=== PATIENT | male | born 1940 | race Caucasian/White ===

== ENCOUNTER 2020-08-28 13:57 | Inpatient (IN) | payer MEDICARE ==
[~2020-08-28] VITALS: Ht 170.2 cm; Wt 65.4 kg
--- NOTE | 2020-08-28 14:56 | PHYS DOC ---
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, hypokalemia Past Medical History Macular degeneration, Neuropathy, eosinophilic gastritis, BPH Limited secondary to dementia Past Surgical History: Other Past Surgical History Limited secondary to dementia Alcohol Use: None Social History Limited secondary to dementia General Adult EDM: Chief Complaint: MEDICAL CLEARANCE HPI: HPI: Patient is a [age] year old [sex] who presents with [] Review of Systems: Review of Systems: Constitutional: Denies fever or chills Eyes: Denies redness or eye pain HENT: Denies nasal congestion or sore throat Respiratory: Denies cough or shortness of breath Cardiovascular: Denies chest pain or palpitations GI: Denies abdominal pain, nausea, or vomiting : Denies dysuria or hematuria Musculoskeletal: Denies back pain or joint pain Integument: Denies rash or skin lesions Neurologic: Denies headache, focal weakness or sensory changes Complete systems were reviewed and found to be within normal limits, except as documented in this note. Allergies: Allergies: Allergies Coded Allergies Type Severity Reaction Last Updated Verified No Known Drug Allergies 08/28/20 No Physical Exam: PE: Constitutional: Well developed, well nourished, no acute distress, non-toxic appearance HENT: Normocephalic, atraumatic Eyes: PERRL, EOMI, conjunctiva normal, no discharge Neck: Normal range of motion, no tenderness, supple Lungs & Thorax: No respiratory distress, equal chest rise and fall Abdomen: Soft, no tenderness Skin: Warm, dry, no erythema, no rash Back: No tenderness, no CVA tenderness Extremities: No tenderness, ROM intact, no edema Neurologic: Alert and oriented X 3, normal motor function, normal sensory function, no focal deficits noted Psychologic: Affect normal, judgment normal Current Patient Data: Vital Signs: Vital Signs Date Time Temp Pulse Resp B/P (MAP) Pulse Ox O2 Delivery O2 Flow Rate FiO2 08/28/20 14:00 98.6 62 16 116/46 96 Room Air EKG: EKG: @1410 NSR at 64bpm, NO ST elevation, QRS 90ms, QT/QTc 412/429ms, t wave inversion II-III and aVF Radiology/Procedures: Radiology/Procedures: [] Heart Score: C/O Chest Pain: N/A Course & Med Decision Making: Course & Med Decision Making Pertinent Labs and Imaging studies reviewed. (See chart for details) Patient medically stable to continue admission to [facility] for further evaluation and treatment. Discussed findings and plan with insurance administrative assistant, who acknowledges understanding and agreement. Carmen Disclaimer: Carmen Disclaimer: This electronic medical record was generated, in whole or in part, using a voice recognition dictation system. Departure Departure: Impression: Primary Impression: Medical clearance for psychiatric admission Disposition: [address] [place] [address] ([facility]) Condition: STABLE Referrals: CHELSEA ANGELES (PCP) RE NEGRO DO Aug 28, 2020 14:56
[2020-08-28 14:58] LABS: BASO % 1 % (0-3); EOS # 0.4 x10^3/uL (0.0-0.7); EOS % 8 % (0-3); HEMATOCRIT 40.1 % (39.0-53.0); HEMOGLOBIN 13.3 g/dL (13.0-17.5); LYMPH # 1.2 x10^3/uL (1.0-4.8); LYMPH % 21 % (24-48); MEAN CORPUSCULAR HEMOGLOBIN 29 pg (25-35); MEAN CORPUSCULAR HGB CONC 33 g/dL (31-37); MEAN CORPUSCULAR VOLUME 88 fL (79-100); MONO # 0.6 x10^3/uL (0.0-1.1); MONO % 11 % (0-9); NEUT # 3.4 x10^3uL (1.8-7.7); NEUT % 60 % (31-73); PLATELET COUNT 134 x10^3/uL (140-400); RED BLOOD COUNT 4.54 x10^6/uL (4.30-5.70); RED CELL DISTRIBUTION WIDTH 15.4 % (11.5-14.5); WHITE BLOOD COUNT 5.7 x10^3/uL (4.0-11.0)
[2020-08-28 14:59] LABS: CREATININE 0.9 mg/dL (0.7-1.3); GFR 81.8; POTASSIUM 4.2 mmol/L (3.5-5.1)
[2020-08-28 15:08] LABS: BACTERIA,URINE 0 /HPF (0-FEW); BILIRUBIN,URINE NEG (NEG); CLARITY,URINE CLEAR; COLOR,URINE YELLOW; GLUCOSE,URINE NEG (NEG); NITRITE,URINE NEG (NEG); RBC,URINE 0 /HPF (0-2); SQUAMOUS EPITHELIAL CELL,UR FEW /LPF; WBC,URINE OCC /HPF (0-4)
[2020-08-28 15:13] LABS: ALBUMIN 3.8 g/dL (3.4-5.0); ALBUMIN/GLOBULIN RATIO 1.4 (1.0-1.7); MAGNESIUM 2.1 mg/dL (1.8-2.4); TOTAL BILIRUBIN 0.5 mg/dL (0.2-1.0); TOTAL PROTEIN 6.6 g/dL (6.4-8.2)
[2020-08-28] MEDS ORDERED: NEOMY/BACITR/POLYMYXIN OINT PACKET. TP ONE (15:15)
--- NOTE | 2020-08-28 15:40 | NUR ---
Admission Note with Justification for Admission to [facility] Patient admitted to [facility] for protective oversight for emergency stabilization of acute psychiatric crisis. Pt admitted from: [facility] Mode of arrival: Secure Transport Accompanied By: [facility] Staff Precipitating behaviors that initiated intake and admission: increased agitation, physically aggressive towards staff, swings cane at staff, inconsistent with taking meds, wandering Description of failure of out patient attempts at stabilization in previous setting list behavior and medication trials: med changes, redirection Behaviors and assessment findings upon admission: Pt very resistive with staff, refusing to get up from the gurney. Once he finally stood up from the gurney and walked into his room, he was uncooperative with staff doing inventory on his belongings. He began to ball up his fists and attempt to hit staff. Staff x3 assist to finish doing inventory. It was given in report that pt has 2 skin tears on his R arm. Pt refusing assessment and is unable to be performed at this time d/t pt combative behaviors. PRN ativan administered with much encouragement and left pt in his room to calm. Will continue to monitor. Plan: Admit for protective oversight for adjustment and stabilization of medications, behaviors and mood. Intense treatment regimen including groups, medication adjustments, therapy, consistent regimen for ADL's, self care, and sleep hygiene. Daily monitoring by Inpatient staff, Psychiatry, and Medical Physician.
[2020-08-28] MEDS ORDERED: LORA0.5T21 PO (15:57)
[2020-08-28] MEDS: LORazepam 0.5 MG TABLET PO PRN (16:06)
[2020-08-28 16:12] VITALS: BP 119/55
[2020-08-28] MEDS ORDERED: LOPERAMIDE 2 MG CAPSULE PO PRN (16:15)
[2020-08-28] MEDS ORDERED: MAG HYDROX/AL HYDROX/SIMETH 30 ML ORAL.SUSP PO PRN ×2 (16:15→16:45)
[2020-08-28] MEDS ORDERED: BISACODYL 10 MG SUPP.RECT PR PRN (16:15)
[2020-08-28] MEDS ORDERED: POLYVINYL ALCOHOL 1.4% OPHTH SOLUTION 15ML BOTTLE. OU PRN (16:15)
[2020-08-28] MEDS ORDERED: ONDANSETRON ODT 4 MG TAB.RAPDIS PO PRN (16:15)
[2020-08-28] MEDS ORDERED: ACETAMINOPHEN 325 MG TABLET PO ONE (16:15)
[2020-08-28] MEDS ORDERED: LORazepam 0.5 MG TABLET PO PRN (16:15)
[2020-08-28] MEDS ORDERED: MAGNESIUM HYDROXIDE 2,400 MG/30 ML ORAL.SUSP. PO PRN ×2 (16:15→16:45)
[2020-08-28] MEDS ORDERED: ACETAMINOPHEN 325 MG TABLET PO PRN (16:45)
[2020-08-28] MEDS ORDERED: METHYL SALICYLATE/MENTHOL TOPICAL OINTMENT 57GM TUBE. TP PRN (16:45)
[2020-08-28 17:15] LABS: VAL ACID 41 mcg/mL (50-100)
[2020-08-28] MEDS: SERTRALINE 100 MG TABLET. PO SCH (17:22)
--- NOTE | 2020-08-28 18:19 | NUR ---
Nursing note: Pt continues to be very labile. I was able to get pictures of the skin tears on his R arm and listen to heart, lung and bowel sounds but pt continues to refuse a thorough skin assessment. Unable to complete skin assessment this shift and will pass on to night staff.
[2020-08-28] MEDS: ATORVASTATIN CALCIUM 10 MG TABLET. PO SCH (20:46)
[2020-08-28] MEDS: MULTIVITAMIN with MINERAL TABLET. PO SCH (20:46)
[2020-08-28] MEDS: MIRTAZAPINE 15 MG TABLET PO SCH (20:47)
[2020-08-28] MEDS: QUEtiapine 100 MG TABLET. PO SCH (20:47)
[2020-08-28] MEDS: DIVALPROEX ER 500 MG TAB.ER.24H PO SCH (20:47)
[2020-08-28] MEDS: ACETAMINOPHEN 325 MG TABLET PO SCH (20:47)
[2020-08-28] MEDS: DICLOFENAC SODIUM 1% TOPICAL GEL 100GM TUBE. TP SCH (21:41)
--- NOTE | 2020-08-28 21:53 | EKG ---
[address] [address] Test Date: 2020-08-28 Test Time: 14:10:40 Pat Name: IGLESIA LEUNG Department: Room: Gender: M [employer] Supervisor: EDWARD : 1940 Requested By: RE NEGRO Order Number: [id number] Reading MD: Measurements Intervals [place] Rate: 64 P: 90 MT: 220 QRS: 80 QRSD: 90 T: -24 QT: 412 QTc: 429 Interpretive Statements SINUS RHYTHM PROLONGED MT INTERVAL ST & T ABNORMALITY, CONSIDER INFERIOR ISCHEMIA OR LEFT VENTRICULAR STRAIN ABNORMAL ECG RI6.02 No previous ECG available for comparison
--- NOTE | 2020-08-28 22:13 | PDOC ---
Exam Note: Raman Note: Please also refer to the separate dictated note~for this date of service dictated separately.~Patient seen individually. Discussed the patient with Nursing staff reviewed the chart.~Reviewed interim history and current functioning. Reviewed vital signs,~Labs/ Radiology~and current medications noted below. Continue current treatment with the changes noted in the dictated addendum note Assessment: Vital Signs/I&O: Vital Signs Date Time Temp Pulse Resp B/P (MAP) Pulse Ox O2 Delivery O2 Flow Rate FiO2 08/28/20 16:12 97.9 85 18 119/55 (76) 100 08/28/20 14:00 Room Air Labs: Laboratory Tests Test 08/28/20 14:19 08/28/20 14:26 Urine Collection Type Unknown Urine Color Yellow Urine Clarity Clear Urine pH 8.5 Urine Specific Carmen 1.020 Urine Protein 30 mg/dl (NEG-TRACE) Urine Glucose (UA) Neg mg/dL (NEG) Urine Ketones (Stick) 80 mg/dL (NEG) Urine Blood Neg (NEG) Urine Nitrite Neg (NEG) Urine Bilirubin Neg (NEG) Urine Urobilinogen Dipstick 1.0 mg/dL (0.2 mg/dL) Urine Leukocyte Esterase Neg (NEG) Urine RBC 0 /HPF (0-2) Urine WBC Occ /HPF (0-4) Urine Squamous Epithelial Cells Few /LPF Urine Bacteria 0 /HPF (0-FEW) Urine Mucus Slight /LPF White Blood Count 5.7 x10^3/uL (4.0-11.0) Red Blood Count 4.54 x10^6/uL (4.30-5.70) Hemoglobin 13.3 g/dL (13.0-17.5) Hematocrit 40.1 % (39.0-53.0) Mean Corpuscular Volume 88 fL (79-100) Mean Corpuscular Hemoglobin 29 pg (25-35) Mean Corpuscular Hemoglobin Concent 33 g/dL (31-37) Red Cell Distribution Width 15.4 % (11.5-14.5) H Platelet Count 134 x10^3/uL (140-400) L Neutrophils (%) (Auto) 60 % (31-73) Lymphocytes (%) (Auto) 21 % (24-48) L Monocytes (%) (Auto) 11 % (0-9) H Eosinophils (%) (Auto) 8 % (0-3) H Basophils (%) (Auto) 1 % (0-3) Neutrophils # (Auto) 3.4 x10^3uL (1.8-7.7) Lymphocytes # (Auto) 1.2 x10^3/uL (1.0-4.8) Monocytes # (Auto) 0.6 x10^3/uL (0.0-1.1) Eosinophils # (Auto) 0.4 x10^3/uL (0.0-0.7) Basophils # (Auto) 0.0 x10^3/uL (0.0-0.2) Sodium Level 148 mmol/L (136-145) H Potassium Level 4.2 mmol/L (3.5-5.1) Chloride Level 107 mmol/L (98-107) Carbon Dioxide Level 31 mmol/L (21-32) Anion Gap 10 (6-14) Blood Urea Nitrogen 41 mg/dL (8-26) H Creatinine 0.9 mg/dL (0.7-1.3) Estimated GFR (Cockcroft-Gault) 81.8 BUN/Creatinine Ratio 46 (6-20) H Glucose Level 87 mg/dL (70-99) Calcium Level 9.0 mg/dL (8.5-10.1) Magnesium Level 2.1 mg/dL (1.8-2.4) Total Bilirubin 0.5 mg/dL (0.2-1.0) Aspartate Amino Transferase (AST) 22 U/L (15-37) Alanine Aminotransferase (ALT) 30 U/L (16-63) Alkaline Phosphatase 54 U/L (46-116) Creatine Kinase 81 U/L (39-308) Creatine Kinase MB (Mass) 1.9 ng/mL (0.0-3.6) Creatine Kinase MB Relative Index 2.3 % (0-4) Troponin I Quantitative < 0.017 ng/mL (0-0.055) Total Protein 6.6 g/dL (6.4-8.2) Albumin 3.8 g/dL (3.4-5.0) Albumin/Globulin Ratio 1.4 (1.0-1.7) Valproic Acid Level 41 mcg/mL (50-100) L Valproic Acid Last Dose Date Unknown Valproic Acid Last Dose Time Unknown Current Medications: Meds: Current Medications Medications (Trade) Dose Ordered Sig/Abundio Route PRN Reason Start Time Stop Time Status Last Admin Dose Admin Neomycin/ Polymyxin/ Bacitracin (Triple Antibiotic Ointment) 1 pkt 1X ONCE TP 08/28/20 15:15 08/28/20 15:16 DC 08/28/20 15:14 Lorazepam (Ativan) 0.5 mg PRN BID PRN PO ANXIETY 08/28/20 16:00 08/28/20 16:06 Atorvastatin Calcium (Lipitor) 10 mg QHS PO 08/28/20 21:00 08/28/20 20:46 Divalproex Sodium (Depakote Er) 500 mg QHS PO 08/28/20 21:00 08/28/20 20:47 Mirtazapine (Remeron) 15 mg QHS PO 08/28/20 21:00 08/28/20 20:47 Multivitamins/ Calcium (Thera-M Plus) 1 tab BID PO 08/28/20 21:00 08/28/20 20:46 Quetiapine Fumarate (SEROquel) 100 mg HS PO 08/28/20 21:00 08/28/20 20:47 Sertraline HCl (Zoloft) 100 mg 1700 PO 08/28/20 17:30 08/28/20 17:22 Acetaminophen (Tylenol) 650 mg BID PO 08/28/20 21:00 08/28/20 20:47 I have reviewed the current psychotropics carefully including drug interactions. Risk benefit ratio favors no change other than as noted in my dictated progress note. Diagnosis: Problems: (1) Medical clearance for psychiatric admission DUANE NINO MD Aug 28, 2020 22:13
--- NOTE | 2020-08-28 22:25 | HP ---
ADMIT DATE: 08/28/2020 PSYCHIATRIC ADMISSION HISTORY/EVALUATION This note covers elements not covered in my initial note of 08/28. IDENTIFYING DATA: The patient is a 79-year-old male referred to us from [facility] in [place], [place] by Dr. Harry Perdomo, his primary care physician on account of worsening confusion with increased agitation, being physically aggressive towards staff, swinging his cane at staff. He was inconsistent with taking his medications, wandering, physically aggressive. Medication adjustments had been made by his primary care physician and he was redirected and behavioral interventions were instituted, but he had failed all of this. His behavior has been deemed dangerous, unmanageable, having failed outpatient psychiatric interventions. He is referred for inpatient psychiatric stabilization and admitted by Heidy Anand, his and designated power of finance attorney. Discussed the patient with nursing staff, met with the patient individually, previously discussed with Viola Tomas, medical staff services coordinator, reviewed information from [facility]. CHIEF COMPLAINT: "I have been here 3 or 4 days." The patient in fact was admitted earlier today. HISTORY OF PRESENT ILLNESS: The patient has a history of major neurocognitive disorder, vascular, possibly Alzheimer's with delusion, depression, behavioral disturbance along with anxiety disorder and impulse control disorder. He has been increasingly agitated with marked mood lability, paranoid, psychotic with sleep and appetite changes. No active suicidal or homicidal ideation, but behaviors have been aggressive, disruptive. No clear history of bipolar disorder. PAST PSYCHIATRIC HISTORY: As above. PAST MEDICAL HISTORY: Positive for hypokalemia, neuropathy, macular degeneration. He is legally blind, has sensorineural hearing loss, tinnitus, hypertension, status post CVA, gastritis, osteoarthritis of knee, osteoporosis, BPH. DRUG ALLERGIES: Negative. CODE STATUS: DNR. Accu-Cheks: None. DIET: Regular. Ambulates with walker. CURRENT PSYCHOTROPICS: Depakote ER 250 mg at bedtime, Ativan 0.5 mg b.i.d. p.r.n. anxiety, Remeron 15 mg at bedtime, Seroquel 50 mg at bedtime p.r.n. and Seroquel 100 mg at bedtime scheduled, Zoloft 100 mg at bedtime. FAMILY HISTORY: Noncontributory. SOCIAL HISTORY: No history of alcohol, drug abuse, physical, sexual or elder abuse. He is not known to be a perpetrator. He is retired from the [employer]. REVIEW OF SYSTEMS: Ambulation impaired. No CV, , pulmonary, eye, ENT system symptoms on review. Reliability poor. MENTAL STATUS EXAM: Oriented to himself. Insight, judgment, recent and remote memory, attention, concentration, fund of knowledge poor consistent with his diagnosis. 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 Memory is quite impaired. He was unaware of the year or who the president is. 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 Rest as above. PLAN: Admit to geropsychiatry unit at [facility]. I will see the patient daily individually from a psychiatric standpoint, medical followup with Dr. Pappas/Dr. Weber. Continue the patient on his current psychotropics, observe baseline, adjust as clinically indicated. We will adjust Depakote to reach therapeutic level and look at other options with psychotropics depending on his appropriately. ESTIMATED LENGTH OF STAY: 10-12 days. DISPOSITION: Back to [facility] when stable. KALLIE DR: Judd TID: [id number]
[2020-08-28] MEDS: QUEtiapine 50 MG TABLET. PO PRN (22:48)
--- NOTE | 2020-08-29 02:34 | NUR ---
Pt has remained labile tonight when doing cares he quickly becomes agitated and swings at staff and one time threatened to "stomp your face if you don't leave me alone". He took HS meds whole via spoon with prompting. He has been difficult to redirect and has not slept tonight. PRN seroquel was given at 2250 but has had minimal effect. He remains very confused and is looking for family members.
[2020-08-29] MEDS: DICLOFENAC SODIUM 1% TOPICAL GEL 100GM TUBE. TP SCH ×3 (06:00→22:00)
[2020-08-29 07:09] LABS: ALBUMIN 4.3 g/dL (3.4-5.0); ALBUMIN/GLOBULIN RATIO 1.3 (1.0-1.7); CALCIUM 9.5 mg/dL (8.5-10.1); GFR 72.5; POTASSIUM 3.8 mmol/L (3.5-5.1); TOTAL BILIRUBIN 0.5 mg/dL (0.2-1.0); TOTAL PROTEIN 7.6 g/dL (6.4-8.2)
[2020-08-29 07:15] LABS: BASO % 1 % (0-3); EOS # 0.4 x10^3/uL (0.0-0.7); EOS % 9 % (0-3); HEMATOCRIT 41.3 % (39.0-53.0); HEMOGLOBIN 13.6 g/dL (13.0-17.5); LYMPH # 1.5 x10^3/uL (1.0-4.8); LYMPH % 30 % (24-48); MEAN CORPUSCULAR HEMOGLOBIN 29 pg (25-35); MEAN CORPUSCULAR HGB CONC 33 g/dL (31-37); MEAN CORPUSCULAR VOLUME 88 fL (79-100); MONO # 0.7 x10^3/uL (0.0-1.1); MONO % 14 % (0-9); NEUT # 2.2 x10^3uL (1.8-7.7); NEUT % 46 % (31-73); PLATELET COUNT 138 x10^3/uL (140-400); RED BLOOD COUNT 4.68 x10^6/uL (4.30-5.70); RED CELL DISTRIBUTION WIDTH 15.7 % (11.5-14.5); WHITE BLOOD COUNT 4.8 x10^3/uL (4.0-11.0)
[2020-08-29] MEDS: PANTOPRAZOLE 40 MG TABLET. PO SCH (08:38)
[2020-08-29] MEDS: MULTIVITAMIN with MINERAL TABLET. PO SCH ×2 (08:38→20:36)
[2020-08-29] MEDS: POTASSIUM CHLORIDE 10 MEQ TABLET.ER. PO SCH (08:38)
[2020-08-29] MEDS: ASPIRIN ENTERIC COATED 81 MG TABLET.DR. PO SCH (08:38)
[2020-08-29] MEDS: ACETAMINOPHEN 325 MG TABLET PO SCH ×2 (08:38→20:34)
[2020-08-29 10:25] LABS: THYROXINE 4.7 ug/dL (4.5-12.0)
--- NOTE | 2020-08-29 12:35 | NUR ---
Nursing Note: Pt has been disoriented and confused majority of the day. At breakfast nursing administered medication crushed in chocolate pudding and explained to him that is what it was. He was very confused and took small bite and held it in his mouth for about a minute. Nurse tried to encourage him to swallow it and explain it to him that those were his medications and once he swallowed he could take a drink of something. He started to spit out the pudding and nursing handed him his coffee and asked him to drink it and he did and was able to drink down the rest of the pudding. The other bite of medications he had he seemed to understand that he needed to swallow and it went down just fine. Pt stated he was having slight right shoulder pain which Diclofenac Sodium was applied and he stated it seemed to help. He hung out in the day room and kept to the himself
--- NOTE | 2020-08-29 13:29 | NUR ---
Wound Care Wound care consult for skin tear to forearm. Pt has multiple small scabbed/approximated skin tears to bilateral forearms. Painted all with skin prep and left KARIN. WC will sign off at this time. Please reconsult if new wounds develop.
--- NOTE | 2020-08-29 15:42 | NUR ---
PSYCHOSOCIAL ASSESSMENT ADMISSION DATE: 08/28/20 CONTACT INFORMATION: DPOA/Guardian Contact Name: Heidy Kika- Contact [address]: [address] [place] [id number] Contact Phone #: [phone] ETHNIC ORIGIN: REASONS FOR ADMISSION: Aggressive Agitated Angry Combative Confusion/Disoriented Poor impulse control Sig. Change Appetite Sig. Change Sleep ADDITIONAL ADMISSION COMMENTS: Per intake record, increased agitation, physically aggressive towards staff, swings cane at staff, inconsistent with taking medications, wandering. REASON FOR ADMISSION IN PATIENT/FAMILY'S OWN WORDS: As noted above. PATIENT/FAMILY EXPECTATIONS FOR ADMISSION: Per Heidy, "for Eric to be at peace, to be able to sleep at night, and eat more." LIVING SITUATION: Patient lives with: Memory Care Other living arrangements: [facility] Contact Name: Caryl Contact Address: [facility] [address] Contact Phone #: [phone] Contact Fax #: [phone] FAMILY RELATIONS: Marital Status: # of Marriages: 1 # of Children: 2 [facility] Family Support: Concerned Cooperative Additional Comments r/t Family: Eric and Heidy have been for 55 years. They have tow children, Erna ([facility]) and Josefa ([facility]). Eric reported his marriage to be "very good." They have two grandchildren, Leilani and Oumou. SIGNIFICANT PSYCHIATRIC/MEDICAL HISTORY: Psychiatric/Treatment History: Eric had out patient appointments at the [facility] for PTSD. Eric was dx with dementia around 4 years ago. Pertinent Family History: Eric has a brother that has memory impairment. HISTORICAL DATA: Childhood Environment: [place] Childhood Environment Additional Comments: Eric was born in [place] to Cristian and Libby Anand. 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 Libby was a homemaker. Eric was the seventh child born of 11. Eric appeared to have fond memories of his family and shared stories about his brothers. While the family was poor, Eric reported them as loving. 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 service: [employer]- drafted into [place] War, served two years Pentecostalism background: Eric is of the Religious ralph. Sexual orientation: Heterosexual Educational Level: Eric graduated high school and attended some college. Past/Present Interests/Hobbies: Eric has enjoyed fly fishing, hunting (deer/elk/rabbits), horse riding, and walking with his . Financial support/resources: Correction/P[place] Monthly income: Unknown Person handling finances: Heidy- Do you have a history of legal problems: None reported Cultural considerations: None reported SOCIAL RELATIONSHIPS-CURRENT/PAST: [facility], in the past PCP: Dr. 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 Outbursts Dec. Aggression Other preliminary treatment comments: Eric will be invited to attend recreational therapy and SW groups while hospitalized. DISCHARGE PLANNING: Discharge planning/disposition: Memory Care Additional discharge needs identified: Out patient psychiatry if available ADDITIONAL INFORMATION: Other Pertinent Data: RENE met with Eric this afternoon to support related to recent admit and complete psychosocial assessment. Eric was alert and oriented to himself only. When asked when he arrived to the hospital, Eric replied "about four years ago." Eric had difficulty recalling recent and remote events. He enjoyed sharing about fishing and hunting and was social with SW. Eric would repeat himself frequently. RENE placed call to Heidy, , who provided history. Heidy will be involved in team meeting via phone on 08/30/20.
[2020-08-29 16:07] VITALS: BP 139/72
[2020-08-29] MEDS: SERTRALINE 100 MG TABLET. PO SCH (17:17)
[2020-08-29 20:21] LABS: THYROID STIM HORMONE (TSH) 2.827 uIU/mL (0.358-3.740)
[2020-08-29] MEDS: QUEtiapine 100 MG TABLET. PO SCH (20:34)
[2020-08-29] MEDS: MIRTAZAPINE 15 MG TABLET PO SCH (20:34)
[2020-08-29] MEDS: DIVALPROEX ER 500 MG TAB.ER.24H PO SCH (20:34)
[2020-08-29] MEDS: traZODone 50 MG TABLET. PO PRN (20:35)
[2020-08-29] MEDS: ATORVASTATIN CALCIUM 10 MG TABLET. PO SCH (20:35)
--- NOTE | 2020-08-29 22:24 | PDOC ---
Exam Note: Raman Note: Please also refer to the separate dictated note~for this date of service dictated separately.~Patient seen individually. Discussed the patient with Nursing staff reviewed the chart.~Reviewed interim history and current functioning. Reviewed vital signs,~Labs/ Radiology~and current medications noted below. Continue current treatment with the changes noted in the dictated addendum note Assessment: Vital Signs/I&O: Vital Signs Date Time Temp Pulse Resp B/P (MAP) Pulse Ox O2 Delivery O2 Flow Rate FiO2 08/29/20 16:07 97.8 80 18 139/72 (94) 98 08/28/20 14:00 Room Air I & O 08/28/20 08/28/20 08/29/20 15:00 23:00 07:00 Intake Total 480 ml 120 ml Balance 480 ml 120 ml Labs: Laboratory Tests Test 08/29/20 06:38 White Blood Count 4.8 x10^3/uL (4.0-11.0) Red Blood Count 4.68 x10^6/uL (4.30-5.70) Hemoglobin 13.6 g/dL (13.0-17.5) Hematocrit 41.3 % (39.0-53.0) Mean Corpuscular Volume 88 fL (79-100) Mean Corpuscular Hemoglobin 29 pg (25-35) Mean Corpuscular Hemoglobin Concent 33 g/dL (31-37) Red Cell Distribution Width 15.7 % (11.5-14.5) H Platelet Count 138 x10^3/uL (140-400) L Neutrophils (%) (Auto) 46 % (31-73) Lymphocytes (%) (Auto) 30 % (24-48) Monocytes (%) (Auto) 14 % (0-9) H Eosinophils (%) (Auto) 9 % (0-3) H Basophils (%) (Auto) 1 % (0-3) Neutrophils # (Auto) 2.2 x10^3uL (1.8-7.7) Lymphocytes # (Auto) 1.5 x10^3/uL (1.0-4.8) Monocytes # (Auto) 0.7 x10^3/uL (0.0-1.1) Eosinophils # (Auto) 0.4 x10^3/uL (0.0-0.7) Basophils # (Auto) 0.0 x10^3/uL (0.0-0.2) D-Dimer (Brenda) 0.42 mg/L (0.00-0.50) Sodium Level 147 mmol/L (136-145) H Potassium Level 3.8 mmol/L (3.5-5.1) Chloride Level 107 mmol/L (98-107) Carbon Dioxide Level 32 mmol/L (21-32) Anion Gap 8 (6-14) Blood Urea Nitrogen 49 mg/dL (8-26) H Creatinine 1.0 mg/dL (0.7-1.3) Estimated GFR (Cockcroft-Gault) 72.5 BUN/Creatinine Ratio 49 (6-20) H Glucose Level 82 mg/dL (70-99) Calcium Level 9.5 mg/dL (8.5-10.1) Iron Level 44 ug/dL (65-175) L Total Iron Binding Capacity 213 ug/dL (250-450) L Iron Saturation 21 % (15-34) Total Bilirubin 0.5 mg/dL (0.2-1.0) Aspartate Amino Transferase (AST) 21 U/L (15-37) Alanine Aminotransferase (ALT) 30 U/L (16-63) Alkaline Phosphatase 55 U/L (46-116) Total Protein 7.6 g/dL (6.4-8.2) Albumin 4.3 g/dL (3.4-5.0) Albumin/Globulin Ratio 1.3 (1.0-1.7) Triglycerides Level 105 mg/dL (0-150) Cholesterol Level 102 mg/dL (0-200) LDL Cholesterol, Calculated 35 mg/dL (0-100) VLDL Cholesterol, Calculated 21 mg/dL (0-40) Non-HDL Cholesterol Calculated 56 mg/dL (0-129) HDL Cholesterol 46 mg/dL (40-60) Cholesterol/HDL Ratio 2.0 Vitamin B12 Level 1132 pg/mL (247-911) H 25-Hydroxy Vitamin D Total 40.4 ng/mL (30-100) Thyroid Stimulating Hormone (TSH) 2.827 uIU/mL (0.358-3.740) Thyroxine (T4) 4.7 ug/dL (4.5-12.0) Total Triiodothyronine (TT3) 75 ng/dL (71-180) Treponema pallidum Antibody Nonreactive (Nonreactive) Current Medications: Meds: Laboratory Tests Test 08/29/20 06:38 White Blood Count 4.8 x10^3/uL Red Blood Count 4.68 x10^6/uL Hemoglobin 13.6 g/dL Hematocrit 41.3 % Mean Corpuscular Volume 88 fL Mean Corpuscular Hemoglobin 29 pg Mean Corpuscular Hemoglobin Concent 33 g/dL Red Cell Distribution Width 15.7 % Platelet Count 138 x10^3/uL Neutrophils (%) (Auto) 46 % Lymphocytes (%) (Auto) 30 % Monocytes (%) (Auto) 14 % Eosinophils (%) (Auto) 9 % Basophils (%) (Auto) 1 % Neutrophils # (Auto) 2.2 x10^3uL Lymphocytes # (Auto) 1.5 x10^3/uL Monocytes # (Auto) 0.7 x10^3/uL Eosinophils # (Auto) 0.4 x10^3/uL Basophils # (Auto) 0.0 x10^3/uL D-Dimer (Brenda) 0.42 mg/L Sodium Level 147 mmol/L Potassium Level 3.8 mmol/L Chloride Level 107 mmol/L Carbon Dioxide Level 32 mmol/L Anion Gap 8 Blood Urea Nitrogen 49 mg/dL Creatinine 1.0 mg/dL Estimated GFR (Cockcroft-Gault) 72.5 BUN/Creatinine Ratio 49 Glucose Level 82 mg/dL Calcium Level 9.5 mg/dL Iron Level 44 ug/dL Total Iron Binding Capacity 213 ug/dL Iron Saturation 21 % Total Bilirubin 0.5 mg/dL Aspartate Amino Transf (AST/SGOT) 21 U/L Alanine Aminotransferase (ALT/SGPT) 30 U/L Alkaline Phosphatase 55 U/L Total Protein 7.6 g/dL Albumin 4.3 g/dL Albumin/Globulin Ratio 1.3 Triglycerides Level 105 mg/dL Cholesterol Level 102 mg/dL LDL Cholesterol, Calculated 35 mg/dL VLDL Cholesterol, Calculated 21 mg/dL Non-HDL Cholesterol Calculated 56 mg/dL HDL Cholesterol 46 mg/dL Cholesterol/HDL Ratio 2.0 Vitamin B12 Level 1132 pg/mL 25-Hydroxy Vitamin D Total 40.4 ng/mL Thyroid Stimulating Hormone (TSH) 2.827 uIU/mL Thyroxine (T4) 4.7 ug/dL Total Triiodothyronine 75 ng/dL Treponema pallidum Antibody Nonreactive Current Medications Medications (Trade) Dose Ordered Sig/Abundio Route PRN Reason Start Time Stop Time Status Last Admin Dose Admin Neomycin/ Polymyxin/ Bacitracin (Triple Antibiotic Ointment) 1 pkt 1X ONCE TP 08/28/20 15:15 08/28/20 15:16 DC 08/28/20 15:14 Lorazepam (Ativan) 0.5 mg PRN BID PRN PO ANXIETY 08/28/20 16:00 08/28/20 16:06 Acetaminophen (Tylenol) 650 mg PRN Q6HRS PRN PO MILD PAIN / TEMP > 100.3'F 08/28/20 16:45 Multi-Ingredient Ointment (Analgesic [place]) 1 will PRN QID PRN TP MUSCLE PAIN 08/28/20 16:45 Al Hydroxide/Mg Hydroxide (Mylanta Plus Xs) 15 ml PRN AFTMEALHC PRN PO DYSPEPSIA 08/28/20 16:45 UNV Magnesium Hydroxide (Milk Of Magnesia) 2,400 mg PRN QHS PRN PO CONSTIPATION 08/28/20 16:45 Aspirin (Aspirin Enteric Coated) 81 mg DAILYWBKFT PO 08/29/20 08:00 08/29/20 08:38 Atorvastatin Calcium (Lipitor) 10 mg QHS PO 08/28/20 21:00 08/29/20 20:35 Bisacodyl (Dulcolax Supp) 10 mg PRN DAILY PRN NC CONSTIPATION 08/28/20 16:15 Divalproex Sodium (Depakote Er) 500 mg QHS PO 08/28/20 21:00 08/29/20 20:34 Loperamide HCl (Imodium) 2 mg PRN Q15MIN PRN PO DIARRHEA 08/28/20 16:15 Lorazepam (Ativan) 0.5 mg PRN BID PRN PO ANXIETY / AGITATION 08/28/20 16:15 Cancel Magnesium Hydroxide (Milk Of Magnesia) 2,400 mg PRN DAILY PRN PO CONSTIPATION 08/28/20 16:15 UNV Mirtazapine (Remeron) 15 mg QHS PO 08/28/20 21:00 08/29/20 20:34 Al Hydroxide/Mg Hydroxide (Mylanta Plus Xs) 15 ml PRN Q2HR PRN PO DYSPEPSIA 08/28/20 16:15 Pantoprazole Sodium (Protonix) 40 mg DAILY PO 08/29/20 09:00 08/29/20 08:38 Ondansetron HCl (Zofran Odt) 4 mg PRN Q6HRS PRN PO NAUSEA/VOMITING 08/28/20 16:15 Potassium Chloride (Klor-Con) 10 meq QODAY@0800 PO 08/29/20 08:00 08/29/20 08:38 Multivitamins/ Calcium (Thera-M Plus) 1 tab BID PO 08/28/20 21:00 08/29/20 20:36 Artificial Tears (Artificial Tears) 1 drop PRN Q15MIN PRN OU DRY EYE 08/28/20 16:15 Quetiapine Fumarate (SEROquel) 50 mg PRN DAILY PRN PO Agitation 08/28/20 16:15 08/28/20 22:48 Quetiapine Fumarate (SEROquel) 100 mg HS PO 08/28/20 21:00 08/29/20 20:34 Sertraline HCl (Zoloft) 100 mg 1700 PO 08/28/20 17:30 08/29/20 17:17 Acetaminophen (Tylenol) 650 mg PRN Q8HRS ONCE PO 08/28/20 16:15 08/28/20 16:16 UNV Acetaminophen (Tylenol) 650 mg BID PO 08/28/20 21:00 08/29/20 20:34 Diclofenac Sodium (Voltaren) 1 will Q8HRS TP 08/28/20 22:00 08/29/20 12:12 Trazodone HCl (Desyrel) 50 mg PRN QHS PRN PO Insomnia 08/29/20 16:30 08/29/20 20:35 Olanzapine (ZyPREXA ZYDIS) 2.5 mg PRN Q2HRS PRN PO PSYCHOSIS 08/29/20 16:30 Current Medications Medications (Trade) Dose Ordered Sig/Abundio Route PRN Reason Start Time Stop Time Status Last Admin Dose Admin Aspirin (Aspirin Enteric Coated) 81 mg DAILYWBKFT PO 08/29/20 08:00 08/29/20 08:38 Pantoprazole Sodium (Protonix) 40 mg DAILY PO 08/29/20 09:00 08/29/20 08:38 Potassium Chloride (Klor-Con) 10 meq QODAY@0800 PO 08/29/20 08:00 08/29/20 08:38 Trazodone HCl (Desyrel) 50 mg PRN QHS PRN PO Insomnia 08/29/20 16:30 08/29/20 20:35 I have reviewed the current psychotropics carefully including drug interactions. Risk benefit ratio favors no change other than as noted in my dictated progress note. Diagnosis: Problems: (1) Major neurocognitive disorder (2) Dementia in Alzheimer's disease with delusions (3) Dementia in Alzheimer's disease with depression (4) Dementia of the Alzheimer's type with early onset with behavioral disturbance (5) Dementia, vascular, with delusions (6) Dementia, vascular, with depression (7) Anxiety disorder, unspecified (8) Impulse control disorder, unspecified DUANE NINO MD Aug 29, 2020 22:24
[2020-08-30 00:07] LABS: HEMOGLOBIN A1C 5.5 % (4.8-5.6)
--- NOTE | 2020-08-30 00:26 | NUR ---
Last evening pt was active on the unit and very social. He was having rambling conversations with anyone near him. He remains confused and has had no aggressive behaviors tonight and was cooperative with care. Meds were given crushed in chocolate pudding and he took them with some prompting. PRN trazodone was given with HS meds and he has been sleeping.
[2020-08-30] MEDS ORDERED: DICLOFENAC SODIUM 1% TOPICAL GEL 100GM TUBE. TP PRN (03:30)
[2020-08-30 06:41] VITALS: BP 162/93
--- NOTE | 2020-08-30 08:28 | PDOC ---
Exam Note: Raman Note: This note is a late entry for 08/29/2020 covers elements not covered in my initial note. Subjective: The patient was seen individually in the evening of 08/29/2020 with Mamadou MONTEMAYOR, discussed and reviewed the chart. He has been steering off, questionable seizures per nursing staff but none specifically noted. Verbally aggressive at times. Physically aggressive last night. Review of Systems: No CV, , pulmonary, eye system symptoms on review. Reliability poor. Mental Status Exam: The patient is oriented to himself. Insight and judgment, recent and remote memory, attention and concentration is poor consistent with her diagnoses. Laboratory Data: Reviewed. Impression: Major neurocognitive disorder Alzheimer vascular with delusion, depression, and behavioral disturbance. Anxiety disorder unspecified. Impulse control disorder unspecified. Plan: Continue current psychotropics. We will start Zyprexa 2.5 mg q.2h. p.r.n. psychosis and agitation, max 10 mg in [address] head if not done in 6 months. Start valproic acid, level is subtherapeutic and we will increase Depakote ER from 250 mg h.s. to 500 mg h.s. Check CBC, CMP, valproic acid level in 3 days. Adjust to reach therapeutic level. Add trazodone 50 mg h.s. p.r.n. insomnia, may repeat x1. Make further adjustments as clinically indicated. Assessment: Vital Signs/I&O: Vital Signs Date Time Temp Pulse Resp B/P (MAP) Pulse Ox O2 Delivery O2 Flow Rate FiO2 08/30/20 06:41 98.5 98 162/93 (116) 96 Room Air 08/29/20 16:07 18 I & O 08/29/20 08/29/20 08/30/20 15:00 23:00 07:00 Intake Total 480 ml 480 ml Balance 480 ml 480 ml Current Medications: Meds: Current Medications Medications (Trade) Dose Ordered Sig/Abundio Route PRN Reason Start Time Stop Time Status Last Admin Dose Admin Neomycin/ Polymyxin/ Bacitracin (Triple Antibiotic Ointment) 1 pkt 1X ONCE TP 08/28/20 15:15 08/28/20 15:16 DC 08/28/20 15:14 Lorazepam (Ativan) 0.5 mg PRN BID PRN PO ANXIETY 08/28/20 16:00 08/28/20 16:06 Acetaminophen (Tylenol) 650 mg PRN Q6HRS PRN PO MILD PAIN / TEMP > 100.3'F 08/28/20 16:45 Multi-Ingredient Ointment (Analgesic [place]) 1 will PRN QID PRN TP 1ST CHOICE MUSCLE PAIN 08/28/20 16:45 Al Hydroxide/Mg Hydroxide (Mylanta Plus Xs) 15 ml PRN AFTMEALHC PRN PO DYSPEPSIA 08/28/20 16:45 UNV Magnesium Hydroxide (Milk Of Magnesia) 2,400 mg PRN QHS PRN PO CONSTIPATION 08/28/20 16:45 Aspirin (Aspirin Enteric Coated) 81 mg DAILYWBKFT PO 08/29/20 08:00 08/29/20 08:38 Atorvastatin Calcium (Lipitor) 10 mg QHS PO 08/28/20 21:00 08/29/20 20:35 Bisacodyl (Dulcolax Supp) 10 mg PRN DAILY PRN OR CONSTIPATION 08/28/20 16:15 Divalproex Sodium (Depakote Er) 500 mg QHS PO 08/28/20 21:00 08/29/20 20:34 Loperamide HCl (Imodium) 2 mg PRN Q15MIN PRN PO DIARRHEA 08/28/20 16:15 Lorazepam (Ativan) 0.5 mg PRN BID PRN PO ANXIETY / AGITATION 08/28/20 16:15 Cancel Magnesium Hydroxide (Milk Of Magnesia) 2,400 mg PRN DAILY PRN PO CONSTIPATION 08/28/20 16:15 UNV Mirtazapine (Remeron) 15 mg QHS PO 08/28/20 21:00 08/29/20 20:34 Al Hydroxide/Mg Hydroxide (Mylanta Plus Xs) 15 ml PRN Q2HR PRN PO DYSPEPSIA 08/28/20 16:15 Pantoprazole Sodium (Protonix) 40 mg DAILY PO 08/29/20 09:00 08/29/20 08:38 Ondansetron HCl (Zofran Odt) 4 mg PRN Q6HRS PRN PO NAUSEA/VOMITING 08/28/20 16:15 Potassium Chloride (Klor-Con) 10 meq QODAY@0800 PO 08/29/20 08:00 08/29/20 08:38 Multivitamins/ Calcium (Thera-M Plus) 1 tab BID PO 08/28/20 21:00 08/29/20 20:36 Artificial Tears (Artificial Tears) 1 drop PRN Q15MIN PRN OU DRY EYE 08/28/20 16:15 Quetiapine Fumarate (SEROquel) 50 mg PRN DAILY PRN PO Agitation 08/28/20 16:15 08/28/20 22:48 Quetiapine Fumarate (SEROquel) 100 mg HS PO 08/28/20 21:00 08/29/20 20:34 Sertraline HCl (Zoloft) 100 mg 1700 PO 08/28/20 17:30 08/29/20 17:17 Acetaminophen (Tylenol) 650 mg PRN Q8HRS ONCE PO 08/28/20 16:15 08/28/20 16:16 UNV Acetaminophen (Tylenol) 650 mg BID PO 08/28/20 21:00 08/29/20 20:34 Diclofenac Sodium (Voltaren) 1 will Q8HRS TP 08/28/20 22:00 08/30/20 03:34 DC 08/29/20 12:12 Trazodone HCl (Desyrel) 50 mg PRN QHS PRN PO Insomnia 08/29/20 16:30 08/29/20 20:35 Olanzapine (ZyPREXA ZYDIS) 2.5 mg PRN Q2HRS PRN PO PSYCHOSIS 08/29/20 16:30 Diclofenac Sodium (Voltaren) 1 will PRN Q8HRS PRN TP 2ND CHOICE MUSCLE PAIN 08/30/20 03:30 Current Medications Medications (Trade) Dose Ordered Sig/Abundio Route PRN Reason Start Time Stop Time Status Last Admin Dose Admin Pantoprazole Sodium (Protonix) 40 mg DAILY PO 08/29/20 09:00 08/29/20 08:38 Trazodone HCl (Desyrel) 50 mg PRN QHS PRN PO Insomnia 08/29/20 16:30 08/29/20 20:35 I have reviewed the current psychotropics carefully including drug interactions. Risk benefit ratio favors no change other than as noted in my dictated progress note. Diagnosis: Problems: (1) Impulse control disorder, unspecified (2) Anxiety disorder, unspecified (3) Dementia, vascular, with depression (4) Dementia, vascular, with delusions (5) Dementia in Alzheimer's disease with depression (6) Dementia in Alzheimer's disease with delusions (7) Dementia of the Alzheimer's type with early onset with behavioral disturbance (8) Major neurocognitive disorder DUANE NINO MD Aug 30, 2020 08:28
[2020-08-30] MEDS: ACETAMINOPHEN 325 MG TABLET PO SCH (09:15)
[2020-08-30] MEDS: ASPIRIN ENTERIC COATED 81 MG TABLET.DR. PO SCH (09:15)
[2020-08-30] MEDS: MULTIVITAMIN with MINERAL TABLET. PO SCH (09:15)
[2020-08-30] MEDS: PANTOPRAZOLE 40 MG TABLET. PO SCH (09:15)
--- NOTE | 2020-08-30 12:37 | NUR ---
WEEKLY ACTIVITY THERAPY NOTE Date of Admission: 08/28/2020 Date of AT Assessment: TBD Precipitating behaviors that initiated intake and admission: increased agitation, physically aggressive towards staff, swings cane at staff, inconsistent with taking meds, wandering Goal aimed: TBD Initial Goal:TBD Weekly progress towards goal: NA Group participation level: Weekly highlights: arrived on unit Behaviors observed: Plan: meet/assess Pt Beneficial adaptations: TBD
--- NOTE | 2020-08-30 13:33 | TX PLAN ---
Interdisciplinary Tx Plan Admission Information Aug 28, 2020 at 15:45 Legal Status (on Admission): Voluntary, DPOA DPOA/Guardian Name: Heidy Boley- Contact Other Contact Name: Caryl Other Contact Verified Code Status: DNR Allergies: Coded Allergies: No Known Drug Allergies (Unverified , 08/28/20) Estimated Length of Stay: 14 Diagnoses Primary Diagnosis: Major neurocognitive d/o vascular Alz with delusions, depression, BD; Anxiety d/o unspecified; Impulse Control d/o Reasons for Admission: Aggressive, Agitated, Sig. Change Appetite, Sig. Change Sleep, Angry, Combative, Confusion/Disoriented, Poor impulse control Problem in Patient's Words: As noted above. Additional Admission Comments: Per intake record, increased agitation, physically aggressive towards staff, swings cane at staff, inconsistent with taking medications, wandering. Problems Active Problems: Agitation Physically aggressive Medication resistant Confused/memory impaired Wandering Inactive Problems: Medications crushed Slept 7 hours last night Pt Strengths/Limitations Ability for Day: Poor Cognitive Functioning/Ability: Poor Communication Skills/Ability: Fair Financial Resources: Fair Insight/Judgement: Poor Intellectual Ability: Fair Physical Health: Fair Social Skills: Fair Stability in Family: Good Verbal Skills: Fair Discharge Criteria Discharge Criteria: Adequate arrangements @DC, Improved behavior, Improved mood/thought Preliminary Discharge Plan Preliminary DC Plan: Memory Care Other Arrangements: [facility], memory care Special Precautions Special Precautions: Agitation/Assault Fall Risk: High Initial D/C Plan Eric will return to [facility] once stable Identified Discharge Needs: Out patient psychiatry if available, restorative therapy program, activites to occupy time, allow adequate time for Eric to process and respond. Currently Utilized Resources Currently Utilized Resources/P: [facility]CP [facility], out [facility] mental [facility] clinic Referrals Community Resources: [facility], out patient [facility] clinic Identified Problems/Hx/Goals Objectives/Short-Term Goals Short Term Goals: Control abnormal behavior, Dec. Aggression, Dec. Outbursts, Medication Stabilization, Monitor Med Effects Short Term Goals in Patient's: Per POA, for Eric to be at peace, be able to sleep at night, and have adequate meal intake. Interventions/Frequency Staff Interventions/Frequency&: Nursing to provide routine safety checks, medication administration, and adl support. Psychiatry to se three times weekly. SW to see twice weekly. SW and recreational therapy activities as Eric allows. 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 Social: Eric enjoys fly fishing, hunting, and walking with his . Education: Eric graduated high school and attended some college. Community Follow-up PCP Out patient psychiatry thru [facility] Community Provider/Family Inpu: Heidy () and Erna (daughter) participated in team meeting via phone on this date. Treatment Plan Explained Patient/Building Associate had this treatment plan explained to him/her as indicated by the signature below and has been given the opportunity to ask questions and make suggestions: Date: Patient/Building Associate Signature: MARYBEL MARQUEZ Aug 30, 2020 13:33
--- NOTE | 2020-08-30 13:50 | NUR ---
ACTIVITY THERAPY ASSESSMENT Completed based on observation, interview, and notes. Pt. was sitting in the day room and agreeable to speak with SPECIAL EDUCATION CASE MANAGER. She introduced herself as "Kavya" and Pt complimented her name and eyes. He spoke softly and was hard of hearing throughout interview. His glasses rested on the tip of his nose with the right lens fogged out. He was wearing his wrist watch and ring during interview and he usually has a furrowed brow and appears lost at times. He was confused and had difficulty recalling facts, details and making choices. He jokes with staff a bit when CNAs came to take his vital signs. CNAs report Pt. can be resistive with ADLs occasionally. Pt. was pleasant the entire interview and he needed prompting to say whether or not he enjoyed a leisure activity- music: "country", TV: "not really", stated he has "plenty of work to do." Psychosocial indicated Pt has enjoyed fly fishing, hunting (deer, elk, rabbits), horse riding, and walking with his . Pt. is in the day room most of the time and socializes with others well. Initial goal aimed to increase stimulation: Pt. will participate in at lease five Activity Therapy groups or individual sessions before discharge. Addendum: 09/06/20 at 1252 by FRANSISCO ANTON ACT Goal repeated 09/06
--- NOTE | 2020-08-30 15:41 | RAD ---
CT Head without contrast 08/30/2020 1:50 PM Indication: Reason: ALZHEIMERS / Spl. Instructions: / History: Comparison: None Findings: No intracranial hemorrhage is seen. No evidence of acute territorial infarct is seen. Note that CT is limited in sensitivity for acute ischemia. Age-related atrophic changes are noted. No abnormal extra axial fluid collection is identified. No mass effect or midline shift is seen. No ac prince osseous abnormalities are seen. Impression: 1. No acute intracranial process identified 2. Senescent atrophic changes CT DOSING PQRS STATEMENT: One or more of the following individualized dose reduction techniques were utilized for this examinat ion: 1. Automated exposure control 2. Adjustment of the mA and/or kV according to patient size 3. Use of iterative reconstruction technique Electronically signed by: Alber Segundo MD (08/30/2020 3:39 PM) [id number]
--- NOTE | 2020-08-30 15:44 | NUR ---
Nurse note Patient alert to self pleasantly confused. Hard to redirect at times. Medications are crushed in pudding. Takes awhile for him to swallow medication. delusions of the" the little boys need help down the road" patient is redirected with failed attempts at times. Order for CT with out contrast, Ct done today awaiting results.Patient has not shown any aggressive behavior this shift.
[2020-08-30 16:00] VITALS: BP 99/54
[2020-08-30] MEDS: SERTRALINE 100 MG TABLET. PO SCH (17:29)
--- NOTE | 2020-08-30 22:19 | PDOC ---
Exam Note: Raman Note: Please also refer to the separate dictated note~for this date of service dictated separately.~Patient seen individually. Discussed the patient with Nursing staff reviewed the chart.~Reviewed interim history and current functioning. Reviewed vital signs,~Labs/ Radiology~and current medications noted below. Continue current treatment with the changes noted in the dictated addendum note Assessment: Vital Signs/I&O: Vital Signs Date Time Temp Pulse Resp B/P (MAP) Pulse Ox O2 Delivery O2 Flow Rate FiO2 08/30/20 16:00 97.8 88 20 99/54 (69) 99 08/30/20 06:41 Room Air I & O 08/29/20 08/29/20 08/30/20 15:00 23:00 07:00 Intake Total 480 ml 480 ml Balance 480 ml 480 ml Current Medications: Meds: Current Medications Medications (Trade) Dose Ordered Sig/Abundio Route PRN Reason Start Time Stop Time Status Last Admin Dose Admin Neomycin/ Polymyxin/ Bacitracin (Triple Antibiotic Ointment) 1 pkt 1X ONCE TP 08/28/20 15:15 08/28/20 15:16 DC 08/28/20 15:14 Lorazepam (Ativan) 0.5 mg PRN BID PRN PO ANXIETY 08/28/20 16:00 08/28/20 16:06 Acetaminophen (Tylenol) 650 mg PRN Q6HRS PRN PO MILD PAIN / TEMP > 100.3'F 08/28/20 16:45 Multi-Ingredient Ointment (Analgesic [place]) 1 will PRN QID PRN TP 1ST CHOICE MUSCLE PAIN 08/28/20 16:45 Al Hydroxide/Mg Hydroxide (Mylanta Plus Xs) 15 ml PRN AFTMEALHC PRN PO DYSPEPSIA 08/28/20 16:45 UNV Magnesium Hydroxide (Milk Of Magnesia) 2,400 mg PRN QHS PRN PO CONSTIPATION 08/28/20 16:45 Aspirin (Aspirin Enteric Coated) 81 mg DAILYWBKFT PO 08/29/20 08:00 08/30/20 09:15 Atorvastatin Calcium (Lipitor) 10 mg QHS PO 08/28/20 21:00 08/29/20 20:35 Bisacodyl (Dulcolax Supp) 10 mg PRN DAILY PRN MT CONSTIPATION 08/28/20 16:15 Divalproex Sodium (Depakote Er) 500 mg QHS PO 08/28/20 21:00 08/29/20 20:34 Loperamide HCl (Imodium) 2 mg PRN Q15MIN PRN PO DIARRHEA 08/28/20 16:15 Lorazepam (Ativan) 0.5 mg PRN BID PRN PO ANXIETY / AGITATION 08/28/20 16:15 Cancel Magnesium Hydroxide (Milk Of Magnesia) 2,400 mg PRN DAILY PRN PO CONSTIPATION 08/28/20 16:15 UNV Mirtazapine (Remeron) 15 mg QHS PO 08/28/20 21:00 08/29/20 20:34 Al Hydroxide/Mg Hydroxide (Mylanta Plus Xs) 15 ml PRN Q2HR PRN PO DYSPEPSIA 08/28/20 16:15 Pantoprazole Sodium (Protonix) 40 mg DAILY PO 08/29/20 09:00 08/30/20 09:15 Ondansetron HCl (Zofran Odt) 4 mg PRN Q6HRS PRN PO NAUSEA/VOMITING 08/28/20 16:15 Potassium Chloride (Klor-Con) 10 meq QODAY@0800 PO 08/29/20 08:00 08/29/20 08:38 Multivitamins/ Calcium (Thera-M Plus) 1 tab BID PO 08/28/20 21:00 08/30/20 09:15 Artificial Tears (Artificial Tears) 1 drop PRN Q15MIN PRN OU DRY EYE 08/28/20 16:15 Quetiapine Fumarate (SEROquel) 50 mg PRN DAILY PRN PO Agitation 08/28/20 16:15 08/28/20 22:48 Quetiapine Fumarate (SEROquel) 100 mg HS PO 08/28/20 21:00 08/29/20 20:34 Sertraline HCl (Zoloft) 100 mg 1700 PO 08/28/20 17:30 08/30/20 17:29 Acetaminophen (Tylenol) 650 mg PRN Q8HRS ONCE PO 08/28/20 16:15 08/28/20 16:16 UNV Acetaminophen (Tylenol) 650 mg BID PO 08/28/20 21:00 08/30/20 09:15 Diclofenac Sodium (Voltaren) 1 will Q8HRS TP 08/28/20 22:00 08/30/20 03:34 DC 08/29/20 12:12 Trazodone HCl (Desyrel) 50 mg PRN QHS PRN PO Insomnia 08/29/20 16:30 08/29/20 20:35 Olanzapine (ZyPREXA ZYDIS) 2.5 mg PRN Q2HRS PRN PO PSYCHOSIS 08/29/20 16:30 Diclofenac Sodium (Voltaren) 1 will PRN Q8HRS PRN TP 2ND CHOICE MUSCLE PAIN 08/30/20 03:30 I have reviewed the current psychotropics carefully including drug interactions. Risk benefit ratio favors no change other than as noted in my dictated progress note. Diagnosis: Problems: (1) Impulse control disorder, unspecified (2) Anxiety disorder, unspecified (3) Dementia, vascular, with depression (4) Dementia, vascular, with delusions (5) Dementia in Alzheimer's disease with depression (6) Dementia in Alzheimer's disease with delusions (7) Dementia of the Alzheimer's type with early onset with behavioral disturbance (8) Major neurocognitive disorder DUANE NINO MD Aug 30, 2020 22:19
[2020-08-31] MEDS: DIVALPROEX ER 500 MG TAB.ER.24H PO SCH ×2 (00:56→21:23)
[2020-08-31] MEDS: MULTIVITAMIN with MINERAL TABLET. PO SCH ×3 (00:57→21:24)
[2020-08-31] MEDS: traZODone 50 MG TABLET. PO PRN (00:57)
[2020-08-31] MEDS: ACETAMINOPHEN 325 MG TABLET PO SCH ×3 (00:57→21:24)
[2020-08-31] MEDS: MIRTAZAPINE 15 MG TABLET PO SCH ×2 (00:57→21:24)
[2020-08-31] MEDS: QUEtiapine 100 MG TABLET. PO SCH ×2 (00:57→21:24)
[2020-08-31] MEDS: ATORVASTATIN CALCIUM 10 MG TABLET. PO SCH ×2 (00:58→21:23)
--- NOTE | 2020-08-31 02:13 | NUR ---
Last evening pt was less restless than he has been on prior shifts and would sit quietly at times. He was very social with a peer and they had a long rambling conversation. After he watched a peer take their HS meds he said he was ready for his pills which he took whole, several at a time from a spoon, with some prompting. After meds he went to bed and has been sleeping. PRN Trazodone was given with HS meds again tonight.
[2020-08-31 06:35] VITALS: BP 149/81
[2020-08-31] MEDS: ASPIRIN ENTERIC COATED 81 MG TABLET.DR. PO SCH (08:16)
[2020-08-31] MEDS: POTASSIUM CHLORIDE 10 MEQ TABLET.ER. PO SCH (08:17)
[2020-08-31] MEDS: PANTOPRAZOLE 40 MG TABLET. PO SCH (08:17)
--- NOTE | 2020-08-31 15:03 | NUR ---
Nurse Note Patient awake alert . Patient socializing with other peers. Patient took medication whole after watching another peer takes their. Patient to be prompt, it takes time for him to understand the redirection. Patient is quiet unless spoken to him. Patient is cooperative with staff.
[2020-08-31 16:18] VITALS: BP 124/73
[2020-08-31] MEDS: SERTRALINE 100 MG TABLET. PO SCH (17:23)
--- NOTE | 2020-08-31 22:12 | PDOC ---
Exam Note: Raman Note: Please also refer to the separate dictated note~for this date of service dictated separately.~Patient seen individually. Discussed the patient with Nursing staff reviewed the chart.~Reviewed interim history and current functioning. Reviewed vital signs,~Labs/ Radiology~and current medications noted below. Continue current treatment with the changes noted in the dictated addendum note Assessment: Vital Signs/I&O: Vital Signs Date Time Temp Pulse Resp B/P (MAP) Pulse Ox O2 Delivery O2 Flow Rate FiO2 08/31/20 16:18 97.3 91 20 124/73 (90) 92 08/30/20 06:41 Room Air I & O 08/30/20 08/30/20 08/31/20 15:00 23:00 07:00 Intake Total 360 ml 440 ml Balance 360 ml 440 ml Current Medications: Meds: Current Medications Medications (Trade) Dose Ordered Sig/Abundio Route PRN Reason Start Time Stop Time Status Last Admin Dose Admin Neomycin/ Polymyxin/ Bacitracin (Triple Antibiotic Ointment) 1 pkt 1X ONCE TP 08/28/20 15:15 08/28/20 15:16 DC 08/28/20 15:14 Lorazepam (Ativan) 0.5 mg PRN BID PRN PO ANXIETY 08/28/20 16:00 08/28/20 16:06 Acetaminophen (Tylenol) 650 mg PRN Q6HRS PRN PO MILD PAIN / TEMP > 100.3'F 08/28/20 16:45 Multi-Ingredient Ointment (Analgesic [place]) 1 will PRN QID PRN TP 1ST CHOICE MUSCLE PAIN 08/28/20 16:45 Al Hydroxide/Mg Hydroxide (Mylanta Plus Xs) 15 ml PRN AFTMEALHC PRN PO DYSPEPSIA 08/28/20 16:45 UNV Magnesium Hydroxide (Milk Of Magnesia) 2,400 mg PRN QHS PRN PO CONSTIPATION 08/28/20 16:45 Aspirin (Aspirin Enteric Coated) 81 mg DAILYWBKFT PO 08/29/20 08:00 08/31/20 08:16 Atorvastatin Calcium (Lipitor) 10 mg QHS PO 08/28/20 21:00 08/31/20 21:23 Bisacodyl (Dulcolax Supp) 10 mg PRN DAILY PRN MD CONSTIPATION 08/28/20 16:15 Divalproex Sodium (Depakote Er) 500 mg QHS PO 08/28/20 21:00 08/31/20 21:23 Loperamide HCl (Imodium) 2 mg PRN Q15MIN PRN PO DIARRHEA 08/28/20 16:15 Lorazepam (Ativan) 0.5 mg PRN BID PRN PO ANXIETY / AGITATION 08/28/20 16:15 Cancel Magnesium Hydroxide (Milk Of Magnesia) 2,400 mg PRN DAILY PRN PO CONSTIPATION 08/28/20 16:15 UNV Mirtazapine (Remeron) 15 mg QHS PO 08/28/20 21:00 08/31/20 21:24 Al Hydroxide/Mg Hydroxide (Mylanta Plus Xs) 15 ml PRN Q2HR PRN PO DYSPEPSIA 08/28/20 16:15 Pantoprazole Sodium (Protonix) 40 mg DAILY PO 08/29/20 09:00 08/31/20 08:17 Ondansetron HCl (Zofran Odt) 4 mg PRN Q6HRS PRN PO NAUSEA/VOMITING 08/28/20 16:15 Potassium Chloride (Klor-Con) 10 meq QODAY@0800 PO 08/29/20 08:00 08/31/20 08:17 Multivitamins/ Calcium (Thera-M Plus) 1 tab BID PO 08/28/20 21:00 08/31/20 21:24 Artificial Tears (Artificial Tears) 1 drop PRN Q15MIN PRN OU DRY EYE 08/28/20 16:15 Quetiapine Fumarate (SEROquel) 50 mg PRN DAILY PRN PO Agitation 08/28/20 16:15 08/28/20 22:48 Quetiapine Fumarate (SEROquel) 100 mg HS PO 08/28/20 21:00 08/31/20 21:24 Sertraline HCl (Zoloft) 100 mg 1700 PO 08/28/20 17:30 08/31/20 17:23 Acetaminophen (Tylenol) 650 mg PRN Q8HRS ONCE PO 08/28/20 16:15 08/28/20 16:16 UNV Acetaminophen (Tylenol) 650 mg BID PO 08/28/20 21:00 08/31/20 21:24 Diclofenac Sodium (Voltaren) 1 will Q8HRS TP 08/28/20 22:00 08/30/20 03:34 DC 08/29/20 12:12 Trazodone HCl (Desyrel) 50 mg PRN QHS PRN PO Insomnia 08/29/20 16:30 08/31/20 00:57 Olanzapine (ZyPREXA ZYDIS) 2.5 mg PRN Q2HRS PRN PO PSYCHOSIS 08/29/20 16:30 Diclofenac Sodium (Voltaren) 1 will PRN Q8HRS PRN TP 2ND CHOICE MUSCLE PAIN 08/30/20 03:30 I have reviewed the current psychotropics carefully including drug interactions. Risk benefit ratio favors no change other than as noted in my dictated progress note. Diagnosis: Problems: (1) Impulse control disorder, unspecified (2) Anxiety disorder, unspecified (3) Dementia, vascular, with depression (4) Dementia, vascular, with delusions (5) Dementia in Alzheimer's disease with depression (6) Dementia in Alzheimer's disease with delusions (7) Dementia of the Alzheimer's type with early onset with behavioral disturbance (8) Major neurocognitive disorder DUANE NINO MD Aug 31, 2020 22:12
[2020-09-01 05:29] VITALS: BP 142/77
[2020-09-01] MEDS: PANTOPRAZOLE 40 MG TABLET. PO SCH (05:33)
[2020-09-01] MEDS: MULTIVITAMIN with MINERAL TABLET. PO SCH ×2 (08:14→20:10)
[2020-09-01] MEDS: ASPIRIN ENTERIC COATED 81 MG TABLET.DR. PO SCH (08:15)
[2020-09-01] MEDS: ACETAMINOPHEN 325 MG TABLET PO SCH ×2 (08:17→20:10)
--- NOTE | 2020-09-01 09:21 | PDOC ---
Exam Note: Raman Note: This note is a late entry for 08/30/2020 covers elements not covered in my initial note. Subjective: The patient was seen individually in the morning of 08/30/2020 for a treatment team meeting with Viola Dozier, Chioma Coburn (social media strategist), Maira, activity therapy and Alysa MONTEMAYOR, discussed and reviewed the chart. Discussed his diagnoses, progress, current psychotropics, reviewed drug interactions, risk-benefit ratio. The patient slept 4-3/4 hours previous night. The patients Heidy attended the conference together with Erna his daughter. He took his medications crushed in the morning. We will go ahead and do CT head with no contrast since one has not been done for about 3 years according to the . At other times he takes meds crushed in pudding. indicated that patient responds well if he is told ahead of time what the staff would be doing and we will implement this. The patient is quite confused, w andering into other patients rooms and I had to take him gently out of their rooms on 2 to 3 separate occasions on rounds. Review of Systems: No CV, , pulmonary, eye system symptoms on review. Reliability poor. Mental Status Exam: The patient is oriented to himself. Insight and judgment, recent and remote memory, attention and concentration is poor consistent with her diagnoses. Laboratory Data: Reviewed. Impression: Major neurocognitive disorder Alzheimer vascular with delusion, depression, and behavioral disturbance. Anxiety disorder unspecified. Impulse control disorder unspecified. Plan: Continue current psychotropics. Await results of CT head. Valproic acid level is 41 subtherapeutic. Maintain Seroquel, Remeron. Make further adjustme nts as clinically indicated. We may increase Depakote to reach therapeutic level depending on his progress. Assessment: Vital Signs/I&O: Vital Signs Date Time Temp Pulse Resp B/P (MAP) Pulse Ox O2 Delivery O2 Flow Rate FiO2 09/01/20 05:29 96.3 64 18 142/77 (98) 97 Room Air I & O 08/31/20 08/31/20 09/01/20 15:00 23:00 07:00 Intake Total 720 ml 480 ml 240 ml Balance 720 ml 480 ml 240 ml Current Medications: Meds: Current Medications Medications (Trade) Dose Ordered Sig/Abundio Route PRN Reason Start Time Stop Time Status Last Admin Dose Admin Neomycin/ Polymyxin/ Bacitracin (Triple Antibiotic Ointment) 1 pkt 1X ONCE TP 08/28/20 15:15 08/28/20 15:16 DC 08/28/20 15:14 Lorazepam (Ativan) 0.5 mg PRN BID PRN PO ANXIETY 08/28/20 16:00 08/28/20 16:06 Acetaminophen (Tylenol) 650 mg PRN Q6HRS PRN PO MILD PAIN / TEMP > 100.3'F 08/28/20 16:45 Multi-Ingredient Ointment (Analgesic [place]) 1 will PRN QID PRN TP 1ST CHOICE MUSCLE PAIN 08/28/20 16:45 Al Hydroxide/Mg Hydroxide (Mylanta Plus Xs) 15 ml PRN AFTMEALHC PRN PO DYSPEPSIA 08/28/20 16:45 UNV Magnesium Hydroxide (Milk Of Magnesia) 2,400 mg PRN QHS PRN PO CONSTIPATION 08/28/20 16:45 Aspirin (Aspirin Enteric Coated) 81 mg DAILYWBKFT PO 08/29/20 08:00 09/01/20 08:15 Atorvastatin Calcium (Lipitor) 10 mg QHS PO 08/28/20 21:00 08/31/20 21:23 Bisacodyl (Dulcolax Supp) 10 mg PRN DAILY PRN [place] CONSTIPATION 08/28/20 16:15 Divalproex Sodium (Depakote Er) 500 mg QHS PO 08/28/20 21:00 08/31/20 21:23 Loperamide HCl (Imodium) 2 mg PRN Q15MIN PRN PO DIARRHEA 08/28/20 16:15 Lorazepam (Ativan) 0.5 mg PRN BID PRN PO ANXIETY / AGITATION 08/28/20 16:15 Cancel Magnesium Hydroxide (Milk Of Magnesia) 2,400 mg PRN DAILY PRN PO CONSTIPATION 08/28/20 16:15 UNV Mirtazapine (Remeron) 15 mg QHS PO 08/28/20 21:00 08/31/20 21:24 Al Hydroxide/Mg Hydroxide (Mylanta Plus Xs) 15 ml PRN Q2HR PRN PO DYSPEPSIA 08/28/20 16:15 Pantoprazole Sodium (Protonix) 40 mg DAILY PO 08/29/20 09:00 09/01/20 05:33 Ondansetron HCl (Zofran Odt) 4 mg PRN Q6HRS PRN PO NAUSEA/VOMITING 08/28/20 16:15 Potassium Chloride (Klor-Con) 10 meq QODAY@0800 PO 08/29/20 08:00 08/31/20 08:17 Multivitamins/ Calcium (Thera-M Plus) 1 tab BID PO 08/28/20 21:00 09/01/20 08:14 Artificial Tears (Artificial Tears) 1 drop PRN Q15MIN PRN OU DRY EYE 08/28/20 16:15 Quetiapine Fumarate (SEROquel) 50 mg PRN DAILY PRN PO Agitation 08/28/20 16:15 08/28/20 22:48 Quetiapine Fumarate (SEROquel) 100 mg HS PO 08/28/20 21:00 08/31/20 21:24 Sertraline HCl (Zoloft) 100 mg 1700 PO 08/28/20 17:30 08/31/20 17:23 Acetaminophen (Tylenol) 650 mg PRN Q8HRS ONCE PO 08/28/20 16:15 08/28/20 16:16 UNV Acetaminophen (Tylenol) 650 mg BID PO 08/28/20 21:00 09/01/20 08:17 Diclofenac Sodium (Voltaren) 1 will Q8HRS TP 08/28/20 22:00 08/30/20 03:34 DC 08/29/20 12:12 Trazodone HCl (Desyrel) 50 mg PRN QHS PRN PO Insomnia 08/29/20 16:30 08/31/20 00:57 Olanzapine (ZyPREXA ZYDIS) 2.5 mg PRN Q2HRS PRN PO PSYCHOSIS 08/29/20 16:30 Diclofenac Sodium (Voltaren) 1 will PRN Q8HRS PRN TP 2ND CHOICE MUSCLE PAIN 08/30/20 03:30 I have reviewed the current psychotropics carefully including drug interactions. Risk benefit ratio favors no change other than as noted in my dictated progress note. Diagnosis: Problems: (1) Impulse control disorder, unspecified (2) Anxiety disorder, unspecified (3) Dementia, vascular, with depression (4) Dementia, vascular, with delusions (5) Dementia in Alzheimer's disease with depression (6) Dementia in Alzheimer's disease with delusions (7) Dementia of the Alzheimer's type with early onset with behavioral disturbance (8) Major neurocognitive disorder DUANE NINO MD Sep 01, 2020 09:21
--- NOTE | 2020-09-01 10:43 | NUR ---
Nurse Note Patient up in day room. Delusions have parent has left to go [place] seas and left her with the kids.Patient redirected with little progress.Patient not tearful at this time. Compliant with medication, take whole. Patient is socializing with staff and other patient. Patient to be prompt. Addendum: 09/01/20 at 1100 by BRITTNY PRASAD LPN LPN Nurse Note Patient up for meals appetite adequate. In day room for socialization with other patients and staff. Patient is medication compliant.Ambulates in hallway. Slow with redirection and prompts.No aggressions or irritable at this time.
[2020-09-01 15:52] LABS: BASO % 1 % (0-3); EOS # 0.5 x10^3/uL (0.0-0.7); EOS % 9 % (0-3); HEMATOCRIT 39.1 % (39.0-53.0); HEMOGLOBIN 12.6 g/dL (13.0-17.5); LYMPH # 1.3 x10^3/uL (1.0-4.8); LYMPH % 23 % (24-48); MEAN CORPUSCULAR HEMOGLOBIN 29 pg (25-35); MEAN CORPUSCULAR HGB CONC 32 g/dL (31-37); MEAN CORPUSCULAR VOLUME 90 fL (79-100); MONO # 0.7 x10^3/uL (0.0-1.1); MONO % 13 % (0-9); NEUT # 3.1 x10^3uL (1.8-7.7); NEUT % 56 % (31-73); PLATELET COUNT 149 x10^3/uL (140-400); RED BLOOD COUNT 4.36 x10^6/uL (4.30-5.70); RED CELL DISTRIBUTION WIDTH 16.1 % (11.5-14.5); WHITE BLOOD COUNT 5.6 x10^3/uL (4.0-11.0)
[2020-09-01 15:54] LABS: ALBUMIN 3.8 g/dL (3.4-5.0); ALBUMIN/GLOBULIN RATIO 1.2 (1.0-1.7); ALK PHOS 52 U/L (46-116); ALT (SGPT) 27 U/L (16-63); ANION GAP 8 (6-14); AST (SGOT) 17 U/L (15-37); BLOOD UREA NITROGEN 34 mg/dL (8-26); BUN/CREATININE RATIO 43 (6-20); CALCIUM 8.6 mg/dL (8.5-10.1); CARBON DIOXIDE 29 mmol/L (21-32); CHLORIDE 110 mmol/L (98-107); CREATININE 0.8 mg/dL (0.7-1.3); GFR 93.7; GLUCOSE 91 mg/dL (70-99); POTASSIUM 4.7 mmol/L (3.5-5.1); SODIUM 147 mmol/L (136-145); TOTAL BILIRUBIN 0.4 mg/dL (0.2-1.0); TOTAL PROTEIN 6.9 g/dL (6.4-8.2)
[2020-09-01 15:59] LABS: VAL ACID 39 mcg/mL (50-100)
[2020-09-01 16:28] VITALS: BP 134/78
[2020-09-01] MEDS: SERTRALINE 100 MG TABLET. PO SCH (17:43)
[2020-09-01] MEDS: QUEtiapine 100 MG TABLET. PO SCH (20:10)
[2020-09-01] MEDS: ATORVASTATIN CALCIUM 10 MG TABLET. PO SCH (20:10)
[2020-09-01] MEDS: MIRTAZAPINE 15 MG TABLET PO SCH (20:10)
[2020-09-01] MEDS: DIVALPROEX ER 250 MG TAB.ER.24H. PO SCH (21:00)
--- NOTE | 2020-09-01 22:12 | PDOC ---
Exam Note: Raman Note: Please also refer to the separate dictated note~for this date of service dictated separately.~Patient seen individually. Discussed the patient with Nursing staff reviewed the chart.~Reviewed interim history and current functioning. Reviewed vital signs,~Labs/ Radiology~and current medications noted below. Continue current treatment with the changes noted in the dictated addendum note Assessment: Vital Signs/I&O: Vital Signs Date Time Temp Pulse Resp B/P (MAP) Pulse Ox O2 Delivery O2 Flow Rate FiO2 09/01/20 16:28 98.1 70 19 134/78 (96) 98 09/01/20 05:29 Room Air I & O 08/31/20 08/31/20 09/01/20 15:00 23:00 07:00 Intake Total 720 ml 480 ml 240 ml Balance 720 ml 480 ml 240 ml Labs: Laboratory Tests Test 09/01/20 15:20 White Blood Count 5.6 x10^3/uL (4.0-11.0) Red Blood Count 4.36 x10^6/uL (4.30-5.70) Hemoglobin 12.6 g/dL (13.0-17.5) L Hematocrit 39.1 % (39.0-53.0) Mean Corpuscular Volume 90 fL (79-100) Mean Corpuscular Hemoglobin 29 pg (25-35) Mean Corpuscular Hemoglobin Concent 32 g/dL (31-37) Red Cell Distribution Width 16.1 % (11.5-14.5) H Platelet Count 149 x10^3/uL (140-400) Neutrophils (%) (Auto) 56 % (31-73) Lymphocytes (%) (Auto) 23 % (24-48) L Monocytes (%) (Auto) 13 % (0-9) H Eosinophils (%) (Auto) 9 % (0-3) H Basophils (%) (Auto) 1 % (0-3) Neutrophils # (Auto) 3.1 x10^3uL (1.8-7.7) Lymphocytes # (Auto) 1.3 x10^3/uL (1.0-4.8) Monocytes # (Auto) 0.7 x10^3/uL (0.0-1.1) Eosinophils # (Auto) 0.5 x10^3/uL (0.0-0.7) Basophils # (Auto) 0.0 x10^3/uL (0.0-0.2) Sodium Level 147 mmol/L (136-145) H Potassium Level 4.7 mmol/L (3.5-5.1) Chloride Level 110 mmol/L (98-107) H Carbon Dioxide Level 29 mmol/L (21-32) Anion Gap 8 (6-14) Blood Urea Nitrogen 34 mg/dL (8-26) H Creatinine 0.8 mg/dL (0.7-1.3) Estimated GFR (Cockcroft-Gault) 93.7 BUN/Creatinine Ratio 43 (6-20) H Glucose Level 91 mg/dL (70-99) Calcium Level 8.6 mg/dL (8.5-10.1) Total Bilirubin 0.4 mg/dL (0.2-1.0) Aspartate Amino Transferase (AST) 17 U/L (15-37) Alanine Aminotransferase (ALT) 27 U/L (16-63) Alkaline Phosphatase 52 U/L (46-116) Total Protein 6.9 g/dL (6.4-8.2) Albumin 3.8 g/dL (3.4-5.0) Albumin/Globulin Ratio 1.2 (1.0-1.7) Valproic Acid Level 39 mcg/mL (50-100) L Valproic Acid Last Dose Date 08/31/2020 Valproic Acid Last Dose Time 2100 Current Medications: Meds: Laboratory Tests Test 09/01/20 15:20 White Blood Count 5.6 x10^3/uL Red Blood Count 4.36 x10^6/uL Hemoglobin 12.6 g/dL Hematocrit 39.1 % Mean Corpuscular Volume 90 fL Mean Corpuscular Hemoglobin 29 pg Mean Corpuscular Hemoglobin Concent 32 g/dL Red Cell Distribution Width 16.1 % Platelet Count 149 x10^3/uL Neutrophils (%) (Auto) 56 % Lymphocytes (%) (Auto) 23 % Monocytes (%) (Auto) 13 % Eosinophils (%) (Auto) 9 % Basophils (%) (Auto) 1 % Neutrophils # (Auto) 3.1 x10^3uL Lymphocytes # (Auto) 1.3 x10^3/uL Monocytes # (Auto) 0.7 x10^3/uL Eosinophils # (Auto) 0.5 x10^3/uL Basophils # (Auto) 0.0 x10^3/uL Sodium Level 147 mmol/L Potassium Level 4.7 mmol/L Chloride Level 110 mmol/L Carbon Dioxide Level 29 mmol/L Anion Gap 8 Blood Urea Nitrogen 34 mg/dL Creatinine 0.8 mg/dL Estimated GFR (Cockcroft-Gault) 93.7 BUN/Creatinine Ratio 43 Glucose Level 91 mg/dL Calcium Level 8.6 mg/dL Total Bilirubin 0.4 mg/dL Aspartate Amino Transf (AST/SGOT) 17 U/L Alanine Aminotransferase (ALT/SGPT) 27 U/L Alkaline Phosphatase 52 U/L Total Protein 6.9 g/dL Albumin 3.8 g/dL Albumin/Globulin Ratio 1.2 Valproic Acid (Depakene) Level 39 mcg/mL Valproic Acid Last Dose Date 08/31/2020 Valproic Acid Last Dose Time 2100 Current Medications Medications (Trade) Dose Ordered Sig/Abundio Route PRN Reason Start Time Stop Time Status Last Admin Dose Admin Neomycin/ Polymyxin/ Bacitracin (Triple Antibiotic Ointment) 1 pkt 1X ONCE TP 08/28/20 15:15 08/28/20 15:16 DC 08/28/20 15:14 Lorazepam (Ativan) 0.5 mg PRN BID PRN PO ANXIETY 08/28/20 16:00 08/28/20 16:06 Acetaminophen (Tylenol) 650 mg PRN Q6HRS PRN PO MILD PAIN / TEMP > 100.3'F 08/28/20 16:45 Multi-Ingredient Ointment (Analgesic [place]) 1 will PRN QID PRN TP 1ST CHOICE MUSCLE PAIN 08/28/20 16:45 Al Hydroxide/Mg Hydroxide (Mylanta Plus Xs) 15 ml PRN AFTMEALHC PRN PO DYSPEPSIA 08/28/20 16:45 UNV Magnesium Hydroxide (Milk Of Magnesia) 2,400 mg PRN QHS PRN PO CONSTIPATION 08/28/20 16:45 Aspirin (Aspirin Enteric Coated) 81 mg DAILYWBKFT PO 08/29/20 08:00 09/01/20 08:15 Atorvastatin Calcium (Lipitor) 10 mg QHS PO 08/28/20 21:00 09/01/20 20:10 Bisacodyl (Dulcolax Supp) 10 mg PRN DAILY PRN MT CONSTIPATION 08/28/20 16:15 Divalproex Sodium (Depakote Er) 500 mg QHS PO 08/28/20 21:00 09/01/20 16:54 DC 08/31/20 21:23 Loperamide HCl (Imodium) 2 mg PRN Q15MIN PRN PO DIARRHEA 08/28/20 16:15 Lorazepam (Ativan) 0.5 mg PRN BID PRN PO ANXIETY / AGITATION 08/28/20 16:15 Cancel Magnesium Hydroxide (Milk Of Magnesia) 2,400 mg PRN DAILY PRN PO CONSTIPATION 08/28/20 16:15 UNV Mirtazapine (Remeron) 15 mg QHS PO 08/28/20 21:00 09/01/20 20:10 Al Hydroxide/Mg Hydroxide (Mylanta Plus Xs) 15 ml PRN Q2HR PRN PO DYSPEPSIA 08/28/20 16:15 Pantoprazole Sodium (Protonix) 40 mg DAILY PO 08/29/20 09:00 09/01/20 05:33 Ondansetron HCl (Zofran Odt) 4 mg PRN Q6HRS PRN PO NAUSEA/VOMITING 08/28/20 16:15 Potassium Chloride (Klor-Con) 10 meq QODAY@0800 PO 08/29/20 08:00 08/31/20 08:17 Multivitamins/ Calcium (Thera-M Plus) 1 tab BID PO 08/28/20 21:00 09/01/20 20:10 Artificial Tears (Artificial Tears) 1 drop PRN Q15MIN PRN OU DRY EYE 08/28/20 16:15 Quetiapine Fumarate (SEROquel) 50 mg PRN DAILY PRN PO Agitation 08/28/20 16:15 08/28/20 22:48 Quetiapine Fumarate (SEROquel) 100 mg HS PO 08/28/20 21:00 09/01/20 20:10 Sertraline HCl (Zoloft) 100 mg 1700 PO 08/28/20 17:30 09/01/20 17:43 Acetaminophen (Tylenol) 650 mg PRN Q8HRS ONCE PO 08/28/20 16:15 08/28/20 16:16 UNV Acetaminophen (Tylenol) 650 mg BID PO 08/28/20 21:00 09/01/20 20:10 Diclofenac Sodium (Voltaren) 1 will Q8HRS TP 08/28/20 22:00 08/30/20 03:34 DC 08/29/20 12:12 Trazodone HCl (Desyrel) 50 mg PRN QHS PRN PO Insomnia 08/29/20 16:30 08/31/20 00:57 Olanzapine (ZyPREXA ZYDIS) 2.5 mg PRN Q2HRS PRN PO PSYCHOSIS 08/29/20 16:30 Diclofenac Sodium (Voltaren) 1 will PRN Q8HRS PRN TP 2ND CHOICE MUSCLE PAIN 08/30/20 03:30 Divalproex Sodium (Depakote Er) 750 mg QHS PO 09/01/20 21:00 09/01/20 21:00 Current Medications Medications (Trade) Dose Ordered Sig/Abundio Route PRN Reason Start Time Stop Time Status Last Admin Dose Admin Divalproex Sodium (Depakote Er) 750 mg QHS PO 09/01/20 21:00 09/01/20 21:00 I have reviewed the current psychotropics carefully including drug interactions. Risk benefit ratio favors no change other than as noted in my dictated progress note. Diagnosis: Problems: (1) Impulse control disorder, unspecified (2) Anxiety disorder, unspecified (3) Dementia, vascular, with depression (4) Dementia, vascular, with delusions (5) Dementia in Alzheimer's disease with depression (6) Dementia in Alzheimer's disease with delusions (7) Dementia of the Alzheimer's type with early onset with behavioral disturbance (8) Major neurocognitive disorder DUANE NINO MD Sep 01, 2020 22:12
[2020-09-01] MEDS: QUEtiapine 50 MG TABLET. PO PRN (22:19)
[2020-09-01] MEDS: traZODone 50 MG TABLET. PO PRN (22:19)
[2020-09-02] MEDS: LORazepam 0.5 MG TABLET PO PRN ×2 (00:46→13:29)
--- NOTE | 2020-09-02 03:16 | NUR ---
Patient has been confused through the shift, wandering and being very incoherent with speech. Patient was compliant with medications and had snacks too. He will sit intermittently before wandering some more between the hallways and the TV room. at one moment he interacted with one of the patients for 30mins and then wandered off again. After a couple of hours, patient was helped to his room and into bed. He stayed in bed for about 30mins before waking back up and was wandering the halls; tried to enter into the wrong room and was redirected by staff. Patient exhibited some anxiety, got verbally aggressive a few times with staff. Patient was provided prn medications for anxiety and agitation and was directed back to [facility] where he remained laying down. Will continue to monitor.
[2020-09-02 05:28] VITALS: BP 131/74
[2020-09-02] MEDS: ACETAMINOPHEN 325 MG TABLET PO SCH ×2 (09:00→21:47)
[2020-09-02] MEDS: ASPIRIN ENTERIC COATED 81 MG TABLET.DR. PO SCH (09:00)
[2020-09-02] MEDS: MULTIVITAMIN with MINERAL TABLET. PO SCH ×2 (09:00→21:47)
[2020-09-02] MEDS: PANTOPRAZOLE 40 MG TABLET. PO SCH (09:00)
[2020-09-02] MEDS: POTASSIUM CHLORIDE 10 MEQ TABLET.ER. PO SCH (09:00)
--- NOTE | 2020-09-02 09:19 | PDOC ---
Exam Note: Raman Note: This note is a late entry for 08/31/2020 covers elements not covered in my initial note. Subjective: The patient was seen individually in the evening of 08/31/2020 with Scott MONTEMAYOR, discussed and reviewed the chart. The patient slept 6-1/4 hours previous night. He remains confused. No changes behaviorally. CT head showed no acute changes but there are changes of senescence. There is cortical atrophy noted. He has been calm. Valproic acid level will be checked morning of 09/01. Review of Systems: No CV, , pulmonary, eye system symptoms on review. Reliab ility poor. Mental Status Exam: The patient is oriented to himself. Insight and judgment, recent and remote memory, attention and concentration is poor consistent with her diagnoses. Laboratory Data: Reviewed. Impression: Major neurocognitive disorder Alzheimer vascular with delusion, depression, and behavioral disturbance. Anxiety disorder unspecified. Impulse control disorder unspecified. Plan: Continue current psychotropics. Make further adjustments as clinically indicated. Trazodone was added for insomnia. Valproic acid level to be checked 09/01. We will check Depakote dosage thereafter. Continue trazodone. Assessment: Vital Signs/I&O: Vital Signs Date Time Temp Pulse Resp B/P (MAP) Pulse Ox O2 Delivery O2 Flow Rate FiO2 09/02/20 05:28 97.7 70 18 131/74 (93) 100 09/01/20 05:29 Room Air I & O 09/01/20 09/01/20 09/02/20 14:59 22:59 06:59 Intake Total 600 ml 480 ml Balance 600 ml 480 ml Labs: Laboratory Tests Test 09/01/20 15:20 White Blood Count 5.6 x10^3/uL (4.0-11.0) Red Blood Count 4.36 x10^6/uL (4.30-5.70) Hemoglobin 12.6 g/dL (13.0-17.5) L Hematocrit 39.1 % (39.0-53.0) Mean Corpuscular Volume 90 fL (79-100) Mean Corpuscular Hemoglobin 29 pg (25-35) Mean Corpuscular Hemoglobin Concent 32 g/dL (31-37) Red Cell Distribution Width 16.1 % (11.5-14.5) H Platelet Count 149 x10^3/uL (140-400) Neutrophils (%) (Auto) 56 % (31-73) Lymphocytes (%) (Auto) 23 % (24-48) L Monocytes (%) (Auto) 13 % (0-9) H Eosinophils (%) (Auto) 9 % (0-3) H Basophils (%) (Auto) 1 % (0-3) Neutrophils # (Auto) 3.1 x10^3uL (1.8-7.7) Lymphocytes # (Auto) 1.3 x10^3/uL (1.0-4.8) Monocytes # (Auto) 0.7 x10^3/uL (0.0-1.1) Eosinophils # (Auto) 0.5 x10^3/uL (0.0-0.7) Basophils # (Auto) 0.0 x10^3/uL (0.0-0.2) Sodium Level 147 mmol/L (136-145) H Potassium Level 4.7 mmol/L (3.5-5.1) Chloride Level 110 mmol/L (98-107) H Carbon Dioxide Level 29 mmol/L (21-32) Anion Gap 8 (6-14) Blood Urea Nitrogen 34 mg/dL (8-26) H Creatinine 0.8 mg/dL (0.7-1.3) Estimated GFR (Cockcroft-Gault) 93.7 BUN/Creatinine Ratio 43 (6-20) H Glucose Level 91 mg/dL (70-99) Calcium Level 8.6 mg/dL (8.5-10.1) Total Bilirubin 0.4 mg/dL (0.2-1.0) Aspartate Amino Transferase (AST) 17 U/L (15-37) Alanine Aminotransferase (ALT) 27 U/L (16-63) Alkaline Phosphatase 52 U/L (46-116) Total Protein 6.9 g/dL (6.4-8.2) Albumin 3.8 g/dL (3.4-5.0) Albumin/Globulin Ratio 1.2 (1.0-1.7) Valproic Acid Level 39 mcg/mL (50-100) L Valproic Acid Last Dose Date 08/31/2020 Valproic Acid Last Dose Time 2100 Current Medications: Meds: Laboratory Tests Test 09/01/20 15:20 White Blood Count 5.6 x10^3/uL Red Blood Count 4.36 x10^6/uL Hemoglobin 12.6 g/dL Hematocrit 39.1 % Mean Corpuscular Volume 90 fL Mean Corpuscular Hemoglobin 29 pg Mean Corpuscular Hemoglobin Concent 32 g/dL Red Cell Distribution Width 16.1 % Platelet Count 149 x10^3/uL Neutrophils (%) (Auto) 56 % Lymphocytes (%) (Auto) 23 % Monocytes (%) (Auto) 13 % Eosinophils (%) (Auto) 9 % Basophils (%) (Auto) 1 % Neutrophils # (Auto) 3.1 x10^3uL Lymphocytes # (Auto) 1.3 x10^3/uL Monocytes # (Auto) 0.7 x10^3/uL Eosinophils # (Auto) 0.5 x10^3/uL Basophils # (Auto) 0.0 x10^3/uL Sodium Level 147 mmol/L Potassium Level 4.7 mmol/L Chloride Level 110 mmol/L Carbon Dioxide Level 29 mmol/L Anion Gap 8 Blood Urea Nitrogen 34 mg/dL Creatinine 0.8 mg/dL Estimated GFR (Cockcroft-Gault) 93.7 BUN/Creatinine Ratio 43 Glucose Level 91 mg/dL Calcium Level 8.6 mg/dL Total Bilirubin 0.4 mg/dL Aspartate Amino Transf (AST/SGOT) 17 U/L Alanine Aminotransferase (ALT/SGPT) 27 U/L Alkaline Phosphatase 52 U/L Total Protein 6.9 g/dL Albumin 3.8 g/dL Albumin/Globulin Ratio 1.2 Valproic Acid (Depakene) Level 39 mcg/mL Valproic Acid Last Dose Date 08/31/2020 Valproic Acid Last Dose Time 2100 Current Medications Medications (Trade) Dose Ordered Sig/Abundio Route PRN Reason Start Time Stop Time Status Last Admin Dose Admin Neomycin/ Polymyxin/ Bacitracin (Triple Antibiotic Ointment) 1 pkt 1X ONCE TP 08/28/20 15:15 08/28/20 15:16 DC 08/28/20 15:14 Lorazepam (Ativan) 0.5 mg PRN BID PRN PO ANXIETY 08/28/20 16:00 09/02/20 00:46 Acetaminophen (Tylenol) 650 mg PRN Q6HRS PRN PO MILD PAIN / TEMP > 100.3'F 08/28/20 16:45 Multi-Ingredient Ointment (Analgesic [place]) 1 will PRN QID PRN TP 1ST CHOICE MUSCLE PAIN 08/28/20 16:45 Al Hydroxide/Mg Hydroxide (Mylanta Plus Xs) 15 ml PRN AFTMEALHC PRN PO DYSPEPSIA 08/28/20 16:45 UNV Magnesium Hydroxide (Milk Of Magnesia) 2,400 mg PRN QHS PRN PO CONSTIPATION 08/28/20 16:45 Aspirin (Aspirin Enteric Coated) 81 mg DAILYWBKFT PO 08/29/20 08:00 09/02/20 09:00 Atorvastatin Calcium (Lipitor) 10 mg QHS PO 08/28/20 21:00 09/01/20 20:10 Bisacodyl (Dulcolax Supp) [address] CONSTIPATION 08/28/20 16:15 Divalproex Sodium (Depakote Er) 500 mg QHS PO 08/28/20 21:00 09/01/20 16:54 DC 08/31/20 21:23 Loperamide HCl (Imodium) 2 mg PRN Q15MIN PRN PO DIARRHEA 08/28/20 16:15 Lorazepam (Ativan) 0.5 mg PRN BID PRN PO ANXIETY / AGITATION 08/28/20 16:15 Cancel Magnesium Hydroxide (Milk Of Magnesia) 2,400 mg PRN DAILY PRN PO CONSTIPATION 08/28/20 16:15 UNV Mirtazapine (Remeron) 15 mg QHS PO 08/28/20 21:00 09/01/20 20:10 Al Hydroxide/Mg Hydroxide (Mylanta Plus Xs) 15 ml PRN Q2HR PRN PO DYSPEPSIA 08/28/20 16:15 Pantoprazole Sodium (Protonix) 40 mg DAILY PO 08/29/20 09:00 09/02/20 09:00 Ondansetron HCl (Zofran Odt) 4 mg PRN Q6HRS PRN PO NAUSEA/VOMITING 08/28/20 16:15 Potassium Chloride (Klor-Con) 10 meq QODAY@0800 PO 08/29/20 08:00 09/02/20 09:00 Multivitamins/ Calcium (Thera-M Plus) 1 tab BID PO 08/28/20 21:00 09/02/20 09:00 Artificial Tears (Artificial Tears) 1 drop PRN Q15MIN PRN OU DRY EYE 08/28/20 16:15 Quetiapine Fumarate (SEROquel) 50 mg PRN DAILY PRN PO Agitation 08/28/20 16:15 09/01/20 22:19 Quetiapine Fumarate (SEROquel) 100 mg HS PO 08/28/20 21:00 09/01/20 20:10 Sertraline HCl (Zoloft) 100 mg 1700 PO 08/28/20 17:30 09/01/20 17:43 Acetaminophen (Tylenol) 650 mg PRN Q8HRS ONCE PO 08/28/20 16:15 08/28/20 16:16 UNV Acetaminophen (Tylenol) 650 mg BID PO 08/28/20 21:00 09/02/20 09:00 Diclofenac Sodium (Voltaren) 1 will Q8HRS TP 08/28/20 22:00 08/30/20 03:34 DC 08/29/20 12:12 Trazodone HCl (Desyrel) 50 mg PRN QHS PRN PO Insomnia 08/29/20 16:30 09/01/20 22:19 Olanzapine (ZyPREXA ZYDIS) 2.5 mg PRN Q2HRS PRN PO PSYCHOSIS 08/29/20 16:30 Diclofenac Sodium (Voltaren) 1 will PRN Q8HRS PRN TP 2ND CHOICE MUSCLE PAIN 08/30/20 03:30 Divalproex Sodium (Depakote Er) 750 mg QHS PO 09/01/20 21:00 09/01/20 21:00 Current Medications Medications (Trade) Dose Ordered Sig/Abundio Route PRN Reason Start Time Stop Time Status Last Admin Dose Admin Divalproex Sodium (Depakote Er) 750 mg QHS PO 09/01/20 21:00 09/01/20 21:00 I have reviewed the current psychotropics carefully including drug interactions. Risk benefit ratio favors no change other than as noted in my dictated progress note. Diagnosis: Problems: (1) Impulse control disorder, unspecified (2) Anxiety disorder, unspecified (3) Dementia, vascular, with depression (4) Dementia, vascular, with delusions (5) Dementia in Alzheimer's disease with depression (6) Dementia in Alzheimer's disease with delusions (7) Dementia of the Alzheimer's type with early onset with behavioral disturbance (8) Major neurocognitive disorder DUANE NINO MD Sep 02, 2020 09:19
[2020-09-02 16:22] VITALS: BP 112/68
--- NOTE | 2020-09-02 16:28 | NUR ---
Nursing note: Pt in dining room at time of AM med pass and assessment. He was pleasant, compliant with meds crushed in yogurt and cooperative with assessment. He denies having any pain/concerns. Pt became agitated and aggressive after lunch regarding his glasses. Pt was unable to be redirected. PRN administered with good effect. He is currently sitting quietly in the day room. Will continue to monitor.
[2020-09-02] MEDS: SERTRALINE 100 MG TABLET. PO SCH (17:30)
[2020-09-02] MEDS: QUEtiapine 100 MG TABLET. PO SCH (21:47)
[2020-09-02] MEDS: MIRTAZAPINE 15 MG TABLET PO SCH (21:47)
[2020-09-02] MEDS: DIVALPROEX ER 250 MG TAB.ER.24H. PO SCH (21:47)
[2020-09-02] MEDS: ATORVASTATIN CALCIUM 10 MG TABLET. PO SCH (21:47)
--- NOTE | 2020-09-02 22:08 | PDOC ---
Exam Note: Raman Note: Please also refer to the separate dictated note~for this date of service dictated separately.~Patient seen individually. Discussed the patient with Nursing staff reviewed the chart.~Reviewed interim history and current functioning. Reviewed vital signs,~Labs/ Radiology~and current medications noted below. Continue current treatment with the changes noted in the dictated addendum note Assessment: Vital Signs/I&O: Vital Signs Date Time Temp Pulse Resp B/P (MAP) Pulse Ox O2 Delivery O2 Flow Rate FiO2 09/02/20 16:22 98.0 89 20 112/68 (83) 98 Room Air I & O 09/01/20 09/01/20 09/02/20 15:00 23:00 07:00 Intake Total 600 ml 480 ml Balance 600 ml 480 ml Current Medications: Meds: Current Medications Medications (Trade) Dose Ordered Sig/Abundio Route PRN Reason Start Time Stop Time Status Last Admin Dose Admin Neomycin/ Polymyxin/ Bacitracin (Triple Antibiotic Ointment) 1 pkt 1X ONCE TP 08/28/20 15:15 08/28/20 15:16 DC 08/28/20 15:14 Lorazepam (Ativan) 0.5 mg PRN BID PRN PO ANXIETY 08/28/20 16:00 09/02/20 13:29 Acetaminophen (Tylenol) 650 mg PRN Q6HRS PRN PO MILD PAIN / TEMP > 100.3'F 08/28/20 16:45 Multi-Ingredient Ointment (Analgesic [place]) 1 will PRN QID PRN TP 1ST CHOICE MUSCLE PAIN 08/28/20 16:45 Al Hydroxide/Mg Hydroxide (Mylanta Plus Xs) 15 ml PRN AFTMEALHC PRN PO DYSPEPSIA 08/28/20 16:45 UNV Magnesium Hydroxide (Milk Of Magnesia) 2,400 mg PRN QHS PRN PO CONSTIPATION 08/28/20 16:45 Aspirin (Aspirin Enteric Coated) 81 mg DAILYWBKFT PO 08/29/20 08:00 09/02/20 09:00 Atorvastatin Calcium (Lipitor) 10 mg QHS PO 08/28/20 21:00 09/02/20 21:47 Bisacodyl (Dulcolax Supp) 10 mg PRN DAILY PRN [place] CONSTIPATION 08/28/20 16:15 Divalproex Sodium (Depakote Er) 500 mg QHS PO 08/28/20 21:00 09/01/20 16:54 DC 08/31/20 21:23 Loperamide HCl (Imodium) 2 mg PRN Q15MIN PRN PO DIARRHEA 08/28/20 16:15 Lorazepam (Ativan) 0.5 mg PRN BID PRN PO ANXIETY / AGITATION 08/28/20 16:15 Cancel Magnesium Hydroxide (Milk Of Magnesia) 2,400 mg PRN DAILY PRN PO CONSTIPATION 08/28/20 16:15 UNV Mirtazapine (Remeron) 15 mg QHS PO 08/28/20 21:00 09/02/20 21:47 Al Hydroxide/Mg Hydroxide (Mylanta Plus Xs) 15 ml PRN Q2HR PRN PO DYSPEPSIA 08/28/20 16:15 Pantoprazole Sodium (Protonix) 40 mg DAILY PO 08/29/20 09:00 09/02/20 09:00 Ondansetron HCl (Zofran Odt) 4 mg PRN Q6HRS PRN PO NAUSEA/VOMITING 08/28/20 16:15 Potassium Chloride (Klor-Con) 10 meq QODAY@0800 PO 08/29/20 08:00 09/02/20 09:00 Multivitamins/ Calcium (Thera-M Plus) 1 tab BID PO 08/28/20 21:00 09/02/20 21:47 Artificial Tears (Artificial Tears) 1 drop PRN Q15MIN PRN OU DRY EYE 08/28/20 16:15 Quetiapine Fumarate (SEROquel) 50 mg PRN DAILY PRN PO Agitation 08/28/20 16:15 09/01/20 22:19 Quetiapine Fumarate (SEROquel) 100 mg HS PO 08/28/20 21:00 09/02/20 21:47 Sertraline HCl (Zoloft) 100 mg 1700 PO 08/28/20 17:30 09/02/20 17:30 Acetaminophen (Tylenol) 650 mg PRN Q8HRS ONCE PO 08/28/20 16:15 08/28/20 16:16 UNV Acetaminophen (Tylenol) 650 mg BID PO 08/28/20 21:00 09/02/20 21:47 Diclofenac Sodium (Voltaren) 1 will Q8HRS TP 08/28/20 22:00 08/30/20 03:34 DC 08/29/20 12:12 Trazodone HCl (Desyrel) 50 mg PRN QHS PRN PO Insomnia 08/29/20 16:30 09/01/20 22:19 Olanzapine (ZyPREXA ZYDIS) 2.5 mg PRN Q2HRS PRN PO PSYCHOSIS 08/29/20 16:30 Diclofenac Sodium (Voltaren) 1 will PRN Q8HRS PRN TP 2ND CHOICE MUSCLE PAIN 08/30/20 03:30 Divalproex Sodium (Depakote Er) 750 mg QHS PO 09/01/20 21:00 09/02/20 21:47 I have reviewed the current psychotropics carefully including drug interactions. Risk benefit ratio favors no change other than as noted in my dictated progress note. Diagnosis: Problems: (1) Impulse control disorder, unspecified (2) Anxiety disorder, unspecified (3) Dementia, vascular, with depression (4) Dementia, vascular, with delusions (5) Dementia in Alzheimer's disease with depression (6) Dementia in Alzheimer's disease with delusions (7) Dementia of the Alzheimer's type with early onset with behavioral disturbance (8) Major neurocognitive disorder DUANE NINO MD Sep 02, 2020 22:08
--- NOTE | 2020-09-03 03:05 | NUR ---
Nursing Note The patient was withdrawn to self this shift. The patient displayed minimal interactions with staff or peers this shift. The patient was able to answer name only during his assessment. The patient took his medication whole. The patient is currently sleeping in his room.
[2020-09-03 05:50] VITALS: BP 128/73
[2020-09-03] MEDS: ASPIRIN ENTERIC COATED 81 MG TABLET.DR. PO SCH (08:34)
[2020-09-03] MEDS: MULTIVITAMIN with MINERAL TABLET. PO SCH ×2 (08:34→21:02)
[2020-09-03] MEDS: PANTOPRAZOLE 40 MG TABLET. PO SCH (08:35)
[2020-09-03] MEDS: ACETAMINOPHEN 325 MG TABLET PO SCH ×2 (08:35→21:02)
--- NOTE | 2020-09-03 09:27 | PDOC ---
Exam Note: Raman Note: This note is a late entry for 09/01/2020 covers elements not covered in my initial note. Subjective: The patient was seen individually in the evening of 09/01/2020 with Alysa MONTEMAYOR, discussed and reviewed the chart. The patient slept 5 hours previous night. He has been anxious, restless. He needs prompting to be able to swallow his meds but takes them whole. Valproic acid level is 29 on Depakote ER 500 mg h.s. We will increase to 750 mg h.s. Check CBC, CMP, valproic acid level in 3 days. Review of Systems: No CV, , pulmonary, eye system symptoms on review. Reliability poor. Mental Status Exam: The patient is oriented to himself. Insight and judgment, recent and remote memory, attention and concentration is poor consistent with her diagnoses. Laboratory Data: Reviewed. Impression: Major neurocognitive disorder Alzheimer vascular with delusion, depression, and behavioral disturbance. Anxiety disorder unspecified. Impulse control disorder unspecified. Plan: Continue rest of the psychotropics unchanged. Valproic acid level is 29 on Depakote ER 500 mg h.s. We will increase to 750 mg h.s. Check CBC, CMP, valproic acid level in 3 days. Assessment: Vital Signs/I&O: Vital Signs Date Time Temp Pulse Resp B/P (MAP) Pulse Ox O2 Delivery O2 Flow Rate FiO2 09/03/20 05:50 97.3 83 16 128/73 (91) 98 09/02/20 16:22 Room Air I & O 09/02/20 09/02/20 09/03/20 14:59 22:59 06:59 Intake Total 480 ml 240 ml 100 ml Balance 480 ml 240 ml 100 ml Current Medications: Meds: Current Medications Medications (Trade) Dose Ordered Sig/Abudnio Route PRN Reason Start Time Stop Time Status Last Admin Dose Admin Neomycin/ Polymyxin/ Bacitracin (Triple Antibiotic Ointment) 1 pkt 1X ONCE TP 08/28/20 15:15 08/28/20 15:16 DC 08/28/20 15:14 Lorazepam (Ativan) 0.5 mg PRN BID PRN PO ANXIETY 08/28/20 16:00 09/02/20 13:29 Acetaminophen (Tylenol) 650 mg PRN Q6HRS PRN PO MILD PAIN / TEMP > 100.3'F 08/28/20 16:45 Multi-Ingredient Ointment (Analgesic [place]) 1 will PRN QID PRN TP 1ST CHOICE MUSCLE PAIN 08/28/20 16:45 Al Hydroxide/Mg Hydroxide (Mylanta Plus Xs) 15 ml PRN AFTMEALHC PRN PO DYSPEPSIA 08/28/20 16:45 UNV Magnesium Hydroxide (Milk Of Magnesia) 2,400 mg PRN QHS PRN PO 1ST CHOICE CONSTIPATION 08/28/20 16:45 Aspirin (Aspirin Enteric Coated) 81 mg DAILYWBKFT PO 08/29/20 08:00 09/03/20 08:34 Atorvastatin Calcium (Lipitor) 10 mg QHS PO 08/28/20 21:00 09/02/20 21:47 Bisacodyl (Dulcolax Supp) 10 mg PRN DAILY PRN [place] 2ND CHOICE CONSTIPATION 08/28/20 16:15 Divalproex Sodium (Depakote Er) 500 mg QHS PO 08/28/20 21:00 09/01/20 16:54 DC 08/31/20 21:23 Loperamide HCl (Imodium) 2 mg PRN Q15MIN PRN PO DIARRHEA 08/28/20 16:15 Lorazepam (Ativan) 0.5 mg PRN BID PRN PO ANXIETY / AGITATION 08/28/20 16:15 Cancel Magnesium Hydroxide (Milk Of Magnesia) 2,400 mg PRN DAILY PRN PO CONSTIPATION 08/28/20 16:15 UNV Mirtazapine (Remeron) 15 mg QHS PO 08/28/20 21:00 09/02/20 21:47 Al Hydroxide/Mg Hydroxide (Mylanta Plus Xs) 15 ml PRN Q2HR PRN PO DYSPEPSIA 08/28/20 16:15 Pantoprazole Sodium (Protonix) 40 mg DAILY PO 08/29/20 09:00 09/03/20 08:35 Ondansetron HCl (Zofran Odt) 4 mg PRN Q6HRS PRN PO NAUSEA/VOMITING 08/28/20 16:15 Potassium Chloride (Klor-Con) 10 meq QODAY@0800 PO 08/29/20 08:00 09/02/20 09:00 Multivitamins/ Calcium (Thera-M Plus) 1 tab BID PO 08/28/20 21:00 09/03/20 08:34 Artificial Tears (Artificial Tears) 1 drop PRN Q15MIN PRN OU DRY EYE 08/28/20 16:15 Quetiapine Fumarate (SEROquel) 50 mg PRN DAILY PRN PO Agitation 08/28/20 16:15 09/01/20 22:19 Quetiapine Fumarate (SEROquel) 100 mg HS PO 08/28/20 21:00 09/02/20 21:47 Sertraline HCl (Zoloft) 100 mg 1700 PO 08/28/20 17:30 09/02/20 17:30 Acetaminophen (Tylenol) 650 mg PRN Q8HRS ONCE PO 08/28/20 16:15 08/28/20 16:16 UNV Acetaminophen (Tylenol) 650 mg BID PO 08/28/20 21:00 09/03/20 08:35 Diclofenac Sodium (Voltaren) 1 will Q8HRS TP 08/28/20 22:00 08/30/20 03:34 DC 08/29/20 12:12 Trazodone HCl (Desyrel) 50 mg PRN QHS PRN PO Insomnia 08/29/20 16:30 09/01/20 22:19 Olanzapine (ZyPREXA ZYDIS) 2.5 mg PRN Q2HRS PRN PO PSYCHOSIS 08/29/20 16:30 Diclofenac Sodium (Voltaren) 1 will PRN Q8HRS PRN TP 2ND CHOICE MUSCLE PAIN 08/30/20 03:30 Divalproex Sodium (Depakote Er) 750 mg QHS PO 09/01/20 21:00 09/02/20 21:47 I have reviewed the current psychotropics carefully including drug interactions. Risk benefit ratio favors no change other than as noted in my dictated progress note. Diagnosis: Problems: (1) Impulse control disorder, unspecified (2) Anxiety disorder, unspecified (3) Dementia, vascular, with depression (4) Dementia, vascular, with delusions (5) Dementia in Alzheimer's disease with depression (6) Dementia in Alzheimer's disease with delusions (7) Dementia of the Alzheimer's type with early onset with behavioral disturbance (8) Major neurocognitive disorder DUANE NINO MD Sep 03, 2020 09:27
--- NOTE | 2020-09-03 09:53 | PDOC ---
Exam Note: Raman Note: This note is a late entry for 09/02/2020 covers elements not covered in my initial note. Subjective: The patient was seen individually in the evening of 09/02/2020 with Marifer MONTEMAYOR, discussed and reviewed the chart. The patient slept 5-1/4 hours previous night. He takes his meds crushed in yogurt. After lunch he was agitated, regarding not finding his glasses. He was agitated post staff wanting to take his watch for safe keeping. His vision is poor and the watch has an audio function which orients him and they left it on him for now. He has received p.r.n. x1. Review of Systems: No CV, , pulmonary, eye system symptoms on review. Reliability poor. Mental Status Exam: The patient is oriented to himself. Insight and judgment, recent and remote memory, attention and concentration is poor consistent with her diagnoses. Laboratory Data: Reviewed. Impression: Major neurocognitive disorder Alzheimer vascular with delusion, depression, and behavioral disturbance. Anxiety disorder unspecified. Impulse control disorder unspecified. Plan: Continue current psychotropics. We have increased the patients Depakote to reach therapeutic level. We will follow labs level. Assessment: Vital Signs/I&O: Vital Signs Date Time Temp Pulse Resp B/P (MAP) Pulse Ox O2 Delivery O2 Flow Rate FiO2 09/03/20 05:50 97.3 83 16 128/73 (91) 98 09/02/20 16:22 Room Air I & O 09/02/20 09/02/20 09/03/20 14:59 22:59 06:59 Intake Total 480 ml 240 ml 100 ml Balance 480 ml 240 ml 100 ml Current Medications: Meds: Current Medications Medications (Trade) Dose Ordered Sig/Abundio Route PRN Reason Start Time Stop Time Status Last Admin Dose Admin Neomycin/ Polymyxin/ Bacitracin (Triple Antibiotic Ointment) 1 pkt 1X ONCE TP 08/28/20 15:15 08/28/20 15:16 DC 08/28/20 15:14 Lorazepam (Ativan) 0.5 mg PRN BID PRN PO ANXIETY 08/28/20 16:00 09/02/20 13:29 Acetaminophen (Tylenol) 650 mg PRN Q6HRS PRN PO MILD PAIN / TEMP > 100.3'F 08/28/20 16:45 Multi-Ingredient Ointment (Analgesic [place]) 1 will PRN QID PRN TP 1ST CHOICE MUSCLE PAIN 08/28/20 16:45 Al Hydroxide/Mg Hydroxide (Mylanta Plus Xs) 15 ml PRN AFTMEALHC PRN PO DYSPEPSIA 08/28/20 16:45 UNV Magnesium Hydroxide (Milk Of Magnesia) 2,400 mg PRN QHS PRN PO 1ST CHOICE CONSTIPATION 08/28/20 16:45 Aspirin (Aspirin Enteric Coated) 81 mg DAILYWBKFT PO 08/29/20 08:00 09/03/20 08:34 Atorvastatin Calcium (Lipitor) 10 mg QHS PO 08/28/20 21:00 09/02/20 21:47 Bisacodyl (Dulcolax Supp) 10 mg PRN DAILY PRN [place] 2ND CHOICE CONSTIPATION 08/28/20 16:15 Divalproex Sodium (Depakote Er) 500 mg QHS PO 08/28/20 21:00 09/01/20 16:54 DC 08/31/20 21:23 Loperamide HCl (Imodium) 2 mg PRN Q15MIN PRN PO DIARRHEA 08/28/20 16:15 Lorazepam (Ativan) 0.5 mg PRN BID PRN PO ANXIETY / AGITATION 08/28/20 16:15 Cancel Magnesium Hydroxide (Milk Of Magnesia) 2,400 mg PRN DAILY PRN PO CONSTIPATION 08/28/20 16:15 UNV Mirtazapine (Remeron) 15 mg QHS PO 08/28/20 21:00 09/02/20 21:47 Al Hydroxide/Mg Hydroxide (Mylanta Plus Xs) 15 ml PRN Q2HR PRN PO DYSPEPSIA 08/28/20 16:15 Pantoprazole Sodium (Protonix) 40 mg DAILY PO 08/29/20 09:00 09/03/20 08:35 Ondansetron HCl (Zofran Odt) 4 mg PRN Q6HRS PRN PO NAUSEA/VOMITING 08/28/20 16:15 Potassium Chloride (Klor-Con) 10 meq QODAY@0800 PO 08/29/20 08:00 09/02/20 09:00 Multivitamins/ Calcium (Thera-M Plus) 1 tab BID PO 08/28/20 21:00 09/03/20 08:34 Artificial Tears (Artificial Tears) 1 drop PRN Q15MIN PRN OU DRY EYE 08/28/20 16:15 Quetiapine Fumarate (SEROquel) 50 mg PRN DAILY PRN PO Agitation 08/28/20 16:15 09/01/20 22:19 Quetiapine Fumarate (SEROquel) 100 mg HS PO 08/28/20 21:00 09/02/20 21:47 Sertraline HCl (Zoloft) 100 mg 1700 PO 08/28/20 17:30 09/02/20 17:30 Acetaminophen (Tylenol) 650 mg PRN Q8HRS ONCE PO 08/28/20 16:15 08/28/20 16:16 UNV Acetaminophen (Tylenol) 650 mg BID PO 08/28/20 21:00 09/03/20 08:35 Diclofenac Sodium (Voltaren) 1 will Q8HRS TP 08/28/20 22:00 08/30/20 03:34 DC 08/29/20 12:12 Trazodone HCl (Desyrel) 50 mg PRN QHS PRN PO Insomnia 08/29/20 16:30 09/01/20 22:19 Olanzapine (ZyPREXA ZYDIS) 2.5 mg PRN Q2HRS PRN PO PSYCHOSIS 08/29/20 16:30 Diclofenac Sodium (Voltaren) 1 will PRN Q8HRS PRN TP 2ND CHOICE MUSCLE PAIN 08/30/20 03:30 Divalproex Sodium (Depakote Er) 750 mg QHS PO 09/01/20 21:00 09/02/20 21:47 I have reviewed the current psychotropics carefully including drug interactions. Risk benefit ratio favors no change other than as noted in my dictated progress note. Diagnosis: Problems: (1) Impulse control disorder, unspecified (2) Anxiety disorder, unspecified (3) Dementia, vascular, with depression (4) Dementia, vascular, with delusions (5) Dementia in Alzheimer's disease with depression (6) Dementia in Alzheimer's disease with delusions (7) Dementia of the Alzheimer's type with early onset with behavioral disturbance (8) Major neurocognitive disorder DUANE NINO MD Sep 03, 2020 09:53
--- NOTE | 2020-09-03 13:42 | NUR ---
Nursing note: Pt in dining room at time of AM med pass and assessment. He is pleasant, med compliant and cooperative. Pt denies having any pain/concerns. He has been sitting in the hallway for most of the shift and occasionally falls asleep in the chairs. Will continue to monitor.
[2020-09-03 16:23] VITALS: BP 101/63
[2020-09-03] MEDS: SERTRALINE 100 MG TABLET. PO SCH (17:37)
[2020-09-03] MEDS: MIRTAZAPINE 15 MG TABLET PO SCH (21:02)
[2020-09-03] MEDS: ATORVASTATIN CALCIUM 10 MG TABLET. PO SCH (21:02)
[2020-09-03] MEDS: DIVALPROEX ER 250 MG TAB.ER.24H. PO SCH (21:02)
[2020-09-03] MEDS: QUEtiapine 100 MG TABLET. PO SCH (21:02)
[2020-09-03] MEDS: LORazepam 0.5 MG TABLET PO PRN (21:08)
[2020-09-03] MEDS: traZODone 50 MG TABLET. PO PRN (21:08)
--- NOTE | 2020-09-03 22:21 | PDOC ---
Exam Note: Raman Note: Please also refer to the separate dictated note~for this date of service dictated separately.~Patient seen individually. Discussed the patient with Nursing staff reviewed the chart.~Reviewed interim history and current functioning. Reviewed vital signs,~Labs/ Radiology~and current medications noted below. Continue current treatment with the changes noted in the dictated addendum note Assessment: Vital Signs/I&O: Vital Signs Date Time Temp Pulse Resp B/P (MAP) Pulse Ox O2 Delivery O2 Flow Rate FiO2 09/03/20 16:23 97.9 86 20 101/63 (76) 99 09/02/20 16:22 Room Air I & O 09/02/20 09/02/20 09/03/20 14:59 22:59 06:59 Intake Total 480 ml 240 ml 100 ml Balance 480 ml 240 ml 100 ml Current Medications: Meds: Current Medications Medications (Trade) Dose Ordered Sig/Abundio Route PRN Reason Start Time Stop Time Status Last Admin Dose Admin Neomycin/ Polymyxin/ Bacitracin (Triple Antibiotic Ointment) 1 pkt 1X ONCE TP 08/28/20 15:15 08/28/20 15:16 DC 08/28/20 15:14 Lorazepam (Ativan) 0.5 mg PRN BID PRN PO ANXIETY 08/28/20 16:00 09/03/20 21:08 Acetaminophen (Tylenol) 650 mg PRN Q6HRS PRN PO MILD PAIN / TEMP > 100.3'F 08/28/20 16:45 Multi-Ingredient Ointment (Analgesic [place]) 1 will PRN QID PRN TP 1ST CHOICE MUSCLE PAIN 08/28/20 16:45 Al Hydroxide/Mg Hydroxide (Mylanta Plus Xs) 15 ml PRN AFTMEALHC PRN PO DYSPEPSIA 08/28/20 16:45 UNV Magnesium Hydroxide (Milk Of Magnesia) 2,400 mg PRN QHS PRN PO 1ST CHOICE CONSTIPATION 08/28/20 16:45 Aspirin (Aspirin Enteric Coated) 81 mg DAILYWBKFT PO 08/29/20 08:00 09/03/20 08:34 Atorvastatin Calcium (Lipitor) 10 mg QHS PO 08/28/20 21:00 09/03/20 21:02 Bisacodyl (Dulcolax Supp) 10 mg PRN DAILY PRN [place] 2ND CHOICE CONSTIPATION 08/28/20 16:15 Divalproex Sodium (Depakote Er) 500 mg QHS PO 08/28/20 21:00 09/01/20 16:54 DC 08/31/20 21:23 Loperamide HCl (Imodium) 2 mg PRN Q15MIN PRN PO DIARRHEA 08/28/20 16:15 Lorazepam (Ativan) 0.5 mg PRN BID PRN PO ANXIETY / AGITATION 08/28/20 16:15 Cancel Magnesium Hydroxide (Milk Of Magnesia) 2,400 mg PRN DAILY PRN PO CONSTIPATION 08/28/20 16:15 UNV Mirtazapine (Remeron) 15 mg QHS PO 08/28/20 21:00 09/03/20 21:02 Al Hydroxide/Mg Hydroxide (Mylanta Plus Xs) 15 ml PRN Q2HR PRN PO DYSPEPSIA 08/28/20 16:15 Pantoprazole Sodium (Protonix) 40 mg DAILY PO 08/29/20 09:00 09/03/20 08:35 Ondansetron HCl (Zofran Odt) 4 mg PRN Q6HRS PRN PO NAUSEA/VOMITING 08/28/20 16:15 Potassium Chloride (Klor-Con) 10 meq QODAY@0800 PO 08/29/20 08:00 09/02/20 09:00 Multivitamins/ Calcium (Thera-M Plus) 1 tab BID PO 08/28/20 21:00 09/03/20 21:02 Artificial Tears (Artificial Tears) 1 drop PRN Q15MIN PRN OU DRY EYE 08/28/20 16:15 Quetiapine Fumarate (SEROquel) 50 mg PRN DAILY PRN PO Agitation 08/28/20 16:15 09/01/20 22:19 Quetiapine Fumarate (SEROquel) 100 mg HS PO 08/28/20 21:00 09/03/20 21:02 Sertraline HCl (Zoloft) 100 mg 1700 PO 08/28/20 17:30 09/03/20 17:37 Acetaminophen (Tylenol) 650 mg PRN Q8HRS ONCE PO 08/28/20 16:15 08/28/20 16:16 UNV Acetaminophen (Tylenol) 650 mg BID PO 08/28/20 21:00 09/03/20 21:02 Diclofenac Sodium (Voltaren) 1 will Q8HRS TP 08/28/20 22:00 08/30/20 03:34 DC 08/29/20 12:12 Trazodone HCl (Desyrel) 50 mg PRN QHS PRN PO Insomnia 08/29/20 16:30 09/03/20 21:08 Olanzapine (ZyPREXA ZYDIS) 2.5 mg PRN Q2HRS PRN PO PSYCHOSIS 08/29/20 16:30 Diclofenac Sodium (Voltaren) 1 will PRN Q8HRS PRN TP 2ND CHOICE MUSCLE PAIN 08/30/20 03:30 Divalproex Sodium (Depakote Er) 750 mg QHS PO 09/01/20 21:00 09/03/20 21:02 I have reviewed the current psychotropics carefully including drug interactions. Risk benefit ratio favors no change other than as noted in my dictated progress note. Diagnosis: Problems: (1) Impulse control disorder, unspecified (2) Anxiety disorder, unspecified (3) Dementia, vascular, with depression (4) Dementia, vascular, with delusions (5) Dementia in Alzheimer's disease with depression (6) Dementia in Alzheimer's disease with delusions (7) Dementia of the Alzheimer's type with early onset with behavioral disturbance (8) Major neurocognitive disorder DUANE NINO MD Sep 03, 2020 22:21
[2020-09-04 05:54] VITALS: BP 125/70
[2020-09-04 07:16] LABS: BASO % 0 % (0-3); EOS # 0.7 x10^3/uL (0.0-0.7); EOS % 9 % (0-3); HEMOGLOBIN 12.6 g/dL (13.0-17.5); LYMPH # 0.9 x10^3/uL (1.0-4.8); LYMPH % 12 % (24-48); MEAN CORPUSCULAR HEMOGLOBIN 29 pg (25-35); MEAN CORPUSCULAR HGB CONC 33 g/dL (31-37); MEAN CORPUSCULAR VOLUME 89 fL (79-100); MONO # 0.9 x10^3/uL (0.0-1.1); MONO % 12 % (0-9); NEUT # 5.1 x10^3uL (1.8-7.7); NEUT % 67 % (31-73); PLATELET COUNT 122 x10^3/uL (140-400); RED BLOOD COUNT 4.28 x10^6/uL (4.30-5.70); RED CELL DISTRIBUTION WIDTH 16.2 % (11.5-14.5); WHITE BLOOD COUNT 7.6 x10^3/uL (4.0-11.0)
[2020-09-04 07:25] LABS: ALBUMIN 3.6 g/dL (3.4-5.0); ALBUMIN/GLOBULIN RATIO 1.2 (1.0-1.7); ALK PHOS 50 U/L (46-116); ALT (SGPT) 26 U/L (16-63); ANION GAP 7 (6-14); AST (SGOT) 18 U/L (15-37); BLOOD UREA NITROGEN 36 mg/dL (8-26); BUN/CREATININE RATIO 45 (6-20); CALCIUM 8.6 mg/dL (8.5-10.1); CARBON DIOXIDE 31 mmol/L (21-32); CHLORIDE 112 mmol/L (98-107); CREATININE 0.8 mg/dL (0.7-1.3); GFR 93.7; GLUCOSE 88 mg/dL (70-99); POTASSIUM 3.9 mmol/L (3.5-5.1); SODIUM 150 mmol/L (136-145); TOTAL BILIRUBIN 0.5 mg/dL (0.2-1.0); TOTAL PROTEIN 6.7 g/dL (6.4-8.2)
[2020-09-04 07:28] LABS: VAL ACID 50 mcg/mL (50-100)
[2020-09-04] MEDS: PANTOPRAZOLE 40 MG TABLET. PO SCH (08:21)
[2020-09-04] MEDS: ACETAMINOPHEN 325 MG TABLET PO SCH ×2 (08:22→20:37)
[2020-09-04] MEDS: MULTIVITAMIN with MINERAL TABLET. PO SCH ×2 (08:22→20:36)
[2020-09-04] MEDS: ASPIRIN ENTERIC COATED 81 MG TABLET.DR. PO SCH (08:22)
[2020-09-04] MEDS: POTASSIUM CHLORIDE 10 MEQ TABLET.ER. PO SCH (08:22)
[2020-09-04] MEDS: LORazepam 0.5 MG TABLET PO PRN (09:38)
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
[2020-09-04 15:43] VITALS: BP 127/70
[2020-09-04] MEDS: SERTRALINE 100 MG TABLET. PO SCH (17:25)
[2020-09-04] MEDS: ATORVASTATIN CALCIUM 10 MG TABLET. PO SCH (20:36)
[2020-09-04] MEDS: QUEtiapine 100 MG TABLET. PO SCH (20:36)
[2020-09-04] MEDS: MIRTAZAPINE 15 MG TABLET PO SCH (20:37)
[2020-09-04] MEDS: DIVALPROEX ER 250 MG TAB.ER.24H. PO SCH (20:37)
[2020-09-04] MEDS: PRAZOSIN 1 MG CAPSULE. PO SCH (21:30)
--- NOTE | 2020-09-04 22:05 | PDOC ---
Exam Note: Raman Note: Please also refer to the separate dictated note~for this date of service dictated separately.~Patient seen individually. Discussed the patient with Nursing staff reviewed the chart.~Reviewed interim history and current functioning. Reviewed vital signs,~Labs/ Radiology~and current medications noted below. Continue current treatment with the changes noted in the dictated addendum note Assessment: Vital Signs/I&O: Vital Signs Date Time Temp Pulse Resp B/P (MAP) Pulse Ox O2 Delivery O2 Flow Rate FiO2 09/04/20 21:30 79 127/70 09/04/20 15:43 97.1 22 93 09/02/20 16:22 Room Air I & O 09/03/20 09/03/20 09/04/20 14:59 22:59 06:59 Intake Total 600 ml 580 ml Balance 600 ml 580 ml Labs: Laboratory Tests Test 09/04/20 06:54 White Blood Count 7.6 x10^3/uL (4.0-11.0) Red Blood Count 4.28 x10^6/uL (4.30-5.70) L Hemoglobin 12.6 g/dL (13.0-17.5) L Hematocrit 38.0 % (39.0-53.0) L Mean Corpuscular Volume 89 fL (79-100) Mean Corpuscular Hemoglobin 29 pg (25-35) Mean Corpuscular Hemoglobin Concent 33 g/dL (31-37) Red Cell Distribution Width 16.2 % (11.5-14.5) H Platelet Count 122 x10^3/uL (140-400) L Neutrophils (%) (Auto) 67 % (31-73) Lymphocytes (%) (Auto) 12 % (24-48) L Monocytes (%) (Auto) 12 % (0-9) H Eosinophils (%) (Auto) 9 % (0-3) H Basophils (%) (Auto) 0 % (0-3) Neutrophils # (Auto) 5.1 x10^3uL (1.8-7.7) Lymphocytes # (Auto) 0.9 x10^3/uL (1.0-4.8) L Monocytes # (Auto) 0.9 x10^3/uL (0.0-1.1) Eosinophils # (Auto) 0.7 x10^3/uL (0.0-0.7) Basophils # (Auto) 0.0 x10^3/uL (0.0-0.2) Sodium Level 150 mmol/L (136-145) H Potassium Level 3.9 mmol/L (3.5-5.1) Chloride Level 112 mmol/L (98-107) H Carbon Dioxide Level 31 mmol/L (21-32) Anion Gap 7 (6-14) Blood Urea Nitrogen 36 mg/dL (8-26) H Creatinine 0.8 mg/dL (0.7-1.3) Estimated GFR (Cockcroft-Gault) 93.7 BUN/Creatinine Ratio 45 (6-20) H Glucose Level 88 mg/dL (70-99) Calcium Level 8.6 mg/dL (8.5-10.1) Total Bilirubin 0.5 mg/dL (0.2-1.0) Aspartate Amino Transferase (AST) 18 U/L (15-37) Alanine Aminotransferase (ALT) 26 U/L (16-63) Alkaline Phosphatase 50 U/L (46-116) Total Protein 6.7 g/dL (6.4-8.2) Albumin 3.6 g/dL (3.4-5.0) Albumin/Globulin Ratio 1.2 (1.0-1.7) Valproic Acid Level 50 mcg/mL (50-100) Valproic Acid Last Dose Date 09/03/20 Valproic Acid Last Dose Time 2100 Current Medications: Meds: Laboratory Tests Test 09/04/20 06:54 White Blood Count 7.6 x10^3/uL Red Blood Count 4.28 x10^6/uL Hemoglobin 12.6 g/dL Hematocrit 38.0 % Mean Corpuscular Volume 89 fL Mean Corpuscular Hemoglobin 29 pg Mean Corpuscular Hemoglobin Concent 33 g/dL Red Cell Distribution Width 16.2 % Platelet Count 122 x10^3/uL Neutrophils (%) (Auto) 67 % Lymphocytes (%) (Auto) 12 % Monocytes (%) (Auto) 12 % Eosinophils (%) (Auto) 9 % Basophils (%) (Auto) 0 % Neutrophils # (Auto) 5.1 x10^3uL Lymphocytes # (Auto) 0.9 x10^3/uL Monocytes # (Auto) 0.9 x10^3/uL Eosinophils # (Auto) 0.7 x10^3/uL Basophils # (Auto) 0.0 x10^3/uL Sodium Level 150 mmol/L Potassium Level 3.9 mmol/L Chloride Level 112 mmol/L Carbon Dioxide Level 31 mmol/L Anion Gap 7 Blood Urea Nitrogen 36 mg/dL Creatinine 0.8 mg/dL Estimated GFR (Cockcroft-Gault) 93.7 BUN/Creatinine Ratio 45 Glucose Level 88 mg/dL Calcium Level 8.6 mg/dL Total Bilirubin 0.5 mg/dL Aspartate Amino Transf (AST/SGOT) 18 U/L Alanine Aminotransferase (ALT/SGPT) 26 U/L Alkaline Phosphatase 50 U/L Total Protein 6.7 g/dL Albumin 3.6 g/dL Albumin/Globulin Ratio 1.2 Valproic Acid (Depakene) Level 50 mcg/mL Valproic Acid Last Dose Date 09/03/20 Valproic Acid Last Dose Time 2100 Current Medications Medications (Trade) Dose Ordered Sig/Abundio Route PRN Reason Start Time Stop Time Status Last Admin Dose Admin Neomycin/ Polymyxin/ Bacitracin (Triple Antibiotic Ointment) 1 pkt 1X ONCE TP 08/28/20 15:15 08/28/20 15:16 DC 08/28/20 15:14 Lorazepam (Ativan) 0.5 mg PRN BID PRN PO ANXIETY 08/28/20 16:00 09/04/20 09:38 Acetaminophen (Tylenol) 650 mg PRN Q6HRS PRN PO MILD PAIN / TEMP > 100.3'F 08/28/20 16:45 Multi-Ingredient Ointment (Analgesic [place]) 1 will PRN QID PRN TP 1ST CHOICE MUSCLE PAIN 08/28/20 16:45 Al Hydroxide/Mg Hydroxide (Mylanta Plus Xs) 15 ml PRN AFTMEALHC PRN PO DYSPEPSIA 08/28/20 16:45 UNV Magnesium Hydroxide (Milk Of Magnesia) 2,400 mg PRN QHS PRN PO 1ST CHOICE CONSTIPATION 08/28/20 16:45 Aspirin (Aspirin Enteric Coated) 81 mg DAILYWBKFT PO 08/29/20 08:00 09/04/20 08:22 Atorvastatin Calcium (Lipitor) 10 mg QHS PO 08/28/20 21:00 09/04/20 20:36 Bisacodyl (Dulcolax Supp) 10 mg PRN DAILY PRN [place] 2ND CHOICE CONSTIPATION 08/28/20 16:15 Divalproex Sodium (Depakote Er) 500 mg QHS PO 08/28/20 21:00 09/01/20 16:54 DC 08/31/20 21:23 Loperamide HCl (Imodium) 2 mg PRN Q15MIN PRN PO DIARRHEA 08/28/20 16:15 Lorazepam (Ativan) 0.5 mg PRN BID PRN PO ANXIETY / AGITATION 08/28/20 16:15 Cancel Magnesium Hydroxide (Milk Of Magnesia) 2,400 mg PRN DAILY PRN PO CONSTIPATION 08/28/20 16:15 UNV Mirtazapine (Remeron) 15 mg QHS PO 08/28/20 21:00 09/04/20 20:37 Al Hydroxide/Mg Hydroxide (Mylanta Plus Xs) 15 ml PRN Q2HR PRN PO DYSPEPSIA 08/28/20 16:15 Pantoprazole Sodium (Protonix) 40 mg DAILY PO 08/29/20 09:00 09/04/20 08:21 Ondansetron HCl (Zofran Odt) 4 mg PRN Q6HRS PRN PO NAUSEA/VOMITING 08/28/20 16:15 Potassium Chloride (Klor-Con) 10 meq QODAY@0800 PO 08/29/20 08:00 09/04/20 08:22 Multivitamins/ Calcium (Thera-M Plus) 1 tab BID PO 08/28/20 21:00 09/04/20 20:36 Artificial Tears (Artificial Tears) 1 drop PRN Q15MIN PRN OU DRY EYE 08/28/20 16:15 Quetiapine Fumarate (SEROquel) 50 mg PRN DAILY PRN PO Agitation 08/28/20 16:15 09/01/20 22:19 Quetiapine Fumarate (SEROquel) 100 mg HS PO 08/28/20 21:00 09/04/20 20:36 Sertraline HCl (Zoloft) 100 mg 1700 PO 08/28/20 17:30 09/04/20 17:25 Acetaminophen (Tylenol) 650 mg PRN Q8HRS ONCE PO 08/28/20 16:15 08/28/20 16:16 UNV Acetaminophen (Tylenol) 650 mg BID PO 08/28/20 21:00 09/04/20 20:37 Diclofenac Sodium (Voltaren) 1 will Q8HRS TP 08/28/20 22:00 08/30/20 03:34 DC 08/29/20 12:12 Trazodone HCl (Desyrel) 50 mg PRN QHS PRN PO Insomnia 08/29/20 16:30 09/03/20 21:08 Olanzapine (ZyPREXA ZYDIS) 2.5 mg PRN Q2HRS PRN PO PSYCHOSIS 08/29/20 16:30 09/04/20 11:35 Diclofenac Sodium (Voltaren) 1 will PRN Q8HRS PRN TP 2ND CHOICE MUSCLE PAIN 08/30/20 03:30 Divalproex Sodium (Depakote Er) 750 mg QHS PO 09/01/20 21:00 09/04/20 20:37 Quetiapine Fumarate (SEROquel) 25 mg 0900,1700 PO 09/05/20 09:00 Prazosin HCl (Minipress) 1 mg QHS PO 09/04/20 21:00 09/04/20 21:30 Current Medications Medications (Trade) Dose Ordered Sig/Abundio Route PRN Reason Start Time Stop Time Status Last Admin Dose Admin Prazosin HCl (Minipress) 1 mg QHS PO 09/04/20 21:00 09/04/20 21:30 I have reviewed the current psychotropics carefully including drug interactions. Risk benefit ratio favors no change other than as noted in my dictated progress note. Diagnosis: Problems: (1) Impulse control disorder, unspecified (2) Anxiety disorder, unspecified (3) Dementia, vascular, with depression (4) Dementia, vascular, with delusions (5) Dementia in Alzheimer's disease with depression (6) Dementia in Alzheimer's disease with delusions (7) Dementia of the Alzheimer's type with early onset with behavioral disturbance (8) Major neurocognitive disorder DUANE NINO MD Sep 04, 2020 22:05
[2020-09-05 06:15] VITALS: BP 125/77
[2020-09-05] MEDS: ASPIRIN ENTERIC COATED 81 MG TABLET.DR. PO SCH (08:15)
[2020-09-05] MEDS: MULTIVITAMIN with MINERAL TABLET. PO SCH ×2 (08:15→20:44)
[2020-09-05] MEDS: PANTOPRAZOLE 40 MG TABLET. PO SCH (08:16)
[2020-09-05] MEDS: QUEtiapine 25 MG TABLET. PO SCH ×2 (08:16→17:40)
[2020-09-05] MEDS: ACETAMINOPHEN 325 MG TABLET PO SCH ×2 (08:17→20:44)
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
--- NOTE | 2020-09-05 09:42 | CONS ---
DATE OF CONSULTATION: 08/28/2020 REASON FOR CONSULTATION: Medical management. HISTORY OF PRESENT ILLNESS: The patient is a 79-year-old male patient, resident at [facility] in [place], [place], by his primary care physician on account of worsening confusion with increased agitation, being physically aggressive towards staff, swinging his cane at staff. He was inconsistent with taking his medication, wandering physically aggressive. Medication adjustment has been made by his primary care physician without much improvement. His behavior has been deemed dangerous, unmanageable and having failed outpatient psychiatric intervention, and therefore, he was referred to [facility] for inpatient psychiatric stabilization. The patient has a major neurocognitive disorder, vascular possibly Alzheimer with delusion, depression, behavioral disturbances along with anxiety disorder and impulse control disorder. The patient is extremely demented and does not really give any useful information. Medically, the patient is known to have macular degeneration and is legally blind, sensorineural deafness, hypertension, osteoarthritis, osteoporosis, benign prostatic hypertrophy, neuropathy, and macular degeneration. ALLERGIES: He has no known drug allergies. MEDICATIONS: He is currently on following medications: Divalproex sodium 750 mg at bedtime, diclofenac sodium 1 g every 8 hours, olanzapine 2.5 mg every 2 hours, trazodone 50 mg at bedtime, Protonix 40 mg daily, potassium chloride 10 mEq every other day, aspirin 81 mg once a day, acetaminophen 650 mg twice a day, quetiapine fumarate 100 mg at bedtime, multivitamin 1 tablet twice a day, mirtazapine 15 mg at bedtime, atorvastatin 10 mg at bedtime, sertraline 100 mg at bedtime, magnesium hydroxide for milk of magnesia 30 mL p.o. daily p.r.n. for constipation, acetaminophen 650 mg every 6 hours, quetiapine fumarate 50 mg daily, artificial tears 1 drop every 15 minutes, ondansetron 4 mg every 6 hours, Mylanta 15 mL, loperamide 2 mg, bisacodyl 10 mg daily, lorazepam 0.5 mg twice a day. FAMILY HISTORY: Noncontributory. SOCIAL HISTORY: He is a resident [facility] in [place]. He does not smoke, drink alcohol or use recreational drugs. PHYSICAL EXAMINATION: GENERAL: When I examined him, he looked well and was clearly in no apparent respiratory distress. No pallor, jaundice, cyanosis, or thyromegaly. No jugular venous distention. No lower limb edema. VITAL SIGNS: His heart rate was 79, blood pressure is 127/70, temperature 97.1, respiratory rate was 22 and oxygen saturation was 93%. HEAD, EYES, EARS, NOSE, AND THROAT: Normocephalic and atraumatic. NECK: Supple. HEART: Normal first and second heart sounds. No gallop, rub or murmur. CHEST: Clear to auscultation. No crepitation or rhonchi. ABDOMEN: Distended, soft, nontender. NEUROLOGIC: He is legally blind, but otherwise all his other cranial nerves intact. He moves extremities without difficulty, ambulates without assistance or assistive devices. His intake and output was incompletely recorded. LABORATORY DATA: His lab work today showed a white cell count 7600, hemoglobin 12.6, hematocrit 38, MCV 89 and platelet count of 122,000. His chemistry showed sodium is trending upward with a sodium 150, potassium 3.9, chloride 112, bicarbonate 31, anion gap of 7, BUN 36, creatinine 0.8. Estimated GFR was 94 mL per minute. His glucose was 48, calcium was 8.6. Total bilirubin, AST, ALT, alkaline phosphatase were normal. Total protein 6.7, albumin 3.6. His vitamin B12 was 1132. A 25-hydroxy vitamin D was normal at 40. Total T4 and total T3 were normal, and his TSH was 2.827. ASSESSMENT: All in all, this patient seems to be medically stable. His vital signs are all within normal range. His lab works obviously showed that he is dehydrated with marked water deficit. He is not on any diuretics, and I recommended the patient should get more water. Continue with all his current medications and repeat his lab works to see the effectiveness of that policy, otherwise he needs to be started on D5W. Thank you, Dr. Davis, for allowing me to participate in the care of this patient. JIL/KEREN/ROSELINE FRANKLIN: Jase TID: [id number]
[2020-09-05 15:56] VITALS: BP 104/54
[2020-09-05] MEDS: SERTRALINE 100 MG TABLET. PO SCH (17:40)
--- NOTE | 2020-09-05 18:30 | NUR ---
Patient has been calm, compliant, and pleasantly confused throughout this shift. He has spent time wandering in the [place] and sitting in the day room. CNAs reported he was being aggressive at breakfast, but he had been easily re-directed. Will continue to monitor and report to oncoming shift.
[2020-09-05] MEDS: DIVALPROEX ER 250 MG TAB.ER.24H. PO SCH (20:45)
[2020-09-05] MEDS: ATORVASTATIN CALCIUM 10 MG TABLET. PO SCH (20:45)
[2020-09-05] MEDS: PRAZOSIN 1 MG CAPSULE. PO SCH (20:45)
[2020-09-05] MEDS: MIRTAZAPINE 15 MG TABLET PO SCH (20:45)
[2020-09-05] MEDS: QUEtiapine 100 MG TABLET. PO SCH (20:45)
--- NOTE | 2020-09-05 22:36 | PDOC ---
Exam Note: Raman Note: Please also refer to the separate dictated note~for this date of service dictated separately.~Patient seen individually. Discussed the patient with Nursing staff reviewed the chart.~Reviewed interim history and current functioning. Reviewed vital signs,~Labs/ Radiology~and current medications noted below. Continue current treatment with the changes noted in the dictated addendum note Assessment: Vital Signs/I&O: Vital Signs Date Time Temp Pulse Resp B/P (MAP) Pulse Ox O2 Delivery O2 Flow Rate FiO2 09/05/20 20:45 71 104/54 09/05/20 15:56 98.0 20 98 09/02/20 16:22 Room Air I & O 09/04/20 09/04/20 09/05/20 15:00 23:00 07:00 Intake Total 840 ml 240 ml 120 ml Balance 840 ml 240 ml 120 ml Current Medications: Meds: Current Medications Medications (Trade) Dose Ordered Sig/Abundio Route PRN Reason Start Time Stop Time Status Last Admin Dose Admin Neomycin/ Polymyxin/ Bacitracin (Triple Antibiotic Ointment) 1 pkt 1X ONCE TP 08/28/20 15:15 08/28/20 15:16 DC 08/28/20 15:14 Lorazepam (Ativan) 0.5 mg PRN BID PRN PO ANXIETY 08/28/20 16:00 09/04/20 09:38 Acetaminophen (Tylenol) 650 mg PRN Q6HRS PRN PO MILD PAIN / TEMP > 100.3'F 08/28/20 16:45 Multi-Ingredient Ointment (Analgesic [place]) 1 will PRN QID PRN TP 1ST CHOICE MUSCLE PAIN 08/28/20 16:45 Al Hydroxide/Mg Hydroxide (Mylanta Plus Xs) 15 ml PRN AFTMEALHC PRN PO DYSPEPSIA 08/28/20 16:45 UNV Magnesium Hydroxide (Milk Of Magnesia) 2,400 mg PRN QHS PRN PO 1ST CHOICE CONSTIPATION 08/28/20 16:45 Aspirin (Aspirin Enteric Coated) 81 mg DAILYWBKFT PO 08/29/20 08:00 09/05/20 08:15 Atorvastatin Calcium (Lipitor) 10 mg QHS PO 08/28/20 21:00 09/05/20 20:45 Bisacodyl (Dulcolax Supp) 10 mg PRN DAILY PRN CO 2ND CHOICE CONSTIPATION 08/28/20 16:15 Divalproex Sodium (Depakote Er) 500 mg QHS PO 08/28/20 21:00 09/01/20 16:54 DC 08/31/20 21:23 Loperamide HCl (Imodium) 2 mg PRN Q15MIN PRN PO DIARRHEA 08/28/20 16:15 Lorazepam (Ativan) 0.5 mg PRN BID PRN PO ANXIETY / AGITATION 08/28/20 16:15 Cancel Magnesium Hydroxide (Milk Of Magnesia) 2,400 mg PRN DAILY PRN PO CONSTIPATION 08/28/20 16:15 UNV Mirtazapine (Remeron) 15 mg QHS PO 08/28/20 21:00 09/05/20 20:45 Al Hydroxide/Mg Hydroxide (Mylanta Plus Xs) 15 ml PRN Q2HR PRN PO DYSPEPSIA 08/28/20 16:15 Pantoprazole Sodium (Protonix) 40 mg DAILY PO 08/29/20 09:00 09/05/20 08:16 Ondansetron HCl (Zofran Odt) 4 mg PRN Q6HRS PRN PO NAUSEA/VOMITING 08/28/20 16:15 Potassium Chloride (Klor-Con) 10 meq QODAY@0800 PO 08/29/20 08:00 09/04/20 08:22 Multivitamins/ Calcium (Thera-M Plus) 1 tab BID PO 08/28/20 21:00 09/05/20 20:44 Artificial Tears (Artificial Tears) 1 drop PRN Q15MIN PRN OU DRY EYE 08/28/20 16:15 Quetiapine Fumarate (SEROquel) 50 mg PRN DAILY PRN PO Agitation 08/28/20 16:15 09/01/20 22:19 Quetiapine Fumarate (SEROquel) 100 mg HS PO 08/28/20 21:00 09/05/20 20:45 Sertraline HCl (Zoloft) 100 mg 1700 PO 08/28/20 17:30 09/05/20 17:40 Acetaminophen (Tylenol) 650 mg PRN Q8HRS ONCE PO 08/28/20 16:15 08/28/20 16:16 UNV Acetaminophen (Tylenol) 650 mg BID PO 08/28/20 21:00 09/05/20 20:44 Diclofenac Sodium (Voltaren) 1 will Q8HRS TP 08/28/20 22:00 08/30/20 03:34 DC 08/29/20 12:12 Trazodone HCl (Desyrel) 50 mg PRN QHS PRN PO Insomnia 08/29/20 16:30 09/03/20 21:08 Olanzapine (ZyPREXA ZYDIS) 2.5 mg PRN Q2HRS PRN PO PSYCHOSIS 08/29/20 16:30 09/04/20 11:35 Diclofenac Sodium (Voltaren) 1 will PRN Q8HRS PRN TP 2ND CHOICE MUSCLE PAIN 08/30/20 03:30 Divalproex Sodium (Depakote Er) 750 mg QHS PO 09/01/20 21:00 09/05/20 20:45 Quetiapine Fumarate (SEROquel) 25 mg 0900,1700 PO 09/05/20 09:00 09/05/20 17:40 Prazosin HCl (Minipress) 1 mg QHS PO 09/04/20 21:00 09/05/20 20:45 Current Medications Medications (Trade) Dose Ordered Sig/Abundio Route PRN Reason Start Time Stop Time Status Last Admin Dose Admin Quetiapine Fumarate (SEROquel) 25 mg 0900,1700 PO 09/05/20 09:00 09/05/20 17:40 I have reviewed the current psychotropics carefully including drug interactions. Risk benefit ratio favors no change other than as noted in my dictated progress note. Diagnosis: Problems: (1) Impulse control disorder, unspecified (2) Anxiety disorder, unspecified (3) Dementia, vascular, with depression (4) Dementia, vascular, with delusions (5) Dementia in Alzheimer's disease with depression (6) Dementia in Alzheimer's disease with delusions (7) Dementia of the Alzheimer's type with early onset with behavioral disturbance (8) Major neurocognitive disorder (9) PTSD (post-traumatic stress disorder) DUANE NINO MD Sep 05, 2020 22:36
--- NOTE | 2020-09-06 01:00 | NUR ---
PRN meds given for sleep and anxiety. Pt is awake looking for his watch and hat, wandering in the [place] and removed his clothes. Last evening pt sat in the day room and was social with peers. He took meds whole without difficulty. He was cooperative with shower and has had no aggressive behaviors tonight.
[2020-09-06] MEDS: traZODone 50 MG TABLET. PO PRN ×2 (01:05→23:01)
--- NOTE | 2020-09-06 02:41 | NUR ---
Pt has been sleeping since shortly after taking PRN medications.
[2020-09-06 05:58] VITALS: BP 154/92
[2020-09-06] MEDS: MULTIVITAMIN with MINERAL TABLET. PO SCH ×2 (08:26→21:55)
[2020-09-06] MEDS: ASPIRIN ENTERIC COATED 81 MG TABLET.DR. PO SCH (08:26)
[2020-09-06] MEDS: PANTOPRAZOLE 40 MG TABLET. PO SCH (08:26)
[2020-09-06] MEDS: POTASSIUM CHLORIDE 10 MEQ TABLET.ER. PO SCH (08:26)
[2020-09-06] MEDS: QUEtiapine 25 MG TABLET. PO SCH ×2 (08:26→17:17)
[2020-09-06] MEDS: ACETAMINOPHEN 325 MG TABLET PO SCH ×2 (08:27→21:54)
--- NOTE | 2020-09-06 12:31 | NUR ---
WEEKLY ACTIVITY THERAPY NOTE Date of Admission: 08/28/2020 Date of AT Assessment: 08/30/20 Precipitating behaviors that initiated intake and admission: increased agitation, physically aggressive towards staff, swings cane at staff, inconsistent with taking meds, wandering Goal aimed: to increase stimulation Initial Goal: Pt. will participate in at lease five Activity Therapy groups or individual sessions before discharge. Weekly progress towards goal: achieved, 07/21 Group participation level: 4 min, 2 full Weekly highlights: watched cow videos and answered one trivia , shouted words to song Thursday, sentence starter questions Thursday, snack during Thursday activity, accepted a map Thursday Behaviors observed: intrusive with female peers, redirection and prompting needed, touching female peers back Thursday Plan: repeat goal Beneficial adaptations: redirection, prompting
--- NOTE | 2020-09-06 13:21 | TX PLAN ---
Interdisciplinary Tx Plan Admission Information Aug 28, 2020 at 15:45 Legal Status (on Admission): Voluntary, DPOA DPOA/Guardian Name: Heidy [place]- Contact Other Contact Name: Caryl Other Contact Verified Code Status: DNR Allergies: Coded Allergies: No Known Drug Allergies (Unverified , 08/28/20) Estimated Length of Stay: 14 Diagnoses Primary Diagnosis: Major neurocognitive d/o vascular Alz with delusions, depression, BD; Anxiety d/o unspecified; Impulse Control d/o Reasons for Admission: Aggressive, Agitated, Sig. Change Appetite, Sig. Change Sleep, Angry, Combative, Confusion/Disoriented, Poor impulse control Problem in Patient's Words: As noted above. Additional Admission Comments: Per intake record, increased agitation, physically aggressive towards staff, swings cane at staff, inconsistent with taking medications, wandering. Problems Active Problems: Agitation Physically aggressive Medication resistant Confused/memory impaired Wandering Inactive Problems: Medications crushed Slept 7 hours last night Pt Strengths/Limitations Ability for [place]: Poor Cognitive Functioning/Ability: Poor Communication Skills/Ability: Fair Financial Resources: Fair Insight/Judgement: Poor Intellectual Ability: Fair Physical Health: Fair Social Skills: Fair Stability in Family: Good Verbal Skills: Fair Discharge Criteria Discharge Criteria: Adequate arrangements @DC, Improved behavior, Improved mood/thought Preliminary Discharge Plan Preliminary DC Plan: Memory Care Other Arrangements: [facility], memory care Special Precautions Special Precautions: Agitation/Assault Fall Risk: High Initial D/C Plan Eric will return to [facility] once stable Identified Discharge Needs: Out patient psychiatry if available, restorative therapy program, activites to occupy time, allow adequate time for Eric to process and respond. Currently Utilized Resources Currently Utilized Resources/P: [facility]CP [facility], out patient mental health clinic Referrals Community Resources: [facility], out patient mental health clinic Identified Problems/Hx/Goals Objectives/Short-Term Goals Short Term Goals: Control abnormal behavior, Dec. Aggression, Dec. Outbursts, Medication Stabilization, Monitor Med Effects Short Term Goals in Patient's: Per POA, for Eric to be at peace, be able to sleep at night, and have adequate meal intake. Interventions/Frequency Staff Interventions/Frequency&: Nursing to provide routine safety checks, medication administration, and adl support. Psychiatry to se three times weekly. SW to see twice weekly. SW and recreational therapy activities as Eric allows. 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 Social: Eric enjoys fly fishing, hunting, and walking with his . Education: Eric graduated high school and attended some college. Community Follow-up PCP Out patient psychiatry thru [place] Community Provider/Family Inpu: Heidy () and Erna (daughter) participated in team meeting via phone on this date. 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 Eric slept poorly last night, waking up around 1am searching for things and disrobing. Nursing staff administered a prn medication. Eric has been initiated on prazosin 1mg at hs as he continues to have short periods of agitation directed towards peers and staff. He tends to be intrusive with female peers at times.Eric attended six group activities this past week with minimal engagement. He is having right hip pain reported as longstanding from . Tylenol is scheduled for comfort. Physician will be consulted for possible re- xray of hip. Heidy and Erna participated in team meeting via phone. Tentative d/c middle to late next week. MARYBEL MARQUEZ Sep 06, 2020 13:21
--- NOTE | 2020-09-06 13:31 | NUR ---
treatment team meeting held today, Heidy and Erna participated via phone. Eric continues to have brief periods of agitation and was initiated on prazosin. His VPA is 50. Eric average 80% of meal intakes and 5.7 hours of sleep at night. He slept poorly last night and was provided a prn medication for sleep which was effective. Eric tends to be intrusive with female peers but has been in the day room for six group activities this past week. SW provided verbal update to Caryl at [facility] and faxed current notes, medication list, and labs for her review. Tentative d/c mid-late next week.
[2020-09-06] MEDS: SERTRALINE 100 MG TABLET. PO SCH (17:17)
[2020-09-06 21:00] VITALS: BP 154/92
[2020-09-06] MEDS: PRAZOSIN 1 MG CAPSULE. PO SCH (21:55)
[2020-09-06] MEDS: QUEtiapine 100 MG TABLET. PO SCH (21:55)
[2020-09-06] MEDS: DIVALPROEX ER 250 MG TAB.ER.24H. PO SCH (21:55)
[2020-09-06] MEDS: MIRTAZAPINE 15 MG TABLET PO SCH (21:56)
[2020-09-06] MEDS: ATORVASTATIN CALCIUM 10 MG TABLET. PO SCH (21:56)
--- NOTE | 2020-09-06 22:16 | PDOC ---
Exam Note: Raman Note: Please also refer to the separate dictated note~for this date of service dictated separately.~Patient seen individually. Discussed the patient with Nursing staff reviewed the chart.~Reviewed interim history and current functioning. Reviewed vital signs,~Labs/ Radiology~and current medications noted below. Continue current treatment with the changes noted in the dictated addendum note Assessment: Vital Signs/I&O: Vital Signs Date Time Temp Pulse Resp B/P (MAP) Pulse Ox O2 Delivery O2 Flow Rate FiO2 09/06/20 21:55 95 154/92 09/06/20 05:58 97.3 20 98 09/02/20 16:22 Room Air I & O 09/05/20 09/05/20 09/06/20 15:00 23:00 07:00 Intake Total 480 ml 360 ml 360 ml Balance 480 ml 360 ml 360 ml Current Medications: Meds: Current Medications Medications (Trade) Dose Ordered Sig/Abundio Route PRN Reason Start Time Stop Time Status Last Admin Dose Admin Neomycin/ Polymyxin/ Bacitracin (Triple Antibiotic Ointment) 1 pkt 1X ONCE TP 08/28/20 15:15 08/28/20 15:16 DC 08/28/20 15:14 Lorazepam (Ativan) 0.5 mg PRN BID PRN PO ANXIETY 08/28/20 16:00 09/04/20 09:38 Acetaminophen (Tylenol) 650 mg PRN Q6HRS PRN PO MILD PAIN / TEMP > 100.3'F 08/28/20 16:45 Multi-Ingredient Ointment (Analgesic [place]) 1 will PRN QID PRN TP 1ST CHOICE MUSCLE PAIN 08/28/20 16:45 Al Hydroxide/Mg Hydroxide (Mylanta Plus Xs) 15 ml PRN AFTMEALHC PRN PO DYSPEPSIA 08/28/20 16:45 UNV Magnesium Hydroxide (Milk Of Magnesia) 2,400 mg PRN QHS PRN PO 1ST CHOICE CONSTIPATION 08/28/20 16:45 Aspirin (Aspirin Enteric Coated) 81 mg DAILYWBKFT PO 08/29/20 08:00 09/06/20 08:26 Atorvastatin Calcium (Lipitor) 10 mg QHS PO 08/28/20 21:00 09/06/20 21:56 Bisacodyl (Dulcolax Supp) 10 mg PRN DAILY PRN ID 2ND CHOICE CONSTIPATION 08/28/20 16:15 Divalproex Sodium (Depakote Er) 500 mg QHS PO 08/28/20 21:00 09/01/20 16:54 DC 08/31/20 21:23 Loperamide HCl (Imodium) 2 mg PRN Q15MIN PRN PO DIARRHEA 08/28/20 16:15 Lorazepam (Ativan) 0.5 mg PRN BID PRN PO ANXIETY / AGITATION 08/28/20 16:15 Cancel Magnesium Hydroxide (Milk Of Magnesia) 2,400 mg PRN DAILY PRN PO CONSTIPATION 08/28/20 16:15 UNV Mirtazapine (Remeron) 15 mg QHS PO 08/28/20 21:00 09/06/20 21:56 Al Hydroxide/Mg Hydroxide (Mylanta Plus Xs) 15 ml PRN Q2HR PRN PO DYSPEPSIA 08/28/20 16:15 Pantoprazole Sodium (Protonix) 40 mg DAILY PO 08/29/20 09:00 09/06/20 08:26 Ondansetron HCl (Zofran Odt) 4 mg PRN Q6HRS PRN PO NAUSEA/VOMITING 08/28/20 16:15 Potassium Chloride (Klor-Con) 10 meq QODAY@0800 PO 08/29/20 08:00 09/06/20 08:26 Multivitamins/ Calcium (Thera-M Plus) 1 tab BID PO 08/28/20 21:00 09/06/20 21:55 Artificial Tears (Artificial Tears) 1 drop PRN Q15MIN PRN OU DRY EYE 08/28/20 16:15 Quetiapine Fumarate (SEROquel) 50 mg PRN DAILY PRN PO Agitation 08/28/20 16:15 09/01/20 22:19 Quetiapine Fumarate (SEROquel) 100 mg HS PO 08/28/20 21:00 09/06/20 21:55 Sertraline HCl (Zoloft) 100 mg 1700 PO 08/28/20 17:30 09/06/20 17:17 Acetaminophen (Tylenol) 650 mg PRN Q8HRS ONCE PO 08/28/20 16:15 08/28/20 16:16 UNV Acetaminophen (Tylenol) 650 mg BID PO 08/28/20 21:00 09/06/20 21:54 Diclofenac Sodium (Voltaren) 1 will Q8HRS TP 08/28/20 22:00 08/30/20 03:34 DC 08/29/20 12:12 Trazodone HCl (Desyrel) 50 mg PRN QHS PRN PO Insomnia 08/29/20 16:30 09/06/20 01:05 Olanzapine (ZyPREXA ZYDIS) 2.5 mg PRN Q2HRS PRN PO PSYCHOSIS 08/29/20 16:30 09/06/20 09:24 Diclofenac Sodium (Voltaren) 1 will PRN Q8HRS PRN TP 2ND CHOICE MUSCLE PAIN 08/30/20 03:30 Divalproex Sodium (Depakote Er) 750 mg QHS PO 09/01/20 21:00 09/06/20 21:55 Quetiapine Fumarate (SEROquel) 25 mg 0900,1700 PO 09/05/20 09:00 09/06/20 17:17 Prazosin HCl (Minipress) 1 mg QHS PO 09/04/20 21:00 09/06/20 21:55 I have reviewed the current psychotropics carefully including drug interactions. Risk benefit ratio favors no change other than as noted in my dictated progress note. Diagnosis: Problems: (1) Impulse control disorder, unspecified (2) Anxiety disorder, unspecified (3) Dementia, vascular, with depression (4) Dementia, vascular, with delusions (5) Dementia in Alzheimer's disease with depression (6) Dementia in Alzheimer's disease with delusions (7) Dementia of the Alzheimer's type with early onset with behavioral disturbance (8) Major neurocognitive disorder (9) PTSD (post-traumatic stress disorder) DUANE NINO MD Sep 06, 2020 22:16
[2020-09-06] MEDS: LORazepam 0.5 MG TABLET PO PRN (23:01)
--- NOTE | 2020-09-06 23:21 | NUR ---
Patient started the shift in the day room, siting quietly and watching TV while observing peers and staff. Patient showed no signs of agitation while in the day room, was compliant with bedtime medications and had snacks without any noticeable nausea and/or vomiting. After a few hours, patient was helped to his room and tucked in bed where he remained for almost an hour before getting up from his bed and roaming the hallways, confused and crying. When asked what was wrong he alternated between stating either his father was or dying or his mother was or dying. Patient resisted redirection, but was finally re-directed to his room and led to bed. While in his room he started resisting any redirections, became verbally abusive in a few occasions and when the nurse attempted to administer prn medications for anxiety and agitation, patient made a fist and challenged nurse to a fight stating "let's go then, I will punch your fucking face!' Patient then threw a weak an slow punch in an attempt to hit the medicine cup as nurse was stepping away from him. He then threw a second punch, spilling some water. Patient was trying to grab/hold/touch nurse's face when placed left hand up to block the attempt and keep patient at arm's length. Nurse was mater of fact, requesting that patient stop attempting to hit staff. Patient complied. Nurse remained with patient on a one-on-one in his room while patient wandered freely in his room for a bit. After leaving patient alone for a bit, nurse attempted again and patient agreed to take his prn medications. Radiology came up to perform an ordered X-ray of patient's right hip, which was successful after multiple attempts and some resistance. Patient remained in bed after X-ray and currently has eyes closed, breathing normally. Will continue to monitor.
--- NOTE | 2020-09-07 02:09 | RAD ---
XR HIP_RT 2-3VIEWS DATE: 09/06/2020 11:38 PM INDICATION: increased pain / Spl. Instructions: / History: COMPARISON: None. FINDINGS: Bones: There is no evidence of acute fracture or dislocation. Joints: Mild degenerative changes of the hip Miscellaneous: None. IMPRESSION: No evidence of acute fracture. Electronically signed by: Enrike Witt MD (09/07/2020 2:07 AM) [facility]
[2020-09-07 06:43] VITALS: BP 121/71
--- NOTE | 2020-09-07 09:02 | PDOC ---
Exam Note: Raman Note: This note is a late entry for 09/05/2020 covers elements not covered in my initial note. Subjective: The patient was seen individually in the evening of 09/05/2020 with Scott MONTEMAYOR, discussed and reviewed the chart. The patient slept 5 hours previous night. He remains confused, anxious, restless in the morning was combative, did redirect. He was getting aggressive with another demented male patient, compliant with medications, wandering the hallways. Review of Systems: No CV, , pulmonary, eye system symptoms on review. Mental Status Exam: The patient is oriented to himself. Insight and judgment, recent and remote memory, attention and concentration is poor consistent with her diagnoses. Laboratory Data: Reviewed. Impression: Major neurocognitive disorder Alzheimer vascular with delusion, depression, and behavioral disturbance. Anxiety disorder unspecified. Impulse control disorder unspecified. PTSD. Plan: Continue current psychotropics. We will continue to increase the Zoloft and Seroquel as clinically indicated. Maintain Depakote current dosage level therapeutic at 50. He has been started on Prazosin 1 mg h.s. for PTSD, may need to increase this gradually. Assessment: Vital Signs/I&O: Vital Signs Date Time Temp Pulse Resp B/P (MAP) Pulse Ox O2 Delivery O2 Flow Rate FiO2 09/07/20 06:43 97.5 98 18 121/71 (88) Room Air 09/06/20 21:00 98 I & O 09/06/20 09/06/20 09/07/20 15:00 23:00 07:00 Intake Total 720 ml 465 ml Balance 720 ml 465 ml Current Medications: Meds: Current Medications Medications (Trade) Dose Ordered Sig/Abundio Route PRN Reason Start Time Stop Time Status Last Admin Dose Admin Neomycin/ Polymyxin/ Bacitracin (Triple Antibiotic Ointment) 1 pkt 1X ONCE TP 08/28/20 15:15 08/28/20 15:16 DC 08/28/20 15:14 Lorazepam (Ativan) 0.5 mg PRN BID PRN PO ANXIETY 08/28/20 16:00 09/06/20 23:01 Acetaminophen (Tylenol) 650 mg PRN Q6HRS PRN PO MILD PAIN / TEMP > 100.3'F 08/28/20 16:45 Multi-Ingredient Ointment (Analgesic [place]) 1 will PRN QID PRN TP 1ST CHOICE MUSCLE PAIN 08/28/20 16:45 Al Hydroxide/Mg Hydroxide (Mylanta Plus Xs) 15 ml PRN AFTMEALHC PRN PO DYSPEPSIA 08/28/20 16:45 UNV Magnesium Hydroxide (Milk Of Magnesia) 2,400 mg PRN QHS PRN PO 1ST CHOICE CONSTIPATION 08/28/20 16:45 Aspirin (Aspirin Enteric Coated) 81 mg DAILYWBKFT PO 08/29/20 08:00 09/06/20 08:26 Atorvastatin Calcium (Lipitor) 10 mg QHS PO 08/28/20 21:00 09/06/20 21:56 Bisacodyl (Dulcolax Supp) 10 mg PRN DAILY PRN [place] 2ND CHOICE CONSTIPATION 08/28/20 16:15 Divalproex Sodium (Depakote Er) 500 mg QHS PO 08/28/20 21:00 09/01/20 16:54 DC 08/31/20 21:23 Loperamide HCl (Imodium) 2 mg PRN Q15MIN PRN PO DIARRHEA 08/28/20 16:15 Lorazepam (Ativan) 0.5 mg PRN BID PRN PO ANXIETY / AGITATION 08/28/20 16:15 Cancel Magnesium Hydroxide (Milk Of Magnesia) 2,400 mg PRN DAILY PRN PO CONSTIPATION 08/28/20 16:15 UNV Mirtazapine (Remeron) 15 mg QHS PO 08/28/20 21:00 09/06/20 21:56 Al Hydroxide/Mg Hydroxide (Mylanta Plus Xs) 15 ml PRN Q2HR PRN PO DYSPEPSIA 08/28/20 16:15 Pantoprazole Sodium (Protonix) 40 mg DAILY PO 08/29/20 09:00 09/06/20 08:26 Ondansetron HCl (Zofran Odt) 4 mg PRN Q6HRS PRN PO NAUSEA/VOMITING 08/28/20 16:15 Potassium Chloride (Klor-Con) 10 meq QODAY@0800 PO 08/29/20 08:00 09/06/20 08:26 Multivitamins/ Calcium (Thera-M Plus) 1 tab BID PO 08/28/20 21:00 09/06/20 21:55 Artificial Tears (Artificial Tears) 1 drop PRN Q15MIN PRN OU DRY EYE 08/28/20 16:15 Quetiapine Fumarate (SEROquel) 50 mg PRN DAILY PRN PO Agitation 08/28/20 16:15 09/01/20 22:19 Quetiapine Fumarate (SEROquel) 100 mg HS PO 08/28/20 21:00 09/06/20 21:55 Sertraline HCl (Zoloft) 100 mg 1700 PO 08/28/20 17:30 09/06/20 17:17 Acetaminophen (Tylenol) 650 mg PRN Q8HRS ONCE PO 08/28/20 16:15 08/28/20 16:16 UNV Acetaminophen (Tylenol) 650 mg BID PO 08/28/20 21:00 09/06/20 21:54 Diclofenac Sodium (Voltaren) 1 will Q8HRS TP 08/28/20 22:00 08/30/20 03:34 DC 08/29/20 12:12 Trazodone HCl (Desyrel) 50 mg PRN QHS PRN PO Insomnia 08/29/20 16:30 09/06/20 23:01 Olanzapine (ZyPREXA ZYDIS) 2.5 mg PRN Q2HRS PRN PO PSYCHOSIS 08/29/20 16:30 09/06/20 23:01 Diclofenac Sodium (Voltaren) 1 will PRN Q8HRS PRN TP 2ND CHOICE MUSCLE PAIN 08/30/20 03:30 Divalproex Sodium (Depakote Er) 750 mg QHS PO 09/01/20 21:00 09/06/20 21:55 Quetiapine Fumarate (SEROquel) 25 mg 0900,1700 PO 09/05/20 09:00 09/06/20 17:17 Prazosin HCl (Minipress) 1 mg QHS PO 09/04/20 21:00 09/06/20 21:55 I have reviewed the current psychotropics carefully including drug interactions. Risk benefit ratio favors no change other than as noted in my dictated progress note. Diagnosis: Problems: (1) Impulse control disorder, unspecified (2) Anxiety disorder, unspecified (3) Dementia, vascular, with depression (4) Dementia, vascular, with delusions (5) Dementia in Alzheimer's disease with depression (6) Dementia in Alzheimer's disease with delusions (7) Dementia of the Alzheimer's type with early onset with behavioral disturbance (8) Major neurocognitive disorder (9) PTSD (post-traumatic stress disorder) DUANE NINO MD Sep 07, 2020 09:02
[2020-09-07] MEDS: ASPIRIN ENTERIC COATED 81 MG TABLET.DR. PO SCH (09:09)
[2020-09-07] MEDS: QUEtiapine 25 MG TABLET. PO SCH ×2 (09:09→17:54)
[2020-09-07] MEDS: MULTIVITAMIN with MINERAL TABLET. PO SCH (09:09)
[2020-09-07] MEDS: PANTOPRAZOLE 40 MG TABLET. PO SCH (09:09)
[2020-09-07] MEDS: ACETAMINOPHEN 325 MG TABLET PO SCH (09:09)
[2020-09-07] MEDS: LORazepam 0.5 MG TABLET PO PRN ×2 (09:20→19:55)
--- NOTE | 2020-09-07 09:33 | PDOC ---
Exam Note: Raman Note: This note is a late entry for 09/06/2020 covers elements not covered in my initial note. Subjective: The patient was seen individually in the morning of 09/06/2020 for a treatment team meeting with Viola Dozier, Chioma Coburn (social organization professor), Maira, activity therapy and Scott MONTEMAYOR, discussed and reviewed the chart. The patient slept 4 hours previous night. His Heidy and Erna attended the meeting. He remains confused, ambulates on his own, complains of right hip pain. Review of Systems: No CV, , pulmonary, eye system symptoms on review. Reliability poor. Mental Status Exam: I met with him in his room. He is oriented to himself. Insight and judgment, recent and remote memory, attention and concentration is poor consistent with her diagnoses. Laboratory Data: Reviewed. Impression: Major neurocognitive disorder Alzheimer vascular with delusion, depression, and behavioral disturbance. Anxiety disorder unspecified. Impulse control disorder unspecified. PTSD. Plan: Adjust psychotropics further depending on his progress. We may need to increase Prazosin currently 1 mg h.s. for his PTSD symptoms. Assessment: Vital Signs/I&O: Vital Signs Date Time Temp Pulse Resp B/P (MAP) Pulse Ox O2 Delivery O2 Flow Rate FiO2 09/07/20 06:43 97.5 98 18 121/71 (88) Room Air 09/06/20 21:00 98 I & O 09/06/20 09/06/20 09/07/20 15:00 23:00 07:00 Intake Total 720 ml 465 ml Balance 720 ml 465 ml Current Medications: Meds: Current Medications Medications (Trade) Dose Ordered Sig/Abundio Route PRN Reason Start Time Stop Time Status Last Admin Dose Admin Neomycin/ Polymyxin/ Bacitracin (Triple Antibiotic Ointment) 1 pkt 1X ONCE TP 08/28/20 15:15 08/28/20 15:16 DC 08/28/20 15:14 Lorazepam (Ativan) 0.5 mg PRN BID PRN PO ANXIETY 08/28/20 16:00 09/06/20 23:01 Acetaminophen (Tylenol) 650 mg PRN Q6HRS PRN PO MILD PAIN / TEMP > 100.3'F 08/28/20 16:45 Multi-Ingredient Ointment (Analgesic [place]) 1 will PRN QID PRN TP 1ST CHOICE MUSCLE PAIN 08/28/20 16:45 Al Hydroxide/Mg Hydroxide (Mylanta Plus Xs) 15 ml PRN AFTMEALHC PRN PO DYSPEPSIA 08/28/20 16:45 UNV Magnesium Hydroxide (Milk Of Magnesia) 2,400 mg PRN QHS PRN PO 1ST CHOICE CONSTIPATION 08/28/20 16:45 Aspirin (Aspirin Enteric Coated) 81 mg DAILYWBKFT PO 08/29/20 08:00 09/07/20 09:09 Atorvastatin Calcium (Lipitor) 10 mg QHS PO 08/28/20 21:00 09/06/20 21:56 Bisacodyl (Dulcolax Supp) 10 mg PRN DAILY PRN [place] 2ND CHOICE CONSTIPATION 08/28/20 16:15 Divalproex Sodium (Depakote Er) 500 mg QHS PO 08/28/20 21:00 09/01/20 16:54 DC 08/31/20 21:23 Loperamide HCl (Imodium) 2 mg PRN Q15MIN PRN PO DIARRHEA 08/28/20 16:15 Lorazepam (Ativan) 0.5 mg PRN BID PRN PO ANXIETY / AGITATION 08/28/20 16:15 Cancel Magnesium Hydroxide (Milk Of Magnesia) 2,400 mg PRN DAILY PRN PO CONSTIPATION 08/28/20 16:15 UNV Mirtazapine (Remeron) 15 mg QHS PO 08/28/20 21:00 09/06/20 21:56 Al Hydroxide/Mg Hydroxide (Mylanta Plus Xs) 15 ml PRN Q2HR PRN PO DYSPEPSIA 08/28/20 16:15 Pantoprazole Sodium (Protonix) 40 mg DAILY PO 08/29/20 09:00 09/07/20 09:09 Ondansetron HCl (Zofran Odt) 4 mg PRN Q6HRS PRN PO NAUSEA/VOMITING 08/28/20 16:15 Potassium Chloride (Klor-Con) 10 meq QODAY@0800 PO 08/29/20 08:00 09/06/20 08:26 Multivitamins/ Calcium (Thera-M Plus) 1 tab BID PO 08/28/20 21:00 09/07/20 09:09 Artificial Tears (Artificial Tears) 1 drop PRN Q15MIN PRN OU DRY EYE 08/28/20 16:15 Quetiapine Fumarate (SEROquel) 50 mg PRN DAILY PRN PO Agitation 08/28/20 16:15 09/01/20 22:19 Quetiapine Fumarate (SEROquel) 100 mg HS PO 08/28/20 21:00 09/06/20 21:55 Sertraline HCl (Zoloft) 100 mg 1700 PO 08/28/20 17:30 09/06/20 17:17 Acetaminophen (Tylenol) 650 mg PRN Q8HRS ONCE PO 08/28/20 16:15 08/28/20 16:16 UNV Acetaminophen (Tylenol) 650 mg BID PO 08/28/20 21:00 09/07/20 09:09 Diclofenac Sodium (Voltaren) 1 will Q8HRS TP 08/28/20 22:00 08/30/20 03:34 DC 08/29/20 12:12 Trazodone HCl (Desyrel) 50 mg PRN QHS PRN PO Insomnia 08/29/20 16:30 09/06/20 23:01 Olanzapine (ZyPREXA ZYDIS) 2.5 mg PRN Q2HRS PRN PO PSYCHOSIS 08/29/20 16:30 09/06/20 23:01 Diclofenac Sodium (Voltaren) 1 will PRN Q8HRS PRN TP 2ND CHOICE MUSCLE PAIN 08/30/20 03:30 Divalproex Sodium (Depakote Er) 750 mg QHS PO 09/01/20 21:00 09/06/20 21:55 Quetiapine Fumarate (SEROquel) 25 mg 0900,1700 PO 09/05/20 09:00 09/07/20 09:09 Prazosin HCl (Minipress) 1 mg QHS PO 09/04/20 21:00 09/06/20 21:55 I have reviewed the current psychotropics carefully including drug interactions. Risk benefit ratio favors no change other than as noted in my dictated progress note. Diagnosis: Problems: (1) Impulse control disorder, unspecified (2) Anxiety disorder, unspecified (3) Dementia, vascular, with depression (4) Dementia, vascular, with delusions (5) Dementia in Alzheimer's disease with depression (6) Dementia in Alzheimer's disease with delusions (7) Dementia of the Alzheimer's type with early onset with behavioral disturban ce (8) Major neurocognitive disorder (9) PTSD (post-traumatic stress disorder) DUANE NINO MD Sep 07, 2020 09:33
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
--- NOTE | 2020-09-07 10:08 | NUR ---
Patient continues to be agitated, aggressive, combative, and restless; he is wandering the seclusion room, door checking and occasionally banging repeatedly on the windows. HE is refusing to allow staff to scan his wristband. Ordered medication provided per eMAR, will continue to monitor.
[2020-09-07] MEDS ORDERED: oxyCODONE/APAP 7.5/325 1 TAB TABLET PO PRN (12:00)
--- NOTE | 2020-09-07 15:49 | NUR ---
Notified Heidy, spouse/POA, that Eric has tested positive for Covid and will be moved to the medical floor. Provided Heidy with the phone number to the medical floor so that she can call for updates. Eric received his Covid vaccines on 03/22/20 and 04/19/20. Heidy reported that Eric has not had Covid before to her knowledge.
[2020-09-07] MEDS ORDERED: ACET325T21 PO ×2 (16:55)
[2020-09-07] MEDS ORDERED: ASPI-630 PO (16:56)
[2020-09-07] MEDS ORDERED: ATOR10TA60 PO (16:56)
[2020-09-07] MEDS ORDERED: BISA10SU4 RC (16:57)
[2020-09-07] MEDS ORDERED: DICL100G28 TP (16:58)
[2020-09-07] MEDS ORDERED: DIVA250T PO (17:00)
[2020-09-07] MEDS ORDERED: LOPE2TAB27 PO (17:01)
[2020-09-07] MEDS ORDERED: LORA0.5T21 PO (17:02)
[2020-09-07] MEDS ORDERED: MIRT-7 PO (17:03)
[2020-09-07] MEDS ORDERED: MULT-114 PO (17:03)
[2020-09-07] MEDS ORDERED: OLAN5TAB7 PO (17:04)
[2020-09-07] MEDS ORDERED: OMEP20CA16 PO (17:06)
[2020-09-07] MEDS ORDERED: POLY15DR27 OU (17:08)
[2020-09-07] MEDS ORDERED: POTA10TA5 PO (17:09)
[2020-09-07] MEDS ORDERED: PRAZ1CAP2 PO (17:10)
[2020-09-07] MEDS ORDERED: QUET50TA5 PO (17:11)
[2020-09-07] MEDS ORDERED: QUET25TA5 PO (17:11)
[2020-09-07] MEDS ORDERED: SERT100T PO (17:12)
[2020-09-07] MEDS ORDERED: TRAZ-120 PO (17:13)
[2020-09-07] MEDS ORDERED: OXYC1TAB19 PO (17:13)
[2020-09-07] MEDS: SERTRALINE 100 MG TABLET. PO SCH (17:54)
[2020-09-07] MEDS: QUEtiapine 50 MG TABLET. PO PRN (19:55)
--- NOTE | 2020-09-07 20:20 | NUR ---
Transition Record was faxed to follow-up provider with the following elements: Reason for admission, procedures, tests, principal diagnosis, pending studies, patient instructions, 08/09 contact information for unit, phone number to obtain pending test results, plan for follow-up care, physician follow-up, advanced directive information, and medication list with dose, duration and instructions. This information was included in the following documents: History and physical, lab results, study results, progress notes, social work planning form, DC instruction form, patient visit summary, and medication reconciliation form. Date & time record faxed: [id number] Record faxed to: Rossy Cavazos Record discussed with/ report given to: Tanna Cavazos RN
[2020-09-07] MEDS ORDERED: PRAZOSIN 1 MG CAPSULE. PO SCH (21:00)
--- NOTE | 2020-09-07 22:18 | PDOC ---
Exam Note: Raman Note: Please also refer to the separate dictated note~for this date of service dictated separately.~Patient seen individually. Discussed the patient with Nursing staff reviewed the chart.~Reviewed interim history and current functioning. Reviewed vital signs,~Labs/ Radiology~and current medications noted below. Continue current treatment with the changes noted in the dictated addendum note Assessment: Vital Signs/I&O: Vital Signs Date Time Temp Pulse Resp B/P (MAP) Pulse Ox O2 Delivery O2 Flow Rate FiO2 09/07/20 06:43 97.5 98 18 121/71 (88) Room Air 09/06/20 21:00 98 I & O 09/06/20 09/06/20 09/07/20 15:00 23:00 07:00 Intake Total 720 ml 465 ml Balance 720 ml 465 ml Current Medications: Meds: Current Medications Medications (Trade) Dose Ordered Sig/Abundio Route PRN Reason Start Time Stop Time Status Last Admin Dose Admin Neomycin/ Polymyxin/ Bacitracin (Triple Antibiotic Ointment) 1 pkt 1X ONCE TP 08/28/20 15:15 08/28/20 15:16 DC 08/28/20 15:14 Lorazepam (Ativan) 0.5 mg PRN BID PRN PO ANXIETY 08/28/20 16:00 09/07/20 19:55 Acetaminophen (Tylenol) 650 mg PRN Q6HRS PRN PO MILD PAIN / TEMP > 100.3'F 08/28/20 16:45 Multi-Ingredient Ointment (Analgesic [place]) 1 will PRN QID PRN TP 1ST CHOICE MUSCLE PAIN 08/28/20 16:45 Al Hydroxide/Mg Hydroxide (Mylanta Plus Xs) 15 ml PRN AFTMEALHC PRN PO DYSPEPSIA 08/28/20 16:45 UNV Magnesium Hydroxide (Milk Of Magnesia) 2,400 mg PRN QHS PRN PO 1ST CHOICE CONSTIPATION 08/28/20 16:45 Aspirin (Aspirin Enteric Coated) 81 mg DAILYWBKFT PO 08/29/20 08:00 09/07/20 09:09 Atorvastatin Calcium (Lipitor) 10 mg QHS PO 08/28/20 21:00 09/06/20 21:56 Bisacodyl (Dulcolax Supp) 10 mg PRN DAILY PRN [place] 2ND CHOICE CONSTIPATION 08/28/20 16:15 Divalproex Sodium (Depakote Er) 500 mg QHS PO 08/28/20 21:00 09/01/20 16:54 DC 08/31/20 21:23 Loperamide HCl (Imodium) 2 mg PRN Q15MIN PRN PO DIARRHEA 08/28/20 16:15 Lorazepam (Ativan) 0.5 mg PRN BID PRN PO ANXIETY / AGITATION 08/28/20 16:15 Cancel Magnesium Hydroxide (Milk Of Magnesia) 2,400 mg PRN DAILY PRN PO CONSTIPATION 08/28/20 16:15 UNV Mirtazapine (Remeron) 15 mg QHS PO 08/28/20 21:00 09/06/20 21:56 Al Hydroxide/Mg Hydroxide (Mylanta Plus Xs) 15 ml PRN Q2HR PRN PO DYSPEPSIA 08/28/20 16:15 Pantoprazole Sodium (Protonix) 40 mg DAILY PO 08/29/20 09:00 09/07/20 09:09 Ondansetron HCl (Zofran Odt) 4 mg PRN Q6HRS PRN PO NAUSEA/VOMITING 08/28/20 16:15 Potassium Chloride (Klor-Con) 10 meq QODAY@0800 PO 08/29/20 08:00 09/06/20 08:26 Multivitamins/ Calcium (Thera-M Plus) 1 tab BID PO 08/28/20 21:00 09/07/20 09:09 Artificial Tears (Artificial Tears) 1 drop PRN Q15MIN PRN OU DRY EYE 08/28/20 16:15 Quetiapine Fumarate (SEROquel) 50 mg PRN DAILY PRN PO Agitation 08/28/20 16:15 09/07/20 19:55 Quetiapine Fumarate (SEROquel) 100 mg HS PO 08/28/20 21:00 09/06/20 21:55 Sertraline HCl (Zoloft) 100 mg 1700 PO 08/28/20 17:30 09/07/20 17:54 Acetaminophen (Tylenol) 650 mg PRN Q8HRS ONCE PO 08/28/20 16:15 08/28/20 16:16 UNV Acetaminophen (Tylenol) 650 mg BID PO 08/28/20 21:00 09/07/20 09:09 Diclofenac Sodium (Voltaren) 1 will Q8HRS TP 08/28/20 22:00 08/30/20 03:34 DC 08/29/20 12:12 Trazodone HCl (Desyrel) 50 mg PRN QHS PRN PO Insomnia 08/29/20 16:30 09/06/20 23:01 Olanzapine (ZyPREXA ZYDIS) 2.5 mg PRN Q2HRS PRN PO PSYCHOSIS 08/29/20 16:30 09/07/20 09:20 Diclofenac Sodium (Voltaren) 1 will PRN Q8HRS PRN TP 2ND CHOICE MUSCLE PAIN 08/30/20 03:30 Divalproex Sodium (Depakote Er) 750 mg QHS PO 09/01/20 21:00 09/06/20 21:55 Quetiapine Fumarate (SEROquel) 25 mg 0900,1700 PO 09/05/20 09:00 09/07/20 20:19 DC 09/07/20 17:54 Prazosin HCl (Minipress) 1 mg QHS PO 09/04/20 21:00 09/07/20 20:19 DC 09/06/20 21:55 Olanzapine (ZyPREXA ZYDIS) 5 mg 1X ONCE PO 09/07/20 09:45 09/07/20 09:46 DC 09/07/20 10:00 Olanzapine (ZyPREXA ZYDIS) 2.5 mg PRN 1X PRN PO PSYCHOSIS 09/07/20 10:15 09/07/20 11:26 DC 09/07/20 10:42 Olanzapine (ZyPREXA ZYDIS) 5 mg 1X ONCE PO 09/07/20 11:30 09/07/20 11:31 DC 09/07/20 11:31 Oxycodone/ Acetaminophen (Percocet 7.5/ 325) 1 tab PRN Q8HRS PRN PO MOD-SEV PAIN 09/07/20 12:00 Prazosin HCl (Minipress) 3 mg QHS PO 09/07/20 21:00 Quetiapine Fumarate (SEROquel) 37.5 mg 0900,1300,1700 PO 09/08/20 09:00 Current Medications Medications (Trade) Dose Ordered Sig/Abundio Route PRN Reason Start Time Stop Time Status Last Admin Dose Admin Olanzapine (ZyPREXA ZYDIS) 5 mg 1X ONCE PO 09/07/20 09:45 09/07/20 09:46 DC 09/07/20 10:00 Olanzapine (ZyPREXA ZYDIS) 2.5 mg PRN 1X PRN PO PSYCHOSIS 09/07/20 10:15 09/07/20 11:26 DC 09/07/20 10:42 Olanzapine (ZyPREXA ZYDIS) 5 mg 1X ONCE PO 09/07/20 11:30 09/07/20 11:31 DC 09/07/20 11:31 I have reviewed the current psychotropics carefully including drug interactions. Risk benefit ratio favors no change other than as noted in my dictated progress note. Diagnosis: Problems: (1) Impulse control disorder, unspecified (2) Anxiety disorder, unspecified (3) Dementia, vascular, with depression (4) Dementia, vascular, with delusions (5) Dementia in Alzheimer's disease with depression (6) Dementia in Alzheimer's disease with delusions (7) Dementia of the Alzheimer's type with early onset with behavioral disturbance (8) Major neurocognitive disorder (9) PTSD (post-traumatic stress disorder) DUANE NINO MD Sep 07, 2020 22:18
[2020-09-08] MEDS ORDERED: QUEtiapine 25 MG TABLET. PO SCH (09:00)
--- NOTE | 2020-09-08 23:17 | DS ---
DATE OF DISCHARGE: 09/07/2020 DISCHARGE SUMMARY AND PSYCHIATRIC PROGRESS NOTE On Telehealth services due to COVID-19 pandemic. This is a late entry for 09/07/2020, covers the elements not covered in my initial note of 09/07/2020. REASON FOR ADMISSION: Please refer to the admission history for details. Briefly, the patient is a 79-year-old male referred to us from [facility] by his primary care physician on account of worsening confusion, increased agitation, physically aggressive towards staff, swinging his cane at staff. He is inconsistent with taking his medications, wandering, disruptive. The patient's behaviors were deemed unmanageable, had failed outpatient psychiatric interventions resulting in this referral. SIGNIFICANT FINDINGS AND CLINICAL COURSE: Following admission, the patient was seen daily individually by myself from a psychiatric standpoint, medical followup with Dr. Pappas/Dr. Weber. The patient remained confused, oriented just to himself, somewhat paranoid. Additional history was reflective of a prior diagnosis of PTSD. Adjustments were made in his psychotropics and he seemed to respond to a combination of Seroquel 100 mg at bedtime, 37.5 mg 9 a.m., 1:00 p.m., 5:00 p.m.; Zoloft 100 mg a day; prazosin was 1 mg at bedtime, increased to 3 mg at bedtime for his PTSD symptoms since he was having marked mood lability, had to be in seclusion on the day of his discharge. He was also on Zyprexa and trazodone p.r.n. REVIEW OF SYSTEMS: Prior to discharge on 09/07/2020, no CV, , pulmonary, eye, ENT system symptoms on review. Reliability poor. MENTAL STATUS EXAMINATION: Oriented to himself. Insight, judgment, recent and remote memory, attention, concentration, fund of knowledge poor consistent with his diagnoses. FINAL DIAGNOSES: Major neurocognitive disorder, Alzheimer, vascular with delusion; depression; behavioral disturbance; anxiety disorder, unspecified; impulse control disorder, unspecified. Rest diagnoses unchanged from admission. DISCHARGE MEDICATIONS: Please refer to the MRAD. FOLLOWUP: Psychiatric and Medical followup on [address] [place] [address]. The patient was transitioned to [address] [place] [address] medical/surgical floor after his COVID-19 screen returned positive on 09/07/2020. This was a routine weekly screen being done on the unit for every patient and staff member. Once he is medically stable, we will reconsider having him back on a unit given the fact that he continued to have some mood lability and had to be in seclusion on the day of his discharge. Time for discharge day management greater than 30 minutes. ABBE/EKT DR: Judd TID: [id number]
== END 2020-09-07 21:15 | disposition short-term general hospital (02) | DRG 56 ==
LOC: ER 13:57 → GEROPSY 15:45
PROVIDERS: ADMIT Psychiatry & Neurology Psychiatry; ATTEND Psychiatry & Neurology Psychiatry
DX: G30.9 Alzheimer's disease, unspecified (principal); F02.81 Dementia in other diseases classified elsewhere, unspecified severity, with behavioral disturbance; U07.1 COVID-19; F01.51 Vascular dementia, unspecified severity, with behavioral disturbance; E86.0 Dehydration; F32.9 Major depressive disorder, single episode, unspecified; F43.10 Post-traumatic stress disorder, unspecified; F63.9 Impulse disorder, unspecified; G62.9 Polyneuropathy, unspecified; H35.30 Unspecified macular degeneration; H54.8 Legal blindness, as defined in USA; H90.5 Unspecified sensorineural hearing loss; I10 Essential (primary) hypertension; M17.10 Unilateral primary osteoarthritis, unspecified knee; M81.0 Age-related osteoporosis without current pathological fracture; N40.0 Benign prostatic hyperplasia without lower urinary tract symptoms; Z02.89 Encounter for other administrative examinations; Z66 Do not resuscitate; Z79.899 Other long term (current) drug therapy; Z86.73 Personal history of transient ischemic attack (TIA), and cerebral infarction without residual deficits
CPT/HCPCS: 36415; 70450; 73502; 80053; 80061; 80164; 81001; 82306; 82553; 82607; 83036; 83540; 83550; 83735; 84436; 84443; 84480; 84484; 85025; 85379; 86592; 93005; Q0162; U0005; 99285-25

== ENCOUNTER 2020-09-07 19:32 | Inpatient (IN) | payer MEDICARE ==
[~2020-09-07] VITALS: Ht 170.2 cm; Wt 65.4 kg
[~2020-09-07 19:32] MED LIST: ACET325T21 PO; ASPI-630 PO; ATOR10TA60 PO; BISA10SU4 RC; DICL100G28 TP; DIVA250T PO; LOPE2TAB27 PO; LORA0.5T21 PO; MIRT-7 PO; MULT-114 PO; OLAN5TAB7 PO; OMEP20CA16 PO; OXYC1TAB19 PO; POLY15DR27 OU; POTA10TA5 PO; PRAZ1CAP2 PO; QUET25TA5 PO; QUET50TA5 PO; SERT100T PO; TRAZ-120 PO
[2020-09-07 21:31] VITALS: BP 159/87
[2020-09-07] MEDS ORDERED: POLYVINYL ALCOHOL 1.4% OPHTH SOLUTION 15ML BOTTLE. OU PRN (21:45)
[2020-09-07] MEDS ORDERED: LORazepam 0.5 MG TABLET PO PRN ×2 (21:45)
[2020-09-07] MEDS ORDERED: DICLOFENAC SODIUM 1% TOPICAL GEL 100GM TUBE. TP PRN (21:45)
[2020-09-07] MEDS ORDERED: QUEtiapine 50 MG TABLET. PO PRN (21:45)
[2020-09-07] MEDS ORDERED: ACETAMINOPHEN 325 MG TABLET PO PRN (21:45)
[2020-09-07] MEDS ORDERED: BISACODYL 10 MG SUPP.RECT RC PRN (21:45)
--- NOTE | 2020-09-07 22:50 | NUR ---
The patient, NIEVES LEUNG, 79 y/o, M admitted by DUANE NINO MD, was given written information regarding hospital policies, unit procedures and contact persons. Valuables were checked and VITALS OBTAINED. PT IS ON ROOM AIR UP AD ELIZABET IN ROOM. CURRENTLY PT IS RESTING IN BED. WILL CONTINUE TO MONITOR.
[2020-09-07] MEDS ORDERED: LOPERAMIDE 2 MG CAPSULE PO PRN (23:15)
[2020-09-07] MEDS: QUEtiapine 100 MG TABLET. PO SCH (23:50)
[2020-09-07] MEDS: DIVALPROEX ER 250 MG TAB.ER.24H. PO SCH (23:50)
[2020-09-07] MEDS: PRAZOSIN 1 MG CAPSULE. PO SCH (23:50)
[2020-09-07] MEDS: MIRTAZAPINE 15 MG TABLET PO SCH (23:51)
[2020-09-07] MEDS: ATORVASTATIN CALCIUM 10 MG TABLET. PO SCH (23:51)
--- NOTE | 2020-09-08 01:09 | NUR ---
PT HAS MULTIPLE SKIN TEARS BUE. WOUND CARE SIGNED OFF ON PT WHEN HE WAS STILL IN HU
[2020-09-08 06:14] VITALS: BP 109/80
--- NOTE | 2020-09-08 08:00 | NUR ---
Upon entering room, pt was wandering room and bathroom. Pt is calm. Oriented to self only. RN introduced self and patient replied "I think id like to keep you today". Gave patient medications crushed in pudding, pt compliant. WCTM.
[2020-09-08] MEDS: ASPIRIN CHEWABLE 81 MG TABLET. PO SCH (08:40)
[2020-09-08] MEDS: MULTIVITAMIN with MINERAL TABLET. PO SCH (08:40)
[2020-09-08] MEDS: PANTOPRAZOLE 40 MG TABLET. PO SCH (08:40)
[2020-09-08] MEDS: QUEtiapine 25 MG TABLET. PO SCH ×3 (08:41→17:13)
[2020-09-08] MEDS: ACETAMINOPHEN 325 MG TABLET PO SCH ×2 (08:41→20:14)
[2020-09-08] MEDS: POTASSIUM CHLORIDE 10 MEQ TABLET.ER. PO SCH (09:00)
--- NOTE | 2020-09-08 10:05 | NUR ---
At 0950 RN heard "Oh Eva Charles", RN immediately entered patients room and found patient sitting on his bottom in bathroom. Pt reports he fell to his bottom. Pt reports his hip is sore. Vitals obtained. Nursing supervisor water softener service notified, Dr Weber notified. Will call family. WCTM.
[2020-09-08 10:15] VITALS: BP 109/45
--- NOTE | 2020-09-08 12:19 | HP ---
ADMIT DATE: 09/08/2020 ATTENDING PHYSICIAN: Dr. Weber. HISTORY OF PRESENT ILLNESS: This is a pleasant 79-year-old gentleman who had been at the [facility]. He is asymptomatic. He was tested positive for coronavirus. He has no pulmonary symptoms. No fevers. Because of the nature of the illness, he was discharged from the behavioral unit and sent down to the medical floor to be admitted to the hospitalist service. We are familiar with him. He has been here in this facility since 08/28/2020. The patient comes from [place], [place]. He lives in [facility]. He has worsening confusion with increased agitation, being aggressive. His behavior has been fairly manageable. Therefore, he was sent here for further treatment and evaluation. PAST MEDICAL HISTORY: Significant for macular degeneration, legally blind, sensorineural deafness, hypertension, degenerative arthritis, benign prostatic hypertrophy and peripheral neuropathy. CURRENT MEDICATIONS: Reviewed. ALLERGIES: He has no recorded drug allergies. Currently, he was taking Tylenol, aspirin, Lipitor, diclofenac gel, loperamide p.r.n., lorazepam p.r.n., Remeron, multivitamin, Zyprexa, omeprazole, oxycodone p.r.n., artificial tears, potassium, prazosin, Seroquel, Zoloft and trazodone. He was a smoker in the past. He was not actively smoking. FAMILY HISTORY: Noncontributory. SOCIAL HISTORY: Resident of [facility] in [place], [place]. REVIEW OF SYSTEMS: Unremarkable for any recent fevers, chills, cough or congestion. PHYSICAL EXAMINATION: GENERAL: When I saw him this is a pleasantly confused elderly gentleman. INITIAL VITAL SIGNS: Showed that he was afebrile, blood pressure was 109/45, pulse 74 and regular, oxygen saturation 99% on room air. HEENT: Head is without trauma. Pupils are reactive. Sclerae nonicteric. He is legally blind. NECK: Supple. No bruits identified. LUNGS: Otherwise, clear to auscultation. CARDIOVASCULAR: Regular heart tones. No gallops. ABDOMEN: Soft, scaphoid, nontender. EXTREMITIES: Without edema. NEUROLOGIC: Focally intact. He is confused. His speech is fluent. PERTINENT LABORATORY STUDIES: Most recently done 4 days ago. His hemoglobin was 12.6 g/dL with a white count of 7600. Serology is indeed positive for SARS COVID-2 coronavirus reported on 09/06/2020. Electrolytes within normal range. Creatinine is 0.8 mg percent. Transaminases were normal. ASSESSMENT: 1. This 79-year-old gentleman has profound dementia with behavioral issues. 2. He tested positive for COVID whether this is a false positive or otherwise he remains asymptomatic at this time. 3. Essential hypertension. 4. Degenerative arthritis. 5. Macular degeneration. 6. Sensorineural hearing loss. PLAN: 1. He will be admitted to the medical floor. 2. His psychiatric meds and home meds have been continued. 3. Diet as tolerated. 4. He will spend the time here where repeat testing will be available before he can return to the shelter. Please note that he is a DNR per advanced directive, we will respect these wishes. AGGIE DR: Luiz TID: [id number] CC: DUANE NINO MD
--- NOTE | 2020-09-08 14:31 | NUR ---
Patient does have large bruise on right buttock to right leg. SIM Chavez from [facility] reports patient has had this for a few days. Bruise is not from todays fall. HEMALATHA.
[2020-09-08] MEDS: oxyCODONE/APAP 7.5/325 1 TAB TABLET PO PRN ×2 (15:06→23:25)
[2020-09-08 15:12] VITALS: BP 129/62
[2020-09-08] MEDS: SERTRALINE 100 MG TABLET. PO SCH (17:13)
[2020-09-08] MEDS: QUEtiapine 100 MG TABLET. PO SCH (19:50)
[2020-09-08] MEDS: DIVALPROEX ER 250 MG TAB.ER.24H. PO SCH (19:51)
[2020-09-08 20:10] VITALS: BP 131/48
[2020-09-08] MEDS: PRAZOSIN 1 MG CAPSULE. PO SCH (20:13)
[2020-09-08] MEDS: MIRTAZAPINE 15 MG TABLET PO SCH (20:14)
[2020-09-08] MEDS: ATORVASTATIN CALCIUM 10 MG TABLET. PO SCH (20:14)
--- NOTE | 2020-09-09 02:44 | NUR ---
Nursing note: Pt bed alarmed through shift d/t fall; c/o pain in R hip but spit out percocet when attempting to medicate for pain.
[2020-09-09 06:31] VITALS: BP 119/74
[2020-09-09] MEDS: ASPIRIN CHEWABLE 81 MG TABLET. PO SCH (08:53)
[2020-09-09] MEDS: PANTOPRAZOLE 40 MG TABLET. PO SCH (08:54)
[2020-09-09] MEDS: QUEtiapine 25 MG TABLET. PO SCH ×3 (08:54→17:08)
[2020-09-09] MEDS: MULTIVITAMIN with MINERAL TABLET. PO SCH (08:54)
[2020-09-09] MEDS: ACETAMINOPHEN 325 MG TABLET PO SCH ×2 (08:55→19:18)
[2020-09-09] MEDS: SERTRALINE 100 MG TABLET. PO SCH (17:00)
--- NOTE | 2020-09-09 18:34 | PN ---
DATE: 09/09/2020 ATTENDING PHYSICIAN: Dr. Weber. SUBJECTIVE: No complaints. He is unclear as to why he is even in the hospital. OBJECTIVE FINDINGS: VITAL SIGNS: Blood pressure is 130/48. He is afebrile. Oxygen saturation 97% on room air. HEENT: Head is without trauma. Pupils are reactive. Sclerae nonicteric. Oropharynx clear. NECK: Supple, no bruits identified. LUNGS: Clear. CARDIOVASCULAR: Regular heart tones. No gallops. ABDOMEN: Soft. EXTREMITIES: Without edema. NEUROLOGIC: Pleasantly confused. ASSESSMENT: 1. A 79-year-old gentleman with dementia and behavioral issues on the [facility]. 2. He had a positive test for COVID coronavirus. He is not symptomatic at this time. 3. Essential hypertension. 4. Degenerative arthritis. 5. Macular degeneration. 6. Sensorineural hearing loss. PLAN: 1. We will maintain COVID isolation. 2. Follow up swabs next week. He may certainly had a false positive test. 3. Continue psychiatric medications as ordered. JESS DR: Luiz TID: [id number]
[2020-09-09] MEDS: QUEtiapine 100 MG TABLET. PO SCH (19:16)
[2020-09-09] MEDS: DIVALPROEX ER 250 MG TAB.ER.24H. PO SCH (19:16)
[2020-09-09] MEDS: ATORVASTATIN CALCIUM 10 MG TABLET. PO SCH (19:16)
[2020-09-09] MEDS: MIRTAZAPINE 15 MG TABLET PO SCH (19:18)
[2020-09-09] MEDS: oxyCODONE/APAP 7.5/325 1 TAB TABLET PO PRN (19:18)
[2020-09-09] MEDS: PRAZOSIN 1 MG CAPSULE. PO SCH (19:19)
[2020-09-09] MEDS: traZODone 50 MG TABLET. PO PRN (22:07)
[2020-09-10 04:51] VITALS: BP 121/67
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
[2020-09-10] MEDS: ASPIRIN CHEWABLE 81 MG TABLET. PO SCH (07:46)
[2020-09-10] MEDS: PANTOPRAZOLE 40 MG TABLET. PO SCH (07:46)
[2020-09-10] MEDS: oxyCODONE/APAP 7.5/325 1 TAB TABLET PO PRN ×2 (07:48→22:47)
[2020-09-10] MEDS: QUEtiapine 25 MG TABLET. PO SCH ×6 (07:48→19:07)
[2020-09-10] MEDS: MULTIVITAMIN with MINERAL TABLET. PO SCH (07:49)
[2020-09-10] MEDS: ACETAMINOPHEN 325 MG TABLET PO SCH ×2 (07:50→22:46)
[2020-09-10] MEDS: POTASSIUM CHLORIDE 10 MEQ TABLET.ER. PO SCH (09:00)
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
[2020-09-10] MEDS: SERTRALINE 100 MG TABLET. PO SCH ×3 (17:00→18:54)
[2020-09-10 19:10] VITALS: BP 99/52
[2020-09-10] MEDS: PRAZOSIN 1 MG CAPSULE. PO SCH (21:00)
--- NOTE | 2020-09-10 22:25 | NUR ---
PT WAS SLEEPING DURING MED PASS. MEDS NOT GIVEN AT THIS TIME.
[2020-09-10] MEDS: MIRTAZAPINE 15 MG TABLET PO SCH (22:46)
[2020-09-10] MEDS: DIVALPROEX ER 250 MG TAB.ER.24H. PO SCH (22:46)
[2020-09-10] MEDS: QUEtiapine 100 MG TABLET. PO SCH (22:47)
[2020-09-10] MEDS: ATORVASTATIN CALCIUM 10 MG TABLET. PO SCH (22:47)
--- NOTE | 2020-09-10 23:50 | PN ---
DATE: 09/10/2020 ATTENDING PHYSICIAN: Dr. Weber. SUBJECTIVE: The patient is up and ambulating. He is oxygenating well on room air. He has no new complaints. He remains quite confused and demented, requiring significant nursing care. OBJECTIVE FINDINGS: VITAL SIGNS: Blood pressure this morning is 122/67 mmHg, oxygen saturation 97% on room air, pulse 90 and regular, his temperature is 97.9 degrees Fahrenheit. HEENT: Head is without trauma. Pupils are reactive. Sclerae nonicteric. Oropharynx clear. NECK: Supple. LUNGS: Clear to auscultation. CARDIOVASCULAR: Regular heart tones. No gallops. ABDOMEN: Soft. EXTREMITIES: Without edema. NEUROLOGIC: Profoundly confused. ASSESSMENT: 1. A 79-year-old gentleman with dementia, behavioral issues from the [facility]. 2. Positive swab for COVID-19 coronavirus. He is not symptomatic at this time. 3. Essential hypertension. 4. Degenerative arthritis. 5. Macular degeneration. 6. Sensorineural hearing loss. PLAN: 1. We will maintain COVID isolation. 2. Home medications were reviewed. 3. We shall recheck his swabs and determine whether he remains positive or whether it was a false positive test. 4. Continue psychiatric medications as ordered. HARI/MERT DR: Luiz TID: [id number]
--- NOTE | 2020-09-11 04:41 | NUR ---
PT DID RECEIVE MEDICATION THIS HS. PT HAS SLEPT THROUGH THE NIGHT WITH PERCOCET BEING THE ONLY PRN GIVEN.
[2020-09-11] MEDS: ACETAMINOPHEN 325 MG TABLET PO SCH ×2 (08:59→20:10)
[2020-09-11] MEDS: QUEtiapine 25 MG TABLET. PO SCH ×2 (08:59→13:00)
[2020-09-11] MEDS: ASPIRIN CHEWABLE 81 MG TABLET. PO SCH (08:59)
[2020-09-11] MEDS: MULTIVITAMIN with MINERAL TABLET. PO SCH (08:59)
[2020-09-11] MEDS: PANTOPRAZOLE 40 MG TABLET. PO SCH (08:59)
[2020-09-11 10:15] VITALS: BP 106/50
[2020-09-11 12:49] VITALS: BP 99/46
[2020-09-11 15:22] LABS: BASO % 1 % (0-3); EOS # 0.4 x10^3/uL (0.0-0.7); EOS % 6 % (0-3); HEMATOCRIT 32.4 % (39.0-53.0); HEMOGLOBIN 10.7 g/dL (13.0-17.5); LYMPH # 1.2 x10^3/uL (1.0-4.8); LYMPH % 19 % (24-48); MEAN CORPUSCULAR HEMOGLOBIN 30 pg (25-35); MEAN CORPUSCULAR HGB CONC 33 g/dL (31-37); MEAN CORPUSCULAR VOLUME 89 fL (79-100); MONO # 1.1 x10^3/uL (0.0-1.1); MONO % 17 % (0-9); NEUT # 3.7 x10^3uL (1.8-7.7); NEUT % 57 % (31-73); PLATELET COUNT 93 x10^3/uL (140-400); RED BLOOD COUNT 3.63 x10^6/uL (4.30-5.70); RED CELL DISTRIBUTION WIDTH 16.4 % (11.5-14.5); WHITE BLOOD COUNT 6.4 x10^3/uL (4.0-11.0)
[2020-09-11 15:24] LABS: CALCIUM 7.9 mg/dL (8.5-10.1); CREATININE 1.1 mg/dL (0.7-1.3); GFR 64.9; POTASSIUM 3.6 mmol/L (3.5-5.1)
[2020-09-11 15:31] VITALS: BP 103/37
[2020-09-11 16:48] VITALS: BP 128/67
[2020-09-11] MEDS: ATORVASTATIN CALCIUM 10 MG TABLET. PO SCH (20:10)
[2020-09-11] MEDS: MIRTAZAPINE 15 MG TABLET PO SCH (20:10)
[2020-09-11] MEDS: PRAZOSIN 1 MG CAPSULE. PO SCH (20:10)
[2020-09-11] MEDS: traZODone 50 MG TABLET. PO PRN ×2 (20:10→22:00)
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
--- NOTE | 2020-09-12 05:31 | PN ---
DATE: 09/11/2020 SUBJECTIVE: The patient is resting comfortably. No new complaints. OBJECTIVE FINDINGS: VITAL SIGNS: He is afebrile. Blood pressure today is 106/50, pulse is 80 and regular. Oxygen saturation 95% on room air. HEENT: Head is without trauma. Pupils are reactive. Sclerae nonicteric. Oropharynx is clear. NECK: Supple, no bruits identified. LUNGS: Otherwise clear. CARDIOVASCULAR: Showed regular heart tones. No gallop. ABDOMEN: Soft. EXTREMITIES: Without edema. NEUROLOGIC: Profoundly confused. ASSESSMENT: 1. A 79-year-old gentleman with dementia and behavioral issues from the [facility]. 2. Positive swab for coronavirus infection. He remains asymptomatic at this time. 3. Essential hypertension. 4. Degenerative arthritis. 5. Macular degeneration. 6. Sensorineural hearing loss. PLAN: 1. Home meds reviewed and continued. 2. Recommendations per Psychiatry. 3. We shall recheck the COVID swab later this week to reassess his status. KOFFI/ALESHIA DR: Luiz TID: [id number]
[2020-09-12 06:05] VITALS: BP 116/59
--- NOTE | 2020-09-12 06:15 | NUR ---
Pt awake all night, only got 30 mins of sleep. Pt either awake in bed talking to himself/staff, fidgeting with blankets or up in room. Pt frequently asking for snacks, stating "I am hungry". Pt provided with snacks (chips, crackers and cookies) Pt both cont and incont during night. Pt complaint with vitals signs this AM, BP 116/59.
[2020-09-12] MEDS: MULTIVITAMIN with MINERAL TABLET. PO SCH (08:28)
[2020-09-12] MEDS: ASPIRIN CHEWABLE 81 MG TABLET. PO SCH (08:28)
[2020-09-12] MEDS: PANTOPRAZOLE 40 MG TABLET. PO SCH (08:28)
[2020-09-12] MEDS: ACETAMINOPHEN 325 MG TABLET PO SCH ×2 (08:30→19:07)
[2020-09-12] MEDS: POTASSIUM CHLORIDE 10 MEQ TABLET.ER. PO SCH (08:30)
[2020-09-12] MEDS: QUEtiapine 25 MG TABLET. PO SCH ×3 (10:00→16:25)
[2020-09-12] MEDS: LORazepam 0.5 MG TABLET PO PRN ×2 (10:00→19:07)
[2020-09-12] MEDS: oxyCODONE/APAP 7.5/325 1 TAB TABLET PO PRN (10:51)
--- NOTE | 2020-09-12 11:08 | NUR ---
PATIENT IS AWAKE PACING THE HALLWAY, RESTLESS, CHECKING THE DOORS, STATED HE IS LOOKING FOR HIS AND A CAR, PATIENT IS RESISTIVE WITH MED ADMINISTRATION, MEDS CRUSHED IN A PUDDING. PATIENT IS GETTING AGITATED WITH REDIRECTIONS WHEN TRYING TO GET TO OTHER PATIENT'S ROOMS. PRN ATIVAN GIVEN TO DECREASE AGITATION.
--- NOTE | 2020-09-12 11:15 | NUR ---
PATIENT KEEPS WONDERING THE HALLWAY, STATED HIS HIP HURTS, HOLDING ON TO HIS BACK WITH HIS HAND. PATIENT IS CONFUSED AND UNABLE TO GIVE A SCORE. PERCOCET GIVEN ORDERED TO MANAGE PAIN. WILL CTM.
[2020-09-12] MEDS: QUEtiapine 50 MG TABLET. PO PRN (11:53)
--- NOTE | 2020-09-12 12:57 | NUR ---
PATIENT CONTINUE TO PACE THE HALLWAY, LOOKING FOR THE DOOR TO GET OUTSIDE, TRYING TO ELOPE THE UNIT. GETTING ANGRY WITH REDIRECTIONS, SEROQUEL PRN ADMINISTERED ORDERED, PATIENT IS CURRENTLY SITTING BY THE TV IN A DAY ROOM UNDER SUPERVISION OF STAFF.
[2020-09-12] MEDS: SERTRALINE 100 MG TABLET. PO SCH (16:25)
[2020-09-12 17:03] VITALS: BP 110/54
[2020-09-12] MEDS: traZODone 50 MG TABLET. PO PRN (19:07)
[2020-09-12] MEDS: PRAZOSIN 1 MG CAPSULE. PO SCH (19:07)
[2020-09-12] MEDS: ATORVASTATIN CALCIUM 10 MG TABLET. PO SCH (19:07)
[2020-09-12] MEDS: QUEtiapine 100 MG TABLET. PO SCH (19:07)
[2020-09-12] MEDS: MIRTAZAPINE 15 MG TABLET PO SCH (19:07)
[2020-09-12 19:11] LABS: ALBUMIN 3.2 g/dL (3.4-5.0); ALBUMIN/GLOBULIN RATIO 0.9 (1.0-1.7); CALCIUM 8.2 mg/dL (8.5-10.1); CREATININE 0.9 mg/dL (0.7-1.3); GFR 81.8; POTASSIUM 3.8 mmol/L (3.5-5.1); TOTAL BILIRUBIN 0.5 mg/dL (0.2-1.0); TOTAL PROTEIN 6.7 g/dL (6.4-8.2)
[2020-09-12] MEDS ORDERED: DIVALPROEX ER 250 MG TAB.ER.24H. PO ONE (19:27)
[2020-09-12] MEDS: DIVALPROEX ER 250 MG TAB.ER.24H. PO SCH (19:28)
--- NOTE | 2020-09-12 23:44 | PN ---
DATE: 09/12/2020 SUBJECTIVE: The patient is a 79-year-old male patient who was transferred from [facility] on account of having asymptomatic COVID-19 infection. He is extremely confused, does not offer any information. Nursing staff stated that he is constantly wandering, pacing and difficult to redirect, but he continued to be asymptomatic. PHYSICAL EXAMINATION: GENERAL: When I examined him, he looked pale, no jaundice or cyanosis, no lymphadenopathy, no thyromegaly, no jugular venous distention. No lower limb edema. VITAL SIGNS: Her heart rate was 62, blood pressure is 116/59, temperature was 97.6, respiratory rate was 18 and oxygen saturation was 98% on room air. HEAD, EYES, EARS, NOSE, AND THROAT: Normocephalic, atraumatic. NECK: Supple. HEART: Showed normal first and second heart sounds, no gallop, rub or murmur. CHEST: Shows central trachea, equal bilateral chest expansion, air entry, vesicular breath sounds. No crepitation or rhonchi. ABDOMEN: Slightly distended, soft, nontender. NEUROLOGIC: He is extremely demented without any obvious lateralizing signs. All his cranial nerves are intact. He moves extremities without difficulty, ambulates without assistance or assistive devices. His intake and output are incompletely recorded. LABORATORY DATA: Showed a serum sodium 146, potassium 3.6, chloride 109, bicarbonate 31, anion gap of 6, BUN 39, creatinine 1.1. Estimated GFR was 64 mL per minute. His glucose 103 and calcium was 7.9. His white cell count was 6400, hemoglobin 11, hematocrit 32, MCV 89 and platelet count of 93,000. ASSESSMENT: 1. Asymptomatic coronavirus infection. 2. Hypertension. 3. Macular degeneration. 4. Sensorineural deafness. 5. Degenerative disk disease. PLAN: To obviously continue with all his current medications. I will repeat all his lab work and decide further management accordingly. JIL/HALI DR: Jase TID: [id number]
--- NOTE | 2020-09-13 01:16 | NUR ---
Pt given PRN trazodone to aid sleep. Pt compliant with HS meds crushed in pudding and ate several subsequent snacks. Pt fell asleep at approx. 2100 and slept soundly until 0045. Pt awoke and exited bed, sounding alarm. Pt standing in corner of room attempting to urinate on wall. Pt required repeated redirection by staff to void in toilet. Pt dribbled some urine on brief and PJ pants. Pt does not follow directions well and took several minutes to take a seat and allow staff to change soiled brief/pants, but did eventually comply. Pt assisted back to bed with alarm set for safety. Currently mumbling to self and fidgeting with blankets. Addendum: 09/13/20 at 0621 by EDGARDO MESSER RN Pt settled down and slept for the rest of the noc.
[2020-09-13 06:39] VITALS: BP 134/71
[2020-09-13 07:17] LABS: BASO % 1 % (0-3); EOS # 0.3 x10^3/uL (0.0-0.7); EOS % 6 % (0-3); HEMATOCRIT 35.5 % (39.0-53.0); HEMOGLOBIN 11.6 g/dL (13.0-17.5); LYMPH # 0.9 x10^3/uL (1.0-4.8); LYMPH % 18 % (24-48); MEAN CORPUSCULAR HEMOGLOBIN 29 pg (25-35); MEAN CORPUSCULAR HGB CONC 33 g/dL (31-37); MEAN CORPUSCULAR VOLUME 89 fL (79-100); MONO # 0.7 x10^3/uL (0.0-1.1); MONO % 13 % (0-9); NEUT # 3.2 x10^3uL (1.8-7.7); NEUT % 62 % (31-73); PLATELET COUNT 111 x10^3/uL (140-400); RED CELL DISTRIBUTION WIDTH 16.1 % (11.5-14.5); WHITE BLOOD COUNT 5.1 x10^3/uL (4.0-11.0)
[2020-09-13] MEDS: MULTIVITAMIN with MINERAL TABLET. PO SCH (07:44)
[2020-09-13] MEDS: PANTOPRAZOLE 40 MG TABLET. PO SCH (07:44)
[2020-09-13] MEDS: ASPIRIN CHEWABLE 81 MG TABLET. PO SCH (07:44)
[2020-09-13] MEDS: ACETAMINOPHEN 325 MG TABLET PO SCH ×2 (07:45→20:26)
[2020-09-13] MEDS: QUEtiapine 25 MG TABLET. PO SCH ×3 (07:45→17:32)
--- NOTE | 2020-09-13 10:59 | NUR ---
Nursing Note Consult Consult ordered and faxed for Dr. Davis
[2020-09-13] MEDS: LORazepam 0.5 MG TABLET PO PRN (15:35)
[2020-09-13 15:45] VITALS: BP 153/53
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
[2020-09-13] MEDS: SERTRALINE 100 MG TABLET. PO SCH (17:32)
--- NOTE | 2020-09-13 18:25 | RAD ---
Exam: Right hip 2 views INDICATION: Fall, hip pain TECHNIQUE: Frontal and frog-leg lateral views the right hip Comparisons: 09/06/2020 FINDINGS: Bone mineralization is normal. No acute or healed fractures. Soft tissues are unremarkable. Joint spa denise are well-maintained. IMPRESSION: No acute osseous abnormality. Electronically signed by: Ann Mcbride MD (09/13/2020 6:23 PM) RY
[2020-09-13 20:22] VITALS: BP 167/68
[2020-09-13] MEDS: traZODone 50 MG TABLET. PO PRN (20:25)
[2020-09-13] MEDS: ATORVASTATIN CALCIUM 10 MG TABLET. PO SCH (20:25)
[2020-09-13] MEDS: QUEtiapine 100 MG TABLET. PO SCH (20:26)
[2020-09-13] MEDS: MIRTAZAPINE 15 MG TABLET PO SCH (20:26)
[2020-09-13] MEDS: PRAZOSIN 1 MG CAPSULE. PO SCH (20:31)
[2020-09-13] MEDS: QUEtiapine 50 MG TABLET. PO PRN (20:32)
[2020-09-13] MEDS: DIVALPROEX ER 250 MG TAB.ER.24H. PO SCH ×2 (20:41→21:00)
--- NOTE | 2020-09-14 01:34 | PN ---
DATE: 09/13/2020 SUBJECTIVE: The patient is sitting at the edge of the bed, eating his lunch comfortably, in no apparent distress. He is extremely confused, does not give any useful information. He is less agitated. He is not pacing or attempting to elope. When I saw him this afternoon, he looked well and was clearly in no apparent respiratory distress. No pallor, jaundice, cyanosis or thyromegaly. No jugular venous distention. No limb edema. PHYSICAL EXAMINATION: VITAL SIGNS: His heart rate was 72, blood pressure is 154/71, temperature was 96.4, respiratory rate was 16 and oxygen saturation was 99% on room air. HEAD, EYES, EARS, NOSE AND THROAT: Normocephalic, atraumatic. NECK: Supple. HEART: Shows normal first and second heart sounds. No gallop or murmur. CHEST: Clear to auscultation. No crepitation or rhonchi. ABDOMEN: Distended, soft, nontender. NEUROLOGIC: He is extremely confused, demented, but without any obvious lateralizing sign. EXTREMITIES: He moves extremities without difficulty, ambulates without assistance or assistive devices. His intake was 980, no output was recorded. LABORATORY WORK: This morning showed a white cell count 5000, hemoglobin 11, hematocrit 35, MCV 89 and platelet count of 111. His chemistry showed a serum sodium 143, potassium 3.8, chloride 108, bicarbonate 30, anion gap of 5. BUN 31, creatinine 0.9. Estimated GFR was 81 mL/min. His glucose 156. Calcium was 8.2. Total bilirubin, AST, ALT, alkaline phosphatase were normal. C-reactive protein was high at 91. Total protein 6.7, albumin was 3.2 and his D-dimer was 0.77. His COVID-19 by PCR was negative. ASSESSMENT: 1. Asymptomatic coronavirus infection. His coronavirus came back negative. 2. Hypertension. 3. Macular degeneration. 4. Sensorineural deafness. 5. Degenerative disk disease. PLAN: To continue with all his current medications. Obviously his coronavirus by SARS-CoV-2 RNA was positive on 09/06 and today it is negative. I will discuss with the DON the policy regarding returning him back to the [facility]. JIL/SHENG DR: Jase TID: [id number]
[2020-09-14 07:36] VITALS: BP 128/55
[2020-09-14] MEDS: ACETAMINOPHEN 325 MG TABLET PO SCH ×2 (08:31→19:54)
[2020-09-14] MEDS: QUEtiapine 25 MG TABLET. PO SCH ×3 (08:31→16:44)
[2020-09-14] MEDS: MULTIVITAMIN with MINERAL TABLET. PO SCH (08:31)
[2020-09-14] MEDS: PANTOPRAZOLE 40 MG TABLET. PO SCH (08:32)
[2020-09-14] MEDS: ASPIRIN CHEWABLE 81 MG TABLET. PO SCH (08:32)
[2020-09-14] MEDS: POTASSIUM CHLORIDE 10 MEQ TABLET.ER. PO SCH (09:00)
--- NOTE | 2020-09-14 12:31 | NUR ---
PATIENT IS AWAKE SITTING IN A ROOM UPON ASSESSMENT, PATIENT IS A/O X1, CONFUSED, PATIENT WALKED OUT OF HIS ROOM SEVERAL TIMES, ASKING ABOUT HIS , PATIENT WAS REDIRECTED BACK TO HIS ROOM , REORIENTED , PATIENT IF FORGETFUL , CONTINUE TO ASK WHERE IS . ZYPREXA ZYDIS GIVEN ORDERED TO DECREASE ANXIETY/AGITATION.
[2020-09-14] MEDS: oxyCODONE/APAP 7.5/325 1 TAB TABLET PO PRN ×3 (13:41→22:30)
[2020-09-14] MEDS: SERTRALINE 100 MG TABLET. PO SCH (16:44)
[2020-09-14 19:00] VITALS: BP 138/69
[2020-09-14] MEDS: PRAZOSIN 1 MG CAPSULE. PO SCH (19:53)
[2020-09-14] MEDS: QUEtiapine 100 MG TABLET. PO SCH (19:54)
[2020-09-14] MEDS: ATORVASTATIN CALCIUM 10 MG TABLET. PO SCH (19:54)
[2020-09-14] MEDS: traZODone 50 MG TABLET. PO PRN (19:54)
[2020-09-14] MEDS: DIVALPROEX ER 250 MG TAB.ER.24H. PO SCH (19:54)
[2020-09-14] MEDS: MIRTAZAPINE 15 MG TABLET PO SCH (19:54)
--- NOTE | 2020-09-15 03:06 | PN ---
DATE: 09/14/2020 SUBJECTIVE: The patient is sitting comfortably in his chair, in no apparent respiratory distress. He is awake, alert. On questioning him, he denied any complaint. Nursing staff did not voice any concerns. States that he continued to be asymptomatic. He has no fever, no cough or phlegm. PHYSICAL EXAMINATION: GENERAL: When I examined him, he looked pale, but no jaundice, cyanosis or thyromegaly. No jugular venous distention. No limb edema. VITAL SIGNS: His heart rate was 81, blood pressure was 128/55, temperature was 97, respiratory rate was 16 and oxygen saturation was 99% on room air. The rest of clinical exam stable. He is ambulating without assistance or assistive devices, although he is extremely demented and at times very confused and agitated. LABORATORY DATA: Showed that he has normochromic normocytic anemia and mild thrombocytopenia. His chemistry was mostly unremarkable. D-dimer was 0.77. ASSESSMENT: 1. Asymptomatic coronavirus infection. In fact, his coronavirus test came back negative. 2. Hypertension. 3. Macular degeneration. 4. Sensorineural deafness. 5. Degenerative disk disease. PLAN: To continue with all his current medication. Apparently, he has to be here for about 10 days prior to his ability to go back to [facility] unit. NAZIA DR: Jase TID: [id number]
[2020-09-15 07:00] VITALS: BP 141/61
[2020-09-15] MEDS: ASPIRIN CHEWABLE 81 MG TABLET. PO SCH (09:30)
[2020-09-15] MEDS: QUEtiapine 25 MG TABLET. PO SCH ×3 (09:31→17:40)
[2020-09-15] MEDS: MULTIVITAMIN with MINERAL TABLET. PO SCH (09:32)
[2020-09-15] MEDS: ACETAMINOPHEN 325 MG TABLET PO SCH ×2 (09:32→21:27)
[2020-09-15] MEDS: PANTOPRAZOLE 40 MG TABLET. PO SCH (09:33)
[2020-09-15] MEDS: oxyCODONE/APAP 7.5/325 1 TAB TABLET PO PRN (11:23)
--- NOTE | 2020-09-15 14:52 | RAD ---
Three-view right rib detail series and PA view chest x-ray Clinical indications: Fall and right rib pain. FINDINGS: No right rib fracture is evident. Chest x-ray demonstrates bibasilar atelectasis and/or lung infiltrate. There is mild blunting of the left lateral costophrenic angle which could be due to a small left-sided pleural effusion. No pneumot horax is evident. The heart size and pulmonary vasculature and mediastinum are unremarkable. IMPRESSION: No acute right rib fracture. Bibasilar infiltrate or atelectasis. Small left-sided pleural effusion. Electronically signed by: Fei Lobo MD (09/15/2020 2:50 PM) [id number]
--- NOTE | 2020-09-15 14:56 | RAD ---
AP VIEW OF THE PELVIS AND TWO-VIEW STUDY OF THE RIGHT HIP NOTE-THIS X-RAY STUDY IS UNDER THE RIGHT RIB STUDY PERFORMED ON THE SAME DAY IN THE [facility]. Clinical indications: Right hip pain after a fall. FINDINGS: No acute fracture or dislocation or lytic process is seen. No diastases of the symphysis pu bis or either SI joint is evident. IMPRESSION: No acute osseous abnormality. Electronically signed by: Fei Lobo MD (09/15/2020 2:53 PM) [id number]
[2020-09-15] MEDS: SERTRALINE 100 MG TABLET. PO SCH (17:39)
[2020-09-15 18:38] VITALS: BP 154/71
--- NOTE | 2020-09-15 19:38 | RAD ---
Two-view study soft tissues of the neck Clinical indications: Something stuck in throat. Spitting up thick mucus. No abnormal thickening of t he epiglottis or aryepiglottic folds is seen. No abnormal distention of the hypopharynx is evident. N o prevertebral soft tissue swelling is seen. Cartilaginous calcification is seen. There is a round ca lcification which is located within the lateral left neck. Degenerative spondylosis and spondylolisth esis of the cervical spine is seen. IMPRESSION: No radiopaque foreign body is evident. Electronically signed by: Fei Lobo MD (09/15/2020 7:35 PM) [id number]
--- NOTE | 2020-09-15 21:08 | RAD ---
Exam: CT neck chest without contrast INDICATION: Hyper salivation, sensation of something in throat TECHNIQUE: Sequential axial images through the neck and chest obtained without IV contrast. Sagittal and coronal reformatted images were reconstructed from the axial data and reviewed. Exposure: One or more of the following in the visualized dose reduction techniques were utilized for this examination: 1. Automated exposure control 2. Adjustment of the MA and/or KV according to patient size 3. Use of iterative of reconstructive technique Comparisons: None FINDINGS: NECK: Visualized intracranial structures are unremarkable. Globes and orbital contents are normal. Paranasa l sinuses and mastoid air cells are well-pneumatized. Nasopharynx, oropharynx and hypopharynx are unremarkable. Thyroid and salivary glands are unremarkable. No enlarged cervical lymph nodes are identified. No suspicious osseous lesions or acute fractures. CHEST: No enlarged mediastinal lymph nodes are identified. Trace pericardial effusion. Heart size is normal. Thoracic aorta has a normal course and caliber. Pul monary artery is not enlarged. Airways are patent. No consolidation or pneumothorax. Strandy opacities at the left lower lobe likely representing atelectasis. Small bilateral pleural effusions greater on the left. Visualized upper abdomen is unremarkable. No suspicious osseous lesions or acute fractures. IMPRESSION: 1. No abnormality identified at the neck. 2. Strandy opacities at the left lower lobe likely representing atelectasis. 3. Trace pericardial effusion. 4. Small bilateral pleural effusions greater on the left. Electronically signed by: Ann Mcbride MD (09/15/2020 9:06 PM) [facility]
[2020-09-15] MEDS: QUEtiapine 100 MG TABLET. PO SCH (21:26)
[2020-09-15] MEDS: PRAZOSIN 1 MG CAPSULE. PO SCH (21:26)
[2020-09-15] MEDS: DIVALPROEX ER 250 MG TAB.ER.24H. PO SCH (21:27)
[2020-09-15] MEDS: ATORVASTATIN CALCIUM 10 MG TABLET. PO SCH (21:27)
[2020-09-15] MEDS: MIRTAZAPINE 15 MG TABLET PO SCH (21:27)
[2020-09-15] MEDS: LORazepam 0.5 MG TABLET PO PRN (21:36)
--- NOTE | 2020-09-15 22:47 | PN ---
DATE: 09/15/2020 SUBJECTIVE: The patient is complaining of pain in the right side of the chest as well as right hip pain. Apparently he fell a few days ago, fall was unwitnessed according to nursing staff. PHYSICAL EXAMINATION: GENERAL: When I examined him, he looked pale. No jaundice, cyanosis or thyromegaly. No jugular venous distention. No limb edema. VITAL SIGNS: His heart rate was 92, blood pressure was 141/61, temperature was 97.9, respiratory rate was 18 and oxygen saturation was 97% on room air. HEAD, EYES, EARS, NOSE, AND THROAT: Normocephalic, atraumatic. NECK: Supple. HEART: Normal first and second heart sounds. No gallop, rub or murmur. CHEST: Showed central trachea, equal bilateral expansion, air entry, vesicular breath sounds. I could not appreciate any crepitation or rhonchi. There is marked tenderness of the right-sided chest wall anteriorly in the mid axillary line. ABDOMEN: Scaphoid, soft, nontender. NEUROLOGIC: He was demented, but without any obvious lateralizing sign. He did complain of pain in his right hip joint, although he is able to ambulate without assistance or assistive devices. His intake was 600. No output was recorded. ASSESSMENT: 1. Asymptomatic coronavirus infection that came back negative. 2. Hypertension. 3. Macular degeneration. 4. Sensorineural deafness. 5. Degenerative disk disease. 6. Fall with right-sided chest pain as well as right-sided hip pain. PLAN: Plan is to arrange for right-sided rib view and x-ray of the pelvis and right hip joint. Meanwhile continue with all his medication including psychotropic medication as recommended by the psychiatrist. ANGELIA DR: Jase TID: [id number]
--- NOTE | 2020-09-16 02:07 | NUR ---
Nursing note: Per dayshift RN, pt took PM meds at approx. 1800. Pt ambulated independently to another pt's room; when redirected, pt stated he was dizzy, and had started hypersalivating/clear discharge from eyes and nose. Pt said he felt like something was in his throat. Pt offered water, unable to swallow. CXR and soft tissue neck x ray ordered, both negative. This RN called Dr. Pappas, who ordered a stat CT neck/chest without contrast. Pt on O2 monitor satting above 90 unless attempting to clear airway with coughing, still unable to swallow water. Radiology and AGRONOMY PROFESSOR escorted pt to CT scan; when pt returned, coughing had decreased and pt able to swallow water without regurgitation but with some throat clearing/coughing; pt still stated he felt something was stuck in his throat. CT resulted negative, called results to Dr. Pappas. Reassessed swallowing; pt continued to cough/clear throat with water. Pt able to swallow pills in pudding as well as honey thick liquids at this time without difficulty.
[2020-09-16 06:00] VITALS: BP 108/49
[2020-09-16] MEDS: ASPIRIN CHEWABLE 81 MG TABLET. PO SCH (08:24)
[2020-09-16] MEDS: ACETAMINOPHEN 325 MG TABLET PO SCH ×2 (08:25→20:28)
[2020-09-16] MEDS: QUEtiapine 25 MG TABLET. PO SCH ×3 (08:26→16:19)
[2020-09-16] MEDS: MULTIVITAMIN with MINERAL TABLET. PO SCH (08:26)
[2020-09-16] MEDS: PANTOPRAZOLE 40 MG TABLET. PO SCH (08:26)
[2020-09-16] MEDS: POTASSIUM CHLORIDE 10 MEQ TABLET.ER. PO SCH (09:00)
[2020-09-16] MEDS: oxyCODONE/APAP 7.5/325 1 TAB TABLET PO PRN (16:16)
[2020-09-16] MEDS: SERTRALINE 100 MG TABLET. PO SCH (16:18)
[2020-09-16 19:23] VITALS: BP 111/69
[2020-09-16] MEDS: ATORVASTATIN CALCIUM 10 MG TABLET. PO SCH (20:27)
[2020-09-16] MEDS: QUEtiapine 100 MG TABLET. PO SCH (20:27)
[2020-09-16] MEDS: MIRTAZAPINE 15 MG TABLET PO SCH (20:28)
[2020-09-16] MEDS: DIVALPROEX ER 250 MG TAB.ER.24H. PO SCH (20:28)
[2020-09-16] MEDS: traZODone 50 MG TABLET. PO PRN (20:28)
[2020-09-16] MEDS: PRAZOSIN 1 MG CAPSULE. PO SCH (20:30)
--- NOTE | 2020-09-16 23:46 | PN ---
DATE: 09/16/2020 SUBJECTIVE: The patient is sitting at edge of the bed, eating his supper. He apparently continued to have difficulty swallowing. Last night, we did actually a CT scan of the soft tissue of the neck as well as CT scan of the chest. The CT scan soft tissue of the neck showed the visualized intracranial structures are unremarkable. Globes and orbital content are normal. Paranasal sinuses and mastoid air cells are well pneumatized. Nasopharynx, oropharynx, hypopharynx are unremarkable. Thyroid and salivary glands are unremarkable. No enlarged cervical lymph nodes are identified. No suspicious osseous lesions or acute fracture. Chest CT showed no enlarged mediastinal lymph nodes are identified. Trace pericardial effusion. Heart size is normal. The thoracic aorta has a normal course and caliber. Pulmonary artery is not enlarged. The airways are patent. No consolidation or pneumothorax. Strandy opacities at the left lower lobe, likely representing atelectasis. He has also small bilateral pleural effusion, greater on the left. Visualized upper abdomen is unremarkable. With the impression that there is no abnormality identified at the neck, his diet was changed to a pureed honey thickened diet and we will consult the speech therapist to evaluate and to do a bedside or video swallowing evaluation. We did also x-rays of his right hip and rib views and right-sided rib view shows no acute right rib fractures and x-ray of the pelvis and right hip showed no evidence of acute fracture or dislocation or lytic process is seen. No diastasis of the symphysis pubis or sacroiliac joint is evident. PHYSICAL EXAMINATION: GENERAL: When I examined him, he looked pale, but no jaundice, cyanosis, no lymphadenopathy, no thyromegaly, no jugular venous distention. No lower limb edema. VITAL SIGNS: His heart rate was 91, blood pressure was 108/49, temperature 97.5, respiratory rate was 16, and oxygen saturation was 96% on room air. The rest of clinical exam stable. LABORATORY DATA: His labs are stable. Images have already been alluded to. ASSESSMENT: 1. Asymptomatic coronavirus that came back negative. 2. Hypertension. 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 5. Degenerative disk disease. 6. Fall with right-sided chest pain as well as right hip pain. Right-sided rib view on the right hip joint x-rays are negative for any fracture or dislocation. JIL/MAIK DR: Jase TID: [id number]
[2020-09-17] MEDS: LORazepam 0.5 MG TABLET PO PRN (00:04)
[2020-09-17] MEDS ORDERED: QUET100T4 PO (04:29)
[2020-09-17 06:18] VITALS: BP 133/85
[2020-09-17] MEDS: ASPIRIN CHEWABLE 81 MG TABLET. PO SCH (08:28)
[2020-09-17] MEDS: PANTOPRAZOLE 40 MG TABLET. PO SCH (08:28)
[2020-09-17] MEDS: QUEtiapine 25 MG TABLET. PO SCH (08:28)
[2020-09-17] MEDS: MULTIVITAMIN with MINERAL TABLET. PO SCH (08:28)
[2020-09-17] MEDS: ACETAMINOPHEN 325 MG TABLET PO SCH (08:29)
--- NOTE | 2020-09-17 13:35 | NUR ---
DISCHARGE PT TRANSPORTED UP TO [facility] UPON DISCHARGE FOR INPATIENT STAY IN THAT DEPARTMENT. HE IS ALERT, AMBULATORY, ET NOT RELIANT ON OXYGEN. HE IS ALERT TO SELF ONLY, CONFUSED TO ALL OTHER. REPORT CALLED TO LUCY MONTEMAYOR
== END 2020-09-17 13:35 | DRG 178 ==
LOC: LND 19:32
PROVIDERS: ADMIT Hospitalist; ATTEND Hospitalist
DX: U07.1 COVID-19 (principal); F03.91 Unspecified dementia, unspecified severity, with behavioral disturbance; J98.11 Atelectasis; H54.8 Legal blindness, as defined in USA; I10 Essential (primary) hypertension; N40.0 Benign prostatic hyperplasia without lower urinary tract symptoms; M19.90 Unspecified osteoarthritis, unspecified site; H35.30 Unspecified macular degeneration; H90.5 Unspecified sensorineural hearing loss; R13.10 Dysphagia, unspecified
CPT/HCPCS: 36415; 70360; 70490; 71101; 71250; 73502; 80048; 80053; 82947; 85025; 85379; 86140; U0003; U0005

== ENCOUNTER 2020-09-17 13:40 | Inpatient (IN) | payer MEDICARE ==
[~2020-09-17] VITALS: Ht 170.2 cm; Wt 57.3 kg
[~2020-09-17 13:40] MED LIST changes: +QUET100T4 PO
[2020-09-17] MEDS ORDERED: METHYL SALICYLATE/MENTHOL TOPICAL OINTMENT 57GM TUBE. TP PRN (15:30)
[2020-09-17] MEDS ORDERED: MAG HYDROX/AL HYDROX/SIMETH 30 ML ORAL.SUSP PO PRN (15:30)
[2020-09-17] MEDS ORDERED: ACETAMINOPHEN 325 MG TABLET PO PRN ×2 (15:30→16:15)
[2020-09-17 15:59] LABS: BASO # 0.1 x10^3/uL (0.0-0.2); BASO % 1 % (0-3); EOS # 0.8 x10^3/uL (0.0-0.7); EOS % 7 % (0-3); HEMATOCRIT 34.5 % (39.0-53.0); HEMOGLOBIN 11.1 g/dL (13.0-17.5); LYMPH # 0.9 x10^3/uL (1.0-4.8); LYMPH % 8 % (24-48); MEAN CORPUSCULAR HEMOGLOBIN 29 pg (25-35); MEAN CORPUSCULAR HGB CONC 32 g/dL (31-37); MEAN CORPUSCULAR VOLUME 89 fL (79-100); MONO # 1.3 x10^3/uL (0.0-1.1); MONO % 12 % (0-9); NEUT # 8.2 x10^3uL (1.8-7.7); NEUT % 73 % (31-73); PLATELET COUNT 243 x10^3/uL (140-400); RED BLOOD COUNT 3.85 x10^6/uL (4.30-5.70); RED CELL DISTRIBUTION WIDTH 16.1 % (11.5-14.5); WHITE BLOOD COUNT 11.3 x10^3/uL (4.0-11.0)
[2020-09-17 16:01] VITALS: BP 132/66
--- NOTE | 2020-09-17 16:05 | NUR ---
Admission Note with Justification for Admission to [facility] Patient admitted to [facility] for protective oversight for emergency stabilization of acute psychiatric crisis. Pt admitted from: SNF Mode of arrival: Wheel chair with staff Accompanied By: [facility] Staff Precipitating behaviors that initiated intake and admission: Pt continuing his stay for multiple behaviors from the skilled unit stay. Pt is intermittently combative and confused. Description of failure of out patient attempts at stabilization in previous setting list behavior and medication trials: Med adjustments and modifications. Behaviors and assessment findings upon admission: Pt pleasant and cooperative so far. Delusional and thinks he is having a knee replacement. Plan: Admit for protective oversight for adjustment and stabilization of medications, behaviors and mood. Intense treatment regimen including groups, medication adjustments, therapy, consistent regimen for ADL's, self care, and sleep hygiene. Daily monitoring by Inpatient staff, Psychiatry, and Medical Physician.
[2020-09-17] MEDS ORDERED: QUEtiapine 50 MG TABLET. PO PRN (16:15)
[2020-09-17] MEDS ORDERED: POLYVINYL ALCOHOL 1.4% OPHTH SOLUTION 15ML BOTTLE. OU PRN (16:15)
[2020-09-17] MEDS ORDERED: DICLOFENAC SODIUM 1% TOPICAL GEL 100GM TUBE. TP PRN (16:15)
[2020-09-17] MEDS ORDERED: BISACODYL 10 MG SUPP.RECT RC PRN (16:15)
[2020-09-17 16:17] LABS: ALBUMIN 3.1 g/dL (3.4-5.0); ALBUMIN/GLOBULIN RATIO 0.8 (1.0-1.7); CALCIUM 8.5 mg/dL (8.5-10.1); GFR 72.5; MAGNESIUM 2.2 mg/dL (1.8-2.4); POTASSIUM 4.1 mmol/L (3.5-5.1); TOTAL BILIRUBIN 0.6 mg/dL (0.2-1.0); TOTAL PROTEIN 6.9 g/dL (6.4-8.2)
[2020-09-17] MEDS ORDERED: LOPERAMIDE 2 MG CAPSULE PO PRN (16:30)
[2020-09-17] MEDS: SERTRALINE 100 MG TABLET. PO SCH (18:30)
[2020-09-17] MEDS: QUEtiapine 25 MG TABLET. PO SCH (18:31)
[2020-09-17] MEDS: ATORVASTATIN CALCIUM 10 MG TABLET. PO SCH (19:41)
[2020-09-17] MEDS: QUEtiapine 100 MG TABLET. PO SCH (19:41)
[2020-09-17] MEDS: MIRTAZAPINE 15 MG TABLET PO SCH (19:41)
[2020-09-17] MEDS: PRAZOSIN 1 MG CAPSULE. PO SCH (19:41)
[2020-09-17] MEDS: ACETAMINOPHEN 325 MG TABLET PO SCH (19:41)
[2020-09-17] MEDS: DIVALPROEX ER 250 MG TAB.ER.24H. PO SCH (19:41)
[2020-09-17] MEDS: traZODone 50 MG TABLET. PO PRN (19:41)
--- NOTE | 2020-09-17 21:55 | PDOC ---
Exam Note: Raman Note: Please also refer to the separate dictated note~for this date of service dictated separately.~Patient seen individually. Discussed the patient with Nursing staff reviewed the chart.~Reviewed interim history and current functioning. Reviewed vital signs,~Labs/ Radiology~and current medications noted below. Continue current treatment with the changes noted in the dictated addendum note Assessment: Vital Signs/I&O: Vital Signs Date Time Temp Pulse Resp B/P (MAP) Pulse Ox O2 Delivery O2 Flow Rate FiO2 09/17/20 19:41 88 132/66 09/17/20 16:01 97.2 18 95 Labs: Laboratory Tests Test 09/17/20 15:41 White Blood Count 11.3 x10^3/uL (4.0-11.0) H Red Blood Count 3.85 x10^6/uL (4.30-5.70) L Hemoglobin 11.1 g/dL (13.0-17.5) L Hematocrit 34.5 % (39.0-53.0) L Mean Corpuscular Volume 89 fL (79-100) Mean Corpuscular Hemoglobin 29 pg (25-35) Mean Corpuscular Hemoglobin Concent 32 g/dL (31-37) Red Cell Distribution Width 16.1 % (11.5-14.5) H Platelet Count 243 x10^3/uL (140-400) Neutrophils (%) (Auto) 73 % (31-73) Lymphocytes (%) (Auto) 8 % (24-48) L Monocytes (%) (Auto) 12 % (0-9) H Eosinophils (%) (Auto) 7 % (0-3) H Basophils (%) (Auto) 1 % (0-3) Neutrophils # (Auto) 8.2 x10^3uL (1.8-7.7) H Lymphocytes # (Auto) 0.9 x10^3/uL (1.0-4.8) L Monocytes # (Auto) 1.3 x10^3/uL (0.0-1.1) H Eosinophils # (Auto) 0.8 x10^3/uL (0.0-0.7) H Basophils # (Auto) 0.1 x10^3/uL (0.0-0.2) Sodium Level 143 mmol/L (136-145) Potassium Level 4.1 mmol/L (3.5-5.1) Chloride Level 106 mmol/L (98-107) Carbon Dioxide Level 29 mmol/L (21-32) Anion Gap 8 (6-14) Blood Urea Nitrogen 39 mg/dL (8-26) H Creatinine 1.0 mg/dL (0.7-1.3) Estimated GFR (Cockcroft-Gault) 72.5 BUN/Creatinine Ratio 39 (6-20) H Glucose Level 107 mg/dL (70-99) H Calcium Level 8.5 mg/dL (8.5-10.1) Magnesium Level 2.2 mg/dL (1.8-2.4) Total Bilirubin 0.6 mg/dL (0.2-1.0) Aspartate Amino Transferase (AST) 19 U/L (15-37) Alanine Aminotransferase (ALT) 27 U/L (16-63) Alkaline Phosphatase 64 U/L (46-116) Total Protein 6.9 g/dL (6.4-8.2) Albumin 3.1 g/dL (3.4-5.0) L Albumin/Globulin Ratio 0.8 (1.0-1.7) L Current Medications: Meds: Current Medications Medications (Trade) Dose Ordered Sig/Abundio Route PRN Reason Start Time Stop Time Status Last Admin Dose Admin Acetaminophen (Tylenol) 650 mg BID PO 09/17/20 21:00 09/17/20 19:41 Atorvastatin Calcium (Lipitor) 10 mg QHS PO 09/17/20 21:00 09/17/20 19:41 Divalproex Sodium (Depakote Er) 750 mg QHS PO 09/17/20 21:00 09/17/20 19:41 Mirtazapine (Remeron) 15 mg QHS PO 09/17/20 21:00 09/17/20 19:41 Prazosin HCl (Minipress) 3 mg QHS PO 09/17/20 21:00 09/17/20 19:41 Quetiapine Fumarate (SEROquel) 37.5 mg 0900,1300,1700 PO 09/17/20 17:00 09/17/20 18:31 Quetiapine Fumarate (SEROquel) 100 mg QHS PO 09/17/20 21:00 09/17/20 19:41 Sertraline HCl (Zoloft) 100 mg DAILY@1700 PO 09/17/20 17:00 09/17/20 18:30 Trazodone HCl (Desyrel) 50 mg PRN QHS PRN PO INSOMNIA, MAY REPEAT X1 09/17/20 16:15 09/17/20 19:41 I have reviewed the current psychotropics carefully including drug interactions. Risk benefit ratio favors no change other than as noted in my dictated progress note. Diagnosis: Problems: (1) Impulse control disorder, unspecified (2) Anxiety disorder, unspecified (3) Dementia, vascular, with depression (4) Dementia, vascular, with delusions (5) Dementia in Alzheimer's disease with depression (6) Dementia in Alzheimer's disease with delusions (7) Dementia of the Alzheimer's type with early onset with behavioral disturbance (8) Major neurocognitive disorder (9) PTSD (post-traumatic stress disorder) DUANE NINO MD Sep 17, 2020 21:55
--- NOTE | 2020-09-17 22:57 | NUR ---
Pt wandering in the hallway when approached. Pt calm, confused, disorganized, and restless. Pt cooperative with assessment and compliant with medications administered whole. No agitation, aggression, or delusions noted thus far this shift.
[2020-09-18 05:52] VITALS: BP 105/61
[2020-09-18] MEDS: ASPIRIN CHEWABLE 81 MG TABLET. PO SCH (08:12)
[2020-09-18] MEDS: QUEtiapine 25 MG TABLET. PO SCH ×3 (08:13→16:07)
[2020-09-18] MEDS: ACETAMINOPHEN 325 MG TABLET PO SCH ×2 (08:13→20:01)
[2020-09-18] MEDS: PANTOPRAZOLE 40 MG TABLET. PO SCH (08:13)
[2020-09-18] MEDS: MULTIVITAMIN with MINERAL TABLET. PO SCH (08:14)
[2020-09-18] MEDS: oxyCODONE/APAP 7.5/325 1 TAB TABLET PO PRN (08:14)
--- NOTE | 2020-09-18 08:46 | NUR ---
PSYCHOSOCIAL ASSESSMENT RE-ADMISSION DATE: 09/17/20 CONTACT INFORMATION: DPOA/Guardian Contact Name: Heidy Kika- Contact Address: [address] [place] [id number] Contact Phone #: [phone] ETHNIC ORIGIN: REASONS FOR ADMISSION: Aggressive Agitated Angry Combative Confusion/Disoriented Poor impulse control Sig. Change Appetite Sig. Change Sleep ADDITIONAL ADMISSION COMMENTS: Per intake record, increased agitation, physically aggressive towards staff, swings cane at staff, inconsistent with taking medications, wandering. REASON FOR ADMISSION IN PATIENT/FAMILY'S OWN WORDS: As noted above. PATIENT/FAMILY EXPECTATIONS FOR ADMISSION: Per Heidy, "for Eric to be at peace, to be able to sleep at night, and eat more." LIVING SITUATION: Patient lives with: Memory Care Other living arrangements: [facility] Contact Name: Caryl Contact Address: [address] [address] Contact Phone #: [phone] Contact Fax #: [phone] FAMILY RELATIONS: Marital Status: # of Marriages: 1 # of Children: 2 [facility] Family Support: Concerned Cooperative Additional Comments r/t Family: Eric and Heidy have been for 55 years. They have tow children, Erna ([facility]) and Josefa ([facility]). Eric reported his marriage to be "very good." They have two grandchildren, Leilani and Oumou. SIGNIFICANT PSYCHIATRIC/MEDICAL HISTORY: Psychiatric/Treatment History: Eric had out patient appointments at the [facility] for PTSD. Eric was dx with dementia around 4 years ago. Pertinent Family History: Eric has a brother that has memory impairment. HISTORICAL DATA: Childhood Environment: [place] [facility] Environment Additional Comments: Eric was born in [place] to Cristian and Libby Kika. 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 Libby was a homemaker. Eric was the seventh child born of 11. Eric appeared to have fond memories of his family and shared stories about his brothers. While the family was poor, Eric reported them as loving. 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 He retired in 2003. service: [employer]- drafted into [place] War, served two years Uatsdin background: Eric is of the Scientologist ralph. Sexual orientation: Heterosexual Educational Level: Eric graduated high school and attended some college. Past/Present Interests/Hobbies: Eric has enjoyed fly fishing, hunting (deer/elk/rabbits), horse riding, and walking with his . Financial support/resources: Half-Way/Pension [place] Benefits Monthly income: Unknown Person handling finances: Heidy- Do you have a history of legal problems: None reported Cultural considerations: None reported SOCIAL RELATIONSHIPS-CURRENT/PAST: [facility]rist[facility], in the past PCP: Dr. Harry Samson Counselor/Therapist: None Veterans[employer] Administration: 100% service connected Support Group: None X Ray Inspector/Skin Piler: Jackelyn LÓPEZ Other relationships: Support from and children STRENGTHS & WEAKNESSES: Patient's strengths: Good family support Stable living arrange Ambulatory Patient's weaknesses: Impulsive Health problems Physically Aggressive PRELIMINARY PLAN OF TREATMENT: Preliminary plan: Medication Stabilization Monitor Med Effects Control abnormal behavior Dec. Outbursts Dec. Aggression Other preliminary treatment comments: Eric will be invited to attend recreational therapy and SW groups while hospitalized. DISCHARGE PLANNING: Discharge planning/disposition: Memory Care Additional discharge needs identified: Out patient psychiatry if available ADDITIONAL INFORMATION: Other Pertinent Data: Eric was re-admitted to [facility] on 09/17/20 after testing positive for Covid and being transferred to swing bed unit for ten day quarantine. Eric continued to have aggressive behaviors while on swing bed unit therefore was transferred back to [facility] for treatment following quarantine. SW contacted Eric's POA/ on 09/17/20 and completed new consents. Eric's and daughter will be involved in team meeting via phone on 09/20/20.
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
[2020-09-18] MEDS: SERTRALINE 100 MG TABLET. PO SCH (16:12)
[2020-09-18 16:14] VITALS: BP 103/66
[2020-09-18] MEDS: QUEtiapine 100 MG TABLET. PO SCH (20:01)
[2020-09-18] MEDS: DIVALPROEX ER 250 MG TAB.ER.24H. PO SCH (20:02)
[2020-09-18] MEDS: PRAZOSIN 1 MG CAPSULE. PO SCH (20:03)
[2020-09-18] MEDS: MIRTAZAPINE 15 MG TABLET PO SCH (20:03)
[2020-09-18] MEDS: ATORVASTATIN CALCIUM 10 MG TABLET. PO SCH (20:08)
--- NOTE | 2020-09-18 21:57 | PDOC ---
Exam Note: Raman Note: Please also refer to the separate dictated note~for this date of service dictated separately.~Patient seen individually. Discussed the patient with Nursing staff reviewed the chart.~Reviewed interim history and current functioning. Reviewed vital signs,~Labs/ Radiology~and current medications noted below. Continue current treatment with the changes noted in the dictated addendum note Assessment: Vital Signs/I&O: Vital Signs Date Time Temp Pulse Resp B/P (MAP) Pulse Ox O2 Delivery O2 Flow Rate FiO2 09/18/20 20:03 80 103/66 09/18/20 16:14 97.0 16 97 09/18/20 05:52 Room Air I & O 09/17/20 09/17/20 09/18/20 15:00 23:00 07:00 Intake Total 720 ml Balance 720 ml Current Medications: Meds: Current Medications Medications (Trade) Dose Ordered Sig/Abundio Route PRN Reason Start Time Stop Time Status Last Admin Dose Admin Acetaminophen (Tylenol) 650 mg PRN Q6HRS PRN PO MILD PAIN / TEMP > 100.3'F 09/17/20 15:30 Multi-Ingredient Ointment (Analgesic Rincon) 1 will PRN QID PRN TP MUSCLE PAIN 09/17/20 15:30 Al Hydroxide/Mg Hydroxide (Mylanta Plus Xs) 15 ml PRN AFTMEALHC PRN PO DYSPEPSIA 09/17/20 15:30 Magnesium Hydroxide (Milk Of Magnesia) 2,400 mg PRN QHS PRN PO CONSTIPATION 09/17/20 15:30 Acetaminophen (Tylenol) 650 mg BID PO 09/17/20 21:00 09/18/20 20:01 Acetaminophen (Tylenol) 650 mg PRN Q6HRS PRN PO PAIN 09/17/20 16:15 Aspirin (Aspirin Chewable) 81 mg DAILY PO 09/18/20 09:00 09/18/20 08:12 Atorvastatin Calcium (Lipitor) 10 mg QHS PO 09/17/20 21:00 09/18/20 20:08 Bisacodyl (Dulcolax Supp) 10 mg PRN DAILY PRN RC CONSTIPATION 09/17/20 16:15 Diclofenac Sodium (Voltaren) 1 will PRN Q8HRS PRN TP MUSCLE PAIN 09/17/20 16:15 Divalproex Sodium (Depakote Er) 750 mg QHS PO 09/17/20 21:00 09/18/20 20:02 Lorazepam (Ativan) 0.5 mg PRN BID PRN PO ANXIETY 09/17/20 16:15 Mirtazapine (Remeron) 15 mg QHS PO 09/17/20 21:00 09/18/20 20:03 Olanzapine (ZyPREXA ZYDIS) 2.5 mg PRN Q2HR PRN PO ANXIETY / AGITATION 09/17/20 16:15 Oxycodone/ Acetaminophen (Percocet 7.5/ 325) 1 tab PRN Q8HRS PRN PO PAIN 09/17/20 16:15 09/18/20 08:14 Artificial Tears (Artificial Tears) 1 drop PRN Q15MIN PRN OU DRY EYE 09/17/20 16:15 Prazosin HCl (Minipress) 3 mg QHS PO 09/17/20 21:00 09/18/20 20:03 Quetiapine Fumarate (SEROquel) 37.5 mg 0900,1300,1700 PO 09/17/20 17:00 09/18/20 16:07 Quetiapine Fumarate (SEROquel) 50 mg PRN DAILY PRN PO ANXIETY / AGITATION 09/17/20 16:15 Quetiapine Fumarate (SEROquel) 100 mg QHS PO 09/17/20 21:00 09/18/20 20:01 Sertraline HCl (Zoloft) 100 mg DAILY@1700 PO 09/17/20 17:00 09/18/20 16:12 Trazodone HCl (Desyrel) 50 mg PRN QHS PRN PO INSOMNIA, MAY REPEAT X1 09/17/20 16:15 09/17/20 19:41 Loperamide HCl (Imodium) 2 mg PRN Q15MIN PRN PO DIARRHEA 09/17/20 16:30 Multivitamins/ Calcium (Thera-M Plus) 1 tab DAILY PO 09/18/20 09:00 09/18/20 08:14 Pantoprazole Sodium (Protonix) 40 mg DAILYAC PO 09/18/20 07:30 09/18/20 08:13 Potassium Chloride (Klor-Con) 10 meq QODAY PO 09/19/20 09:00 Current Medications Medications (Trade) Dose Ordered Sig/Abundio Route PRN Reason Start Time Stop Time Status Last Admin Dose Admin Aspirin (Aspirin Chewable) 81 mg DAILY PO 09/18/20 09:00 09/18/20 08:12 Multivitamins/ Calcium (Thera-M Plus) 1 tab DAILY PO 09/18/20 09:00 09/18/20 08:14 Pantoprazole Sodium (Protonix) 40 mg DAILYAC PO 09/18/20 07:30 09/18/20 08:13 I have reviewed the current psychotropics carefully including drug interactions. Risk benefit ratio favors no change other than as noted in my dictated progress note. Diagnosis: Problems: (1) Impulse control disorder, unspecified (2) PTSD (post-traumatic stress disorder) (3) Anxiety disorder, unspecified (4) Dementia, vascular, with depression (5) Dementia, vascular, with delusions (6) Dementia in Alzheimer's disease with depression (7) Dementia in Alzheimer's disease with delusions (8) Dementia of the Alzheimer's type with early onset with behavioral disturbance (9) Major neurocognitive disorder DUANE NINO MD Sep 18, 2020 21:57
--- NOTE | 2020-09-18 22:30 | HP ---
ADMIT DATE: 09/17/2020 PSYCHIATRIC ADMISSION HISTORY/EVALUATION This late entry date of service 09/17/2020, covers elements not covered in my initial note 09/17/2020. IDENTIFYING DATA: The patient is a 79-year-old male who was initially admitted to us from [facility] on account of worsening confusion within the context of his dementia, Alzheimer's vascular type with combative, agitated behaviors and disruptive behaviors that are unmanageable and dangerous at the nursing facility. He had failed outpatient psychiatric intervention. He was being medically stabilized on a unit and then turned up COVID positive and was transitioned to isolation unit on the medical/surgical floor. Once he was medically stabilized, behaviors persisted along with the confusion and he is referred back to us being readmitted on 09/17/2020 for further psychiatric stabilization. CHIEF COMPLAINT: "I'm okay." The patient was evaluated on Telehealth services on 09/17/2020 for this evaluation. HISTORY OF PRESENT ILLNESS: The patient has a history of dementia and Alzheimer's, vascular type. He has been residing at the above facility for some time recently getting more agitated, paranoid, delusional, aggressive, disruptive, and sleep and appetite changes. No clear history of bipolar disorder, though he does have a positive history of posttraumatic stress disorder. He had been combative, agitated, delusional on the isolation unit medical/surgical floor and therefore readmitted for stabilization. PAST PSYCHIATRIC HISTORY: As above. MEDICAL HISTORY: Hypertension, PTSD, blind in one eye, gastritis, status post CVA, hypokalemia. CODE STATUS: DNR. ALLERGIES: Negative. Ambulates independently. CURRENT PSYCHOTROPICS: MRAD was reviewed. He is currently on Seroquel 37.5 mg 3 times a day, 100 mg at bedtime and 50 mg p.r.n. daily, prazosin 3 mg at bedtime, Remeron 15 mg at bedtime, Depakote ER 750 mg at bedtime. Valproic acid level 720 was 50 on this dosage. Zoloft 100 mg a day, trazodone at bedtime p.r.n., Ativan p.r.n. Zyprexa p.r.n. FAMILY HISTORY: Noncontributory. SOCIAL HISTORY: No history of alcohol, drug abuse, physical, sexual elder abuse history is noted. Not known to be a perpetrator. REACTION TO HOSPITALIZATION: The patient oblivious of this. ASSETS: Supportive living at the above facility. IMPRESSION: Major neurocognitive disorder, Alzheimer vascular with delusion, depression, behavioral disturbance, anxiety disorder, unspecified; impulse control disorder, unspecified. UA has been collected to rule out urinary tract infection. Rest diagnoses unchanged. PLAN: Admit to Geropsychiatry Unit at [facility]. I will see the patient daily individually from a psychiatric standpoint; medical followup, Dr. Pappas/Dr. Weber. Continue patient on his current psychotropics. Observe baseline. Adjust further as clinically indicated. ESTIMATED LENGTH OF STAY: 7 to 10 days. DISPOSITION PLANS: Back to skilled nursing when stable. SHEILA DR: Judd TID: [id number]
[2020-09-19] MEDS: oxyCODONE/APAP 7.5/325 1 TAB TABLET PO PRN (01:35)
[2020-09-19 05:42] VITALS: BP 146/76
--- NOTE | 2020-09-19 06:15 | NUR ---
Eric spent the evening in the dayroom watching a movie, visits briefly with staff; takes all PO medications whole without difficulty; at 0135 PRN Percocet given for c/o generalized pain, sleeping soundly with no apparent distress within 30-40 min of administration; VSS; no noted behaviors or concerns as of this writing; continues resting in bed at present with no voiced needs at this time.
--- NOTE | 2020-09-19 06:51 | PDOC ---
Exam Note: Raman Note: This note is a late entry for 09/18/2020overs elements not covered in my initial note. Subjective: The patient was seen face to face in the evening of 09/18/2020 with Disha MONTEMAYOR, discussed and reviewed the chart. The patient slept 6-1/2 hours previous night. He remains confused. He was seated in the dayroom watching a movie but oblivious of what he was watching. He was pleasant, smiling as I met with him. Review of Systems: No CV, , pulmonary, eye system symptoms on review. Reliability poor. Mental Status Exam: The patient is oriented to himself. Insight and judgment, recent and remote memory, attention and concentration is poor consistent with hir diagnoses. Laboratory Data: Reviewed. Impression: Major neurocognitive disorder Alzheimer vascular with delusion, depression, and behavioral disturbance. Anxiety disorder unspecified. Impulse control disorder unspecified. Plan: Continue current psychotropics Seroquel, Prazosin, Remeron, Depakote, Zoloft, trazodone along with Zyprexa and Ativan p.r.n. Adjust further as clinically indicated. Assessment: Vital Signs/I&O: Vital Signs Date Time Temp Pulse Resp B/P (MAP) Pulse Ox O2 Delivery O2 Flow Rate FiO2 09/19/20 05:42 98.1 94 16 146/76 (99) 97 Room Air I & O 09/18/20 09/18/20 09/19/20 15:00 23:00 07:00 Intake Total 960 ml 480 ml Balance 960 ml 480 ml Current Medications: Meds: Current Medications Medications (Trade) Dose Ordered Sig/Abundio Route PRN Reason Start Time Stop Time Status Last Admin Dose Admin Acetaminophen (Tylenol) 650 mg PRN Q6HRS PRN PO MILD PAIN / TEMP > 100.3'F 09/17/20 15:30 Multi-Ingredient Ointment (Analgesic [place]) 1 will PRN QID PRN TP MUSCLE PAIN 09/17/20 15:30 Al Hydroxide/Mg Hydroxide (Mylanta Plus Xs) 15 ml PRN AFTMEALHC PRN PO DYSPEPSIA 09/17/20 15:30 Magnesium Hydroxide (Milk Of Magnesia) 2,400 mg PRN QHS PRN PO CONSTIPATION 09/17/20 15:30 Acetaminophen (Tylenol) 650 mg BID PO 09/17/20 21:00 09/18/20 20:01 Acetaminophen (Tylenol) 650 mg PRN Q6HRS PRN PO PAIN 09/17/20 16:15 Aspirin (Aspirin Chewable) 81 mg DAILY PO 09/18/20 09:00 09/18/20 08:12 Atorvastatin Calcium (Lipitor) 10 mg QHS PO 09/17/20 21:00 09/18/20 20:08 Bisacodyl (Dulcolax Supp) 10 mg PRN DAILY PRN RC CONSTIPATION 09/17/20 16:15 Diclofenac Sodium (Voltaren) 1 will PRN Q8HRS PRN TP MUSCLE PAIN 09/17/20 16:15 Divalproex Sodium (Depakote Er) 750 mg QHS PO 09/17/20 21:00 09/18/20 20:02 Lorazepam (Ativan) 0.5 mg PRN BID PRN PO ANXIETY 09/17/20 16:15 Mirtazapine (Remeron) 15 mg QHS PO 09/17/20 21:00 09/18/20 20:03 Olanzapine (ZyPREXA ZYDIS) 2.5 mg PRN Q2HR PRN PO ANXIETY / AGITATION 09/17/20 16:15 Oxycodone/ Acetaminophen (Percocet 7.5/ 325) 1 tab PRN Q8HRS PRN PO PAIN 09/17/20 16:15 09/19/20 01:35 Artificial Tears (Artificial Tears) 1 drop PRN Q15MIN PRN OU DRY EYE 09/17/20 16:15 Prazosin HCl (Minipress) 3 mg QHS PO 09/17/20 21:00 09/18/20 20:03 Quetiapine Fumarate (SEROquel) 37.5 mg 0900,1300,1700 PO 09/17/20 17:00 09/18/20 16:07 Quetiapine Fumarate (SEROquel) 50 mg PRN DAILY PRN PO ANXIETY / AGITATION 09/17/20 16:15 Quetiapine Fumarate (SEROquel) 100 mg QHS PO 09/17/20 21:00 09/18/20 20:01 Sertraline HCl (Zoloft) 100 mg DAILY@1700 PO 09/17/20 17:00 09/18/20 16:12 Trazodone HCl (Desyrel) 50 mg PRN QHS PRN PO INSOMNIA, MAY REPEAT X1 09/17/20 16:15 09/17/20 19:41 Loperamide HCl (Imodium) 2 mg PRN Q15MIN PRN PO DIARRHEA 09/17/20 16:30 Multivitamins/ Calcium (Thera-M Plus) 1 tab DAILY PO 09/18/20 09:00 09/18/20 08:14 Pantoprazole Sodium (Protonix) 40 mg DAILYAC PO 09/18/20 07:30 09/18/20 08:13 Potassium Chloride (Klor-Con) 10 meq QODAY PO 09/19/20 09:00 Current Medications Medications (Trade) Dose Ordered Sig/Abundio Route PRN Reason Start Time Stop Time Status Last Admin Dose Admin Aspirin (Aspirin Chewable) 81 mg DAILY PO 09/18/20 09:00 09/18/20 08:12 Multivitamins/ Calcium (Thera-M Plus) 1 tab DAILY PO 09/18/20 09:00 09/18/20 08:14 Pantoprazole Sodium (Protonix) 40 mg DAILYAC PO 09/18/20 07:30 09/18/20 08:13 I have reviewed the current psychotropics carefully including drug interactions. Risk benefit ratio favors no change other than as noted in my dictated progress note. Diagnosis: Problems: (1) Impulse control disorder, unspecified (2) Anxiety disorder, unspecified (3) Dementia, vascular, with depression (4) Dementia, vascular, with delusions (5) Dementia in Alzheimer's disease with depression (6) Dementia in Alzheimer's disease with delusions (7) Dementia of the Alzheimer's type with early onset with behavioral disturbance (8) Major neurocognitive disorder DUANE NINO MD Sep 19, 2020 06:51
[2020-09-19] MEDS: ASPIRIN CHEWABLE 81 MG TABLET. PO SCH (09:21)
[2020-09-19] MEDS: MULTIVITAMIN with MINERAL TABLET. PO SCH (09:21)
[2020-09-19] MEDS: QUEtiapine 25 MG TABLET. PO SCH ×3 (09:21→17:32)
[2020-09-19] MEDS: ACETAMINOPHEN 325 MG TABLET PO SCH ×2 (09:22→20:06)
[2020-09-19] MEDS: PANTOPRAZOLE 40 MG TABLET. PO SCH (09:22)
[2020-09-19] MEDS: POTASSIUM CHLORIDE 10 MEQ TABLET.ER. PO SCH (09:25)
--- NOTE | 2020-09-19 14:38 | NUR ---
Nursing note Patient has had an uneventful shift, medication compliant and withdrawn to room. No acute events.
[2020-09-19 16:08] VITALS: BP 107/70
[2020-09-19] MEDS: SERTRALINE 100 MG TABLET. PO SCH (17:33)
[2020-09-19] MEDS: DIVALPROEX ER 250 MG TAB.ER.24H. PO SCH (20:05)
[2020-09-19] MEDS: ATORVASTATIN CALCIUM 10 MG TABLET. PO SCH (20:06)
[2020-09-19] MEDS: PRAZOSIN 1 MG CAPSULE. PO SCH (20:06)
[2020-09-19] MEDS: QUEtiapine 100 MG TABLET. PO SCH (20:06)
[2020-09-19] MEDS: MIRTAZAPINE 15 MG TABLET PO SCH (20:07)
--- NOTE | 2020-09-19 21:57 | PDOC ---
Exam Note: Raman Note: Please also refer to the separate dictated note~for this date of service dictated separately.~Patient seen individually. Discussed the patient with Nursing staff reviewed the chart.~Reviewed interim history and current functioning. Reviewed vital signs,~Labs/ Radiology~and current medications noted below. Continue current treatment with the changes noted in the dictated addendum note Assessment: Vital Signs/I&O: Vital Signs Date Time Temp Pulse Resp B/P (MAP) Pulse Ox O2 Delivery O2 Flow Rate FiO2 09/19/20 20:06 106 107/70 09/19/20 16:08 97.0 20 93 09/19/20 05:42 Room Air I & O 09/18/20 09/18/20 09/19/20 14:59 22:59 06:59 Intake Total 960 ml 480 ml Balance 960 ml 480 ml Current Medications: Meds: Current Medications Medications (Trade) Dose Ordered Sig/Abundio Route PRN Reason Start Time Stop Time Status Last Admin Dose Admin Acetaminophen (Tylenol) 650 mg PRN Q6HRS PRN PO MILD PAIN / TEMP > 100.3'F 09/17/20 15:30 Multi-Ingredient Ointment (Analgesic [place]) 1 will PRN QID PRN TP MUSCLE PAIN 09/17/20 15:30 Al Hydroxide/Mg Hydroxide (Mylanta Plus Xs) 15 ml PRN AFTMEALHC PRN PO DYSPEPSIA 09/17/20 15:30 Magnesium Hydroxide (Milk Of Magnesia) 2,400 mg PRN QHS PRN PO CONSTIPATION 09/17/20 15:30 Acetaminophen (Tylenol) 650 mg BID PO 09/17/20 21:00 09/19/20 20:06 Acetaminophen (Tylenol) 650 mg PRN Q6HRS PRN PO PAIN 09/17/20 16:15 Aspirin (Aspirin Chewable) 81 mg DAILY PO 09/18/20 09:00 09/19/20 09:21 Atorvastatin Calcium (Lipitor) 10 mg QHS PO 09/17/20 21:00 09/19/20 20:06 Bisacodyl (Dulcolax Supp) 10 mg PRN DAILY PRN RC CONSTIPATION 09/17/20 16:15 Diclofenac Sodium (Voltaren) 1 will PRN Q8HRS PRN TP MUSCLE PAIN 09/17/20 16:15 Divalproex Sodium (Depakote Er) 750 mg QHS PO 09/17/20 21:00 09/19/20 20:05 Lorazepam (Ativan) 0.5 mg PRN BID PRN PO ANXIETY 09/17/20 16:15 Mirtazapine (Remeron) 15 mg QHS PO 09/17/20 21:00 09/19/20 20:07 Olanzapine (ZyPREXA ZYDIS) 2.5 mg PRN Q2HR PRN PO ANXIETY / AGITATION 09/17/20 16:15 Oxycodone/ Acetaminophen (Percocet 7.5/ 325) 1 tab PRN Q8HRS PRN PO PAIN 09/17/20 16:15 09/19/20 01:35 Artificial Tears (Artificial Tears) 1 drop PRN Q15MIN PRN OU DRY EYE 09/17/20 16:15 Prazosin HCl (Minipress) 3 mg QHS PO 09/17/20 21:00 09/19/20 20:06 Quetiapine Fumarate (SEROquel) 37.5 mg 0900,1300,1700 PO 09/17/20 17:00 09/19/20 17:32 Quetiapine Fumarate (SEROquel) 50 mg PRN DAILY PRN PO ANXIETY / AGITATION 09/17/20 16:15 Quetiapine Fumarate (SEROquel) 100 mg QHS PO 09/17/20 21:00 09/19/20 20:06 Sertraline HCl (Zoloft) 100 mg DAILY@1700 PO 09/17/20 17:00 09/19/20 17:33 Trazodone HCl (Desyrel) 50 mg PRN QHS PRN PO INSOMNIA, MAY REPEAT X1 09/17/20 16:15 09/17/20 19:41 Loperamide HCl (Imodium) 2 mg PRN Q15MIN PRN PO DIARRHEA 09/17/20 16:30 Multivitamins/ Calcium (Thera-M Plus) 1 tab DAILY PO 09/18/20 09:00 09/19/20 09:21 Pantoprazole Sodium (Protonix) 40 mg DAILYAC PO 09/18/20 07:30 09/19/20 09:22 Potassium Chloride (Klor-Con) 10 meq QODAY PO 09/19/20 09:00 09/19/20 09:25 Current Medications Medications (Trade) Dose Ordered Sig/Abundio Route PRN Reason Start Time Stop Time Status Last Admin Dose Admin Potassium Chloride (Klor-Con) 10 meq QODAY PO 09/19/20 09:00 09/19/20 09:25 I have reviewed the current psychotropics carefully including drug interactions. Risk benefit ratio favors no change other than as noted in my dictated progress note. Diagnosis: Problems: (1) Impulse control disorder, unspecified (2) Anxiety disorder, unspecified (3) Dementia, vascular, with depression (4) Dementia, vascular, with delusions (5) Dementia in Alzheimer's disease with depression (6) Dementia in Alzheimer's disease with delusions (7) Dementia of the Alzheimer's type with early onset with behavioral dis turbance (8) Major neurocognitive disorder DUANE NINO MD Sep 19, 2020 21:57
--- NOTE | 2020-09-19 23:52 | NUR ---
Nursing note Pt pleasant calm and cooperative. Speaks in a word salad, denies complaints no agitation noted.
[2020-09-20 07:03] VITALS: BP 100/67
--- NOTE | 2020-09-20 08:45 | NUR ---
ACTIVITY THERAPY ASSESSMENT Pt agreeable to meet with AT. Pt remains confused and disorganized. Pt reports hip and back pain, AT said she would notify his nurse. AT asked if she could get him anything and he said "ice cream." AT and pt both laughed and AT said we could get him some later in the day. Goal Pt. will participate in at lease five Activity Therapy groups or individual sessions before discharge remains valid. Original ACTIVITY THERAPY ASSESSMENT from 08/30 at 1505 still remains valid: Completed based on observation, interview, and notes. Pt. was sitting in the day room and agreeable to speak with [employer] SALES REPRESENTATIVE. She introduced herself as "Kavya" and Pt complimented her name and eyes. He spoke softly and was hard of hearing throughout interview. His glasses rested on the tip of his nose with the right lens fogged out. He was wearing his wrist watch and ring during interview and he usually has a furrowed brow and appears lost at times. He was confused and had difficulty recalling facts, details and making choices. He jokes with staff a bit when CNAs came to take his vital signs. CNAs report Pt. can be resistive with ADLs occasionally. Pt. was pleasant the entire interview and he needed prompting to say whether or not he enjoyed a leisure activity- music: "country", TV: "not really", stated he has "plenty of work to do." Psychosocial indicated Pt has enjoyed fly fishing, hunting (deer, elk, rabbits), horse riding, and walking with his . Pt. is in the day room most of the time and socializes with others well. Initial goal aimed to increase stimulation: Pt. will participate in at lease five Activity Therapy groups or individual sessions before discharge. Goal repeated 09/06 Addendum: 10/04/20 at 1111 by FRANSISCO ANTON ACT Goal repeated 10/04
[2020-09-20] MEDS: ASPIRIN CHEWABLE 81 MG TABLET. PO SCH (08:48)
[2020-09-20] MEDS: QUEtiapine 25 MG TABLET. PO SCH ×3 (08:48→17:53)
[2020-09-20] MEDS: PANTOPRAZOLE 40 MG TABLET. PO SCH (08:48)
[2020-09-20] MEDS: MULTIVITAMIN with MINERAL TABLET. PO SCH (08:48)
[2020-09-20] MEDS: ACETAMINOPHEN 325 MG TABLET PO SCH ×2 (08:48→09:49)
--- NOTE | 2020-09-20 12:14 | NUR ---
WEEKLY ACTIVITY THERAPY NOTE Date of Admission: 09/17/20 Date of AT Assessment: 09/20 Precipitating behaviors that initiated intake and admission: Pt continuing his stay for multiple behaviors from the skilled unit stay. Pt is intermittently combative and confused. Goal aimed: increase stimulation Initial Goal:Pt. will participate in at lease five Activity Therapy groups or individual sessions before discharge Weekly progress towards goal: goal evaluation begins next week Group participation level: 1 min Weekly highlights: shouting to song Thursday morning Behaviors observed: pleasantly confused Plan: goal evaluation begins next week Beneficial adaptations: redirection
--- NOTE | 2020-09-20 12:43 | TX PLAN ---
Interdisciplinary Tx Plan Admission Information Sep 17, 2020 at 13:40 Legal Status (on Admission): Voluntary, DPOA DPOA/Guardian Name: Heidy [place]- Contact Other Contact Name: Caryl Other Contact Verified Code Status: DNR Allergies: Coded Allergies: No Known Drug Allergies (Unverified , 08/28/20) Estimated Length of Stay: 14 Diagnoses Primary Diagnosis: Major neurocognitive disorder, vascular alzheimers with delusions BD; Anxiety d/o unspecified; Impulse control d/o Reasons for Admission: Aggressive, Agitated, Combative, Suspicious/paranoid, Poor impulse control Problem in Patient's Words: Per POA, as noted above. Problems Active Problems: Aggressive Agitated Combative Wandering Confused Paranoid Inactive Problems: Medication compliant Averaging 80% of meal intakes Averaging 7 hours of sleep Pt Strengths/Limitations Ability for [place]: Poor Cognitive Functioning/Ability: Poor Communication Skills/Ability: Fair Financial Resources: Fair Insight/Judgement: Poor Intellectual Ability: Fair Physical Health: Fair Social Skills: Fair Stability in Family: Good Verbal Skills: Fair Discharge Criteria Discharge Criteria: Adequate arrangements @DC, Improved behavior, Improved mood/thought Preliminary Discharge Plan Preliminary DC Plan: Memory Care Other Arrangements: [facility] Special Precautions Special Precautions: Agitation/Assault Fall Risk: High Initial D/C Plan Return to [facility] Identified Discharge Needs: Out patient psychiatry if available, restorative therapy program, activites to occupy time, allow adequate time for Eric to process and respond. Currently Utilized Resources Currently Utilized Resources/P: PCP 24 hour memory care Referrals Community Resources: [facility] Identified Problems/Hx/Goals Objectives/Short-Term Goals Short Term Goals: Control abnormal behavior, Dec. Aggression, Dec. Outbursts, Medication Stabilization, Prevent Deterioration Short Term Goals in Patient's: Per POA, for Eric to "be at peace, be able to sleep at night, and have increased intake." Interventions/Frequency Staff Interventions/Frequency&: Nursing to provide routine safety checks, medication administration, and adl support. Psychiatry to see three times weekly. SW to see twice weekly. SW and recreational groups as Eric allows. PT/OT eval and treat as indicated. 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 Social: Eric has enjoyed fishing and hunting. Education: Eric graduated high school and attended some college. Community Follow-up PCP [facility] Community Provider/Family Inpu: Heidy (/POA) and Shauna (daughter) participated in team meeting this date. Tentative d/c date mid next week. 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
--- NOTE | 2020-09-20 13:00 | NUR ---
Team meeting held this date, Heidy (/POA) and Shauna (daughter) participated via phone. Eric is averaging 80% of meal intakes and seven hours of sleep at night. He has been calm and cooperative and is medication compliant since readmission to [facility]. He is confused, has difficulty expressing his needs/desires in a sensical manner, and wanders about the unit. Eric's VPA is [address] Davis will continue to adjust Depakote. Eric does well with 1:1 interactions and initiates conversation despite it being confused or unrelated to the current situation. Tentative d/c middle of next week. SW left detailed voice message for Keily, admissions at [facility], with update. Faxed Chuck Eric's current notes, medication list, and labs for review.
--- NOTE | 2020-09-20 13:21 | NUR ---
Pt remains calm, confused, and disorganized this shift. Speech at times garbled and hard to understand. He is frequently seen wandering, and is at times found standing around in other patients' rooms. He is med compliant with medications, no SI/HI/VH/AH at this time. PAINAD score 0. Plan of care continues, will pass to next shift.
[2020-09-20 15:49] VITALS: BP 101/62
--- NOTE | 2020-09-20 16:04 | NUR ---
Eric's broken glasses were located. Per /POA's request, RENE mailed the glasses to [facility] Attn: Gracie 0 [facility] [address] [place] [id number] on this date. [facility] tracking number is [id number]. RENE notified Heidy, /POA, that the glasses were mailed this date. Heidy expressed appreciation and will follow up with Gracie at the [facility] in a few days to ensure she receives them.
[2020-09-20] MEDS: SERTRALINE 100 MG TABLET. PO SCH (17:53)
[2020-09-20] MEDS: ATORVASTATIN CALCIUM 10 MG TABLET. PO SCH (20:31)
[2020-09-20] MEDS: MIRTAZAPINE 15 MG TABLET PO SCH (20:31)
[2020-09-20] MEDS: DIVALPROEX ER 250 MG TAB.ER.24H. PO SCH (20:31)
[2020-09-20] MEDS: PRAZOSIN 1 MG CAPSULE. PO SCH (20:32)
[2020-09-20] MEDS: QUEtiapine 100 MG TABLET. PO SCH (20:32)
--- NOTE | 2020-09-20 22:15 | PDOC ---
Exam Note: Raman Note: Please also refer to the separate dictated note~for this date of service dictated separately.~Patient seen individually. Discussed the patient with Nursing staff reviewed the chart.~Reviewed interim history and current functioning. Reviewed vital signs,~Labs/ Radiology~and current medications noted below. Continue current treatment with the changes noted in the dictated addendum note Assessment: Vital Signs/I&O: Vital Signs Date Time Temp Pulse Resp B/P (MAP) Pulse Ox O2 Delivery O2 Flow Rate FiO2 09/20/20 20:32 92 101/62 09/20/20 15:49 97.8 18 94 09/20/20 07:03 Room Air I & O 09/19/20 09/19/20 09/20/20 14:59 22:59 06:59 Intake Total 360 ml 240 ml Balance 360 ml 240 ml Current Medications: Meds: Current Medications Medications (Trade) Dose Ordered Sig/Abundio Route PRN Reason Start Time Stop Time Status Last Admin Dose Admin Acetaminophen (Tylenol) 650 mg PRN Q6HRS PRN PO MILD PAIN / TEMP > 100.3'F 09/17/20 15:30 09/20/20 20:31 Multi-Ingredient Ointment (Analgesic [place]) 1 will PRN QID PRN TP MUSCLE PAIN 09/17/20 15:30 Al Hydroxide/Mg Hydroxide (Mylanta Plus Xs) 15 ml PRN AFTMEALHC PRN PO DYSPEPSIA 09/17/20 15:30 Magnesium Hydroxide (Milk Of Magnesia) 2,400 mg PRN QHS PRN PO 1st choice CONSTIPATION 09/17/20 15:30 Acetaminophen (Tylenol) 650 mg BID PO 09/17/20 21:00 09/20/20 09:49 Acetaminophen (Tylenol) 650 mg PRN Q6HRS PRN PO PAIN 09/17/20 16:15 Aspirin (Aspirin Chewable) 81 mg DAILY PO 09/18/20 09:00 09/20/20 08:48 Atorvastatin Calcium (Lipitor) 10 mg QHS PO 09/17/20 21:00 09/20/20 20:31 Bisacodyl (Dulcolax Supp) 10 mg PRN DAILY PRN RC 2nd choice CONSTIPATION 09/17/20 16:15 Diclofenac Sodium (Voltaren) 1 will PRN Q8HRS PRN TP MUSCLE PAIN 09/17/20 16:15 Divalproex Sodium (Depakote Er) 750 mg QHS PO 09/17/20 21:00 09/20/20 20:31 Lorazepam (Ativan) 0.5 mg PRN BID PRN PO ANXIETY 09/17/20 16:15 Mirtazapine (Remeron) 15 mg QHS PO 09/17/20 21:00 09/20/20 20:31 Olanzapine (ZyPREXA ZYDIS) 2.5 mg PRN Q2HR PRN PO ANXIETY / AGITATION 09/17/20 16:15 Oxycodone/ Acetaminophen (Percocet 7.5/ 325) 1 tab PRN Q8HRS PRN PO PAIN 09/17/20 16:15 09/19/20 01:35 Artificial Tears (Artificial Tears) 1 drop PRN Q15MIN PRN OU DRY EYE 09/17/20 16:15 Prazosin HCl (Minipress) 3 mg QHS PO 09/17/20 21:00 09/19/20 20:06 Quetiapine Fumarate (SEROquel) 37.5 mg 0900,1300,1700 PO 09/17/20 17:00 09/20/20 17:53 Quetiapine Fumarate (SEROquel) 50 mg PRN DAILY PRN PO ANXIETY / AGITATION 09/17/20 16:15 Quetiapine Fumarate (SEROquel) 100 mg QHS PO 09/17/20 21:00 09/20/20 20:32 Sertraline HCl (Zoloft) 100 mg DAILY@1700 PO 09/17/20 17:00 09/20/20 17:53 Trazodone HCl (Desyrel) 50 mg PRN QHS PRN PO INSOMNIA, MAY REPEAT X1 09/17/20 16:15 09/17/20 19:41 Loperamide HCl (Imodium) 2 mg PRN Q15MIN PRN PO DIARRHEA 09/17/20 16:30 Multivitamins/ Calcium (Thera-M Plus) 1 tab DAILY PO 09/18/20 09:00 09/20/20 08:48 Pantoprazole Sodium (Protonix) 40 mg DAILYAC PO 09/18/20 07:30 09/20/20 08:48 Potassium Chloride (Klor-Con) 10 meq QODAY PO 09/19/20 09:00 09/19/20 09:25 I have reviewed the current psychotropics carefully including drug interactions. Risk benefit ratio favors no change other than as noted in my dictated progress note. Diagnosis: Problems: (1) Impulse control disorder, unspecified (2) Anxiety disorder, unspecified (3) Dementia, vascular, with depression (4) Dementia, vascular, with delusions (5) Dementia in Alzheimer's disease with depression (6) Dementia in Alzheimer's disease with delusions (7) Dementia of the Alzheimer's type with early onset with behavioral disturbance (8) Major neurocognitive disorder DUANE NINO MD Sep 20, 2020 22:15
[2020-09-20] MEDS: LORazepam 0.5 MG TABLET PO PRN (23:12)
[2020-09-20] MEDS: traZODone 50 MG TABLET. PO PRN (23:12)
--- NOTE | 2020-09-20 23:54 | NUR ---
Nursing note Pt complains of pain and is irritable this pm. Given Tylenol, trazodone, and ativan. Pt has difficulty following directions, seems to be not understanding commands. Pt also having trouble with thin liquids, has a wet vocal quality and with choke and cough with small amounts. [place] thick liquids given for safety. Will consult [facility].
[2020-09-21 06:26] VITALS: BP 105/66
--- NOTE | 2020-09-21 06:48 | PDOC ---
Exam Note: Raman Note: This note is a late entry for 09/19/2020overs elements not covered in my initial note. Subjective: The patient was seen face to face in the evening of 09/19/2020 with Sukhi MONTEMAYOR, discussed and reviewed the chart. The patient slept 7-3/4 hours previous night. He remains confused, takes his meds crushed and diet has been changed to pureed which has been helpful. He has had a fall, complains of some pain. Review of Systems: Impaired ambulation. No CV, , pulmonary, eye system symptoms on review. Reliability poor. Mental Status Exam: The patient is oriented to himself. He is not very verbally interactive or responsive but otherwise pleasant. Insight and judgment, recent and remote memory, attention and concentration is poor consistent with his diagnoses. Laboratory Data: Reviewed. Impression: Major neurocognitive disorder Alzheimer vascular with delusion, depression, and behavioral disturbance. Anxiety disorder unspecified. Impulse control disorder unspecified. Plan: Continue current psychotropics unchanged. Assessment: Vital Signs/I&O: Vital Signs Date Time Temp Pulse Resp B/P (MAP) Pulse Ox O2 Delivery O2 Flow Rate FiO2 09/21/20 06:26 97.8 66 18 105/66 (79) 96 Room Air I & O 09/20/20 09/20/20 09/21/20 15:00 23:00 07:00 Intake Total 360 ml 600 ml Balance 360 ml 600 ml Current Medications: Meds: Current Medications Medications (Trade) Dose Ordered Sig/Abundio Route PRN Reason Start Time Stop Time Status Last Admin Dose Admin Acetaminophen (Tylenol) 650 mg PRN Q6HRS PRN PO MILD PAIN / TEMP > 100.3'F 09/17/20 15:30 09/20/20 20:31 Multi-Ingredient Ointment (Analgesic [place]) 1 will PRN QID PRN TP MUSCLE PAIN 09/17/20 15:30 Al Hydroxide/Mg Hydroxide (Mylanta Plus Xs) 15 ml PRN AFTMEALHC PRN PO DYSPEPSIA 09/17/20 15:30 Magnesium Hydroxide (Milk Of Magnesia) 2,400 mg PRN QHS PRN PO 1st choice CONSTIPATION 09/17/20 15:30 Acetaminophen (Tylenol) 650 mg BID PO 09/17/20 21:00 09/20/20 09:49 Acetaminophen (Tylenol) 650 mg PRN Q6HRS PRN PO PAIN 09/17/20 16:15 Aspirin (Aspirin Chewable) 81 mg DAILY PO 09/18/20 09:00 09/20/20 08:48 Atorvastatin Calcium (Lipitor) 10 mg QHS PO 09/17/20 21:00 09/20/20 20:31 Bisacodyl (Dulcolax Supp) 10 mg PRN DAILY PRN RC 2nd choice CONSTIPATION 09/17/20 16:15 Diclofenac Sodium (Voltaren) 1 will PRN Q8HRS PRN TP MUSCLE PAIN 09/17/20 16:15 Divalproex Sodium (Depakote Er) 750 mg QHS PO 09/17/20 21:00 09/20/20 20:31 Lorazepam (Ativan) 0.5 mg PRN BID PRN PO ANXIETY 09/17/20 16:15 09/20/20 23:12 Mirtazapine (Remeron) 15 mg QHS PO 09/17/20 21:00 09/20/20 20:31 Olanzapine (ZyPREXA ZYDIS) 2.5 mg PRN Q2HR PRN PO ANXIETY / AGITATION 09/17/20 16:15 Oxycodone/ Acetaminophen (Percocet 7.5/ 325) 1 tab PRN Q8HRS PRN PO PAIN 09/17/20 16:15 09/19/20 01:35 Artificial Tears (Artificial Tears) 1 drop PRN Q15MIN PRN OU DRY EYE 09/17/20 16:15 Prazosin HCl (Minipress) 3 mg QHS PO 09/17/20 21:00 09/19/20 20:06 Quetiapine Fumarate (SEROquel) 37.5 mg 0900,1300,1700 PO 09/17/20 17:00 09/20/20 17:53 Quetiapine Fumarate (SEROquel) 50 mg PRN DAILY PRN PO ANXIETY / AGITATION 09/17/20 16:15 Quetiapine Fumarate (SEROquel) 100 mg QHS PO 09/17/20 21:00 09/20/20 20:32 Sertraline HCl (Zoloft) 100 mg DAILY@1700 PO 09/17/20 17:00 09/20/20 17:53 Trazodone HCl (Desyrel) 50 mg PRN QHS PRN PO INSOMNIA, MAY REPEAT X1 09/17/20 16:15 09/20/20 23:12 Loperamide HCl (Imodium) 2 mg PRN Q15MIN PRN PO DIARRHEA 09/17/20 16:30 Multivitamins/ Calcium (Thera-M Plus) 1 tab DAILY PO 09/18/20 09:00 09/20/20 08:48 Pantoprazole Sodium (Protonix) 40 mg DAILYAC PO 09/18/20 07:30 09/20/20 08:48 Potassium Chloride (Klor-Con) 10 meq QODAY PO 09/19/20 09:00 09/19/20 09:25 I have reviewed the current psychotropics carefully including drug interactions. Risk benefit ratio favors no change other than as noted in my dictated progress note. Diagnosis: Problems: (1) Impulse control disorder, unspecified (2) PTSD (post-traumatic stress disorder) (3) Anxiety disorder, unspecified (4) Dementia, vascular, with depression (5) Dementia, vascular, with delusions (6) Dementia in Alzheimer's disease with depression (7) Dementia in Alzheimer's disease with delusions (8) Dementia of the Alzheimer's type with early onset with behavioral disturbance (9) Major neurocognitive disorder DUANE NINO MD Sep 21, 2020 06:48
--- NOTE | 2020-09-21 07:09 | PDOC ---
Exam Note: Raman Note: This note is a late entry for 09/20/2020overs elements not covered in my initial note. Subjective: The patient was reviewed at treatment team meeting individually in the morning on 09/20/2020 with Viola Dozier, Chioma Coburn (drug abuse social worker), Maira, activity therapy and Maddie RN, discussed and reviewed the chart. The patient slept 7-3/4 hours previous night. He remains confused. The patients Heidy and daughter Erna attended the conference. We had lengthy discussion about patients diagnoses, current psychotropics, prognosis, discharge plans, adjustments in psychotropics. Review of Systems: No CV, , pulmonary, eye system symptoms on review. Reliability poor. Mental Status Exam: The patient is oriented to himself. I met with the patient in the dayroom. He is confused otherwise, pleasant, cooperative. Insight and judgment, recent and remote memory, attention and concentration is poor consistent with his diagnoses. Laboratory Data: Reviewed. Impression: Major neurocognitive disorder Alzheimer vascular with delusion, depression, and behavioral disturbance. Anxiety disorder unspecified. Impulse control disorder unspecified. PTSD. Plan: Continue current psychotropics from initial note. Valproic acid level is subtherapeutic at we may increase Depakote depending on some feedback from skilled nursing. Adjust further as clinically indicated. Assessment: Vital Signs/I&O: Vital Signs Date Time Temp Pulse Resp B/P (MAP) Pulse Ox O2 Delivery O2 Flow Rate FiO2 09/21/20 06:26 97.8 66 18 105/66 (79) 96 Room Air I & O 09/20/20 09/20/20 09/21/20 14:59 22:59 06:59 Intake Total 360 ml 600 ml Balance 360 ml 600 ml Current Medications: Meds: Current Medications Medications (Trade) Dose Ordered Sig/Abundio Route PRN Reason Start Time Stop Time Status Last Admin Dose Admin Acetaminophen (Tylenol) 650 mg PRN Q6HRS PRN PO MILD PAIN / TEMP > 100.3'F 09/17/20 15:30 09/20/20 20:31 Multi-Ingredient Ointment (Analgesic [place]) 1 will PRN QID PRN TP MUSCLE PAIN 09/17/20 15:30 Al Hydroxide/Mg Hydroxide (Mylanta Plus Xs) 15 ml PRN AFTMEALHC PRN PO DYSPEPSIA 09/17/20 15:30 Magnesium Hydroxide (Milk Of Magnesia) 2,400 mg PRN QHS PRN PO 1st choice CONSTIPATION 09/17/20 15:30 Acetaminophen (Tylenol) 650 mg BID PO 09/17/20 21:00 09/20/20 09:49 Acetaminophen (Tylenol) 650 mg PRN Q6HRS PRN PO PAIN 09/17/20 16:15 Aspirin (Aspirin Chewable) 81 mg DAILY PO 09/18/20 09:00 09/20/20 08:48 Atorvastatin Calcium (Lipitor) 10 mg QHS PO 09/17/20 21:00 09/20/20 20:31 Bisacodyl (Dulcolax Supp) 10 mg PRN DAILY PRN RC 2nd choice CONSTIPATION 09/17/20 16:15 Diclofenac Sodium (Voltaren) 1 will PRN Q8HRS PRN TP MUSCLE PAIN 09/17/20 16:15 Divalproex Sodium (Depakote Er) 750 mg QHS PO 09/17/20 21:00 09/20/20 20:31 Lorazepam (Ativan) 0.5 mg PRN BID PRN PO ANXIETY 09/17/20 16:15 09/20/20 23:12 Mirtazapine (Remeron) 15 mg QHS PO 09/17/20 21:00 09/20/20 20:31 Olanzapine (ZyPREXA ZYDIS) 2.5 mg PRN Q2HR PRN PO ANXIETY / AGITATION 09/17/20 16:15 Oxycodone/ Acetaminophen (Percocet 7.5/ 325) 1 tab PRN Q8HRS PRN PO PAIN 09/17/20 16:15 09/19/20 01:35 Artificial Tears (Artificial Tears) 1 drop PRN Q15MIN PRN OU DRY EYE 09/17/20 16:15 Prazosin HCl (Minipress) 3 mg QHS PO 09/17/20 21:00 09/19/20 20:06 Quetiapine Fumarate (SEROquel) 37.5 mg 0900,1300,1700 PO 09/17/20 17:00 09/20/20 17:53 Quetiapine Fumarate (SEROquel) 50 mg PRN DAILY PRN PO ANXIETY / AGITATION 09/17/20 16:15 Quetiapine Fumarate (SEROquel) 100 mg QHS PO 09/17/20 21:00 09/20/20 20:32 Sertraline HCl (Zoloft) 100 mg DAILY@1700 PO 09/17/20 17:00 09/20/20 17:53 Trazodone HCl (Desyrel) 50 mg PRN QHS PRN PO INSOMNIA, MAY REPEAT X1 09/17/20 16:15 09/20/20 23:12 Loperamide HCl (Imodium) 2 mg PRN Q15MIN PRN PO DIARRHEA 09/17/20 16:30 Multivitamins/ Calcium (Thera-M Plus) 1 tab DAILY PO 09/18/20 09:00 09/20/20 08:48 Pantoprazole Sodium (Protonix) 40 mg DAILYAC PO 09/18/20 07:30 09/20/20 08:48 Potassium Chloride (Klor-Con) 10 meq QODAY PO 09/19/20 09:00 09/19/20 09:25 I have reviewed the current psychotropics carefully including drug interactions. Risk benefit ratio favors no change other than as noted in my dictated progress note. Diagnosis: Problems: (1) Impulse control disorder, unspecified (2) PTSD (post-traumatic stress disorder) (3) Anxiety disorder, unspecified (4) Dementia, vascular, with depression (5) Dementia, vascular, with delusions (6) Dementia in Alzheimer's disease with depression (7) Dementia in Alzheimer's disease with delusions (8) Dementia of the Alzheimer's type with early onset with behavioral disturbance (9) Major neurocognitive disorder DUANE NINO MD Sep 21, 2020 07:09
--- NOTE | 2020-09-21 07:52 | NUR ---
Nursing note pt was in room in chair, he stood and lowered himself to the floor. No injury noted, states he ws hurting on his left side, staff X 3 lifted him to standing. Pt using foul language interspersed with word salad. Heidy notified, also Dr. Weber, VSS. When asked if he was in pain patient stated "[place]" pointing out the window. No new orders, no obvious injury.
[2020-09-21] MEDS: POTASSIUM CHLORIDE 10 MEQ TABLET.ER. PO SCH (08:08)
[2020-09-21] MEDS: QUEtiapine 25 MG TABLET. PO SCH ×3 (08:08→16:21)
[2020-09-21] MEDS: ACETAMINOPHEN 325 MG TABLET PO SCH ×2 (08:08→20:53)
[2020-09-21] MEDS: PANTOPRAZOLE 40 MG TABLET. PO SCH (08:08)
[2020-09-21] MEDS: ASPIRIN CHEWABLE 81 MG TABLET. PO SCH (08:08)
[2020-09-21] MEDS: MULTIVITAMIN with MINERAL TABLET. PO SCH (08:09)
--- NOTE | 2020-09-21 09:04 | NUR ---
Pt remains confused, and disorganized this shift. Speech at times garbled and hard to understand. He is med compliant with medications, no SI/HI/VH/AH at this time. Plan of care continues, will pass to next shift.
[2020-09-21 15:44] VITALS: BP 103/62
[2020-09-21] MEDS: SERTRALINE 100 MG TABLET. PO SCH (16:21)
--- NOTE | 2020-09-21 17:08 | NUR ---
Nursing staff advised to keep pt on nectar thin liquids for safety pending ST consult in the morning.
[2020-09-21] MEDS: ATORVASTATIN CALCIUM 10 MG TABLET. PO SCH (20:52)
[2020-09-21] MEDS: PRAZOSIN 1 MG CAPSULE. PO SCH (20:52)
[2020-09-21] MEDS: QUEtiapine 100 MG TABLET. PO SCH (20:53)
[2020-09-21] MEDS: MIRTAZAPINE 15 MG TABLET PO SCH (20:53)
[2020-09-21] MEDS: DIVALPROEX ER 250 MG TAB.ER.24H. PO SCH (20:53)
--- NOTE | 2020-09-21 21:36 | PDOC ---
Exam Note: Raman Note: Please also refer to the separate dictated note~for this date of service dictated separately.~Patient seen individually. Discussed the patient with Nursing staff reviewed the chart.~Reviewed interim history and current functioning. Reviewed vital signs,~Labs/ Radiology~and current medications noted below. Continue current treatment with the changes noted in the dictated addendum note Assessment: Vital Signs/I&O: Vital Signs Date Time Temp Pulse Resp B/P (MAP) Pulse Ox O2 Delivery O2 Flow Rate FiO2 09/21/20 20:52 71 103/62 09/21/20 15:44 97.8 16 93 Room Air I & O 09/20/20 09/20/20 09/21/20 15:00 23:00 07:00 Intake Total 360 ml 600 ml Balance 360 ml 600 ml Current Medications: Meds: Current Medications Medications (Trade) Dose Ordered Sig/Abundio Route PRN Reason Start Time Stop Time Status Last Admin Dose Admin Acetaminophen (Tylenol) 650 mg PRN Q6HRS PRN PO MILD PAIN / TEMP > 100.3'F 09/17/20 15:30 09/21/20 07:53 DC 09/20/20 20:31 Multi-Ingredient Ointment (Analgesic [place]) 1 will PRN QID PRN TP MUSCLE PAIN 09/17/20 15:30 Al Hydroxide/Mg Hydroxide (Mylanta Plus Xs) 15 ml PRN AFTMEALHC PRN PO DYSPEPSIA 09/17/20 15:30 Magnesium Hydroxide (Milk Of Magnesia) 2,400 mg PRN QHS PRN PO 1st choice CONSTIPATION 09/17/20 15:30 Acetaminophen (Tylenol) 650 mg BID PO 09/17/20 21:00 09/21/20 20:53 Acetaminophen (Tylenol) 650 mg PRN Q6HRS PRN PO MILD PAIN 1-3/ TEMP 09/17/20 16:15 Aspirin (Aspirin Chewable) 81 mg DAILY PO 09/18/20 09:00 09/21/20 08:08 Atorvastatin Calcium (Lipitor) 10 mg QHS PO 09/17/20 21:00 09/21/20 20:52 Bisacodyl (Dulcolax Supp) 10 mg PRN DAILY PRN RC 2nd choice CONSTIPATION 09/17/20 16:15 Diclofenac Sodium (Voltaren) 1 will PRN Q8HRS PRN TP MUSCLE PAIN 09/17/20 16:15 Divalproex Sodium (Depakote Er) 750 mg QHS PO 09/17/20 21:00 09/21/20 20:53 Lorazepam (Ativan) 0.5 mg PRN BID PRN PO ANXIETY 09/17/20 16:15 09/20/20 23:12 Mirtazapine (Remeron) 15 mg QHS PO 09/17/20 21:00 09/21/20 20:53 Olanzapine (ZyPREXA ZYDIS) 2.5 mg PRN Q2HR PRN PO ANXIETY / AGITATION 09/17/20 16:15 Oxycodone/ Acetaminophen (Percocet 7.5/ 325) 1 tab PRN Q8HRS PRN PO MOD-SEVERE PAIN 09/17/20 16:15 09/19/20 01:35 Artificial Tears (Artificial Tears) 1 drop PRN Q15MIN PRN OU DRY EYE 09/17/20 16:15 Prazosin HCl (Minipress) 3 mg QHS PO 09/17/20 21:00 09/21/20 20:52 Quetiapine Fumarate (SEROquel) 37.5 mg 0900,1300,1700 PO 09/17/20 17:00 09/21/20 16:21 Quetiapine Fumarate (SEROquel) 50 mg PRN DAILY PRN PO ANXIETY / AGITATION 09/17/20 16:15 Quetiapine Fumarate (SEROquel) 100 mg QHS PO 09/17/20 21:00 09/21/20 20:53 Sertraline HCl (Zoloft) 100 mg DAILY@1700 PO 09/17/20 17:00 09/21/20 16:21 Trazodone HCl (Desyrel) 50 mg PRN QHS PRN PO INSOMNIA, MAY REPEAT X1 09/17/20 16:15 09/20/20 23:12 Loperamide HCl (Imodium) 2 mg PRN Q15MIN PRN PO DIARRHEA 09/17/20 16:30 Multivitamins/ Calcium (Thera-M Plus) 1 tab DAILY PO 09/18/20 09:00 09/21/20 08:09 Pantoprazole Sodium (Protonix) 40 mg DAILYAC PO 09/18/20 07:30 09/21/20 08:08 Potassium Chloride (Klor-Con) 10 meq QODAY PO 09/19/20 09:00 09/21/20 08:08 I have reviewed the current psychotropics carefully including drug interactions. Risk benefit ratio favors no change other than as noted in my dictated progress note. Diagnosis: Problems: (1) Impulse control disorder, unspecified (2) PTSD (post-traumatic stress disorder) (3) Anxiety disorder, unspecified (4) Dementia, vascular, with depression (5) Dementia, vascular, with delusions (6) Dementia in Alzheimer's disease with depression (7) Dementia in Alzheimer's disease with delusions (8) Dementia of the Alzheimer's type with early onset with behavioral dist urbance (9) Major neurocognitive disorder DUANE NINO MD Sep 21, 2020 21:36
--- NOTE | 2020-09-22 01:47 | NUR ---
Nursing Note The patient was located in the day room for his assessment and medication pass. The patient received his medication crushed/floated in pudding and ensure. The patient was difficult to medicate due to difficulty swallowing. The patient displayed difficulty swallowing nectar thick, honey thick and even pudding. The patient was alert to self only. The patient is currently sleeping in his room.
[2020-09-22 06:01] VITALS: BP 145/71
[2020-09-22] MEDS: ACETAMINOPHEN 325 MG TABLET PO SCH ×2 (08:26→20:42)
[2020-09-22] MEDS: ASPIRIN CHEWABLE 81 MG TABLET. PO SCH (08:26)
[2020-09-22] MEDS: QUEtiapine 25 MG TABLET. PO SCH ×4 (08:26→20:47)
[2020-09-22] MEDS: PANTOPRAZOLE 40 MG TABLET. PO SCH (08:26)
[2020-09-22] MEDS: MULTIVITAMIN with MINERAL TABLET. PO SCH (08:30)
--- NOTE | 2020-09-22 09:05 | NUR ---
Pt remains confused, and disorganized this shift. Speech at times garbled and hard to understand. Education/instruction to nursing staff regarding providing pt with honey thick liquids reinforced. Pt appeared to tolerate honey think liquids fairly well during breakfast, however a few occasions of coughing was noted. Medications were crushed and mixed into honey thick orange juice which was then spoon fed. He verbalized displeasure with taste during administration and much encouragement and support was required. Morning Multivatmin was held d/t difficulty with dissolving in honey thick liquids. He still wanders about the unit frequently, often with a wide eyed and almost frozen (intense) expression on his face. Absent of verbal/physical aggression so far this shift. Per NOC report, pt may be more receptive to direction and cares from a male staff member as opposed to a female. Plan of care continues, will pass to next shift.
--- NOTE | 2020-09-22 10:42 | NUR ---
Pt displaying increasing anxiety; exit seeking and door checking. He will pull on locked doors for an extended amount of time and is not receptive to redirection from staff. PRN Zyprexa 2.5 mg PO administered for anxiety.
[2020-09-22 15:33] VITALS: BP 117/70
[2020-09-22] MEDS: SERTRALINE 100 MG TABLET. PO SCH (16:14)
[2020-09-22] MEDS: ATORVASTATIN CALCIUM 10 MG TABLET. PO SCH (20:41)
[2020-09-22] MEDS: PRAZOSIN 1 MG CAPSULE. PO SCH (20:42)
[2020-09-22] MEDS: DIVALPROEX ER 250 MG TAB.ER.24H. PO SCH (20:42)
[2020-09-22] MEDS: MIRTAZAPINE 15 MG TABLET PO SCH (20:43)
[2020-09-22] MEDS: MAGNESIUM HYDROXIDE 2,400 MG/30 ML ORAL.SUSP. PO PRN (22:26)
[2020-09-22] MEDS: traZODone 50 MG TABLET. PO PRN (22:28)
--- NOTE | 2020-09-22 22:37 | PDOC ---
Exam Note: Raman Note: Please also refer to the separate dictated note~for this date of service dictated separately.~Patient seen individually. Discussed the patient with Nursing staff reviewed the chart.~Reviewed interim history and current functioning. Reviewed vital signs,~Labs/ Radiology~and current medications noted below. Continue current treatment with the changes noted in the dictated addendum note Assessment: Vital Signs/I&O: Vital Signs Date Time Temp Pulse Resp B/P (MAP) Pulse Ox O2 Delivery O2 Flow Rate FiO2 09/22/20 20:42 77 117/70 09/22/20 15:33 97.4 17 96 Room Air I & O 09/21/20 09/21/20 09/22/20 15:00 23:00 07:00 Intake Total 600 ml 360 ml Balance 600 ml 360 ml Current Medications: Meds: Current Medications Medications (Trade) Dose Ordered Sig/Abundio Route PRN Reason Start Time Stop Time Status Last Admin Dose Admin Acetaminophen (Tylenol) 650 mg PRN Q6HRS PRN PO MILD PAIN / TEMP > 100.3'F 09/17/20 15:30 09/21/20 07:53 DC 09/20/20 20:31 Multi-Ingredient Ointment (Analgesic [place]) 1 will PRN QID PRN TP MUSCLE PAIN 09/17/20 15:30 Al Hydroxide/Mg Hydroxide (Mylanta Plus Xs) 15 ml PRN AFTMEALHC PRN PO DYSPEPSIA 09/17/20 15:30 Magnesium Hydroxide (Milk Of Magnesia) 2,400 mg PRN QHS PRN PO 1st choice CONSTIPATION 09/17/20 15:30 09/22/20 22:26 Acetaminophen (Tylenol) 650 mg BID PO 09/17/20 21:00 09/22/20 20:42 Acetaminophen (Tylenol) 650 mg PRN Q6HRS PRN PO MILD PAIN 1-3/ TEMP 09/17/20 16:15 Aspirin (Aspirin Chewable) 81 mg DAILY PO 09/18/20 09:00 09/22/20 08:26 Atorvastatin Calcium (Lipitor) 10 mg QHS PO 09/17/20 21:00 09/22/20 20:41 Bisacodyl (Dulcolax Supp) 10 mg PRN DAILY PRN RC 2nd choice CONSTIPATION 09/17/20 16:15 Diclofenac Sodium (Voltaren) 1 will PRN Q8HRS PRN TP MUSCLE PAIN 09/17/20 16:15 Divalproex Sodium (Depakote Er) 750 mg QHS PO 09/17/20 21:00 09/22/20 20:42 Lorazepam (Ativan) 0.5 mg PRN BID PRN PO ANXIETY 09/17/20 16:15 09/20/20 23:12 Mirtazapine (Remeron) 15 mg QHS PO 09/17/20 21:00 09/22/20 20:43 Olanzapine (ZyPREXA ZYDIS) 2.5 mg PRN Q2HR PRN PO ANXIETY / AGITATION 09/17/20 16:15 09/22/20 10:42 Oxycodone/ Acetaminophen (Percocet 7.5/ 325) 1 tab PRN Q8HRS PRN PO MOD-SEVERE PAIN 09/17/20 16:15 09/19/20 01:35 Artificial Tears (Artificial Tears) 1 drop PRN Q15MIN PRN OU DRY EYE 09/17/20 16:15 Prazosin HCl (Minipress) 3 mg QHS PO 09/17/20 21:00 09/22/20 20:42 Quetiapine Fumarate (SEROquel) 37.5 mg 0900,1300,1700 PO 09/17/20 17:00 09/22/20 18:34 DC 09/22/20 16:14 Quetiapine Fumarate (SEROquel) 50 mg PRN DAILY PRN PO ANXIETY / AGITATION 09/17/20 16:15 Quetiapine Fumarate (SEROquel) 100 mg QHS PO 09/17/20 21:00 09/22/20 18:34 DC 09/21/20 20:53 Sertraline HCl (Zoloft) 100 mg DAILY@1700 PO 09/17/20 17:00 09/22/20 16:14 Trazodone HCl (Desyrel) 50 mg PRN QHS PRN PO INSOMNIA, MAY REPEAT X1 09/17/20 16:15 09/22/20 22:28 Loperamide HCl (Imodium) 2 mg PRN Q15MIN PRN PO DIARRHEA 09/17/20 16:30 Multivitamins/ Calcium (Thera-M Plus) 1 tab DAILY PO 09/18/20 09:00 09/21/20 08:09 Pantoprazole Sodium (Protonix) 40 mg DAILYAC PO 09/18/20 07:30 09/22/20 08:26 Potassium Chloride (Klor-Con) 10 meq QODAY PO 09/19/20 09:00 09/21/20 08:08 Quetiapine Fumarate (SEROquel) 75 mg QHS PO 09/22/20 21:00 09/22/20 20:47 Quetiapine Fumarate (SEROquel) 50 mg 0900,1700 PO 09/23/20 09:00 Quetiapine Fumarate (SEROquel) 37.5 mg 1300 PO 09/23/20 13:00 Current Medications Medications (Trade) Dose Ordered Sig/Abundio Route PRN Reason Start Time Stop Time Status Last Admin Dose Admin Quetiapine Fumarate (SEROquel) 75 mg QHS PO 09/22/20 21:00 09/22/20 20:47 I have reviewed the current psychotropics carefully including drug interactions. Risk benefit ratio favors no change other than as noted in my dictated progress note. Diagnosis: Problems: (1) Impulse control disorder, unspecified (2) PTSD (post-traumatic stress disorder) (3) Anxiety disorder, unspecified (4) Dementia, vascular, with depression (5) Dementia, vascular, with delusions (6) Dementia in Alzheimer's disease with depression (7) Dementia in Alzheimer's disease with delusions (8) Dementia of the Alzheimer's type with early onset with behavioral disturbance (9) Major neurocognitive disorder DUANE NINO MD Sep 22, 2020 22:37
--- NOTE | 2020-09-22 22:52 | NUR ---
Nursing Note The patient was located in the day room and hallways this shift. The patient took his medication crushed/floated in ice cream(un melted). The patient is alert to self only. The patients last documented BM was at least 09/17/20. Patient was given PRN MOM @HS. The patient was restless at HS and was given PRN Trazodone per PRN order.
[2020-09-23] MEDS: ACETAMINOPHEN 325 MG TABLET PO SCH ×2 (06:02→20:36)
[2020-09-23 06:32] VITALS: BP 146/86
[2020-09-23] MEDS: POTASSIUM CHLORIDE 10 MEQ TABLET.ER. PO SCH (08:17)
[2020-09-23] MEDS: MULTIVITAMIN with MINERAL TABLET. PO SCH (08:17)
[2020-09-23] MEDS: ASPIRIN CHEWABLE 81 MG TABLET. PO SCH (08:19)
[2020-09-23] MEDS: QUEtiapine 25 MG TABLET. PO SCH ×4 (08:19→20:36)
[2020-09-23] MEDS: PANTOPRAZOLE 40 MG TABLET. PO SCH (08:19)
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
[2020-09-23 10:10] LABS: BASO % 0 % (0-3); EOS # 0.1 x10^3/uL (0.0-0.7); EOS % 1 % (0-3); HEMOGLOBIN 10.6 g/dL (13.0-17.5); LYMPH # 0.4 x10^3/uL (1.0-4.8); LYMPH % 5 % (24-48); MEAN CORPUSCULAR HEMOGLOBIN 29 pg (25-35); MEAN CORPUSCULAR HGB CONC 33 g/dL (31-37); MEAN CORPUSCULAR VOLUME 87 fL (79-100); MONO # 0.8 x10^3/uL (0.0-1.1); MONO % 10 % (0-9); NEUT # 6.5 x10^3uL (1.8-7.7); NEUT % 83 % (31-73); PLATELET COUNT 232 x10^3/uL (140-400); RED BLOOD COUNT 3.67 x10^6/uL (4.30-5.70); RED CELL DISTRIBUTION WIDTH 15.8 % (11.5-14.5); WHITE BLOOD COUNT 7.8 x10^3/uL (4.0-11.0)
--- NOTE | 2020-09-23 11:35 | NUR ---
Dr Weber contacted about pt's BLE edema and edema in foreskin of penis. Orders given: start Lasix 80 mg PO daily start now, K-Dur 20 mEq PO daily start now, begin daily weights.
[2020-09-23 11:50] LABS: ALBUMIN 2.8 g/dL (3.4-5.0); ALBUMIN/GLOBULIN RATIO 0.9 (1.0-1.7); CREATININE 1.5 mg/dL (0.7-1.3); GFR 45.4; POTASSIUM 4.5 mmol/L (3.5-5.1); TOTAL BILIRUBIN 0.7 mg/dL (0.2-1.0); TOTAL PROTEIN 5.9 g/dL (6.4-8.2)
--- NOTE | 2020-09-23 12:27 | NUR ---
Dr Weber contacted regarding lab values (BUN, Creat, BUN/Creat ratio, AST & ALT). Only orders from Dr Weber at this time are to continue to monitor and BMP on 09/26/20.
[2020-09-23] MEDS ORDERED: FUROSEMIDE 80 MG TABLET PO SCH (13:00)
[2020-09-23] MEDS ORDERED: POTASSIUM CHLORIDE 20 MEQ TABLET.ER. PO SCH (13:00)
[2020-09-23] MEDS: oxyCODONE/APAP 7.5/325 1 TAB TABLET PO PRN (15:50)
--- NOTE | 2020-09-23 15:51 | NUR ---
Pt repeatedly reporting and c/o R rib pain. Unable at this time to rate pain d/t cognitive status. PRN Percoset 7.5 mg PO administered.
[2020-09-23 16:22] VITALS: BP 116/75
[2020-09-23] MEDS: SERTRALINE 100 MG TABLET. PO SCH (17:17)
[2020-09-23] MEDS: ATORVASTATIN CALCIUM 10 MG TABLET. PO SCH (20:36)
[2020-09-23] MEDS: MIRTAZAPINE 15 MG TABLET PO SCH (20:36)
[2020-09-23] MEDS: PRAZOSIN 1 MG CAPSULE. PO SCH (20:37)
--- NOTE | 2020-09-23 21:46 | PDOC ---
Exam Note: Raman Note: Please also refer to the separate dictated note~for this date of service dictated separately.~Patient seen individually. Discussed the patient with Nursing staff reviewed the chart.~Reviewed interim history and current functioning. Reviewed vital signs,~Labs/ Radiology~and current medications noted below. Continue current treatment with the changes noted in the dictated addendum note Assessment: Vital Signs/I&O: Vital Signs Date Time Temp Pulse Resp B/P (MAP) Pulse Ox O2 Delivery O2 Flow Rate FiO2 09/23/20 20:37 67 116/75 09/23/20 17:17 18 09/23/20 16:22 97.0 95 09/23/20 15:50 Room Air I & O 09/22/20 09/22/20 09/23/20 15:00 23:00 07:00 Intake Total 460 ml 480 ml Balance 460 ml 480 ml Labs: Laboratory Tests Test 09/23/20 09:30 White Blood Count 7.8 x10^3/uL (4.0-11.0) Red Blood Count 3.67 x10^6/uL (4.30-5.70) L Hemoglobin 10.6 g/dL (13.0-17.5) L Hematocrit 32.0 % (39.0-53.0) L Mean Corpuscular Volume 87 fL (79-100) Mean Corpuscular Hemoglobin 29 pg (25-35) Mean Corpuscular Hemoglobin Concent 33 g/dL (31-37) Red Cell Distribution Width 15.8 % (11.5-14.5) H Platelet Count 232 x10^3/uL (140-400) Neutrophils (%) (Auto) 83 % (31-73) H Lymphocytes (%) (Auto) 5 % (24-48) L Monocytes (%) (Auto) 10 % (0-9) H Eosinophils (%) (Auto) 1 % (0-3) Basophils (%) (Auto) 0 % (0-3) Neutrophils # (Auto) 6.5 x10^3uL (1.8-7.7) Lymphocytes # (Auto) 0.4 x10^3/uL (1.0-4.8) L Monocytes # (Auto) 0.8 x10^3/uL (0.0-1.1) Eosinophils # (Auto) 0.1 x10^3/uL (0.0-0.7) Basophils # (Auto) 0.0 x10^3/uL (0.0-0.2) Sodium Level 138 mmol/L (136-145) Potassium Level 4.5 mmol/L (3.5-5.1) Chloride Level 101 mmol/L (98-107) Carbon Dioxide Level 31 mmol/L (21-32) Anion Gap 6 (6-14) Blood Urea Nitrogen 71 mg/dL (8-26) H Creatinine 1.5 mg/dL (0.7-1.3) H Estimated GFR (Cockcroft-Gault) 45.4 BUN/Creatinine Ratio 47 (6-20) H Glucose Level 100 mg/dL (70-99) H Calcium Level 8.0 mg/dL (8.5-10.1) L Total Bilirubin 0.7 mg/dL (0.2-1.0) Aspartate Amino Transferase (AST) 177 U/L (15-37) H Alanine Aminotransferase (ALT) 584 U/L (16-63) H Alkaline Phosphatase 83 U/L (46-116) Total Protein 5.9 g/dL (6.4-8.2) L Albumin 2.8 g/dL (3.4-5.0) L Albumin/Globulin Ratio 0.9 (1.0-1.7) L Current Medications: Meds: Laboratory Tests Test 09/23/20 09:30 White Blood Count 7.8 x10^3/uL Red Blood Count 3.67 x10^6/uL Hemoglobin 10.6 g/dL Hematocrit 32.0 % Mean Corpuscular Volume 87 fL Mean Corpuscular Hemoglobin 29 pg Mean Corpuscular Hemoglobin Concent 33 g/dL Red Cell Distribution Width 15.8 % Platelet Count 232 x10^3/uL Neutrophils (%) (Auto) 83 % Lymphocytes (%) (Auto) 5 % Monocytes (%) (Auto) 10 % Eosinophils (%) (Auto) 1 % Basophils (%) (Auto) 0 % Neutrophils # (Auto) 6.5 x10^3uL Lymphocytes # (Auto) 0.4 x10^3/uL Monocytes # (Auto) 0.8 x10^3/uL Eosinophils # (Auto) 0.1 x10^3/uL Basophils # (Auto) 0.0 x10^3/uL Sodium Level 138 mmol/L Potassium Level 4.5 mmol/L Chloride Level 101 mmol/L Carbon Dioxide Level 31 mmol/L Anion Gap 6 Blood Urea Nitrogen 71 mg/dL Creatinine 1.5 mg/dL Estimated GFR (Cockcroft-Gault) 45.4 BUN/Creatinine Ratio 47 Glucose Level 100 mg/dL Calcium Level 8.0 mg/dL Total Bilirubin 0.7 mg/dL Aspartate Amino Transf (AST/SGOT) 177 U/L Alanine Aminotransferase (ALT/SGPT) 584 U/L Alkaline Phosphatase 83 U/L Total Protein 5.9 g/dL Albumin 2.8 g/dL Albumin/Globulin Ratio 0.9 Current Medications Medications (Trade) Dose Ordered Sig/Abundio Route PRN Reason Start Time Stop Time Status Last Admin Dose Admin Acetaminophen (Tylenol) 650 mg PRN Q6HRS PRN PO MILD PAIN / TEMP > 100.3'F 09/17/20 15:30 09/21/20 07:53 DC 09/20/20 20:31 Multi-Ingredient Ointment (Analgesic [place]) 1 will PRN QID PRN TP MUSCLE PAIN 09/17/20 15:30 Al Hydroxide/Mg Hydroxide (Mylanta Plus Xs) 15 ml PRN AFTMEALHC PRN PO DYSPEPSIA 09/17/20 15:30 Magnesium Hydroxide (Milk Of Magnesia) 2,400 mg PRN QHS PRN PO 1st choice CONSTIPATION 09/17/20 15:30 09/22/20 22:26 Acetaminophen (Tylenol) 650 mg BID PO 09/17/20 21:00 09/23/20 20:36 Acetaminophen (Tylenol) 650 mg PRN Q6HRS PRN PO MILD PAIN 1-3/ TEMP 09/17/20 16:15 Aspirin (Aspirin Chewable) 81 mg DAILY PO 09/18/20 09:00 09/23/20 08:19 Atorvastatin Calcium (Lipitor) 10 mg QHS PO 09/17/20 21:00 09/23/20 20:36 Bisacodyl (Dulcolax Supp) 10 mg PRN DAILY PRN RC 2nd choice CONSTIPATION 09/17/20 16:15 Diclofenac Sodium (Voltaren) 1 will PRN Q8HRS PRN TP MUSCLE PAIN 09/17/20 16:15 Divalproex Sodium (Depakote Er) 750 mg QHS PO 09/17/20 21:00 09/23/20 18:19 DC 09/22/20 20:42 Lorazepam (Ativan) 0.5 mg PRN BID PRN PO ANXIETY 09/17/20 16:15 09/20/20 23:12 Mirtazapine (Remeron) 15 mg QHS PO 09/17/20 21:00 09/23/20 20:36 Olanzapine (ZyPREXA ZYDIS) 2.5 mg PRN Q2HR PRN PO ANXIETY / AGITATION 09/17/20 16:15 09/22/20 10:42 Oxycodone/ Acetaminophen (Percocet 7.5/ 325) 1 tab PRN Q8HRS PRN PO MOD-SEVERE PAIN 09/17/20 16:15 09/23/20 15:50 Artificial Tears (Artificial Tears) 1 drop PRN Q15MIN PRN OU DRY EYE 09/17/20 16:15 Prazosin HCl (Minipress) 3 mg QHS PO 09/17/20 21:00 09/23/20 20:37 Quetiapine Fumarate (SEROquel) 37.5 mg 0900,1300,1700 PO 09/17/20 17:00 09/22/20 18:34 DC 09/22/20 16:14 Quetiapine Fumarate (SEROquel) 50 mg PRN DAILY PRN PO ANXIETY / AGITATION 09/17/20 16:15 Quetiapine Fumarate (SEROquel) 100 mg QHS PO 09/17/20 21:00 09/22/20 18:34 DC 09/21/20 20:53 Sertraline HCl (Zoloft) 100 mg DAILY@1700 PO 09/17/20 17:00 09/23/20 17:17 Trazodone HCl (Desyrel) 50 mg PRN QHS PRN PO INSOMNIA, MAY REPEAT X1 09/17/20 16:15 09/22/20 22:28 Loperamide HCl (Imodium) 2 mg PRN Q15MIN PRN PO DIARRHEA 09/17/20 16:30 Multivitamins/ Calcium (Thera-M Plus) 1 tab DAILY PO 09/18/20 09:00 09/21/20 08:09 Pantoprazole Sodium (Protonix) 40 mg DAILYAC PO 09/18/20 07:30 09/23/20 08:19 Potassium Chloride (Klor-Con) 10 meq QODAY PO 09/19/20 09:00 09/23/20 11:34 DC 09/21/20 08:08 Quetiapine Fumarate (SEROquel) 75 mg QHS PO 09/22/20 21:00 09/23/20 20:36 Quetiapine Fumarate (SEROquel) 50 mg 0900,1700 PO 09/23/20 09:00 09/23/20 17:17 Quetiapine Fumarate (SEROquel) 37.5 mg 1300 PO 09/23/20 13:00 09/23/20 12:04 Potassium Chloride (Klor-Con) 20 meq 1300 PO 09/23/20 13:00 09/23/20 19:08 DC 09/23/20 12:03 Furosemide (Lasix) 80 mg 1300 PO 09/23/20 13:00 09/23/20 19:08 DC 09/23/20 12:03 Furosemide (Lasix) 80 mg DAILY PO 09/24/20 09:00 Potassium Chloride (Klor-Con) 20 meq DAILY PO 09/24/20 09:00 Current Medications Medications (Trade) Dose Ordered Sig/Abundio Route PRN Reason Start Time Stop Time Status Last Admin Dose Admin Quetiapine Fumarate (SEROquel) 50 mg 0900,1700 PO 09/23/20 09:00 09/23/20 17:17 Quetiapine Fumarate (SEROquel) 37.5 mg 1300 PO 09/23/20 13:00 09/23/20 12:04 Potassium Chloride (Klor-Con) 20 meq 1300 PO 09/23/20 13:00 09/23/20 19:08 DC 09/23/20 12:03 Furosemide (Lasix) 80 mg 1300 PO 09/23/20 13:00 09/23/20 19:08 DC 09/23/20 12:03 I have reviewed the current psychotropics carefully including drug interactions. Risk benefit ratio favors no change other than as noted in my dictated progress note. Diagnosis: Problems: (1) Impulse control disorder, unspecified (2) PTSD (post-traumatic stress disorder) (3) Anxiety disorder, unspecified (4) Dementia, vascular, with depression (5) Dementia, vascular, with delusions (6) Dementia in Alzheimer's disease with depression (7) Dementia in Alzheimer's disease with delusions (8) Dementia of the Alzheimer's type with early onset with behavioral disturbance (9) Major neurocognitive disorder DUANE NINO MD Sep 23, 2020 21:45
--- NOTE | 2020-09-23 23:13 | NUR ---
Pt wandering unit this evening. Pleasantly confused. Compliant with HS medications crushed in one bite of pudding. No agitation or aggression.
[2020-09-24 06:06] VITALS: BP 131/58
--- NOTE | 2020-09-24 06:53 | PDOC ---
Exam Note: Raman Note: This note is a late entry for 09/21/2020overs elements not covered in my initial note. Subjective: The patient was seen face to face in the evening of 09/21/2020 with Maddie MONTEMAYOR, discussed and reviewed the chart. The patient slept 6-1/4 hours previous night. He had a fall in the morning, slid out off his chair. No injuries noted. He is cooperative, confused, disorganized, compliant with medications. Speech therapy evaluation completed and has been changed to nectar thickened liquids secondary to aspiration risk. Review of Systems: No CV, , pulmonary, eye system symptoms on review. Reliability poor. Mental Status Exam: The patient is oriented to himself. Insight and judgment, recent and remote memory, attention and concentration is poor consistent with his diagnoses. Laboratory Data: Reviewed. Impression: Major neurocognitive disorder Alzheimer vascular with delusion, depression, and behavioral disturbance. Anxiety disorder unspecified. Impulse control disorder unspecified. PTSD. Plan: Continue current psychotropics from initial note. Assessment: Vital Signs/I&O: Vital Signs Date Time Temp Pulse Resp B/P (MAP) Pulse Ox O2 Delivery O2 Flow Rate FiO2 09/24/20 06:06 97.2 79 16 131/58 (82) 95 09/23/20 15:50 Room Air I & O 09/23/20 09/23/20 09/24/20 15:00 23:00 07:00 Intake Total 240 ml 75 ml Balance 240 ml 75 ml Labs: Laboratory Tests Test 09/23/20 09:30 White Blood Count 7.8 x10^3/uL (4.0-11.0) Red Blood Count 3.67 x10^6/uL (4.30-5.70) L Hemoglobin 10.6 g/dL (13.0-17.5) L Hematocrit 32.0 % (39.0-53.0) L Mean Corpuscular Volume 87 fL (79-100) Mean Corpuscular Hemoglobin 29 pg (25-35) Mean Corpuscular Hemoglobin Concent 33 g/dL (31-37) Red Cell Distribution Width 15.8 % (11.5-14.5) H Platelet Count 232 x10^3/uL (140-400) Neutrophils (%) (Auto) 83 % (31-73) H Lymphocytes (%) (Auto) 5 % (24-48) L Monocytes (%) (Auto) 10 % (0-9) H Eosinophils (%) (Auto) 1 % (0-3) Basophils (%) (Auto) 0 % (0-3) Neutrophils # (Auto) 6.5 x10^3uL (1.8-7.7) Lymphocytes # (Auto) 0.4 x10^3/uL (1.0-4.8) L Monocytes # (Auto) 0.8 x10^3/uL (0.0-1.1) Eosinophils # (Auto) 0.1 x10^3/uL (0.0-0.7) Basophils # (Auto) 0.0 x10^3/uL (0.0-0.2) Sodium Level 138 mmol/L (136-145) Potassium Level 4.5 mmol/L (3.5-5.1) Chloride Level 101 mmol/L (98-107) Carbon Dioxide Level 31 mmol/L (21-32) Anion Gap 6 (6-14) Blood Urea Nitrogen 71 mg/dL (8-26) H Creatinine 1.5 mg/dL (0.7-1.3) H Estimated GFR (Cockcroft-Gault) 45.4 BUN/Creatinine Ratio 47 (6-20) H Glucose Level 100 mg/dL (70-99) H Calcium Level 8.0 mg/dL (8.5-10.1) L Total Bilirubin 0.7 mg/dL (0.2-1.0) Aspartate Amino Transferase (AST) 177 U/L (15-37) H Alanine Aminotransferase (ALT) 584 U/L (16-63) H Alkaline Phosphatase 83 U/L (46-116) Total Protein 5.9 g/dL (6.4-8.2) L Albumin 2.8 g/dL (3.4-5.0) L Albumin/Globulin Ratio 0.9 (1.0-1.7) L Current Medications: Meds: Laboratory Tests Test 09/23/20 09:30 White Blood Count 7.8 x10^3/uL Red Blood Count 3.67 x10^6/uL Hemoglobin 10.6 g/dL Hematocrit 32.0 % Mean Corpuscular Volume 87 fL Mean Corpuscular Hemoglobin 29 pg Mean Corpuscular Hemoglobin Concent 33 g/dL Red Cell Distribution Width 15.8 % Platelet Count 232 x10^3/uL Neutrophils (%) (Auto) 83 % Lymphocytes (%) (Auto) 5 % Monocytes (%) (Auto) 10 % Eosinophils (%) (Auto) 1 % Basophils (%) (Auto) 0 % Neutrophils # (Auto) 6.5 x10^3uL Lymphocytes # (Auto) 0.4 x10^3/uL Monocytes # (Auto) 0.8 x10^3/uL Eosinophils # (Auto) 0.1 x10^3/uL Basophils # (Auto) 0.0 x10^3/uL Sodium Level 138 mmol/L Potassium Level 4.5 mmol/L Chloride Level 101 mmol/L Carbon Dioxide Level 31 mmol/L Anion Gap 6 Blood Urea Nitrogen 71 mg/dL Creatinine 1.5 mg/dL Estimated GFR (Cockcroft-Gault) 45.4 BUN/Creatinine Ratio 47 Glucose Level 100 mg/dL Calcium Level 8.0 mg/dL Total Bilirubin 0.7 mg/dL Aspartate Amino Transf (AST/SGOT) 177 U/L Alanine Aminotransferase (ALT/SGPT) 584 U/L Alkaline Phosphatase 83 U/L Total Protein 5.9 g/dL Albumin 2.8 g/dL Albumin/Globulin Ratio 0.9 Current Medications Medications (Trade) Dose Ordered Sig/Abundio Route PRN Reason Start Time Stop Time Status Last Admin Dose Admin Acetaminophen (Tylenol) 650 mg PRN Q6HRS PRN PO MILD PAIN / TEMP > 100.3'F 09/17/20 15:30 09/21/20 07:53 DC 09/20/20 20:31 Multi-Ingredient Ointment (Analgesic [place]) 1 will PRN QID PRN TP MUSCLE PAIN 09/17/20 15:30 Al Hydroxide/Mg Hydroxide (Mylanta Plus Xs) 15 ml PRN AFTMEALHC PRN PO DYSPEPSIA 09/17/20 15:30 Magnesium Hydroxide (Milk Of Magnesia) 2,400 mg PRN QHS PRN PO 1st choice CONSTIPATION 09/17/20 15:30 09/22/20 22:26 Acetaminophen (Tylenol) 650 mg BID PO 09/17/20 21:00 09/23/20 20:36 Acetaminophen (Tylenol) 650 mg PRN Q6HRS PRN PO MILD PAIN 1-3/ TEMP 09/17/20 16:15 Aspirin (Aspirin Chewable) 81 mg DAILY PO 09/18/20 09:00 09/23/20 08:19 Atorvastatin Calcium (Lipitor) 10 mg QHS PO 09/17/20 21:00 09/23/20 20:36 Bisacodyl (Dulcolax Supp) 10 mg PRN DAILY PRN RC 2nd choice CONSTIPATION 09/17/20 16:15 Diclofenac Sodium (Voltaren) 1 will PRN Q8HRS PRN TP MUSCLE PAIN 09/17/20 16:15 Divalproex Sodium (Depakote Er) 750 mg QHS PO 09/17/20 21:00 09/23/20 18:19 DC 09/22/20 20:42 Lorazepam (Ativan) 0.5 mg PRN BID PRN PO ANXIETY 09/17/20 16:15 09/20/20 23:12 Mirtazapine (Remeron) 15 mg QHS PO 09/17/20 21:00 09/23/20 20:36 Olanzapine (ZyPREXA ZYDIS) 2.5 mg PRN Q2HR PRN PO ANXIETY / AGITATION 09/17/20 16:15 09/22/20 10:42 Oxycodone/ Acetaminophen (Percocet 7.5/ 325) 1 tab PRN Q8HRS PRN PO MOD-SEVERE PAIN 09/17/20 16:15 09/23/20 15:50 Artificial Tears (Artificial Tears) 1 drop PRN Q15MIN PRN OU DRY EYE 09/17/20 16:15 Prazosin HCl (Minipress) 3 mg QHS PO 09/17/20 21:00 09/23/20 20:37 Quetiapine Fumarate (SEROquel) 37.5 mg 0900,1300,1700 PO 09/17/20 17:00 09/22/20 18:34 DC 09/22/20 16:14 Quetiapine Fumarate (SEROquel) 50 mg PRN DAILY PRN PO ANXIETY / AGITATION 09/17/20 16:15 Quetiapine Fumarate (SEROquel) 100 mg QHS PO 09/17/20 21:00 09/22/20 18:34 DC 09/21/20 20:53 Sertraline HCl (Zoloft) 100 mg DAILY@1700 PO 09/17/20 17:00 09/23/20 17:17 Trazodone HCl (Desyrel) 50 mg PRN QHS PRN PO INSOMNIA, MAY REPEAT X1 09/17/20 16:15 09/22/20 22:28 Loperamide HCl (Imodium) 2 mg PRN Q15MIN PRN PO DIARRHEA 09/17/20 16:30 Multivitamins/ Calcium (Thera-M Plus) 1 tab DAILY PO 09/18/20 09:00 09/21/20 08:09 Pantoprazole Sodium (Protonix) 40 mg DAILYAC PO 09/18/20 07:30 09/23/20 08:19 Potassium Chloride (Klor-Con) 10 meq QODAY PO 09/19/20 09:00 09/23/20 11:34 DC 09/21/20 08:08 Quetiapine Fumarate (SEROquel) 75 mg QHS PO 09/22/20 21:00 09/23/20 20:36 Quetiapine Fumarate (SEROquel) 50 mg 0900,1700 PO 09/23/20 09:00 09/23/20 17:17 Quetiapine Fumarate (SEROquel) 37.5 mg 1300 PO 09/23/20 13:00 09/23/20 12:04 Potassium Chloride (Klor-Con) 20 meq 1300 PO 09/23/20 13:00 09/23/20 19:08 DC 09/23/20 12:03 Furosemide (Lasix) 80 mg 1300 PO 09/23/20 13:00 09/23/20 19:08 DC 09/23/20 12:03 Furosemide (Lasix) 80 mg DAILY PO 09/24/20 09:00 Potassium Chloride (Klor-Con) 20 meq DAILY PO 09/24/20 09:00 Current Medications Medications (Trade) Dose Ordered Sig/Abundio Route PRN Reason Start Time Stop Time Status Last Admin Dose Admin Quetiapine Fumarate (SEROquel) 50 mg 0900,1700 PO 09/23/20 09:00 09/23/20 17:17 Quetiapine Fumarate (SEROquel) 37.5 mg 1300 PO 09/23/20 13:00 09/23/20 12:04 Potassium Chloride (Klor-Con) 20 meq 1300 PO 09/23/20 13:00 09/23/20 19:08 DC 09/23/20 12:03 Furosemide (Lasix) 80 mg 1300 PO 09/23/20 13:00 09/23/20 19:08 DC 09/23/20 12:03 I have reviewed the current psychotropics carefully including drug interactions. Risk benefit ratio favors no change other than as noted in my dictated progress note. 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
--- NOTE | 2020-09-24 07:03 | PDOC ---
Exam Note: Raman Note: This note is a late entry for 09/22/2020overs elements not covered in my initial note. Subjective: The patient was seen face to face in the evening of 09/22/2020 with Maddie MONTEMAYOR, discussed and reviewed the chart. The patient slept 6-1/4 hours previous night. Speech therapy is recommended changing to dysphagia 2 diet. He takes medications in apple sauce. Liquids changed to honey thickened. He has been repeatedly checking the door, banging on doors, anxious, agitated, paranoid. Received p.r.n. Zyprexa. Review of Systems: No CV, , pulmonary, eye system symptoms on review. Reliability poor. Mental Status Exam: The patient is oriented to himself. Insight and judgment, recent and remote memory, attention and concentration is poor consistent with his diagnoses. Laboratory Data: Reviewed. Impression: Major neurocognitive disorder Alzheimer vascular with delusion, depression, and behavioral disturbance. Anxiety disorder unspecified. Impulse control disorder unspecified. PTSD. Plan: Continue current psychotropics from initial note. We will readjust the patients Seroquel to 50 mg 9 a.m. and 5 p.m. Continue 37.5 mg at 1 p.m. and reduce the night-time dosage from 100 mg to 75 mg. Adjust further as clinically indicated. Assessment: Vital Signs/I&O: Vital Signs Date Time Temp Pulse Resp B/P (MAP) Pulse Ox O2 Delivery O2 Flow Rate FiO2 09/24/20 06:06 97.2 79 16 131/58 (82) 95 09/23/20 15:50 Room Air I & O 09/23/20 09/23/20 09/24/20 15:00 23:00 07:00 Intake Total 240 ml 75 ml Balance 240 ml 75 ml Labs: Laboratory Tests Test 09/23/20 09:30 White Blood Count 7.8 x10^3/uL (4.0-11.0) Red Blood Count 3.67 x10^6/uL (4.30-5.70) L Hemoglobin 10.6 g/dL (13.0-17.5) L Hematocrit 32.0 % (39.0-53.0) L Mean Corpuscular Volume 87 fL (79-100) Mean Corpuscular Hemoglobin 29 pg (25-35) Mean Corpuscular Hemoglobin Concent 33 g/dL (31-37) Red Cell Distribution Width 15.8 % (11.5-14.5) H Platelet Count 232 x10^3/uL (140-400) Neutrophils (%) (Auto) 83 % (31-73) H Lymphocytes (%) (Auto) 5 % (24-48) L Monocytes (%) (Auto) 10 % (0-9) H Eosinophils (%) (Auto) 1 % (0-3) Basophils (%) (Auto) 0 % (0-3) Neutrophils # (Auto) 6.5 x10^3uL (1.8-7.7) Lymphocytes # (Auto) 0.4 x10^3/uL (1.0-4.8) L Monocytes # (Auto) 0.8 x10^3/uL (0.0-1.1) Eosinophils # (Auto) 0.1 x10^3/uL (0.0-0.7) Basophils # (Auto) 0.0 x10^3/uL (0.0-0.2) Sodium Level 138 mmol/L (136-145) Potassium Level 4.5 mmol/L (3.5-5.1) Chloride Level 101 mmol/L (98-107) Carbon Dioxide Level 31 mmol/L (21-32) Anion Gap 6 (6-14) Blood Urea Nitrogen 71 mg/dL (8-26) H Creatinine 1.5 mg/dL (0.7-1.3) H Estimated GFR (Cockcroft-Gault) 45.4 BUN/Creatinine Ratio 47 (6-20) H Glucose Level 100 mg/dL (70-99) H Calcium Level 8.0 mg/dL (8.5-10.1) L Total Bilirubin 0.7 mg/dL (0.2-1.0) Aspartate Amino Transferase (AST) 177 U/L (15-37) H Alanine Aminotransferase (ALT) 584 U/L (16-63) H Alkaline Phosphatase 83 U/L (46-116) Total Protein 5.9 g/dL (6.4-8.2) L Albumin 2.8 g/dL (3.4-5.0) L Albumin/Globulin Ratio 0.9 (1.0-1.7) L Current Medications: Meds: Laboratory Tests Test 09/23/20 09:30 White Blood Count 7.8 x10^3/uL Red Blood Count 3.67 x10^6/uL Hemoglobin 10.6 g/dL Hematocrit 32.0 % Mean Corpuscular Volume 87 fL Mean Corpuscular Hemoglobin 29 pg Mean Corpuscular Hemoglobin Concent 33 g/dL Red Cell Distribution Width 15.8 % Platelet Count 232 x10^3/uL Neutrophils (%) (Auto) 83 % Lymphocytes (%) (Auto) 5 % Monocytes (%) (Auto) 10 % Eosinophils (%) (Auto) 1 % Basophils (%) (Auto) 0 % Neutrophils # (Auto) 6.5 x10^3uL Lymphocytes # (Auto) 0.4 x10^3/uL Monocytes # (Auto) 0.8 x10^3/uL Eosinophils # (Auto) 0.1 x10^3/uL Basophils # (Auto) 0.0 x10^3/uL Sodium Level 138 mmol/L Potassium Level 4.5 mmol/L Chloride Level 101 mmol/L Carbon Dioxide Level 31 mmol/L Anion Gap 6 Blood Urea Nitrogen 71 mg/dL Creatinine 1.5 mg/dL Estimated GFR (Cockcroft-Gault) 45.4 BUN/Creatinine Ratio 47 Glucose Level 100 mg/dL Calcium Level 8.0 mg/dL Total Bilirubin 0.7 mg/dL Aspartate Amino Transf (AST/SGOT) 177 U/L Alanine Aminotransferase (ALT/SGPT) 584 U/L Alkaline Phosphatase 83 U/L Total Protein 5.9 g/dL Albumin 2.8 g/dL Albumin/Globulin Ratio 0.9 Current Medications Medications (Trade) Dose Ordered Sig/Abundio Route PRN Reason Start Time Stop Time Status Last Admin Dose Admin Acetaminophen (Tylenol) 650 mg PRN Q6HRS PRN PO MILD PAIN / TEMP > 100.3'F 09/17/20 15:30 09/21/20 07:53 DC 09/20/20 20:31 Multi-Ingredient Ointment (Analgesic [place]) 1 will PRN QID PRN TP MUSCLE PAIN 09/17/20 15:30 Al Hydroxide/Mg Hydroxide (Mylanta Plus Xs) 15 ml PRN AFTMEALHC PRN PO DYSPEPSIA 09/17/20 15:30 Magnesium Hydroxide (Milk Of Magnesia) 2,400 mg PRN QHS PRN PO 1st choice CONSTIPATION 09/17/20 15:30 09/22/20 22:26 Acetaminophen (Tylenol) 650 mg BID PO 09/17/20 21:00 09/23/20 20:36 Acetaminophen (Tylenol) 650 mg PRN Q6HRS PRN PO MILD PAIN 1-3/ TEMP 09/17/20 16:15 Aspirin (Aspirin Chewable) 81 mg DAILY PO 09/18/20 09:00 09/23/20 08:19 Atorvastatin Calcium (Lipitor) 10 mg QHS PO 09/17/20 21:00 09/23/20 20:36 Bisacodyl (Dulcolax Supp) 10 mg PRN DAILY PRN RC 2nd choice CONSTIPATION 09/17/20 16:15 Diclofenac Sodium (Voltaren) 1 will PRN Q8HRS PRN TP MUSCLE PAIN 09/17/20 16:15 Divalproex Sodium (Depakote Er) 750 mg QHS PO 09/17/20 21:00 09/23/20 18:19 DC 09/22/20 20:42 Lorazepam (Ativan) 0.5 mg PRN BID PRN PO ANXIETY 09/17/20 16:15 09/20/20 23:12 Mirtazapine (Remeron) 15 mg QHS PO 09/17/20 21:00 09/23/20 20:36 Olanzapine (ZyPREXA ZYDIS) 2.5 mg PRN Q2HR PRN PO ANXIETY / AGITATION 09/17/20 16:15 09/22/20 10:42 Oxycodone/ Acetaminophen (Percocet 7.5/ 325) 1 tab PRN Q8HRS PRN PO MOD-SEVERE PAIN 09/17/20 16:15 09/23/20 15:50 Artificial Tears (Artificial Tears) 1 drop PRN Q15MIN PRN OU DRY EYE 09/17/20 16:15 Prazosin HCl (Minipress) 3 mg QHS PO 09/17/20 21:00 09/23/20 20:37 Quetiapine Fumarate (SEROquel) 37.5 mg 0900,1300,1700 PO 09/17/20 17:00 09/22/20 18:34 DC 09/22/20 16:14 Quetiapine Fumarate (SEROquel) 50 mg PRN DAILY PRN PO ANXIETY / AGITATION 09/17/20 16:15 Quetiapine Fumarate (SEROquel) 100 mg QHS PO 09/17/20 21:00 09/22/20 18:34 DC 09/21/20 20:53 Sertraline HCl (Zoloft) 100 mg DAILY@1700 PO 09/17/20 17:00 09/23/20 17:17 Trazodone HCl (Desyrel) 50 mg PRN QHS PRN PO INSOMNIA, MAY REPEAT X1 09/17/20 16:15 09/22/20 22:28 Loperamide HCl (Imodium) 2 mg PRN Q15MIN PRN PO DIARRHEA 09/17/20 16:30 Multivitamins/ Calcium (Thera-M Plus) 1 tab DAILY PO 09/18/20 09:00 09/21/20 08:09 Pantoprazole Sodium (Protonix) 40 mg DAILYAC PO 09/18/20 07:30 09/23/20 08:19 Potassium Chloride (Klor-Con) 10 meq QODAY PO 09/19/20 09:00 09/23/20 11:34 DC 09/21/20 08:08 Quetiapine Fumarate (SEROquel) 75 mg QHS PO 09/22/20 21:00 09/23/20 20:36 Quetiapine Fumarate (SEROquel) 50 mg 0900,1700 PO 09/23/20 09:00 09/23/20 17:17 Quetiapine Fumarate (SEROquel) 37.5 mg 1300 PO 09/23/20 13:00 09/23/20 12:04 Potassium Chloride (Klor-Con) 20 meq 1300 PO 09/23/20 13:00 09/23/20 19:08 DC 09/23/20 12:03 Furosemide (Lasix) 80 mg 1300 PO 09/23/20 13:00 09/23/20 19:08 DC 09/23/20 12:03 Furosemide (Lasix) 80 mg DAILY PO 09/24/20 09:00 Potassium Chloride (Klor-Con) 20 meq DAILY PO 09/24/20 09:00 Current Medications Medications (Trade) Dose Ordered Sig/Abundio Route PRN Reason Start Time Stop Time Status Last Admin Dose Admin Quetiapine Fumarate (SEROquel) 50 mg 0900,1700 PO 09/23/20 09:00 09/23/20 17:17 Quetiapine Fumarate (SEROquel) 37.5 mg 1300 PO 09/23/20 13:00 09/23/20 12:04 Potassium Chloride (Klor-Con) 20 meq 1300 PO 09/23/20 13:00 09/23/20 19:08 DC 09/23/20 12:03 Furosemide (Lasix) 80 mg 1300 PO 09/23/20 13:00 09/23/20 19:08 DC 09/23/20 12:03 I have reviewed the current psychotropics carefully including drug interactions. Risk benefit ratio favors no change other than as noted in my dictated progress note. Diagnosis: Problems: (1) Impulse control disorder, unspecified (2) PTSD (post-traumatic stress disorder) (3) Anxiety disorder, unspecified (4) Dementia, vascular, with depression (5) Dementia, vascular, with delusions (6) Dementia in Alzheimer's disease with depression (7) Dementia in Alzheimer's disease with delusions (8) Dementia of the Alzheimer's type with early onset with behavioral disturbance (9) Major neurocognitive disorder DUANE NINO MD Sep 24, 2020 07:03
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
[2020-09-24] MEDS: POTASSIUM CHLORIDE 20 MEQ TABLET.ER. PO SCH (07:57)
[2020-09-24] MEDS: MULTIVITAMIN with MINERAL TABLET. PO SCH (07:57)
[2020-09-24] MEDS: QUEtiapine 25 MG TABLET. PO SCH ×4 (07:58→20:34)
[2020-09-24] MEDS: ACETAMINOPHEN 325 MG TABLET PO SCH ×2 (07:58→20:34)
[2020-09-24] MEDS: PANTOPRAZOLE 40 MG TABLET. PO SCH (07:58)
[2020-09-24] MEDS: FUROSEMIDE 80 MG TABLET PO SCH (07:58)
[2020-09-24] MEDS: ASPIRIN CHEWABLE 81 MG TABLET. PO SCH (07:58)
--- NOTE | 2020-09-24 14:22 | NUR ---
Faxed weekend notes, labs, and current medication list to Jacinda at [facility] per request. Tentative d/c date of 09/27/20. Awaiting return call from Jacinda.
--- NOTE | 2020-09-24 15:03 | NUR ---
Pt has been medication compliant and cooperative. He is disorganized and pleasantly confused. He has been slightly wobbly on his feet, but ambulating and getting around on his own. Pt has been calmly hanging out quietly in the day room majority of the day.
[2020-09-24 16:12] VITALS: BP 107/72
[2020-09-24] MEDS: SERTRALINE 100 MG TABLET. PO SCH (17:16)
[2020-09-24] MEDS: ATORVASTATIN CALCIUM 10 MG TABLET. PO SCH (20:33)
[2020-09-24] MEDS: MIRTAZAPINE 15 MG TABLET PO SCH (20:33)
[2020-09-24] MEDS: PRAZOSIN 1 MG CAPSULE. PO SCH (20:34)
--- NOTE | 2020-09-24 22:01 | PDOC ---
Exam Note: Raman Note: Please also refer to the separate dictated note~for this date of service dictated separately.~Patient seen individually. Discussed the patient with Nursing staff reviewed the chart.~Reviewed interim history and current functioning. Reviewed vital signs,~Labs/ Radiology~and current medications noted below. Continue current treatment with the changes noted in the dictated addendum note Assessment: Vital Signs/I&O: Vital Signs Date Time Temp Pulse Resp B/P (MAP) Pulse Ox O2 Delivery O2 Flow Rate FiO2 09/24/20 20:34 80 107/72 09/24/20 16:12 97.2 16 97 09/23/20 15:50 Room Air I & O 09/23/20 09/23/20 09/24/20 15:00 23:00 07:00 Intake Total 240 ml 75 ml Balance 240 ml 75 ml Current Medications: Meds: Current Medications Medications (Trade) Dose Ordered Sig/Abundio Route PRN Reason Start Time Stop Time Status Last Admin Dose Admin Acetaminophen (Tylenol) 650 mg PRN Q6HRS PRN PO MILD PAIN / TEMP > 100.3'F 09/17/20 15:30 09/21/20 07:53 DC 09/20/20 20:31 Multi-Ingredient Ointment (Analgesic [place]) 1 will PRN QID PRN TP MUSCLE PAIN 09/17/20 15:30 Al Hydroxide/Mg Hydroxide (Mylanta Plus Xs) 15 ml PRN AFTMEALHC PRN PO DYSPEPSIA 09/17/20 15:30 Magnesium Hydroxide (Milk Of Magnesia) 2,400 mg PRN QHS PRN PO 1st choice CONSTIPATION 09/17/20 15:30 09/22/20 22:26 Acetaminophen (Tylenol) 650 mg BID PO 09/17/20 21:00 09/24/20 20:34 Acetaminophen (Tylenol) 650 mg PRN Q6HRS PRN PO MILD PAIN 1-3/ TEMP 09/17/20 16:15 Aspirin (Aspirin Chewable) 81 mg DAILY PO 09/18/20 09:00 09/24/20 07:58 Atorvastatin Calcium (Lipitor) 10 mg QHS PO 09/17/20 21:00 09/24/20 20:33 Bisacodyl (Dulcolax Supp) 10 mg PRN DAILY PRN RC 2nd choice CONSTIPATION 09/17/20 16:15 Diclofenac Sodium (Voltaren) 1 will PRN Q8HRS PRN TP MUSCLE PAIN 09/17/20 16:15 Divalproex Sodium (Depakote Er) 750 mg QHS PO 09/17/20 21:00 09/23/20 18:19 DC 09/22/20 20:42 Lorazepam (Ativan) 0.5 mg PRN BID PRN PO ANXIETY 09/17/20 16:15 09/20/20 23:12 Mirtazapine (Remeron) 15 mg QHS PO 09/17/20 21:00 09/24/20 20:33 Olanzapine (ZyPREXA ZYDIS) 2.5 mg PRN Q2HR PRN PO ANXIETY / AGITATION 09/17/20 16:15 09/22/20 10:42 Oxycodone/ Acetaminophen (Percocet 7.5/ 325) 1 tab PRN Q8HRS PRN PO MOD-SEVERE PAIN 09/17/20 16:15 09/23/20 15:50 Artificial Tears (Artificial Tears) 1 drop PRN Q15MIN PRN OU DRY EYE 09/17/20 16:15 Prazosin HCl (Minipress) 3 mg QHS PO 09/17/20 21:00 09/24/20 20:34 Quetiapine Fumarate (SEROquel) 37.5 mg 0900,1300,1700 PO 09/17/20 17:00 09/22/20 18:34 DC 09/22/20 16:14 Quetiapine Fumarate (SEROquel) 50 mg PRN DAILY PRN PO ANXIETY / AGITATION 09/17/20 16:15 Quetiapine Fumarate (SEROquel) 100 mg QHS PO 09/17/20 21:00 09/22/20 18:34 DC 09/21/20 20:53 Sertraline HCl (Zoloft) 100 mg DAILY@1700 PO 09/17/20 17:00 09/24/20 17:16 Trazodone HCl (Desyrel) 50 mg PRN QHS PRN PO INSOMNIA, MAY REPEAT X1 09/17/20 16:15 09/22/20 22:28 Loperamide HCl (Imodium) 2 mg PRN Q15MIN PRN PO DIARRHEA 09/17/20 16:30 Multivitamins/ Calcium (Thera-M Plus) 1 tab DAILY PO 09/18/20 09:00 09/24/20 07:57 Pantoprazole Sodium (Protonix) 40 mg DAILYAC PO 09/18/20 07:30 09/24/20 07:58 Potassium Chloride (Klor-Con) 10 meq QODAY PO 09/19/20 09:00 09/23/20 11:34 DC 09/21/20 08:08 Quetiapine Fumarate (SEROquel) 75 mg QHS PO 09/22/20 21:00 09/24/20 20:34 Quetiapine Fumarate (SEROquel) 50 mg 0900,1700 PO 09/23/20 09:00 09/24/20 17:16 Quetiapine Fumarate (SEROquel) 37.5 mg 1300 PO 09/23/20 13:00 09/24/20 12:35 Potassium Chloride (Klor-Con) 20 meq 1300 PO 09/23/20 13:00 09/23/20 19:08 DC 09/23/20 12:03 Furosemide (Lasix) 80 mg 1300 PO 09/23/20 13:00 09/23/20 19:08 DC 09/23/20 12:03 Furosemide (Lasix) 80 mg DAILY PO 09/24/20 09:00 09/24/20 07:58 Potassium Chloride (Klor-Con) 20 meq DAILY PO 09/24/20 09:00 09/24/20 07:57 Current Medications Medications (Trade) Dose Ordered Sig/Abundio Route PRN Reason Start Time Stop Time Status Last Admin Dose Admin Furosemide (Lasix) 80 mg DAILY PO 09/24/20 09:00 09/24/20 07:58 Potassium Chloride (Klor-Con) 20 meq DAILY PO 09/24/20 09:00 09/24/20 07:57 I have reviewed the current psychotropics carefully including drug interactions. Risk benefit ratio favors no change other than as noted in my dictated progress note. Diagnosis: Problems: (1) Impulse control disorder, unspecified (2) PTSD (post-traumatic stress disorder) (3) Anxiety disorder, unspecified (4) Dementia, vascular, with depression (5) Dementia, vascular, with delusions (6) Dementia in Alzheimer's disease with depression (7) Dementia in Alzheimer's disease with delusions (8) Dementia of the Alzheimer's type with early onset with behavioral distu rbance (9) Major neurocognitive disorder DUANE NINO MD Sep 24, 2020 22:00
--- NOTE | 2020-09-24 22:55 | NUR ---
Pt wandering unit this evening, restless and intrusive with peers. Compliant with redirection. Compliant with medications crushed in one bite of pudding.
[2020-09-25 06:09] VITALS: BP 123/77
[2020-09-25 06:23] LABS: BASO % 0 % (0-3); EOS # 0.1 x10^3/uL (0.0-0.7); EOS % 1 % (0-3); HEMATOCRIT 32.3 % (39.0-53.0); HEMOGLOBIN 10.5 g/dL (13.0-17.5); LYMPH # 0.6 x10^3/uL (1.0-4.8); LYMPH % 10 % (24-48); MEAN CORPUSCULAR HEMOGLOBIN 29 pg (25-35); MEAN CORPUSCULAR HGB CONC 33 g/dL (31-37); MEAN CORPUSCULAR VOLUME 88 fL (79-100); MONO % 18 % (0-9); NEUT % 71 % (31-73); PLATELET COUNT 201 x10^3/uL (140-400); RED BLOOD COUNT 3.69 x10^6/uL (4.30-5.70); RED CELL DISTRIBUTION WIDTH 15.7 % (11.5-14.5); WHITE BLOOD COUNT 5.6 x10^3/uL (4.0-11.0)
[2020-09-25 06:34] LABS: ALBUMIN 2.6 g/dL (3.4-5.0); ALBUMIN/GLOBULIN RATIO 0.8 (1.0-1.7); CREATININE 0.9 mg/dL (0.7-1.3); GFR 81.8; POTASSIUM 4.1 mmol/L (3.5-5.1); TOTAL BILIRUBIN 0.8 mg/dL (0.2-1.0); TOTAL PROTEIN 5.8 g/dL (6.4-8.2)
[2020-09-25] MEDS: ASPIRIN CHEWABLE 81 MG TABLET. PO SCH (08:10)
[2020-09-25] MEDS: ACETAMINOPHEN 325 MG TABLET PO SCH ×2 (08:10→20:48)
[2020-09-25] MEDS: LORazepam 0.5 MG TABLET PO PRN ×2 (08:10→18:36)
[2020-09-25] MEDS: MULTIVITAMIN with MINERAL TABLET. PO SCH (08:10)
[2020-09-25] MEDS: PANTOPRAZOLE 40 MG TABLET. PO SCH (08:11)
[2020-09-25] MEDS: POTASSIUM CHLORIDE 20 MEQ TABLET.ER. PO SCH (08:11)
[2020-09-25] MEDS: QUEtiapine 25 MG TABLET. PO SCH ×4 (08:11→20:47)
[2020-09-25] MEDS: FUROSEMIDE 80 MG TABLET PO SCH (08:11)
--- NOTE | 2020-09-25 10:40 | NUR ---
Pt remains confused and disorganized this shift, he briefly displayed a period of delusion when speaking about a "little girl" as if she were somewhere on the unit. This morning to held onto EVS' mop and would not let go, it required multiple staff members to release his clinical dietetic technician from it d/t his inability to be redirected or follow staff directions. He was not attempting to use the mop aggressively towards others, he just wanted to hold it and not let go. Shortly before breakfast he was displaying increasing anxiety and difficulty following staff directions, PRN Ativan 0.5 mg PO administered. His appetite during breakfast appeared adequate, he seems to be tolerating Dysphagia II diet and honey thick liquids well. He is compliant with medications crushed/dissolved and mixed into honey thick apple juice. He is a daily weight d/t edema per Dr Weber. He c/o pain in the R hip/flank area, he is unable to rate on a 1-10 scare, PAINAD score 4. Scheduled Acetaminophen was administered with morning medications and reassessment is pending. Absent of SI/HI/VH/AH at this time. Plan of care continues, will pass to next shift.
--- NOTE | 2020-09-25 13:28 | NUR ---
[facility] Social Work Discharge Planning Form Patient Name MADHUNIEVES BONILLA Admit Date: 08/27/20, re-admit 09/17/20 after 10 day quarantine DISCHARGE PLAN Discharge Destination: [facility] Care Assessment: Previously completed Transportation: [facility] to transport on 09/27/20, brain picker time to be determined. Special Instructions/Notes: Upon return to [facility], schedule f/u appointment with PCP/house physician in 7-14 days. Eric has an appointment at the [facility], Dr. Sutton, on 10/18/20 at 1:30pm. [facility] is located at [address] [address], [address], 1st floor, room [address]. DISCHARGE TO FACILITY Facility: [facility] Address: [address] [place] [address] Contact Name: dulce Michaud Contact Name: RENE Hutson PCP: Dr. Harry Samson, , (fax) Psychiatrist: Dr. Sutton [phone] ext [phone], (fax)
[2020-09-25 15:51] VITALS: BP 122/62
--- NOTE | 2020-09-25 16:14 | NUR ---
Update provided to Heidy, /POA, regarding upcoming discharge to [facility] on 09/27/20. Heidy has spoken to the [facility] and Eric's glasses have been repaired and are being mailed to her. Heidy will also call [facility] to ask if they will be ordering Eric's medications from the [facility] for his upcoming readmission. Awaiting transport time from [facility] for d/c.
[2020-09-25] MEDS: SERTRALINE 100 MG TABLET. PO SCH (17:23)
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
[2020-09-25] MEDS: carBAMazepine 100 MG TAB.CHEW PO SCH (20:15)
[2020-09-25] MEDS: ATORVASTATIN CALCIUM 10 MG TABLET. PO SCH (20:47)
[2020-09-25] MEDS: PRAZOSIN 1 MG CAPSULE. PO SCH (20:47)
[2020-09-25] MEDS: MIRTAZAPINE 15 MG TABLET PO SCH (20:47)
--- NOTE | 2020-09-25 21:53 | PDOC ---
Exam Note: Raman Note: Please also refer to the separate dictated note~for this date of service dictated separately.~Patient seen individually. Discussed the patient with Nursing staff reviewed the chart.~Reviewed interim history and current functioning. Reviewed vital signs,~Labs/ Radiology~and current medications noted below. Continue current treatment with the changes noted in the dictated addendum note Assessment: Vital Signs/I&O: Vital Signs Date Time Temp Pulse Resp B/P (MAP) Pulse Ox O2 Delivery O2 Flow Rate FiO2 09/25/20 20:47 78 122/62 09/25/20 15:51 97.2 18 99 09/23/20 15:50 Room Air I & O 09/24/20 09/24/20 09/25/20 15:00 23:00 07:00 Intake Total 600 ml 240 ml Balance 600 ml 240 ml Labs: Laboratory Tests Test 09/25/20 06:10 White Blood Count 5.6 x10^3/uL (4.0-11.0) Red Blood Count 3.69 x10^6/uL (4.30-5.70) L Hemoglobin 10.5 g/dL (13.0-17.5) L Hematocrit 32.3 % (39.0-53.0) L Mean Corpuscular Volume 88 fL (79-100) Mean Corpuscular Hemoglobin 29 pg (25-35) Mean Corpuscular Hemoglobin Concent 33 g/dL (31-37) Red Cell Distribution Width 15.7 % (11.5-14.5) H Platelet Count 201 x10^3/uL (140-400) Neutrophils (%) (Auto) 71 % (31-73) Lymphocytes (%) (Auto) 10 % (24-48) L Monocytes (%) (Auto) 18 % (0-9) H Eosinophils (%) (Auto) 1 % (0-3) Basophils (%) (Auto) 0 % (0-3) Neutrophils # (Auto) 4.0 x10^3uL (1.8-7.7) Lymphocytes # (Auto) 0.6 x10^3/uL (1.0-4.8) L Monocytes # (Auto) 1.0 x10^3/uL (0.0-1.1) Eosinophils # (Auto) 0.1 x10^3/uL (0.0-0.7) Basophils # (Auto) 0.0 x10^3/uL (0.0-0.2) Sodium Level 145 mmol/L (136-145) Potassium Level 4.1 mmol/L (3.5-5.1) Chloride Level 108 mmol/L (98-107) H Carbon Dioxide Level 33 mmol/L (21-32) H Anion Gap 4 (6-14) L Blood Urea Nitrogen 46 mg/dL (8-26) H Creatinine 0.9 mg/dL (0.7-1.3) Estimated GFR (Cockcroft-Gault) 81.8 BUN/Creatinine Ratio 51 (6-20) H Glucose Level 107 mg/dL (70-99) H Calcium Level 8.0 mg/dL (8.5-10.1) L Total Bilirubin 0.8 mg/dL (0.2-1.0) Aspartate Amino Transferase (AST) 57 U/L (15-37) H Alanine Aminotransferase (ALT) 314 U/L (16-63) H Alkaline Phosphatase 76 U/L (46-116) Total Protein 5.8 g/dL (6.4-8.2) L Albumin 2.6 g/dL (3.4-5.0) L Albumin/Globulin Ratio 0.8 (1.0-1.7) L Current Medications: Meds: Laboratory Tests Test 09/25/20 06:10 White Blood Count 5.6 x10^3/uL Red Blood Count 3.69 x10^6/uL Hemoglobin 10.5 g/dL Hematocrit 32.3 % Mean Corpuscular Volume 88 fL Mean Corpuscular Hemoglobin 29 pg Mean Corpuscular Hemoglobin Concent 33 g/dL Red Cell Distribution Width 15.7 % Platelet Count 201 x10^3/uL Neutrophils (%) (Auto) 71 % Lymphocytes (%) (Auto) 10 % Monocytes (%) (Auto) 18 % Eosinophils (%) (Auto) 1 % Basophils (%) (Auto) 0 % Neutrophils # (Auto) 4.0 x10^3uL Lymphocytes # (Auto) 0.6 x10^3/uL Monocytes # (Auto) 1.0 x10^3/uL Eosinophils # (Auto) 0.1 x10^3/uL Basophils # (Auto) 0.0 x10^3/uL Sodium Level 145 mmol/L Potassium Level 4.1 mmol/L Chloride Level 108 mmol/L Carbon Dioxide Level 33 mmol/L Anion Gap 4 Blood Urea Nitrogen 46 mg/dL Creatinine 0.9 mg/dL Estimated GFR (Cockcroft-Gault) 81.8 BUN/Creatinine Ratio 51 Glucose Level 107 mg/dL Calcium Level 8.0 mg/dL Total Bilirubin 0.8 mg/dL Aspartate Amino Transf (AST/SGOT) 57 U/L Alanine Aminotransferase (ALT/SGPT) 314 U/L Alkaline Phosphatase 76 U/L Total Protein 5.8 g/dL Albumin 2.6 g/dL Albumin/Globulin Ratio 0.8 Current Medications Medications (Trade) Dose Ordered Sig/Abundio Route PRN Reason Start Time Stop Time Status Last Admin Dose Admin Acetaminophen (Tylenol) 650 mg PRN Q6HRS PRN PO MILD PAIN / TEMP > 100.3'F 09/17/20 15:30 09/21/20 07:53 DC 09/20/20 20:31 Multi-Ingredient Ointment (Analgesic [place]) 1 will PRN QID PRN TP MUSCLE PAIN 09/17/20 15:30 Al Hydroxide/Mg Hydroxide (Mylanta Plus Xs) 15 ml PRN AFTMEALHC PRN PO DYSPEPSIA 09/17/20 15:30 Magnesium Hydroxide (Milk Of Magnesia) 2,400 mg PRN QHS PRN PO 1st choice CONSTIPATION 09/17/20 15:30 09/22/20 22:26 Acetaminophen (Tylenol) 650 mg BID PO 09/17/20 21:00 09/25/20 20:48 Acetaminophen (Tylenol) 650 mg PRN Q6HRS PRN PO MILD PAIN 1-3/ TEMP 09/17/20 16:15 Aspirin (Aspirin Chewable) 81 mg DAILY PO 09/18/20 09:00 09/25/20 08:10 Atorvastatin Calcium (Lipitor) 10 mg QHS PO 09/17/20 21:00 09/25/20 20:47 Bisacodyl (Dulcolax Supp) 10 mg PRN DAILY PRN RC 2nd choice CONSTIPATION 09/17/20 16:15 Diclofenac Sodium (Voltaren) 1 will PRN Q8HRS PRN TP MUSCLE PAIN 09/17/20 16:15 Divalproex Sodium (Depakote Er) 750 mg QHS PO 09/17/20 21:00 09/23/20 18:19 DC 09/22/20 20:42 Lorazepam (Ativan) 0.5 mg PRN BID PRN PO 1ST CHOICE ANXIETY 09/17/20 16:15 09/25/20 18:36 Mirtazapine (Remeron) 15 mg QHS PO 09/17/20 21:00 09/25/20 20:47 Olanzapine (ZyPREXA ZYDIS) 2.5 mg PRN Q2HR PRN PO 2ND CHOICE ANXIETY / AGITATION 09/17/20 16:15 09/22/20 10:42 Oxycodone/ Acetaminophen (Percocet 7.5/ 325) 1 tab PRN Q8HRS PRN PO MOD-SEVERE PAIN 09/17/20 16:15 09/23/20 15:50 Artificial Tears (Artificial Tears) 1 drop PRN Q15MIN PRN OU DRY EYE 09/17/20 16:15 Prazosin HCl (Minipress) 3 mg QHS PO 09/17/20 21:00 09/25/20 20:47 Quetiapine Fumarate (SEROquel) 37.5 mg 0900,1300,1700 PO 09/17/20 17:00 09/22/20 18:34 DC 09/22/20 16:14 Quetiapine Fumarate (SEROquel) 50 mg PRN DAILY PRN PO 3RD CHOICE ANXIETY / AGITATION 09/17/20 16:15 Quetiapine Fumarate (SEROquel) 100 mg QHS PO 09/17/20 21:00 09/22/20 18:34 DC 09/21/20 20:53 Sertraline HCl (Zoloft) 100 mg DAILY@1700 PO 09/17/20 17:00 09/25/20 17:23 Trazodone HCl (Desyrel) 50 mg PRN QHS PRN PO INSOMNIA, MAY REPEAT X1 09/17/20 16:15 09/22/20 22:28 Loperamide HCl (Imodium) 2 mg PRN Q15MIN PRN PO DIARRHEA 09/17/20 16:30 Multivitamins/ Calcium (Thera-M Plus) 1 tab DAILY PO 09/18/20 09:00 09/25/20 08:10 Pantoprazole Sodium (Protonix) 40 mg DAILYAC PO 09/18/20 07:30 09/25/20 08:11 Potassium Chloride (Klor-Con) 10 meq QODAY PO 09/19/20 09:00 09/23/20 11:34 DC 09/21/20 08:08 Quetiapine Fumarate (SEROquel) 75 mg QHS PO 09/22/20 21:00 09/25/20 20:47 Quetiapine Fumarate (SEROquel) 50 mg 0900,1700 PO 09/23/20 09:00 09/25/20 17:23 Quetiapine Fumarate (SEROquel) 37.5 mg 1300 PO 09/23/20 13:00 09/25/20 12:20 Potassium Chloride (Klor-Con) 20 meq 1300 PO 09/23/20 13:00 09/23/20 19:08 DC 09/23/20 12:03 Furosemide (Lasix) 80 mg 1300 PO 09/23/20 13:00 09/23/20 19:08 DC 09/23/20 12:03 Furosemide (Lasix) 80 mg DAILY PO 09/24/20 09:00 09/25/20 08:11 Potassium Chloride (Klor-Con) 20 meq DAILY PO 09/24/20 09:00 09/25/20 08:11 Carbamazepine (TEGretol) 100 mg DAILY@0900,1700 PO 09/25/20 20:15 I have reviewed the current psychotropics carefully including drug interactions. Risk benefit ratio favors no change other than as noted in my dictated progress note. Diagnosis: Problems: (1) Impulse control disorder, unspecified (2) PTSD (post-traumatic stress disorder) (3) Anxiety disorder, unspecified (4) Dementia, vascular, with depression (5) Dementia, vascular, with delusions (6) Dementia in Alzheimer's disease with depression (7) Dementia in Alzheimer's disease with delusions (8) Dementia of the Alzheimer's type with early onset with behavioral disturbance (9) Major neurocognitive disorder DUANE NINO MD Sep 25, 2020 21:53
--- NOTE | 2020-09-25 23:52 | NUR ---
Nursing note Pt roaming [place], takes meds in [place], compliant. Social with peers, no behaviors so far.
[2020-09-26 03:53] LABS: BACTERIA,URINE 0 /HPF (0-FEW); BILIRUBIN,URINE NEG (NEG); CLARITY,URINE CLEAR; COLOR,URINE YELLOW; GLUCOSE,URINE NEG (NEG); NITRITE,URINE NEG (NEG); RBC,URINE 0 /HPF (0-2); SQUAMOUS EPITHELIAL CELL,UR OCC /LPF; UROBILINOGEN,URINE >=8.0 mg/dL (0.2 mg/dL); WBC,URINE OCC /HPF (0-4)
[2020-09-26 06:15] VITALS: BP 117/62
--- NOTE | 2020-09-26 06:21 | PDOC ---
Exam Note: Raman Note: This note is a late entry for 09/24/2020overs elements not covered in my initial note. Subjective: The patient was seen face to face in the evening of 09/24/2020 with Almita MONTEMAYOR, discussed and reviewed the chart. The patient slept 8 hours previous night. He remains confused, unsteady in his gait. AST and ALT were elevated. Depakote is being stopped. We will repeat labs on 09/25. BUN 71. He remains on honey thickened liquids. Review of Systems: No CV, , pulmonary, eye system symptoms on review. Reliability poor. Mental Status Exam: The patient is oriented to himself. I met with him in his room. Insight and judgment, recent and remote memory, attention and concentration is poor consistent with his diagnoses. Laboratory Data: Reviewed. Impression: Major neurocognitive disorder Alzheimer vascular with delusion, depression, and behavioral disturbance. Anxiety disorder unspecified. Impulse control disorder unspecified. PTSD. Plan: Continue current psychotropics. Received informed consent. Adjust as clinically indicated. Assessment: Vital Signs/I&O: Vital Signs Date Time Temp Pulse Resp B/P (MAP) Pulse Ox O2 Delivery O2 Flow Rate FiO2 09/26/20 06:15 98.2 74 18 117/62 (80) 97 09/23/20 15:50 Room Air I & O 09/25/20 09/25/20 09/26/20 15:00 23:00 07:00 Intake Total 600 ml 360 ml Balance 600 ml 360 ml Labs: Laboratory Tests Test 09/26/20 03:35 Urine Collection Type Unknown Urine Color Yellow Urine Clarity Clear Urine pH 7.5 Urine Specific [place] 1.015 Urine Protein Neg (NEG-TRACE) Urine Glucose (UA) Neg mg/dL (NEG) Urine Ketones (Stick) Neg mg/dL (NEG) Urine Blood Neg (NEG) Urine Nitrite Neg (NEG) Urine Bilirubin Neg (NEG) Urine Urobilinogen Dipstick >=8.0 mg/dL (0.2 mg/dL) Urine Leukocyte Esterase Neg (NEG) Urine RBC 0 /HPF (0-2) Urine WBC Occ /HPF (0-4) Urine Squamous Epithelial Cells Occ /LPF Urine Bacteria 0 /HPF (0-FEW) Current Medications: Meds: Laboratory Tests Test 09/26/20 03:35 Urine Collection Type Unknown Urine Color Yellow Urine Clarity Clear Urine pH 7.5 Urine Specific [place] 1.015 Urine Protein Neg Urine Glucose (UA) Neg mg/dL Urine Ketones (Stick) Neg mg/dL Urine Blood Neg Urine Nitrite Neg Urine Bilirubin Neg Urine Urobilinogen Dipstick >=8.0 mg/dL Urine Leukocyte Esterase Neg Urine RBC 0 /HPF Urine WBC Occ /HPF Urine Squamous Epithelial Cells Occ /LPF Urine Bacteria 0 /HPF Current Medications Medications (Trade) Dose Ordered Sig/Abundio Route PRN Reason Start Time Stop Time Status Last Admin Dose Admin Acetaminophen (Tylenol) 650 mg PRN Q6HRS PRN PO MILD PAIN / TEMP > 100.3'F 09/17/20 15:30 09/21/20 07:53 DC 09/20/20 20:31 Multi-Ingredient Ointment (Analgesic [place]) 1 will PRN QID PRN TP MUSCLE PAIN 09/17/20 15:30 Al Hydroxide/Mg Hydroxide (Mylanta Plus Xs) 15 ml PRN AFTMEALHC PRN PO DYSPEPSIA 09/17/20 15:30 Magnesium Hydroxide (Milk Of Magnesia) 2,400 mg PRN QHS PRN PO 1st choice CONSTIPATION 09/17/20 15:30 09/22/20 22:26 Acetaminophen (Tylenol) 650 mg BID PO 09/17/20 21:00 09/25/20 20:48 Acetaminophen (Tylenol) 650 mg PRN Q6HRS PRN PO MILD PAIN 1-3/ TEMP 09/17/20 16:15 Aspirin (Aspirin Chewable) 81 mg DAILY PO 09/18/20 09:00 09/25/20 08:10 Atorvastatin Calcium (Lipitor) 10 mg QHS PO 09/17/20 21:00 09/25/20 20:47 Bisacodyl (Dulcolax Supp) 10 mg PRN DAILY PRN RC 2nd choice CONSTIPATION 09/17/20 16:15 Diclofenac Sodium (Voltaren) 1 will PRN Q8HRS PRN TP MUSCLE PAIN 09/17/20 16:15 Divalproex Sodium (Depakote Er) 750 mg QHS PO 09/17/20 21:00 09/23/20 18:19 DC 09/22/20 20:42 Lorazepam (Ativan) 0.5 mg PRN BID PRN PO 1ST CHOICE ANXIETY 09/17/20 16:15 09/25/20 18:36 Mirtazapine (Remeron) 15 mg QHS PO 09/17/20 21:00 09/25/20 20:47 Olanzapine (ZyPREXA ZYDIS) 2.5 mg PRN Q2HR PRN PO 2ND CHOICE ANXIETY / AGITATION 09/17/20 16:15 09/22/20 10:42 Oxycodone/ Acetaminophen (Percocet 7.5/ 325) 1 tab PRN Q8HRS PRN PO MOD-SEVERE PAIN 09/17/20 16:15 09/23/20 15:50 Artificial Tears (Artificial Tears) 1 drop PRN Q15MIN PRN OU DRY EYE 09/17/20 16:15 Prazosin HCl (Minipress) 3 mg QHS PO 09/17/20 21:00 09/25/20 20:47 Quetiapine Fumarate (SEROquel) 37.5 mg 0900,1300,1700 PO 09/17/20 17:00 09/22/20 18:34 DC 09/22/20 16:14 Quetiapine Fumarate (SEROquel) 50 mg PRN DAILY PRN PO 3RD CHOICE ANXIETY / AGITATION 09/17/20 16:15 Quetiapine Fumarate (SEROquel) 100 mg QHS PO 09/17/20 21:00 09/22/20 18:34 DC 09/21/20 20:53 Sertraline HCl (Zoloft) 100 mg DAILY@1700 PO 09/17/20 17:00 09/25/20 17:23 Trazodone HCl (Desyrel) 50 mg PRN QHS PRN PO INSOMNIA, MAY REPEAT X1 09/17/20 16:15 09/22/20 22:28 Loperamide HCl (Imodium) 2 mg PRN Q15MIN PRN PO DIARRHEA 09/17/20 16:30 Multivitamins/ Calcium (Thera-M Plus) 1 tab DAILY PO 09/18/20 09:00 09/25/20 08:10 Pantoprazole Sodium (Protonix) 40 mg DAILYAC PO 09/18/20 07:30 09/25/20 08:11 Potassium Chloride (Klor-Con) 10 meq QODAY PO 09/19/20 09:00 09/23/20 11:34 DC 09/21/20 08:08 Quetiapine Fumarate (SEROquel) 75 mg QHS PO 09/22/20 21:00 09/25/20 20:47 Quetiapine Fumarate (SEROquel) 50 mg 0900,1700 PO 09/23/20 09:00 09/25/20 17:23 Quetiapine Fumarate (SEROquel) 37.5 mg 1300 PO 09/23/20 13:00 09/25/20 12:20 Potassium Chloride (Klor-Con) 20 meq 1300 PO 09/23/20 13:00 09/23/20 19:08 DC 09/23/20 12:03 Furosemide (Lasix) 80 mg 1300 PO 09/23/20 13:00 09/23/20 19:08 DC 09/23/20 12:03 Furosemide (Lasix) 80 mg DAILY PO 09/24/20 09:00 09/25/20 08:11 Potassium Chloride (Klor-Con) 20 meq DAILY PO 09/24/20 09:00 09/25/20 08:11 Carbamazepine (TEGretol) 100 mg DAILY@0900,1700 PO 09/25/20 20:15 09/25/20 20:15 Current Medications Medications (Trade) Dose Ordered Sig/Abundio Route PRN Reason Start Time Stop Time Status Last Admin Dose Admin Carbamazepine (TEGretol) 100 mg DAILY@0900,1700 PO 09/25/20 20:15 09/25/20 20:15 I have reviewed the current psychotropics carefully including drug interactions. Risk benefit ratio favors no change other than as noted in my dictated progress note. Diagnosis: Problems: (1) Impulse control disorder, unspecified (2) PTSD (post-traumatic stress disorder) (3) Anxiety disorder, unspecified (4) Dementia, vascular, with depression (5) Dementia, vascular, with delusions (6) Dementia in Alzheimer's disease with depression (7) Dementia in Alzheimer's disease with delusions (8) Dementia of the Alzheimer's type with early onset with behavioral disturbance (9) Major neurocognitive disorder DUANE NINO MD Sep 26, 2020 06:21
--- NOTE | 2020-09-26 06:34 | PDOC ---
Exam Note: Raman Note: This note is a late entry for 09/25/2020overs elements not covered in my initial note. Subjective: The patient was seen face to face in the evening of 09/25/2020 with Lydia MONTEMAYOR, discussed and reviewed the chart. The patient slept 6-1/4 hours previous night. He has been quite confused, aggressive. He was shaking his fist at a female nursing staff earlier today, making profane statements to female nursing staff Ill shove the broom up your a__ girl. We will check UA to make sure he does not have UTI to account for his severe irritability. His AST is improved from 177 to 57 and ALT from 584 to 314 since we stopped the Depakote. Review of Systems: No CV, , pulmonary, eye system symptoms on review. Reliability poor. Mental Status Exam: The patient is oriented to himself. Insight and judgment, recent and remote memory, attention and concentration is poor consistent with his diagnoses. Laboratory Data: Reviewed. Impression: Major neurocognitive disorder Alzheimer vascular with delusion, depression, and behavioral disturbance. Anxiety disorder unspecified. Impulse control disorder unspecified. PTSD. Plan: Continue rest psychotropics unchanged. Keep the patient off the Depa kote. We will start Tegretol 100 mg twice a day as a mood stabilizer. Check CBC, CMP, Tegretol level in 3 days. We will also check ammonia level. Assessment: Vital Signs/I&O: Vital Signs Date Time Temp Pulse Resp B/P (MAP) Pulse Ox O2 Delivery O2 Flow Rate FiO2 09/26/20 06:15 98.2 74 18 117/62 (80) 97 09/23/20 15:50 Room Air I & O 09/25/20 09/25/20 09/26/20 15:00 23:00 07:00 Intake Total 600 ml 360 ml Balance 600 ml 360 ml Labs: Laboratory Tests Test 09/26/20 03:35 Urine Collection Type Unknown Urine Color Yellow Urine Clarity Clear Urine pH 7.5 Urine Specific [place] 1.015 Urine Protein Neg (NEG-TRACE) Urine Glucose (UA) Neg mg/dL (NEG) Urine Ketones (Stick) Neg mg/dL (NEG) Urine Blood Neg (NEG) Urine Nitrite Neg (NEG) Urine Bilirubin Neg (NEG) Urine Urobilinogen Dipstick >=8.0 mg/dL (0.2 mg/dL) Urine Leukocyte Esterase Neg (NEG) Urine RBC 0 /HPF (0-2) Urine WBC Occ /HPF (0-4) Urine Squamous Epithelial Cells Occ /LPF Urine Bacteria 0 /HPF (0-FEW) Current Medications: Meds: Laboratory Tests Test 09/26/20 03:35 Urine Collection Type Unknown Urine Color Yellow Urine Clarity Clear Urine pH 7.5 Urine Specific [place] 1.015 Urine Protein Neg Urine Glucose (UA) Neg mg/dL Urine Ketones (Stick) Neg mg/dL Urine Blood Neg Urine Nitrite Neg Urine Bilirubin Neg Urine Urobilinogen Dipstick >=8.0 mg/dL Urine Leukocyte Esterase Neg Urine RBC 0 /HPF Urine WBC Occ /HPF Urine Squamous Epithelial Cells Occ /LPF Urine Bacteria 0 /HPF Current Medications Medications (Trade) Dose Ordered Sig/Abundio Route PRN Reason Start Time Stop Time Status Last Admin Dose Admin Acetaminophen (Tylenol) 650 mg PRN Q6HRS PRN PO MILD PAIN / TEMP > 100.3'F 09/17/20 15:30 09/21/20 07:53 DC 09/20/20 20:31 Multi-Ingredient Ointment (Analgesic [place]) 1 will PRN QID PRN TP MUSCLE PAIN 09/17/20 15:30 Al Hydroxide/Mg Hydroxide (Mylanta Plus Xs) 15 ml PRN AFTMEALHC PRN PO DYSPEPSIA 09/17/20 15:30 Magnesium Hydroxide (Milk Of Magnesia) 2,400 mg PRN QHS PRN PO 1st choice CONSTIPATION 09/17/20 15:30 09/22/20 22:26 Acetaminophen (Tylenol) 650 mg BID PO 09/17/20 21:00 09/25/20 20:48 Acetaminophen (Tylenol) 650 mg PRN Q6HRS PRN PO MILD PAIN 1-3/ TEMP 09/17/20 16:15 Aspirin (Aspirin Chewable) 81 mg DAILY PO 09/18/20 09:00 09/25/20 08:10 Atorvastatin Calcium (Lipitor) 10 mg QHS PO 09/17/20 21:00 09/25/20 20:47 Bisacodyl (Dulcolax Supp) 10 mg PRN DAILY PRN RC 2nd choice CONSTIPATION 09/17/20 16:15 Diclofenac Sodium (Voltaren) 1 will PRN Q8HRS PRN TP MUSCLE PAIN 09/17/20 16:15 Divalproex Sodium (Depakote Er) 750 mg QHS PO 09/17/20 21:00 09/23/20 18:19 DC 09/22/20 20:42 Lorazepam (Ativan) 0.5 mg PRN BID PRN PO 1ST CHOICE ANXIETY 09/17/20 16:15 09/25/20 18:36 Mirtazapine (Remeron) 15 mg QHS PO 09/17/20 21:00 09/25/20 20:47 Olanzapine (ZyPREXA ZYDIS) 2.5 mg PRN Q2HR PRN PO 2ND CHOICE ANXIETY / AGITATION 09/17/20 16:15 09/22/20 10:42 Oxycodone/ Acetaminophen (Percocet 7.5/ 325) 1 tab PRN Q8HRS PRN PO MOD-SEVERE PAIN 09/17/20 16:15 09/23/20 15:50 Artificial Tears (Artificial Tears) 1 drop PRN Q15MIN PRN OU DRY EYE 09/17/20 16:15 Prazosin HCl (Minipress) 3 mg QHS PO 09/17/20 21:00 09/25/20 20:47 Quetiapine Fumarate (SEROquel) 37.5 mg 0900,1300,1700 PO 09/17/20 17:00 09/22/20 18:34 DC 09/22/20 16:14 Quetiapine Fumarate (SEROquel) 50 mg PRN DAILY PRN PO 3RD CHOICE ANXIETY / AGITATION 09/17/20 16:15 Quetiapine Fumarate (SEROquel) 100 mg QHS PO 09/17/20 21:00 09/22/20 18:34 DC 09/21/20 20:53 Sertraline HCl (Zoloft) 100 mg DAILY@1700 PO 09/17/20 17:00 09/25/20 17:23 Trazodone HCl (Desyrel) 50 mg PRN QHS PRN PO INSOMNIA, MAY REPEAT X1 09/17/20 16:15 09/22/20 22:28 Loperamide HCl (Imodium) 2 mg PRN Q15MIN PRN PO DIARRHEA 09/17/20 16:30 Multivitamins/ Calcium (Thera-M Plus) 1 tab DAILY PO 09/18/20 09:00 09/25/20 08:10 Pantoprazole Sodium (Protonix) 40 mg DAILYAC PO 09/18/20 07:30 09/25/20 08:11 Potassium Chloride (Klor-Con) 10 meq QODAY PO 09/19/20 09:00 09/23/20 11:34 DC 09/21/20 08:08 Quetiapine Fumarate (SEROquel) 75 mg QHS PO 09/22/20 21:00 09/25/20 20:47 Quetiapine Fumarate (SEROquel) 50 mg 0900,1700 PO 09/23/20 09:00 09/25/20 17:23 Quetiapine Fumarate (SEROquel) 37.5 mg 1300 PO 09/23/20 13:00 09/25/20 12:20 Potassium Chloride (Klor-Con) 20 meq 1300 PO 09/23/20 13:00 09/23/20 19:08 DC 09/23/20 12:03 Furosemide (Lasix) 80 mg 1300 PO 09/23/20 13:00 09/23/20 19:08 DC 09/23/20 12:03 Furosemide (Lasix) 80 mg DAILY PO 09/24/20 09:00 09/25/20 08:11 Potassium Chloride (Klor-Con) 20 meq DAILY PO 09/24/20 09:00 09/25/20 08:11 Carbamazepine (TEGretol) 100 mg DAILY@0900,1700 PO 09/25/20 20:15 09/25/20 20:15 Current Medications Medications (Trade) Dose Ordered Sig/Abundio Route PRN Reason Start Time Stop Time Status Last Admin Dose Admin Carbamazepine (TEGretol) 100 mg DAILY@0900,1700 PO 09/25/20 20:15 09/25/20 20:15 I have reviewed the current psychotropics carefully including drug interactions. Risk benefit ratio favors no change other than as noted in my dictated progress note. Diagnosis: Problems: (1) Impulse control disorder, unspecified (2) PTSD (post-traumatic stress disorder) (3) Anxiety disorder, unspecified (4) Dementia, vascular, with depression (5) Dementia, vascular, with delusions (6) Dementia in Alzheimer's disease with depression (7) Dementia in Alzheimer's disease with delusions (8) Dementia of the Alzheimer's type with early onset with behavioral disturbance (9) Major neurocognitive disorder DUANE NINO MD Sep 26, 2020 06:33
[2020-09-26 06:38] LABS: ALBUMIN 2.4 g/dL (3.4-5.0); ALBUMIN/GLOBULIN RATIO 0.8 (1.0-1.7); CALCIUM 7.6 mg/dL (8.5-10.1); GFR 72.5; POTASSIUM 3.6 mmol/L (3.5-5.1); TOTAL BILIRUBIN 0.7 mg/dL (0.2-1.0); TOTAL PROTEIN 5.3 g/dL (6.4-8.2)
[2020-09-26] MEDS: FUROSEMIDE 80 MG TABLET PO SCH (08:43)
[2020-09-26] MEDS: QUEtiapine 25 MG TABLET. PO SCH ×4 (08:43→20:33)
[2020-09-26] MEDS: MULTIVITAMIN with MINERAL TABLET. PO SCH (08:43)
[2020-09-26] MEDS: POTASSIUM CHLORIDE 20 MEQ TABLET.ER. PO SCH (08:44)
[2020-09-26] MEDS: carBAMazepine 100 MG TAB.CHEW PO SCH ×2 (08:44→17:17)
[2020-09-26] MEDS: ACETAMINOPHEN 325 MG TABLET PO SCH ×2 (08:44→20:33)
[2020-09-26] MEDS: PANTOPRAZOLE 40 MG TABLET. PO SCH (08:44)
[2020-09-26] MEDS: ASPIRIN CHEWABLE 81 MG TABLET. PO SCH (08:44)
--- NOTE | 2020-09-26 11:35 | NUR ---
After review with Dr. Davis, Eric's d/c has been postponed until early next week. Eirc was started on Tegretol on 09/25/20 and labs will be completed in three days. SW notified Heidy (/POA) and Caryl (SW at [facility]) of d/c being postponed. Heidy will be involved in team meeting on 09/27/20.
[2020-09-26 15:42] VITALS: BP 122/74
[2020-09-26] MEDS: SERTRALINE 100 MG TABLET. PO SCH (17:17)
[2020-09-26] MEDS: MIRTAZAPINE 15 MG TABLET PO SCH (20:32)
[2020-09-26] MEDS: ATORVASTATIN CALCIUM 10 MG TABLET. PO SCH (20:33)
[2020-09-26] MEDS: traZODone 50 MG TABLET. PO PRN (20:33)
[2020-09-26] MEDS: PRAZOSIN 1 MG CAPSULE. PO SCH (20:34)
--- NOTE | 2020-09-26 22:02 | PDOC ---
Exam Note: Raman Note: Please also refer to the separate dictated note~for this date of service dictated separately.~Patient seen individually. Discussed the patient with Nursing staff reviewed the chart.~Reviewed interim history and current functioning. Reviewed vital signs,~Labs/ Radiology~and current medications noted below. Continue current treatment with the changes noted in the dictated addendum note Assessment: Vital Signs/I&O: Vital Signs Date Time Temp Pulse Resp B/P (MAP) Pulse Ox O2 Delivery O2 Flow Rate FiO2 09/26/20 20:34 74 122/74 09/26/20 15:42 97.5 16 99 09/23/20 15:50 Room Air I & O 09/25/20 09/25/20 09/26/20 15:00 23:00 07:00 Intake Total 600 ml 360 ml Balance 600 ml 360 ml Labs: Laboratory Tests Test 09/26/20 03:35 09/26/20 06:07 Urine Collection Type Unknown Urine Color Yellow Urine Clarity Clear Urine pH 7.5 Urine Specific [place] 1.015 Urine Protein Neg (NEG-TRACE) Urine Glucose (UA) Neg mg/dL (NEG) Urine Ketones (Stick) Neg mg/dL (NEG) Urine Blood Neg (NEG) Urine Nitrite Neg (NEG) Urine Bilirubin Neg (NEG) Urine Urobilinogen Dipstick >=8.0 mg/dL (0.2 mg/dL) Urine Leukocyte Esterase Neg (NEG) Urine RBC 0 /HPF (0-2) Urine WBC Occ /HPF (0-4) Urine Squamous Epithelial Cells Occ /LPF Urine Bacteria 0 /HPF (0-FEW) Sodium Level 144 mmol/L (136-145) Potassium Level 3.6 mmol/L (3.5-5.1) Chloride Level 108 mmol/L (98-107) H Carbon Dioxide Level 34 mmol/L (21-32) H Anion Gap 2 (6-14) L Blood Urea Nitrogen 36 mg/dL (8-26) H Creatinine 1.0 mg/dL (0.7-1.3) Estimated GFR (Cockcroft-Gault) 72.5 BUN/Creatinine Ratio 36 (6-20) H Glucose Level 101 mg/dL (70-99) H Calcium Level 7.6 mg/dL (8.5-10.1) L Total Bilirubin 0.7 mg/dL (0.2-1.0) Aspartate Amino Transferase (AST) 35 U/L (15-37) Alanine Aminotransferase (ALT) 209 U/L (16-63) H Alkaline Phosphatase 66 U/L (46-116) Total Protein 5.3 g/dL (6.4-8.2) L Albumin 2.4 g/dL (3.4-5.0) L Albumin/Globulin Ratio 0.8 (1.0-1.7) L Current Medications: Meds: Laboratory Tests Test 09/26/20 03:35 09/26/20 06:07 Urine Collection Type Unknown Urine Color Yellow Urine Clarity Clear Urine pH 7.5 Urine Specific [place] 1.015 Urine Protein Neg Urine Glucose (UA) Neg mg/dL Urine Ketones (Stick) Neg mg/dL Urine Blood Neg Urine Nitrite Neg Urine Bilirubin Neg Urine Urobilinogen Dipstick >=8.0 mg/dL Urine Leukocyte Esterase Neg Urine RBC 0 /HPF Urine WBC Occ /HPF Urine Squamous Epithelial Cells Occ /LPF Urine Bacteria 0 /HPF Sodium Level 144 mmol/L Potassium Level 3.6 mmol/L Chloride Level 108 mmol/L Carbon Dioxide Level 34 mmol/L Anion Gap 2 Blood Urea Nitrogen 36 mg/dL Creatinine 1.0 mg/dL Estimated GFR (Cockcroft-Gault) 72.5 BUN/Creatinine Ratio 36 Glucose Level 101 mg/dL Calcium Level 7.6 mg/dL Total Bilirubin 0.7 mg/dL Aspartate Amino Transf (AST/SGOT) 35 U/L Alanine Aminotransferase (ALT/SGPT) 209 U/L Alkaline Phosphatase 66 U/L Total Protein 5.3 g/dL Albumin 2.4 g/dL Albumin/Globulin Ratio 0.8 Current Medications Medications (Trade) Dose Ordered Sig/Abundio Route PRN Reason Start Time Stop Time Status Last Admin Dose Admin Acetaminophen (Tylenol) 650 mg PRN Q6HRS PRN PO MILD PAIN / TEMP > 100.3'F 09/17/20 15:30 09/21/20 07:53 DC 09/20/20 20:31 Multi-Ingredient Ointment (Analgesic [place]) 1 will PRN QID PRN TP MUSCLE PAIN 09/17/20 15:30 Al Hydroxide/Mg Hydroxide (Mylanta Plus Xs) 15 ml PRN AFTMEALHC PRN PO DYSPEPSIA 09/17/20 15:30 Magnesium Hydroxide (Milk Of Magnesia) 2,400 mg PRN QHS PRN PO 1st choice CONSTIPATION 09/17/20 15:30 09/22/20 22:26 Acetaminophen (Tylenol) 650 mg BID PO 09/17/20 21:00 09/26/20 20:33 Acetaminophen (Tylenol) 650 mg PRN Q6HRS PRN PO MILD PAIN 1-3/ TEMP 09/17/20 16:15 Aspirin (Aspirin Chewable) 81 mg DAILY PO 09/18/20 09:00 09/26/20 08:44 Atorvastatin Calcium (Lipitor) 10 mg QHS PO 09/17/20 21:00 09/26/20 20:33 Bisacodyl (Dulcolax Supp) 10 mg PRN DAILY PRN RC 2nd choice CONSTIPATION 09/17/20 16:15 Diclofenac Sodium (Voltaren) 1 will PRN Q8HRS PRN TP MUSCLE PAIN 09/17/20 16:15 Divalproex Sodium (Depakote Er) 750 mg QHS PO 09/17/20 21:00 09/23/20 18:19 DC 09/22/20 20:42 Lorazepam (Ativan) 0.5 mg PRN BID PRN PO 1ST CHOICE ANXIETY 09/17/20 16:15 09/25/20 18:36 Mirtazapine (Remeron) 15 mg QHS PO 09/17/20 21:00 09/26/20 20:32 Olanzapine (ZyPREXA ZYDIS) 2.5 mg PRN Q2HR PRN PO 2ND CHOICE ANXIETY / AGITATION 09/17/20 16:15 09/22/20 10:42 Oxycodone/ Acetaminophen (Percocet 7.5/ 325) 1 tab PRN Q8HRS PRN PO MOD-SEVERE PAIN 09/17/20 16:15 09/23/20 15:50 Artificial Tears (Artificial Tears) 1 drop PRN Q15MIN PRN OU DRY EYE 09/17/20 16:15 Prazosin HCl (Minipress) 3 mg QHS PO 09/17/20 21:00 09/26/20 20:34 Quetiapine Fumarate (SEROquel) 37.5 mg 0900,1300,1700 PO 09/17/20 17:00 09/22/20 18:34 DC 09/22/20 16:14 Quetiapine Fumarate (SEROquel) 50 mg PRN DAILY PRN PO 3RD CHOICE ANXIETY / AGITATION 09/17/20 16:15 Quetiapine Fumarate (SEROquel) 100 mg QHS PO 09/17/20 21:00 09/22/20 18:34 DC 09/21/20 20:53 Sertraline HCl (Zoloft) 100 mg DAILY@1700 PO 09/17/20 17:00 09/26/20 17:17 Trazodone HCl (Desyrel) 50 mg PRN QHS PRN PO INSOMNIA, MAY REPEAT X1 09/17/20 16:15 09/26/20 20:33 Loperamide HCl (Imodium) 2 mg PRN Q15MIN PRN PO DIARRHEA 09/17/20 16:30 Multivitamins/ Calcium (Thera-M Plus) 1 tab DAILY PO 09/18/20 09:00 09/26/20 08:43 Pantoprazole Sodium (Protonix) 40 mg DAILYAC PO 09/18/20 07:30 09/26/20 08:44 Potassium Chloride (Klor-Con) 10 meq QODAY PO 09/19/20 09:00 09/23/20 11:34 DC 09/21/20 08:08 Quetiapine Fumarate (SEROquel) 75 mg QHS PO 09/22/20 21:00 09/26/20 20:33 Quetiapine Fumarate (SEROquel) 50 mg 0900,1700 PO 09/23/20 09:00 09/26/20 17:17 Quetiapine Fumarate (SEROquel) 37.5 mg 1300 PO 09/23/20 13:00 09/26/20 12:18 Potassium Chloride (Klor-Con) 20 meq 1300 PO 09/23/20 13:00 09/23/20 19:08 DC 09/23/20 12:03 Furosemide (Lasix) 80 mg 1300 PO 09/23/20 13:00 09/23/20 19:08 DC 09/23/20 12:03 Furosemide (Lasix) 80 mg DAILY PO 09/24/20 09:00 09/26/20 08:43 Potassium Chloride (Klor-Con) 20 meq DAILY PO 09/24/20 09:00 09/26/20 08:44 Carbamazepine (TEGretol) 100 mg DAILY@0900,1700 PO 09/25/20 20:15 09/26/20 17:17 I have reviewed the current psychotropics carefully including drug interactions. Risk benefit ratio favors no change other than as noted in my dictated progress note. Diagnosis: Problems: (1) Impulse control disorder, unspecified (2) PTSD (post-traumatic stress disorder) (3) Anxiety disorder, unspecified (4) Dementia, vascular, with depression (5) Dementia, vascular, with delusions (6) Dementia in Alzheimer's disease with depression (7) Dementia in Alzheimer's disease with delusions (8) Dementia of the Alzheimer's type with early onset with behavioral disturbance (9) Major neurocognitive disorder DUANE NINO MD Sep 26, 2020 22:02
--- NOTE | 2020-09-27 00:52 | NUR ---
Nursing Note Pt confused, can't follow directions. Compliant with meds and assessment trazodone given for insomnia. Had to be escorted to his room by 2 staff was attempting to sit in the nursing station. Redirected well after he was taken out of the station. No other behaviors.
[2020-09-27 06:39] VITALS: BP 156/90
[2020-09-27] MEDS: ASPIRIN CHEWABLE 81 MG TABLET. PO SCH (08:54)
[2020-09-27] MEDS: QUEtiapine 25 MG TABLET. PO SCH ×4 (08:54→20:52)
[2020-09-27] MEDS: FUROSEMIDE 80 MG TABLET PO SCH (08:54)
[2020-09-27] MEDS: MULTIVITAMIN with MINERAL TABLET. PO SCH (08:54)
[2020-09-27] MEDS: ACETAMINOPHEN 325 MG TABLET PO SCH ×2 (08:54→20:53)
[2020-09-27] MEDS: PANTOPRAZOLE 40 MG TABLET. PO SCH (08:55)
[2020-09-27] MEDS: POTASSIUM CHLORIDE 20 MEQ TABLET.ER. PO SCH (08:55)
[2020-09-27] MEDS: carBAMazepine 100 MG TAB.CHEW PO SCH ×2 (08:55→17:40)
--- NOTE | 2020-09-27 12:27 | NUR ---
WEEKLY ACTIVITY THERAPY NOTE Date of Admission: 09/17/20 Date of AT Assessment: 09/20 Precipitating behaviors that initiated intake and admission: Pt continuing his stay for multiple behaviors from the skilled unit stay. Pt is intermittently combative and confused. Goal aimed: increase stimulation Initial Goal:Pt. will participate in at lease five Activity Therapy groups or individual sessions before discharge Weekly progress towards goal: on track(09/24-music and patio and leisure would you rather, 09/25 Laz:practice relaxation, 09/26-dance and social hour, 09/26-songs and states) Group participation level: 2 min, 1 mod, 1 full Weekly highlights: sang and tapped his hand on his knee and yelled "rose haw" during patio and music time Thursday, said that he enjoys reading to relax during Thursday group, danced and sang and yelled "rose haw" during Thursday group Behaviors observed: looking for granddaughters, mistaking staff for family members, pleasant, calm, and social Plan: no change to goal Beneficial adaptations: music, dancing, prompting
--- NOTE | 2020-09-27 12:47 | TX PLAN ---
Interdisciplinary Tx Plan Admission Information Sep 17, 2020 at 13:40 Legal Status (on Admission): Voluntary, DPOA DPOA/Guardian Name: Heidy Independence- Contact Other Contact Name: Caryl Other Contact Verified Code Status: DNR Allergies: Coded Allergies: No Known Drug Allergies (Unverified , 08/28/20) Estimated Length of Stay: 14 Diagnoses Primary Diagnosis: Major neurocognitive disorder, vascular alzheimers with delusions BD; Anxiety d/o unspecified; Impulse control d/o Reasons for Admission: Aggressive, Agitated, Combative, Suspicious/paranoid, Poor impulse control Problem in Patient's Words: Per POA, as noted above. Problems Active Problems: Aggressive Agitated Combative Wandering Confused Paranoid Inactive Problems: Medication compliant Averaging 80% of meal intakes Averaging 7 hours of sleep Pt Strengths/Limitations Ability for [place]: Poor Cognitive Functioning/Ability: Poor Communication Skills/Ability: Fair Financial Resources: Fair Insight/Judgement: Poor Intellectual Ability: Fair Physical Health: Fair Social Skills: Fair Stability in Family: Good Verbal Skills: Fair Discharge Criteria Discharge Criteria: Adequate arrangements @DC, Improved behavior, Improved mood/thought Preliminary Discharge Plan Preliminary DC Plan: Memory Care Other Arrangements: [facility] Special Precautions Special Precautions: Agitation/Assault Fall Risk: High Initial D/C Plan Return to [facility] Identified Discharge Needs: Out patient psychiatry if available, restorative therapy program, activites to occupy time, allow adequate time for Eric to process and respond. Currently Utilized Resources Currently Utilized Resources/P: PCP 24 hour memory care Referrals Community Resources: [facility] Identified Problems/Hx/Goals Objectives/Short-Term Goals Short Term Goals: Control abnormal behavior, Dec. Aggression, Dec. Outbursts, Medication Stabilization, Prevent Deterioration Short Term Goals in Patient's: Per POA, for Eric to "be at peace, be able to sleep at night, and have increased intake." Interventions/Frequency Staff Interventions/Frequency&: Nursing to provide routine safety checks, medication administration, and adl support. Psychiatry to see three times weekly. SW to see twice weekly. SW and recreational groups as Eric allows. PT/OT eval and treat as indicated. 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 Social: Eric has enjoyed fishing and hunting. Education: Eric graduated high school and attended some college. Community Follow-up PCP [facility] Community Provider/Family Inpu: Heidy (/POA) and Shauna (daughter) participated in team meeting this date. Tentative d/c date mid next week. 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 D/C was postponed due to periods of agitation/aggression towards staff and initiation of Tegretol with labs being completed. Eric has had periods of disrobing and has recently been wearing a onesie. Staff are going to complete a trial of street clothes to see how Eric does. Eric was involved in four group activities with good engagement in the [place] group. He has been social and pleasant during group times. Heidy () and Erna (daughter) were involved in team meeting via phone this date. Tentative d/c date is now 10/02/20. will send updated notes to Vi Lechuga on 09/28/20. MARYBEL MARQUEZ Sep 27, 2020 12:47
[2020-09-27 15:51] VITALS: BP 141/64
[2020-09-27] MEDS: SERTRALINE 100 MG TABLET. PO SCH (17:40)
--- NOTE | 2020-09-27 18:30 | NUR ---
Patient has generally been calm, compliant, and pleasantly confused throughout this shift. In the early afternoon patient was irritable, and then found wandering in [place] completely naked and covering himself with a t shirt. Patient escorted to room then cleaned and dressed, he had been incontinent of bowel. HIs mood was improved after being changed and cleaned. He has been cooperative with medications and assessment. Will continue to monitor and report to oncoming shift.
[2020-09-27] MEDS: PRAZOSIN 1 MG CAPSULE. PO SCH (20:52)
[2020-09-27] MEDS: ATORVASTATIN CALCIUM 10 MG TABLET. PO SCH (20:52)
[2020-09-27] MEDS: MIRTAZAPINE 15 MG TABLET PO SCH (20:52)
--- NOTE | 2020-09-27 21:58 | PDOC ---
Exam Note: Raman Note: Please also refer to the separate dictated note~for this date of service dictated separately.~Patient seen individually. Discussed the patient with Nursing staff reviewed the chart.~Reviewed interim history and current functioning. Reviewed vital signs,~Labs/ Radiology~and current medications noted below. Continue current treatment with the changes noted in the dictated addendum note Assessment: Vital Signs/I&O: Vital Signs Date Time Temp Pulse Resp B/P (MAP) Pulse Ox O2 Delivery O2 Flow Rate FiO2 09/27/20 20:52 78 141/64 09/27/20 15:51 97.8 20 94 09/23/20 15:50 Room Air I & O 09/26/20 09/26/20 09/27/20 15:00 23:00 07:00 Intake Total 480 ml 480 ml Balance 480 ml 480 ml Current Medications: Meds: Current Medications Medications (Trade) Dose Ordered Sig/Abundio Route PRN Reason Start Time Stop Time Status Last Admin Dose Admin Acetaminophen (Tylenol) 650 mg PRN Q6HRS PRN PO MILD PAIN / TEMP > 100.3'F 09/17/20 15:30 09/21/20 07:53 DC 09/20/20 20:31 Multi-Ingredient Ointment (Analgesic [place]) 1 will PRN QID PRN TP MUSCLE PAIN 09/17/20 15:30 Al Hydroxide/Mg Hydroxide (Mylanta Plus Xs) 15 ml PRN AFTMEALHC PRN PO DYSPEPSIA 09/17/20 15:30 Magnesium Hydroxide (Milk Of Magnesia) 2,400 mg PRN QHS PRN PO 1st choice CONSTIPATION 09/17/20 15:30 09/22/20 22:26 Acetaminophen (Tylenol) 650 mg BID PO 09/17/20 21:00 09/27/20 20:53 Acetaminophen (Tylenol) 650 mg PRN Q6HRS PRN PO MILD PAIN 1-3/ TEMP 09/17/20 16:15 Aspirin (Aspirin Chewable) 81 mg DAILY PO 09/18/20 09:00 09/27/20 08:54 Atorvastatin Calcium (Lipitor) 10 mg QHS PO 09/17/20 21:00 09/27/20 20:52 Bisacodyl (Dulcolax Supp) 10 mg PRN DAILY PRN RC 2nd choice CONSTIPATION 09/17/20 16:15 Diclofenac Sodium (Voltaren) 1 will PRN Q8HRS PRN TP MUSCLE PAIN 09/17/20 16:15 Divalproex Sodium (Depakote Er) 750 mg QHS PO 09/17/20 21:00 09/23/20 18:19 DC 09/22/20 20:42 Lorazepam (Ativan) 0.5 mg PRN BID PRN PO 1ST CHOICE ANXIETY 09/17/20 16:15 09/25/20 18:36 Mirtazapine (Remeron) 15 mg QHS PO 09/17/20 21:00 09/27/20 20:52 Olanzapine (ZyPREXA ZYDIS) 2.5 mg PRN Q2HR PRN PO 2ND CHOICE ANXIETY / AGITATION 09/17/20 16:15 09/22/20 10:42 Oxycodone/ Acetaminophen (Percocet 7.5/ 325) 1 tab PRN Q8HRS PRN PO MOD-SEVERE PAIN 09/17/20 16:15 09/23/20 15:50 Artificial Tears (Artificial Tears) 1 drop PRN Q15MIN PRN OU DRY EYE 09/17/20 16:15 Prazosin HCl (Minipress) 3 mg QHS PO 09/17/20 21:00 09/27/20 20:52 Quetiapine Fumarate (SEROquel) 37.5 mg 0900,1300,1700 PO 09/17/20 17:00 09/22/20 18:34 DC 09/22/20 16:14 Quetiapine Fumarate (SEROquel) 50 mg PRN DAILY PRN PO 3RD CHOICE ANXIETY / AGITATION 09/17/20 16:15 Quetiapine Fumarate (SEROquel) 100 mg QHS PO 09/17/20 21:00 09/22/20 18:34 DC 09/21/20 20:53 Sertraline HCl (Zoloft) 100 mg DAILY@1700 PO 09/17/20 17:00 09/27/20 17:40 Trazodone HCl (Desyrel) 50 mg PRN QHS PRN PO INSOMNIA, MAY REPEAT X1 09/17/20 16:15 09/26/20 20:33 Loperamide HCl (Imodium) 2 mg PRN Q15MIN PRN PO DIARRHEA 09/17/20 16:30 Multivitamins/ Calcium (Thera-M Plus) 1 tab DAILY PO 09/18/20 09:00 09/27/20 08:54 Pantoprazole Sodium (Protonix) 40 mg DAILYAC PO 09/18/20 07:30 09/27/20 08:55 Potassium Chloride (Klor-Con) 10 meq QODAY PO 09/19/20 09:00 09/23/20 11:34 DC 09/21/20 08:08 Quetiapine Fumarate (SEROquel) 75 mg QHS PO 09/22/20 21:00 09/27/20 20:52 Quetiapine Fumarate (SEROquel) 50 mg 0900,1700 PO 09/23/20 09:00 09/27/20 17:39 Quetiapine Fumarate (SEROquel) 37.5 mg 1300 PO 09/23/20 13:00 09/27/20 13:08 Potassium Chloride (Klor-Con) 20 meq 1300 PO 09/23/20 13:00 09/23/20 19:08 DC 09/23/20 12:03 Furosemide (Lasix) 80 mg 1300 PO 09/23/20 13:00 09/23/20 19:08 DC 09/23/20 12:03 Furosemide (Lasix) 80 mg DAILY PO 09/24/20 09:00 09/27/20 08:54 Potassium Chloride (Klor-Con) 20 meq DAILY PO 09/24/20 09:00 09/27/20 08:55 Carbamazepine (TEGretol) 100 mg DAILY@0900,1700 PO 09/25/20 20:15 09/27/20 17:40 I have reviewed the current psychotropics carefully including drug interactions. Risk benefit ratio favors no change other than as noted in my dictated progress note. Diagnosis: Problems: (1) Impulse control disorder, unspecified (2) PTSD (post-traumatic stress disorder) (3) Anxiety disorder, unspecified (4) Dementia, vascular, with depression (5) Dementia, vascular, with delusions (6) Dementia in Alzheimer's disease with depression (7) Dementia in Alzheimer's disease with delusions (8) Dementia of the Alzheimer's type with early onset with behavioral disturbance (9) Major neurocognitive disorder DUANE NINO MD Sep 27, 2020 21:58
--- NOTE | 2020-09-27 22:59 | NUR ---
Nursing Note Pt pleasant and cooperative, denies pain or complaints. Addresses the doctor pleasantly, offers him a seat and for me to cook them a meal. respectfully declined the meal. Pt takes meds in pudding willingly, no agitation.
[2020-09-28 06:18] VITALS: BP 126/66
--- NOTE | 2020-09-28 06:22 | PDOC ---
Exam Note: Raman Note: This note is a late entry for 09/26/2020overs elements not covered in my initial note. Subjective: The patient was seen face to face in the evening of 09/26/2020 with Lydia MONTEMAYOR, discussed and reviewed the chart. The patient slept 5-1/2 hours previous night. He has been dancing and contributes music in groups per nursing report. He remains confused, somewhat anxious at times. Liver enzymes are improving and he is tolerating the Tegretol. We will continue to adjust this till he stabilizes currently at 100 mg b.i.d. Review of Systems: No CV, , pulmonary, eye system symptoms on review. Reliability poor. Mental Status Exam: The patient is oriented to himself. Insight and judgment, recent and remote memory, attention and concentration is poor consistent with his diagnoses. Laboratory Data: Reviewed. Impression: Major neurocognitive disorder Alzheimer vascular with delusion, depression, and behavioral disturbance. Anxiety disorder unspecified. Impulse control disorder unspecified. PTSD. Plan: Continue rest psychotropics unchanged. We have started the Tegretol 100 mg twice a day. We will check CBC, CMP, Tegretol level. Adjust further to reach therapeutic level as clinically indicated. Assessment: Vital Signs/I&O: Vital Signs Date Time Temp Pulse Resp B/P (MAP) Pulse Ox O2 Delivery O2 Flow Rate FiO2 09/28/20 06:18 97.8 92 20 126/66 (86) 96 09/23/20 15:50 Room Air I & O 09/27/20 09/27/20 09/28/20 15:00 23:00 07:00 Intake Total 560 ml 480 ml Balance 560 ml 480 ml Current Medications: Meds: Current Medications Medications (Trade) Dose Ordered Sig/Abundio Route PRN Reason Start Time Stop Time Status Last Admin Dose Admin Acetaminophen (Tylenol) 650 mg PRN Q6HRS PRN PO MILD PAIN / TEMP > 100.3'F 09/17/20 15:30 09/21/20 07:53 DC 09/20/20 20:31 Multi-Ingredient Ointment (Analgesic [place]) 1 will PRN QID PRN TP MUSCLE PAIN 09/17/20 15:30 Al Hydroxide/Mg Hydroxide (Mylanta Plus Xs) 15 ml PRN AFTMEALHC PRN PO DYSPEPSIA 09/17/20 15:30 Magnesium Hydroxide (Milk Of Magnesia) 2,400 mg PRN QHS PRN PO 1st choice CONSTIPATION 09/17/20 15:30 09/22/20 22:26 Acetaminophen (Tylenol) 650 mg BID PO 09/17/20 21:00 09/27/20 20:53 Acetaminophen (Tylenol) 650 mg PRN Q6HRS PRN PO MILD PAIN 1-3/ TEMP 09/17/20 16:15 Aspirin (Aspirin Chewable) 81 mg DAILY PO 09/18/20 09:00 09/27/20 08:54 Atorvastatin Calcium (Lipitor) 10 mg QHS PO 09/17/20 21:00 09/27/20 20:52 Bisacodyl (Dulcolax Supp) 10 mg PRN DAILY PRN RC 2nd choice CONSTIPATION 09/17/20 16:15 Diclofenac Sodium (Voltaren) 1 will PRN Q8HRS PRN TP MUSCLE PAIN 09/17/20 16:15 Divalproex Sodium (Depakote Er) 750 mg QHS PO 09/17/20 21:00 09/23/20 18:19 DC 09/22/20 20:42 Lorazepam (Ativan) 0.5 mg PRN BID PRN PO 1ST CHOICE ANXIETY 09/17/20 16:15 09/25/20 18:36 Mirtazapine (Remeron) 15 mg QHS PO 09/17/20 21:00 09/27/20 20:52 Olanzapine (ZyPREXA ZYDIS) 2.5 mg PRN Q2HR PRN PO 2ND CHOICE ANXIETY / AGITATION 09/17/20 16:15 09/22/20 10:42 Oxycodone/ Acetaminophen (Percocet 7.5/ 325) 1 tab PRN Q8HRS PRN PO MOD-SEVERE PAIN 09/17/20 16:15 09/23/20 15:50 Artificial Tears (Artificial Tears) 1 drop PRN Q15MIN PRN OU DRY EYE 09/17/20 16:15 Prazosin HCl (Minipress) 3 mg QHS PO 09/17/20 21:00 09/27/20 20:52 Quetiapine Fumarate (SEROquel) 37.5 mg 0900,1300,1700 PO 09/17/20 17:00 09/22/20 18:34 DC 09/22/20 16:14 Quetiapine Fumarate (SEROquel) 50 mg PRN DAILY PRN PO 3RD CHOICE ANXIETY / AGITATION 09/17/20 16:15 Quetiapine Fumarate (SEROquel) 100 mg QHS PO 09/17/20 21:00 09/22/20 18:34 DC 09/21/20 20:53 Sertraline HCl (Zoloft) 100 mg DAILY@1700 PO 09/17/20 17:00 09/27/20 17:40 Trazodone HCl (Desyrel) 50 mg PRN QHS PRN PO INSOMNIA, MAY REPEAT X1 09/17/20 16:15 09/26/20 20:33 Loperamide HCl (Imodium) 2 mg PRN Q15MIN PRN PO DIARRHEA 09/17/20 16:30 Multivitamins/ Calcium (Thera-M Plus) 1 tab DAILY PO 09/18/20 09:00 09/27/20 08:54 Pantoprazole Sodium (Protonix) 40 mg DAILYAC PO 09/18/20 07:30 09/27/20 08:55 Potassium Chloride (Klor-Con) 10 meq QODAY PO 09/19/20 09:00 09/23/20 11:34 DC 09/21/20 08:08 Quetiapine Fumarate (SEROquel) 75 mg QHS PO 09/22/20 21:00 09/27/20 20:52 Quetiapine Fumarate (SEROquel) 50 mg 0900,1700 PO 09/23/20 09:00 09/27/20 17:39 Quetiapine Fumarate (SEROquel) 37.5 mg 1300 PO 09/23/20 13:00 09/27/20 13:08 Potassium Chloride (Klor-Con) 20 meq 1300 PO 09/23/20 13:00 09/23/20 19:08 DC 09/23/20 12:03 Furosemide (Lasix) 80 mg 1300 PO 09/23/20 13:00 09/23/20 19:08 DC 09/23/20 12:03 Furosemide (Lasix) 80 mg DAILY PO 09/24/20 09:00 09/27/20 08:54 Potassium Chloride (Klor-Con) 20 meq DAILY PO 09/24/20 09:00 09/27/20 08:55 Carbamazepine (TEGretol) 100 mg DAILY@0900,1700 PO 09/25/20 20:15 09/27/20 17:40 I have reviewed the current psychotropics carefully including drug interactions. Risk benefit ratio favors no change other than as noted in my dictated progress note. Diagnosis: Problems: (1) Impulse control disorder, unspecified (2) PTSD (post-traumatic stress disorder) (3) Anxiety disorder, unspecified (4) Dementia, vascular, with depression (5) Dementia, vascular, with delusions (6) Dementia in Alzheimer's disease with depression (7) Dementia in Alzheimer's disease with delusions (8) Dementia of the Alzheimer's type with early onset with behavioral disturbance (9) Major neurocognitive disorder DUANE NINO MD Sep 28, 2020 06:22
--- NOTE | 2020-09-28 06:34 | PDOC ---
Exam Note: Raman Note: This note is a late entry for 09/27/2020overs elements not covered in my initial note. Subjective: The patient was reviewed at treatment team meeting individually in the morning on 09/27/2020 with Viola Dozier, Chioma Coburn (social services coordinator), Maira, activity therapy and Scott MONTEMAYOR, discussed and reviewed the chart. The patient slept 7 hours previous night. Heidy the patients and Erna daughter attended the meeting. Overall the patient remains confused, not aggressive. Review of Systems: No CV, , pulmonary, eye system symptoms on review. Reliability poor. Mental Status Exam: The patient is oriented to himself. I met with him in his room. Insight and judgment, recent and remote memory, attention and concentration is poor consistent with his diagnoses. Laboratory Data: Reviewed. Impression: Major neurocognitive disorder Alzheimer vascular with delusion, depression, and behavioral disturbance. Anxiety disorder unspecified. Impulse control disorder unspecified. PTSD. Plan: Continue rest psychotropics unchanged. Assessment: Vital Signs/I&O: Vital Signs Date Time Temp Pulse Resp B/P (MAP) Pulse Ox O2 Delivery O2 Flow Rate FiO2 09/28/20 06:18 97.8 92 20 126/66 (86) 96 09/23/20 15:50 Room Air I & O 09/27/20 09/27/20 09/28/20 15:00 23:00 07:00 Intake Total 560 ml 480 ml Balance 560 ml 480 ml Current Medications: Meds: Current Medications Medications (Trade) Dose Ordered Sig/Abundio Route PRN Reason Start Time Stop Time Status Last Admin Dose Admin Acetaminophen (Tylenol) 650 mg PRN Q6HRS PRN PO MILD PAIN / TEMP > 100.3'F 09/17/20 15:30 09/21/20 07:53 DC 09/20/20 20:31 Multi-Ingredient Ointment (Analgesic [place]) 1 will PRN QID PRN TP MUSCLE PAIN 09/17/20 15:30 Al Hydroxide/Mg Hydroxide (Mylanta Plus Xs) 15 ml PRN AFTMEALHC PRN PO DYSPEPSIA 09/17/20 15:30 Magnesium Hydroxide (Milk Of Magnesia) 2,400 mg PRN QHS PRN PO 1st choice CONSTIPATION 09/17/20 15:30 09/22/20 22:26 Acetaminophen (Tylenol) 650 mg BID PO 09/17/20 21:00 09/27/20 20:53 Acetaminophen (Tylenol) 650 mg PRN Q6HRS PRN PO MILD PAIN 1-3/ TEMP 09/17/20 16:15 Aspirin (Aspirin Chewable) 81 mg DAILY PO 09/18/20 09:00 09/27/20 08:54 Atorvastatin Calcium (Lipitor) 10 mg QHS PO 09/17/20 21:00 09/27/20 20:52 Bisacodyl (Dulcolax Supp) 10 mg PRN DAILY PRN RC 2nd choice CONSTIPATION 09/17/20 16:15 Diclofenac Sodium (Voltaren) 1 will PRN Q8HRS PRN TP MUSCLE PAIN 09/17/20 16:15 Divalproex Sodium (Depakote Er) 750 mg QHS PO 09/17/20 21:00 09/23/20 18:19 DC 09/22/20 20:42 Lorazepam (Ativan) 0.5 mg PRN BID PRN PO 1ST CHOICE ANXIETY 09/17/20 16:15 09/25/20 18:36 Mirtazapine (Remeron) 15 mg QHS PO 09/17/20 21:00 09/27/20 20:52 Olanzapine (ZyPREXA ZYDIS) 2.5 mg PRN Q2HR PRN PO 2ND CHOICE ANXIETY / AGITATION 09/17/20 16:15 09/22/20 10:42 Oxycodone/ Acetaminophen (Percocet 7.5/ 325) 1 tab PRN Q8HRS PRN PO MOD-SEVERE PAIN 09/17/20 16:15 09/23/20 15:50 Artificial Tears (Artificial Tears) 1 drop PRN Q15MIN PRN OU DRY EYE 09/17/20 16:15 Prazosin HCl (Minipress) 3 mg QHS PO 09/17/20 21:00 09/27/20 20:52 Quetiapine Fumarate (SEROquel) 37.5 mg 0900,1300,1700 PO 09/17/20 17:00 09/22/20 18:34 DC 09/22/20 16:14 Quetiapine Fumarate (SEROquel) 50 mg PRN DAILY PRN PO 3RD CHOICE ANXIETY / AGITATION 09/17/20 16:15 Quetiapine Fumarate (SEROquel) 100 mg QHS PO 09/17/20 21:00 09/22/20 18:34 DC 09/21/20 20:53 Sertraline HCl (Zoloft) 100 mg DAILY@1700 PO 09/17/20 17:00 09/27/20 17:40 Trazodone HCl (Desyrel) 50 mg PRN QHS PRN PO INSOMNIA, MAY REPEAT X1 09/17/20 16:15 09/26/20 20:33 Loperamide HCl (Imodium) 2 mg PRN Q15MIN PRN PO DIARRHEA 09/17/20 16:30 Multivitamins/ Calcium (Thera-M Plus) 1 tab DAILY PO 09/18/20 09:00 09/27/20 08:54 Pantoprazole Sodium (Protonix) 40 mg DAILYAC PO 09/18/20 07:30 09/27/20 08:55 Potassium Chloride (Klor-Con) 10 meq QODAY PO 09/19/20 09:00 09/23/20 11:34 DC 09/21/20 08:08 Quetiapine Fumarate (SEROquel) 75 mg QHS PO 09/22/20 21:00 09/27/20 20:52 Quetiapine Fumarate (SEROquel) 50 mg 0900,1700 PO 09/23/20 09:00 09/27/20 17:39 Quetiapine Fumarate (SEROquel) 37.5 mg 1300 PO 09/23/20 13:00 09/27/20 13:08 Potassium Chloride (Klor-Con) 20 meq 1300 PO 09/23/20 13:00 09/23/20 19:08 DC 09/23/20 12:03 Furosemide (Lasix) 80 mg 1300 PO 09/23/20 13:00 09/23/20 19:08 DC 09/23/20 12:03 Furosemide (Lasix) 80 mg DAILY PO 09/24/20 09:00 09/27/20 08:54 Potassium Chloride (Klor-Con) 20 meq DAILY PO 09/24/20 09:00 09/27/20 08:55 Carbamazepine (TEGretol) 100 mg DAILY@0900,1700 PO 09/25/20 20:15 09/27/20 17:40 I have reviewed the current psychotropics carefully including drug interactions. Risk benefit ratio favors no change other than as noted in my dictated progress note. Diagnosis: Problems: (1) Impulse control disorder, unspecified (2) PTSD (post-traumatic stress disorder) (3) Anxiety disorder, unspecified (4) Dementia, vascular, with depression (5) Dementia, vascular, with delusions (6) Dementia in Alzheimer's disease with depression (7) Dementia in Alzheimer's disease with delusions (8) Dementia of the Alzheimer's type with early onset with behavioral disturbance (9) Major neurocognitive disorder DUANE NINO MD Sep 28, 2020 06:34
[2020-09-28 07:28] LABS: BASO % 1 % (0-3); EOS # 0.3 x10^3/uL (0.0-0.7); EOS % 4 % (0-3); HEMATOCRIT 31.6 % (39.0-53.0); HEMOGLOBIN 10.3 g/dL (13.0-17.5); LYMPH # 0.9 x10^3/uL (1.0-4.8); LYMPH % 15 % (24-48); MEAN CORPUSCULAR HEMOGLOBIN 29 pg (25-35); MEAN CORPUSCULAR HGB CONC 32 g/dL (31-37); MEAN CORPUSCULAR VOLUME 88 fL (79-100); MONO % 17 % (0-9); NEUT # 3.7 x10^3uL (1.8-7.7); NEUT % 63 % (31-73); PLATELET COUNT 224 x10^3/uL (140-400); RED BLOOD COUNT 3.58 x10^6/uL (4.30-5.70); RED CELL DISTRIBUTION WIDTH 15.8 % (11.5-14.5); WHITE BLOOD COUNT 5.9 x10^3/uL (4.0-11.0)
[2020-09-28 07:46] LABS: ALBUMIN 2.8 g/dL (3.4-5.0); ALBUMIN/GLOBULIN RATIO 0.8 (1.0-1.7); GFR 72.5; POTASSIUM 3.6 mmol/L (3.5-5.1); TOTAL BILIRUBIN 0.6 mg/dL (0.2-1.0); TOTAL PROTEIN 6.3 g/dL (6.4-8.2)
[2020-09-28] MEDS: FUROSEMIDE 80 MG TABLET PO SCH (08:23)
[2020-09-28] MEDS: PANTOPRAZOLE 40 MG TABLET. PO SCH (08:23)
[2020-09-28] MEDS: ACETAMINOPHEN 325 MG TABLET PO SCH ×2 (08:23→20:31)
[2020-09-28] MEDS: POTASSIUM CHLORIDE 20 MEQ TABLET.ER. PO SCH (08:24)
[2020-09-28] MEDS: ASPIRIN CHEWABLE 81 MG TABLET. PO SCH (08:24)
[2020-09-28] MEDS: MULTIVITAMIN with MINERAL TABLET. PO SCH (08:24)
[2020-09-28] MEDS: QUEtiapine 25 MG TABLET. PO SCH ×4 (08:24→20:31)
[2020-09-28] MEDS: carBAMazepine 100 MG TAB.CHEW PO SCH ×2 (08:25→17:26)
--- NOTE | 2020-09-28 10:00 | NUR ---
Faxed current notes, labs, and medication list to Vanessa at [facility] for review.
[2020-09-28 14:26] LABS: CARBAM 4.5 mcg/mL (4.0-12.0)
[2020-09-28 16:01] VITALS: BP 113/67
[2020-09-28] MEDS: SERTRALINE 100 MG TABLET. PO SCH (17:26)
--- NOTE | 2020-09-28 18:07 | NUR ---
Patient has generally been calm, compliant, and pleasantly confused throughout this shift. He was usually cooperative with medications crushed in drinks and assessment. Will continue to monitor and report to oncoming shift.
[2020-09-28] MEDS: traZODone 50 MG TABLET. PO PRN ×2 (20:30→22:34)
[2020-09-28] MEDS: MIRTAZAPINE 15 MG TABLET PO SCH (20:31)
[2020-09-28] MEDS: ATORVASTATIN CALCIUM 10 MG TABLET. PO SCH (20:31)
[2020-09-28] MEDS: PRAZOSIN 1 MG CAPSULE. PO SCH (20:31)
--- NOTE | 2020-09-28 22:09 | PDOC ---
Exam Note: Raman Note: Please also refer to the separate dictated note~for this date of service dictated separately.~Patient seen individually. Discussed the patient with Nursing staff reviewed the chart.~Reviewed interim history and current functioning. Reviewed vital signs,~Labs/ Radiology~and current medications noted below. Continue current treatment with the changes noted in the dictated addendum note Assessment: Vital Signs/I&O: Vital Signs Date Time Temp Pulse Resp B/P (MAP) Pulse Ox O2 Delivery O2 Flow Rate FiO2 09/28/20 20:31 77 113/67 09/28/20 16:01 97.6 16 99 Room Air I & O 09/27/20 09/27/20 09/28/20 15:00 23:00 07:00 Intake Total 560 ml 480 ml Balance 560 ml 480 ml Labs: Laboratory Tests Test 09/28/20 07:16 White Blood Count 5.9 x10^3/uL (4.0-11.0) Red Blood Count 3.58 x10^6/uL (4.30-5.70) L Hemoglobin 10.3 g/dL (13.0-17.5) L Hematocrit 31.6 % (39.0-53.0) L Mean Corpuscular Volume 88 fL (79-100) Mean Corpuscular Hemoglobin 29 pg (25-35) Mean Corpuscular Hemoglobin Concent 32 g/dL (31-37) Red Cell Distribution Width 15.8 % (11.5-14.5) H Platelet Count 224 x10^3/uL (140-400) Neutrophils (%) (Auto) 63 % (31-73) Lymphocytes (%) (Auto) 15 % (24-48) L Monocytes (%) (Auto) 17 % (0-9) H Eosinophils (%) (Auto) 4 % (0-3) H Basophils (%) (Auto) 1 % (0-3) Neutrophils # (Auto) 3.7 x10^3uL (1.8-7.7) Lymphocytes # (Auto) 0.9 x10^3/uL (1.0-4.8) L Monocytes # (Auto) 1.0 x10^3/uL (0.0-1.1) Eosinophils # (Auto) 0.3 x10^3/uL (0.0-0.7) Basophils # (Auto) 0.0 x10^3/uL (0.0-0.2) Sodium Level 146 mmol/L (136-145) H Potassium Level 3.6 mmol/L (3.5-5.1) Chloride Level 108 mmol/L (98-107) H Carbon Dioxide Level 33 mmol/L (21-32) H Anion Gap 5 (6-14) L Blood Urea Nitrogen 31 mg/dL (8-26) H Creatinine 1.0 mg/dL (0.7-1.3) Estimated GFR (Cockcroft-Gault) 72.5 BUN/Creatinine Ratio 31 (6-20) H Glucose Level 116 mg/dL (70-99) H Calcium Level 8.0 mg/dL (8.5-10.1) L Total Bilirubin 0.6 mg/dL (0.2-1.0) Aspartate Amino Transferase (AST) 26 U/L (15-37) Alanine Aminotransferase (ALT) 139 U/L (16-63) H Alkaline Phosphatase 77 U/L (46-116) Ammonia 10 mcmol/L (11-34) L Total Protein 6.3 g/dL (6.4-8.2) L Albumin 2.8 g/dL (3.4-5.0) L Albumin/Globulin Ratio 0.8 (1.0-1.7) L Carbamazepine (Tegretol) Level 4.5 mcg/mL (4.0-12.0) Carbamazepine Last Dose Date 09/27/20 Carbamazepine Last Dose Time 2100 Current Medications: Meds: Laboratory Tests Test 09/28/20 07:16 White Blood Count 5.9 x10^3/uL Red Blood Count 3.58 x10^6/uL Hemoglobin 10.3 g/dL Hematocrit 31.6 % Mean Corpuscular Volume 88 fL Mean Corpuscular Hemoglobin 29 pg Mean Corpuscular Hemoglobin Concent 32 g/dL Red Cell Distribution Width 15.8 % Platelet Count 224 x10^3/uL Neutrophils (%) (Auto) 63 % Lymphocytes (%) (Auto) 15 % Monocytes (%) (Auto) 17 % Eosinophils (%) (Auto) 4 % Basophils (%) (Auto) 1 % Neutrophils # (Auto) 3.7 x10^3uL Lymphocytes # (Auto) 0.9 x10^3/uL Monocytes # (Auto) 1.0 x10^3/uL Eosinophils # (Auto) 0.3 x10^3/uL Basophils # (Auto) 0.0 x10^3/uL Sodium Level 146 mmol/L Potassium Level 3.6 mmol/L Chloride Level 108 mmol/L Carbon Dioxide Level 33 mmol/L Anion Gap 5 Blood Urea Nitrogen 31 mg/dL Creatinine 1.0 mg/dL Estimated GFR (Cockcroft-Gault) 72.5 BUN/Creatinine Ratio 31 Glucose Level 116 mg/dL Calcium Level 8.0 mg/dL Total Bilirubin 0.6 mg/dL Aspartate Amino Transf (AST/SGOT) 26 U/L Alanine Aminotransferase (ALT/SGPT) 139 U/L Alkaline Phosphatase 77 U/L Ammonia 10 mcmol/L Total Protein 6.3 g/dL Albumin 2.8 g/dL Albumin/Globulin Ratio 0.8 Carbamazepine (Tegretol) Level 4.5 mcg/mL Carbamazepine Last Dose Date 09/27/20 Carbamazepine Last Dose Time 2100 Current Medications Medications (Trade) Dose Ordered Sig/Abundio Route PRN Reason Start Time Stop Time Status Last Admin Dose Admin Acetaminophen (Tylenol) 650 mg PRN Q6HRS PRN PO MILD PAIN / TEMP > 100.3'F 09/17/20 15:30 09/21/20 07:53 DC 09/20/20 20:31 Multi-Ingredient Ointment (Analgesic [place]) 1 will PRN QID PRN TP MUSCLE PAIN 09/17/20 15:30 Al Hydroxide/Mg Hydroxide (Mylanta Plus Xs) 15 ml PRN AFTMEALHC PRN PO DYSPEPSIA 09/17/20 15:30 Magnesium Hydroxide (Milk Of Magnesia) 2,400 mg PRN QHS PRN PO 1st choice CONSTIPATION 09/17/20 15:30 09/22/20 22:26 Acetaminophen (Tylenol) 650 mg BID PO 09/17/20 21:00 09/28/20 20:31 Acetaminophen (Tylenol) 650 mg PRN Q6HRS PRN PO MILD PAIN 1-3/ TEMP 09/17/20 16:15 Aspirin (Aspirin Chewable) 81 mg DAILY PO 09/18/20 09:00 09/28/20 08:24 Atorvastatin Calcium (Lipitor) 10 mg QHS PO 09/17/20 21:00 09/28/20 20:31 Bisacodyl (Dulcolax Supp) 10 mg PRN DAILY PRN RC 2nd choice CONSTIPATION 09/17/20 16:15 Diclofenac Sodium (Voltaren) 1 will PRN Q8HRS PRN TP MUSCLE PAIN 09/17/20 16:15 Divalproex Sodium (Depakote Er) 750 mg QHS PO 09/17/20 21:00 09/23/20 18:19 DC 09/22/20 20:42 Lorazepam (Ativan) 0.5 mg PRN BID PRN PO 1ST CHOICE ANXIETY 09/17/20 16:15 09/25/20 18:36 Mirtazapine (Remeron) 15 mg QHS PO 09/17/20 21:00 09/28/20 20:31 Olanzapine (ZyPREXA ZYDIS) 2.5 mg PRN Q2HR PRN PO 2ND CHOICE ANXIETY / AGITATION 09/17/20 16:15 09/22/20 10:42 Oxycodone/ Acetaminophen (Percocet 7.5/ 325) 1 tab PRN Q8HRS PRN PO MOD-SEVERE PAIN 09/17/20 16:15 09/23/20 15:50 Artificial Tears (Artificial Tears) 1 drop PRN Q15MIN PRN OU DRY EYE 09/17/20 16:15 Prazosin HCl (Minipress) 3 mg QHS PO 09/17/20 21:00 09/28/20 20:31 Quetiapine Fumarate (SEROquel) 37.5 mg 0900,1300,1700 PO 09/17/20 17:00 09/22/20 18:34 DC 09/22/20 16:14 Quetiapine Fumarate (SEROquel) 50 mg PRN DAILY PRN PO 3RD CHOICE ANXIETY / AGITATION 09/17/20 16:15 Quetiapine Fumarate (SEROquel) 100 mg QHS PO 09/17/20 21:00 09/22/20 18:34 DC 09/21/20 20:53 Sertraline HCl (Zoloft) 100 mg DAILY@1700 PO 09/17/20 17:00 09/28/20 17:26 Trazodone HCl (Desyrel) 50 mg PRN QHS PRN PO INSOMNIA, MAY REPEAT X1 09/17/20 16:15 09/28/20 20:30 Loperamide HCl (Imodium) 2 mg PRN Q15MIN PRN PO DIARRHEA 09/17/20 16:30 Multivitamins/ Calcium (Thera-M Plus) 1 tab DAILY PO 09/18/20 09:00 09/28/20 08:24 Pantoprazole Sodium (Protonix) 40 mg DAILYAC PO 09/18/20 07:30 09/28/20 08:23 Potassium Chloride (Klor-Con) 10 meq QODAY PO 09/19/20 09:00 09/23/20 11:34 DC 09/21/20 08:08 Quetiapine Fumarate (SEROquel) 75 mg QHS PO 09/22/20 21:00 09/28/20 20:31 Quetiapine Fumarate (SEROquel) 50 mg 0900,1700 PO 09/23/20 09:00 09/28/20 17:26 Quetiapine Fumarate (SEROquel) 37.5 mg 1300 PO 09/23/20 13:00 09/28/20 12:17 Potassium Chloride (Klor-Con) 20 meq 1300 PO 09/23/20 13:00 09/23/20 19:08 DC 09/23/20 12:03 Furosemide (Lasix) 80 mg 1300 PO 09/23/20 13:00 09/23/20 19:08 DC 09/23/20 12:03 Furosemide (Lasix) 80 mg DAILY PO 09/24/20 09:00 09/28/20 08:23 Potassium Chloride (Klor-Con) 20 meq DAILY PO 09/24/20 09:00 09/28/20 08:24 Carbamazepine (TEGretol) 100 mg DAILY@0900,1700 PO 09/25/20 20:15 09/28/20 17:26 I have reviewed the current psychotropics carefully including drug interactions. Risk benefit ratio favors no change other than as noted in my dictated progress note. Diagnosis: Problems: (1) Impulse control disorder, unspecified (2) PTSD (post-traumatic stress disorder) (3) Anxiety disorder, unspecified (4) Dementia, vascular, with depression (5) Dementia, vascular, with delusions (6) Dementia in Alzheimer's disease with depression (7) Dementia in Alzheimer's disease with delusions (8) Dementia of the Alzheimer's type with early onset with behavioral disturbance (9) Major neurocognitive disorder DUANE NINO MD Sep 28, 2020 22:08
[2020-09-29 06:19] VITALS: BP 129/78
[2020-09-29] MEDS: ACETAMINOPHEN 325 MG TABLET PO SCH ×2 (08:34→20:31)
[2020-09-29] MEDS: ASPIRIN CHEWABLE 81 MG TABLET. PO SCH (08:34)
[2020-09-29] MEDS: POTASSIUM CHLORIDE 20 MEQ TABLET.ER. PO SCH (08:34)
[2020-09-29] MEDS: carBAMazepine 100 MG TAB.CHEW PO SCH (08:35)
[2020-09-29] MEDS: PANTOPRAZOLE 40 MG TABLET. PO SCH (08:35)
[2020-09-29] MEDS: QUEtiapine 25 MG TABLET. PO SCH ×4 (08:35→20:31)
[2020-09-29] MEDS: MULTIVITAMIN with MINERAL TABLET. PO SCH (08:35)
[2020-09-29] MEDS: FUROSEMIDE 80 MG TABLET PO SCH (08:35)
[2020-09-29 15:32] VITALS: BP 120/74
[2020-09-29] MEDS: SERTRALINE 100 MG TABLET. PO SCH (17:40)
[2020-09-29] MEDS: carBAMazepine 200 MG TABLET PO SCH (17:41)
--- NOTE | 2020-09-29 18:30 | NUR ---
Patient has generally been calm, compliant, and pleasantly confused throughout this shift. He was preoccupied with a brown and white hat, and frequently asked staff about the hat. He was social with peers and at dinner stated that another patient was his sister and that we should make sure she gets one of everything. Will continue to monitor and report to oncoming shift.
[2020-09-29] MEDS: ATORVASTATIN CALCIUM 10 MG TABLET. PO SCH (20:30)
[2020-09-29] MEDS: PRAZOSIN 1 MG CAPSULE. PO SCH (20:30)
[2020-09-29] MEDS: MIRTAZAPINE 15 MG TABLET PO SCH (20:30)
[2020-09-29] MEDS: LORazepam 0.5 MG TABLET PO PRN (20:31)
[2020-09-29] MEDS: traZODone 50 MG TABLET. PO PRN (21:40)
--- NOTE | 2020-09-29 22:19 | PDOC ---
Exam Note: Raman Note: Please also refer to the separate dictated note~for this date of service dictated separately.~Patient seen individually. Discussed the patient with Nursing staff reviewed the chart.~Reviewed interim history and current functioning. Reviewed vital signs,~Labs/ Radiology~and current medications noted below. Continue current treatment with the changes noted in the dictated addendum note Assessment: Vital Signs/I&O: Vital Signs Date Time Temp Pulse Resp B/P (MAP) Pulse Ox O2 Delivery O2 Flow Rate FiO2 09/29/20 20:30 76 120/74 09/29/20 15:32 97.2 18 97 Room Air I & O 09/28/20 09/28/20 09/29/20 15:00 23:00 07:00 Intake Total 840 ml 480 ml Balance 840 ml 480 ml Current Medications: Meds: Current Medications Medications (Trade) Dose Ordered Sig/Abundio Route PRN Reason Start Time Stop Time Status Last Admin Dose Admin Acetaminophen (Tylenol) 650 mg PRN Q6HRS PRN PO MILD PAIN / TEMP > 100.3'F 09/17/20 15:30 09/21/20 07:53 DC 09/20/20 20:31 Multi-Ingredient Ointment (Analgesic [place]) 1 will PRN QID PRN TP MUSCLE PAIN 09/17/20 15:30 Al Hydroxide/Mg Hydroxide (Mylanta Plus Xs) 15 ml PRN AFTMEALHC PRN PO DYSPEPSIA 09/17/20 15:30 Magnesium Hydroxide (Milk Of Magnesia) 2,400 mg PRN QHS PRN PO 1st choice CONSTIPATION 09/17/20 15:30 09/22/20 22:26 Acetaminophen (Tylenol) 650 mg BID PO 09/17/20 21:00 09/29/20 20:31 Acetaminophen (Tylenol) 650 mg PRN Q6HRS PRN PO MILD PAIN 1-3/ TEMP 09/17/20 16:15 Aspirin (Aspirin Chewable) 81 mg DAILY PO 09/18/20 09:00 09/29/20 08:34 Atorvastatin Calcium (Lipitor) 10 mg QHS PO 09/17/20 21:00 09/29/20 20:30 Bisacodyl (Dulcolax Supp) 10 mg PRN DAILY PRN RC 2nd choice CONSTIPATION 09/17/20 16:15 Diclofenac Sodium (Voltaren) 1 will PRN Q8HRS PRN TP MUSCLE PAIN 09/17/20 16:15 Divalproex Sodium (Depakote Er) 750 mg QHS PO 09/17/20 21:00 09/23/20 18:19 DC 09/22/20 20:42 Lorazepam (Ativan) 0.5 mg PRN BID PRN PO 1ST CHOICE ANXIETY 09/17/20 16:15 09/29/20 20:31 Mirtazapine (Remeron) 15 mg QHS PO 09/17/20 21:00 09/29/20 20:30 Olanzapine (ZyPREXA ZYDIS) 2.5 mg PRN Q2HR PRN PO 2ND CHOICE ANXIETY / AGITATION 09/17/20 16:15 09/22/20 10:42 Oxycodone/ Acetaminophen (Percocet 7.5/ 325) 1 tab PRN Q8HRS PRN PO MOD-SEVERE PAIN 09/17/20 16:15 09/23/20 15:50 Artificial Tears (Artificial Tears) 1 drop PRN Q15MIN PRN OU DRY EYE 09/17/20 16:15 Prazosin HCl (Minipress) 3 mg QHS PO 09/17/20 21:00 09/29/20 20:30 Quetiapine Fumarate (SEROquel) 37.5 mg 0900,1300,1700 PO 09/17/20 17:00 09/22/20 18:34 DC 09/22/20 16:14 Quetiapine Fumarate (SEROquel) 50 mg PRN DAILY PRN PO 3RD CHOICE ANXIETY / AGITATION 09/17/20 16:15 Quetiapine Fumarate (SEROquel) 100 mg QHS PO 09/17/20 21:00 09/22/20 18:34 DC 09/21/20 20:53 Sertraline HCl (Zoloft) 100 mg DAILY@1700 PO 09/17/20 17:00 09/29/20 17:40 Trazodone HCl (Desyrel) 50 mg PRN QHS PRN PO INSOMNIA, MAY REPEAT X1 09/17/20 16:15 09/29/20 21:40 Loperamide HCl (Imodium) 2 mg PRN Q15MIN PRN PO DIARRHEA 09/17/20 16:30 Multivitamins/ Calcium (Thera-M Plus) 1 tab DAILY PO 09/18/20 09:00 09/29/20 08:35 Pantoprazole Sodium (Protonix) 40 mg DAILYAC PO 09/18/20 07:30 09/29/20 08:35 Potassium Chloride (Klor-Con) 10 meq QODAY PO 09/19/20 09:00 09/23/20 11:34 DC 09/21/20 08:08 Quetiapine Fumarate (SEROquel) 75 mg QHS PO 09/22/20 21:00 09/29/20 20:31 Quetiapine Fumarate (SEROquel) 50 mg 0900,1700 PO 09/23/20 09:00 09/29/20 17:41 Quetiapine Fumarate (SEROquel) 37.5 mg 1300 PO 09/23/20 13:00 09/29/20 12:17 Potassium Chloride (Klor-Con) 20 meq 1300 PO 09/23/20 13:00 09/23/20 19:08 DC 09/23/20 12:03 Furosemide (Lasix) 80 mg 1300 PO 09/23/20 13:00 09/23/20 19:08 DC 09/23/20 12:03 Furosemide (Lasix) 80 mg DAILY PO 09/24/20 09:00 09/29/20 08:35 Potassium Chloride (Klor-Con) 20 meq DAILY PO 09/24/20 09:00 09/29/20 08:34 Carbamazepine (TEGretol) 100 mg DAILY@0900,1700 PO 09/25/20 20:15 09/29/20 00:02 DC 09/28/20 17:26 Carbamazepine (TEGretol) 100 mg DAILY PO 09/29/20 09:00 09/29/20 08:35 Carbamazepine (TEGretol) 200 mg DAILYWSUP PO 09/29/20 17:00 09/29/20 17:41 Current Medications Medications (Trade) Dose Ordered Sig/Abundio Route PRN Reason Start Time Stop Time Status Last Admin Dose Admin Carbamazepine (TEGretol) 100 mg DAILY PO 09/29/20 09:00 09/29/20 08:35 Carbamazepine (TEGretol) 200 mg DAILYWSUP PO 09/29/20 17:00 09/29/20 17:41 I have reviewed the current psychotropics carefully including drug interactions. Risk benefit ratio favors no change other than as noted in my dictated progress note. Diagnosis: Problems: (1) Impulse control disorder, unspecified (2) PTSD (post-traumatic stress disorder) (3) Anxiety disorder, unspecified (4) Dementia, vascular, with depression (5) Dementia, vascular, with delusions (6) Dementia in Alzheimer's disease with depression (7) Dementia in Alzheimer's disease with delusions (8) Dementia of the Alzheimer's type with early onset with behavioral disturbance (9) Major neurocognitive disorder DUANE NINO MD Sep 29, 2020 22:19
--- NOTE | 2020-09-30 01:04 | NUR ---
Pt wandering in the hallway when approached. Pt pleasantly confused, disorganized, and restless. Pt wandering in and out of other pt rooms, social and interactive with peers, but has been slightly difficult to re-direct. Pt also delusional- thinks he is currently in [place] and that he needs to get across the street to see the kids. PRN Ativan administered with HS medications for restlessness and anxiety although it was somewhat ineffective and therefore PRN Trazodone administered @2140. No agitation or aggression noted thus far this shift.
[2020-09-30] MEDS: oxyCODONE/APAP 7.5/325 1 TAB TABLET PO PRN ×2 (02:30→20:58)
--- NOTE | 2020-09-30 02:30 | NUR ---
Pt c/o bilateral foot pain, burning. Bilateral feet with 3-4+ pitting edema, painful with palpation, cool to touch. PRN Percocet administered at this time, feet elevated in bed. Pt put on Hospitalist list to be seen during rounds.
[2020-09-30 06:03] VITALS: BP 109/66
--- NOTE | 2020-09-30 06:25 | PDOC ---
Exam Note: Raman Note: This note is a late entry for 09/28/2020overs elements not covered in my initial note. Subjective: The patient was seen individually in the evening of 09/28/2020 with Andreia MONTEMAYOR, discussed and reviewed the chart. The patient slept 5 hours previous night. He has been calm, confused. He takes medications crushed. Tegretol level is 4.5 on 100 mg b.i.d. Review of Systems: No CV, , pulmonary, eye system symptoms on review. Reliability poor. Mental Status Exam: The patient is oriented to himself. I met with him in the dayroom. Insight and judgment, recent and remote memory, attention and concentration is poor consistent with his diagnoses. Laboratory Data: Reviewed. Impression: Major neurocognitive disorder Alzheimer vascular with delusion, depression, and behavioral disturbance. Anxiety disorder unspecified. Impulse control disorder unspecified. PTSD. Plan: Continue rest psychotropics unchanged. We will increase 100 mg a.m. and 200 mg h.s. of Tegretol and repeat labs and Tegretol level in 3 days. Assessment: Vital Signs/I&O: Vital Signs Date Time Temp Pulse Resp B/P (MAP) Pulse Ox O2 Delivery O2 Flow Rate FiO2 09/30/20 06:03 97.8 89 14 109/66 (80) 97 09/30/20 03:00 Room Air I & O 09/29/20 09/29/20 09/30/20 15:00 23:00 07:00 Intake Total 600 ml 390 ml Balance 600 ml 390 ml Current Medications: Meds: Current Medications Medications (Trade) Dose Ordered Sig/Abundio Route PRN Reason Start Time Stop Time Status Last Admin Dose Admin Acetaminophen (Tylenol) 650 mg PRN Q6HRS PRN PO MILD PAIN / TEMP > 100.3'F 09/17/20 15:30 09/21/20 07:53 DC 09/20/20 20:31 Multi-Ingredient Ointment (Analgesic [place]) 1 will PRN QID PRN TP MUSCLE PAIN 09/17/20 15:30 Al Hydroxide/Mg Hydroxide (Mylanta Plus Xs) 15 ml PRN AFTMEALHC PRN PO DYSPEPSIA 09/17/20 15:30 Magnesium Hydroxide (Milk Of Magnesia) 2,400 mg PRN QHS PRN PO 1st choice CONSTIPATION 09/17/20 15:30 8/7/21 22:26 Acetaminophen (Tylenol) 650 mg BID PO 09/17/20 21:00 09/29/20 20:31 Acetaminophen (Tylenol) 650 mg PRN Q6HRS PRN PO MILD PAIN 1-3/ TEMP 09/17/20 16:15 Aspirin (Aspirin Chewable) 81 mg DAILY PO 09/18/20 09:00 09/29/20 08:34 Atorvastatin Calcium (Lipitor) 10 mg QHS PO 09/17/20 21:00 09/29/20 20:30 Bisacodyl (Dulcolax Supp) 10 mg PRN DAILY PRN RC 2nd choice CONSTIPATION 09/17/20 16:15 Diclofenac Sodium (Voltaren) 1 will PRN Q8HRS PRN TP MUSCLE PAIN 09/17/20 16:15 Divalproex Sodium (Depakote Er) 750 mg QHS PO 09/17/20 21:00 09/23/20 18:19 DC 09/22/20 20:42 Lorazepam (Ativan) 0.5 mg PRN BID PRN PO 1ST CHOICE ANXIETY 09/17/20 16:15 09/29/20 20:31 Mirtazapine (Remeron) 15 mg QHS PO 09/17/20 21:00 09/29/20 20:30 Olanzapine (ZyPREXA ZYDIS) 2.5 mg PRN Q2HR PRN PO 2ND CHOICE ANXIETY / AGITATION 09/17/20 16:15 09/22/20 10:42 Oxycodone/ Acetaminophen (Percocet 7.5/ 325) 1 tab PRN Q8HRS PRN PO MOD-SEVERE PAIN 09/17/20 16:15 09/30/20 02:30 Artificial Tears (Artificial Tears) 1 drop PRN Q15MIN PRN OU DRY EYE 09/17/20 16:15 Prazosin HCl (Minipress) 3 mg QHS PO 09/17/20 21:00 09/29/20 20:30 Quetiapine Fumarate (SEROquel) 37.5 mg 0900,1300,1700 PO 09/17/20 17:00 09/22/20 18:34 DC 09/22/20 16:14 Quetiapine Fumarate (SEROquel) 50 mg PRN DAILY PRN PO 3RD CHOICE ANXIETY / AGITATION 09/17/20 16:15 Quetiapine Fumarate (SEROquel) 100 mg QHS PO 09/17/20 21:00 09/22/20 18:34 DC 09/21/20 20:53 Sertraline HCl (Zoloft) 100 mg DAILY@1700 PO 09/17/20 17:00 09/29/20 17:40 Trazodone HCl (Desyrel) 50 mg PRN QHS PRN PO INSOMNIA, MAY REPEAT X1 09/17/20 16:15 09/29/20 21:40 Loperamide HCl (Imodium) 2 mg PRN Q15MIN PRN PO DIARRHEA 09/17/20 16:30 Multivitamins/ Calcium (Thera-M Plus) 1 tab DAILY PO 09/18/20 09:00 09/29/20 08:35 Pantoprazole Sodium (Protonix) 40 mg DAILYAC PO 09/18/20 07:30 09/29/20 08:35 Potassium Chloride (Klor-Con) 10 meq QODAY PO 09/19/20 09:00 09/23/20 11:34 DC 09/21/20 08:08 Quetiapine Fumarate (SEROquel) 75 mg QHS PO 09/22/20 21:00 09/29/20 20:31 Quetiapine Fumarate (SEROquel) 50 mg 0900,1700 PO 09/23/20 09:00 09/29/20 17:41 Quetiapine Fumarate (SEROquel) 37.5 mg 1300 PO 09/23/20 13:00 09/29/20 12:17 Potassium Chloride (Klor-Con) 20 meq 1300 PO 09/23/20 13:00 09/23/20 19:08 DC 09/23/20 12:03 Furosemide (Lasix) 80 mg 1300 PO 09/23/20 13:00 09/23/20 19:08 DC 09/23/20 12:03 Furosemide (Lasix) 80 mg DAILY PO 09/24/20 09:00 09/29/20 08:35 Potassium Chloride (Klor-Con) 20 meq DAILY PO 09/24/20 09:00 09/29/20 08:34 Carbamazepine (TEGretol) 100 mg DAILY@0900,1700 PO 09/25/20 20:15 09/29/20 00:02 DC 09/28/20 17:26 Carbamazepine (TEGretol) 100 mg DAILY PO 09/29/20 09:00 09/29/20 08:35 Carbamazepine (TEGretol) 200 mg DAILYWSUP PO 09/29/20 17:00 09/29/20 17:41 Current Medications Medications (Trade) Dose Ordered Sig/Abundio Route PRN Reason Start Time Stop Time Status Last Admin Dose Admin Carbamazepine (TEGretol) 100 mg DAILY PO 09/29/20 09:00 09/29/20 08:35 Carbamazepine (TEGretol) 200 mg DAILYWSUP PO 09/29/20 17:00 09/29/20 17:41 I have reviewed the current psychotropics carefully including drug interactions. Risk benefit ratio favors no change other than as noted in my dictated progress note. Diagnosis: Problems: (1) Impulse control disorder, unspecified (2) PTSD (post-traumatic stress disorder) (3) Anxiety disorder, unspecified (4) Dementia, vascular, with depression (5) Dementia, vascular, with delusions (6) Dementia in Alzheimer's disease with depression (7) Dementia in Alzheimer's disease with delusions (8) Dementia of the Alzheimer's type with early onset with behavioral disturbance (9) Major neurocognitive disorder DUANE NINO MD Sep 30, 2020 06:25
[2020-09-30] MEDS: MULTIVITAMIN with MINERAL TABLET. PO SCH (08:26)
[2020-09-30] MEDS: QUEtiapine 25 MG TABLET. PO SCH ×4 (08:26→20:11)
[2020-09-30] MEDS: carBAMazepine 100 MG TAB.CHEW PO SCH (08:27)
[2020-09-30] MEDS: POTASSIUM CHLORIDE 20 MEQ TABLET.ER. PO SCH ×2 (08:27→17:47)
[2020-09-30] MEDS: ASPIRIN CHEWABLE 81 MG TABLET. PO SCH (08:27)
[2020-09-30] MEDS: ACETAMINOPHEN 325 MG TABLET PO SCH ×2 (08:28→20:10)
[2020-09-30] MEDS: PANTOPRAZOLE 40 MG TABLET. PO SCH (08:28)
[2020-09-30] MEDS: FUROSEMIDE 80 MG TABLET PO SCH (08:28)
[2020-09-30 16:06] VITALS: BP 116/70
[2020-09-30] MEDS: SERTRALINE 100 MG TABLET. PO SCH (17:47)
[2020-09-30] MEDS: carBAMazepine 200 MG TABLET PO SCH (17:47)
[2020-09-30] MEDS ORDERED: POTASSIUM CHLORIDE 20 MEQ TABLET.ER. PO SCH (18:00)
--- NOTE | 2020-09-30 18:33 | NUR ---
Patient has generally been calm, compliant, and pleasantly confused throughout this shift. He occasionally asked about a brown and white hat, stating that it was made of fine linen and that he 'just had it a minute ago.' At lunch and supper, patient had urinary urgency and attempted to urinate in the hallway after leaving the dining room. Will continue to monitor and report to oncoming shift.
[2020-09-30] MEDS: ATORVASTATIN CALCIUM 10 MG TABLET. PO SCH (20:10)
[2020-09-30] MEDS: MIRTAZAPINE 15 MG TABLET PO SCH (20:10)
[2020-09-30] MEDS: traZODone 50 MG TABLET. PO PRN (20:11)
[2020-09-30] MEDS: PRAZOSIN 1 MG CAPSULE. PO SCH (20:11)
[2020-09-30] MEDS: LORazepam 0.5 MG TABLET PO PRN (20:11)
--- NOTE | 2020-09-30 22:59 | NUR ---
Patient is wandering around the unit on assumption of care. He is in pleasant spirits, confused, disorganized. Intrusive, going in and out of other patients' rooms, difficulty following instructions to remain in the hallway or in his own room. PRN Ativan and Trazodone given with HS meds due to anxiety and poor sleep the previous evening. Meds were given crushed in pudding and patient was compliant. Shortly after laying down in bed, patient began to get restless, getting up and down repeatedly. He complained of pain in his bilateral feet, stating "This is just some dumb shit, it hurts so much." PRN Percocet given to patient at that time, with good effect. He appears to be sleeping comfortably at present time. Will continue to monitor.
[2020-10-01 05:41] VITALS: BP 127/70
[2020-10-01] MEDS: PANTOPRAZOLE 40 MG TABLET. PO SCH (07:30)
[2020-10-01] MEDS: POTASSIUM CHLORIDE 20 MEQ TABLET.ER. PO SCH ×2 (08:00→17:00)
[2020-10-01] MEDS: ASPIRIN CHEWABLE 81 MG TABLET. PO SCH (09:00)
[2020-10-01] MEDS: MULTIVITAMIN with MINERAL TABLET. PO SCH (09:00)
[2020-10-01] MEDS: FUROSEMIDE 80 MG TABLET PO SCH (09:00)
[2020-10-01] MEDS: metOLazone 2.5 MG TABLET PO SCH (09:00)
[2020-10-01] MEDS: ACETAMINOPHEN 325 MG TABLET PO SCH ×2 (09:00→21:10)
[2020-10-01] MEDS: QUEtiapine 25 MG TABLET. PO SCH ×4 (09:00→21:11)
[2020-10-01] MEDS: carBAMazepine 100 MG TAB.CHEW PO SCH ×2 (09:00→17:14)
--- NOTE | 2020-10-01 09:41 | PDOC ---
Exam Note: Raman Note: Late entry for 09/30/2020. Please also refer to the separate dictated note~for this date of service dictated separately.~Patient seen individually. Discussed the patient with Nursing staff reviewed the chart.~Reviewed interim history and current functioning. Reviewed vital signs,~Labs/ Radiology~and current medic ations noted below. Continue current treatment with the changes noted in the dictated addendum note Assessment: Vital Signs/I&O: Vital Signs Date Time Temp Pulse Resp B/P (MAP) Pulse Ox O2 Delivery O2 Flow Rate FiO2 10/01/20 05:41 97.1 89 16 127/70 (89) 97 09/30/20 03:00 Room Air I & O 0 09/30/20 09/30/20 10/01/20 15:00 23:00 07:00 Intake Total 720 ml 360 ml Balance 720 ml 360 ml Current Medications: Meds: Current Medications Medications (Trade) Dose Ordered Sig/Abundio Route PRN Reason Start Time Stop Time Status Last Admin Dose Admin Acetaminophen (Tylenol) 650 mg PRN Q6HRS PRN PO MILD PAIN / TEMP > 100.3'F 09/17/20 15:30 09/21/20 07:53 DC 09/20/20 20:31 Multi-Ingredient Ointment (Analgesic [place]) 1 will PRN QID PRN TP MUSCLE PAIN 09/17/20 15:30 Al Hydroxide/Mg Hydroxide (Mylanta Plus Xs) 15 ml PRN AFTMEALHC PRN PO DYSPEPSIA 09/17/20 15:30 Magnesium Hydroxide (Milk Of Magnesia) 2,400 mg PRN QHS PRN PO 1st choice CONSTIPATION 09/17/20 15:30 09/22/20 22:26 Acetaminophen (Tylenol) 650 mg BID PO 09/17/20 21:00 09/30/20 20:10 Acetaminophen (Tylenol) 650 mg PRN Q6HRS PRN PO MILD PAIN 1-3/ TEMP 09/17/20 16:15 Aspirin (Aspirin Chewable) 81 mg DAILY PO 09/18/20 09:00 09/30/20 08:27 Atorvastatin Calcium (Lipitor) 10 mg QHS PO 09/17/20 21:00 09/30/20 20:10 Bisacodyl (Dulcolax Supp) 10 mg PRN DAILY PRN RC 2nd choice CONSTIPATION 09/17/20 16:15 Diclofenac Sodium (Voltaren) 1 will PRN Q8HRS PRN TP MUSCLE PAIN 09/17/20 16:15 Divalproex Sodium (Depakote Er) 750 mg QHS PO 09/17/20 21:00 09/23/20 18:19 DC 09/22/20 20:42 Lorazepam (Ativan) 0.5 mg PRN BID PRN PO 1ST CHOICE ANXIETY 09/17/20 16:15 09/30/20 20:11 Mirtazapine (Remeron) 15 mg QHS PO 09/17/20 21:00 09/30/20 20:10 Olanzapine (ZyPREXA ZYDIS) 2.5 mg PRN Q2HR PRN PO 2ND CHOICE ANXIETY / AGITATION 09/17/20 16:15 09/22/20 10:42 Oxycodone/ Acetaminophen (Percocet 7.5/ 325) 1 tab PRN Q8HRS PRN PO MOD-SEVERE PAIN 09/17/20 16:15 09/30/20 20:58 Artificial Tears (Artificial Tears) 1 drop PRN Q15MIN PRN OU DRY EYE 09/17/20 16:15 Prazosin HCl (Minipress) 3 mg QHS PO 09/17/20 21:00 09/30/20 20:11 Quetiapine Fumarate (SEROquel) 37.5 mg 0900,1300,1700 PO 09/17/20 17:00 09/22/20 18:34 DC 09/22/20 16:14 Quetiapine Fumarate (SEROquel) 50 mg PRN DAILY PRN PO 3RD CHOICE ANXIETY / AGITATION 09/17/20 16:15 Quetiapine Fumarate (SEROquel) 100 mg QHS PO 09/17/20 21:00 09/22/20 18:34 DC 09/21/20 20:53 Sertraline HCl (Zoloft) 100 mg DAILY@1700 PO 09/17/20 17:00 09/30/20 17:47 Trazodone HCl (Desyrel) 50 mg PRN QHS PRN PO INSOMNIA, MAY REPEAT X1 09/17/20 16:15 09/30/20 20:11 Loperamide HCl (Imodium) 2 mg PRN Q15MIN PRN PO DIARRHEA 09/17/20 16:30 Multivitamins/ Calcium (Thera-M Plus) 1 tab DAILY PO 09/18/20 09:00 09/30/20 08:26 Pantoprazole Sodium (Protonix) 40 mg DAILYAC PO 09/18/20 07:30 09/30/20 08:28 Potassium Chloride (Klor-Con) 10 meq QODAY PO 09/19/20 09:00 09/23/20 11:34 DC 09/21/20 08:08 Quetiapine Fumarate (SEROquel) 75 mg QHS PO 09/22/20 21:00 09/30/20 20:11 Quetiapine Fumarate (SEROquel) 50 mg 0900,1700 PO 09/23/20 09:00 09/30/20 17:47 Quetiapine Fumarate (SEROquel) 37.5 mg 1300 PO 09/23/20 13:00 09/30/20 12:31 Potassium Chloride (Klor-Con) 20 meq 1300 PO 09/23/20 13:00 09/23/20 19:08 DC 09/23/20 12:03 Furosemide (Lasix) 80 mg 1300 PO 09/23/20 13:00 09/23/20 19:08 DC 09/23/20 12:03 Furosemide (Lasix) 80 mg DAILY PO 09/24/20 09:00 09/30/20 08:28 Potassium Chloride (Klor-Con) 20 meq DAILY PO 09/24/20 09:00 09/30/20 17:27 DC 09/30/20 08:27 Carbamazepine (TEGretol) 100 mg DAILY@0900,1700 PO 09/25/20 20:15 09/29/20 00:02 DC 09/28/20 17:26 Carbamazepine (TEGretol) 100 mg DAILY PO 09/29/20 09:00 09/30/20 08:27 Carbamazepine (TEGretol) 200 mg DAILYWSUP PO 09/29/20 17:00 09/30/20 17:47 Potassium Chloride (Klor-Con) 20 meq BID PO 09/30/20 18:00 09/30/20 17:31 DC Metolazone (Zaroxolyn) 2.5 mg DAILY PO 10/01/20 09:00 Potassium Chloride (Klor-Con) 20 meq BIDWMEALS PO 09/30/20 18:00 09/30/20 17:47 Current Medications Medications (Trade) Dose Ordered Sig/Abundio Route PRN Reason Start Time Stop Time Status Last Admin Dose Admin Potassium Chloride (Klor-Con) 20 meq BIDWMEALS PO 09/30/20 18:00 09/30/20 17:47 I have reviewed the current psychotropics carefully including drug interactions. Risk benefit ratio favors no change other than as noted in my dictated progress note. Diagnosis: Problems: (1) Impulse control disorder, unspecified (2) PTSD (post-traumatic stress disorder) (3) Anxiety disorder, unspecified (4) Dementia, vascular, with depression (5) Dementia, vascular, with delusions (6) Dementia in Alzheimer's disease with depression (7) Dementia in Alzheimer's disease with delusions (8) Dementia of the Alzheimer's type with early onset with behavioral disturbance (9) Major neurocognitive disorder DUANE NINO MD Oct 01, 2020 09:41
--- NOTE | 2020-10-01 10:05 | NUR ---
Nurse Note Patient up for meal, medication compliant with medication in pudding crushed. Socializing with his peers. No new behaviors noted. No aggression toward staff or other patients.
--- NOTE | 2020-10-01 13:35 | NUR ---
After review with Dr. Davis, will proceed with d/c on 10/02/20. Updated Jacinda, admissions at [facility], of plan and faxed weekend notes and medication list for review. Awaiting transport time. Call placed to [facility], /POA, and message left to inform of above.
--- NOTE | 2020-10-01 13:40 | NUR ---
[facility] Social Work Discharge Planning Form Patient Name MADHUNIEVES BONILLA Admit Date: 08/27/20, re-admit 09/17/20 after 10 day quarantine DISCHARGE PLAN Discharge Destination: [facility] Care Assessment: Previously completed Transportation: [facility] to transport on 10/02/20, bean picker time to be determined. Special Instructions/Notes: Upon return to [facility], schedule f/u appointment with PCP/house physician in 7-14 days. Eric has an appointment at the [facility], Dr. Sutton, on 10/18/20 at 1:30pm. [facility] is located at [address] [address], [address], 1st floor, room [address]136. DISCHARGE TO FACILITY Facility: [facility] Address: [address] [place] [address] Contact Name: dulce Michaud Contact Name: RENE Hutson PCP: Dr. Harry [facility], , (fax) Psychiatrist: Dr. Sutton [phone], (fax)
[2020-10-01 15:44] VITALS: BP 101/63
[2020-10-01] MEDS: carBAMazepine 200 MG TABLET PO SCH (17:00)
[2020-10-01] MEDS: SERTRALINE 100 MG TABLET. PO SCH (17:14)
[2020-10-01] MEDS: PRAZOSIN 1 MG CAPSULE. PO SCH (21:10)
[2020-10-01] MEDS: ATORVASTATIN CALCIUM 10 MG TABLET. PO SCH (21:10)
[2020-10-01] MEDS: MIRTAZAPINE 15 MG TABLET PO SCH (21:10)
[2020-10-01] MEDS: traZODone 50 MG TABLET. PO PRN ×2 (21:11→23:41)
[2020-10-01] MEDS ORDERED: QUET50TA5 PO (22:03)
--- NOTE | 2020-10-01 22:05 | PDOC ---
Exam Note: Raman Note: Please also refer to the separate dictated note~for this date of service dictated separately.~Patient seen individually. Discussed the patient with Nursing staff reviewed the chart.~Reviewed interim history and current functioning. Reviewed vital signs,~Labs/ Radiology~and current medications noted below. Continue current treatment with the changes noted in the dictated addendum note Assessment: Vital Signs/I&O: Vital Signs Date Time Temp Pulse Resp B/P (MAP) Pulse Ox O2 Delivery O2 Flow Rate FiO2 10/01/20 21:10 73 101/63 10/01/20 15:44 98.1 16 100 Room Air I & O 09/30/20 09/30/20 10/01/20 15:00 23:00 07:00 Intake Total 720 ml 360 ml Balance 720 ml 360 ml Current Medications: Meds: Current Medications Medications (Trade) Dose Ordered Sig/Abundio Route PRN Reason Start Time Stop Time Status Last Admin Dose Admin Metolazone (Zaroxolyn) 2.5 mg DAILY PO 10/01/20 09:00 10/01/20 09:00 I have reviewed the current psychotropics carefully including drug interactions. Risk benefit ratio favors no change other than as noted in my dictated progress note. Diagnosis: Problems: (1) Impulse control disorder, unspecified (2) PTSD (post-traumatic stress disorder) (3) Anxiety disorder, unspecified (4) Dementia, vascular, with depression (5) Dementia, vascular, with delusions (6) Dementia in Alzheimer's disease with depression (7) Dementia in Alzheimer's disease with delusions (8) Dementia of the Alzheimer's type with early onset with behavioral disturbance (9) Major neurocognitive disorder DUANE NINO MD Oct 01, 2020 22:05
[2020-10-01] MEDS ORDERED: METH57CR17 TP (22:09)
[2020-10-01] MEDS ORDERED: CARB200T PO ×2 (22:13→22:23)
[2020-10-01] MEDS ORDERED: MAG-124 PO (22:17)
[2020-10-01] MEDS ORDERED: FURO80TA72 PO (22:18)
[2020-10-01] MEDS ORDERED: METO2.5T PO (22:20)
[2020-10-01] MEDS ORDERED: MAGN24003 PO (22:26)
--- NOTE | 2020-10-02 01:51 | NUR ---
Nursing Note Pt woke up multiple times in the night wandering around the halls, trazodone given X2 also zydis. Pt now resting well. Pt compliant with meds in pudding cooperative with assessment.
[2020-10-02 05:37] VITALS: BP 107/53
[2020-10-02] MEDS: PANTOPRAZOLE 40 MG TABLET. PO SCH (08:23)
[2020-10-02] MEDS: ACETAMINOPHEN 325 MG TABLET PO SCH ×2 (08:23→20:17)
[2020-10-02] MEDS: metOLazone 2.5 MG TABLET PO SCH (08:23)
[2020-10-02] MEDS: QUEtiapine 25 MG TABLET. PO SCH ×4 (08:23→20:17)
[2020-10-02] MEDS: ASPIRIN CHEWABLE 81 MG TABLET. PO SCH (08:23)
[2020-10-02] MEDS: FUROSEMIDE 80 MG TABLET PO SCH (08:24)
[2020-10-02] MEDS: POTASSIUM CHLORIDE 20 MEQ TABLET.ER. PO SCH ×2 (08:24→17:00)
[2020-10-02] MEDS: MULTIVITAMIN with MINERAL TABLET. PO SCH (08:24)
--- NOTE | 2020-10-02 13:28 | NUR ---
Nsg Note; angelo has urinated on the wall in the corner twice today. he was reminded to use the bathrooms, but he is forgetful. he has been calm and med compliant today, staying in the dayroom between meals.
--- NOTE | 2020-10-02 13:36 | NUR ---
RENE received call from Jacinda at [facility] requesting additional health care information prior to Eric's d/c. Jacinda requested chest x ray results, CBC, CM, BNP, weights, physician documentation as to why the diuretics had been prescribed, documentation on how Eric is responding to the diuretics, and Tegretol level. RENE left message for Dr. Pappas, him director, about facilities request. D/C is on hold at this time. RENE left message for [facility], , to inform of above. RENE will fax the requested information to [facility] once obtained. Addendum: 10/02/20 at 1344 by MARYBEL LÓPEZ RAFFAELE
[2020-10-02 13:53] LABS: BASO % 1 % (0-3); EOS % 16 % (0-3); HEMATOCRIT 34.3 % (39.0-53.0); LYMPH # 0.9 x10^3/uL (1.0-4.8); LYMPH % 15 % (24-48); MEAN CORPUSCULAR HEMOGLOBIN 28 pg (25-35); MEAN CORPUSCULAR HGB CONC 32 g/dL (31-37); MEAN CORPUSCULAR VOLUME 87 fL (79-100); MONO # 0.7 x10^3/uL (0.0-1.1); MONO % 12 % (0-9); NEUT # 3.5 x10^3uL (1.8-7.7); NEUT % 57 % (31-73); PLATELET COUNT 256 x10^3/uL (140-400); RED BLOOD COUNT 3.93 x10^6/uL (4.30-5.70); RED CELL DISTRIBUTION WIDTH 15.9 % (11.5-14.5); WHITE BLOOD COUNT 6.1 x10^3/uL (4.0-11.0)
[2020-10-02 14:06] LABS: ALBUMIN 2.9 g/dL (3.4-5.0); ALBUMIN/GLOBULIN RATIO 0.7 (1.0-1.7); CALCIUM 8.6 mg/dL (8.5-10.1); CREATININE 1.1 mg/dL (0.7-1.3); GFR 64.9; POTASSIUM 3.8 mmol/L (3.5-5.1); TOTAL BILIRUBIN 0.3 mg/dL (0.2-1.0); TOTAL PROTEIN 6.8 g/dL (6.4-8.2)
--- NOTE | 2020-10-02 15:06 | NUR ---
Nsg note; after urinating on the floor x2, angelo was placed in a onesie. he asked for help to urinate and staff unzipped the onesie and he was able to void in the toilet. later, he was able to pull down the brief inside the onesie then urinated in the inside of the onesie. he was placed back in regular clothes as the onesie was not helpful in containing his urination
[2020-10-02 15:25] VITALS: BP 102/63
[2020-10-02 16:30] LABS: CARBAM 4.7 mcg/mL (4.0-12.0)
[2020-10-02] MEDS: carBAMazepine 200 MG TABLET PO SCH (17:00)
[2020-10-02] MEDS: SERTRALINE 100 MG TABLET. PO SCH (17:00)
[2020-10-02] MEDS: ATORVASTATIN CALCIUM 10 MG TABLET. PO SCH (20:16)
[2020-10-02] MEDS: MIRTAZAPINE 15 MG TABLET PO SCH (20:17)
[2020-10-02] MEDS: traZODone 50 MG TABLET. PO PRN (20:18)
[2020-10-02] MEDS: PRAZOSIN 1 MG CAPSULE. PO SCH (20:23)
[2020-10-02] MEDS: oxyCODONE/APAP 7.5/325 1 TAB TABLET PO PRN (20:49)
--- NOTE | 2020-10-02 22:09 | PDOC ---
Exam Note: Raman Note: This note is a late entry for 09/29/2020overs elements not covered in my initial note. Subjective: The patient was reviewed on telehealth rounds in the evening of 09/29/2020 with Andreia MONTEMAYOR due to COVID-19 pandemic, discussed and reviewed the chart. The patient slept 4-1/4 hours previous night. He remains confused. He has been looking for a brown hat, has been exit seeking. Review of Systems: No CV, , pulmonary, eye system symptoms on review. Reliability poor. Mental Status Exam: The patient is oriented to himself. Insight and judgment, recent and remote memory, attention and concentration, fund of knowledge is poor consistent with his diagnoses. Laboratory Data: Reviewed. Impression: Major neurocognitive disorder Alzheimer vascular with delusion, depression, and behavioral disturbance. Anxiety disorder unspecified. Impulse control disorder unspecified. PTSD. Plan: Continue rest psychotropics unchanged. Assessment: Vital Signs/I&O: Vital Signs Date Time Temp Pulse Resp B/P (MAP) Pulse Ox O2 Delivery O2 Flow Rate FiO2 10/02/20 21:19 97 10/02/20 20:23 81 118/56 10/02/20 15:25 97.3 18 Room Air I & O 10/01/20 10/01/20 10/02/20 15:00 23:00 07:00 Intake Total 600 ml 360 ml Balance 600 ml 360 ml Labs: Laboratory Tests Test 10/02/20 13:36 White Blood Count 6.1 x10^3/uL (4.0-11.0) Red Blood Count 3.93 x10^6/uL (4.30-5.70) L Hemoglobin 11.0 g/dL (13.0-17.5) L Hematocrit 34.3 % (39.0-53.0) L Mean Corpuscular Volume 87 fL (79-100) Mean Corpuscular Hemoglobin 28 pg (25-35) Mean Corpuscular Hemoglobin Concent 32 g/dL (31-37) Red Cell Distribution Width 15.9 % (11.5-14.5) H Platelet Count 256 x10^3/uL (140-400) Neutrophils (%) (Auto) 57 % (31-73) Lymphocytes (%) (Auto) 15 % (24-48) L Monocytes (%) (Auto) 12 % (0-9) H Eosinophils (%) (Auto) 16 % (0-3) H Basophils (%) (Auto) 1 % (0-3) Neutrophils # (Auto) 3.5 x10^3uL (1.8-7.7) Lymphocytes # (Auto) 0.9 x10^3/uL (1.0-4.8) L Monocytes # (Auto) 0.7 x10^3/uL (0.0-1.1) Eosinophils # (Auto) 1.0 x10^3/uL (0.0-0.7) H Basophils # (Auto) 0.0 x10^3/uL (0.0-0.2) Sodium Level 148 mmol/L (136-145) H Potassium Level 3.8 mmol/L (3.5-5.1) Chloride Level 109 mmol/L (98-107) H Carbon Dioxide Level 36 mmol/L (21-32) H Anion Gap 3 (6-14) L Blood Urea Nitrogen 35 mg/dL (8-26) H Creatinine 1.1 mg/dL (0.7-1.3) Estimated GFR (Cockcroft-Gault) 64.9 BUN/Creatinine Ratio 32 (6-20) H Glucose Level 108 mg/dL (70-99) H Calcium Level 8.6 mg/dL (8.5-10.1) Total Bilirubin 0.3 mg/dL (0.2-1.0) Aspartate Amino Transferase (AST) 20 U/L (15-37) Alanine Aminotransferase (ALT) 73 U/L (16-63) H Alkaline Phosphatase 89 U/L (46-116) Total Protein 6.8 g/dL (6.4-8.2) Albumin 2.9 g/dL (3.4-5.0) L Albumin/Globulin Ratio 0.7 (1.0-1.7) L Carbamazepine (Tegretol) Level 4.7 mcg/mL (4.0-12.0) Carbamazepine Last Dose Date 10/01/20 Carbamazepine Last Dose Time 1700 Current Medications: Meds: Laboratory Tests Test 10/02/20 13:36 White Blood Count 6.1 x10^3/uL Red Blood Count 3.93 x10^6/uL Hemoglobin 11.0 g/dL Hematocrit 34.3 % Mean Corpuscular Volume 87 fL Mean Corpuscular Hemoglobin 28 pg Mean Corpuscular Hemoglobin Concent 32 g/dL Red Cell Distribution Width 15.9 % Platelet Count 256 x10^3/uL Neutrophils (%) (Auto) 57 % Lymphocytes (%) (Auto) 15 % Monocytes (%) (Auto) 12 % Eosinophils (%) (Auto) 16 % Basophils (%) (Auto) 1 % Neutrophils # (Auto) 3.5 x10^3uL Lymphocytes # (Auto) 0.9 x10^3/uL Monocytes # (Auto) 0.7 x10^3/uL Eosinophils # (Auto) 1.0 x10^3/uL Basophils # (Auto) 0.0 x10^3/uL Sodium Level 148 mmol/L Potassium Level 3.8 mmol/L Chloride Level 109 mmol/L Carbon Dioxide Level 36 mmol/L Anion Gap 3 Blood Urea Nitrogen 35 mg/dL Creatinine 1.1 mg/dL Estimated GFR (Cockcroft-Gault) 64.9 BUN/Creatinine Ratio 32 Glucose Level 108 mg/dL Calcium Level 8.6 mg/dL Total Bilirubin 0.3 mg/dL Aspartate Amino Transf (AST/SGOT) 20 U/L Alanine Aminotransferase (ALT/SGPT) 73 U/L Alkaline Phosphatase 89 U/L Total Protein 6.8 g/dL Albumin 2.9 g/dL Albumin/Globulin Ratio 0.7 Carbamazepine (Tegretol) Level 4.7 mcg/mL Carbamazepine Last Dose Date 10/01/20 Carbamazepine Last Dose Time 1700 Current Medications Medications (Trade) Dose Ordered Sig/Abundio Route PRN Reason Start Time Stop Time Status Last Admin Dose Admin Acetaminophen (Tylenol) 650 mg PRN Q6HRS PRN PO MILD PAIN / TEMP > 100.3'F 09/17/20 15:30 09/21/20 07:53 DC 09/20/20 20:31 Multi-Ingredient Ointment (Analgesic [place]) 1 will PRN QID PRN TP MUSCLE PAIN 09/17/20 15:30 Al Hydroxide/Mg Hydroxide (Mylanta Plus Xs) 15 ml PRN AFTMEALHC PRN PO DYSPEPSIA 09/17/20 15:30 Magnesium Hydroxide (Milk Of Magnesia) 2,400 mg PRN QHS PRN PO 1st choice CONSTIPATION 09/17/20 15:30 09/22/20 22:26 Acetaminophen (Tylenol) 650 mg BID PO 09/17/20 21:00 10/02/20 20:17 Acetaminophen (Tylenol) 650 mg PRN Q6HRS PRN PO MILD PAIN 1-3/ TEMP 09/17/20 16:15 Aspirin (Aspirin Chewable) 81 mg DAILY PO 09/18/20 09:00 10/02/20 08:23 Atorvastatin Calcium (Lipitor) 10 mg QHS PO 09/17/20 21:00 10/02/20 20:16 Bisacodyl (Dulcolax Supp) 10 mg PRN DAILY PRN RC 2nd choice CONSTIPATION 09/17/20 16:15 Diclofenac Sodium (Voltaren) 1 will PRN Q8HRS PRN TP MUSCLE PAIN 09/17/20 16:15 Divalproex Sodium (Depakote Er) 750 mg QHS PO 09/17/20 21:00 09/23/20 18:19 DC 09/22/20 20:42 Lorazepam (Ativan) 0.5 mg PRN BID PRN PO 1ST CHOICE ANXIETY 09/17/20 16:15 09/30/20 20:11 Mirtazapine (Remeron) 15 mg QHS PO 09/17/20 21:00 10/02/20 20:17 Olanzapine (ZyPREXA ZYDIS) 2.5 mg PRN Q2HR PRN PO 2ND CHOICE ANXIETY / AGITATION 09/17/20 16:15 10/01/20 23:41 Oxycodone/ Acetaminophen (Percocet 7.5/ 325) 1 tab PRN Q8HRS PRN PO MOD-SEVERE PAIN 09/17/20 16:15 10/02/20 20:49 Artificial Tears (Artificial Tears) 1 drop PRN Q15MIN PRN OU DRY EYE 09/17/20 16:15 Prazosin HCl (Minipress) 3 mg QHS PO 09/17/20 21:00 10/02/20 20:23 Quetiapine Fumarate (SEROquel) 37.5 mg 0900,1300,1700 PO 09/17/20 17:00 09/22/20 18:34 DC 09/22/20 16:14 Quetiapine Fumarate (SEROquel) 50 mg PRN DAILY PRN PO 3RD CHOICE ANXIETY / AGITATION 09/17/20 16:15 Quetiapine Fumarate (SEROquel) 100 mg QHS PO 09/17/20 21:00 09/22/20 18:34 DC 09/21/20 20:53 Sertraline HCl (Zoloft) 100 mg DAILY@1700 PO 09/17/20 17:00 10/02/20 17:00 Trazodone HCl (Desyrel) 50 mg PRN QHS PRN PO INSOMNIA, MAY REPEAT X1 09/17/20 16:15 10/02/20 20:18 Loperamide HCl (Imodium) 2 mg PRN Q15MIN PRN PO DIARRHEA 09/17/20 16:30 Multivitamins/ Calcium (Thera-M Plus) 1 tab DAILY PO 09/18/20 09:00 10/02/20 08:24 Pantoprazole Sodium (Protonix) 40 mg DAILYAC PO 09/18/20 07:30 10/02/20 08:23 Potassium Chloride (Klor-Con) 10 meq QODAY PO 09/19/20 09:00 09/23/20 11:34 DC 09/21/20 08:08 Quetiapine Fumarate (SEROquel) 75 mg QHS PO 09/22/20 21:00 10/02/20 20:17 Quetiapine Fumarate (SEROquel) 50 mg 0900,1700 PO 09/23/20 09:00 10/02/20 17:00 Quetiapine Fumarate (SEROquel) 37.5 mg 1300 PO 09/23/20 13:00 10/02/20 12:56 Potassium Chloride (Klor-Con) 20 meq 1300 PO 09/23/20 13:00 09/23/20 19:08 DC 09/23/20 12:03 Furosemide (Lasix) 80 mg 1300 PO 09/23/20 13:00 09/23/20 19:08 DC 09/23/20 12:03 Furosemide (Lasix) 80 mg DAILY PO 09/24/20 09:00 10/02/20 17:26 DC 10/02/20 08:24 Potassium Chloride (Klor-Con) 20 meq DAILY PO 09/24/20 09:00 09/30/20 17:27 DC 09/30/20 08:27 Carbamazepine (TEGretol) 100 mg DAILY@0900,1700 PO 09/25/20 20:15 09/29/20 00:02 DC 09/28/20 17:26 Carbamazepine (TEGretol) 100 mg DAILY PO 09/29/20 09:00 10/02/20 16:45 DC 10/01/20 17:14 Carbamazepine (TEGretol) 200 mg DAILYWSUP PO 09/29/20 17:00 10/02/20 17:00 Potassium Chloride (Klor-Con) 20 meq BID PO 09/30/20 18:00 09/30/20 17:31 DC Metolazone (Zaroxolyn) 2.5 mg DAILY PO 10/01/20 09:00 10/02/20 17:26 DC 10/02/20 08:23 Potassium Chloride (Klor-Con) 20 meq BIDWMEALS PO 09/30/20 18:00 10/02/20 17:00 Carbamazepine (TEGretol) 200 mg DAILY PO 10/03/20 09:00 Furosemide (Lasix) 40 mg DAILY PO 10/03/20 09:00 I have reviewed the current psychotropics carefully including drug interactions. Risk benefit ratio favors no change other than as noted in my dictated progress note. Diagnosis: Problems: (1) Impulse control disorder, unspecified (2) PTSD (post-traumatic stress disorder) (3) Anxiety disorder, unspecified (4) Dementia, vascular, with depression (5) Dementia, vascular, with delusions (6) Dementia in Alzheimer's disease with depression (7) Dementia in Alzheimer's disease with delusions (8) Dementia of the Alzheimer's type with early onset with behavioral disturbance (9) Major neurocognitive disorder DUANE NINO MD Oct 02, 2020 22:09
--- NOTE | 2020-10-02 22:22 | PDOC ---
Exam Note: Raman Note: This note is a late entry for 09/30/2020overs elements not covered in my initial note. Subjective: The patient was seen on video telehealth services in the evening of 09/30/2020 with Scott MONTEMAYOR due to COVID-19 pandemic, discussed and reviewed the chart. The patient slept 6-1/4 hours previous night. Previous night he has been wandering into the room of other patients and beds. Received Ativan at 2030 hours, trazodone at 2140 hours, Percocet at 2.30 a.m. He has been confused. Review of Systems: No CV, , pulmonary, eye system symptoms on review. Reliability poor. Mental Status Exam: The patient is oriented to himself. I met with him in the dayroom. Insight and judgment, recent and remote memory, attention and concentration, fund of knowledge is poor consistent with his diagnoses. Laboratory Data: Reviewed. Impression: Major neurocognitive disorder Alzheimer vascular with delusion, depression, and behavioral disturbance. Anxiety disorder unspecified. Impulse control disorder unspecified. PTSD. Plan: Continue rest psychotropics unchanged. Assessment: Vital Signs/I&O: Vital Signs Date Time Temp Pulse Resp B/P (MAP) Pulse Ox O2 Delivery O2 Flow Rate FiO2 10/02/20 21:19 97 10/02/20 20:23 81 118/56 10/02/20 15:25 97.3 18 Room Air I & O 10/01/20 10/01/20 10/02/20 15:00 23:00 07:00 Intake Total 600 ml 360 ml Balance 600 ml 360 ml Labs: Laboratory Tests Test 10/02/20 13:36 White Blood Count 6.1 x10^3/uL (4.0-11.0) Red Blood Count 3.93 x10^6/uL (4.30-5.70) L Hemoglobin 11.0 g/dL (13.0-17.5) L Hematocrit 34.3 % (39.0-53.0) L Mean Corpuscular Volume 87 fL (79-100) Mean Corpuscular Hemoglobin 28 pg (25-35) Mean Corpuscular Hemoglobin Concent 32 g/dL (31-37) Red Cell Distribution Width 15.9 % (11.5-14.5) H Platelet Count 256 x10^3/uL (140-400) Neutrophils (%) (Auto) 57 % (31-73) Lymphocytes (%) (Auto) 15 % (24-48) L Monocytes (%) (Auto) 12 % (0-9) H Eosinophils (%) (Auto) 16 % (0-3) H Basophils (%) (Auto) 1 % (0-3) Neutrophils # (Auto) 3.5 x10^3uL (1.8-7.7) Lymphocytes # (Auto) 0.9 x10^3/uL (1.0-4.8) L Monocytes # (Auto) 0.7 x10^3/uL (0.0-1.1) Eosinophils # (Auto) 1.0 x10^3/uL (0.0-0.7) H Basophils # (Auto) 0.0 x10^3/uL (0.0-0.2) Sodium Level 148 mmol/L (136-145) H Potassium Level 3.8 mmol/L (3.5-5.1) Chloride Level 109 mmol/L (98-107) H Carbon Dioxide Level 36 mmol/L (21-32) H Anion Gap 3 (6-14) L Blood Urea Nitrogen 35 mg/dL (8-26) H Creatinine 1.1 mg/dL (0.7-1.3) Estimated GFR (Cockcroft-Gault) 64.9 BUN/Creatinine Ratio 32 (6-20) H Glucose Level 108 mg/dL (70-99) H Calcium Level 8.6 mg/dL (8.5-10.1) Total Bilirubin 0.3 mg/dL (0.2-1.0) Aspartate Amino Transferase (AST) 20 U/L (15-37) Alanine Aminotransferase (ALT) 73 U/L (16-63) H Alkaline Phosphatase 89 U/L (46-116) Total Protein 6.8 g/dL (6.4-8.2) Albumin 2.9 g/dL (3.4-5.0) L Albumin/Globulin Ratio 0.7 (1.0-1.7) L Carbamazepine (Tegretol) Level 4.7 mcg/mL (4.0-12.0) Carbamazepine Last Dose Date 10/01/20 Carbamazepine Last Dose Time 1700 Current Medications: Meds: Laboratory Tests Test 10/02/20 13:36 White Blood Count 6.1 x10^3/uL Red Blood Count 3.93 x10^6/uL Hemoglobin 11.0 g/dL Hematocrit 34.3 % Mean Corpuscular Volume 87 fL Mean Corpuscular Hemoglobin 28 pg Mean Corpuscular Hemoglobin Concent 32 g/dL Red Cell Distribution Width 15.9 % Platelet Count 256 x10^3/uL Neutrophils (%) (Auto) 57 % Lymphocytes (%) (Auto) 15 % Monocytes (%) (Auto) 12 % Eosinophils (%) (Auto) 16 % Basophils (%) (Auto) 1 % Neutrophils # (Auto) 3.5 x10^3uL Lymphocytes # (Auto) 0.9 x10^3/uL Monocytes # (Auto) 0.7 x10^3/uL Eosinophils # (Auto) 1.0 x10^3/uL Basophils # (Auto) 0.0 x10^3/uL Sodium Level 148 mmol/L Potassium Level 3.8 mmol/L Chloride Level 109 mmol/L Carbon Dioxide Level 36 mmol/L Anion Gap 3 Blood Urea Nitrogen 35 mg/dL Creatinine 1.1 mg/dL Estimated GFR (Cockcroft-Gault) 64.9 BUN/Creatinine Ratio 32 Glucose Level 108 mg/dL Calcium Level 8.6 mg/dL Total Bilirubin 0.3 mg/dL Aspartate Amino Transf (AST/SGOT) 20 U/L Alanine Aminotransferase (ALT/SGPT) 73 U/L Alkaline Phosphatase 89 U/L Total Protein 6.8 g/dL Albumin 2.9 g/dL Albumin/Globulin Ratio 0.7 Carbamazepine (Tegretol) Level 4.7 mcg/mL Carbamazepine Last Dose Date 10/01/20 Carbamazepine Last Dose Time 1700 Current Medications Medications (Trade) Dose Ordered Sig/Abundio Route PRN Reason Start Time Stop Time Status Last Admin Dose Admin Acetaminophen (Tylenol) 650 mg PRN Q6HRS PRN PO MILD PAIN / TEMP > 100.3'F 09/17/20 15:30 09/21/20 07:53 DC 09/20/20 20:31 Multi-Ingredient Ointment (Analgesic [place]) 1 will PRN QID PRN TP MUSCLE PAIN 09/17/20 15:30 Al Hydroxide/Mg Hydroxide (Mylanta Plus Xs) 15 ml PRN AFTMEALHC PRN PO DYSPEPSIA 09/17/20 15:30 Magnesium Hydroxide (Milk Of Magnesia) 2,400 mg PRN QHS PRN PO 1st choice CONSTIPATION 09/17/20 15:30 09/22/20 22:26 Acetaminophen (Tylenol) 650 mg BID PO 09/17/20 21:00 10/02/20 20:17 Acetaminophen (Tylenol) 650 mg PRN Q6HRS PRN PO MILD PAIN 1-3/ TEMP 09/17/20 16:15 Aspirin (Aspirin Chewable) 81 mg DAILY PO 09/18/20 09:00 10/02/20 08:23 Atorvastatin Calcium (Lipitor) 10 mg QHS PO 09/17/20 21:00 10/02/20 20:16 Bisacodyl (Dulcolax Supp) 10 mg PRN DAILY PRN RC 2nd choice CONSTIPATION 09/17/20 16:15 Diclofenac Sodium (Voltaren) 1 will PRN Q8HRS PRN TP MUSCLE PAIN 09/17/20 16:15 Divalproex Sodium (Depakote Er) 750 mg QHS PO 09/17/20 21:00 09/23/20 18:19 DC 09/22/20 20:42 Lorazepam (Ativan) 0.5 mg PRN BID PRN PO 1ST CHOICE ANXIETY 09/17/20 16:15 09/30/20 20:11 Mirtazapine (Remeron) 15 mg QHS PO 09/17/20 21:00 10/02/20 20:17 Olanzapine (ZyPREXA ZYDIS) 2.5 mg PRN Q2HR PRN PO 2ND CHOICE ANXIETY / AGITATION 09/17/20 16:15 10/01/20 23:41 Oxycodone/ Acetaminophen (Percocet 7.5/ 325) 1 tab PRN Q8HRS PRN PO MOD-SEVERE PAIN 09/17/20 16:15 10/02/20 20:49 Artificial Tears (Artificial Tears) 1 drop PRN Q15MIN PRN OU DRY EYE 09/17/20 16:15 Prazosin HCl (Minipress) 3 mg QHS PO 09/17/20 21:00 10/02/20 20:23 Quetiapine Fumarate (SEROquel) 37.5 mg 0900,1300,1700 PO 09/17/20 17:00 09/22/20 18:34 DC 09/22/20 16:14 Quetiapine Fumarate (SEROquel) 50 mg PRN DAILY PRN PO 3RD CHOICE ANXIETY / AGITATION 09/17/20 16:15 Quetiapine Fumarate (SEROquel) 100 mg QHS PO 09/17/20 21:00 09/22/20 18:34 DC 09/21/20 20:53 Sertraline HCl (Zoloft) 100 mg DAILY@1700 PO 09/17/20 17:00 10/02/20 17:00 Trazodone HCl (Desyrel) 50 mg PRN QHS PRN PO INSOMNIA, MAY REPEAT X1 09/17/20 16:15 10/02/20 20:18 Loperamide HCl (Imodium) 2 mg PRN Q15MIN PRN PO DIARRHEA 09/17/20 16:30 Multivitamins/ Calcium (Thera-M Plus) 1 tab DAILY PO 09/18/20 09:00 10/02/20 08:24 Pantoprazole Sodium (Protonix) 40 mg DAILYAC PO 09/18/20 07:30 10/02/20 08:23 Potassium Chloride (Klor-Con) 10 meq QODAY PO 09/19/20 09:00 09/23/20 11:34 DC 09/21/20 08:08 Quetiapine Fumarate (SEROquel) 75 mg QHS PO 09/22/20 21:00 10/02/20 20:17 Quetiapine Fumarate (SEROquel) 50 mg 0900,1700 PO 09/23/20 09:00 10/02/20 17:00 Quetiapine Fumarate (SEROquel) 37.5 mg 1300 PO 09/23/20 13:00 10/02/20 12:56 Potassium Chloride (Klor-Con) 20 meq 1300 PO 09/23/20 13:00 09/23/20 19:08 DC 09/23/20 12:03 Furosemide (Lasix) 80 mg 1300 PO 09/23/20 13:00 09/23/20 19:08 DC 09/23/20 12:03 Furosemide (Lasix) 80 mg DAILY PO 09/24/20 09:00 10/02/20 17:26 DC 10/02/20 08:24 Potassium Chloride (Klor-Con) 20 meq DAILY PO 09/24/20 09:00 09/30/20 17:27 DC 09/30/20 08:27 Carbamazepine (TEGretol) 100 mg DAILY@0900,1700 PO 09/25/20 20:15 09/29/20 00:02 DC 09/28/20 17:26 Carbamazepine (TEGretol) 100 mg DAILY PO 09/29/20 09:00 10/02/20 16:45 DC 10/01/20 17:14 Carbamazepine (TEGretol) 200 mg DAILYWSUP PO 09/29/20 17:00 10/02/20 17:00 Potassium Chloride (Klor-Con) 20 meq BID PO 09/30/20 18:00 09/30/20 17:31 DC Metolazone (Zaroxolyn) 2.5 mg DAILY PO 10/01/20 09:00 10/02/20 17:26 DC 10/02/20 08:23 Potassium Chloride (Klor-Con) 20 meq BIDWMEALS PO 09/30/20 18:00 10/02/20 17:00 Carbamazepine (TEGretol) 200 mg DAILY PO 10/03/20 09:00 Furosemide (Lasix) 40 mg DAILY PO 10/03/20 09:00 I have reviewed the current psychotropics carefully including drug interactions. Risk benefit ratio favors no change other than as noted in my dictated progress note. Diagnosis: Problems: (1) Impulse control disorder, unspecified (2) PTSD (post-traumatic stress disorder) (3) Anxiety disorder, unspecified (4) Dementia, vascular, with depression (5) Dementia, vascular, with delusions (6) Dementia in Alzheimer's disease with depression (7) Dementia in Alzheimer's disease with delusions (8) Dementia of the Alzheimer's type with early onset with behavioral disturbance (9) Major neurocognitive disorder DUANE NINO MD Oct 02, 2020 22:21
--- NOTE | 2020-10-02 22:36 | PDOC ---
Exam Note: Raman Note: This note is a late entry for 10/01/2020 covers elements not covered in my initial note. Subjective: The patient was seen face to face in the evening of 10/01/2020 with Alysa MONTEMAYOR discussed and reviewed the chart. The patient slept 5-1/4 hours previous night. She remains confused. I met with him at his dinner table. He was having soft food that had been chopped including the meet and he was eating reasonably well but unable to tell me what it was when I questioned him. He remains disorganized, not aggressive. Earlier in the day discussed with Viola Dozier, social service staff about possible transition back to detention tomorrow after we get the Tegretol level in the morning. Review of Systems: No CV, , pulmonary, eye system symptoms on review. Reliability poor. Mental Status Exam: The patient is oriented to himself. I met with him in the dayroom. Insight and judgment, recent and remote memory, attention and concentr ation, fund of knowledge is poor consistent with his diagnoses. Laboratory Data: Reviewed. Impression: Major neurocognitive disorder Alzheimer vascular with delusion, depression, and behavioral disturbance. Anxiety disorder unspecified. Impulse control disorder unspecified. PTSD. Plan: Continue rest psychotropics unchanged. Assessment: Vital Signs/I&O: Vital Signs Date Time Temp Pulse Resp B/P (MAP) Pulse Ox O2 Delivery O2 Flow Rate FiO2 10/02/20 21:19 97 10/02/20 20:23 81 118/56 10/02/20 15:25 97.3 18 Room Air I & O 10/01/20 10/01/20 10/02/20 15:00 23:00 07:00 Intake Total 600 ml 360 ml Balance 600 ml 360 ml Labs: Laboratory Tests Test 10/02/20 13:36 White Blood Count 6.1 x10^3/uL (4.0-11.0) Red Blood Count 3.93 x10^6/uL (4.30-5.70) L Hemoglobin 11.0 g/dL (13.0-17.5) L Hematocrit 34.3 % (39.0-53.0) L Mean Corpuscular Volume 87 fL (79-100) Mean Corpuscular Hemoglobin 28 pg (25-35) Mean Corpuscular Hemoglobin Concent 32 g/dL (31-37) Red Cell Distribution Width 15.9 % (11.5-14.5) H Platelet Count 256 x10^3/uL (140-400) Neutrophils (%) (Auto) 57 % (31-73) Lymphocytes (%) (Auto) 15 % (24-48) L Monocytes (%) (Auto) 12 % (0-9) H Eosinophils (%) (Auto) 16 % (0-3) H Basophils (%) (Auto) 1 % (0-3) Neutrophils # (Auto) 3.5 x10^3uL (1.8-7.7) Lymphocytes # (Auto) 0.9 x10^3/uL (1.0-4.8) L Monocytes # (Auto) 0.7 x10^3/uL (0.0-1.1) Eosinophils # (Auto) 1.0 x10^3/uL (0.0-0.7) H Basophils # (Auto) 0.0 x10^3/uL (0.0-0.2) Sodium Level 148 mmol/L (136-145) H Potassium Level 3.8 mmol/L (3.5-5.1) Chloride Level 109 mmol/L (98-107) H Carbon Dioxide Level 36 mmol/L (21-32) H Anion Gap 3 (6-14) L Blood Urea Nitrogen 35 mg/dL (8-26) H Creatinine 1.1 mg/dL (0.7-1.3) Estimated GFR (Cockcroft-Gault) 64.9 BUN/Creatinine Ratio 32 (6-20) H Glucose Level 108 mg/dL (70-99) H Calcium Level 8.6 mg/dL (8.5-10.1) Total Bilirubin 0.3 mg/dL (0.2-1.0) Aspartate Amino Transferase (AST) 20 U/L (15-37) Alanine Aminotransferase (ALT) 73 U/L (16-63) H Alkaline Phosphatase 89 U/L (46-116) Total Protein 6.8 g/dL (6.4-8.2) Albumin 2.9 g/dL (3.4-5.0) L Albumin/Globulin Ratio 0.7 (1.0-1.7) L Carbamazepine (Tegretol) Level 4.7 mcg/mL (4.0-12.0) Carbamazepine Last Dose Date 10/01/20 Carbamazepine Last Dose Time 1700 Current Medications: Meds: Laboratory Tests Test 10/02/20 13:36 White Blood Count 6.1 x10^3/uL Red Blood Count 3.93 x10^6/uL Hemoglobin 11.0 g/dL Hematocrit 34.3 % Mean Corpuscular Volume 87 fL Mean Corpuscular Hemoglobin 28 pg Mean Corpuscular Hemoglobin Concent 32 g/dL Red Cell Distribution Width 15.9 % Platelet Count 256 x10^3/uL Neutrophils (%) (Auto) 57 % Lymphocytes (%) (Auto) 15 % Monocytes (%) (Auto) 12 % Eosinophils (%) (Auto) 16 % Basophils (%) (Auto) 1 % Neutrophils # (Auto) 3.5 x10^3uL Lymphocytes # (Auto) 0.9 x10^3/uL Monocytes # (Auto) 0.7 x10^3/uL Eosinophils # (Auto) 1.0 x10^3/uL Basophils # (Auto) 0.0 x10^3/uL Sodium Level 148 mmol/L Potassium Level 3.8 mmol/L Chloride Level 109 mmol/L Carbon Dioxide Level 36 mmol/L Anion Gap 3 Blood Urea Nitrogen 35 mg/dL Creatinine 1.1 mg/dL Estimated GFR (Cockcroft-Gault) 64.9 BUN/Creatinine Ratio 32 Glucose Level 108 mg/dL Calcium Level 8.6 mg/dL Total Bilirubin 0.3 mg/dL Aspartate Amino Transf (AST/SGOT) 20 U/L Alanine Aminotransferase (ALT/SGPT) 73 U/L Alkaline Phosphatase 89 U/L Total Protein 6.8 g/dL Albumin 2.9 g/dL Albumin/Globulin Ratio 0.7 Carbamazepine (Tegretol) Level 4.7 mcg/mL Carbamazepine Last Dose Date 10/01/20 Carbamazepine Last Dose Time 1700 Current Medications Medications (Trade) Dose Ordered Sig/Abundio Route PRN Reason Start Time Stop Time Status Last Admin Dose Admin Acetaminophen (Tylenol) 650 mg PRN Q6HRS PRN PO MILD PAIN / TEMP > 100.3'F 09/17/20 15:30 09/21/20 07:53 DC 09/20/20 20:31 Multi-Ingredient Ointment (Analgesic [place]) 1 will PRN QID PRN TP MUSCLE PAIN 09/17/20 15:30 Al Hydroxide/Mg Hydroxide (Mylanta Plus Xs) 15 ml PRN AFTMEALHC PRN PO DYSPEPSIA 09/17/20 15:30 Magnesium Hydroxide (Milk Of Magnesia) 2,400 mg PRN QHS PRN PO 1st choice CONSTIPATION 09/17/20 15:30 09/22/20 22:26 Acetaminophen (Tylenol) 650 mg BID PO 09/17/20 21:00 10/02/20 20:17 Acetaminophen (Tylenol) 650 mg PRN Q6HRS PRN PO MILD PAIN 1-3/ TEMP 09/17/20 16:15 Aspirin (Aspirin Chewable) 81 mg DAILY PO 09/18/20 09:00 10/02/20 08:23 Atorvastatin Calcium (Lipitor) 10 mg QHS PO 09/17/20 21:00 10/02/20 20:16 Bisacodyl (Dulcolax Supp) 10 mg PRN DAILY PRN RC 2nd choice CONSTIPATION 09/17/20 16:15 Diclofenac Sodium (Voltaren) 1 will PRN Q8HRS PRN TP MUSCLE PAIN 09/17/20 16:15 Divalproex Sodium (Depakote Er) 750 mg QHS PO 09/17/20 21:00 09/23/20 18:19 DC 09/22/20 20:42 Lorazepam (Ativan) 0.5 mg PRN BID PRN PO 1ST CHOICE ANXIETY 09/17/20 16:15 09/30/20 20:11 Mirtazapine (Remeron) 15 mg QHS PO 09/17/20 21:00 10/02/20 20:17 Olanzapine (ZyPREXA ZYDIS) 2.5 mg PRN Q2HR PRN PO 2ND CHOICE ANXIETY / AGITATION 09/17/20 16:15 10/01/20 23:41 Oxycodone/ Acetaminophen (Percocet 7.5/ 325) 1 tab PRN Q8HRS PRN PO MOD-SEVERE PAIN 09/17/20 16:15 10/02/20 20:49 Artificial Tears (Artificial Tears) 1 drop PRN Q15MIN PRN OU DRY EYE 09/17/20 16:15 Prazosin HCl (Minipress) 3 mg QHS PO 09/17/20 21:00 10/02/20 20:23 Quetiapine Fumarate (SEROquel) 37.5 mg 0900,1300,1700 PO 09/17/20 17:00 09/22/20 18:34 DC 09/22/20 16:14 Quetiapine Fumarate (SEROquel) 50 mg PRN DAILY PRN PO 3RD CHOICE ANXIETY / AGITATION 09/17/20 16:15 Quetiapine Fumarate (SEROquel) 100 mg QHS PO 09/17/20 21:00 09/22/20 18:34 DC 09/21/20 20:53 Sertraline HCl (Zoloft) 100 mg DAILY@1700 PO 09/17/20 17:00 10/02/20 17:00 Trazodone HCl (Desyrel) 50 mg PRN QHS PRN PO INSOMNIA, MAY REPEAT X1 09/17/20 16:15 10/02/20 20:18 Loperamide HCl (Imodium) 2 mg PRN Q15MIN PRN PO DIARRHEA 09/17/20 16:30 Multivitamins/ Calcium (Thera-M Plus) 1 tab DAILY PO 09/18/20 09:00 10/02/20 08:24 Pantoprazole Sodium (Protonix) 40 mg DAILYAC PO 09/18/20 07:30 10/02/20 08:23 Potassium Chloride (Klor-Con) 10 meq QODAY PO 09/19/20 09:00 09/23/20 11:34 DC 09/21/20 08:08 Quetiapine Fumarate (SEROquel) 75 mg QHS PO 09/22/20 21:00 10/02/20 20:17 Quetiapine Fumarate (SEROquel) 50 mg 0900,1700 PO 09/23/20 09:00 10/02/20 17:00 Quetiapine Fumarate (SEROquel) 37.5 mg 1300 PO 09/23/20 13:00 10/02/20 12:56 Potassium Chloride (Klor-Con) 20 meq 1300 PO 09/23/20 13:00 09/23/20 19:08 DC 09/23/20 12:03 Furosemide (Lasix) 80 mg 1300 PO 09/23/20 13:00 09/23/20 19:08 DC 09/23/20 12:03 Furosemide (Lasix) 80 mg DAILY PO 09/24/20 09:00 10/02/20 17:26 DC 10/02/20 08:24 Potassium Chloride (Klor-Con) 20 meq DAILY PO 09/24/20 09:00 09/30/20 17:27 DC 09/30/20 08:27 Carbamazepine (TEGretol) 100 mg DAILY@0900,1700 PO 09/25/20 20:15 09/29/20 00:02 DC 09/28/20 17:26 Carbamazepine (TEGretol) 100 mg DAILY PO 09/29/20 09:00 10/02/20 16:45 DC 10/01/20 17:14 Carbamazepine (TEGretol) 200 mg DAILYWSUP PO 09/29/20 17:00 10/02/20 17:00 Potassium Chloride (Klor-Con) 20 meq BID PO 09/30/20 18:00 09/30/20 17:31 DC Metolazone (Zaroxolyn) 2.5 mg DAILY PO 10/01/20 09:00 10/02/20 17:26 DC 10/02/20 08:23 Potassium Chloride (Klor-Con) 20 meq BIDWMEALS PO 09/30/20 18:00 10/02/20 17:00 Carbamazepine (TEGretol) 200 mg DAILY PO 10/03/20 09:00 Furosemide (Lasix) 40 mg DAILY PO 10/03/20 09:00 I have reviewed the current psychotropics carefully including drug interactions. Risk benefit ratio favors no change other than as noted in my dictated progress note. Diagnosis: Problems: (1) Impulse control disorder, unspecified (2) PTSD (post-traumatic stress disorder) (3) Anxiety disorder, unspecified (4) Dementia, vascular, with depression (5) Dementia, vascular, with delusions (6) Dementia in Alzheimer's disease with depression (7) Dementia in Alzheimer's disease with delusions (8) Dementia of the Alzheimer's type with early onset with behavioral disturbance (9) Major neurocognitive disorder DUANE NINO MD Oct 02, 2020 22:36
--- NOTE | 2020-10-02 22:37 | PDOC ---
Exam Note: Raman Note: Please also refer to the separate dictated note~for this date of service dictated separately.~Patient seen individually. Discussed the patient with Nursing staff reviewed the chart.~Reviewed interim history and current functioning. Reviewed vital signs,~Labs/ Radiology~and current medications noted below. Continue current treatment with the changes noted in the dictated addendum note Assessment: Vital Signs/I&O: Vital Signs Date Time Temp Pulse Resp B/P (MAP) Pulse Ox O2 Delivery O2 Flow Rate FiO2 10/02/20 21:19 97 10/02/20 20:23 81 118/56 10/02/20 15:25 97.3 18 Room Air I & O 10/01/20 10/01/20 10/02/20 15:00 23:00 07:00 Intake Total 600 ml 360 ml Balance 600 ml 360 ml Labs: Laboratory Tests Test 10/02/20 13:36 White Blood Count 6.1 x10^3/uL (4.0-11.0) Red Blood Count 3.93 x10^6/uL (4.30-5.70) L Hemoglobin 11.0 g/dL (13.0-17.5) L Hematocrit 34.3 % (39.0-53.0) L Mean Corpuscular Volume 87 fL (79-100) Mean Corpuscular Hemoglobin 28 pg (25-35) Mean Corpuscular Hemoglobin Concent 32 g/dL (31-37) Red Cell Distribution Width 15.9 % (11.5-14.5) H Platelet Count 256 x10^3/uL (140-400) Neutrophils (%) (Auto) 57 % (31-73) Lymphocytes (%) (Auto) 15 % (24-48) L Monocytes (%) (Auto) 12 % (0-9) H Eosinophils (%) (Auto) 16 % (0-3) H Basophils (%) (Auto) 1 % (0-3) Neutrophils # (Auto) 3.5 x10^3uL (1.8-7.7) Lymphocytes # (Auto) 0.9 x10^3/uL (1.0-4.8) L Monocytes # (Auto) 0.7 x10^3/uL (0.0-1.1) Eosinophils # (Auto) 1.0 x10^3/uL (0.0-0.7) H Basophils # (Auto) 0.0 x10^3/uL (0.0-0.2) Sodium Level 148 mmol/L (136-145) H Potassium Level 3.8 mmol/L (3.5-5.1) Chloride Level 109 mmol/L (98-107) H Carbon Dioxide Level 36 mmol/L (21-32) H Anion Gap 3 (6-14) L Blood Urea Nitrogen 35 mg/dL (8-26) H Creatinine 1.1 mg/dL (0.7-1.3) Estimated GFR (Cockcroft-Gault) 64.9 BUN/Creatinine Ratio 32 (6-20) H Glucose Level 108 mg/dL (70-99) H Calcium Level 8.6 mg/dL (8.5-10.1) Total Bilirubin 0.3 mg/dL (0.2-1.0) Aspartate Amino Transferase (AST) 20 U/L (15-37) Alanine Aminotransferase (ALT) 73 U/L (16-63) H Alkaline Phosphatase 89 U/L (46-116) Total Protein 6.8 g/dL (6.4-8.2) Albumin 2.9 g/dL (3.4-5.0) L Albumin/Globulin Ratio 0.7 (1.0-1.7) L Carbamazepine (Tegretol) Level 4.7 mcg/mL (4.0-12.0) Carbamazepine Last Dose Date 10/01/20 Carbamazepine Last Dose Time 1700 Current Medications: Meds: Laboratory Tests Test 10/02/20 13:36 White Blood Count 6.1 x10^3/uL Red Blood Count 3.93 x10^6/uL Hemoglobin 11.0 g/dL Hematocrit 34.3 % Mean Corpuscular Volume 87 fL Mean Corpuscular Hemoglobin 28 pg Mean Corpuscular Hemoglobin Concent 32 g/dL Red Cell Distribution Width 15.9 % Platelet Count 256 x10^3/uL Neutrophils (%) (Auto) 57 % Lymphocytes (%) (Auto) 15 % Monocytes (%) (Auto) 12 % Eosinophils (%) (Auto) 16 % Basophils (%) (Auto) 1 % Neutrophils # (Auto) 3.5 x10^3uL Lymphocytes # (Auto) 0.9 x10^3/uL Monocytes # (Auto) 0.7 x10^3/uL Eosinophils # (Auto) 1.0 x10^3/uL Basophils # (Auto) 0.0 x10^3/uL Sodium Level 148 mmol/L Potassium Level 3.8 mmol/L Chloride Level 109 mmol/L Carbon Dioxide Level 36 mmol/L Anion Gap 3 Blood Urea Nitrogen 35 mg/dL Creatinine 1.1 mg/dL Estimated GFR (Cockcroft-Gault) 64.9 BUN/Creatinine Ratio 32 Glucose Level 108 mg/dL Calcium Level 8.6 mg/dL Total Bilirubin 0.3 mg/dL Aspartate Amino Transf (AST/SGOT) 20 U/L Alanine Aminotransferase (ALT/SGPT) 73 U/L Alkaline Phosphatase 89 U/L Total Protein 6.8 g/dL Albumin 2.9 g/dL Albumin/Globulin Ratio 0.7 Carbamazepine (Tegretol) Level 4.7 mcg/mL Carbamazepine Last Dose Date 10/01/20 Carbamazepine Last Dose Time 1700 Current Medications Medications (Trade) Dose Ordered Sig/Abundio Route PRN Reason Start Time Stop Time Status Last Admin Dose Admin Acetaminophen (Tylenol) 650 mg PRN Q6HRS PRN PO MILD PAIN / TEMP > 100.3'F 09/17/20 15:30 09/21/20 07:53 DC 09/20/20 20:31 Multi-Ingredient Ointment (Analgesic [place]) 1 will PRN QID PRN TP MUSCLE PAIN 09/17/20 15:30 Al Hydroxide/Mg Hydroxide (Mylanta Plus Xs) 15 ml PRN AFTMEALHC PRN PO DYSPEPSIA 09/17/20 15:30 Magnesium Hydroxide (Milk Of Magnesia) 2,400 mg PRN QHS PRN PO 1st choice CONSTIPATION 09/17/20 15:30 09/22/20 22:26 Acetaminophen (Tylenol) 650 mg BID PO 09/17/20 21:00 10/02/20 20:17 Acetaminophen (Tylenol) 650 mg PRN Q6HRS PRN PO MILD PAIN 1-3/ TEMP 09/17/20 16:15 Aspirin (Aspirin Chewable) 81 mg DAILY PO 09/18/20 09:00 10/02/20 08:23 Atorvastatin Calcium (Lipitor) 10 mg QHS PO 09/17/20 21:00 10/02/20 20:16 Bisacodyl (Dulcolax Supp) 10 mg PRN DAILY PRN RC 2nd choice CONSTIPATION 09/17/20 16:15 Diclofenac Sodium (Voltaren) 1 will PRN Q8HRS PRN TP MUSCLE PAIN 09/17/20 16:15 Divalproex Sodium (Depakote Er) 750 mg QHS PO 09/17/20 21:00 09/23/20 18:19 DC 09/22/20 20:42 Lorazepam (Ativan) 0.5 mg PRN BID PRN PO 1ST CHOICE ANXIETY 09/17/20 16:15 09/30/20 20:11 Mirtazapine (Remeron) 15 mg QHS PO 09/17/20 21:00 10/02/20 20:17 Olanzapine (ZyPREXA ZYDIS) 2.5 mg PRN Q2HR PRN PO 2ND CHOICE ANXIETY / AGITATION 09/17/20 16:15 10/01/20 23:41 Oxycodone/ Acetaminophen (Percocet 7.5/ 325) 1 tab PRN Q8HRS PRN PO MOD-SEVERE PAIN 09/17/20 16:15 10/02/20 20:49 Artificial Tears (Artificial Tears) 1 drop PRN Q15MIN PRN OU DRY EYE 09/17/20 16:15 Prazosin HCl (Minipress) 3 mg QHS PO 09/17/20 21:00 10/02/20 20:23 Quetiapine Fumarate (SEROquel) 37.5 mg 0900,1300,1700 PO 09/17/20 17:00 09/22/20 18:34 DC 09/22/20 16:14 Quetiapine Fumarate (SEROquel) 50 mg PRN DAILY PRN PO 3RD CHOICE ANXIETY / AGITATION 09/17/20 16:15 Quetiapine Fumarate (SEROquel) 100 mg QHS PO 09/17/20 21:00 09/22/20 18:34 DC 09/21/20 20:53 Sertraline HCl (Zoloft) 100 mg DAILY@1700 PO 09/17/20 17:00 10/02/20 17:00 Trazodone HCl (Desyrel) 50 mg PRN QHS PRN PO INSOMNIA, MAY REPEAT X1 09/17/20 16:15 10/02/20 20:18 Loperamide HCl (Imodium) 2 mg PRN Q15MIN PRN PO DIARRHEA 09/17/20 16:30 Multivitamins/ Calcium (Thera-M Plus) 1 tab DAILY PO 09/18/20 09:00 10/02/20 08:24 Pantoprazole Sodium (Protonix) 40 mg DAILYAC PO 09/18/20 07:30 10/02/20 08:23 Potassium Chloride (Klor-Con) 10 meq QODAY PO 09/19/20 09:00 09/23/20 11:34 DC 09/21/20 08:08 Quetiapine Fumarate (SEROquel) 75 mg QHS PO 09/22/20 21:00 10/02/20 20:17 Quetiapine Fumarate (SEROquel) 50 mg 0900,1700 PO 09/23/20 09:00 10/02/20 17:00 Quetiapine Fumarate (SEROquel) 37.5 mg 1300 PO 09/23/20 13:00 10/02/20 12:56 Potassium Chloride (Klor-Con) 20 meq 1300 PO 09/23/20 13:00 09/23/20 19:08 DC 09/23/20 12:03 Furosemide (Lasix) 80 mg 1300 PO 09/23/20 13:00 09/23/20 19:08 DC 09/23/20 12:03 Furosemide (Lasix) 80 mg DAILY PO 09/24/20 09:00 10/02/20 17:26 DC 10/02/20 08:24 Potassium Chloride (Klor-Con) 20 meq DAILY PO 09/24/20 09:00 09/30/20 17:27 DC 09/30/20 08:27 Carbamazepine (TEGretol) 100 mg DAILY@0900,1700 PO 09/25/20 20:15 09/29/20 00:02 DC 09/28/20 17:26 Carbamazepine (TEGretol) 100 mg DAILY PO 09/29/20 09:00 10/02/20 16:45 DC 10/01/20 17:14 Carbamazepine (TEGretol) 200 mg DAILYWSUP PO 09/29/20 17:00 10/02/20 17:00 Potassium Chloride (Klor-Con) 20 meq BID PO 09/30/20 18:00 09/30/20 17:31 DC Metolazone (Zaroxolyn) 2.5 mg DAILY PO 10/01/20 09:00 10/02/20 17:26 DC 10/02/20 08:23 Potassium Chloride (Klor-Con) 20 meq BIDWMEALS PO 09/30/20 18:00 10/02/20 17:00 Carbamazepine (TEGretol) 200 mg DAILY PO 10/03/20 09:00 Furosemide (Lasix) 40 mg DAILY PO 10/03/20 09:00 I have reviewed the current psychotropics carefully including drug interactions. Risk benefit ratio favors no change other than as noted in my dictated progress note. Diagnosis: Problems: (1) Impulse control disorder, unspecified (2) PTSD (post-traumatic stress disorder) (3) Anxiety disorder, unspecified (4) Dementia, vascular, with depression (5) Dementia, vascular, with delusions (6) Dementia in Alzheimer's disease with depression (7) Dementia in Alzheimer's disease with delusions (8) Dementia of the Alzheimer's type with early onset with behavioral disturbance (9) Major neurocognitive disorder DUANE NINO MD Oct 02, 2020 22:37
--- NOTE | 2020-10-02 22:52 | NUR ---
Pt sitting quietly on his bed when approached. Pt calm, pleasantly confused, and interactive during encounter. Pt cooperative with assessment and compliant with medications administered crushed in applesauce. No agitation or aggression noted thus far this shift.
--- NOTE | 2020-10-03 00:17 | PN ---
DATE: 10/02/2020 SUBJECTIVE: The patient was seen today as he continued to have bilateral lower extremity edema. Nursing staff stated that he has occasional cough, but does not seem to be short of breath. No documented hemoptysis. OBJECTIVE: GENERAL: On examining him, he was sitting comfortably in his chair, eating his dinner without any problem. He was somewhat pale, but no jaundice, cyanosis, no lymphadenopathy, no thyromegaly, no jugular venous distention, but marked bilateral lower extremity edema. VITAL SIGNS: His heart rate was 77, blood pressure is 102/63, temperature 97.3, respiratory rate was 18 and oxygen saturation was 97%. HEAD, EYES, EARS, NOSE AND THROAT: Showed he is normocephalic and atraumatic. NECK: Supple. HEART: Normal first and second heart sounds, no gallop, rub or murmur. CHEST: Shows central trachea, equal bilateral expansion, air entry, vesicular breath sounds. No crepitation or rhonchi. ABDOMEN: Distended, soft, nontender. NEUROLOGIC: He is demented without any obvious lateralizing sign. His intake and output were incompletely recorded. LABORATORY DATA: As of this morning, his white cell count was 6100, hemoglobin 11, hematocrit 34, MCV 87, platelet count 256,000 with normal manual differential. His chemistry showed a serum sodium 148, potassium 3.8, chloride 109, bicarbonate 36, anion gap of 3, BUN 35, creatinine was 1.1. Estimated GFR was 64 mL per minute. His glucose was 108, calcium was 8.6. Total bilirubin, AST, ALT, alkaline phosphatase were normal. His total protein was 6.8, albumin was 2.9. His urinalysis was essentially unremarkable. The urine was yellow, clear with a pH of 7.5, specific gravity 1.015 and the urine was negative for protein, glucose, ketones, blood, nitrite and bilirubin. It was negative for leukocyte esterase. There are no rbc's, no wbc's and no bacteria. ASSESSMENT: In summary, this is a 79-year-old with marked bilateral lower extremity edema involving both feet and legs up to the level slightly below the knee joint. An attempt to treat this empirically was made my colleague, Dr. Weber started him on 80 mg of Lasix and I added metolazone without much of the response to that. Differential includes bilateral lower extremity deep vein thrombosis versus possible nephrotic syndrome, although his urinalysis was negative for protein as his serum albumin the lowest of which was only 2.4 g/dL. We could rule out the deep vein thrombosis by doing the venous Doppler ultrasound and is going to be difficult this decision to start him on anticoagulation if they were positive, but an IVC filter might make things worse for him. The other possibility obviously is nephrotic syndrome, which requires 24-hour urine collection that is practically impossible with him. We have attempted to treat this patient with diuretics empirically, but without really much success. In fact, he probably needs to cut down. I will discontinue his metolazone and cut down Lasix 80 to 40 mg and await the results of venous Doppler ultrasound for the time being. If they are negative perhaps elastic stocking might be an option if he allows to do that. POLINA DR: Jase TID: [id number]
[2020-10-03 05:37] VITALS: BP 104/57
--- NOTE | 2020-10-03 06:40 | PDOC ---
Exam Note: Raman Note: This note is a late entry for 10/02/2020 covers elements not covered in my initial note. Subjective: The patient was seen face to face in the evening of 10/02/2020 with Bere MONTEMAYOR discussed and reviewed the chart. The patient slept 5-1/4 hours previous night. He has been urinating at inappropriate places in the dining room on the fridge and on the leon etc. Nursing staff placed him in an onesie but he found a way around this as well. Some of this is worse because he is on Lasix for pedal edema. He is supposed to be transitioned to the nursing facility today but they have refused for now since he was just started on Lasix per Dr. Pappas. Tegretol level is 4.7. We will increase Tegretol to 200 mg twice a day. Check CBC, CMP, Tegretol level in 3 days. Review of Systems: No CV, , pulmonary, eye, ENT system symptoms on review. Reliability poor. Mental Status Exam: The patient is oriented to himself. Insight and judgment, recent and remote memory, attention and concentration, fund of knowledge is poor consistent with his diagnoses. Laboratory Data: Reviewed. Impression: Major neurocognitive disorder Alzheimer vascular with delusion, depression, and behavioral disturbance. Anxiety disorder unspecified. Impulse control disorder unspecified. PTSD. Plan: Continue current psychotropics with the changes noted above. Follow labs level on the Tegretol and adjust as clinically indicated. Assessment: Vital Signs/I&O: Vital Signs Date Time Temp Pulse Resp B/P (MAP) Pulse Ox O2 Delivery O2 Flow Rate FiO2 10/03/20 05:37 98.2 89 18 104/57 (73) 96 Room Air I & O 10/02/20 10/02/20 10/03/20 14:59 22:59 06:59 Intake Total 600 ml 360 ml Balance 600 ml 360 ml Labs: Laboratory Tests Test 10/02/20 13:36 White Blood Count 6.1 x10^3/uL (4.0-11.0) Red Blood Count 3.93 x10^6/uL (4.30-5.70) L Hemoglobin 11.0 g/dL (13.0-17.5) L Hematocrit 34.3 % (39.0-53.0) L Mean Corpuscular Volume 87 fL (79-100) Mean Corpuscular Hemoglobin 28 pg (25-35) Mean Corpuscular Hemoglobin Concent 32 g/dL (31-37) Red Cell Distribution Width 15.9 % (11.5-14.5) H Platelet Count 256 x10^3/uL (140-400) Neutrophils (%) (Auto) 57 % (31-73) Lymphocytes (%) (Auto) 15 % (24-48) L Monocytes (%) (Auto) 12 % (0-9) H Eosinophils (%) (Auto) 16 % (0-3) H Basophils (%) (Auto) 1 % (0-3) Neutrophils # (Auto) 3.5 x10^3uL (1.8-7.7) Lymphocytes # (Auto) 0.9 x10^3/uL (1.0-4.8) L Monocytes # (Auto) 0.7 x10^3/uL (0.0-1.1) Eosinophils # (Auto) 1.0 x10^3/uL (0.0-0.7) H Basophils # (Auto) 0.0 x10^3/uL (0.0-0.2) Sodium Level 148 mmol/L (136-145) H Potassium Level 3.8 mmol/L (3.5-5.1) Chloride Level 109 mmol/L (98-107) H Carbon Dioxide Level 36 mmol/L (21-32) H Anion Gap 3 (6-14) L Blood Urea Nitrogen 35 mg/dL (8-26) H Creatinine 1.1 mg/dL (0.7-1.3) Estimated GFR (Cockcroft-Gault) 64.9 BUN/Creatinine Ratio 32 (6-20) H Glucose Level 108 mg/dL (70-99) H Calcium Level 8.6 mg/dL (8.5-10.1) Total Bilirubin 0.3 mg/dL (0.2-1.0) Aspartate Amino Transferase (AST) 20 U/L (15-37) Alanine Aminotransferase (ALT) 73 U/L (16-63) H Alkaline Phosphatase 89 U/L (46-116) Total Protein 6.8 g/dL (6.4-8.2) Albumin 2.9 g/dL (3.4-5.0) L Albumin/Globulin Ratio 0.7 (1.0-1.7) L Carbamazepine (Tegretol) Level 4.7 mcg/mL (4.0-12.0) Carbamazepine Last Dose Date 10/01/20 Carbamazepine Last Dose Time 1700 Current Medications: Meds: Laboratory Tests Test 10/02/20 13:36 White Blood Count 6.1 x10^3/uL Red Blood Count 3.93 x10^6/uL Hemoglobin 11.0 g/dL Hematocrit 34.3 % Mean Corpuscular Volume 87 fL Mean Corpuscular Hemoglobin 28 pg Mean Corpuscular Hemoglobin Concent 32 g/dL Red Cell Distribution Width 15.9 % Platelet Count 256 x10^3/uL Neutrophils (%) (Auto) 57 % Lymphocytes (%) (Auto) 15 % Monocytes (%) (Auto) 12 % Eosinophils (%) (Auto) 16 % Basophils (%) (Auto) 1 % Neutrophils # (Auto) 3.5 x10^3uL Lymphocytes # (Auto) 0.9 x10^3/uL Monocytes # (Auto) 0.7 x10^3/uL Eosinophils # (Auto) 1.0 x10^3/uL Basophils # (Auto) 0.0 x10^3/uL Sodium Level 148 mmol/L Potassium Level 3.8 mmol/L Chloride Level 109 mmol/L Carbon Dioxide Level 36 mmol/L Anion Gap 3 Blood Urea Nitrogen 35 mg/dL Creatinine 1.1 mg/dL Estimated GFR (Cockcroft-Gault) 64.9 BUN/Creatinine Ratio 32 Glucose Level 108 mg/dL Calcium Level 8.6 mg/dL Total Bilirubin 0.3 mg/dL Aspartate Amino Transf (AST/SGOT) 20 U/L Alanine Aminotransferase (ALT/SGPT) 73 U/L Alkaline Phosphatase 89 U/L Total Protein 6.8 g/dL Albumin 2.9 g/dL Albumin/Globulin Ratio 0.7 Carbamazepine (Tegretol) Level 4.7 mcg/mL Carbamazepine Last Dose Date 10/01/20 Carbamazepine Last Dose Time 1700 Current Medications Medications (Trade) Dose Ordered Sig/Abundio Route PRN Reason Start Time Stop Time Status Last Admin Dose Admin Acetaminophen (Tylenol) 650 mg PRN Q6HRS PRN PO MILD PAIN / TEMP > 100.3'F 09/17/20 15:30 09/21/20 07:53 DC 09/20/20 20:31 Multi-Ingredient Ointment (Analgesic [place]) 1 will PRN QID PRN TP MUSCLE PAIN 09/17/20 15:30 Al Hydroxide/Mg Hydroxide (Mylanta Plus Xs) 15 ml PRN AFTMEALHC PRN PO DYSPEPSIA 09/17/20 15:30 Magnesium Hydroxide (Milk Of Magnesia) 2,400 mg PRN QHS PRN PO 1st choice CONSTIPATION 09/17/20 15:30 09/22/20 22:26 Acetaminophen (Tylenol) 650 mg BID PO 09/17/20 21:00 10/02/20 20:17 Acetaminophen (Tylenol) 650 mg PRN Q6HRS PRN PO MILD PAIN 1-3/ TEMP 09/17/20 16:15 Aspirin (Aspirin Chewable) 81 mg DAILY PO 09/18/20 09:00 10/02/20 08:23 Atorvastatin Calcium (Lipitor) 10 mg QHS PO 09/17/20 21:00 10/02/20 20:16 Bisacodyl (Dulcolax Supp) 10 mg PRN DAILY PRN RC 2nd choice CONSTIPATION 09/17/20 16:15 Diclofenac Sodium (Voltaren) 1 will PRN Q8HRS PRN TP MUSCLE PAIN 09/17/20 16:15 Divalproex Sodium (Depakote Er) 750 mg QHS PO 09/17/20 21:00 09/23/20 18:19 DC 09/22/20 20:42 Lorazepam (Ativan) 0.5 mg PRN BID PRN PO 1ST CHOICE ANXIETY 09/17/20 16:15 09/30/20 20:11 Mirtazapine (Remeron) 15 mg QHS PO 09/17/20 21:00 10/02/20 20:17 Olanzapine (ZyPREXA ZYDIS) 2.5 mg PRN Q2HR PRN PO 2ND CHOICE ANXIETY / AGITATION 09/17/20 16:15 10/01/20 23:41 Oxycodone/ Acetaminophen (Percocet 7.5/ 325) 1 tab PRN Q8HRS PRN PO MOD-SEVERE PAIN 09/17/20 16:15 10/02/20 20:49 Artificial Tears (Artificial Tears) 1 drop PRN Q15MIN PRN OU DRY EYE 09/17/20 16:15 Prazosin HCl (Minipress) 3 mg QHS PO 09/17/20 21:00 10/02/20 20:23 Quetiapine Fumarate (SEROquel) 37.5 mg 0900,1300,1700 PO 09/17/20 17:00 09/22/20 18:34 DC 09/22/20 16:14 Quetiapine Fumarate (SEROquel) 50 mg PRN DAILY PRN PO 3RD CHOICE ANXIETY / AGITATION 09/17/20 16:15 Quetiapine Fumarate (SEROquel) 100 mg QHS PO 09/17/20 21:00 09/22/20 18:34 DC 09/21/20 20:53 Sertraline HCl (Zoloft) 100 mg DAILY@1700 PO 09/17/20 17:00 10/02/20 17:00 Trazodone HCl (Desyrel) 50 mg PRN QHS PRN PO INSOMNIA, MAY REPEAT X1 09/17/20 16:15 10/02/20 20:18 Loperamide HCl (Imodium) 2 mg PRN Q15MIN PRN PO DIARRHEA 09/17/20 16:30 Multivitamins/ Calcium (Thera-M Plus) 1 tab DAILY PO 09/18/20 09:00 10/02/20 08:24 Pantoprazole Sodium (Protonix) 40 mg DAILYAC PO 09/18/20 07:30 10/02/20 08:23 Potassium Chloride (Klor-Con) 10 meq QODAY PO 09/19/20 09:00 09/23/20 11:34 DC 09/21/20 08:08 Quetiapine Fumarate (SEROquel) 75 mg QHS PO 09/22/20 21:00 10/02/20 20:17 Quetiapine Fumarate (SEROquel) 50 mg 0900,1700 PO 09/23/20 09:00 10/02/20 17:00 Quetiapine Fumarate (SEROquel) 37.5 mg 1300 PO 09/23/20 13:00 10/02/20 12:56 Potassium Chloride (Klor-Con) 20 meq 1300 PO 09/23/20 13:00 09/23/20 19:08 DC 09/23/20 12:03 Furosemide (Lasix) 80 mg 1300 PO 09/23/20 13:00 09/23/20 19:08 DC 09/23/20 12:03 Furosemide (Lasix) 80 mg DAILY PO 09/24/20 09:00 10/02/20 17:26 DC 10/02/20 08:24 Potassium Chloride (Klor-Con) 20 meq DAILY PO 09/24/20 09:00 09/30/20 17:27 DC 09/30/20 08:27 Carbamazepine (TEGretol) 100 mg DAILY@0900,1700 PO 09/25/20 20:15 09/29/20 00:02 DC 09/28/20 17:26 Carbamazepine (TEGretol) 100 mg DAILY PO 09/29/20 09:00 10/02/20 16:45 DC 10/01/20 17:14 Carbamazepine (TEGretol) 200 mg DAILYWSUP PO 09/29/20 17:00 10/02/20 17:00 Potassium Chloride (Klor-Con) 20 meq BID PO 09/30/20 18:00 09/30/20 17:31 DC Metolazone (Zaroxolyn) 2.5 mg DAILY PO 10/01/20 09:00 10/02/20 17:26 DC 10/02/20 08:23 Potassium Chloride (Klor-Con) 20 meq BIDWMEALS PO 09/30/20 18:00 10/02/20 17:00 Carbamazepine (TEGretol) 200 mg DAILY PO 10/03/20 09:00 Furosemide (Lasix) 40 mg DAILY PO 10/03/20 09:00 I have reviewed the current psychotropics carefully including drug interactions. Risk benefit ratio favors no change other than as noted in my dictated progress note. Diagnosis: Problems: (1) Impulse control disorder, unspecified (2) PTSD (post-traumatic stress disorder) (3) Anxiety disorder, unspecified (4) Dementia, vascular, with depression (5) Dementia, vascular, with delusions (6) Dementia in Alzheimer's disease with depression (7) Dementia in Alzheimer's disease with delusions (8) Dementia of the Alzheimer's type with early onset with behavioral disturbance (9) Major neurocognitive disorder DUANE NINO MD Oct 03, 2020 06:40
[2020-10-03] MEDS: carBAMazepine 200 MG TABLET PO SCH ×2 (08:08→17:13)
[2020-10-03] MEDS: PANTOPRAZOLE 40 MG TABLET. PO SCH (08:09)
[2020-10-03] MEDS: ACETAMINOPHEN 325 MG TABLET PO SCH ×2 (08:09→19:38)
[2020-10-03] MEDS: MULTIVITAMIN with MINERAL TABLET. PO SCH (08:09)
[2020-10-03] MEDS: QUEtiapine 25 MG TABLET. PO SCH ×4 (08:09→19:39)
[2020-10-03] MEDS: ASPIRIN CHEWABLE 81 MG TABLET. PO SCH (08:09)
[2020-10-03] MEDS: FUROSEMIDE 40 MG TABLET PO SCH (08:09)
[2020-10-03] MEDS: POTASSIUM CHLORIDE 20 MEQ TABLET.ER. PO SCH ×2 (08:10→17:12)
--- NOTE | 2020-10-03 10:11 | NUR ---
Faxed physicians notes, nursing note, medication list, labs completed on 10/02/20, chest x-ray results, and medical esthetician notes with documentation on weights to Jacinda Lechuga for review, as requested. Eric is scheduled for a doppler this date. RENE will converse with Dr. Davis about tentative d/c plan. RENE received phone call from Erna, Eric's daughter, who reported that Heidy () has suffered a hairline hip fracture. RENE left message for Heidy to invite to listen in to team meeting which will be held on 10/04/20, awaiting return call.
--- NOTE | 2020-10-03 11:37 | RAD ---
US BILATERAL LOWEREXTREMITY VENOUS DOPPLER History: Reason: bilateral lower limb edema not responding to diuretics / Spl. Instructions: / Histo ry: Comparison: None. Technique: Multiple longitudinal and transverse high resolution real-time images of the venous system of bilateral lower extremity were obtained with color and Doppler sampling. Findings: Patent common femoral, deep femoral, superficial femoral popliteal veins. Degraded evaluation of the calf veins due to subcutaneous edema. No definite thrombus. Bilateral lower extremity subcutaneous edema. Impression: 1. No evidence of deep vein thrombosis. Electronically signed by: Olu Franks DO (10/03/2020 11:34 AM) [id number]
--- NOTE | 2020-10-03 15:10 | NUR ---
1:1 with Eric this afternoon to socialize. Eric walked with RENE to the day room and was engaged in the music activity. He sang Marvel Sathish's songs and clapped his hands energetically. While Eric is confused, he is social and enjoys conversing and interacting with others.
[2020-10-03 15:26] VITALS: BP 103/66
[2020-10-03] MEDS: SERTRALINE 100 MG TABLET. PO SCH (17:13)
--- NOTE | 2020-10-03 17:35 | NUR ---
Nsg Note; Zachary cont to be pleasantly confused with occasional appropriate answers to questions. he can follow short instructions like "take a deep breath". He took his meds crushed in pudding without difficulty. he enjoyed listening to the music this afternoon and even danced and sang along. he likes the company of others, preferring to be in the dayroom or hallway with other people. he briefly held hands with a female patient but did not try anything inappropriate with her. he feeds himself and eats most of his meals
[2020-10-03] MEDS: traZODone 50 MG TABLET. PO PRN (19:38)
[2020-10-03] MEDS: MIRTAZAPINE 15 MG TABLET PO SCH (19:38)
[2020-10-03] MEDS: ATORVASTATIN CALCIUM 10 MG TABLET. PO SCH (19:38)
[2020-10-03] MEDS: PRAZOSIN 1 MG CAPSULE. PO SCH (19:39)
--- NOTE | 2020-10-03 22:05 | PDOC ---
Exam Note: Raman Note: Please also refer to the separate dictated note~for this date of service dictated separately.~Patient seen individually. Discussed the patient with Nursing staff reviewed the chart.~Reviewed interim history and current functioning. Reviewed vital signs,~Labs/ Radiology~and current medications noted below. Continue current treatment with the changes noted in the dictated addendum note Assessment: Vital Signs/I&O: Vital Signs Date Time Temp Pulse Resp B/P (MAP) Pulse Ox O2 Delivery O2 Flow Rate FiO2 10/03/20 19:39 83 97/53 10/03/20 15:26 97.7 16 98 10/03/20 05:37 Room Air I & O 10/02/20 10/02/20 10/03/20 15:00 23:00 07:00 Intake Total 600 ml 360 ml Balance 600 ml 360 ml Current Medications: Meds: Current Medications Medications (Trade) Dose Ordered Sig/Abundio Route PRN Reason Start Time Stop Time Status Last Admin Dose Admin Acetaminophen (Tylenol) 650 mg PRN Q6HRS PRN PO MILD PAIN / TEMP > 100.3'F 09/17/20 15:30 09/21/20 07:53 DC 09/20/20 20:31 Multi-Ingredient Ointment (Analgesic [place]) 1 will PRN QID PRN TP MUSCLE PAIN 09/17/20 15:30 Al Hydroxide/Mg Hydroxide (Mylanta Plus Xs) 15 ml PRN AFTMEALHC PRN PO DYSPEPSIA 09/17/20 15:30 Magnesium Hydroxide (Milk Of Magnesia) 2,400 mg PRN QHS PRN PO 1st choice CONSTIPATION 09/17/20 15:30 09/22/20 22:26 Acetaminophen (Tylenol) 650 mg BID PO 09/17/20 21:00 10/03/20 19:38 Acetaminophen (Tylenol) 650 mg PRN Q6HRS PRN PO MILD PAIN 1-3/ TEMP 09/17/20 16:15 Aspirin (Aspirin Chewable) 81 mg DAILY PO 09/18/20 09:00 10/03/20 08:09 Atorvastatin Calcium (Lipitor) 10 mg QHS PO 09/17/20 21:00 10/03/20 19:38 Bisacodyl (Dulcolax Supp) 10 mg PRN DAILY PRN RC 2nd choice CONSTIPATION 09/17/20 16:15 Diclofenac Sodium (Voltaren) 1 will PRN Q8HRS PRN TP MUSCLE PAIN 09/17/20 16:15 Divalproex Sodium (Depakote Er) 750 mg QHS PO 09/17/20 21:00 09/23/20 18:19 DC 09/22/20 20:42 Lorazepam (Ativan) 0.5 mg PRN BID PRN PO 1ST CHOICE ANXIETY 09/17/20 16:15 09/30/20 20:11 Mirtazapine (Remeron) 15 mg QHS PO 09/17/20 21:00 10/03/20 19:38 Olanzapine (ZyPREXA ZYDIS) 2.5 mg PRN Q2HR PRN PO 2ND CHOICE ANXIETY / AGITATION 09/17/20 16:15 10/01/20 23:41 Oxycodone/ Acetaminophen (Percocet 7.5/ 325) 1 tab PRN Q8HRS PRN PO MOD-SEVERE PAIN 09/17/20 16:15 10/02/20 20:49 Artificial Tears (Artificial Tears) 1 drop PRN Q15MIN PRN OU DRY EYE 09/17/20 16:15 Prazosin HCl (Minipress) 3 mg QHS PO 09/17/20 21:00 10/02/20 20:23 Quetiapine Fumarate (SEROquel) 37.5 mg 0900,1300,1700 PO 09/17/20 17:00 09/22/20 18:34 DC 09/22/20 16:14 Quetiapine Fumarate (SEROquel) 50 mg PRN DAILY PRN PO 3RD CHOICE ANXIETY / AGITATION 09/17/20 16:15 Quetiapine Fumarate (SEROquel) 100 mg QHS PO 09/17/20 21:00 09/22/20 18:34 DC 09/21/20 20:53 Sertraline HCl (Zoloft) 100 mg DAILY@1700 PO 09/17/20 17:00 10/03/20 17:13 Trazodone HCl (Desyrel) 50 mg PRN QHS PRN PO INSOMNIA, MAY REPEAT X1 09/17/20 16:15 10/03/20 19:38 Loperamide HCl (Imodium) 2 mg PRN Q15MIN PRN PO DIARRHEA 09/17/20 16:30 Multivitamins/ Calcium (Thera-M Plus) 1 tab DAILY PO 09/18/20 09:00 10/03/20 08:09 Pantoprazole Sodium (Protonix) 40 mg DAILYAC PO 09/18/20 07:30 10/03/20 08:09 Potassium Chloride (Klor-Con) 10 meq QODAY PO 09/19/20 09:00 09/23/20 11:34 DC 09/21/20 08:08 Quetiapine Fumarate (SEROquel) 75 mg QHS PO 09/22/20 21:00 10/03/20 19:39 Quetiapine Fumarate (SEROquel) 50 mg 0900,1700 PO 09/23/20 09:00 10/03/20 17:13 Quetiapine Fumarate (SEROquel) 37.5 mg 1300 PO 09/23/20 13:00 10/03/20 13:28 Potassium Chloride (Klor-Con) 20 meq 1300 PO 09/23/20 13:00 09/23/20 19:08 DC 09/23/20 12:03 Furosemide (Lasix) 80 mg 1300 PO 09/23/20 13:00 09/23/20 19:08 DC 09/23/20 12:03 Furosemide (Lasix) 80 mg DAILY PO 09/24/20 09:00 10/02/20 17:26 DC 10/02/20 08:24 Potassium Chloride (Klor-Con) 20 meq DAILY PO 09/24/20 09:00 09/30/20 17:27 DC 09/30/20 08:27 Carbamazepine (TEGretol) 100 mg DAILY@0900,1700 PO 09/25/20 20:15 09/29/20 00:02 DC 09/28/20 17:26 Carbamazepine (TEGretol) 100 mg DAILY PO 09/29/20 09:00 10/02/20 16:45 DC 10/01/20 17:14 Carbamazepine (TEGretol) 200 mg DAILYWSUP PO 09/29/20 17:00 10/03/20 17:13 Potassium Chloride (Klor-Con) 20 meq BID PO 09/30/20 18:00 09/30/20 17:31 DC Metolazone (Zaroxolyn) 2.5 mg DAILY PO 10/01/20 09:00 10/02/20 17:26 DC 10/02/20 08:23 Potassium Chloride (Klor-Con) 20 meq BIDWMEALS PO 09/30/20 18:00 10/03/20 17:12 Carbamazepine (TEGretol) 200 mg DAILY PO 10/03/20 09:00 10/03/20 08:08 Furosemide (Lasix) 40 mg DAILY PO 10/03/20 09:00 10/03/20 08:09 Current Medications Medications (Trade) Dose Ordered Sig/Abundio Route PRN Reason Start Time Stop Time Status Last Admin Dose Admin Carbamazepine (TEGretol) 200 mg DAILY PO 10/03/20 09:00 10/03/20 08:08 Furosemide (Lasix) 40 mg DAILY PO 10/03/20 09:00 10/03/20 08:09 I have reviewed the current psychotropics carefully including drug interactions. Risk benefit ratio favors no change other than as noted in my dictated progress note. Diagnosis: Problems: (1) Impulse control disorder, unspecified (2) PTSD (post-traumatic stress disorder) (3) Anxiety disorder, unspecified (4) Dementia, vascular, with depression (5) Dementia, vascular, with delusions (6) Dementia in Alzheimer's disease with depression (7) Dementia in Alzheimer's disease with delusions (8) Dementia of the Alzheimer's type with early onset with behavioral disturbance (9) Major neurocognitive disorder DUANE NINO MD Oct 03, 2020 22:05
--- NOTE | 2020-10-04 04:27 | NUR ---
Pt sitting quietly in a chair in his room when approached. Pt calm, pleasantly confused, and interactive but delusional- pt told staff "I love children. I hope to have some of my own someday". Pt cooperative with assessment and compliant with medications administered crushed in pudding. HS Prazosin held this shift d/t BP low based on medication parameters. No agitation or aggression noted thus far this shift.
[2020-10-04 05:19] VITALS: BP 113/56
[2020-10-04] MEDS: PANTOPRAZOLE 40 MG TABLET. PO SCH (08:27)
[2020-10-04] MEDS: MULTIVITAMIN with MINERAL TABLET. PO SCH (08:27)
[2020-10-04] MEDS: ACETAMINOPHEN 325 MG TABLET PO SCH ×2 (08:27→20:02)
[2020-10-04] MEDS: QUEtiapine 25 MG TABLET. PO SCH ×4 (08:28→20:02)
[2020-10-04] MEDS: carBAMazepine 200 MG TABLET PO SCH ×2 (08:28→17:35)
[2020-10-04] MEDS: FUROSEMIDE 40 MG TABLET PO SCH (08:28)
[2020-10-04] MEDS: POTASSIUM CHLORIDE 20 MEQ TABLET.ER. PO SCH ×2 (08:29→17:35)
[2020-10-04] MEDS: ASPIRIN CHEWABLE 81 MG TABLET. PO SCH (08:29)
--- NOTE | 2020-10-04 11:04 | NUR ---
WEEKLY ACTIVITY THERAPY NOTE Date of Admission: 09/17/20 Date of AT Assessment: 09/20 Precipitating behaviors that initiated intake and admission: Pt continuing his stay for multiple behaviors from the skilled unit stay. Pt is intermittently combative and confused. Goal aimed: increase stimulation Initial Goal:Pt. will participate in at lease five Activity Therapy groups or individual sessions before discharge Weekly progress towards goal: achieved, 09/24-music and patio and leisure would you rather, 09/25 Lazy day:practice relaxation, 09/26-dance and social hour, 09/26-songs and states, 10/02- Patio and music) Group participation level: 1 min, 1 full Weekly highlights: sang to one song on the patio during Thursday morning group, danced and sang Thursday during music social Behaviors observed:urinating on the floor often, pleasantly confused Plan: repeat goal Beneficial adaptations: music, redirection
--- NOTE | 2020-10-04 12:07 | TX PLAN ---
Interdisciplinary Tx Plan Admission Information Sep 17, 2020 at 13:40 Legal Status (on Admission): Voluntary, DPOA DPOA/Guardian Name: Heidy [place]- Contact Other Contact Name: Caryl Other Contact Verified Code Status: DNR Allergies: Coded Allergies: No Known Drug Allergies (Unverified , 08/28/20) Estimated Length of Stay: 14 Diagnoses Primary Diagnosis: Major neurocognitive disorder, vascular alzheimers with delusions BD; Anxiety d/o unspecified; Impulse control d/o Reasons for Admission: Aggressive, Agitated, Combative, Suspicious/paranoid, Poor impulse control Problem in Patient's Words: Per POA, as noted above. Problems Active Problems: Aggressive Agitated Combative Wandering Confused Paranoid Inactive Problems: Medication compliant Averaging 80% of meal intakes Averaging 7 hours of sleep Pt Strengths/Limitations Ability for [place]: Poor Cognitive Functioning/Ability: Poor Communication Skills/Ability: Fair Financial Resources: Fair Insight/Judgement: Poor Intellectual Ability: Fair Physical Health: Fair Social Skills: Fair Stability in Family: Good Verbal Skills: Fair Discharge Criteria Discharge Criteria: Adequate arrangements @DC, Improved behavior, Improved mood/thought Preliminary Discharge Plan Preliminary DC Plan: Memory Care Other Arrangements: [facility] Special Precautions Special Precautions: Agitation/Assault Fall Risk: High Initial D/C Plan Return to [facility] Identified Discharge Needs: Out patient psychiatry if available, restorative therapy program, activites to occupy time, allow adequate time for Eric to process and respond. Currently Utilized Resources Currently Utilized Resources/P: PCP 24 hour memory care Referrals Community Resources: [facility] Identified Problems/Hx/Goals Objectives/Short-Term Goals Short Term Goals: Control abnormal behavior, Dec. Aggression, Dec. Outbursts, Medication Stabilization, Prevent Deterioration Short Term Goals in Patient's: Per POA, for Eric to "be at peace, be able to sleep at night, and have increased intake." Interventions/Frequency Staff Interventions/Frequency&: Nursing to provide routine safety checks, medication administration, and adl support. Psychiatry to see three times weekly. SW to see twice weekly. SW and recreational groups as Eric allows. PT/OT eval and treat as indicated. 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 Social: Eric has enjoyed fishing and hunting. Education: Eric graduated high school and attended some college. Community Follow-up PCP [facility] Community Provider/Family Inpu: Heidy (/POA) and Shauna (daughter) participated in team meeting this date. Tentative d/c date mid next week. Treatment Plan Explained Patient/Tar Worker had this treatment plan explained to him/her as indicated by the signature below and has been given the opportunity to ask questions and make suggestions: Date: Patient/Tar Worker Signature: Status Update Update WEEKLY NOTE/UPDATE: Eric is averaging 905 of meal intakes and 5.5 hours of sleep at night. He has been cooperative with medication administration taking meds crushed in applesauce. Eric is alert with confusion, recently fixated on a hat his brother gave him. He is social and frequently speaks of children, possibly believing his children are still small. Eric has urinated on the floor and other place on the unit this week. Eric has been reduced of diuretics and had a doppler completed yesterday. He has been involved in two group activities with god engagement, particularly responding to country western music. Heidy, , was unable to be reached for team meeting today as she is currently hospitalized with a hairline hip fracture. If eric does ok over the weekend, will proceed with d/c to [facility] on 10/09/20. will update Jacinda at [facility] and coordinate from there. MARYBEL MARQUEZ Oct 04, 2020 12:07
--- NOTE | 2020-10-04 12:22 | NUR ---
RENE was able to reach Heidy, , on her cell phone. Heidy is currently hospitalized for a hairline hip fracture but may be released to home tomorrow. Update provided to Heidy related to Eric's progress and potential d/c on 10/09/20. RENE updated Jacinda, admissions at [facility]. RENE will fax weekend notes, labs, and medication list to Jacinda on 10/08/20. Provided Eric does well over the weekend, will proceed with d/c on 10/09/20.
[2020-10-04 16:06] VITALS: BP 157/79
[2020-10-04] MEDS: SERTRALINE 100 MG TABLET. PO SCH (17:35)
--- NOTE | 2020-10-04 18:32 | NUR ---
Patient has generally been calm, compliant, and pleasantly confused throughout this shift. He inappropriately urinated on the floor multiple times, mostly due to confusion and urgency. Patient was delusional and believed staff members and peers were his family members. Will continue to monitor and report to oncoming shift.
[2020-10-04] MEDS: ATORVASTATIN CALCIUM 10 MG TABLET. PO SCH (20:02)
[2020-10-04] MEDS: PRAZOSIN 1 MG CAPSULE. PO SCH (20:02)
[2020-10-04] MEDS: traZODone 50 MG TABLET. PO PRN (20:02)
[2020-10-04] MEDS: MIRTAZAPINE 15 MG TABLET PO SCH (20:03)
[2020-10-04] MEDS: oxyCODONE/APAP 7.5/325 1 TAB TABLET PO PRN (20:03)
--- NOTE | 2020-10-04 22:12 | PDOC ---
Exam Note: Raman Note: Please also refer to the separate dictated note~for this date of service dictated separately.~Patient seen individually. Discussed the patient with Nursing staff reviewed the chart.~Reviewed interim history and current functioning. Reviewed vital signs,~Labs/ Radiology~and current medications noted below. Continue current treatment with the changes noted in the dictated addendum note Assessment: Vital Signs/I&O: Vital Signs Date Time Temp Pulse Resp B/P (MAP) Pulse Ox O2 Delivery O2 Flow Rate FiO2 10/04/20 20:33 100 10/04/20 20:02 84 143/68 10/04/20 16:06 97.7 20 Room Air I & O 10/03/20 10/03/20 10/04/20 15:00 23:00 07:00 Intake Total 550 ml 370 ml Balance 550 ml 370 ml Current Medications: Meds: Current Medications Medications (Trade) Dose Ordered Sig/Abundio Route PRN Reason Start Time Stop Time Status Last Admin Dose Admin Acetaminophen (Tylenol) 650 mg PRN Q6HRS PRN PO MILD PAIN / TEMP > 100.3'F 09/17/20 15:30 09/21/20 07:53 DC 09/20/20 20:31 Multi-Ingredient Ointment (Analgesic [place]) 1 will PRN QID PRN TP MUSCLE PAIN 09/17/20 15:30 Al Hydroxide/Mg Hydroxide (Mylanta Plus Xs) 15 ml PRN AFTMEALHC PRN PO DYSPEPSIA 09/17/20 15:30 Magnesium Hydroxide (Milk Of Magnesia) 2,400 mg PRN QHS PRN PO 1st choice CONSTIPATION 09/17/20 15:30 09/22/20 22:26 Acetaminophen (Tylenol) 650 mg BID PO 09/17/20 21:00 10/04/20 20:02 Acetaminophen (Tylenol) 650 mg PRN Q6HRS PRN PO MILD PAIN 1-3/ TEMP 09/17/20 16:15 Aspirin (Aspirin Chewable) 81 mg DAILY PO 09/18/20 09:00 10/04/20 08:29 Atorvastatin Calcium (Lipitor) 10 mg QHS PO 09/17/20 21:00 10/04/20 20:02 Bisacodyl (Dulcolax Supp) 10 mg PRN DAILY PRN RC 2nd choice CONSTIPATION 09/17/20 16:15 Diclofenac Sodium (Voltaren) 1 will PRN Q8HRS PRN TP MUSCLE PAIN 09/17/20 16:15 Divalproex Sodium (Depakote Er) 750 mg QHS PO 09/17/20 21:00 09/23/20 18:19 DC 09/22/20 20:42 Lorazepam (Ativan) 0.5 mg PRN BID PRN PO 1ST CHOICE ANXIETY 09/17/20 16:15 09/30/20 20:11 Mirtazapine (Remeron) 15 mg QHS PO 09/17/20 21:00 10/04/20 20:03 Olanzapine (ZyPREXA ZYDIS) 2.5 mg PRN Q2HR PRN PO 2ND CHOICE ANXIETY / AGITATION 09/17/20 16:15 10/01/20 23:41 Oxycodone/ Acetaminophen (Percocet 7.5/ 325) 1 tab PRN Q8HRS PRN PO MOD-SEVERE PAIN 09/17/20 16:15 10/04/20 20:03 Artificial Tears (Artificial Tears) 1 drop PRN Q15MIN PRN OU DRY EYE 09/17/20 16:15 Prazosin HCl (Minipress) 3 mg QHS PO 09/17/20 21:00 10/04/20 20:02 Quetiapine Fumarate (SEROquel) 37.5 mg 0900,1300,1700 PO 09/17/20 17:00 09/22/20 18:34 DC 09/22/20 16:14 Quetiapine Fumarate (SEROquel) 50 mg PRN DAILY PRN PO 3RD CHOICE ANXIETY / AGITATION 09/17/20 16:15 Quetiapine Fumarate (SEROquel) 100 mg QHS PO 09/17/20 21:00 09/22/20 18:34 DC 09/21/20 20:53 Sertraline HCl (Zoloft) 100 mg DAILY@1700 PO 09/17/20 17:00 10/04/20 17:35 Trazodone HCl (Desyrel) 50 mg PRN QHS PRN PO INSOMNIA, MAY REPEAT X1 09/17/20 16:15 10/04/20 20:02 Loperamide HCl (Imodium) 2 mg PRN Q15MIN PRN PO DIARRHEA 09/17/20 16:30 Multivitamins/ Calcium (Thera-M Plus) 1 tab DAILY PO 09/18/20 09:00 10/04/20 08:27 Pantoprazole Sodium (Protonix) 40 mg DAILYAC PO 09/18/20 07:30 10/04/20 08:27 Potassium Chloride (Klor-Con) 10 meq QODAY PO 09/19/20 09:00 09/23/20 11:34 DC 09/21/20 08:08 Quetiapine Fumarate (SEROquel) 75 mg QHS PO 09/22/20 21:00 10/04/20 20:02 Quetiapine Fumarate (SEROquel) 50 mg 0900,1700 PO 09/23/20 09:00 10/04/20 17:36 Quetiapine Fumarate (SEROquel) 37.5 mg 1300 PO 09/23/20 13:00 10/04/20 12:23 Potassium Chloride (Klor-Con) 20 meq 1300 PO 09/23/20 13:00 09/23/20 19:08 DC 09/23/20 12:03 Furosemide (Lasix) 80 mg 1300 PO 09/23/20 13:00 09/23/20 19:08 DC 09/23/20 12:03 Furosemide (Lasix) 80 mg DAILY PO 09/24/20 09:00 10/02/20 17:26 DC 10/02/20 08:24 Potassium Chloride (Klor-Con) 20 meq DAILY PO 09/24/20 09:00 09/30/20 17:27 DC 09/30/20 08:27 Carbamazepine (TEGretol) 100 mg DAILY@0900,1700 PO 09/25/20 20:15 09/29/20 00:02 DC 09/28/20 17:26 Carbamazepine (TEGretol) 100 mg DAILY PO 09/29/20 09:00 10/02/20 16:45 DC 10/01/20 17:14 Carbamazepine (TEGretol) 200 mg DAILYWSUP PO 09/29/20 17:00 10/04/20 17:35 Potassium Chloride (Klor-Con) 20 meq BID PO 09/30/20 18:00 09/30/20 17:31 DC Metolazone (Zaroxolyn) 2.5 mg DAILY PO 10/01/20 09:00 10/02/20 17:26 DC 10/02/20 08:23 Potassium Chloride (Klor-Con) 20 meq BIDWMEALS PO 09/30/20 18:00 10/04/20 17:35 Carbamazepine (TEGretol) 200 mg DAILY PO 10/03/20 09:00 10/04/20 08:28 Furosemide (Lasix) 40 mg DAILY PO 10/03/20 09:00 10/04/20 08:28 I have reviewed the current psychotropics carefully including drug interactions. Risk benefit ratio favors no change other than as noted in my dictated progress note. Diagnosis: Problems: (1) Impulse control disorder, unspecified (2) PTSD (post-traumatic stress disorder) (3) Anxiety disorder, unspecified (4) Dementia, vascular, with depression (5) Dementia, vascular, with delusions (6) Dementia in Alzheimer's disease with depression (7) Dementia in Alzheimer's disease with delusions (8) Dementia of the Alzheimer's type with early onset with behavioral disturbance (9) Major neurocognitive disorder DUANE NINO MD Oct 04, 2020 22:12
--- NOTE | 2020-10-04 22:51 | NUR ---
Pt sitting quietly in the hallway when approached. Pt slightly irritable and tense initially during encounter, however upon further assessment pt was noted to be having pain in his back and R leg. PRN Oxycodone administered @2002. Pt cooperative with assessment and compliant with medications administered crushed in pudding followed with honey thickened cranberry juice. No agitation or aggression noted thus far this shift. Pt currently resting comfortably in bed.
[2020-10-05 06:05] VITALS: BP 106/63
--- NOTE | 2020-10-05 06:43 | PDOC ---
Exam Note: Raman Note: This note is a late entry for 10/03/2020 covers elements not covered in my initial note. Subjective: The patient was seen face to face in the evening of 10/03/2020 with Bere MONTEMAYOR discussed and reviewed the chart. The patient slept 6-1/2 hours previous night. He takes medications crushed. He has been spending time in the day room. He enjoys the music group. Review of Systems: No CV, , pulmonary, eye, ENT system symptoms on review. Reliability poor. Mental Status Exam: The patient is oriented to himself. Insight and judgment, recent and remote memory, attention and concentration, fund of knowledge is poor consistent with his diagnoses. Laboratory Data: Reviewed. Impression: Major neurocognitive disorder Alzheimer vascular with delusion, depression, and behavioral disturbance. Anxiety disorder unspecified. Impulse control disorder unspecified. PTSD. Plan: Continue current psychotropics unchanged. Assessment: Vital Signs/I&O: Vital Signs Date Time Temp Pulse Resp B/P (MAP) Pulse Ox O2 Delivery O2 Flow Rate FiO2 10/05/20 06:05 97.3 88 18 106/63 (77) 99 10/04/20 16:06 Room Air I & O 0 10/04/20 10/04/20 10/05/20 15:00 23:00 07:00 Intake Total 500 ml 470 ml Balance 500 ml 470 ml Current Medications: Meds: Current Medications Medications (Trade) Dose Ordered Sig/Abundio Route PRN Reason Start Time Stop Time Status Last Admin Dose Admin Acetaminophen (Tylenol) 650 mg PRN Q6HRS PRN PO MILD PAIN / TEMP > 100.3'F 09/17/20 15:30 09/21/20 07:53 DC 09/20/20 20:31 Multi-Ingredient Ointment (Analgesic [place]) 1 will PRN QID PRN TP MUSCLE PAIN 09/17/20 15:30 Al Hydroxide/Mg Hydroxide (Mylanta Plus Xs) 15 ml PRN AFTMEALHC PRN PO DYSPEPSIA 09/17/20 15:30 Magnesium Hydroxide (Milk Of Magnesia) 2,400 mg PRN QHS PRN PO 1st choice CONSTIPATION 09/17/20 15:30 09/22/20 22:26 Acetaminophen (Tylenol) 650 mg BID PO 09/17/20 21:00 10/04/20 20:02 Acetaminophen (Tylenol) 650 mg PRN Q6HRS PRN PO MILD PAIN 1-3/ TEMP 09/17/20 16:15 Aspirin (Aspirin Chewable) 81 mg DAILY PO 09/18/20 09:00 10/04/20 08:29 Atorvastatin Calcium (Lipitor) 10 mg QHS PO 09/17/20 21:00 10/04/20 20:02 Bisacodyl (Dulcolax Supp) 10 mg PRN DAILY PRN RC 2nd choice CONSTIPATION 09/17/20 16:15 Diclofenac Sodium (Voltaren) 1 will PRN Q8HRS PRN TP MUSCLE PAIN 09/17/20 16:15 Divalproex Sodium (Depakote Er) 750 mg QHS PO 09/17/20 21:00 09/23/20 18:19 DC 09/22/20 20:42 Lorazepam (Ativan) 0.5 mg PRN BID PRN PO 1ST CHOICE ANXIETY 09/17/20 16:15 09/30/20 20:11 Mirtazapine (Remeron) 15 mg QHS PO 09/17/20 21:00 10/04/20 20:03 Olanzapine (ZyPREXA ZYDIS) 2.5 mg PRN Q2HR PRN PO 2ND CHOICE ANXIETY / AGITATION 09/17/20 16:15 10/01/20 23:41 Oxycodone/ Acetaminophen (Percocet 7.5/ 325) 1 tab PRN Q8HRS PRN PO MOD-SEVERE PAIN 09/17/20 16:15 10/04/20 20:03 Artificial Tears (Artificial Tears) 1 drop PRN Q15MIN PRN OU DRY EYE 09/17/20 16:15 Prazosin HCl (Minipress) 3 mg QHS PO 09/17/20 21:00 10/04/20 20:02 Quetiapine Fumarate (SEROquel) 37.5 mg 0900,1300,1700 PO 09/17/20 17:00 09/22/20 18:34 DC 09/22/20 16:14 Quetiapine Fumarate (SEROquel) 50 mg PRN DAILY PRN PO 3RD CHOICE ANXIETY / AGITATION 09/17/20 16:15 Quetiapine Fumarate (SEROquel) 100 mg QHS PO 09/17/20 21:00 09/22/20 18:34 DC 09/21/20 20:53 Sertraline HCl (Zoloft) 100 mg DAILY@1700 PO 09/17/20 17:00 10/04/20 17:35 Trazodone HCl (Desyrel) 50 mg PRN QHS PRN PO INSOMNIA, MAY REPEAT X1 09/17/20 16:15 10/04/20 20:02 Loperamide HCl (Imodium) 2 mg PRN Q15MIN PRN PO DIARRHEA 09/17/20 16:30 Multivitamins/ Calcium (Thera-M Plus) 1 tab DAILY PO 09/18/20 09:00 10/04/20 08:27 Pantoprazole Sodium (Protonix) 40 mg DAILYAC PO 09/18/20 07:30 10/04/20 08:27 Potassium Chloride (Klor-Con) 10 meq QODAY PO 09/19/20 09:00 09/23/20 11:34 DC 09/21/20 08:08 Quetiapine Fumarate (SEROquel) 75 mg QHS PO 09/22/20 21:00 10/04/20 20:02 Quetiapine Fumarate (SEROquel) 50 mg 0900,1700 PO 09/23/20 09:00 10/04/20 17:36 Quetiapine Fumarate (SEROquel) 37.5 mg 1300 PO 09/23/20 13:00 10/04/20 12:23 Potassium Chloride (Klor-Con) 20 meq 1300 PO 09/23/20 13:00 09/23/20 19:08 DC 09/23/20 12:03 Furosemide (Lasix) 80 mg 1300 PO 09/23/20 13:00 09/23/20 19:08 DC 09/23/20 12:03 Furosemide (Lasix) 80 mg DAILY PO 09/24/20 09:00 10/02/20 17:26 DC 10/02/20 08:24 Potassium Chloride (Klor-Con) 20 meq DAILY PO 09/24/20 09:00 09/30/20 17:27 DC 09/30/20 08:27 Carbamazepine (TEGretol) 100 mg DAILY@0900,1700 PO 09/25/20 20:15 09/29/20 00:02 DC 09/28/20 17:26 Carbamazepine (TEGretol) 100 mg DAILY PO 09/29/20 09:00 10/02/20 16:45 DC 10/01/20 17:14 Carbamazepine (TEGretol) 200 mg DAILYWSUP PO 09/29/20 17:00 10/04/20 17:35 Potassium Chloride (Klor-Con) 20 meq BID PO 09/30/20 18:00 09/30/20 17:31 DC Metolazone (Zaroxolyn) 2.5 mg DAILY PO 10/01/20 09:00 10/02/20 17:26 DC 10/02/20 08:23 Potassium Chloride (Klor-Con) 20 meq BIDWMEALS PO 09/30/20 18:00 10/04/20 17:35 Carbamazepine (TEGretol) 200 mg DAILY PO 10/03/20 09:00 10/04/20 08:28 Furosemide (Lasix) 40 mg DAILY PO 10/03/20 09:00 10/04/20 08:28 I have reviewed the current psychotropics carefully including drug interactions. Risk benefit ratio favors no change other than as noted in my dictated progress note. Diagnosis: Problems: (1) Impulse control disorder, unspecified (2) PTSD (post-traumatic stress disorder) (3) Anxiety disorder, unspecified (4) Dementia, vascular, with depression (5) Dementia, vascular, with delusions (6) Dementia in Alzheimer's disease with depression (7) Dementia in Alzheimer's disease with delusions (8) Dementia of the Alzheimer's type with early onset with behavioral disturbance (9) Major neurocognitive disorder DUANE NINO MD Oct 05, 2020 06:43
--- NOTE | 2020-10-05 06:57 | PDOC ---
Exam Note: Raman Note: This note is a late entry for 10/04/2020 covers elements not covered in my initial note. Subjective: The patient was reviewed at treatment team meeting individually in the morning on 10/04/2020 with Viola Dozier, Chioma Coburn (social worker school), Maira, activity therapy and Scott MONTEMAYOR, discussed and reviewed the chart. The patient slept 5-1/2 hours previous night. Patient was also seen individually in the evening in his room. His Heidy was supposed to have attended the treatment team meeting but was not available. Reportedly, the had a fall herself with fracture of the lower extremity. Daughter was unavailable. He has not been agitated or aggressive. His blood pressure was low last evening. Prazosin was held. He has attended 2 groups in the past week, appropriate and dancing in groups and specifically to [employer]. He has done well in the evening. He responded positively when I thanked him for service for being in the [employer] and he responded thats okay. Review of Systems: No CV, , pulmonary, eye, ENT system symptoms on review. Reliability poor. Mental Status Exam: The patient is oriented to himself. Insight and judgment, recent and remote memory, attention and concentration, fund of knowledge is poor consistent with his diagnoses. Laboratory Data: Reviewed. Impression: Major neurocognitive disorder Alzheimer vascular with delusion, depression, and behavioral disturbance. Anxiety disorder unspecified. Impulse control disorder unspecified. PTSD. Plan: Continue current psychotropics unchanged. Assessment: Vital Signs/I&O: Vital Signs Date Time Temp Pulse Resp B/P (MAP) Pulse Ox O2 Delivery O2 Flow Rate FiO2 10/05/20 06:05 97.3 88 18 106/63 (77) 99 10/04/20 16:06 Room Air I & O 10/04/20 10/04/20 10/05/20 14:59 22:59 06:59 Intake Total 500 ml 470 ml Balance 500 ml 470 ml Current Medications: Meds: Current Medications Medications (Trade) Dose Ordered Sig/Abundio Route PRN Reason Start Time Stop Time Status Last Admin Dose Admin Acetaminophen (Tylenol) 650 mg PRN Q6HRS PRN PO MILD PAIN / TEMP > 100.3'F 09/17/20 15:30 09/21/20 07:53 DC 09/20/20 20:31 Multi-Ingredient Ointment (Analgesic [place]) 1 will PRN QID PRN TP MUSCLE PAIN 09/17/20 15:30 Al Hydroxide/Mg Hydroxide (Mylanta Plus Xs) 15 ml PRN AFTMEALHC PRN PO DYSPEPSIA 09/17/20 15:30 Magnesium Hydroxide (Milk Of Magnesia) 2,400 mg PRN QHS PRN PO 1st choice CONSTIPATION 09/17/20 15:30 09/22/20 22:26 Acetaminophen (Tylenol) 650 mg BID PO 09/17/20 21:00 10/04/20 20:02 Acetaminophen (Tylenol) 650 mg PRN Q6HRS PRN PO MILD PAIN 1-3/ TEMP 09/17/20 16:15 Aspirin (Aspirin Chewable) 81 mg DAILY PO 09/18/20 09:00 10/04/20 08:29 Atorvastatin Calcium (Lipitor) 10 mg QHS PO 09/17/20 21:00 10/04/20 20:02 Bisacodyl (Dulcolax Supp) 10 mg PRN DAILY PRN RC 2nd choice CONSTIPATION 09/17/20 16:15 Diclofenac Sodium (Voltaren) 1 will PRN Q8HRS PRN TP MUSCLE PAIN 09/17/20 16:15 Divalproex Sodium (Depakote Er) 750 mg QHS PO 09/17/20 21:00 09/23/20 18:19 DC 09/22/20 20:42 Lorazepam (Ativan) 0.5 mg PRN BID PRN PO 1ST CHOICE ANXIETY 09/17/20 16:15 09/30/20 20:11 Mirtazapine (Remeron) 15 mg QHS PO 09/17/20 21:00 10/04/20 20:03 Olanzapine (ZyPREXA ZYDIS) 2.5 mg PRN Q2HR PRN PO 2ND CHOICE ANXIETY / AGITATION 09/17/20 16:15 10/01/20 23:41 Oxycodone/ Acetaminophen (Percocet 7.5/ 325) 1 tab PRN Q8HRS PRN PO MOD-SEVERE PAIN 09/17/20 16:15 10/04/20 20:03 Artificial Tears (Artificial Tears) 1 drop PRN Q15MIN PRN OU DRY EYE 09/17/20 16:15 Prazosin HCl (Minipress) 3 mg QHS PO 09/17/20 21:00 10/04/20 20:02 Quetiapine Fumarate (SEROquel) 37.5 mg 0900,1300,1700 PO 09/17/20 17:00 09/22/20 18:34 DC 09/22/20 16:14 Quetiapine Fumarate (SEROquel) 50 mg PRN DAILY PRN PO 3RD CHOICE ANXIETY / AGITATION 09/17/20 16:15 Quetiapine Fumarate (SEROquel) 100 mg QHS PO 09/17/20 21:00 09/22/20 18:34 DC 09/21/20 20:53 Sertraline HCl (Zoloft) 100 mg DAILY@1700 PO 09/17/20 17:00 10/04/20 17:35 Trazodone HCl (Desyrel) 50 mg PRN QHS PRN PO INSOMNIA, MAY REPEAT X1 09/17/20 16:15 10/04/20 20:02 Loperamide HCl (Imodium) 2 mg PRN Q15MIN PRN PO DIARRHEA 09/17/20 16:30 Multivitamins/ Calcium (Thera-M Plus) 1 tab DAILY PO 09/18/20 09:00 10/04/20 08:27 Pantoprazole Sodium (Protonix) 40 mg DAILYAC PO 09/18/20 07:30 10/04/20 08:27 Potassium Chloride (Klor-Con) 10 meq QODAY PO 09/19/20 09:00 09/23/20 11:34 DC 09/21/20 08:08 Quetiapine Fumarate (SEROquel) 75 mg QHS PO 09/22/20 21:00 10/04/20 20:02 Quetiapine Fumarate (SEROquel) 50 mg 0900,1700 PO 09/23/20 09:00 10/04/20 17:36 Quetiapine Fumarate (SEROquel) 37.5 mg 1300 PO 09/23/20 13:00 10/04/20 12:23 Potassium Chloride (Klor-Con) 20 meq 1300 PO 09/23/20 13:00 09/23/20 19:08 DC 09/23/20 12:03 Furosemide (Lasix) 80 mg 1300 PO 09/23/20 13:00 09/23/20 19:08 DC 09/23/20 12:03 Furosemide (Lasix) 80 mg DAILY PO 09/24/20 09:00 10/02/20 17:26 DC 10/02/20 08:24 Potassium Chloride (Klor-Con) 20 meq DAILY PO 09/24/20 09:00 09/30/20 17:27 DC 09/30/20 08:27 Carbamazepine (TEGretol) 100 mg DAILY@0900,1700 PO 09/25/20 20:15 09/29/20 00:02 DC 09/28/20 17:26 Carbamazepine (TEGretol) 100 mg DAILY PO 09/29/20 09:00 10/02/20 16:45 DC 10/01/20 17:14 Carbamazepine (TEGretol) 200 mg DAILYWSUP PO 09/29/20 17:00 10/04/20 17:35 Potassium Chloride (Klor-Con) 20 meq BID PO 09/30/20 18:00 09/30/20 17:31 DC Metolazone (Zaroxolyn) 2.5 mg DAILY PO 10/01/20 09:00 10/02/20 17:26 DC 10/02/20 08:23 Potassium Chloride (Klor-Con) 20 meq BIDWMEALS PO 09/30/20 18:00 10/04/20 17:35 Carbamazepine (TEGretol) 200 mg DAILY PO 10/03/20 09:00 10/04/20 08:28 Furosemide (Lasix) 40 mg DAILY PO 10/03/20 09:00 10/04/20 08:28 I have reviewed the current psychotropics carefully including drug interactions. Risk benefit ratio favors no change other than as noted in my dictated progress note. Diagnosis: Problems: (1) Impulse control disorder, unspecified (2) PTSD (post-traumatic stress disorder) (3) Anxiety disorder, unspecified (4) Dementia, vascular, with depression (5) Dementia, vascular, with delusions (6) Dementia in Alzheimer's disease with depression (7) Dementia in Alzheimer's disease with delusions (8) Dementia of the Alzheimer's type with early onset with behavioral disturbance (9) Major neurocognitive disorder DUANE NINO MD Oct 05, 2020 06:57
[2020-10-05] MEDS: ASPIRIN CHEWABLE 81 MG TABLET. PO SCH (08:27)
[2020-10-05] MEDS: POTASSIUM CHLORIDE 20 MEQ TABLET.ER. PO SCH ×2 (08:27→17:14)
[2020-10-05] MEDS: MULTIVITAMIN with MINERAL TABLET. PO SCH (08:28)
[2020-10-05] MEDS: PANTOPRAZOLE 40 MG TABLET. PO SCH (08:28)
[2020-10-05] MEDS: carBAMazepine 200 MG TABLET PO SCH ×2 (08:28→17:14)
[2020-10-05] MEDS: ACETAMINOPHEN 325 MG TABLET PO SCH ×2 (08:28→20:16)
[2020-10-05] MEDS: QUEtiapine 25 MG TABLET. PO SCH ×4 (08:28→20:17)
[2020-10-05] MEDS: FUROSEMIDE 40 MG TABLET PO SCH (08:29)
[2020-10-05 15:41] VITALS: BP 114/74
[2020-10-05] MEDS: SERTRALINE 100 MG TABLET. PO SCH (17:14)
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
[2020-10-05] MEDS: ATORVASTATIN CALCIUM 10 MG TABLET. PO SCH (20:17)
[2020-10-05] MEDS: MIRTAZAPINE 15 MG TABLET PO SCH (20:17)
[2020-10-05] MEDS: PRAZOSIN 1 MG CAPSULE. PO SCH (20:17)
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
--- NOTE | 2020-10-05 21:59 | PDOC ---
Exam Note: Raman Note: Please also refer to the separate dictated note~for this date of service dictated separately.~Patient seen individually. Discussed the patient with Nursing staff reviewed the chart.~Reviewed interim history and current functioning. Reviewed vital signs,~Labs/ Radiology~and current medications noted below. Continue current treatment with the changes noted in the dictated addendum note Assessment: Vital Signs/I&O: Vital Signs Date Time Temp Pulse Resp B/P (MAP) Pulse Ox O2 Delivery O2 Flow Rate FiO2 10/05/20 20:17 77 114/74 10/05/20 15:41 97.7 18 98 10/04/20 16:06 Room Air I & O 10/04/20 10/04/20 10/05/20 15:00 23:00 07:00 Intake Total 500 ml 470 ml Balance 500 ml 470 ml Current Medications: Meds: Current Medications Medications (Trade) Dose Ordered Sig/Abundio Route PRN Reason Start Time Stop Time Status Last Admin Dose Admin Acetaminophen (Tylenol) 650 mg PRN Q6HRS PRN PO MILD PAIN / TEMP > 100.3'F 09/17/20 15:30 09/21/20 07:53 DC 09/20/20 20:31 Multi-Ingredient Ointment (Analgesic [place]) 1 will PRN QID PRN TP MUSCLE PAIN 09/17/20 15:30 Al Hydroxide/Mg Hydroxide (Mylanta Plus Xs) 15 ml PRN AFTMEALHC PRN PO DYSPEPSIA 09/17/20 15:30 Magnesium Hydroxide (Milk Of Magnesia) 2,400 mg PRN QHS PRN PO 1st choice CONSTIPATION 09/17/20 15:30 09/22/20 22:26 Acetaminophen (Tylenol) 650 mg BID PO 09/17/20 21:00 10/05/20 20:16 Acetaminophen (Tylenol) 650 mg PRN Q6HRS PRN PO MILD PAIN 1-3/ TEMP 09/17/20 16:15 Aspirin (Aspirin Chewable) 81 mg DAILY PO 09/18/20 09:00 10/05/20 08:27 Atorvastatin Calcium (Lipitor) 10 mg QHS PO 09/17/20 21:00 10/05/20 20:17 Bisacodyl (Dulcolax Supp) 10 mg PRN DAILY PRN RC 2nd choice CONSTIPATION 09/17/20 16:15 Diclofenac Sodium (Voltaren) 1 will PRN Q8HRS PRN TP MUSCLE PAIN 09/17/20 16:15 Divalproex Sodium (Depakote Er) 750 mg QHS PO 09/17/20 21:00 09/23/20 18:19 DC 09/22/20 20:42 Lorazepam (Ativan) 0.5 mg PRN BID PRN PO 1ST CHOICE ANXIETY 09/17/20 16:15 09/30/20 20:11 Mirtazapine (Remeron) 15 mg QHS PO 09/17/20 21:00 10/05/20 20:17 Olanzapine (ZyPREXA ZYDIS) 2.5 mg PRN Q2HR PRN PO 2ND CHOICE ANXIETY / AGITATION 09/17/20 16:15 10/05/20 18:00 Oxycodone/ Acetaminophen (Percocet 7.5/ 325) 1 tab PRN Q8HRS PRN PO MOD-SEVERE PAIN 09/17/20 16:15 10/04/20 20:03 Artificial Tears (Artificial Tears) 1 drop PRN Q15MIN PRN OU DRY EYE 09/17/20 16:15 Prazosin HCl (Minipress) 3 mg QHS PO 09/17/20 21:00 10/05/20 20:17 Quetiapine Fumarate (SEROquel) 37.5 mg 0900,1300,1700 PO 09/17/20 17:00 09/22/20 18:34 DC 09/22/20 16:14 Quetiapine Fumarate (SEROquel) 50 mg PRN DAILY PRN PO 3RD CHOICE ANXIETY / AGITATION 09/17/20 16:15 Quetiapine Fumarate (SEROquel) 100 mg QHS PO 09/17/20 21:00 09/22/20 18:34 DC 09/21/20 20:53 Sertraline HCl (Zoloft) 100 mg DAILY@1700 PO 09/17/20 17:00 10/05/20 17:14 Trazodone HCl (Desyrel) 50 mg PRN QHS PRN PO INSOMNIA, MAY REPEAT X1 09/17/20 16:15 10/04/20 20:02 Loperamide HCl (Imodium) 2 mg PRN Q15MIN PRN PO DIARRHEA 09/17/20 16:30 Multivitamins/ Calcium (Thera-M Plus) 1 tab DAILY PO 09/18/20 09:00 10/05/20 08:28 Pantoprazole Sodium (Protonix) 40 mg DAILYAC PO 09/18/20 07:30 10/05/20 08:28 Potassium Chloride (Klor-Con) 10 meq QODAY PO 09/19/20 09:00 09/23/20 11:34 DC 09/21/20 08:08 Quetiapine Fumarate (SEROquel) 75 mg QHS PO 09/22/20 21:00 10/05/20 20:17 Quetiapine Fumarate (SEROquel) 50 mg 0900,1700 PO 09/23/20 09:00 10/05/20 17:14 Quetiapine Fumarate (SEROquel) 37.5 mg 1300 PO 09/23/20 13:00 10/05/20 12:51 Potassium Chloride (Klor-Con) 20 meq 1300 PO 09/23/20 13:00 09/23/20 19:08 DC 09/23/20 12:03 Furosemide (Lasix) 80 mg 1300 PO 09/23/20 13:00 09/23/20 19:08 DC 09/23/20 12:03 Furosemide (Lasix) 80 mg DAILY PO 09/24/20 09:00 10/02/20 17:26 DC 10/02/20 08:24 Potassium Chloride (Klor-Con) 20 meq DAILY PO 09/24/20 09:00 09/30/20 17:27 DC 09/30/20 08:27 Carbamazepine (TEGretol) 100 mg DAILY@0900,1700 PO 09/25/20 20:15 09/29/20 00:02 DC 09/28/20 17:26 Carbamazepine (TEGretol) 100 mg DAILY PO 09/29/20 09:00 10/02/20 16:45 DC 10/01/20 17:14 Carbamazepine (TEGretol) 200 mg DAILYWSUP PO 09/29/20 17:00 10/05/20 17:14 Potassium Chloride (Klor-Con) 20 meq BID PO 09/30/20 18:00 09/30/20 17:31 DC Metolazone (Zaroxolyn) 2.5 mg DAILY PO 10/01/20 09:00 10/02/20 17:26 DC 10/02/20 08:23 Potassium Chloride (Klor-Con) 20 meq BIDWMEALS PO 09/30/20 18:00 10/05/20 17:14 Carbamazepine (TEGretol) 200 mg DAILY PO 10/03/20 09:00 10/05/20 08:28 Furosemide (Lasix) 40 mg DAILY PO 10/03/20 09:00 10/05/20 08:29 I have reviewed the current psychotropics carefully including drug interactions. Risk benefit ratio favors no change other than as noted in my dictated progress note. Diagnosis: Problems: (1) Impulse control disorder, unspecified (2) PTSD (post-traumatic stress disorder) (3) Anxiety disorder, unspecified (4) Dementia, vascular, with depression (5) Dementia, vascular, with delusions (6) Dementia in Alzheimer's disease with depression (7) Dementia in Alzheimer's disease with delusions (8) Dementia of the Alzheimer's type with early onset with behavioral disturbance (9) Major neurocognitive disorder DUANE NINO MD Oct 05, 2020 21:59
[2020-10-05] MEDS: traZODone 50 MG TABLET. PO PRN (22:49)
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
[2020-10-06 05:26] VITALS: BP 110/60
[2020-10-06 06:51] LABS: BASO # 0.1 x10^3/uL (0.0-0.2); BASO % 1 % (0-3); EOS # 0.6 x10^3/uL (0.0-0.7); EOS % 12 % (0-3); HEMOGLOBIN 9.9 g/dL (13.0-17.5); LYMPH % 20 % (24-48); MEAN CORPUSCULAR HEMOGLOBIN 28 pg (25-35); MEAN CORPUSCULAR HGB CONC 32 g/dL (31-37); MEAN CORPUSCULAR VOLUME 88 fL (79-100); MONO # 0.6 x10^3/uL (0.0-1.1); MONO % 11 % (0-9); NEUT # 2.9 x10^3uL (1.8-7.7); NEUT % 56 % (31-73); PLATELET COUNT 197 x10^3/uL (140-400); RED BLOOD COUNT 3.53 x10^6/uL (4.30-5.70); RED CELL DISTRIBUTION WIDTH 15.9 % (11.5-14.5); WHITE BLOOD COUNT 5.2 x10^3/uL (4.0-11.0)
[2020-10-06 06:59] LABS: ALBUMIN 2.8 g/dL (3.4-5.0); ALBUMIN/GLOBULIN RATIO 0.8 (1.0-1.7); CREATININE 1.1 mg/dL (0.7-1.3); GFR 64.9; POTASSIUM 4.1 mmol/L (3.5-5.1); TOTAL BILIRUBIN 0.2 mg/dL (0.2-1.0); TOTAL PROTEIN 6.5 g/dL (6.4-8.2)
[2020-10-06] MEDS: ASPIRIN CHEWABLE 81 MG TABLET. PO SCH (08:06)
[2020-10-06] MEDS: POTASSIUM CHLORIDE 20 MEQ TABLET.ER. PO SCH ×2 (08:06→17:24)
[2020-10-06] MEDS: carBAMazepine 200 MG TABLET PO SCH ×2 (08:07→17:24)
[2020-10-06] MEDS: FUROSEMIDE 40 MG TABLET PO SCH (08:07)
[2020-10-06] MEDS: PANTOPRAZOLE 40 MG TABLET. PO SCH (08:07)
[2020-10-06] MEDS: ACETAMINOPHEN 325 MG TABLET PO SCH ×2 (08:07→20:21)
[2020-10-06] MEDS: QUEtiapine 25 MG TABLET. PO SCH ×4 (08:08→20:21)
[2020-10-06] MEDS: MULTIVITAMIN with MINERAL TABLET. PO SCH (08:08)
--- NOTE | 2020-10-06 15:05 | NUR ---
Nurse Note Patient disorganized, confused, hallucinating at times about the little girls. Complaint with taking medication . Patient is on a nectar liquids. Up for all meals, ambulating in hallway at times.
[2020-10-06 15:47] VITALS: BP 135/68
[2020-10-06] MEDS: SERTRALINE 100 MG TABLET. PO SCH (17:24)
[2020-10-06] MEDS: PRAZOSIN 1 MG CAPSULE. PO SCH (20:20)
[2020-10-06] MEDS: traZODone 50 MG TABLET. PO PRN ×2 (20:21→23:49)
[2020-10-06] MEDS: MIRTAZAPINE 15 MG TABLET PO SCH (20:21)
[2020-10-06] MEDS: ATORVASTATIN CALCIUM 10 MG TABLET. PO SCH (20:21)
--- NOTE | 2020-10-06 21:56 | PDOC ---
Exam Note: Raman Note: Please also refer to the separate dictated note~for this date of service dictated separately.~Patient seen individually. Discussed the patient with Nursing staff reviewed the chart.~Reviewed interim history and current functioning. Reviewed vital signs,~Labs/ Radiology~and current medications noted below. Continue current treatment with the changes noted in the dictated addendum note Assessment: Vital Signs/I&O: Vital Signs Date Time Temp Pulse Resp B/P (MAP) Pulse Ox O2 Delivery O2 Flow Rate FiO2 10/06/20 20:20 91 135/68 10/06/20 15:47 97.4 18 99 10/04/20 16:06 Room Air I & O 10/05/20 10/05/20 10/06/20 15:00 23:00 07:00 Intake Total 680 ml 540 ml Balance 680 ml 540 ml Labs: Laboratory Tests Test 10/06/20 06:32 White Blood Count 5.2 x10^3/uL (4.0-11.0) Red Blood Count 3.53 x10^6/uL (4.30-5.70) L Hemoglobin 9.9 g/dL (13.0-17.5) L Hematocrit 31.0 % (39.0-53.0) L Mean Corpuscular Volume 88 fL (79-100) Mean Corpuscular Hemoglobin 28 pg (25-35) Mean Corpuscular Hemoglobin Concent 32 g/dL (31-37) Red Cell Distribution Width 15.9 % (11.5-14.5) H Platelet Count 197 x10^3/uL (140-400) Neutrophils (%) (Auto) 56 % (31-73) Lymphocytes (%) (Auto) 20 % (24-48) L Monocytes (%) (Auto) 11 % (0-9) H Eosinophils (%) (Auto) 12 % (0-3) H Basophils (%) (Auto) 1 % (0-3) Neutrophils # (Auto) 2.9 x10^3uL (1.8-7.7) Lymphocytes # (Auto) 1.0 x10^3/uL (1.0-4.8) Monocytes # (Auto) 0.6 x10^3/uL (0.0-1.1) Eosinophils # (Auto) 0.6 x10^3/uL (0.0-0.7) Basophils # (Auto) 0.1 x10^3/uL (0.0-0.2) Sodium Level 146 mmol/L (136-145) H Potassium Level 4.1 mmol/L (3.5-5.1) Chloride Level 108 mmol/L (98-107) H Carbon Dioxide Level 34 mmol/L (21-32) H Anion Gap 4 (6-14) L Blood Urea Nitrogen 33 mg/dL (8-26) H Creatinine 1.1 mg/dL (0.7-1.3) Estimated GFR (Cockcroft-Gault) 64.9 BUN/Creatinine Ratio 30 (6-20) H Glucose Level 98 mg/dL (70-99) Calcium Level 8.0 mg/dL (8.5-10.1) L Total Bilirubin 0.2 mg/dL (0.2-1.0) Aspartate Amino Transferase (AST) 21 U/L (15-37) Alanine Aminotransferase (ALT) 46 U/L (16-63) Alkaline Phosphatase 83 U/L (46-116) Total Protein 6.5 g/dL (6.4-8.2) Albumin 2.8 g/dL (3.4-5.0) L Albumin/Globulin Ratio 0.8 (1.0-1.7) L Carbamazepine (Tegretol) Level 7.0 mcg/mL (4.0-12.0) Carbamazepine Last Dose Date 10/05/20 Carbamazepine Last Dose Time 1700 Current Medications: Meds: Laboratory Tests Test 10/06/20 06:32 White Blood Count 5.2 x10^3/uL Red Blood Count 3.53 x10^6/uL Hemoglobin 9.9 g/dL Hematocrit 31.0 % Mean Corpuscular Volume 88 fL Mean Corpuscular Hemoglobin 28 pg Mean Corpuscular Hemoglobin Concent 32 g/dL Red Cell Distribution Width 15.9 % Platelet Count 197 x10^3/uL Neutrophils (%) (Auto) 56 % Lymphocytes (%) (Auto) 20 % Monocytes (%) (Auto) 11 % Eosinophils (%) (Auto) 12 % Basophils (%) (Auto) 1 % Neutrophils # (Auto) 2.9 x10^3uL Lymphocytes # (Auto) 1.0 x10^3/uL Monocytes # (Auto) 0.6 x10^3/uL Eosinophils # (Auto) 0.6 x10^3/uL Basophils # (Auto) 0.1 x10^3/uL Sodium Level 146 mmol/L Potassium Level 4.1 mmol/L Chloride Level 108 mmol/L Carbon Dioxide Level 34 mmol/L Anion Gap 4 Blood Urea Nitrogen 33 mg/dL Creatinine 1.1 mg/dL Estimated GFR (Cockcroft-Gault) 64.9 BUN/Creatinine Ratio 30 Glucose Level 98 mg/dL Calcium Level 8.0 mg/dL Total Bilirubin 0.2 mg/dL Aspartate Amino Transf (AST/SGOT) 21 U/L Alanine Aminotransferase (ALT/SGPT) 46 U/L Alkaline Phosphatase 83 U/L Total Protein 6.5 g/dL Albumin 2.8 g/dL Albumin/Globulin Ratio 0.8 Carbamazepine (Tegretol) Level 7.0 mcg/mL Carbamazepine Last Dose Date 10/05/20 Carbamazepine Last Dose Time 1700 Current Medications Medications (Trade) Dose Ordered Sig/Abundio Route PRN Reason Start Time Stop Time Status Last Admin Dose Admin Acetaminophen (Tylenol) 650 mg PRN Q6HRS PRN PO MILD PAIN / TEMP > 100.3'F 09/17/20 15:30 09/21/20 07:53 DC 09/20/20 20:31 Multi-Ingredient Ointment (Analgesic [place]) 1 will PRN QID PRN TP MUSCLE PAIN 09/17/20 15:30 Al Hydroxide/Mg Hydroxide (Mylanta Plus Xs) 15 ml PRN AFTMEALHC PRN PO DYSPEPSIA 09/17/20 15:30 Magnesium Hydroxide (Milk Of Magnesia) 2,400 mg PRN QHS PRN PO 1st choice CONSTIPATION 09/17/20 15:30 09/22/20 22:26 Acetaminophen (Tylenol) 650 mg BID PO 09/17/20 21:00 10/06/20 20:21 Acetaminophen (Tylenol) 650 mg PRN Q6HRS PRN PO MILD PAIN 1-3/ TEMP 09/17/20 16:15 Aspirin (Aspirin Chewable) 81 mg DAILY PO 09/18/20 09:00 10/06/20 08:06 Atorvastatin Calcium (Lipitor) 10 mg QHS PO 09/17/20 21:00 10/06/20 20:21 Bisacodyl (Dulcolax Supp) 10 mg PRN DAILY PRN RC 2nd choice CONSTIPATION 09/17/20 16:15 Diclofenac Sodium (Voltaren) 1 will PRN Q8HRS PRN TP MUSCLE PAIN 09/17/20 16:15 Divalproex Sodium (Depakote Er) 750 mg QHS PO 09/17/20 21:00 09/23/20 18:19 DC 09/22/20 20:42 Lorazepam (Ativan) 0.5 mg PRN BID PRN PO 1ST CHOICE ANXIETY 09/17/20 16:15 09/30/20 20:11 Mirtazapine (Remeron) 15 mg QHS PO 09/17/20 21:00 10/06/20 20:21 Olanzapine (ZyPREXA ZYDIS) 2.5 mg PRN Q2HR PRN PO 2ND CHOICE ANXIETY / AGITATION 09/17/20 16:15 10/05/20 22:50 Oxycodone/ Acetaminophen (Percocet 7.5/ 325) 1 tab PRN Q8HRS PRN PO MOD-SEVERE PAIN 09/17/20 16:15 10/04/20 20:03 Artificial Tears (Artificial Tears) 1 drop PRN Q15MIN PRN OU DRY EYE 09/17/20 16:15 Prazosin HCl (Minipress) 3 mg QHS PO 09/17/20 21:00 10/06/20 20:20 Quetiapine Fumarate (SEROquel) 37.5 mg 0900,1300,1700 PO 09/17/20 17:00 09/22/20 18:34 DC 09/22/20 16:14 Quetiapine Fumarate (SEROquel) 50 mg PRN DAILY PRN PO 3RD CHOICE ANXIETY / AGITATION 09/17/20 16:15 Quetiapine Fumarate (SEROquel) 100 mg QHS PO 09/17/20 21:00 09/22/20 18:34 DC 09/21/20 20:53 Sertraline HCl (Zoloft) 100 mg DAILY@1700 PO 09/17/20 17:00 10/06/20 17:24 Trazodone HCl (Desyrel) 50 mg PRN QHS PRN PO INSOMNIA, MAY REPEAT X1 09/17/20 16:15 10/06/20 20:21 Loperamide HCl (Imodium) 2 mg PRN Q15MIN PRN PO DIARRHEA 09/17/20 16:30 Multivitamins/ Calcium (Thera-M Plus) 1 tab DAILY PO 09/18/20 09:00 10/06/20 08:08 Pantoprazole Sodium (Protonix) 40 mg DAILYAC PO 09/18/20 07:30 10/06/20 08:07 Potassium Chloride (Klor-Con) 10 meq QODAY PO 09/19/20 09:00 09/23/20 11:34 DC 09/21/20 08:08 Quetiapine Fumarate (SEROquel) 75 mg QHS PO 09/22/20 21:00 10/06/20 20:21 Quetiapine Fumarate (SEROquel) 50 mg 0900,1700 PO 09/23/20 09:00 10/06/20 17:24 Quetiapine Fumarate (SEROquel) 37.5 mg 1300 PO 09/23/20 13:00 10/06/20 12:17 Potassium Chloride (Klor-Con) 20 meq 1300 PO 09/23/20 13:00 09/23/20 19:08 DC 09/23/20 12:03 Furosemide (Lasix) 80 mg 1300 PO 09/23/20 13:00 09/23/20 19:08 DC 09/23/20 12:03 Furosemide (Lasix) 80 mg DAILY PO 09/24/20 09:00 10/02/20 17:26 DC 10/02/20 08:24 Potassium Chloride (Klor-Con) 20 meq DAILY PO 09/24/20 09:00 09/30/20 17:27 DC 09/30/20 08:27 Carbamazepine (TEGretol) 100 mg DAILY@0900,1700 PO 09/25/20 20:15 09/29/20 00:02 DC 09/28/20 17:26 Carbamazepine (TEGretol) 100 mg DAILY PO 09/29/20 09:00 10/02/20 16:45 DC 10/01/20 17:14 Carbamazepine (TEGretol) 200 mg DAILYWSUP PO 09/29/20 17:00 10/06/20 17:24 Potassium Chloride (Klor-Con) 20 meq BID PO 09/30/20 18:00 09/30/20 17:31 DC Metolazone (Zaroxolyn) 2.5 mg DAILY PO 10/01/20 09:00 10/02/20 17:26 DC 10/02/20 08:23 Potassium Chloride (Klor-Con) 20 meq BIDWMEALS PO 09/30/20 18:00 10/06/20 17:24 Carbamazepine (TEGretol) 200 mg DAILY PO 10/03/20 09:00 10/06/20 08:07 Furosemide (Lasix) 40 mg DAILY PO 10/03/20 09:00 10/06/20 08:07 I have reviewed the current psychotropics carefully including drug interactions. Risk benefit ratio favors no change other than as noted in my dictated progress note. 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
--- NOTE | 2020-10-06 23:22 | NUR ---
Pt restless this evening, up/down repeatedly and entering other pt's rooms. Compliant with crushed medications. PRN Trazodone administered. Pt currently awake wandering around room.
[2020-10-07] MEDS: oxyCODONE/APAP 7.5/325 1 TAB TABLET PO PRN ×2 (00:42→20:26)
[2020-10-07 06:37] VITALS: BP 97/61
[2020-10-07] MEDS: PANTOPRAZOLE 40 MG TABLET. PO SCH (08:15)
[2020-10-07] MEDS: MULTIVITAMIN with MINERAL TABLET. PO SCH (08:15)
[2020-10-07] MEDS: POTASSIUM CHLORIDE 20 MEQ TABLET.ER. PO SCH ×2 (08:16→16:05)
[2020-10-07] MEDS: FUROSEMIDE 40 MG TABLET PO SCH (08:16)
[2020-10-07] MEDS: ASPIRIN CHEWABLE 81 MG TABLET. PO SCH (08:16)
[2020-10-07] MEDS: QUEtiapine 25 MG TABLET. PO SCH ×4 (08:16→19:59)
[2020-10-07] MEDS: ACETAMINOPHEN 325 MG TABLET PO SCH ×2 (08:16→20:00)
[2020-10-07] MEDS: carBAMazepine 200 MG TABLET PO SCH ×2 (08:16→17:00)
--- NOTE | 2020-10-07 09:08 | NUR ---
Pt A&O to self only, confused and disorganized. He presents with a cooperative and appropriate demeanor this morning. He was initially med compliant with medications crushed and mixed into thickened orange juice, however after 2 spoonfuls he refused to consume the remaining medication d/t his displeasure of the taste. It is unknown at this time just how much of his morning medications was successfully administered to him. Pt absent of SI/HI/VH/AH at this time, PAINAD score is 0. Pt absent of verbal/physical aggression thus far. Plan of care continues, will pass to next shift.
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
[2020-10-07] MEDS ORDERED: QUEtiapine 50 MG TABLET. PO SCH (13:00)
--- NOTE | 2020-10-07 14:16 | NUR ---
Pt was discovered to be urinating on the floor of another patient's room earlier this morning.
[2020-10-07 16:04] VITALS: BP 107/66
[2020-10-07] MEDS: SERTRALINE 100 MG TABLET. PO SCH (17:00)
[2020-10-07] MEDS: LORazepam 0.5 MG TABLET PO PRN (17:29)
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
[2020-10-07] MEDS: MIRTAZAPINE 15 MG TABLET PO SCH (19:59)
[2020-10-07] MEDS: traZODone 50 MG TABLET. PO PRN (19:59)
[2020-10-07] MEDS: ATORVASTATIN CALCIUM 10 MG TABLET. PO SCH (20:01)
[2020-10-07] MEDS: PRAZOSIN 1 MG CAPSULE. PO SCH (20:01)
[2020-10-07] MEDS: MELATONIN 3 MG TABLET PO SCH (21:49)
--- NOTE | 2020-10-07 23:06 | PDOC ---
Exam Note: Raman Note: Please also refer to the separate dictated note~for this date of service dictated separately.~Patient seen individually. Discussed the patient with Nursing staff reviewed the chart.~Reviewed interim history and current functioning. Reviewed vital signs,~Labs/ Radiology~and current medications noted below. Continue current treatment with the changes noted in the dictated addendum note Assessment: Vital Signs/I&O: Vital Signs Date Time Temp Pulse Resp B/P (MAP) Pulse Ox O2 Delivery O2 Flow Rate FiO2 10/07/20 20:56 98 10/07/20 20:01 91 113/61 10/07/20 16:04 98.1 18 10/04/20 16:06 Room Air I & O 10/06/20 10/06/20 10/07/20 15:00 23:00 07:00 Intake Total 600 ml 480 ml Balance 600 ml 480 ml Current Medications: Meds: Current Medications Medications (Trade) Dose Ordered Sig/Abundio Route PRN Reason Start Time Stop Time Status Last Admin Dose Admin Acetaminophen (Tylenol) 650 mg PRN Q6HRS PRN PO MILD PAIN / TEMP > 100.3'F 09/17/20 15:30 09/21/20 07:53 DC 09/20/20 20:31 Multi-Ingredient Ointment (Analgesic [place]) 1 will PRN QID PRN TP MUSCLE PAIN 09/17/20 15:30 Al Hydroxide/Mg Hydroxide (Mylanta Plus Xs) 15 ml PRN AFTMEALHC PRN PO DYSPEPSIA 09/17/20 15:30 Magnesium Hydroxide (Milk Of Magnesia) 2,400 mg PRN QHS PRN PO 1st choice CONSTIPATION 09/17/20 15:30 09/22/20 22:26 Acetaminophen (Tylenol) 650 mg BID PO 09/17/20 21:00 10/07/20 20:00 Acetaminophen (Tylenol) 650 mg PRN Q6HRS PRN PO MILD PAIN 1-3/ TEMP 09/17/20 16:15 Aspirin (Aspirin Chewable) 81 mg DAILY PO 09/18/20 09:00 10/07/20 08:16 Atorvastatin Calcium (Lipitor) 10 mg QHS PO 09/17/20 21:00 10/07/20 20:01 Bisacodyl (Dulcolax Supp) 10 mg PRN DAILY PRN RC 2nd choice CONSTIPATION 09/17/20 16:15 Diclofenac Sodium (Voltaren) 1 will PRN Q8HRS PRN TP MUSCLE PAIN 09/17/20 16:15 Divalproex Sodium (Depakote Er) 750 mg QHS PO 09/17/20 21:00 09/23/20 18:19 DC 09/22/20 20:42 Lorazepam (Ativan) 0.5 mg PRN BID PRN PO 1ST CHOICE ANXIETY 09/17/20 16:15 10/07/20 17:29 Mirtazapine (Remeron) 15 mg QHS PO 09/17/20 21:00 10/07/20 19:59 Olanzapine (ZyPREXA ZYDIS) 2.5 mg PRN Q2HR PRN PO 2ND CHOICE ANXIETY / AGITATION 09/17/20 16:15 10/07/20 20:25 Oxycodone/ Acetaminophen (Percocet 7.5/ 325) 1 tab PRN Q8HRS PRN PO MOD-SEVERE PAIN 09/17/20 16:15 10/07/20 20:26 Artificial Tears (Artificial Tears) 1 drop PRN Q15MIN PRN OU DRY EYE 09/17/20 16:15 Prazosin HCl (Minipress) 3 mg QHS PO 09/17/20 21:00 10/07/20 20:01 Quetiapine Fumarate (SEROquel) 37.5 mg 0900,1300,1700 PO 09/17/20 17:00 09/22/20 18:34 DC 09/22/20 16:14 Quetiapine Fumarate (SEROquel) 50 mg PRN DAILY PRN PO 3RD CHOICE ANXIETY / AGITATION 09/17/20 16:15 Quetiapine Fumarate (SEROquel) 100 mg QHS PO 09/17/20 21:00 09/22/20 18:34 DC 09/21/20 20:53 Sertraline HCl (Zoloft) 100 mg DAILY@1700 PO 09/17/20 17:00 10/07/20 17:00 Trazodone HCl (Desyrel) 50 mg PRN QHS PRN PO INSOMNIA, MAY REPEAT X1 09/17/20 16:15 10/07/20 19:59 Loperamide HCl (Imodium) 2 mg PRN Q15MIN PRN PO DIARRHEA 09/17/20 16:30 Multivitamins/ Calcium (Thera-M Plus) 1 tab DAILY PO 09/18/20 09:00 10/07/20 08:15 Pantoprazole Sodium (Protonix) 40 mg DAILYAC PO 09/18/20 07:30 10/07/20 08:15 Potassium Chloride (Klor-Con) 10 meq QODAY PO 09/19/20 09:00 09/23/20 11:34 DC 09/21/20 08:08 Quetiapine Fumarate (SEROquel) 75 mg QHS PO 09/22/20 21:00 10/07/20 19:59 Quetiapine Fumarate (SEROquel) 50 mg 0900,1700 PO 09/23/20 09:00 10/07/20 17:00 Quetiapine Fumarate (SEROquel) 37.5 mg 1300 PO 09/23/20 13:00 10/07/20 20:56 DC 10/07/20 12:05 Potassium Chloride (Klor-Con) 20 meq 1300 PO 09/23/20 13:00 09/23/20 19:08 DC 09/23/20 12:03 Furosemide (Lasix) 80 mg 1300 PO 09/23/20 13:00 09/23/20 19:08 DC 09/23/20 12:03 Furosemide (Lasix) 80 mg DAILY PO 09/24/20 09:00 10/02/20 17:26 DC 10/02/20 08:24 Potassium Chloride (Klor-Con) 20 meq DAILY PO 09/24/20 09:00 09/30/20 17:27 DC 09/30/20 08:27 Carbamazepine (TEGretol) 100 mg DAILY@0900,1700 PO 09/25/20 20:15 09/29/20 00:02 DC 09/28/20 17:26 Carbamazepine (TEGretol) 100 mg DAILY PO 09/29/20 09:00 10/02/20 16:45 DC 10/01/20 17:14 Carbamazepine (TEGretol) 200 mg DAILYWSUP PO 09/29/20 17:00 10/07/20 17:00 Potassium Chloride (Klor-Con) 20 meq BID PO 09/30/20 18:00 09/30/20 17:31 DC Metolazone (Zaroxolyn) 2.5 mg DAILY PO 10/01/20 09:00 10/02/20 17:26 DC 10/02/20 08:23 Potassium Chloride (Klor-Con) 20 meq BIDWMEALS PO 09/30/20 18:00 10/07/20 08:16 Carbamazepine (TEGretol) 200 mg DAILY PO 10/03/20 09:00 10/07/20 08:16 Furosemide (Lasix) 40 mg DAILY PO 10/03/20 09:00 10/07/20 08:16 Quetiapine Fumarate (SEROquel) 50 mg 1300 PO 10/07/20 13:00 10/07/20 21:01 DC Melatonin (Melatonin) 3 mg HS PO 10/07/20 21:00 10/07/20 21:49 Quetiapine Fumarate (SEROquel) 50 mg 1300 PO 10/08/20 13:00 Current Medications Medications (Trade) Dose Ordered Sig/Abundio Route PRN Reason Start Time Stop Time Status Last Admin Dose Admin Melatonin (Melatonin) 3 mg HS PO 10/07/20 21:00 10/07/20 21:49 I have reviewed the current psychotropics carefully including drug interactions. Risk benefit ratio favors no change other than as noted in my dictated progress note. Diagnosis: Problems: (1) Impulse control disorder, unspecified (2) PTSD (post-traumatic stress disorder) (3) Anxiety disorder, unspecified (4) Dementia, vascular, with depression (5) Dementia, vascular, with delusions (6) Dementia in Alzheimer's disease with depression (7) Dementia in Alzheimer's disease with delusions (8) Dementia of the Alzheimer's type with early onset with behavioral dist urbance (9) Major neurocognitive disorder DUANE NINO MD Oct 07, 2020 23:06
--- NOTE | 2020-10-07 23:41 | NUR ---
Pt wandering in the hallway when approached. Pt confused, disorganized, and delusional. Pt asking if his mom found the puppies, also believes that another female peer is his child/family and that he needs to keep her safe. During staff re-direction, pt became agitated, hostile, and attempted to raise his arm to staff. PRN Trazodone administered @1999 with HS medications. Pt attempted to enter female peers room multiple times and had to be removed by staff. Pt once again became angry, posturing towards staff. PRN Zydis and PRN Percocet administered @2025 for agitation and pain- pt rubbing his R leg with a grimace on his face.
[2020-10-08 05:58] VITALS: BP 99/62
--- NOTE | 2020-10-08 06:34 | PDOC ---
Exam Note: Raman Note: This note is a late entry for 10/05/2020 covers elements not covered in my initial note. Subjective: The patient was seen face to face in the evening of 10/05/2020 with Shavon MONTEMAYOR, discussed and reviewed the chart. The patient slept 6 hours previous night. He did well in the morning. After dinner he was somewhat agitated, felt there were 2 kids in his car who were in an accident. He is paranoid, getting a little agitated. Received Zyprexa and then was better. He remains on honey-thickened liquids. Review of Systems: No CV, , pulmonary, eye, ENT system symptoms on review. Reliability poor. Mental Status Exam: The patient is oriented to himself. He appears somewhat paranoid, hyper alert during the individual visit but quite redirectable and pleasant despite this. Insight and judgment, recent and remote memory, attention and concentration, fund of knowledge is poor consistent with his diagnoses. Laboratory Data: Reviewed. Impression: Major neurocognitive disorder Alzheimer vascular with delusion, depression, and behavioral disturbance. Anxiety disorder unspecified. Impulse control disorder unspecified. PTSD. Plan: Continue current psychotropics unchanged. Assessment: Vital Signs/I&O: Vital Signs Date Time Temp Pulse Resp B/P (MAP) Pulse Ox O2 Delivery O2 Flow Rate FiO2 10/08/20 05:58 98.2 83 18 99/62 (74) 96 10/04/20 16:06 Room Air I & O 10/07/20 10/07/20 10/08/20 15:00 23:00 07:00 Intake Total 840 ml 240 ml 120 ml Balance 840 ml 240 ml 120 ml Current Medications: Meds: Current Medications Medications (Trade) Dose Ordered Sig/Abundio Route PRN Reason Start Time Stop Time Status Last Admin Dose Admin Acetaminophen (Tylenol) 650 mg PRN Q6HRS PRN PO MILD PAIN / TEMP > 100.3'F 09/17/20 15:30 09/21/20 07:53 DC 09/20/20 20:31 Multi-Ingredient Ointment (Analgesic [place]) 1 will PRN QID PRN TP MUSCLE PAIN 09/17/20 15:30 Al Hydroxide/Mg Hydroxide (Mylanta Plus Xs) 15 ml PRN AFTMEALHC PRN PO DYSPEPSIA 09/17/20 15:30 Magnesium Hydroxide (Milk Of Magnesia) 2,400 mg PRN QHS PRN PO 1st choice CONSTIPATION 09/17/20 15:30 09/22/20 22:26 Acetaminophen (Tylenol) 650 mg BID PO 09/17/20 21:00 10/07/20 20:00 Acetaminophen (Tylenol) 650 mg PRN Q6HRS PRN PO MILD PAIN 1-3/ TEMP 09/17/20 16:15 Aspirin (Aspirin Chewable) 81 mg DAILY PO 09/18/20 09:00 10/07/20 08:16 Atorvastatin Calcium (Lipitor) 10 mg QHS PO 09/17/20 21:00 10/07/20 20:01 Bisacodyl (Dulcolax Supp) 10 mg PRN DAILY PRN RC 2nd choice CONSTIPATION 09/17/20 16:15 Diclofenac Sodium (Voltaren) 1 will PRN Q8HRS PRN TP MUSCLE PAIN 09/17/20 16:15 Divalproex Sodium (Depakote Er) 750 mg QHS PO 09/17/20 21:00 09/23/20 18:19 DC 09/22/20 20:42 Lorazepam (Ativan) 0.5 mg PRN BID PRN PO 1ST CHOICE ANXIETY 09/17/20 16:15 10/07/20 17:29 Mirtazapine (Remeron) 15 mg QHS PO 09/17/20 21:00 10/07/20 19:59 Olanzapine (ZyPREXA ZYDIS) 2.5 mg PRN Q2HR PRN PO 2ND CHOICE ANXIETY / AGITATION 09/17/20 16:15 10/07/20 20:25 Oxycodone/ Acetaminophen (Percocet 7.5/ 325) 1 tab PRN Q8HRS PRN PO MOD-SEVERE PAIN 09/17/20 16:15 10/07/20 20:26 Artificial Tears (Artificial Tears) 1 drop PRN Q15MIN PRN OU DRY EYE 09/17/20 16:15 Prazosin HCl (Minipress) 3 mg QHS PO 09/17/20 21:00 10/07/20 20:01 Quetiapine Fumarate (SEROquel) 37.5 mg 0900,1300,1700 PO 09/17/20 17:00 09/22/20 18:34 DC 09/22/20 16:14 Quetiapine Fumarate (SEROquel) 50 mg PRN DAILY PRN PO 3RD CHOICE ANXIETY / AGITATION 09/17/20 16:15 Quetiapine Fumarate (SEROquel) 100 mg QHS PO 09/17/20 21:00 09/22/20 18:34 DC 09/21/20 20:53 Sertraline HCl (Zoloft) 100 mg DAILY@1700 PO 09/17/20 17:00 10/07/20 17:00 Trazodone HCl (Desyrel) 50 mg PRN QHS PRN PO INSOMNIA, MAY REPEAT X1 09/17/20 16:15 10/07/20 19:59 Loperamide HCl (Imodium) 2 mg PRN Q15MIN PRN PO DIARRHEA 09/17/20 16:30 Multivitamins/ Calcium (Thera-M Plus) 1 tab DAILY PO 09/18/20 09:00 10/07/20 08:15 Pantoprazole Sodium (Protonix) 40 mg DAILYAC PO 09/18/20 07:30 10/07/20 08:15 Potassium Chloride (Klor-Con) 10 meq QODAY PO 09/19/20 09:00 09/23/20 11:34 DC 09/21/20 08:08 Quetiapine Fumarate (SEROquel) 75 mg QHS PO 09/22/20 21:00 10/07/20 19:59 Quetiapine Fumarate (SEROquel) 50 mg 0900,1700 PO 09/23/20 09:00 10/07/20 17:00 Quetiapine Fumarate (SEROquel) 37.5 mg 1300 PO 09/23/20 13:00 10/07/20 20:56 DC 10/07/20 12:05 Potassium Chloride (Klor-Con) 20 meq 1300 PO 09/23/20 13:00 09/23/20 19:08 DC 09/23/20 12:03 Furosemide (Lasix) 80 mg 1300 PO 09/23/20 13:00 09/23/20 19:08 DC 09/23/20 12:03 Furosemide (Lasix) 80 mg DAILY PO 09/24/20 09:00 10/02/20 17:26 DC 10/02/20 08:24 Potassium Chloride (Klor-Con) 20 meq DAILY PO 09/24/20 09:00 09/30/20 17:27 DC 09/30/20 08:27 Carbamazepine (TEGretol) 100 mg DAILY@0900,1700 PO 09/25/20 20:15 09/29/20 00:02 DC 09/28/20 17:26 Carbamazepine (TEGretol) 100 mg DAILY PO 09/29/20 09:00 10/02/20 16:45 DC 10/01/20 17:14 Carbamazepine (TEGretol) 200 mg DAILYWSUP PO 09/29/20 17:00 10/07/20 17:00 Potassium Chloride (Klor-Con) 20 meq BID PO 09/30/20 18:00 09/30/20 17:31 DC Metolazone (Zaroxolyn) 2.5 mg DAILY PO 10/01/20 09:00 10/02/20 17:26 DC 10/02/20 08:23 Potassium Chloride (Klor-Con) 20 meq BIDWMEALS PO 09/30/20 18:00 10/07/20 08:16 Carbamazepine (TEGretol) 200 mg DAILY PO 10/03/20 09:00 10/07/20 08:16 Furosemide (Lasix) 40 mg DAILY PO 10/03/20 09:00 10/07/20 08:16 Quetiapine Fumarate (SEROquel) 50 mg 1300 PO 10/07/20 13:00 10/07/20 21:01 DC Melatonin (Melatonin) 3 mg HS PO 10/07/20 21:00 10/07/20 21:49 Quetiapine Fumarate (SEROquel) 50 mg 1300 PO 10/08/20 13:00 Current Medications Medications (Trade) Dose Ordered Sig/Abundio Route PRN Reason Start Time Stop Time Status Last Admin Dose Admin Melatonin (Melatonin) 3 mg HS PO 10/07/20 21:00 10/07/20 21:49 I have reviewed the current psychotropics carefully including drug interactions. Risk benefit ratio favors no change other than as noted in my dictated progress note. Diagnosis: Problems: (1) Impulse control disorder, unspecified (2) PTSD (post-traumatic stress disorder) (3) Anxiety disorder, unspecified (4) Dementia, vascular, with depression (5) Dementia, vascular, with delusions (6) Dementia in Alzheimer's disease with depression (7) Dementia in Alzheimer's disease with delusions (8) Dementia of the Alzheimer's type with early onset with behavioral disturbance (9) Major neurocognitive disorder DUANE NINO MD Oct 08, 2020 06:34
--- NOTE | 2020-10-08 06:46 | PDOC ---
Exam Note: Raman Note: This note is a late entry for 10/06/2020 covers elements not covered in my initial note. Subjective: The patient was seen face to face in the evening of 10/06/2020 with Almita MONTEMAYOR, discussed and reviewed the chart. The patient slept 4-1/4 hours previous night. Patient is being somewhat delusional, looking for his and daughter, felt his had been killed in motor-vehicle accident. He was getting agitated but redirected. He is compliant with medications. Review of Systems: No CV, , pulmonary, eye, ENT system symptoms on review. Reliability poor. Mental Status Exam: The patient is oriented to himself. Insight and judgment, recent and remote memory, attention and concentration, fund of knowledge is poor consistent with his diagnoses. Laboratory Data: Reviewed. Impression: Major neurocognitive disorder Alzheimer vascular with delusion, depression, and behavioral disturbance. Anxiety disorder unspecified. Impulse control disorder unspecified. PTSD. Plan: Continue current psychotropics unchanged. Assessment: Vital Signs/I&O: Vital Signs Date Time Temp Pulse Resp B/P (MAP) Pulse Ox O2 Delivery O2 Flow Rate FiO2 10/08/20 05:58 98.2 83 18 99/62 (74) 96 10/04/20 16:06 Room Air I & O 10/07/20 10/07/20 10/08/20 15:00 23:00 07:00 Intake Total 840 ml 240 ml 120 ml Balance 840 ml 240 ml 120 ml Current Medications: Meds: Current Medications Medications (Trade) Dose Ordered Sig/Abundio Route PRN Reason Start Time Stop Time Status Last Admin Dose Admin Acetaminophen (Tylenol) 650 mg PRN Q6HRS PRN PO MILD PAIN / TEMP > 100.3'F 09/17/20 15:30 09/21/20 07:53 DC 09/20/20 20:31 Multi-Ingredient Ointment (Analgesic [place]) 1 will PRN QID PRN TP MUSCLE PAIN 09/17/20 15:30 Al Hydroxide/Mg Hydroxide (Mylanta Plus Xs) 15 ml PRN AFTMEALHC PRN PO DYSPEPSIA 09/17/20 15:30 Magnesium Hydroxide (Milk Of Magnesia) 2,400 mg PRN QHS PRN PO 1st choice CONSTIPATION 09/17/20 15:30 09/22/20 22:26 Acetaminophen (Tylenol) 650 mg BID PO 09/17/20 21:00 10/07/20 20:00 Acetaminophen (Tylenol) 650 mg PRN Q6HRS PRN PO MILD PAIN 1-3/ TEMP 09/17/20 16:15 Aspirin (Aspirin Chewable) 81 mg DAILY PO 09/18/20 09:00 10/07/20 08:16 Atorvastatin Calcium (Lipitor) 10 mg QHS PO 09/17/20 21:00 10/07/20 20:01 Bisacodyl (Dulcolax Supp) 10 mg PRN DAILY PRN RC 2nd choice CONSTIPATION 09/17/20 16:15 Diclofenac Sodium (Voltaren) 1 will PRN Q8HRS PRN TP MUSCLE PAIN 09/17/20 16:15 Divalproex Sodium (Depakote Er) 750 mg QHS PO 09/17/20 21:00 09/23/20 18:19 DC 09/22/20 20:42 Lorazepam (Ativan) 0.5 mg PRN BID PRN PO 1ST CHOICE ANXIETY 09/17/20 16:15 10/07/20 17:29 Mirtazapine (Remeron) 15 mg QHS PO 09/17/20 21:00 10/07/20 19:59 Olanzapine (ZyPREXA ZYDIS) 2.5 mg PRN Q2HR PRN PO 2ND CHOICE ANXIETY / AGITATION 09/17/20 16:15 10/07/20 20:25 Oxycodone/ Acetaminophen (Percocet 7.5/ 325) 1 tab PRN Q8HRS PRN PO MOD-SEVERE PAIN 09/17/20 16:15 10/07/20 20:26 Artificial Tears (Artificial Tears) 1 drop PRN Q15MIN PRN OU DRY EYE 09/17/20 16:15 Prazosin HCl (Minipress) 3 mg QHS PO 09/17/20 21:00 10/07/20 20:01 Quetiapine Fumarate (SEROquel) 37.5 mg 0900,1300,1700 PO 09/17/20 17:00 09/22/20 18:34 DC 09/22/20 16:14 Quetiapine Fumarate (SEROquel) 50 mg PRN DAILY PRN PO 3RD CHOICE ANXIETY / AGITATION 09/17/20 16:15 Quetiapine Fumarate (SEROquel) 100 mg QHS PO 09/17/20 21:00 09/22/20 18:34 DC 09/21/20 20:53 Sertraline HCl (Zoloft) 100 mg DAILY@1700 PO 09/17/20 17:00 10/07/20 17:00 Trazodone HCl (Desyrel) 50 mg PRN QHS PRN PO INSOMNIA, MAY REPEAT X1 09/17/20 16:15 10/07/20 19:59 Loperamide HCl (Imodium) 2 mg PRN Q15MIN PRN PO DIARRHEA 09/17/20 16:30 Multivitamins/ Calcium (Thera-M Plus) 1 tab DAILY PO 09/18/20 09:00 10/07/20 08:15 Pantoprazole Sodium (Protonix) 40 mg DAILYAC PO 09/18/20 07:30 10/07/20 08:15 Potassium Chloride (Klor-Con) 10 meq QODAY PO 09/19/20 09:00 09/23/20 11:34 DC 09/21/20 08:08 Quetiapine Fumarate (SEROquel) 75 mg QHS PO 09/22/20 21:00 10/07/20 19:59 Quetiapine Fumarate (SEROquel) 50 mg 0900,1700 PO 09/23/20 09:00 10/07/20 17:00 Quetiapine Fumarate (SEROquel) 37.5 mg 1300 PO 09/23/20 13:00 10/07/20 20:56 DC 10/07/20 12:05 Potassium Chloride (Klor-Con) 20 meq 1300 PO 09/23/20 13:00 09/23/20 19:08 DC 09/23/20 12:03 Furosemide (Lasix) 80 mg 1300 PO 09/23/20 13:00 09/23/20 19:08 DC 09/23/20 12:03 Furosemide (Lasix) 80 mg DAILY PO 09/24/20 09:00 10/02/20 17:26 DC 10/02/20 08:24 Potassium Chloride (Klor-Con) 20 meq DAILY PO 09/24/20 09:00 09/30/20 17:27 DC 09/30/20 08:27 Carbamazepine (TEGretol) 100 mg DAILY@0900,1700 PO 09/25/20 20:15 09/29/20 00:02 DC 09/28/20 17:26 Carbamazepine (TEGretol) 100 mg DAILY PO 09/29/20 09:00 10/02/20 16:45 DC 10/01/20 17:14 Carbamazepine (TEGretol) 200 mg DAILYWSUP PO 09/29/20 17:00 10/07/20 17:00 Potassium Chloride (Klor-Con) 20 meq BID PO 09/30/20 18:00 09/30/20 17:31 DC Metolazone (Zaroxolyn) 2.5 mg DAILY PO 10/01/20 09:00 10/02/20 17:26 DC 10/02/20 08:23 Potassium Chloride (Klor-Con) 20 meq BIDWMEALS PO 09/30/20 18:00 10/07/20 08:16 Carbamazepine (TEGretol) 200 mg DAILY PO 10/03/20 09:00 10/07/20 08:16 Furosemide (Lasix) 40 mg DAILY PO 10/03/20 09:00 10/07/20 08:16 Quetiapine Fumarate (SEROquel) 50 mg 1300 PO 10/07/20 13:00 10/07/20 21:01 DC Melatonin (Melatonin) 3 mg HS PO 10/07/20 21:00 10/07/20 21:49 Quetiapine Fumarate (SEROquel) 50 mg 1300 PO 10/08/20 13:00 Current Medications Medications (Trade) Dose Ordered Sig/Abundio Route PRN Reason Start Time Stop Time Status Last Admin Dose Admin Melatonin (Melatonin) 3 mg HS PO 10/07/20 21:00 10/07/20 21:49 I have reviewed the current psychotropics carefully including drug interactions. Risk benefit ratio favors no change other than as noted in my dictated progress note. Diagnosis: Problems: (1) Impulse control disorder, unspecified (2) PTSD (post-traumatic stress disorder) (3) Anxiety disorder, unspecified (4) Dementia, vascular, with depression (5) Dementia, vascular, with delusions (6) Dementia in Alzheimer's disease with depression (7) Dementia in Alzheimer's disease with delusions (8) Dementia of the Alzheimer's type with early onset with behavioral disturbance (9) Major neurocognitive disorder DUANE NINO MD Oct 08, 2020 06:46
--- NOTE | 2020-10-08 06:57 | PDOC ---
Exam Note: Raman Note: This note is a late entry for 10/07/2020 covers elements not covered in my initial note. Subjective: The patient was seen face to face in the evening of 10/07/2020 with Andreia MONTEMAYOR, discussed and reviewed the chart. The patient slept 3-1/2 hours previous night. He was quite paranoid. At lunch time he was glaring at another demented patient and then later yelling at one of the nursing staff, swearing at staff. He slept poorly last night. He urinated on the floor during the day, bowel movement on the floor. He is irritable and combative at times, confused, delusional, calling nursing staff profane names. Review of Systems: No CV, , pulmonary, eye, ENT system symptoms on review. Reliability poor. Mental Status Exam: The patient is oriented to himself. Insight and judgment, recent and remote memory, attention and concentration, fund of knowledge is poor consistent with his diagnoses. Laboratory Data: Reviewed. Impression: Major neurocognitive disorder Alzheimer vascular with delusion, depression, and behavioral disturbance. Anxiety disorder unspecified. Impulse control disorder unspecified. PTSD. Plan: Continue current psychotropics. Increase 1 p.m. Seroquel from 37.5 mg to 50 mg. Start melatonin 3 mg h.s. Reviewed risk-benefit ratio and drug interactions. Tegretol level is 7 therapeutic and we will keep this unchanged. Adjust further as clinically indicated. Assessment: Vital Signs/I&O: Vital Signs Date Time Temp Pulse Resp B/P (MAP) Pulse Ox O2 Delivery O2 Flow Rate FiO2 10/08/20 05:58 98.2 83 18 99/62 (74) 96 10/04/20 16:06 Room Air I & O 10/07/20 10/07/20 10/08/20 15:00 23:00 07:00 Intake Total 840 ml 240 ml 120 ml Balance 840 ml 240 ml 120 ml Current Medications: Meds: Current Medications Medications (Trade) Dose Ordered Sig/Abundio Route PRN Reason Start Time Stop Time Status Last Admin Dose Admin Acetaminophen (Tylenol) 650 mg PRN Q6HRS PRN PO MILD PAIN / TEMP > 100.3'F 09/17/20 15:30 09/21/20 07:53 DC 09/20/20 20:31 Multi-Ingredient Ointment (Analgesic [place]) 1 will PRN QID PRN TP MUSCLE PAIN 09/17/20 15:30 Al Hydroxide/Mg Hydroxide (Mylanta Plus Xs) 15 ml PRN AFTMEALHC PRN PO DYSPEPSIA 09/17/20 15:30 Magnesium Hydroxide (Milk Of Magnesia) 2,400 mg PRN QHS PRN PO 1st choice CONSTIPATION 09/17/20 15:30 09/22/20 22:26 Acetaminophen (Tylenol) 650 mg BID PO 09/17/20 21:00 10/07/20 20:00 Acetaminophen (Tylenol) 650 mg PRN Q6HRS PRN PO MILD PAIN 1-3/ TEMP 09/17/20 16:15 Aspirin (Aspirin Chewable) 81 mg DAILY PO 09/18/20 09:00 10/07/20 08:16 Atorvastatin Calcium (Lipitor) 10 mg QHS PO 09/17/20 21:00 10/07/20 20:01 Bisacodyl (Dulcolax Supp) 10 mg PRN DAILY PRN RC 2nd choice CONSTIPATION 09/17/20 16:15 Diclofenac Sodium (Voltaren) 1 will PRN Q8HRS PRN TP MUSCLE PAIN 09/17/20 16:15 Divalproex Sodium (Depakote Er) 750 mg QHS PO 09/17/20 21:00 09/23/20 18:19 DC 09/22/20 20:42 Lorazepam (Ativan) 0.5 mg PRN BID PRN PO 1ST CHOICE ANXIETY 09/17/20 16:15 10/07/20 17:29 Mirtazapine (Remeron) 15 mg QHS PO 09/17/20 21:00 10/07/20 19:59 Olanzapine (ZyPREXA ZYDIS) 2.5 mg PRN Q2HR PRN PO 2ND CHOICE ANXIETY / AGITATION 09/17/20 16:15 10/07/20 20:25 Oxycodone/ Acetaminophen (Percocet 7.5/ 325) 1 tab PRN Q8HRS PRN PO MOD-SEVERE PAIN 09/17/20 16:15 10/07/20 20:26 Artificial Tears (Artificial Tears) 1 drop PRN Q15MIN PRN OU DRY EYE 09/17/20 16:15 Prazosin HCl (Minipress) 3 mg QHS PO 09/17/20 21:00 8/22/21 20:01 Quetiapine Fumarate (SEROquel) 37.5 mg 0900,1300,1700 PO 09/17/20 17:00 09/22/20 18:34 DC 09/22/20 16:14 Quetiapine Fumarate (SEROquel) 50 mg PRN DAILY PRN PO 3RD CHOICE ANXIETY / AGITATION 09/17/20 16:15 Quetiapine Fumarate (SEROquel) 100 mg QHS PO 09/17/20 21:00 09/22/20 18:34 DC 09/21/20 20:53 Sertraline HCl (Zoloft) 100 mg DAILY@1700 PO 09/17/20 17:00 10/07/20 17:00 Trazodone HCl (Desyrel) 50 mg PRN QHS PRN PO INSOMNIA, MAY REPEAT X1 09/17/20 16:15 10/07/20 19:59 Loperamide HCl (Imodium) 2 mg PRN Q15MIN PRN PO DIARRHEA 09/17/20 16:30 Multivitamins/ Calcium (Thera-M Plus) 1 tab DAILY PO 09/18/20 09:00 10/07/20 08:15 Pantoprazole Sodium (Protonix) 40 mg DAILYAC PO 09/18/20 07:30 10/07/20 08:15 Potassium Chloride (Klor-Con) 10 meq QODAY PO 09/19/20 09:00 09/23/20 11:34 DC 09/21/20 08:08 Quetiapine Fumarate (SEROquel) 75 mg QHS PO 09/22/20 21:00 10/07/20 19:59 Quetiapine Fumarate (SEROquel) 50 mg 0900,1700 PO 09/23/20 09:00 10/07/20 17:00 Quetiapine Fumarate (SEROquel) 37.5 mg 1300 PO 09/23/20 13:00 10/07/20 20:56 DC 10/07/20 12:05 Potassium Chloride (Klor-Con) 20 meq 1300 PO 09/23/20 13:00 09/23/20 19:08 DC 09/23/20 12:03 Furosemide (Lasix) 80 mg 1300 PO 09/23/20 13:00 09/23/20 19:08 DC 09/23/20 12:03 Furosemide (Lasix) 80 mg DAILY PO 09/24/20 09:00 10/02/20 17:26 DC 10/02/20 08:24 Potassium Chloride (Klor-Con) 20 meq DAILY PO 09/24/20 09:00 09/30/20 17:27 DC 09/30/20 08:27 Carbamazepine (TEGretol) 100 mg DAILY@0900,1700 PO 09/25/20 20:15 09/29/20 00:02 DC 09/28/20 17:26 Carbamazepine (TEGretol) 100 mg DAILY PO 09/29/20 09:00 10/02/20 16:45 DC 10/01/20 17:14 Carbamazepine (TEGretol) 200 mg DAILYWSUP PO 09/29/20 17:00 10/07/20 17:00 Potassium Chloride (Klor-Con) 20 meq BID PO 09/30/20 18:00 09/30/20 17:31 DC Metolazone (Zaroxolyn) 2.5 mg DAILY PO 10/01/20 09:00 10/02/20 17:26 DC 10/02/20 08:23 Potassium Chloride (Klor-Con) 20 meq BIDWMEALS PO 09/30/20 18:00 10/07/20 08:16 Carbamazepine (TEGretol) 200 mg DAILY PO 10/03/20 09:00 10/07/20 08:16 Furosemide (Lasix) 40 mg DAILY PO 10/03/20 09:00 10/07/20 08:16 Quetiapine Fumarate (SEROquel) 50 mg 1300 PO 10/07/20 13:00 10/07/20 21:01 DC Melatonin (Melatonin) 3 mg HS PO 10/07/20 21:00 10/07/20 21:49 Quetiapine Fumarate (SEROquel) 50 mg 1300 PO 10/08/20 13:00 Current Medications Medications (Trade) Dose Ordered Sig/Abundio Route PRN Reason Start Time Stop Time Status Last Admin Dose Admin Melatonin (Melatonin) 3 mg HS PO 10/07/20 21:00 10/07/20 21:49 I have reviewed the current psychotropics carefully including drug interactions. Risk benefit ratio favors no change other than as noted in my dictated progress note. Diagnosis: Problems: (1) Impulse control disorder, unspecified (2) PTSD (post-traumatic stress disorder) (3) Anxiety disorder, unspecified (4) Dementia, vascular, with depression (5) Dementia, vascular, with delusions (6) Dementia in Alzheimer's disease with depression (7) Dementia in Alzheimer's disease with delusions (8) Dementia of the Alzheimer's type with early onset with behavioral disturbance (9) Major neurocognitive disorder DUANE NINO MD Oct 08, 2020 06:57
[2020-10-08] MEDS: POTASSIUM CHLORIDE 20 MEQ TABLET.ER. PO SCH ×2 (08:35→17:11)
[2020-10-08] MEDS: ASPIRIN CHEWABLE 81 MG TABLET. PO SCH (08:35)
[2020-10-08] MEDS: MULTIVITAMIN with MINERAL TABLET. PO SCH (08:35)
[2020-10-08] MEDS: carBAMazepine 200 MG TABLET PO SCH ×2 (08:35→17:10)
[2020-10-08] MEDS: PANTOPRAZOLE 40 MG TABLET. PO SCH (08:35)
[2020-10-08] MEDS: ACETAMINOPHEN 325 MG TABLET PO SCH ×2 (08:35→20:09)
[2020-10-08] MEDS: QUEtiapine 25 MG TABLET. PO SCH ×3 (08:36→20:08)
[2020-10-08] MEDS: FUROSEMIDE 40 MG TABLET PO SCH (08:36)
--- NOTE | 2020-10-08 11:43 | NUR ---
Nurse note Patient wandering in hallway and day room. Patient is complaint with medication. patient disorganized and confused, no hallucinations at this time.
[2020-10-08] MEDS: QUEtiapine 50 MG TABLET. PO SCH (13:10)
--- NOTE | 2020-10-08 13:18 | NUR ---
After review with Dr. Davis, d/c postponed due to agitation and aggression observed over this past weekend. Updated Caryl at [facility] and faxed current notes, medication list and labs for review.
[2020-10-08 15:25] VITALS: BP 103/65
[2020-10-08] MEDS: SERTRALINE 100 MG TABLET. PO SCH (17:11)
--- NOTE | 2020-10-08 17:50 | NUR ---
Nurse Note Patient wandered into a another patient's room asking him to get up and that he is in the wrong room. patient was redirected ; he became agitated with staff, patient began to yell out racial slur while being redirected. Patient received Zydis prn. Patient is in room.
[2020-10-08] MEDS: ATORVASTATIN CALCIUM 10 MG TABLET. PO SCH (20:08)
[2020-10-08] MEDS: MELATONIN 3 MG TABLET PO SCH (20:08)
[2020-10-08] MEDS: traZODone 50 MG TABLET. PO PRN (20:08)
[2020-10-08] MEDS: MIRTAZAPINE 15 MG TABLET PO SCH (20:08)
[2020-10-08] MEDS: PRAZOSIN 1 MG CAPSULE. PO SCH (20:09)
--- NOTE | 2020-10-08 23:01 | PDOC ---
Exam Note: Raman Note: Please also refer to the separate dictated note~for this date of service dictated separately.~Patient seen individually. Discussed the patient with Nursing staff reviewed the chart.~Reviewed interim history and current functioning. Reviewed vital signs,~Labs/ Radiology~and current medications noted below. Continue current treatment with the changes noted in the dictated addendum note Assessment: Vital Signs/I&O: Vital Signs Date Time Temp Pulse Resp B/P (MAP) Pulse Ox O2 Delivery O2 Flow Rate FiO2 10/08/20 20:09 80 96/62 10/08/20 15:25 97.3 18 99 10/04/20 16:06 Room Air I & O 10/07/20 10/07/20 10/08/20 14:59 22:59 06:59 Intake Total 840 ml 240 ml 120 ml Balance 840 ml 240 ml 120 ml Current Medications: Meds: Current Medications Medications (Trade) Dose Ordered Sig/Abundio Route PRN Reason Start Time Stop Time Status Last Admin Dose Admin Acetaminophen (Tylenol) 650 mg PRN Q6HRS PRN PO MILD PAIN / TEMP > 100.3'F 09/17/20 15:30 09/21/20 07:53 DC 09/20/20 20:31 Multi-Ingredient Ointment (Analgesic [place]) 1 will PRN QID PRN TP MUSCLE PAIN 09/17/20 15:30 Al Hydroxide/Mg Hydroxide (Mylanta Plus Xs) 15 ml PRN AFTMEALHC PRN PO DYSPEPSIA 09/17/20 15:30 Magnesium Hydroxide (Milk Of Magnesia) 2,400 mg PRN QHS PRN PO 1st choice CONSTIPATION 09/17/20 15:30 09/22/20 22:26 Acetaminophen (Tylenol) 650 mg BID PO 09/17/20 21:00 10/08/20 20:09 Acetaminophen (Tylenol) 650 mg PRN Q6HRS PRN PO MILD PAIN 1-3/ TEMP 09/17/20 16:15 Aspirin (Aspirin Chewable) 81 mg DAILY PO 09/18/20 09:00 10/08/20 08:35 Atorvastatin Calcium (Lipitor) 10 mg QHS PO 09/17/20 21:00 10/08/20 20:08 Bisacodyl (Dulcolax Supp) 10 mg PRN DAILY PRN RC 2nd choice CONSTIPATION 09/17/20 16:15 Diclofenac Sodium (Voltaren) 1 will PRN Q8HRS PRN TP MUSCLE PAIN 09/17/20 16:15 Divalproex Sodium (Depakote Er) 750 mg QHS PO 09/17/20 21:00 09/23/20 18:19 DC 09/22/20 20:42 Lorazepam (Ativan) 0.5 mg PRN BID PRN PO 1ST CHOICE ANXIETY 09/17/20 16:15 10/07/20 17:29 Mirtazapine (Remeron) 15 mg QHS PO 09/17/20 21:00 10/08/20 20:08 Olanzapine (ZyPREXA ZYDIS) 2.5 mg PRN Q2HR PRN PO 2ND CHOICE ANXIETY / AGITATION 09/17/20 16:15 10/08/20 17:11 Oxycodone/ Acetaminophen (Percocet 7.5/ 325) 1 tab PRN Q8HRS PRN PO MOD-SEVERE PAIN 09/17/20 16:15 10/07/20 20:26 Artificial Tears (Artificial Tears) 1 drop PRN Q15MIN PRN OU DRY EYE 09/17/20 16:15 Prazosin HCl (Minipress) 3 mg QHS PO 09/17/20 21:00 10/08/20 22:34 DC 10/07/20 20:01 Quetiapine Fumarate (SEROquel) 37.5 mg 0900,1300,1700 PO 09/17/20 17:00 09/22/20 18:34 DC 09/22/20 16:14 Quetiapine Fumarate (SEROquel) 50 mg PRN DAILY PRN PO 3RD CHOICE ANXIETY / AGITATION 09/17/20 16:15 Quetiapine Fumarate (SEROquel) 100 mg QHS PO 09/17/20 21:00 09/22/20 18:34 DC 09/21/20 20:53 Sertraline HCl (Zoloft) 100 mg DAILY@1700 PO 09/17/20 17:00 10/08/20 17:11 Trazodone HCl (Desyrel) 50 mg PRN QHS PRN PO INSOMNIA, MAY REPEAT X1 09/17/20 16:15 10/08/20 20:08 Loperamide HCl (Imodium) 2 mg PRN Q15MIN PRN PO DIARRHEA 09/17/20 16:30 Multivitamins/ Calcium (Thera-M Plus) 1 tab DAILY PO 09/18/20 09:00 10/08/20 08:35 Pantoprazole Sodium (Protonix) 40 mg DAILYAC PO 09/18/20 07:30 10/08/20 08:35 Potassium Chloride (Klor-Con) 10 meq QODAY PO 09/19/20 09:00 09/23/20 11:34 DC 09/21/20 08:08 Quetiapine Fumarate (SEROquel) 75 mg QHS PO 09/22/20 21:00 10/08/20 20:08 Quetiapine Fumarate (SEROquel) 50 mg 0900,1700 PO 09/23/20 09:00 10/08/20 17:10 Quetiapine Fumarate (SEROquel) 37.5 mg 1300 PO 09/23/20 13:00 10/07/20 20:56 DC 10/07/20 12:05 Potassium Chloride (Klor-Con) 20 meq 1300 PO 09/23/20 13:00 09/23/20 19:08 DC 09/23/20 12:03 Furosemide (Lasix) 80 mg 1300 PO 09/23/20 13:00 09/23/20 19:08 DC 09/23/20 12:03 Furosemide (Lasix) 80 mg DAILY PO 09/24/20 09:00 10/02/20 17:26 DC 10/02/20 08:24 Potassium Chloride (Klor-Con) 20 meq DAILY PO 09/24/20 09:00 09/30/20 17:27 DC 09/30/20 08:27 Carbamazepine (TEGretol) 100 mg DAILY@0900,1700 PO 09/25/20 20:15 09/29/20 00:02 DC 09/28/20 17:26 Carbamazepine (TEGretol) 100 mg DAILY PO 09/29/20 09:00 10/02/20 16:45 DC 10/01/20 17:14 Carbamazepine (TEGretol) 200 mg DAILYWSUP PO 09/29/20 17:00 10/08/20 17:10 Potassium Chloride (Klor-Con) 20 meq BID PO 09/30/20 18:00 09/30/20 17:31 DC Metolazone (Zaroxolyn) 2.5 mg DAILY PO 10/01/20 09:00 10/02/20 17:26 DC 10/02/20 08:23 Potassium Chloride (Klor-Con) 20 meq BIDWMEALS PO 09/30/20 18:00 10/08/20 17:11 Carbamazepine (TEGretol) 200 mg DAILY PO 10/03/20 09:00 10/08/20 08:35 Furosemide (Lasix) 40 mg DAILY PO 10/03/20 09:00 10/08/20 08:36 Quetiapine Fumarate (SEROquel) 50 mg 1300 PO 10/07/20 13:00 10/07/20 21:01 DC Melatonin (Melatonin) 3 mg HS PO 10/07/20 21:00 10/08/20 20:08 Quetiapine Fumarate (SEROquel) 50 mg 1300 PO 10/08/20 13:00 10/08/20 13:10 Prazosin HCl (Minipress) 2 mg HS PO 10/09/20 21:00 Current Medications Medications (Trade) Dose Ordered Sig/Abundio Route PRN Reason Start Time Stop Time Status Last Admin Dose Admin Quetiapine Fumarate (SEROquel) 50 mg 1300 PO 10/08/20 13:00 10/08/20 13:10 I have reviewed the current psychotropics carefully including drug interactions. Risk benefit ratio favors no change other than as noted in my dictated progress note. Diagnosis: Problems: (1) Impulse control disorder, unspecified (2) PTSD (post-traumatic stress disorder) (3) Anxiety disorder, unspecified (4) Dementia, vascular, with depression (5) Dementia, vascular, with delusions (6) Dementia in Alzheimer's disease with depression (7) Dementia in Alzheimer's disease with delusions (8) Dementia of the Alzheimer's type with early onset with behavioral disturbance (9) Major neurocognitive disorder DUANE NINO MD Oct 08, 2020 23:01
--- NOTE | 2020-10-08 23:05 | NUR ---
Pt sitting in peer's room when approached. Pt calm, confused, disorganized, interactive, and social with staff and peer. Pt sat in peer's room visiting for more than an hour this evening. Pt has also been delusional- "looking for two little girls". Pt cooperative with assessment and compliant with medications administered crushed in pudding. No agitation or aggression noted thus far this shift.
[2020-10-09 06:35] VITALS: BP 96/63
[2020-10-09] MEDS: ASPIRIN CHEWABLE 81 MG TABLET. PO SCH (08:00)
[2020-10-09] MEDS: PANTOPRAZOLE 40 MG TABLET. PO SCH (08:00)
[2020-10-09] MEDS: MULTIVITAMIN with MINERAL TABLET. PO SCH (08:01)
[2020-10-09] MEDS: ACETAMINOPHEN 325 MG TABLET PO SCH ×2 (08:01→19:47)
[2020-10-09] MEDS: QUEtiapine 25 MG TABLET. PO SCH ×3 (08:02→19:48)
[2020-10-09] MEDS: POTASSIUM CHLORIDE 20 MEQ TABLET.ER. PO SCH ×2 (08:02→17:19)
[2020-10-09] MEDS: carBAMazepine 200 MG TABLET PO SCH ×2 (08:02→17:20)
[2020-10-09] MEDS: FUROSEMIDE 40 MG TABLET PO SCH (08:02)
--- NOTE | 2020-10-09 09:03 | PDOC ---
Exam Note: Raman Note: This note is a late entry for 10/08/2020 covers elements not covered in my initial note. Subjective: The patient was seen face to face in the evening of 10/08/2020 with Andreia MONTEMAYOR, discussed and reviewed the chart. The patient slept 6 hours previous night. His blood pressure was 96/60 mmHg this evening. We will hold the Prazosin starting from tomorrow. We will reduce from 3 mg h.s. to 2 mg h.s. He has been somewhat restless, anxious especially in the afternoon. Received Zyprexa Zydis p.r.n. at 3.30 p.m. He is frequently getting into the room of other male patients, oblivious to what he is doing. Review of Systems: No CV, , pulmonary, eye, ENT system symptoms on review. Reliability poor. Mental Status Exam: The patient is oriented to himself. Insight and judgment, recent and remote memory, attention and concentration, fund of knowledge is poor consistent with his diagnoses. Laboratory Data: Reviewed. Impression: Major neurocognitive disorder Alzheimer vascular with delusion, depression, and behavioral disturbance. Anxiety disorder unspecified. Impulse control disorder unspecified. PTSD. Plan: Continue current psychotropics. Reduce the Prazosin from 3mg h.s. to 2 mg h.s. Make further adjustments in his psychotropics as clinically indicated. Assessment: Vital Signs/I&O: Vital Signs Date Time Temp Pulse Resp B/P (MAP) Pulse Ox O2 Delivery O2 Flow Rate FiO2 10/09/20 06:35 98.4 77 16 96/63 (74) 98 10/04/20 16:06 Room Air I & O 10/08/20 10/08/20 10/09/20 15:00 23:00 07:00 Intake Total 720 ml 480 ml Balance 720 ml 480 ml Current Medications: Meds: Current Medications Medications (Trade) Dose Ordered Sig/Abundio Route PRN Reason Start Time Stop Time Status Last Admin Dose Admin Acetaminophen (Tylenol) 650 mg PRN Q6HRS PRN PO MILD PAIN / TEMP > 100.3'F 09/17/20 15:30 09/21/20 07:53 DC 09/20/20 20:31 Multi-Ingredient Ointment (Analgesic [place]) 1 will PRN QID PRN TP MUSCLE PAIN 09/17/20 15:30 Al Hydroxide/Mg Hydroxide (Mylanta Plus Xs) 15 ml PRN AFTMEALHC PRN PO DYSPEPSIA 09/17/20 15:30 Magnesium Hydroxide (Milk Of Magnesia) 2,400 mg PRN QHS PRN PO 1st choice CONSTIPATION 09/17/20 15:30 09/22/20 22:26 Acetaminophen (Tylenol) 650 mg BID PO 09/17/20 21:00 10/09/20 08:01 Acetaminophen (Tylenol) 650 mg PRN Q6HRS PRN PO MILD PAIN 1-3/ TEMP 09/17/20 16:15 Aspirin (Aspirin Chewable) 81 mg DAILY PO 09/18/20 09:00 10/09/20 08:00 Atorvastatin Calcium (Lipitor) 10 mg QHS PO 09/17/20 21:00 10/08/20 20:08 Bisacodyl (Dulcolax Supp) 10 mg PRN DAILY PRN RC 2nd choice CONSTIPATION 09/17/20 16:15 Diclofenac Sodium (Voltaren) 1 will PRN Q8HRS PRN TP MUSCLE PAIN 09/17/20 16:15 Divalproex Sodium (Depakote Er) 750 mg QHS PO 09/17/20 21:00 09/23/20 18:19 DC 09/22/20 20:42 Lorazepam (Ativan) 0.5 mg PRN BID PRN PO 1ST CHOICE ANXIETY 09/17/20 16:15 10/07/20 17:29 Mirtazapine (Remeron) 15 mg QHS PO 09/17/20 21:00 10/08/20 20:08 Olanzapine (ZyPREXA ZYDIS) 2.5 mg PRN Q2HR PRN PO 2ND CHOICE ANXIETY / AGITATION 09/17/20 16:15 10/08/20 17:11 Oxycodone/ Acetaminophen (Percocet 7.5/ 325) 1 tab PRN Q8HRS PRN PO MOD-SEVERE PAIN 09/17/20 16:15 10/07/20 20:26 Artificial Tears (Artificial Tears) 1 drop PRN Q15MIN PRN OU DRY EYE 09/17/20 16:15 Prazosin HCl (Minipress) 3 mg QHS PO 09/17/20 21:00 10/08/20 22:34 DC 10/07/20 20:01 Quetiapine Fumarate (SEROquel) 37.5 mg 0900,1300,1700 PO 09/17/20 17:00 09/22/20 18:34 DC 09/22/20 16:14 Quetiapine Fumarate (SEROquel) 50 mg PRN DAILY PRN PO 3RD CHOICE ANXIETY / AGITATION 09/17/20 16:15 Quetiapine Fumarate (SEROquel) 100 mg QHS PO 09/17/20 21:00 09/22/20 18:34 DC 09/21/20 20:53 Sertraline HCl (Zoloft) 100 mg DAILY@1700 PO 09/17/20 17:00 10/08/20 17:11 Trazodone HCl (Desyrel) 50 mg PRN QHS PRN PO INSOMNIA, MAY REPEAT X1 09/17/20 16:15 10/08/20 20:08 Loperamide HCl (Imodium) 2 mg PRN Q15MIN PRN PO DIARRHEA 09/17/20 16:30 Multivitamins/ Calcium (Thera-M Plus) 1 tab DAILY PO 09/18/20 09:00 10/09/20 08:01 Pantoprazole Sodium (Protonix) 40 mg DAILYAC PO 09/18/20 07:30 10/09/20 08:00 Potassium Chloride (Klor-Con) 10 meq QODAY PO 09/19/20 09:00 09/23/20 11:34 DC 09/21/20 08:08 Quetiapine Fumarate (SEROquel) 75 mg QHS PO 09/22/20 21:00 10/08/20 20:08 Quetiapine Fumarate (SEROquel) 50 mg 0900,1700 PO 09/23/20 09:00 10/09/20 08:02 Quetiapine Fumarate (SEROquel) 37.5 mg 1300 PO 09/23/20 13:00 10/07/20 20:56 DC 10/07/20 12:05 Potassium Chloride (Klor-Con) 20 meq 1300 PO 09/23/20 13:00 09/23/20 19:08 DC 09/23/20 12:03 Furosemide (Lasix) 80 mg 1300 PO 09/23/20 13:00 09/23/20 19:08 DC 09/23/20 12:03 Furosemide (Lasix) 80 mg DAILY PO 09/24/20 09:00 10/02/20 17:26 DC 10/02/20 08:24 Potassium Chloride (Klor-Con) 20 meq DAILY PO 09/24/20 09:00 09/30/20 17:27 DC 09/30/20 08:27 Carbamazepine (TEGretol) 100 mg DAILY@0900,1700 PO 09/25/20 20:15 09/29/20 00:02 DC 09/28/20 17:26 Carbamazepine (TEGretol) 100 mg DAILY PO 09/29/20 09:00 10/02/20 16:45 DC 10/01/20 17:14 Carbamazepine (TEGretol) 200 mg DAILYWSUP PO 09/29/20 17:00 10/08/20 17:10 Potassium Chloride (Klor-Con) 20 meq BID PO 09/30/20 18:00 09/30/20 17:31 DC Metolazone (Zaroxolyn) 2.5 mg DAILY PO 10/01/20 09:00 10/02/20 17:26 DC 10/02/20 08:23 Potassium Chloride (Klor-Con) 20 meq BIDWMEALS PO 09/30/20 18:00 10/09/20 08:02 Carbamazepine (TEGretol) 200 mg DAILY PO 10/03/20 09:00 10/09/20 08:02 Furosemide (Lasix) 40 mg DAILY PO 10/03/20 09:00 10/09/20 08:02 Quetiapine Fumarate (SEROquel) 50 mg 1300 PO 10/07/20 13:00 10/07/20 21:01 DC Melatonin (Melatonin) 3 mg HS PO 10/07/20 21:00 10/08/20 20:08 Quetiapine Fumarate (SEROquel) 50 mg 1300 PO 10/08/20 13:00 10/08/20 13:10 Prazosin HCl (Minipress) 2 mg HS PO 10/09/20 21:00 Current Medications Medications (Trade) Dose Ordered Sig/Abundio Route PRN Reason Start Time Stop Time Status Last Admin Dose Admin Quetiapine Fumarate (SEROquel) 50 mg 1300 PO 10/08/20 13:00 10/08/20 13:10 I have reviewed the current psychotropics carefully including drug interactions. Risk benefit ratio favors no change other than as noted in my dictated progress note. Diagnosis: Problems: (1) Impulse control disorder, unspecified (2) PTSD (post-traumatic stress disorder) (3) Anxiety disorder, unspecified (4) Dementia, vascular, with depression (5) Dementia, vascular, with delusions (6) Dementia in Alzheimer's disease with depression (7) Dementia in Alzheimer's disease with delusions (8) Dementia of the Alzheimer's type with early onset with behavioral disturbance (9) Major neurocognitive disorder DUANE NINO MD Oct 09, 2020 09:03
[2020-10-09] MEDS: QUEtiapine 50 MG TABLET. PO SCH (13:24)
--- NOTE | 2020-10-09 14:56 | NUR ---
Nursing note: Pt has been pleasant, compliant with meds crushed in pudding and cooperative with his assessment. Pt denies having any pain/concerns. He is currently sitting in the day room listening and singing along to music. Will continue to monitor.
[2020-10-09 15:49] VITALS: BP 110/60
[2020-10-09] MEDS: SERTRALINE 100 MG TABLET. PO SCH (17:20)
[2020-10-09 19:24] VITALS: BP 126/66
[2020-10-09] MEDS: PRAZOSIN 1 MG CAPSULE. PO SCH (19:47)
[2020-10-09] MEDS: ATORVASTATIN CALCIUM 10 MG TABLET. PO SCH (19:48)
[2020-10-09] MEDS: traZODone 50 MG TABLET. PO PRN (19:48)
[2020-10-09] MEDS: MELATONIN 3 MG TABLET PO SCH (19:48)
[2020-10-09] MEDS: MIRTAZAPINE 15 MG TABLET PO SCH (19:48)
--- NOTE | 2020-10-09 22:46 | PDOC ---
Exam Note: Raman Note: Please also refer to the separate dictated note~for this date of service dictated separately.~Patient seen individually. Discussed the patient with Nursing staff reviewed the chart.~Reviewed interim history and current functioning. Reviewed vital signs,~Labs/ Radiology~and current medications noted below. Continue current treatment with the changes noted in the dictated addendum note Assessment: Vital Signs/I&O: Vital Signs Date Time Temp Pulse Resp B/P (MAP) Pulse Ox O2 Delivery O2 Flow Rate FiO2 10/09/20 19:47 86 126/66 10/09/20 15:49 97.4 18 97 Room Air I & O 10/08/20 10/08/20 10/09/20 13:59 21:59 05:59 Intake Total 720 ml 480 ml Balance 720 ml 480 ml Current Medications: Meds: Current Medications Medications (Trade) Dose Ordered Sig/Abundio Route PRN Reason Start Time Stop Time Status Last Admin Dose Admin Acetaminophen (Tylenol) 650 mg PRN Q6HRS PRN PO MILD PAIN / TEMP > 100.3'F 09/17/20 15:30 09/21/20 07:53 DC 09/20/20 20:31 Multi-Ingredient Ointment (Analgesic [place]) 1 will PRN QID PRN TP MUSCLE PAIN 09/17/20 15:30 Al Hydroxide/Mg Hydroxide (Mylanta Plus Xs) 15 ml PRN AFTMEALHC PRN PO DYSPEPSIA 09/17/20 15:30 Magnesium Hydroxide (Milk Of Magnesia) 2,400 mg PRN QHS PRN PO 1st choice CONSTIPATION 09/17/20 15:30 09/22/20 22:26 Acetaminophen (Tylenol) 650 mg BID PO 09/17/20 21:00 10/09/20 19:47 Acetaminophen (Tylenol) 650 mg PRN Q6HRS PRN PO MILD PAIN 1-3/ TEMP 09/17/20 16:15 Aspirin (Aspirin Chewable) 81 mg DAILY PO 09/18/20 09:00 10/09/20 08:00 Atorvastatin Calcium (Lipitor) 10 mg QHS PO 09/17/20 21:00 10/09/20 19:48 Bisacodyl (Dulcolax Supp) 10 mg PRN DAILY PRN RC 2nd choice CONSTIPATION 09/17/20 16:15 Diclofenac Sodium (Voltaren) 1 will PRN Q8HRS PRN TP MUSCLE PAIN 09/17/20 16:15 Divalproex Sodium (Depakote Er) 750 mg QHS PO 09/17/20 21:00 09/23/20 18:19 DC 09/22/20 20:42 Lorazepam (Ativan) 0.5 mg PRN BID PRN PO 1ST CHOICE ANXIETY 09/17/20 16:15 10/07/20 17:29 Mirtazapine (Remeron) 15 mg QHS PO 09/17/20 21:00 10/09/20 19:48 Olanzapine (ZyPREXA ZYDIS) 2.5 mg PRN Q2HR PRN PO 2ND CHOICE ANXIETY / AGITATION 09/17/20 16:15 10/08/20 17:11 Oxycodone/ Acetaminophen (Percocet 7.5/ 325) 1 tab PRN Q8HRS PRN PO MOD-SEVERE PAIN 09/17/20 16:15 10/07/20 20:26 Artificial Tears (Artificial Tears) 1 drop PRN Q15MIN PRN OU DRY EYE 09/17/20 16:15 Prazosin HCl (Minipress) 3 mg QHS PO 09/17/20 21:00 10/08/20 22:34 DC 10/07/20 20:01 Quetiapine Fumarate (SEROquel) 37.5 mg 0900,1300,1700 PO 09/17/20 17:00 09/22/20 18:34 DC 09/22/20 16:14 Quetiapine Fumarate (SEROquel) 50 mg PRN DAILY PRN PO 3RD CHOICE ANXIETY / AGITATION 09/17/20 16:15 Quetiapine Fumarate (SEROquel) 100 mg QHS PO 09/17/20 21:00 09/22/20 18:34 DC 09/21/20 20:53 Sertraline HCl (Zoloft) 100 mg DAILY@1700 PO 09/17/20 17:00 10/09/20 17:20 Trazodone HCl (Desyrel) 50 mg PRN QHS PRN PO INSOMNIA, MAY REPEAT X1 09/17/20 16:15 10/09/20 19:48 Loperamide HCl (Imodium) 2 mg PRN Q15MIN PRN PO DIARRHEA 09/17/20 16:30 Multivitamins/ Calcium (Thera-M Plus) 1 tab DAILY PO 09/18/20 09:00 10/09/20 08:01 Pantoprazole Sodium (Protonix) 40 mg DAILYAC PO 09/18/20 07:30 10/09/20 08:00 Potassium Chloride (Klor-Con) 10 meq QODAY PO 09/19/20 09:00 09/23/20 11:34 DC 09/21/20 08:08 Quetiapine Fumarate (SEROquel) 75 mg QHS PO 09/22/20 21:00 10/09/20 19:48 Quetiapine Fumarate (SEROquel) 50 mg 0900,1700 PO 09/23/20 09:00 10/09/20 17:19 Quetiapine Fumarate (SEROquel) 37.5 mg 1300 PO 09/23/20 13:00 10/07/20 20:56 DC 10/07/20 12:05 Potassium Chloride (Klor-Con) 20 meq 1300 PO 09/23/20 13:00 09/23/20 19:08 DC 09/23/20 12:03 Furosemide (Lasix) 80 mg 1300 PO 09/23/20 13:00 09/23/20 19:08 DC 09/23/20 12:03 Furosemide (Lasix) 80 mg DAILY PO 09/24/20 09:00 10/02/20 17:26 DC 10/02/20 08:24 Potassium Chloride (Klor-Con) 20 meq DAILY PO 09/24/20 09:00 09/30/20 17:27 DC 09/30/20 08:27 Carbamazepine (TEGretol) 100 mg DAILY@0900,1700 PO 09/25/20 20:15 09/29/20 00:02 DC 09/28/20 17:26 Carbamazepine (TEGretol) 100 mg DAILY PO 09/29/20 09:00 10/02/20 16:45 DC 10/01/20 17:14 Carbamazepine (TEGretol) 200 mg DAILYWSUP PO 09/29/20 17:00 10/09/20 17:20 Potassium Chloride (Klor-Con) 20 meq BID PO 09/30/20 18:00 09/30/20 17:31 DC Metolazone (Zaroxolyn) 2.5 mg DAILY PO 10/01/20 09:00 10/02/20 17:26 DC 10/02/20 08:23 Potassium Chloride (Klor-Con) 20 meq BIDWMEALS PO 09/30/20 18:00 10/09/20 17:19 Carbamazepine (TEGretol) 200 mg DAILY PO 10/03/20 09:00 10/09/20 08:02 Furosemide (Lasix) 40 mg DAILY PO 10/03/20 09:00 10/09/20 08:02 Quetiapine Fumarate (SEROquel) 50 mg 1300 PO 10/07/20 13:00 10/07/20 21:01 DC Melatonin (Melatonin) 3 mg HS PO 10/07/20 21:00 10/09/20 19:48 Quetiapine Fumarate (SEROquel) 50 mg 1300 PO 10/08/20 13:00 10/09/20 13:24 Prazosin HCl (Minipress) 2 mg HS PO 10/09/20 21:00 10/09/20 19:47 Current Medications Medications (Trade) Dose Ordered Sig/Abundio Route PRN Reason Start Time Stop Time Status Last Admin Dose Admin Prazosin HCl (Minipress) 2 mg HS PO 10/09/20 21:00 10/09/20 19:47 I have reviewed the current psychotropics carefully including drug interactions. Risk benefit ratio favors no change other than as noted in my dictated progress note. Diagnosis: Problems: (1) Impulse control disorder, unspecified (2) PTSD (post-traumatic stress disorder) (3) Anxiety disorder, unspecified (4) Dementia, vascular, with depression (5) Dementia, vascular, with delusions (6) Dementia in Alzheimer's disease with depression (7) Dementia in Alzheimer's disease with delusions (8) Dementia of the Alzheimer's type with early onset with behavioral disturbance (9) Major neurocognitive disorder DUANE NINO MD Oct 09, 2020 22:46
--- NOTE | 2020-10-10 00:04 | NUR ---
Pt sitting quietly in the hallway when approached. Pt calm, pleasantly confused, disorganized, and delusional this evening- pt reported that he was going off to fight in the war. Pt cooperative with assessment and compliant with medications administered crushed in pudding. No agitation or aggression noted thus far this shift.
[2020-10-10 06:37] VITALS: BP 113/66
[2020-10-10] MEDS: PANTOPRAZOLE 40 MG TABLET. PO SCH (07:39)
[2020-10-10] MEDS: carBAMazepine 200 MG TABLET PO SCH ×2 (07:39→17:19)
[2020-10-10] MEDS: FUROSEMIDE 40 MG TABLET PO SCH (07:39)
[2020-10-10] MEDS: POTASSIUM CHLORIDE 20 MEQ TABLET.ER. PO SCH ×2 (07:39→17:18)
[2020-10-10] MEDS: ACETAMINOPHEN 325 MG TABLET PO SCH ×2 (07:40→20:41)
[2020-10-10] MEDS: ASPIRIN CHEWABLE 81 MG TABLET. PO SCH (07:40)
[2020-10-10] MEDS: MULTIVITAMIN with MINERAL TABLET. PO SCH (07:40)
[2020-10-10] MEDS: QUEtiapine 25 MG TABLET. PO SCH ×3 (07:40→20:41)
[2020-10-10] MEDS: QUEtiapine 50 MG TABLET. PO SCH (12:30)
--- NOTE | 2020-10-10 14:13 | NUR ---
Nursing note: Pt irritable at shift change, dumping out the contents of his trash onto the hallway floor. He had increased agitation with redirection. Pt is very resistive with meds crushed in pudding. Pt ate a very small bite and when encouraged to take the entire spoonful, he then spat the rest of the pudding onto the floor. He has been looking for the girls and boys "Hilda" and "Carrillo" to get them to play football. Pt is currently sitting in the hallway socializing with staff and peers. Will continue to monitor.
[2020-10-10 15:23] VITALS: BP 117/74
[2020-10-10] MEDS: SERTRALINE 100 MG TABLET. PO SCH (17:19)
[2020-10-10] MEDS: MIRTAZAPINE 15 MG TABLET PO SCH (20:40)
[2020-10-10] MEDS: MELATONIN 3 MG TABLET PO SCH (20:41)
[2020-10-10] MEDS: ATORVASTATIN CALCIUM 10 MG TABLET. PO SCH (20:41)
[2020-10-10] MEDS: PRAZOSIN 1 MG CAPSULE. PO SCH (20:41)
[2020-10-10] MEDS: traZODone 50 MG TABLET. PO PRN (20:42)
--- NOTE | 2020-10-10 21:56 | PDOC ---
Exam Note: Raman Note: Please also refer to the separate dictated note~for this date of service dictated separately.~Patient seen individually. Discussed the patient with Nursing staff reviewed the chart.~Reviewed interim history and current functioning. Reviewed vital signs,~Labs/ Radiology~and current medications noted below. Continue current treatment with the changes noted in the dictated addendum note Assessment: Vital Signs/I&O: Vital Signs Date Time Temp Pulse Resp B/P (MAP) Pulse Ox O2 Delivery O2 Flow Rate FiO2 10/10/20 20:41 88 117/74 10/10/20 15:23 97.9 18 95 10/09/20 15:49 Room Air I & O 10/09/20 10/09/20 10/10/20 14:00 22:00 06:00 Intake Total 700 ml 350 ml 240 ml Balance 700 ml 350 ml 240 ml Current Medications: Meds: Current Medications Medications (Trade) Dose Ordered Sig/Abundio Route PRN Reason Start Time Stop Time Status Last Admin Dose Admin Acetaminophen (Tylenol) 650 mg PRN Q6HRS PRN PO MILD PAIN / TEMP > 100.3'F 09/17/20 15:30 09/21/20 07:53 DC 09/20/20 20:31 Multi-Ingredient Ointment (Analgesic [place]) 1 will PRN QID PRN TP MUSCLE PAIN 09/17/20 15:30 Al Hydroxide/Mg Hydroxide (Mylanta Plus Xs) 15 ml PRN AFTMEALHC PRN PO DYSPEPSIA 09/17/20 15:30 Magnesium Hydroxide (Milk Of Magnesia) 2,400 mg PRN QHS PRN PO 1st choice CONSTIPATION 09/17/20 15:30 09/22/20 22:26 Acetaminophen (Tylenol) 650 mg BID PO 09/17/20 21:00 10/10/20 20:41 Acetaminophen (Tylenol) 650 mg PRN Q6HRS PRN PO MILD PAIN 1-3/ TEMP 09/17/20 16:15 Aspirin (Aspirin Chewable) 81 mg DAILY PO 09/18/20 09:00 10/10/20 07:40 Atorvastatin Calcium (Lipitor) 10 mg QHS PO 09/17/20 21:00 10/10/20 20:41 Bisacodyl (Dulcolax Supp) 10 mg PRN DAILY PRN RC 2nd choice CONSTIPATION 09/17/20 16:15 Diclofenac Sodium (Voltaren) 1 will PRN Q8HRS PRN TP MUSCLE PAIN 09/17/20 16:15 Divalproex Sodium (Depakote Er) 750 mg QHS PO 09/17/20 21:00 09/23/20 18:19 DC 09/22/20 20:42 Lorazepam (Ativan) 0.5 mg PRN BID PRN PO 1ST CHOICE ANXIETY 09/17/20 16:15 10/07/20 17:29 Mirtazapine (Remeron) 15 mg QHS PO 09/17/20 21:00 10/10/20 20:40 Olanzapine (ZyPREXA ZYDIS) 2.5 mg PRN Q2HR PRN PO 2ND CHOICE ANXIETY / AGITATION 09/17/20 16:15 10/08/20 17:11 Oxycodone/ Acetaminophen (Percocet 7.5/ 325) 1 tab PRN Q8HRS PRN PO MOD-SEVERE PAIN 09/17/20 16:15 10/07/20 20:26 Artificial Tears (Artificial Tears) 1 drop PRN Q15MIN PRN OU DRY EYE 09/17/20 16:15 Prazosin HCl (Minipress) 3 mg QHS PO 09/17/20 21:00 10/08/20 22:34 DC 10/07/20 20:01 Quetiapine Fumarate (SEROquel) 37.5 mg 0900,1300,1700 PO 09/17/20 17:00 09/22/20 18:34 DC 09/22/20 16:14 Quetiapine Fumarate (SEROquel) 50 mg PRN DAILY PRN PO 3RD CHOICE ANXIETY / AGITATION 09/17/20 16:15 Quetiapine Fumarate (SEROquel) 100 mg QHS PO 09/17/20 21:00 09/22/20 18:34 DC 09/21/20 20:53 Sertraline HCl (Zoloft) 100 mg DAILY@1700 PO 09/17/20 17:00 10/10/20 17:19 Trazodone HCl (Desyrel) 50 mg PRN QHS PRN PO INSOMNIA, MAY REPEAT X1 09/17/20 16:15 10/10/20 20:42 Loperamide HCl (Imodium) 2 mg PRN Q15MIN PRN PO DIARRHEA 09/17/20 16:30 Multivitamins/ Calcium (Thera-M Plus) 1 tab DAILY PO 09/18/20 09:00 10/10/20 07:40 Pantoprazole Sodium (Protonix) 40 mg DAILYAC PO 09/18/20 07:30 10/10/20 07:39 Potassium Chloride (Klor-Con) 10 meq QODAY PO 09/19/20 09:00 09/23/20 11:34 DC 09/21/20 08:08 Quetiapine Fumarate (SEROquel) 75 mg QHS PO 09/22/20 21:00 10/10/20 20:41 Quetiapine Fumarate (SEROquel) 50 mg 0900,1700 PO 09/23/20 09:00 10/10/20 17:19 Quetiapine Fumarate (SEROquel) 37.5 mg 1300 PO 09/23/20 13:00 10/07/20 20:56 DC 10/07/20 12:05 Potassium Chloride (Klor-Con) 20 meq 1300 PO 09/23/20 13:00 09/23/20 19:08 DC 09/23/20 12:03 Furosemide (Lasix) 80 mg 1300 PO 09/23/20 13:00 09/23/20 19:08 DC 09/23/20 12:03 Furosemide (Lasix) 80 mg DAILY PO 09/24/20 09:00 10/02/20 17:26 DC 10/02/20 08:24 Potassium Chloride (Klor-Con) 20 meq DAILY PO 09/24/20 09:00 09/30/20 17:27 DC 09/30/20 08:27 Carbamazepine (TEGretol) 100 mg DAILY@0900,1700 PO 09/25/20 20:15 09/29/20 00:02 DC 09/28/20 17:26 Carbamazepine (TEGretol) 100 mg DAILY PO 09/29/20 09:00 10/02/20 16:45 DC 10/01/20 17:14 Carbamazepine (TEGretol) 200 mg DAILYWSUP PO 09/29/20 17:00 10/10/20 17:19 Potassium Chloride (Klor-Con) 20 meq BID PO 09/30/20 18:00 09/30/20 17:31 DC Metolazone (Zaroxolyn) 2.5 mg DAILY PO 10/01/20 09:00 10/02/20 17:26 DC 10/02/20 08:23 Potassium Chloride (Klor-Con) 20 meq BIDWMEALS PO 09/30/20 18:00 10/10/20 17:18 Carbamazepine (TEGretol) 200 mg DAILY PO 10/03/20 09:00 10/10/20 07:39 Furosemide (Lasix) 40 mg DAILY PO 10/03/20 09:00 10/10/20 07:39 Quetiapine Fumarate (SEROquel) 50 mg 1300 PO 10/07/20 13:00 10/07/20 21:01 DC Melatonin (Melatonin) 3 mg HS PO 10/07/20 21:00 10/10/20 20:41 Quetiapine Fumarate (SEROquel) 50 mg 1300 PO 10/08/20 13:00 10/10/20 12:30 Prazosin HCl (Minipress) 2 mg HS PO 10/09/20 21:00 10/10/20 20:41 I have reviewed the current psychotropics carefully including drug interactions. Risk benefit ratio favors no change other than as noted in my dictated progress note. Diagnosis: Problems: (1) Impulse control disorder, unspecified (2) PTSD (post-traumatic stress disorder) (3) Anxiety disorder, unspecified (4) Dementia, vascular, with depression (5) Dementia, vascular, with delusions (6) Dementia in Alzheimer's disease with depression (7) Dementia in Alzheimer's disease with delusions (8) Dementia of the Alzheimer's type with early onset with behavioral d isturbance (9) Major neurocognitive disorder DUANE NINO MD Oct 10, 2020 21:56
--- NOTE | 2020-10-10 22:00 | NUR ---
Patient was wandering in the hallway early in the shift. Patient has had multiple snacks and continues to tell staff he is hungry. PRN trazodone given with HS meds for insomnia. Patient compliant with his medications crushed in pudding, he went to bed without incident. Will continue to monitor.
[2020-10-11 05:18] VITALS: BP 118/72
[2020-10-11] MEDS: PANTOPRAZOLE 40 MG TABLET. PO SCH (08:26)
[2020-10-11] MEDS: MULTIVITAMIN with MINERAL TABLET. PO SCH (08:26)
[2020-10-11] MEDS: ACETAMINOPHEN 325 MG TABLET PO SCH ×2 (08:26→20:06)
[2020-10-11] MEDS: FUROSEMIDE 40 MG TABLET PO SCH (08:26)
[2020-10-11] MEDS: ASPIRIN CHEWABLE 81 MG TABLET. PO SCH (08:26)
[2020-10-11] MEDS: carBAMazepine 200 MG TABLET PO SCH ×2 (08:27→17:16)
[2020-10-11] MEDS: POTASSIUM CHLORIDE 20 MEQ TABLET.ER. PO SCH ×2 (08:27→17:16)
[2020-10-11] MEDS: QUEtiapine 25 MG TABLET. PO SCH ×3 (08:27→20:06)
--- NOTE | 2020-10-11 10:59 | NUR ---
WEEKLY ACTIVITY THERAPY NOTE Date of Admission: 09/17/20 Date of AT Assessment: 09/20 Precipitating behaviors that initiated intake and admission: Pt continuing his stay for multiple behaviors from the skilled unit stay. Pt is intermittently combative and confused. Goal aimed: increase stimulation Initial Goal:Pt. will participate in at lease five Activity Therapy groups or individual sessions before discharge Goal repeated 10/04 Weekly progress towards goal: achieved, 09/24-music and patio and leisure would you rather, 09/25 Lazy day:practice relaxation, 09/26-dance and social hour, 09/26-songs and states, 10/02- Patio and music) Group participation level: achieved, 07/21 Weekly highlights: music and dancing afternoon, listened and danced to music Thursday, participated in a couple of exercises Thursday Behaviors observed: pleasantly confused, enjoys singing and dancing Plan: no change to goal- pending discharge- Pt will participate in at least five individual or group Activity Therapy sessions per week.- if discharge date changes Beneficial adaptations: music, socialization
--- NOTE | 2020-10-11 11:14 | NUR ---
Pt has been very social today with other pts on the unit and with staff. He has been singing and telling life stories and wandering throughout the unit. Pt is pleasantly confused and easily distracted. He is medication compliant. Pt target discharge date is next Thursday.
--- NOTE | 2020-10-11 11:33 | TX PLAN ---
Interdisciplinary Tx Plan Admission Information Sep 17, 2020 at 13:40 Legal Status (on Admission): Voluntary, DPOA DPOA/Guardian Name: Heidy [place]- Contact Other Contact Name: Caryl Other Contact Verified Code Status: DNR Allergies: Coded Allergies: No Known Drug Allergies (Unverified , 08/28/20) Estimated Length of Stay: 14 Diagnoses Primary Diagnosis: Major neurocognitive disorder, vascular alzheimers with delusions BD; Anxiety d/o unspecified; Impulse control d/o Reasons for Admission: Aggressive, Agitated, Combative, Suspicious/paranoid, Poor impulse control Problem in Patient's Words: Per POA, as noted above. Problems Active Problems: Aggressive Agitated Combative Wandering Confused Paranoid Inactive Problems: Medication compliant Averaging 80% of meal intakes Averaging 7 hours of sleep Pt Strengths/Limitations Ability for [place]: Poor Cognitive Functioning/Ability: Poor Communication Skills/Ability: Fair Financial Resources: Fair Insight/Judgement: Poor Intellectual Ability: Fair Physical Health: Fair Social Skills: Fair Stability in Family: Good Verbal Skills: Fair Discharge Criteria Discharge Criteria: Adequate arrangements @DC, Improved behavior, Improved mood/thought Preliminary Discharge Plan Preliminary DC Plan: Memory Care Other Arrangements: [facility] Special Precautions Special Precautions: Agitation/Assault Fall Risk: High Initial D/C Plan Return to [facility] Identified Discharge Needs: Out patient psychiatry if available, restorative therapy program, activites to occupy time, allow adequate time for Eric to process and respond. Currently Utilized Resources Currently Utilized Resources/P: PCP 24 hour memory care Referrals Community Resources: [facility] Identified Problems/Hx/Goals Objectives/Short-Term Goals Short Term Goals: Control abnormal behavior, Dec. Aggression, Dec. Outbursts, Medication Stabilization, Prevent Deterioration Short Term Goals in Patient's: Per POA, for Eric to "be at peace, be able to sleep at night, and have increased intake." Interventions/Frequency Staff Interventions/Frequency&: Nursing to provide routine safety checks, medication administration, and adl support. Psychiatry to see three times weekly. SW to see twice weekly. SW and recreational groups as Eric allows. PT/OT eval and treat as indicated. 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 Social: Eric has enjoyed fishing and hunting. Education: Eric graduated high school and attended some college. Community Follow-up PCP [facility] Community Provider/Family Inpu: Heidy (/POA) and Shauna (daughter) participated in team meeting this date. Tentative d/c date mid next week. Treatment Plan Explained Patient/Wardrobe Stylist had this treatment plan explained to him/her as indicated by the signature below and has been given the opportunity to ask questions and make suggestions: Date: Patient/Wardrobe Stylist Signature: Status Update Update WEEKLY UPDATE/NOTE: Eric is averaging 10% of meal intakes and 5.75 hours of sleep at night. Trazadone has been given for sleep with good results. Eric has been in good spirits recently and flirtatious at times. He is oriented to himself only. Eric requires close supervision for safety. Eric has been medication complaint with meds crushed in applesauce. Eric has been involved in six recreational groups and particularly enjoys singing and dancing. Tentative d/c late this week to early next week. SW attempted to reach Heidy, , to participate in team meeting. Heidy was in therapy for recent hip fracture so SW will update at later time. SW will fax current notes, medication list, and labs to [facility] to coordinate upcoming d/c. MARYBEL MARQUEZ Oct 11, 2020 11:33
[2020-10-11] MEDS: QUEtiapine 50 MG TABLET. PO SCH (12:28)
--- NOTE | 2020-10-11 16:12 | NUR ---
RENE provided update to Heidy, /POA, who was unable to participate in team meeting this morning. Heidy spoke with Eric on the phone yesterday and reported him to be confused but sounded good and was in pleasant spirits. RENE will fax current notes, medication list, and labs to [facility] for review with tentative d/c date of 10/16/20.
[2020-10-11 16:23] VITALS: BP 125/72
[2020-10-11] MEDS: SERTRALINE 100 MG TABLET. PO SCH (17:16)
--- NOTE | 2020-10-11 20:00 | NUR ---
Patient has been door checking and exit seeking tonight. He was able to be redirected with a snack. Patient is delusional and believes that a female peer is his . He has not been inappropriate with her, he is walking with her and attempting to share his snacks/drinks with her. Patient compliant with medications given crushed and hidden in snack.
[2020-10-11] MEDS: MIRTAZAPINE 15 MG TABLET PO SCH (20:06)
[2020-10-11] MEDS: MELATONIN 3 MG TABLET PO SCH (20:06)
[2020-10-11] MEDS: ATORVASTATIN CALCIUM 10 MG TABLET. PO SCH (20:06)
[2020-10-11] MEDS: PRAZOSIN 1 MG CAPSULE. PO SCH (20:06)
--- NOTE | 2020-10-11 22:02 | PDOC ---
Exam Note: Raman Note: Please also refer to the separate dictated note~for this date of service dictated separately.~Patient seen individually. Discussed the patient with Nursing staff reviewed the chart.~Reviewed interim history and current functioning. Reviewed vital signs,~Labs/ Radiology~and current medications noted below. Continue current treatment with the changes noted in the dictated addendum note Assessment: Vital Signs/I&O: Vital Signs Date Time Temp Pulse Resp B/P (MAP) Pulse Ox O2 Delivery O2 Flow Rate FiO2 10/11/20 20:06 70 125/72 10/11/20 16:23 97.6 16 94 10/11/20 05:18 Room Air I & O 10/10/20 10/10/20 10/11/20 14:00 22:00 06:00 Intake Total 480 ml 620 ml Balance 480 ml 620 ml Current Medications: Meds: Current Medications Medications (Trade) Dose Ordered Sig/Abundio Route PRN Reason Start Time Stop Time Status Last Admin Dose Admin Acetaminophen (Tylenol) 650 mg PRN Q6HRS PRN PO MILD PAIN / TEMP > 100.3'F 09/17/20 15:30 09/21/20 07:53 DC 09/20/20 20:31 Multi-Ingredient Ointment (Analgesic [place]) 1 will PRN QID PRN TP MUSCLE PAIN 09/17/20 15:30 Al Hydroxide/Mg Hydroxide (Mylanta Plus Xs) 15 ml PRN AFTMEALHC PRN PO DYSPEPSIA 09/17/20 15:30 Magnesium Hydroxide (Milk Of Magnesia) 2,400 mg PRN QHS PRN PO 1st choice CONSTIPATION 09/17/20 15:30 09/22/20 22:26 Acetaminophen (Tylenol) 650 mg BID PO 09/17/20 21:00 10/11/20 20:06 Acetaminophen (Tylenol) 650 mg PRN Q6HRS PRN PO MILD PAIN 1-3/ TEMP 09/17/20 16:15 Aspirin (Aspirin Chewable) 81 mg DAILY PO 09/18/20 09:00 10/11/20 08:26 Atorvastatin Calcium (Lipitor) 10 mg QHS PO 09/17/20 21:00 10/11/20 20:06 Bisacodyl (Dulcolax Supp) 10 mg PRN DAILY PRN RC 2nd choice CONSTIPATION 09/17/20 16:15 Diclofenac Sodium (Voltaren) 1 will PRN Q8HRS PRN TP MUSCLE PAIN 09/17/20 16:15 Divalproex Sodium (Depakote Er) 750 mg QHS PO 09/17/20 21:00 09/23/20 18:19 DC 09/22/20 20:42 Lorazepam (Ativan) 0.5 mg PRN BID PRN PO 1ST CHOICE ANXIETY 09/17/20 16:15 10/07/20 17:29 Mirtazapine (Remeron) 15 mg QHS PO 09/17/20 21:00 10/11/20 20:06 Olanzapine (ZyPREXA ZYDIS) 2.5 mg PRN Q2HR PRN PO 2ND CHOICE ANXIETY / AGITATION 09/17/20 16:15 10/08/20 17:11 Oxycodone/ Acetaminophen (Percocet 7.5/ 325) 1 tab PRN Q8HRS PRN PO MOD-SEVERE PAIN 09/17/20 16:15 10/07/20 20:26 Artificial Tears (Artificial Tears) 1 drop PRN Q15MIN PRN OU DRY EYE 09/17/20 16:15 Prazosin HCl (Minipress) 3 mg QHS PO 09/17/20 21:00 10/08/20 22:34 DC 10/07/20 20:01 Quetiapine Fumarate (SEROquel) 37.5 mg 0900,1300,1700 PO 09/17/20 17:00 09/22/20 18:34 DC 09/22/20 16:14 Quetiapine Fumarate (SEROquel) 50 mg PRN DAILY PRN PO 3RD CHOICE ANXIETY / AGITATION 09/17/20 16:15 Quetiapine Fumarate (SEROquel) 100 mg QHS PO 09/17/20 21:00 09/22/20 18:34 DC 09/21/20 20:53 Sertraline HCl (Zoloft) 100 mg DAILY@1700 PO 09/17/20 17:00 10/11/20 17:16 Trazodone HCl (Desyrel) 50 mg PRN QHS PRN PO INSOMNIA, MAY REPEAT X1 09/17/20 16:15 10/10/20 20:42 Loperamide HCl (Imodium) 2 mg PRN Q15MIN PRN PO DIARRHEA 09/17/20 16:30 Multivitamins/ Calcium (Thera-M Plus) 1 tab DAILY PO 09/18/20 09:00 10/11/20 08:26 Pantoprazole Sodium (Protonix) 40 mg DAILYAC PO 09/18/20 07:30 10/11/20 08:26 Potassium Chloride (Klor-Con) 10 meq QODAY PO 09/19/20 09:00 09/23/20 11:34 DC 09/21/20 08:08 Quetiapine Fumarate (SEROquel) 75 mg QHS PO 09/22/20 21:00 10/11/20 20:06 Quetiapine Fumarate (SEROquel) 50 mg 0900,1700 PO 09/23/20 09:00 10/11/20 17:16 Quetiapine Fumarate (SEROquel) 37.5 mg 1300 PO 09/23/20 13:00 10/07/20 20:56 DC 10/07/20 12:05 Potassium Chloride (Klor-Con) 20 meq 1300 PO 09/23/20 13:00 09/23/20 19:08 DC 09/23/20 12:03 Furosemide (Lasix) 80 mg 1300 PO 09/23/20 13:00 09/23/20 19:08 DC 09/23/20 12:03 Furosemide (Lasix) 80 mg DAILY PO 09/24/20 09:00 10/02/20 17:26 DC 10/02/20 08:24 Potassium Chloride (Klor-Con) 20 meq DAILY PO 09/24/20 09:00 09/30/20 17:27 DC 09/30/20 08:27 Carbamazepine (TEGretol) 100 mg DAILY@0900,1700 PO 09/25/20 20:15 09/29/20 00:02 DC 09/28/20 17:26 Carbamazepine (TEGretol) 100 mg DAILY PO 09/29/20 09:00 10/02/20 16:45 DC 10/01/20 17:14 Carbamazepine (TEGretol) 200 mg DAILYWSUP PO 09/29/20 17:00 10/11/20 17:16 Potassium Chloride (Klor-Con) 20 meq BID PO 09/30/20 18:00 09/30/20 17:31 DC Metolazone (Zaroxolyn) 2.5 mg DAILY PO 10/01/20 09:00 10/02/20 17:26 DC 10/02/20 08:23 Potassium Chloride (Klor-Con) 20 meq BIDWMEALS PO 09/30/20 18:00 10/11/20 17:16 Carbamazepine (TEGretol) 200 mg DAILY PO 10/03/20 09:00 10/11/20 08:27 Furosemide (Lasix) 40 mg DAILY PO 10/03/20 09:00 10/11/20 08:26 Quetiapine Fumarate (SEROquel) 50 mg 1300 PO 10/07/20 13:00 10/07/20 21:01 DC Melatonin (Melatonin) 3 mg HS PO 10/07/20 21:00 10/11/20 20:06 Quetiapine Fumarate (SEROquel) 50 mg 1300 PO 10/08/20 13:00 10/11/20 12:28 Prazosin HCl (Minipress) 2 mg HS PO 10/09/20 21:00 10/11/20 20:06 I have reviewed the current psychotropics carefully including drug interactions. Risk benefit ratio favors no change other than as noted in my dictated progress note. Diagnosis: Problems: (1) Impulse control disorder, unspecified (2) PTSD (post-traumatic stress disorder) (3) Anxiety disorder, unspecified (4) Dementia, vascular, with depression (5) Dementia, vascular, with delusions (6) Dementia in Alzheimer's disease with depression (7) Dementia in Alzheimer's disease with delusions (8) Dementia of the Alzheimer's type with early onset with behavioral disturbance (9) Major neurocognitive disorder DUANE NINO MD Oct 11, 2020 22:02
--- NOTE | 2020-10-11 22:02 | PDOC ---
Exam Note: Raman Note: This note is a late entry for 10/09/2020 covers elements not covered in my initial note. Subjective: The patient was seen face to face in the evening of 10/09/2020 with Andreia MONTEMAYOR, discussed and reviewed the chart. The patient slept 7 hours previous night. Reportedly the patient remains confused, had had a good day. He has been pleasant, has been singing in groups. He is compliant with medications. Review of Systems: No CV, , pulmonary, eye, ENT system symptoms on review. Reliability poor. Mental Status Exam: The patient is oriented to himself. Insight and judgment, recent and remote memory, attention and concentration, fund of knowledge is poor consistent with his diagnoses. Laboratory Data: Reviewed. Impression: Major neurocognitive disorder Alzheimer vascular with delusion, depression, and behavioral disturbance. Anxiety disorder unspecified. Impulse control disorder unspecified. PTSD. Plan: Continue current psychotropics. Assessment: Vital Signs/I&O: Vital Signs Date Time Temp Pulse Resp B/P (MAP) Pulse Ox O2 Delivery O2 Flow Rate FiO2 10/11/20 20:06 70 125/72 10/11/20 16:23 97.6 16 94 10/11/20 05:18 Room Air I & O 10/10/20 10/10/20 10/11/20 14:00 22:00 06:00 Intake Total 480 ml 620 ml Balance 480 ml 620 ml Current Medications: Meds: Current Medications Medications (Trade) Dose Ordered Sig/Abundio Route PRN Reason Start Time Stop Time Status Last Admin Dose Admin Acetaminophen (Tylenol) 650 mg PRN Q6HRS PRN PO MILD PAIN / TEMP > 100.3'F 09/17/20 15:30 09/21/20 07:53 DC 09/20/20 20:31 Multi-Ingredient Ointment (Analgesic [place]) 1 will PRN QID PRN TP MUSCLE PAIN 09/17/20 15:30 Al Hydroxide/Mg Hydroxide (Mylanta Plus Xs) 15 ml PRN AFTMEALHC PRN PO DYSPEPSIA 09/17/20 15:30 Magnesium Hydroxide (Milk Of Magnesia) 2,400 mg PRN QHS PRN PO 1st choice CONSTIPATION 09/17/20 15:30 09/22/20 22:26 Acetaminophen (Tylenol) 650 mg BID PO 09/17/20 21:00 10/11/20 20:06 Acetaminophen (Tylenol) 650 mg PRN Q6HRS PRN PO MILD PAIN 1-3/ TEMP 09/17/20 16:15 Aspirin (Aspirin Chewable) 81 mg DAILY PO 09/18/20 09:00 10/11/20 08:26 Atorvastatin Calcium (Lipitor) 10 mg QHS PO 09/17/20 21:00 10/11/20 20:06 Bisacodyl (Dulcolax Supp) 10 mg PRN DAILY PRN RC 2nd choice CONSTIPATION 09/17/20 16:15 Diclofenac Sodium (Voltaren) 1 will PRN Q8HRS PRN TP MUSCLE PAIN 09/17/20 16:15 Divalproex Sodium (Depakote Er) 750 mg QHS PO 09/17/20 21:00 09/23/20 18:19 DC 09/22/20 20:42 Lorazepam (Ativan) 0.5 mg PRN BID PRN PO 1ST CHOICE ANXIETY 09/17/20 16:15 10/07/20 17:29 Mirtazapine (Remeron) 15 mg QHS PO 09/17/20 21:00 10/11/20 20:06 Olanzapine (ZyPREXA ZYDIS) 2.5 mg PRN Q2HR PRN PO 2ND CHOICE ANXIETY / AGITATION 09/17/20 16:15 10/08/20 17:11 Oxycodone/ Acetaminophen (Percocet 7.5/ 325) 1 tab PRN Q8HRS PRN PO MOD-SEVERE PAIN 09/17/20 16:15 10/07/20 20:26 Artificial Tears (Artificial Tears) 1 drop PRN Q15MIN PRN OU DRY EYE 09/17/20 16:15 Prazosin HCl (Minipress) 3 mg QHS PO 09/17/20 21:00 10/08/20 22:34 DC 10/07/20 20:01 Quetiapine Fumarate (SEROquel) 37.5 mg 0900,1300,1700 PO 09/17/20 17:00 09/22/20 18:34 DC 09/22/20 16:14 Quetiapine Fumarate (SEROquel) 50 mg PRN DAILY PRN PO 3RD CHOICE ANXIETY / AGITATION 09/17/20 16:15 Quetiapine Fumarate (SEROquel) 100 mg QHS PO 09/17/20 21:00 09/22/20 18:34 DC 09/21/20 20:53 Sertraline HCl (Zoloft) 100 mg DAILY@1700 PO 09/17/20 17:00 10/11/20 17:16 Trazodone HCl (Desyrel) 50 mg PRN QHS PRN PO INSOMNIA, MAY REPEAT X1 09/17/20 16:15 10/10/20 20:42 Loperamide HCl (Imodium) 2 mg PRN Q15MIN PRN PO DIARRHEA 09/17/20 16:30 Multivitamins/ Calcium (Thera-M Plus) 1 tab DAILY PO 09/18/20 09:00 10/11/20 08:26 Pantoprazole Sodium (Protonix) 40 mg DAILYAC PO 09/18/20 07:30 10/11/20 08:26 Potassium Chloride (Klor-Con) 10 meq QODAY PO 09/19/20 09:00 09/23/20 11:34 DC 09/21/20 08:08 Quetiapine Fumarate (SEROquel) 75 mg QHS PO 09/22/20 21:00 10/11/20 20:06 Quetiapine Fumarate (SEROquel) 50 mg 0900,1700 PO 09/23/20 09:00 10/11/20 17:16 Quetiapine Fumarate (SEROquel) 37.5 mg 1300 PO 09/23/20 13:00 10/07/20 20:56 DC 10/07/20 12:05 Potassium Chloride (Klor-Con) 20 meq 1300 PO 09/23/20 13:00 09/23/20 19:08 DC 09/23/20 12:03 Furosemide (Lasix) 80 mg 1300 PO 09/23/20 13:00 09/23/20 19:08 DC 09/23/20 12:03 Furosemide (Lasix) 80 mg DAILY PO 09/24/20 09:00 10/02/20 17:26 DC 10/02/20 08:24 Potassium Chloride (Klor-Con) 20 meq DAILY PO 09/24/20 09:00 09/30/20 17:27 DC 09/30/20 08:27 Carbamazepine (TEGretol) 100 mg DAILY@0900,1700 PO 09/25/20 20:15 09/29/20 00:02 DC 09/28/20 17:26 Carbamazepine (TEGretol) 100 mg DAILY PO 09/29/20 09:00 10/02/20 16:45 DC 10/01/20 17:14 Carbamazepine (TEGretol) 200 mg DAILYWSUP PO 09/29/20 17:00 10/11/20 17:16 Potassium Chloride (Klor-Con) 20 meq BID PO 09/30/20 18:00 09/30/20 17:31 DC Metolazone (Zaroxolyn) 2.5 mg DAILY PO 10/01/20 09:00 10/02/20 17:26 DC 10/02/20 08:23 Potassium Chloride (Klor-Con) 20 meq BIDWMEALS PO 09/30/20 18:00 10/11/20 17:16 Carbamazepine (TEGretol) 200 mg DAILY PO 10/03/20 09:00 10/11/20 08:27 Furosemide (Lasix) 40 mg DAILY PO 10/03/20 09:00 10/11/20 08:26 Quetiapine Fumarate (SEROquel) 50 mg 1300 PO 10/07/20 13:00 10/07/20 21:01 DC Melatonin (Melatonin) 3 mg HS PO 10/07/20 21:00 10/11/20 20:06 Quetiapine Fumarate (SEROquel) 50 mg 1300 PO 10/08/20 13:00 10/11/20 12:28 Prazosin HCl (Minipress) 2 mg HS PO 10/09/20 21:00 10/11/20 20:06 I have reviewed the current psychotropics carefully including drug interactions. Risk benefit ratio favors no change other than as noted in my dictated progress note. Diagnosis: Problems: (1) Impulse control disorder, unspecified (2) PTSD (post-traumatic stress disorder) (3) Anxiety disorder, unspecified (4) Dementia, vascular, with depression (5) Dementia, vascular, with delusions (6) Dementia in Alzheimer's disease with depression (7) Dementia in Alzheimer's disease with delusions (8) Dementia of the Alzheimer's type with early onset with behavioral disturbance (9) Major neurocognitive disorder DUANE NINO MD Oct 11, 2020 22:02
[2020-10-11] MEDS: traZODone 50 MG TABLET. PO PRN (22:37)
[2020-10-11] MEDS: oxyCODONE/APAP 7.5/325 1 TAB TABLET PO PRN (22:37)
--- NOTE | 2020-10-11 22:45 | NUR ---
Patient has been intrusive and is entering female [facility] rooms. He was easily redirected. Patient is rubbing his lower back, he appears to be having back pain. PRN oxycodone given for pain per order. PRN zyprexa given for restlessness and PRN trazodone given for insomnia. Will continue to monitor. Addendum: 10/12/20 at 0040 by PERFECTO MONTE RN Patient is sleeping in a chair in his room at this time. He does not appear to be having any pain at this time.
[2020-10-12 06:05] VITALS: BP 121/74
[2020-10-12] MEDS: ACETAMINOPHEN 325 MG TABLET PO SCH ×2 (08:19→20:17)
[2020-10-12] MEDS: carBAMazepine 200 MG TABLET PO SCH ×2 (08:20→17:17)
[2020-10-12] MEDS: QUEtiapine 25 MG TABLET. PO SCH ×3 (08:20→20:18)
[2020-10-12] MEDS: FUROSEMIDE 40 MG TABLET PO SCH (08:20)
[2020-10-12] MEDS: PANTOPRAZOLE 40 MG TABLET. PO SCH (08:20)
[2020-10-12] MEDS: ASPIRIN CHEWABLE 81 MG TABLET. PO SCH (08:20)
[2020-10-12] MEDS: MULTIVITAMIN with MINERAL TABLET. PO SCH (08:20)
[2020-10-12] MEDS: POTASSIUM CHLORIDE 20 MEQ TABLET.ER. PO SCH ×2 (08:21→17:16)
--- NOTE | 2020-10-12 08:34 | PDOC ---
Exam Note: Raman Note: This note is a late entry for 10/10/2020 covers elements not covered in my initial note. Subjective: The patient was seen face to face in the evening of 10/10/2020 with Marifer MONTEMAYOR, discussed and reviewed the chart. The patient slept 6-1/2 hours previous night. The patient has done reasonably well, somewhat irritable in the morning, dumping things into the trash cans, spitting out his medications due to odd taste. He has been obsessive, talking about wanting to play football, not sure where this comes from. Review of Systems: No CV, , pulmonary, eye, ENT system symptoms on review. Reliability poor. Mental Status Exam: The patient is oriented to himself. Insight and judgment, recent and remote memory, attention and concentration, fund of knowledge is poor consistent with his diagnoses. Laboratory Data: Reviewed. Impression: Major neurocognitive disorder Alzheimer vascular with delusion, depression, and behavioral disturbance. Anxiety disorder unspecified. Impulse control disorder unspecified. PTSD. Plan: No change from initial note. Assessment: Vital Signs/I&O: Vital Signs Date Time Temp Pulse Resp B/P (MAP) Pulse Ox O2 Delivery O2 Flow Rate FiO2 10/12/20 06:05 97.5 77 18 121/74 (90) 96 Room Air I & O 10/11/20 10/11/20 10/12/20 14:00 22:00 06:00 Intake Total 360 ml 560 ml Balance 360 ml 560 ml Current Medications: Meds: Current Medications Medications (Trade) Dose Ordered Sig/Abundio Route PRN Reason Start Time Stop Time Status Last Admin Dose Admin Acetaminophen (Tylenol) 650 mg PRN Q6HRS PRN PO MILD PAIN / TEMP > 100.3'F 09/17/20 15:30 09/21/20 07:53 DC 09/20/20 20:31 Multi-Ingredient Ointment (Analgesic [place]) 1 will PRN QID PRN TP MUSCLE PAIN 09/17/20 15:30 Al Hydroxide/Mg Hydroxide (Mylanta Plus Xs) 15 ml PRN AFTMEALHC PRN PO DYSPEPSIA 09/17/20 15:30 Magnesium Hydroxide (Milk Of Magnesia) 2,400 mg PRN QHS PRN PO 1st choice CONSTIPATION 09/17/20 15:30 09/22/20 22:26 Acetaminophen (Tylenol) 650 mg BID PO 09/17/20 21:00 10/12/20 08:19 Acetaminophen (Tylenol) 650 mg PRN Q6HRS PRN PO MILD PAIN 1-3/ TEMP 09/17/20 16:15 Aspirin (Aspirin Chewable) 81 mg DAILY PO 09/18/20 09:00 10/12/20 08:20 Atorvastatin Calcium (Lipitor) 10 mg QHS PO 09/17/20 21:00 10/11/20 20:06 Bisacodyl (Dulcolax Supp) 10 mg PRN DAILY PRN RC 2nd choice CONSTIPATION 09/17/20 16:15 Diclofenac Sodium (Voltaren) 1 will PRN Q8HRS PRN TP MUSCLE PAIN 09/17/20 16:15 Divalproex Sodium (Depakote Er) 750 mg QHS PO 09/17/20 21:00 09/23/20 18:19 DC 09/22/20 20:42 Lorazepam (Ativan) 0.5 mg PRN BID PRN PO 1ST CHOICE ANXIETY 09/17/20 16:15 10/07/20 17:29 Mirtazapine (Remeron) 15 mg QHS PO 09/17/20 21:00 10/11/20 20:06 Olanzapine (ZyPREXA ZYDIS) 2.5 mg PRN Q2HR PRN PO 2ND CHOICE ANXIETY / AGITATION 09/17/20 16:15 10/11/20 22:37 Oxycodone/ Acetaminophen (Percocet 7.5/ 325) 1 tab PRN Q8HRS PRN PO MOD-SEVERE PAIN 09/17/20 16:15 10/11/20 22:37 Artificial Tears (Artificial Tears) 1 drop PRN Q15MIN PRN OU DRY EYE 09/17/20 16:15 Prazosin HCl (Minipress) 3 mg QHS PO 09/17/20 21:00 10/08/20 22:34 DC 10/07/20 20:01 Quetiapine Fumarate (SEROquel) 37.5 mg 0900,1300,1700 PO 09/17/20 17:00 09/22/20 18:34 DC 09/22/20 16:14 Quetiapine Fumarate (SEROquel) 50 mg PRN DAILY PRN PO 3RD CHOICE ANXIETY / AGITATION 09/17/20 16:15 Quetiapine Fumarate (SEROquel) 100 mg QHS PO 09/17/20 21:00 09/22/20 18:34 DC 09/21/20 20:53 Sertraline HCl (Zoloft) 100 mg DAILY@1700 PO 09/17/20 17:00 10/11/20 17:16 Trazodone HCl (Desyrel) 50 mg PRN QHS PRN PO INSOMNIA, MAY REPEAT X1 09/17/20 16:15 10/11/20 22:37 Loperamide HCl (Imodium) 2 mg PRN Q15MIN PRN PO DIARRHEA 09/17/20 16:30 Multivitamins/ Calcium (Thera-M Plus) 1 tab DAILY PO 09/18/20 09:00 10/12/20 08:20 Pantoprazole Sodium (Protonix) 40 mg DAILYAC PO 09/18/20 07:30 10/12/20 08:20 Potassium Chloride (Klor-Con) 10 meq QODAY PO 09/19/20 09:00 09/23/20 11:34 DC 09/21/20 08:08 Quetiapine Fumarate (SEROquel) 75 mg QHS PO 09/22/20 21:00 10/11/20 20:06 Quetiapine Fumarate (SEROquel) 50 mg 0900,1700 PO 09/23/20 09:00 10/12/20 08:20 Quetiapine Fumarate (SEROquel) 37.5 mg 1300 PO 09/23/20 13:00 10/07/20 20:56 DC 10/07/20 12:05 Potassium Chloride (Klor-Con) 20 meq 1300 PO 09/23/20 13:00 09/23/20 19:08 DC 09/23/20 12:03 Furosemide (Lasix) 80 mg 1300 PO 09/23/20 13:00 09/23/20 19:08 DC 09/23/20 12:03 Furosemide (Lasix) 80 mg DAILY PO 09/24/20 09:00 10/02/20 17:26 DC 10/02/20 08:24 Potassium Chloride (Klor-Con) 20 meq DAILY PO 09/24/20 09:00 09/30/20 17:27 DC 09/30/20 08:27 Carbamazepine (TEGretol) 100 mg DAILY@0900,1700 PO 09/25/20 20:15 09/29/20 00:02 DC 09/28/20 17:26 Carbamazepine (TEGretol) 100 mg DAILY PO 09/29/20 09:00 10/02/20 16:45 DC 10/01/20 17:14 Carbamazepine (TEGretol) 200 mg DAILYWSUP PO 09/29/20 17:00 10/11/20 17:16 Potassium Chloride (Klor-Con) 20 meq BID PO 09/30/20 18:00 09/30/20 17:31 DC Metolazone (Zaroxolyn) 2.5 mg DAILY PO 10/01/20 09:00 10/02/20 17:26 DC 10/02/20 08:23 Potassium Chloride (Klor-Con) 20 meq BIDWMEALS PO 09/30/20 18:00 10/12/20 08:21 Carbamazepine (TEGretol) 200 mg DAILY PO 10/03/20 09:00 10/12/20 08:20 Furosemide (Lasix) 40 mg DAILY PO 10/03/20 09:00 10/12/20 08:20 Quetiapine Fumarate (SEROquel) 50 mg 1300 PO 10/07/20 13:00 10/07/20 21:01 DC Melatonin (Melatonin) 3 mg HS PO 10/07/20 21:00 10/11/20 20:06 Quetiapine Fumarate (SEROquel) 50 mg 1300 PO 10/08/20 13:00 10/11/20 12:28 Prazosin HCl (Minipress) 2 mg HS PO 10/09/20 21:00 10/11/20 20:06 I have reviewed the current psychotropics carefully including drug interactions. Risk benefit ratio favors no change other than as noted in my dictated progress note. Diagnosis: Problems: (1) Impulse control disorder, unspecified (2) PTSD (post-traumatic stress disorder) (3) Anxiety disorder, unspecified (4) Dementia, vascular, with depression (5) Dementia, vascular, with delusions (6) Dementia in Alzheimer's disease with depression (7) Dementia in Alzheimer's disease with delusions (8) Dementia of the Alzheimer's type with early onset with behavioral disturbance (9) Major neurocognitive disorder DUANE NINO MD Oct 12, 2020 08:34
--- NOTE | 2020-10-12 09:15 | PDOC ---
Exam Note: Raman Note: This note is a late entry for 10/11/2020 covers elements not covered in my initial note. Subjective: The patient was reviewed at treatment team meeting individually in the morning on 10/11/2020 with Chioma Gonzales (social media director), Maira, activity therapy and Lydia MONTEMAYOR, discussed and reviewed the chart. The patient slept 3-1/2 hours previous night. The patient did well during the day. He is somewhat exit seeking. He slept reasonably. He believes one of the other demented female patient on the unit is his . He takes his meds crushed nectar thickened liquids and apple sauce. Yesterday he was asking to have a female staff member in his room. He attended 6 groups in the past week. We tried to contact patients Heidy but was unsuccessful. Apparently Heidy has had a fall and is in rehab. At times the patient is a little flirtatious. Review of Systems: No CV, , pulmonary, eye, ENT system symptoms on review. Reliability poor. Mental Status Exam: The patient is oriented to himself. Insight and judgment, recent and remote memory, attention and concentration, fund of knowledge is poor consistent with his diagnoses. Laboratory Data: Reviewed. Impression: Major neurocognitive disorder Alzheimer vascular with delusion, depression, and behavioral disturbance. Anxiety disorder unspecified. Impulse control disorder unspecified. PTSD. Plan: We will see how the patient does over the weekend. Consider transition to the shelter early next week perhaps Thursday. Assessment: Vital Signs/I&O: Vital Signs Date Time Temp Pulse Resp B/P (MAP) Pulse Ox O2 Delivery O2 Flow Rate FiO2 10/12/20 06:05 97.5 77 18 121/74 (90) 96 Room Air I & O 10/11/20 10/11/20 10/12/20 14:00 22:00 06:00 Intake Total 360 ml 560 ml Balance 360 ml 560 ml Current Medications: Meds: Current Medications Medications (Trade) Dose Ordered Sig/Abundio Route PRN Reason Start Time Stop Time Status Last Admin Dose Admin Acetaminophen (Tylenol) 650 mg PRN Q6HRS PRN PO MILD PAIN / TEMP > 100.3'F 09/17/20 15:30 09/21/20 07:53 DC 09/20/20 20:31 Multi-Ingredient Ointment (Analgesic [place]) 1 will PRN QID PRN TP MUSCLE PAIN 09/17/20 15:30 Al Hydroxide/Mg Hydroxide (Mylanta Plus Xs) 15 ml PRN AFTMEALHC PRN PO DYSPEPSIA 09/17/20 15:30 Magnesium Hydroxide (Milk Of Magnesia) 2,400 mg PRN QHS PRN PO 1st choice CONSTIPATION 09/17/20 15:30 09/22/20 22:26 Acetaminophen (Tylenol) 650 mg BID PO 09/17/20 21:00 10/12/20 08:19 Acetaminophen (Tylenol) 650 mg PRN Q6HRS PRN PO MILD PAIN 1-3/ TEMP 09/17/20 16:15 Aspirin (Aspirin Chewable) 81 mg DAILY PO 09/18/20 09:00 10/12/20 08:20 Atorvastatin Calcium (Lipitor) 10 mg QHS PO 09/17/20 21:00 10/11/20 20:06 Bisacodyl (Dulcolax Supp) 10 mg PRN DAILY PRN RC 2nd choice CONSTIPATION 09/17/20 16:15 Diclofenac Sodium (Voltaren) 1 will PRN Q8HRS PRN TP MUSCLE PAIN 09/17/20 16:15 Divalproex Sodium (Depakote Er) 750 mg QHS PO 09/17/20 21:00 09/23/20 18:19 DC 09/22/20 20:42 Lorazepam (Ativan) 0.5 mg PRN BID PRN PO 1ST CHOICE ANXIETY 09/17/20 16:15 10/07/20 17:29 Mirtazapine (Remeron) 15 mg QHS PO 09/17/20 21:00 10/11/20 20:06 Olanzapine (ZyPREXA ZYDIS) 2.5 mg PRN Q2HR PRN PO 2ND CHOICE ANXIETY / AGITATION 09/17/20 16:15 10/11/20 22:37 Oxycodone/ Acetaminophen (Percocet 7.5/ 325) 1 tab PRN Q8HRS PRN PO MOD-SEVERE PAIN 09/17/20 16:15 10/11/20 22:37 Artificial Tears (Artificial Tears) 1 drop PRN Q15MIN PRN OU DRY EYE 09/17/20 16:15 Prazosin HCl (Minipress) 3 mg QHS PO 09/17/20 21:00 10/08/20 22:34 DC 10/07/20 20:01 Quetiapine Fumarate (SEROquel) 37.5 mg 0900,1300,1700 PO 09/17/20 17:00 09/22/20 18:34 DC 09/22/20 16:14 Quetiapine Fumarate (SEROquel) 50 mg PRN DAILY PRN PO 3RD CHOICE ANXIETY / AGITATION 09/17/20 16:15 Quetiapine Fumarate (SEROquel) 100 mg QHS PO 09/17/20 21:00 09/22/20 18:34 DC 09/21/20 20:53 Sertraline HCl (Zoloft) 100 mg DAILY@1700 PO 09/17/20 17:00 10/11/20 17:16 Trazodone HCl (Desyrel) 50 mg PRN QHS PRN PO INSOMNIA, MAY REPEAT X1 09/17/20 16:15 10/11/20 22:37 Loperamide HCl (Imodium) 2 mg PRN Q15MIN PRN PO DIARRHEA 09/17/20 16:30 Multivitamins/ Calcium (Thera-M Plus) 1 tab DAILY PO 09/18/20 09:00 10/12/20 08:20 Pantoprazole Sodium (Protonix) 40 mg DAILYAC PO 09/18/20 07:30 10/12/20 08:20 Potassium Chloride (Klor-Con) 10 meq QODAY PO 09/19/20 09:00 09/23/20 11:34 DC 09/21/20 08:08 Quetiapine Fumarate (SEROquel) 75 mg QHS PO 09/22/20 21:00 10/11/20 20:06 Quetiapine Fumarate (SEROquel) 50 mg 0900,1700 PO 09/23/20 09:00 10/12/20 08:20 Quetiapine Fumarate (SEROquel) 37.5 mg 1300 PO 09/23/20 13:00 10/07/20 20:56 DC 10/07/20 12:05 Potassium Chloride (Klor-Con) 20 meq 1300 PO 09/23/20 13:00 09/23/20 19:08 DC 09/23/20 12:03 Furosemide (Lasix) 80 mg 1300 PO 09/23/20 13:00 09/23/20 19:08 DC 09/23/20 12:03 Furosemide (Lasix) 80 mg DAILY PO 09/24/20 09:00 10/02/20 17:26 DC 10/02/20 08:24 Potassium Chloride (Klor-Con) 20 meq DAILY PO 09/24/20 09:00 09/30/20 17:27 DC 09/30/20 08:27 Carbamazepine (TEGretol) 100 mg DAILY@0900,1700 PO 09/25/20 20:15 09/29/20 00:02 DC 09/28/20 17:26 Carbamazepine (TEGretol) 100 mg DAILY PO 09/29/20 09:00 10/02/20 16:45 DC 10/01/20 17:14 Carbamazepine (TEGretol) 200 mg DAILYWSUP PO 09/29/20 17:00 10/11/20 17:16 Potassium Chloride (Klor-Con) 20 meq BID PO 09/30/20 18:00 09/30/20 17:31 DC Metolazone (Zaroxolyn) 2.5 mg DAILY PO 10/01/20 09:00 10/02/20 17:26 DC 10/02/20 08:23 Potassium Chloride (Klor-Con) 20 meq BIDWMEALS PO 09/30/20 18:00 10/12/20 08:21 Carbamazepine (TEGretol) 200 mg DAILY PO 10/03/20 09:00 10/12/20 08:20 Furosemide (Lasix) 40 mg DAILY PO 10/03/20 09:00 10/12/20 08:20 Quetiapine Fumarate (SEROquel) 50 mg 1300 PO 10/07/20 13:00 10/07/20 21:01 DC Melatonin (Melatonin) 3 mg HS PO 10/07/20 21:00 10/11/20 20:06 Quetiapine Fumarate (SEROquel) 50 mg 1300 PO 10/08/20 13:00 10/11/20 12:28 Prazosin HCl (Minipress) 2 mg HS PO 10/09/20 21:00 10/11/20 20:06 I have reviewed the current psychotropics carefully including drug interactions. Risk benefit ratio favors no change other than as noted in my dictated progress note. Diagnosis: Problems: (1) Impulse control disorder, unspecified (2) PTSD (post-traumatic stress disorder) (3) Anxiety disorder, unspecified (4) Dementia, vascular, with depression (5) Dementia, vascular, with delusions (6) Dementia in Alzheimer's disease with depression (7) Dementia in Alzheimer's disease with delusions (8) Dementia of the Alzheimer's type with early onset with behavioral disturbance (9) Major neurocognitive disorder DUANE NINO MD Oct 12, 2020 09:15
--- NOTE | 2020-10-12 12:33 | NUR ---
RENE left message for Jacinda, business planning director at [facility]. Faxed current notes, medication list, and labs for review. Tentative d/c on 10/16/20.
[2020-10-12] MEDS: QUEtiapine 50 MG TABLET. PO SCH (13:45)
[2020-10-12 15:34] VITALS: BP 118/60
[2020-10-12] MEDS: SERTRALINE 100 MG TABLET. PO SCH (17:17)
--- NOTE | 2020-10-12 17:39 | NUR ---
Nsg Note; Zachary has been awake and alert today. he was med compliant, crushed in pudding. he was a bit resistant with the dinner time meds, stating that they probably taste bad. I reapproached him after two minutes and he took the bite with no issues. He liked to sit in the sun in the hallway today, and preferred to be around other people today. he is confused with most of his statements, but another confused patient enjoyed spending time with him
[2020-10-12] MEDS: LORazepam 0.5 MG TABLET PO PRN (17:54)
--- NOTE | 2020-10-12 18:20 | NUR ---
Nsg Note; Zachary became mildly agitated after dinner. He was given an Ativan and redirected, after which he calmed down.
[2020-10-12] MEDS: MAGNESIUM HYDROXIDE 2,400 MG/30 ML ORAL.SUSP. PO PRN (20:16)
[2020-10-12] MEDS: MIRTAZAPINE 15 MG TABLET PO SCH (20:17)
[2020-10-12] MEDS: traZODone 50 MG TABLET. PO PRN (20:17)
[2020-10-12] MEDS: MELATONIN 3 MG TABLET PO SCH (20:18)
[2020-10-12] MEDS: ATORVASTATIN CALCIUM 10 MG TABLET. PO SCH (20:18)
[2020-10-12] MEDS: PRAZOSIN 1 MG CAPSULE. PO SCH (20:19)
--- NOTE | 2020-10-12 22:02 | PDOC ---
Exam Note: Raman Note: Please also refer to the separate dictated note~for this date of service dictated separately.~Patient seen individually. Discussed the patient with Nursing staff reviewed the chart.~Reviewed interim history and current functioning. Reviewed vital signs,~Labs/ Radiology~and current medications noted below. Continue current treatment with the changes noted in the dictated addendum note Assessment: Vital Signs/I&O: Vital Signs Date Time Temp Pulse Resp B/P (MAP) Pulse Ox O2 Delivery O2 Flow Rate FiO2 10/12/20 20:19 68 118/60 10/12/20 15:34 97.9 20 97 Room Air I & O 10/11/20 10/11/20 10/12/20 14:00 22:00 06:00 Intake Total 360 ml 560 ml Balance 360 ml 560 ml Current Medications: Meds: Current Medications Medications (Trade) Dose Ordered Sig/Abundio Route PRN Reason Start Time Stop Time Status Last Admin Dose Admin Acetaminophen (Tylenol) 650 mg PRN Q6HRS PRN PO MILD PAIN / TEMP > 100.3'F 09/17/20 15:30 09/21/20 07:53 DC 09/20/20 20:31 Multi-Ingredient Ointment (Analgesic [place]) 1 will PRN QID PRN TP 1ST CHOICE MUSCLE PAIN 09/17/20 15:30 Al Hydroxide/Mg Hydroxide (Mylanta Plus Xs) 15 ml PRN AFTMEALHC PRN PO DYSPEPSIA 09/17/20 15:30 Magnesium Hydroxide (Milk Of Magnesia) 2,400 mg PRN QHS PRN PO 1st choice CONSTIPATION 09/17/20 15:30 10/12/20 20:16 Acetaminophen (Tylenol) 650 mg BID PO 09/17/20 21:00 10/12/20 20:17 Acetaminophen (Tylenol) 650 mg PRN Q6HRS PRN PO MILD PAIN 1-3/ TEMP 09/17/20 16:15 Aspirin (Aspirin Chewable) 81 mg DAILY PO 09/18/20 09:00 10/12/20 08:20 Atorvastatin Calcium (Lipitor) 10 mg QHS PO 09/17/20 21:00 10/12/20 20:18 Bisacodyl (Dulcolax Supp) 10 mg PRN DAILY PRN RC 2nd choice CONSTIPATION 09/17/20 16:15 Diclofenac Sodium (Voltaren) 1 will PRN Q8HRS PRN TP 2ND CHOICE MUSCLE PAIN 09/17/20 16:15 Divalproex Sodium (Depakote Er) 750 mg QHS PO 09/17/20 21:00 09/23/20 18:19 DC 09/22/20 20:42 Lorazepam (Ativan) 0.5 mg PRN BID PRN PO 1ST CHOICE ANXIETY 09/17/20 16:15 10/12/20 17:54 Mirtazapine (Remeron) 15 mg QHS PO 09/17/20 21:00 10/12/20 20:17 Olanzapine (ZyPREXA ZYDIS) 2.5 mg PRN Q2HR PRN PO 2ND CHOICE ANXIETY / AGITATION 09/17/20 16:15 10/11/20 22:37 Oxycodone/ Acetaminophen (Percocet 7.5/ 325) 1 tab PRN Q8HRS PRN PO MOD-SEVERE PAIN 09/17/20 16:15 10/11/20 22:37 Artificial Tears (Artificial Tears) 1 drop PRN Q15MIN PRN OU DRY EYE 09/17/20 16:15 Prazosin HCl (Minipress) 3 mg QHS PO 09/17/20 21:00 10/08/20 22:34 DC 10/07/20 20:01 Quetiapine Fumarate (SEROquel) 37.5 mg 0900,1300,1700 PO 09/17/20 17:00 09/22/20 18:34 DC 09/22/20 16:14 Quetiapine Fumarate (SEROquel) 50 mg PRN DAILY PRN PO 3RD CHOICE ANXIETY / AGITATION 09/17/20 16:15 Quetiapine Fumarate (SEROquel) 100 mg QHS PO 09/17/20 21:00 09/22/20 18:34 DC 09/21/20 20:53 Sertraline HCl (Zoloft) 100 mg DAILY@1700 PO 09/17/20 17:00 10/12/20 17:17 Trazodone HCl (Desyrel) 50 mg PRN QHS PRN PO INSOMNIA, MAY REPEAT X1 09/17/20 16:15 10/12/20 20:17 Loperamide HCl (Imodium) 2 mg PRN Q15MIN PRN PO DIARRHEA 09/17/20 16:30 Multivitamins/ Calcium (Thera-M Plus) 1 tab DAILY PO 09/18/20 09:00 10/12/20 08:20 Pantoprazole Sodium (Protonix) 40 mg DAILYAC PO 09/18/20 07:30 10/12/20 08:20 Potassium Chloride (Klor-Con) 10 meq QODAY PO 09/19/20 09:00 09/23/20 11:34 DC 09/21/20 08:08 Quetiapine Fumarate (SEROquel) 75 mg QHS PO 09/22/20 21:00 10/12/20 20:18 Quetiapine Fumarate (SEROquel) 50 mg 0900,1700 PO 09/23/20 09:00 10/12/20 17:16 Quetiapine Fumarate (SEROquel) 37.5 mg 1300 PO 09/23/20 13:00 10/07/20 20:56 DC 10/07/20 12:05 Potassium Chloride (Klor-Con) 20 meq 1300 PO 09/23/20 13:00 09/23/20 19:08 DC 09/23/20 12:03 Furosemide (Lasix) 80 mg 1300 PO 09/23/20 13:00 09/23/20 19:08 DC 09/23/20 12:03 Furosemide (Lasix) 80 mg DAILY PO 09/24/20 09:00 10/02/20 17:26 DC 10/02/20 08:24 Potassium Chloride (Klor-Con) 20 meq DAILY PO 09/24/20 09:00 09/30/20 17:27 DC 09/30/20 08:27 Carbamazepine (TEGretol) 100 mg DAILY@0900,1700 PO 09/25/20 20:15 09/29/20 00:02 DC 09/28/20 17:26 Carbamazepine (TEGretol) 100 mg DAILY PO 09/29/20 09:00 10/02/20 16:45 DC 10/01/20 17:14 Carbamazepine (TEGretol) 200 mg DAILYWSUP PO 09/29/20 17:00 10/12/20 17:17 Potassium Chloride (Klor-Con) 20 meq BID PO 09/30/20 18:00 09/30/20 17:31 DC Metolazone (Zaroxolyn) 2.5 mg DAILY PO 10/01/20 09:00 10/02/20 17:26 DC 10/02/20 08:23 Potassium Chloride (Klor-Con) 20 meq BIDWMEALS PO 09/30/20 18:00 10/12/20 17:16 Carbamazepine (TEGretol) 200 mg DAILY PO 10/03/20 09:00 10/12/20 08:20 Furosemide (Lasix) 40 mg DAILY PO 10/03/20 09:00 10/12/20 08:20 Quetiapine Fumarate (SEROquel) 50 mg 1300 PO 10/07/20 13:00 10/07/20 21:01 DC Melatonin (Melatonin) 3 mg HS PO 10/07/20 21:00 10/12/20 20:18 Quetiapine Fumarate (SEROquel) 50 mg 1300 PO 10/08/20 13:00 10/12/20 13:45 Prazosin HCl (Minipress) 2 mg HS PO 10/09/20 21:00 10/12/20 20:19 I have reviewed the current psychotropics carefully including drug interactions. Risk benefit ratio favors no change other than as noted in my dictated progress note. Diagnosis: Problems: (1) Impulse control disorder, unspecified (2) PTSD (post-traumatic stress disorder) (3) Anxiety disorder, unspecified (4) Dementia, vascular, with depression (5) Dementia, vascular, with delusions (6) Dementia in Alzheimer's disease with depression (7) Dementia in Alzheimer's disease with delusions (8) Dementia of the Alzheimer's type with early onset with behavioral disturbance (9) Major neurocognitive disorder DUANE NINO MD Oct 12, 2020 22:01
--- NOTE | 2020-10-12 23:59 | NUR ---
Patient is wandering around the unit on assumption of care. He is in pleasant spirits, confused, disorganized. Intrusive, going in and out of other patients' rooms, difficulty following instructions to remain in the hallway or in his own room. PRN Trazodone given with HS meds, with good effect. Meds were given crushed in pudding and patient was compliant. He appears to be sleeping comfortably at present time. Will continue to monitor.
[2020-10-13 06:05] VITALS: BP 108/65
[2020-10-13 07:01] LABS: BASO # 0.1 x10^3/uL (0.0-0.2); BASO % 2 % (0-3); EOS # 0.3 x10^3/uL (0.0-0.7); EOS % 8 % (0-3); HEMATOCRIT 32.4 % (39.0-53.0); HEMOGLOBIN 10.3 g/dL (13.0-17.5); LYMPH % 23 % (24-48); MEAN CORPUSCULAR HEMOGLOBIN 28 pg (25-35); MEAN CORPUSCULAR HGB CONC 32 g/dL (31-37); MEAN CORPUSCULAR VOLUME 88 fL (79-100); MONO # 0.5 x10^3/uL (0.0-1.1); MONO % 11 % (0-9); NEUT # 2.3 x10^3uL (1.8-7.7); NEUT % 56 % (31-73); PLATELET COUNT 185 x10^3/uL (140-400); RED BLOOD COUNT 3.69 x10^6/uL (4.30-5.70); RED CELL DISTRIBUTION WIDTH 17.1 % (11.5-14.5); WHITE BLOOD COUNT 4.2 x10^3/uL (4.0-11.0)
[2020-10-13 07:13] LABS: ALBUMIN 2.9 g/dL (3.4-5.0); ALBUMIN/GLOBULIN RATIO 0.8 (1.0-1.7); CALCIUM 8.1 mg/dL (8.5-10.1); CREATININE 1.1 mg/dL (0.7-1.3); GFR 64.9; POTASSIUM 4.4 mmol/L (3.5-5.1); TOTAL BILIRUBIN 0.3 mg/dL (0.2-1.0); TOTAL PROTEIN 6.5 g/dL (6.4-8.2)
[2020-10-13] MEDS: PANTOPRAZOLE 40 MG TABLET. PO SCH (09:09)
[2020-10-13] MEDS: ACETAMINOPHEN 325 MG TABLET PO SCH ×2 (09:09→19:52)
[2020-10-13] MEDS: LORazepam 0.5 MG TABLET PO PRN (09:09)
[2020-10-13] MEDS: QUEtiapine 25 MG TABLET. PO SCH ×3 (09:10→19:53)
[2020-10-13] MEDS: FUROSEMIDE 40 MG TABLET PO SCH (09:10)
[2020-10-13] MEDS: MULTIVITAMIN with MINERAL TABLET. PO SCH (09:10)
[2020-10-13] MEDS: carBAMazepine 200 MG TABLET PO SCH ×2 (09:10→17:22)
[2020-10-13] MEDS: POTASSIUM CHLORIDE 20 MEQ TABLET.ER. PO SCH ×2 (09:10→17:25)
[2020-10-13] MEDS: ASPIRIN CHEWABLE 81 MG TABLET. PO SCH (09:11)
[2020-10-13] MEDS: QUEtiapine 50 MG TABLET. PO SCH (12:43)
[2020-10-13 15:41] VITALS: BP 113/60
[2020-10-13] MEDS: SERTRALINE 100 MG TABLET. PO SCH (17:22)
[2020-10-13] MEDS: traZODone 50 MG TABLET. PO PRN (19:51)
[2020-10-13] MEDS: MIRTAZAPINE 15 MG TABLET PO SCH (19:51)
[2020-10-13] MEDS: PRAZOSIN 1 MG CAPSULE. PO SCH (19:52)
[2020-10-13] MEDS: MELATONIN 3 MG TABLET PO SCH (19:53)
[2020-10-13] MEDS: ATORVASTATIN CALCIUM 10 MG TABLET. PO SCH (19:53)
--- NOTE | 2020-10-13 22:14 | PDOC ---
Exam Note: Raman Note: Please also refer to the separate dictated note~for this date of service dictated separately.~Patient seen individually. Discussed the patient with Nursing staff reviewed the chart.~Reviewed interim history and current functioning. Reviewed vital signs,~Labs/ Radiology~and current medications noted below. Continue current treatment with the changes noted in the dictated addendum note Assessment: Vital Signs/I&O: Vital Signs Date Time Temp Pulse Resp B/P (MAP) Pulse Ox O2 Delivery O2 Flow Rate FiO2 10/13/20 19:52 78 113/60 10/13/20 15:41 97.8 20 96 Room Air I & O 10/12/20 10/12/20 10/13/20 14:00 22:00 06:00 Intake Total 360 ml 240 ml 240 ml Balance 360 ml 240 ml 240 ml Labs: Laboratory Tests Test 10/13/20 06:37 White Blood Count 4.2 x10^3/uL (4.0-11.0) Red Blood Count 3.69 x10^6/uL (4.30-5.70) L Hemoglobin 10.3 g/dL (13.0-17.5) L Hematocrit 32.4 % (39.0-53.0) L Mean Corpuscular Volume 88 fL (79-100) Mean Corpuscular Hemoglobin 28 pg (25-35) Mean Corpuscular Hemoglobin Concent 32 g/dL (31-37) Red Cell Distribution Width 17.1 % (11.5-14.5) H Platelet Count 185 x10^3/uL (140-400) Neutrophils (%) (Auto) 56 % (31-73) Lymphocytes (%) (Auto) 23 % (24-48) L Monocytes (%) (Auto) 11 % (0-9) H Eosinophils (%) (Auto) 8 % (0-3) H Basophils (%) (Auto) 2 % (0-3) Neutrophils # (Auto) 2.3 x10^3uL (1.8-7.7) Lymphocytes # (Auto) 1.0 x10^3/uL (1.0-4.8) Monocytes # (Auto) 0.5 x10^3/uL (0.0-1.1) Eosinophils # (Auto) 0.3 x10^3/uL (0.0-0.7) Basophils # (Auto) 0.1 x10^3/uL (0.0-0.2) Sodium Level 147 mmol/L (136-145) H Potassium Level 4.4 mmol/L (3.5-5.1) Chloride Level 111 mmol/L (98-107) H Carbon Dioxide Level 31 mmol/L (21-32) Anion Gap 5 (6-14) L Blood Urea Nitrogen 32 mg/dL (8-26) H Creatinine 1.1 mg/dL (0.7-1.3) Estimated GFR (Cockcroft-Gault) 64.9 BUN/Creatinine Ratio 29 (6-20) H Glucose Level 86 mg/dL (70-99) Calcium Level 8.1 mg/dL (8.5-10.1) L Total Bilirubin 0.3 mg/dL (0.2-1.0) Aspartate Amino Transferase (AST) 19 U/L (15-37) Alanine Aminotransferase (ALT) 31 U/L (16-63) Alkaline Phosphatase 86 U/L (46-116) Total Protein 6.5 g/dL (6.4-8.2) Albumin 2.9 g/dL (3.4-5.0) L Albumin/Globulin Ratio 0.8 (1.0-1.7) L Current Medications: Meds: Laboratory Tests Test 10/13/20 06:37 White Blood Count 4.2 x10^3/uL Red Blood Count 3.69 x10^6/uL Hemoglobin 10.3 g/dL Hematocrit 32.4 % Mean Corpuscular Volume 88 fL Mean Corpuscular Hemoglobin 28 pg Mean Corpuscular Hemoglobin Concent 32 g/dL Red Cell Distribution Width 17.1 % Platelet Count 185 x10^3/uL Neutrophils (%) (Auto) 56 % Lymphocytes (%) (Auto) 23 % Monocytes (%) (Auto) 11 % Eosinophils (%) (Auto) 8 % Basophils (%) (Auto) 2 % Neutrophils # (Auto) 2.3 x10^3uL Lymphocytes # (Auto) 1.0 x10^3/uL Monocytes # (Auto) 0.5 x10^3/uL Eosinophils # (Auto) 0.3 x10^3/uL Basophils # (Auto) 0.1 x10^3/uL Sodium Level 147 mmol/L Potassium Level 4.4 mmol/L Chloride Level 111 mmol/L Carbon Dioxide Level 31 mmol/L Anion Gap 5 Blood Urea Nitrogen 32 mg/dL Creatinine 1.1 mg/dL Estimated GFR (Cockcroft-Gault) 64.9 BUN/Creatinine Ratio 29 Glucose Level 86 mg/dL Calcium Level 8.1 mg/dL Total Bilirubin 0.3 mg/dL Aspartate Amino Transf (AST/SGOT) 19 U/L Alanine Aminotransferase (ALT/SGPT) 31 U/L Alkaline Phosphatase 86 U/L Total Protein 6.5 g/dL Albumin 2.9 g/dL Albumin/Globulin Ratio 0.8 Current Medications Medications (Trade) Dose Ordered Sig/Abundio Route PRN Reason Start Time Stop Time Status Last Admin Dose Admin Acetaminophen (Tylenol) 650 mg PRN Q6HRS PRN PO MILD PAIN / TEMP > 100.3'F 09/17/20 15:30 09/21/20 07:53 DC 09/20/20 20:31 Multi-Ingredient Ointment (Analgesic [place]) 1 will PRN QID PRN TP 1ST CHOICE MUSCLE PAIN 09/17/20 15:30 Al Hydroxide/Mg Hydroxide (Mylanta Plus Xs) 15 ml PRN AFTMEALHC PRN PO DYSPEPSIA 09/17/20 15:30 Magnesium Hydroxide (Milk Of Magnesia) 2,400 mg PRN QHS PRN PO 1st choice CONSTIPATION 09/17/20 15:30 10/12/20 20:16 Acetaminophen (Tylenol) 650 mg BID PO 09/17/20 21:00 10/13/20 19:52 Acetaminophen (Tylenol) 650 mg PRN Q6HRS PRN PO MILD PAIN 1-3/ TEMP 09/17/20 16:15 Aspirin (Aspirin Chewable) 81 mg DAILY PO 09/18/20 09:00 10/13/20 09:11 Atorvastatin Calcium (Lipitor) 10 mg QHS PO 09/17/20 21:00 10/13/20 19:53 Bisacodyl (Dulcolax Supp) 10 mg PRN DAILY PRN RC 2nd choice CONSTIPATION 09/17/20 16:15 Diclofenac Sodium (Voltaren) 1 will PRN Q8HRS PRN TP 2ND CHOICE MUSCLE PAIN 09/17/20 16:15 Divalproex Sodium (Depakote Er) 750 mg QHS PO 09/17/20 21:00 09/23/20 18:19 DC 09/22/20 20:42 Lorazepam (Ativan) 0.5 mg PRN BID PRN PO 1ST CHOICE ANXIETY 09/17/20 16:15 10/13/20 09:09 Mirtazapine (Remeron) 15 mg QHS PO 09/17/20 21:00 10/13/20 19:51 Olanzapine (ZyPREXA ZYDIS) 2.5 mg PRN Q2HR PRN PO 2ND CHOICE ANXIETY / AGITATION 09/17/20 16:15 10/13/20 18:54 Oxycodone/ Acetaminophen (Percocet 7.5/ 325) 1 tab PRN Q8HRS PRN PO MOD-SEVERE PAIN 09/17/20 16:15 10/11/20 22:37 Artificial Tears (Artificial Tears) 1 drop PRN Q15MIN PRN OU DRY EYE 09/17/20 16:15 Prazosin HCl (Minipress) 3 mg QHS PO 09/17/20 21:00 10/08/20 22:34 DC 10/07/20 20:01 Quetiapine Fumarate (SEROquel) 37.5 mg 0900,1300,1700 PO 09/17/20 17:00 09/22/20 18:34 DC 09/22/20 16:14 Quetiapine Fumarate (SEROquel) 50 mg PRN DAILY PRN PO 3RD CHOICE ANXIETY / AGITATION 09/17/20 16:15 Quetiapine Fumarate (SEROquel) 100 mg QHS PO 09/17/20 21:00 09/22/20 18:34 DC 09/21/20 20:53 Sertraline HCl (Zoloft) 100 mg DAILY@1700 PO 09/17/20 17:00 10/13/20 17:22 Trazodone HCl (Desyrel) 50 mg PRN QHS PRN PO INSOMNIA, MAY REPEAT X1 09/17/20 16:15 10/13/20 19:51 Loperamide HCl (Imodium) 2 mg PRN Q15MIN PRN PO DIARRHEA 09/17/20 16:30 Multivitamins/ Calcium (Thera-M Plus) 1 tab DAILY PO 09/18/20 09:00 10/13/20 09:10 Pantoprazole Sodium (Protonix) 40 mg DAILYAC PO 09/18/20 07:30 10/13/20 09:09 Potassium Chloride (Klor-Con) 10 meq QODAY PO 09/19/20 09:00 09/23/20 11:34 DC 09/21/20 08:08 Quetiapine Fumarate (SEROquel) 75 mg QHS PO 09/22/20 21:00 10/13/20 19:53 Quetiapine Fumarate (SEROquel) 50 mg 0900,1700 PO 09/23/20 09:00 10/12/20 22:27 DC 10/12/20 17:16 Quetiapine Fumarate (SEROquel) 37.5 mg 1300 PO 09/23/20 13:00 10/07/20 20:56 DC 10/07/20 12:05 Potassium Chloride (Klor-Con) 20 meq 1300 PO 09/23/20 13:00 09/23/20 19:08 DC 09/23/20 12:03 Furosemide (Lasix) 80 mg 1300 PO 09/23/20 13:00 09/23/20 19:08 DC 09/23/20 12:03 Furosemide (Lasix) 80 mg DAILY PO 09/24/20 09:00 10/02/20 17:26 DC 10/02/20 08:24 Potassium Chloride (Klor-Con) 20 meq DAILY PO 09/24/20 09:00 09/30/20 17:27 DC 09/30/20 08:27 Carbamazepine (TEGretol) 100 mg DAILY@0900,1700 PO 09/25/20 20:15 09/29/20 00:02 DC 09/28/20 17:26 Carbamazepine (TEGretol) 100 mg DAILY PO 09/29/20 09:00 10/02/20 16:45 DC 10/01/20 17:14 Carbamazepine (TEGretol) 200 mg DAILYWSUP PO 09/29/20 17:00 10/13/20 17:22 Potassium Chloride (Klor-Con) 20 meq BID PO 09/30/20 18:00 09/30/20 17:31 DC Metolazone (Zaroxolyn) 2.5 mg DAILY PO 10/01/20 09:00 10/02/20 17:26 DC 10/02/20 08:23 Potassium Chloride (Klor-Con) 20 meq BIDWMEALS PO 09/30/20 18:00 10/13/20 17:25 Carbamazepine (TEGretol) 200 mg DAILY PO 10/03/20 09:00 10/13/20 09:10 Furosemide (Lasix) 40 mg DAILY PO 10/03/20 09:00 10/13/20 09:10 Quetiapine Fumarate (SEROquel) 50 mg 1300 PO 10/07/20 13:00 10/07/20 21:01 DC Melatonin (Melatonin) 3 mg HS PO 10/07/20 21:00 10/13/20 19:53 Quetiapine Fumarate (SEROquel) 50 mg 1300 PO 10/08/20 13:00 10/13/20 12:43 Prazosin HCl (Minipress) 2 mg HS PO 10/09/20 21:00 10/13/20 19:52 Quetiapine Fumarate (SEROquel) 62.5 mg 0900,1700 PO 10/13/20 09:00 10/13/20 17:22 Current Medications Medications (Trade) Dose Ordered Sig/Abundio Route PRN Reason Start Time Stop Time Status Last Admin Dose Admin Quetiapine Fumarate (SEROquel) 62.5 mg 0900,1700 PO 10/13/20 09:00 10/13/20 17:22 I have reviewed the current psychotropics carefully including drug interactions. Risk benefit ratio favors no change other than as noted in my dictated progress note. Diagnosis: Problems: (1) Impulse control disorder, unspecified (2) PTSD (post-traumatic stress disorder) (3) Anxiety disorder, unspecified (4) Dementia, vascular, with depression (5) Dementia, vascular, with delusions (6) Dementia in Alzheimer's disease with depression (7) Dementia in Alzheimer's disease with delusions (8) Dementia of the Alzheimer's type with early onset with behavioral disturbance (9) Major neurocognitive disorder DUANE NINO MD Oct 13, 2020 22:14
--- NOTE | 2020-10-13 22:14 | NUR ---
Patient is wandering around the unit on assumption of care. He is in pleasant spirits, confused, disorganized. Intrusive, going in and out of other patients' rooms. PRN Trazodone given with HS meds, with good effect. Meds were given crushed in pudding and patient was compliant. He appears to be sleeping comfortably at present time. Will continue to monitor.
[2020-10-14 06:09] VITALS: BP 104/58
[2020-10-14] MEDS: MULTIVITAMIN with MINERAL TABLET. PO SCH (07:59)
[2020-10-14] MEDS: POTASSIUM CHLORIDE 20 MEQ TABLET.ER. PO SCH ×2 (07:59→15:57)
[2020-10-14] MEDS: LORazepam 0.5 MG TABLET PO PRN (07:59)
[2020-10-14] MEDS: ASPIRIN CHEWABLE 81 MG TABLET. PO SCH (07:59)
[2020-10-14] MEDS: QUEtiapine 25 MG TABLET. PO SCH ×3 (07:59→19:48)
[2020-10-14] MEDS: ACETAMINOPHEN 325 MG TABLET PO SCH ×2 (07:59→19:49)
[2020-10-14] MEDS: PANTOPRAZOLE 40 MG TABLET. PO SCH (08:00)
[2020-10-14] MEDS: FUROSEMIDE 40 MG TABLET PO SCH (08:00)
[2020-10-14] MEDS: carBAMazepine 200 MG TABLET PO SCH ×2 (08:03→15:57)
[2020-10-14] MEDS: QUEtiapine 50 MG TABLET. PO SCH (13:07)
--- NOTE | 2020-10-14 13:12 | NUR ---
Nsg Note; pt is confused and wanted me to help him take care of his four little kids. he does look for them occasionally and states they are in the basement. He also states that he bought me a [employer] album this morning. He is intrusive with staff and other patients and tends to be suspicious of male patients saying they are up to no good. he is med compliant, crushed in pudding.
[2020-10-14 15:54] VITALS: BP 126/81
[2020-10-14] MEDS: oxyCODONE/APAP 7.5/325 1 TAB TABLET PO PRN (15:56)
[2020-10-14] MEDS: SERTRALINE 100 MG TABLET. PO SCH (15:57)
[2020-10-14] MEDS: PRAZOSIN 1 MG CAPSULE. PO SCH (19:46)
[2020-10-14] MEDS: MIRTAZAPINE 15 MG TABLET PO SCH (19:47)
[2020-10-14] MEDS: ATORVASTATIN CALCIUM 10 MG TABLET. PO SCH (19:47)
[2020-10-14] MEDS: traZODone 50 MG TABLET. PO PRN (19:47)
[2020-10-14] MEDS: MELATONIN 3 MG TABLET PO SCH (19:47)
--- NOTE | 2020-10-14 21:59 | PDOC ---
Exam Note: Raman Note: Please also refer to the separate dictated note~for this date of service dictated separately.~Patient seen individually. Discussed the patient with Nursing staff reviewed the chart.~Reviewed interim history and current functioning. Reviewed vital signs,~Labs/ Radiology~and current medications noted below. Continue current treatment with the changes noted in the dictated addendum note Assessment: Vital Signs/I&O: Vital Signs Date Time Temp Pulse Resp B/P (MAP) Pulse Ox O2 Delivery O2 Flow Rate FiO2 10/14/20 19:46 85 126/81 10/14/20 15:54 97.8 18 99 10/13/20 15:41 Room Air I & O 10/13/20 10/13/20 10/14/20 15:00 23:00 07:00 Intake Total 520 ml 600 ml Balance 520 ml 600 ml Current Medications: Meds: Current Medications Medications (Trade) Dose Ordered Sig/Abundio Route PRN Reason Start Time Stop Time Status Last Admin Dose Admin Acetaminophen (Tylenol) 650 mg PRN Q6HRS PRN PO MILD PAIN / TEMP > 100.3'F 09/17/20 15:30 09/21/20 07:53 DC 09/20/20 20:31 Multi-Ingredient Ointment (Analgesic [place]) 1 will PRN QID PRN TP 1ST CHOICE MUSCLE PAIN 09/17/20 15:30 Al Hydroxide/Mg Hydroxide (Mylanta Plus Xs) 15 ml PRN AFTMEALHC PRN PO DYSPEPSIA 09/17/20 15:30 Magnesium Hydroxide (Milk Of Magnesia) 2,400 mg PRN QHS PRN PO 1st choice CONSTIPATION 09/17/20 15:30 10/12/20 20:16 Acetaminophen (Tylenol) 650 mg BID PO 09/17/20 21:00 10/14/20 19:49 Acetaminophen (Tylenol) 650 mg PRN Q6HRS PRN PO MILD PAIN 1-3/ TEMP 09/17/20 16:15 Aspirin (Aspirin Chewable) 81 mg DAILY PO 09/18/20 09:00 10/14/20 07:59 Atorvastatin Calcium (Lipitor) 10 mg QHS PO 09/17/20 21:00 10/14/20 19:47 Bisacodyl (Dulcolax Supp) 10 mg PRN DAILY PRN RC 2nd choice CONSTIPATION 09/17/20 16:15 Diclofenac Sodium (Voltaren) 1 will PRN Q8HRS PRN TP 2ND CHOICE MUSCLE PAIN 09/17/20 16:15 Divalproex Sodium (Depakote Er) 750 mg QHS PO 09/17/20 21:00 09/23/20 18:19 DC 09/22/20 20:42 Lorazepam (Ativan) 0.5 mg PRN BID PRN PO 1ST CHOICE ANXIETY 09/17/20 16:15 10/14/20 07:59 Mirtazapine (Remeron) 15 mg QHS PO 09/17/20 21:00 10/14/20 19:47 Olanzapine (ZyPREXA ZYDIS) 2.5 mg PRN Q2HR PRN PO 2ND CHOICE ANXIETY / AGITATION 09/17/20 16:15 10/14/20 19:48 Oxycodone/ Acetaminophen (Percocet 7.5/ 325) 1 tab PRN Q8HRS PRN PO MOD-SEVERE PAIN 09/17/20 16:15 10/14/20 15:56 Artificial Tears (Artificial Tears) 1 drop PRN Q15MIN PRN OU DRY EYE 09/17/20 16:15 Prazosin HCl (Minipress) 3 mg QHS PO 09/17/20 21:00 10/08/20 22:34 DC 10/07/20 20:01 Quetiapine Fumarate (SEROquel) 37.5 mg 0900,1300,1700 PO 09/17/20 17:00 09/22/20 18:34 DC 09/22/20 16:14 Quetiapine Fumarate (SEROquel) 50 mg PRN DAILY PRN PO 3RD CHOICE ANXIETY / AGITATION 09/17/20 16:15 Quetiapine Fumarate (SEROquel) 100 mg QHS PO 09/17/20 21:00 09/22/20 18:34 DC 09/21/20 20:53 Sertraline HCl (Zoloft) 100 mg DAILY@1700 PO 09/17/20 17:00 10/14/20 15:57 Trazodone HCl (Desyrel) 50 mg PRN QHS PRN PO INSOMNIA, MAY REPEAT X1 09/17/20 16:15 10/14/20 19:47 Loperamide HCl (Imodium) 2 mg PRN Q15MIN PRN PO DIARRHEA 09/17/20 16:30 Multivitamins/ Calcium (Thera-M Plus) 1 tab DAILY PO 09/18/20 09:00 10/14/20 07:59 Pantoprazole Sodium (Protonix) 40 mg DAILYAC PO 09/18/20 07:30 10/14/20 08:00 Potassium Chloride (Klor-Con) 10 meq QODAY PO 09/19/20 09:00 09/23/20 11:34 DC 09/21/20 08:08 Quetiapine Fumarate (SEROquel) 75 mg QHS PO 09/22/20 21:00 10/14/20 19:48 Quetiapine Fumarate (SEROquel) 50 mg 0900,1700 PO 09/23/20 09:00 10/12/20 22:27 DC 10/12/20 17:16 Quetiapine Fumarate (SEROquel) 37.5 mg 1300 PO 09/23/20 13:00 10/07/20 20:56 DC 10/07/20 12:05 Potassium Chloride (Klor-Con) 20 meq 1300 PO 09/23/20 13:00 09/23/20 19:08 DC 09/23/20 12:03 Furosemide (Lasix) 80 mg 1300 PO 09/23/20 13:00 09/23/20 19:08 DC 09/23/20 12:03 Furosemide (Lasix) 80 mg DAILY PO 09/24/20 09:00 10/02/20 17:26 DC 10/02/20 08:24 Potassium Chloride (Klor-Con) 20 meq DAILY PO 09/24/20 09:00 09/30/20 17:27 DC 09/30/20 08:27 Carbamazepine (TEGretol) 100 mg DAILY@0900,1700 PO 09/25/20 20:15 09/29/20 00:02 DC 09/28/20 17:26 Carbamazepine (TEGretol) 100 mg DAILY PO 09/29/20 09:00 10/02/20 16:45 DC 10/01/20 17:14 Carbamazepine (TEGretol) 200 mg DAILYWSUP PO 09/29/20 17:00 10/14/20 15:57 Potassium Chloride (Klor-Con) 20 meq BID PO 09/30/20 18:00 09/30/20 17:31 DC Metolazone (Zaroxolyn) 2.5 mg DAILY PO 10/01/20 09:00 10/02/20 17:26 DC 10/02/20 08:23 Potassium Chloride (Klor-Con) 20 meq BIDWMEALS PO 09/30/20 18:00 10/14/20 15:57 Carbamazepine (TEGretol) 200 mg DAILY PO 10/03/20 09:00 10/14/20 08:03 Furosemide (Lasix) 40 mg DAILY PO 10/03/20 09:00 10/14/20 08:00 Quetiapine Fumarate (SEROquel) 50 mg 1300 PO 10/07/20 13:00 10/07/20 21:01 DC Melatonin (Melatonin) 3 mg HS PO 10/07/20 21:00 10/14/20 19:47 Quetiapine Fumarate (SEROquel) 50 mg 1300 PO 10/08/20 13:00 10/14/20 13:07 Prazosin HCl (Minipress) 2 mg HS PO 10/09/20 21:00 10/14/20 19:46 Quetiapine Fumarate (SEROquel) 62.5 mg 0900,1700 PO 10/13/20 09:00 10/14/20 15:57 I have reviewed the current psychotropics carefully including drug interactions. Risk benefit ratio favors no change other than as noted in my dictated progress note. Diagnosis: Problems: (1) Impulse control disorder, unspecified (2) PTSD (post-traumatic stress disorder) (3) Anxiety disorder, unspecified (4) Dementia, vascular, with depression (5) Dementia, vascular, with delusions (6) Dementia in Alzheimer's disease with depression (7) Dementia in Alzheimer's disease with delusions (8) Dementia of the Alzheimer's type with early onset with behavioral disturb ance (9) Major neurocognitive disorder DUANE NINO MD Oct 14, 2020 21:59
[2020-10-15] MEDS: oxyCODONE/APAP 7.5/325 1 TAB TABLET PO PRN (02:30)
[2020-10-15 05:47] VITALS: BP 104/61
--- NOTE | 2020-10-15 06:34 | PDOC ---
Exam Note: Raman Note: This note is a late entry for 10/12/2020 covers elements not covered in my initial note. Subjective: The patient was seen face to face in the evening of 10/12/2020 with Sandra MONTEMAYOR, discussed and reviewed the chart. The patient slept 4-1/2 hours previous night. The patient remains anxious, restless, in and out of his room, touching different things around him, restless but redirects. Review of Systems: No CV, , pulmonary, eye, ENT system symptoms on review. Mental Status Exam: The patient is oriented to himself. He is pleasant, verbal, interactive, confused, commenting on how well I was dressed. Insight and judgment, recent and remote memory, attention and concentration, fund of knowledge is poor consistent with his diagnoses. Laboratory Data: Reviewed. Impression: Major neurocognitive disorder Alzheimer vascular with delusion, depression, and behavioral disturbance. Anxiety disorder unspecified. Impulse control disorder unspecified. PTSD. Plan: The patient is currently on Seroquel 50 mg 0900, 1700, 1300 and 75 mg h.s. We will increase the 0900 and 1700 hours Seroquel to 62.5 mg. Continue rest psychotropics unchanged. Assessment: Vital Signs/I&O: Vital Signs Date Time Temp Pulse Resp B/P (MAP) Pulse Ox O2 Delivery O2 Flow Rate FiO2 10/15/20 05:47 97.9 84 18 104/61 (75) 98 Room Air I & O 10/14/20 10/14/20 10/15/20 15:00 23:00 07:00 Intake Total 920 ml 240 ml Balance 920 ml 240 ml Current Medications: Meds: Current Medications Medications (Trade) Dose Ordered Sig/Abundio Route PRN Reason Start Time Stop Time Status Last Admin Dose Admin Acetaminophen (Tylenol) 650 mg PRN Q6HRS PRN PO MILD PAIN / TEMP > 100.3'F 09/17/20 15:30 09/21/20 07:53 DC 09/20/20 20:31 Multi-Ingredient Ointment (Analgesic [place]) 1 will PRN QID PRN TP 1ST CHOICE MUSCLE PAIN 09/17/20 15:30 Al Hydroxide/Mg Hydroxide (Mylanta Plus Xs) 15 ml PRN AFTMEALHC PRN PO DYSPEPSIA 09/17/20 15:30 Magnesium Hydroxide (Milk Of Magnesia) 2,400 mg PRN QHS PRN PO 1st choice CONSTIPATION 09/17/20 15:30 10/12/20 20:16 Acetaminophen (Tylenol) 650 mg BID PO 09/17/20 21:00 10/14/20 19:49 Acetaminophen (Tylenol) 650 mg PRN Q6HRS PRN PO MILD PAIN 1-3/ TEMP 09/17/20 16:15 Aspirin (Aspirin Chewable) 81 mg DAILY PO 09/18/20 09:00 10/14/20 07:59 Atorvastatin Calcium (Lipitor) 10 mg QHS PO 09/17/20 21:00 10/14/20 19:47 Bisacodyl (Dulcolax Supp) 10 mg PRN DAILY PRN RC 2nd choice CONSTIPATION 09/17/20 16:15 Diclofenac Sodium (Voltaren) 1 will PRN Q8HRS PRN TP 2ND CHOICE MUSCLE PAIN 09/17/20 16:15 Divalproex Sodium (Depakote Er) 750 mg QHS PO 09/17/20 21:00 09/23/20 18:19 DC 09/22/20 20:42 Lorazepam (Ativan) 0.5 mg PRN BID PRN PO 1ST CHOICE ANXIETY 09/17/20 16:15 10/14/20 07:59 Mirtazapine (Remeron) 15 mg QHS PO 09/17/20 21:00 10/14/20 19:47 Olanzapine (ZyPREXA ZYDIS) 2.5 mg PRN Q2HR PRN PO 2ND CHOICE ANXIETY / AGITATION 09/17/20 16:15 10/14/20 19:48 Oxycodone/ Acetaminophen (Percocet 7.5/ 325) 1 tab PRN Q8HRS PRN PO MOD-SEVERE PAIN 09/17/20 16:15 10/15/20 02:30 Artificial Tears (Artificial Tears) 1 drop PRN Q15MIN PRN OU DRY EYE 09/17/20 16:15 Prazosin HCl (Minipress) 3 mg QHS PO 09/17/20 21:00 10/08/20 22:34 DC 10/07/20 20:01 Quetiapine Fumarate (SEROquel) 37.5 mg 0900,1300,1700 PO 09/17/20 17:00 09/22/20 18:34 DC 09/22/20 16:14 Quetiapine Fumarate (SEROquel) 50 mg PRN DAILY PRN PO 3RD CHOICE ANXIETY / AGITATION 09/17/20 16:15 Quetiapine Fumarate (SEROquel) 100 mg QHS PO 09/17/20 21:00 09/22/20 18:34 DC 09/21/20 20:53 Sertraline HCl (Zoloft) 100 mg DAILY@1700 PO 09/17/20 17:00 10/14/20 15:57 Trazodone HCl (Desyrel) 50 mg PRN QHS PRN PO INSOMNIA, MAY REPEAT X1 09/17/20 16:15 10/14/20 19:47 Loperamide HCl (Imodium) 2 mg PRN Q15MIN PRN PO DIARRHEA 09/17/20 16:30 Multivitamins/ Calcium (Thera-M Plus) 1 tab DAILY PO 09/18/20 09:00 10/14/20 07:59 Pantoprazole Sodium (Protonix) 40 mg DAILYAC PO 09/18/20 07:30 10/14/20 08:00 Potassium Chloride (Klor-Con) 10 meq QODAY PO 09/19/20 09:00 09/23/20 11:34 DC 09/21/20 08:08 Quetiapine Fumarate (SEROquel) 75 mg QHS PO 09/22/20 21:00 10/14/20 19:48 Quetiapine Fumarate (SEROquel) 50 mg 0900,1700 PO 09/23/20 09:00 10/12/20 22:27 DC 10/12/20 17:16 Quetiapine Fumarate (SEROquel) 37.5 mg 1300 PO 09/23/20 13:00 10/07/20 20:56 DC 10/07/20 12:05 Potassium Chloride (Klor-Con) 20 meq 1300 PO 09/23/20 13:00 09/23/20 19:08 DC 09/23/20 12:03 Furosemide (Lasix) 80 mg 1300 PO 09/23/20 13:00 09/23/20 19:08 DC 09/23/20 12:03 Furosemide (Lasix) 80 mg DAILY PO 09/24/20 09:00 10/02/20 17:26 DC 10/02/20 08:24 Potassium Chloride (Klor-Con) 20 meq DAILY PO 09/24/20 09:00 09/30/20 17:27 DC 09/30/20 08:27 Carbamazepine (TEGretol) 100 mg DAILY@0900,1700 PO 09/25/20 20:15 09/29/20 00:02 DC 09/28/20 17:26 Carbamazepine (TEGretol) 100 mg DAILY PO 09/29/20 09:00 10/02/20 16:45 DC 10/01/20 17:14 Carbamazepine (TEGretol) 200 mg DAILYWSUP PO 09/29/20 17:00 10/14/20 15:57 Potassium Chloride (Klor-Con) 20 meq BID PO 09/30/20 18:00 09/30/20 17:31 DC Metolazone (Zaroxolyn) 2.5 mg DAILY PO 10/01/20 09:00 10/02/20 17:26 DC 10/02/20 08:23 Potassium Chloride (Klor-Con) 20 meq BIDWMEALS PO 09/30/20 18:00 10/14/20 15:57 Carbamazepine (TEGretol) 200 mg DAILY PO 10/03/20 09:00 10/14/20 08:03 Furosemide (Lasix) 40 mg DAILY PO 10/03/20 09:00 10/14/20 08:00 Quetiapine Fumarate (SEROquel) 50 mg 1300 PO 10/07/20 13:00 10/07/20 21:01 DC Melatonin (Melatonin) 3 mg HS PO 10/07/20 21:00 10/14/20 19:47 Quetiapine Fumarate (SEROquel) 50 mg 1300 PO 10/08/20 13:00 10/14/20 13:07 Prazosin HCl (Minipress) 2 mg HS PO 10/09/20 21:00 10/14/20 19:46 Quetiapine Fumarate (SEROquel) 62.5 mg 0900,1700 PO 10/13/20 09:00 10/14/20 15:57 I have reviewed the current psychotropics carefully including drug interactions. Risk benefit ratio favors no change other than as noted in my dictated progress note. Diagnosis: Problems: (1) Impulse control disorder, unspecified (2) PTSD (post-traumatic stress disorder) (3) Anxiety disorder, unspecified (4) Dementia, vascular, with depression (5) Dementia, vascular, with delusions (6) Dementia in Alzheimer's disease with depression (7) Dementia in Alzheimer's disease with delusions (8) Dementia of the Alzheimer's type with early onset with behavioral disturbance (9) Major neurocognitive disorder DUANE NINO MD Oct 15, 2020 06:34
--- NOTE | 2020-10-15 06:50 | PDOC ---
Exam Note: Raman Note: This note is a late entry for 10/13/2020 covers elements not covered in my initial note. Subjective: The patient was seen face to face in the evening of 10/13/2020 with Sandra MONTEMAYOR, discussed and reviewed the chart. The patient slept 7 hours previous night. The patient has been wandering, anxious, confused, took the walker of another patient on the unit, oblivious of what he is doing. He is otherwise very pleasant, verbal, interactive as I met with him. Review of Systems: No CV, , pulmonary, eye, ENT system symptoms on review. Reliability poor. Mental Status Exam: The patient is oriented to himself. Insight and judgment, recent and remote memory, attention and concentration, fund of knowledge is poor consistent with his diagnoses. Laboratory Data: Reviewed. Impression: Major neurocognitive disorder Alzheimer vascular with delusion, depression, and behavioral disturbance. Anxiety disorder unspecified. Impulse control disorder unspecified. PTSD. Plan: No change from initial note. Assessment: Vital Signs/I&O: Vital Signs Date Time Temp Pulse Resp B/P (MAP) Pulse Ox O2 Delivery O2 Flow Rate FiO2 10/15/20 05:47 97.9 84 18 104/61 (75) 98 Room Air I & O 10/14/20 10/14/20 10/15/20 15:00 23:00 07:00 Intake Total 920 ml 240 ml Balance 920 ml 240 ml Current Medications: Meds: Current Medications Medications (Trade) Dose Ordered Sig/Abundio Route PRN Reason Start Time Stop Time Status Last Admin Dose Admin Acetaminophen (Tylenol) 650 mg PRN Q6HRS PRN PO MILD PAIN / TEMP > 100.3'F 09/17/20 15:30 09/21/20 07:53 DC 09/20/20 20:31 Multi-Ingredient Ointment (Analgesic [place]) 1 will PRN QID PRN TP 1ST CHOICE MUSCLE PAIN 09/17/20 15:30 Al Hydroxide/Mg Hydroxide (Mylanta Plus Xs) 15 ml PRN AFTMEALHC PRN PO DYSPEPSIA 09/17/20 15:30 Magnesium Hydroxide (Milk Of Magnesia) 2,400 mg PRN QHS PRN PO 1st choice CONSTIPATION 09/17/20 15:30 10/12/20 20:16 Acetaminophen (Tylenol) 650 mg BID PO 09/17/20 21:00 10/14/20 19:49 Acetaminophen (Tylenol) 650 mg PRN Q6HRS PRN PO MILD PAIN 1-3/ TEMP 09/17/20 16:15 Aspirin (Aspirin Chewable) 81 mg DAILY PO 09/18/20 09:00 10/14/20 07:59 Atorvastatin Calcium (Lipitor) 10 mg QHS PO 09/17/20 21:00 10/14/20 19:47 Bisacodyl (Dulcolax Supp) 10 mg PRN DAILY PRN RC 2nd choice CONSTIPATION 09/17/20 16:15 Diclofenac Sodium (Voltaren) 1 will PRN Q8HRS PRN TP 2ND CHOICE MUSCLE PAIN 09/17/20 16:15 Divalproex Sodium (Depakote Er) 750 mg QHS PO 09/17/20 21:00 09/23/20 18:19 DC 09/22/20 20:42 Lorazepam (Ativan) 0.5 mg PRN BID PRN PO 1ST CHOICE ANXIETY 09/17/20 16:15 10/14/20 07:59 Mirtazapine (Remeron) 15 mg QHS PO 09/17/20 21:00 10/14/20 19:47 Olanzapine (ZyPREXA ZYDIS) 2.5 mg PRN Q2HR PRN PO 2ND CHOICE ANXIETY / AGITATION 09/17/20 16:15 10/14/20 19:48 Oxycodone/ Acetaminophen (Percocet 7.5/ 325) 1 tab PRN Q8HRS PRN PO MOD-SEVERE PAIN 09/17/20 16:15 10/15/20 02:30 Artificial Tears (Artificial Tears) 1 drop PRN Q15MIN PRN OU DRY EYE 09/17/20 16:15 Prazosin HCl (Minipress) 3 mg QHS PO 09/17/20 21:00 10/08/20 22:34 DC 10/07/20 20:01 Quetiapine Fumarate (SEROquel) 37.5 mg 0900,1300,1700 PO 09/17/20 17:00 09/22/20 18:34 DC 09/22/20 16:14 Quetiapine Fumarate (SEROquel) 50 mg PRN DAILY PRN PO 3RD CHOICE ANXIETY / AGITATION 09/17/20 16:15 Quetiapine Fumarate (SEROquel) 100 mg QHS PO 09/17/20 21:00 09/22/20 18:34 DC 09/21/20 20:53 Sertraline HCl (Zoloft) 100 mg DAILY@1700 PO 09/17/20 17:00 10/14/20 15:57 Trazodone HCl (Desyrel) 50 mg PRN QHS PRN PO INSOMNIA, MAY REPEAT X1 09/17/20 16:15 10/14/20 19:47 Loperamide HCl (Imodium) 2 mg PRN Q15MIN PRN PO DIARRHEA 09/17/20 16:30 Multivitamins/ Calcium (Thera-M Plus) 1 tab DAILY PO 09/18/20 09:00 10/14/20 07:59 Pantoprazole Sodium (Protonix) 40 mg DAILYAC PO 09/18/20 07:30 10/14/20 08:00 Potassium Chloride (Klor-Con) 10 meq QODAY PO 09/19/20 09:00 09/23/20 11:34 DC 09/21/20 08:08 Quetiapine Fumarate (SEROquel) 75 mg QHS PO 09/22/20 21:00 10/14/20 19:48 Quetiapine Fumarate (SEROquel) 50 mg 0900,1700 PO 09/23/20 09:00 10/12/20 22:27 DC 10/12/20 17:16 Quetiapine Fumarate (SEROquel) 37.5 mg 1300 PO 09/23/20 13:00 10/07/20 20:56 DC 10/07/20 12:05 Potassium Chloride (Klor-Con) 20 meq 1300 PO 09/23/20 13:00 09/23/20 19:08 DC 09/23/20 12:03 Furosemide (Lasix) 80 mg 1300 PO 09/23/20 13:00 09/23/20 19:08 DC 09/23/20 12:03 Furosemide (Lasix) 80 mg DAILY PO 09/24/20 09:00 10/02/20 17:26 DC 10/02/20 08:24 Potassium Chloride (Klor-Con) 20 meq DAILY PO 09/24/20 09:00 09/30/20 17:27 DC 09/30/20 08:27 Carbamazepine (TEGretol) 100 mg DAILY@0900,1700 PO 09/25/20 20:15 09/29/20 00:02 DC 09/28/20 17:26 Carbamazepine (TEGretol) 100 mg DAILY PO 09/29/20 09:00 10/02/20 16:45 DC 10/01/20 17:14 Carbamazepine (TEGretol) 200 mg DAILYWSUP PO 09/29/20 17:00 10/14/20 15:57 Potassium Chloride (Klor-Con) 20 meq BID PO 09/30/20 18:00 09/30/20 17:31 DC Metolazone (Zaroxolyn) 2.5 mg DAILY PO 10/01/20 09:00 10/02/20 17:26 DC 10/02/20 08:23 Potassium Chloride (Klor-Con) 20 meq BIDWMEALS PO 09/30/20 18:00 10/14/20 15:57 Carbamazepine (TEGretol) 200 mg DAILY PO 10/03/20 09:00 10/14/20 08:03 Furosemide (Lasix) 40 mg DAILY PO 10/03/20 09:00 10/14/20 08:00 Quetiapine Fumarate (SEROquel) 50 mg 1300 PO 10/07/20 13:00 10/07/20 21:01 DC Melatonin (Melatonin) 3 mg HS PO 10/07/20 21:00 10/14/20 19:47 Quetiapine Fumarate (SEROquel) 50 mg 1300 PO 10/08/20 13:00 10/14/20 13:07 Prazosin HCl (Minipress) 2 mg HS PO 10/09/20 21:00 10/14/20 19:46 Quetiapine Fumarate (SEROquel) 62.5 mg 0900,1700 PO 10/13/20 09:00 10/14/20 15:57 I have reviewed the current psychotropics carefully including drug interactions. Risk benefit ratio favors no change other than as noted in my dictated progress note. Diagnosis: Problems: (1) Impulse control disorder, unspecified (2) PTSD (post-traumatic stress disorder) (3) Anxiety disorder, unspecified (4) Dementia, vascular, with depression (5) Dementia, vascular, with delusions (6) Dementia in Alzheimer's disease with depression (7) Dementia in Alzheimer's disease with delusions (8) Dementia of the Alzheimer's type with early onset with behavioral disturbance (9) Major neurocognitive disorder DUANE NINO MD Oct 15, 2020 06:50
[2020-10-15] MEDS: PANTOPRAZOLE 40 MG TABLET. PO SCH (08:14)
[2020-10-15] MEDS: FUROSEMIDE 40 MG TABLET PO SCH (08:14)
[2020-10-15] MEDS: QUEtiapine 25 MG TABLET. PO SCH ×3 (08:14→20:24)
[2020-10-15] MEDS: POTASSIUM CHLORIDE 20 MEQ TABLET.ER. PO SCH ×2 (08:14→17:03)
[2020-10-15] MEDS: MULTIVITAMIN with MINERAL TABLET. PO SCH (08:15)
[2020-10-15] MEDS: ASPIRIN CHEWABLE 81 MG TABLET. PO SCH (08:15)
[2020-10-15] MEDS: carBAMazepine 200 MG TABLET PO SCH ×2 (08:15→17:04)
[2020-10-15] MEDS: ACETAMINOPHEN 325 MG TABLET PO SCH ×2 (08:16→20:25)
[2020-10-15] MEDS: QUEtiapine 50 MG TABLET. PO SCH (12:11)
--- NOTE | 2020-10-15 12:19 | NUR ---
Nursing note: Pt is pleasant, compliant with meds crushed in a small bite of pudding and cooperative with his assessment. He does not appear to be in any pain. He has been wandering around the unit this AM and occasionally will go into other pt's rooms, but is easily redirected. He is currently in the dining room for lunch. Will continue to monitor.
--- NOTE | 2020-10-15 13:26 | NUR ---
[facility] Social Work Discharge Planning Form Patient Name MADHUNIEVES BONILLA Admit Date: 08/27/20, re-admit 09/17/20 after 10 day quarantine DISCHARGE PLAN Discharge Destination: [facility] Care Assessment: Previously completed Transportation: [facility] to transport on 10/16/20, supervisor opening and picking time to be determined. Special Instructions/Notes: Upon return to [facility], schedule f/u appointment with PCP/house physician in 7-14 days. Eric has an appointment at the [facility], Dr. Sutton, on 10/18/20 at 1:30pm. [facility] is located at [address] [address], [address], 1st floor, room [address]136. DISCHARGE TO FACILITY Facility: [facility] Address: [address] [place] [address] Contact Name: dulce Michaud Contact Name: RENE Hutson PCP: Dr. Harry Samson, , (fax) Psychiatrist: Dr. Sutton [phone] ext [phone], (fax) Addendum: 10/16/20 at 0938 by MARYBEL LÓPEZ D/C has been moved to 10/17/20 at 11am as Eric needs written prescriptions upon d/c. Prescriptions will be completed when rounds this afternoon.
--- NOTE | 2020-10-15 14:45 | NUR ---
RENE left voice message for Heidy, /POA, to inform of Eric's discharge on 10/16/20 to [facility]. Requested return phone call from Heidy should she have questions related to upcoming discharge.
[2020-10-15 16:28] VITALS: BP 124/50
[2020-10-15] MEDS: SERTRALINE 100 MG TABLET. PO SCH (17:04)
[2020-10-15] MEDS ORDERED: QUEtiapine 25 MG TABLET. PO ONE (18:00)
[2020-10-15] MEDS: PRAZOSIN 1 MG CAPSULE. PO SCH (20:24)
[2020-10-15] MEDS: MIRTAZAPINE 15 MG TABLET PO SCH (20:24)
[2020-10-15] MEDS: MELATONIN 3 MG TABLET PO SCH (20:24)
[2020-10-15] MEDS: ATORVASTATIN CALCIUM 10 MG TABLET. PO SCH (20:24)
--- NOTE | 2020-10-15 22:01 | PDOC ---
Exam Note: Raman Note: Please also refer to the separate dictated note~for this date of service dictated separately.~Patient seen individually. Discussed the patient with Nursing staff reviewed the chart.~Reviewed interim history and current functioning. Reviewed vital signs,~Labs/ Radiology~and current medications noted below. Continue current treatment with the changes noted in the dictated addendum note Assessment: Vital Signs/I&O: Vital Signs Date Time Temp Pulse Resp B/P (MAP) Pulse Ox O2 Delivery O2 Flow Rate FiO2 10/15/20 20:24 74 124/50 10/15/20 16:28 97.8 18 98 10/15/20 05:47 Room Air I & O 10/14/20 10/14/20 10/15/20 15:00 23:00 07:00 Intake Total 920 ml 240 ml Balance 920 ml 240 ml Current Medications: Meds: Current Medications Medications (Trade) Dose Ordered Sig/Abundio Route PRN Reason Start Time Stop Time Status Last Admin Dose Admin Acetaminophen (Tylenol) 650 mg PRN Q6HRS PRN PO MILD PAIN / TEMP > 100.3'F 09/17/20 15:30 09/21/20 07:53 DC 09/20/20 20:31 Multi-Ingredient Ointment (Analgesic [place]) 1 will PRN QID PRN TP 1ST CHOICE MUSCLE PAIN 09/17/20 15:30 Al Hydroxide/Mg Hydroxide (Mylanta Plus Xs) 15 ml PRN AFTMEALHC PRN PO DYSPEPSIA 09/17/20 15:30 Magnesium Hydroxide (Milk Of Magnesia) 2,400 mg PRN QHS PRN PO 1st choice CONSTIPATION 09/17/20 15:30 10/12/20 20:16 Acetaminophen (Tylenol) 650 mg BID PO 09/17/20 21:00 10/15/20 20:25 Acetaminophen (Tylenol) 650 mg PRN Q6HRS PRN PO MILD PAIN 1-3/ TEMP 09/17/20 16:15 Aspirin (Aspirin Chewable) 81 mg DAILY PO 09/18/20 09:00 10/15/20 08:15 Atorvastatin Calcium (Lipitor) 10 mg QHS PO 09/17/20 21:00 10/15/20 20:24 Bisacodyl (Dulcolax Supp) 10 mg PRN DAILY PRN RC 2nd choice CONSTIPATION 09/17/20 16:15 Diclofenac Sodium (Voltaren) 1 will PRN Q8HRS PRN TP 2ND CHOICE MUSCLE PAIN 09/17/20 16:15 Divalproex Sodium (Depakote Er) 750 mg QHS PO 09/17/20 21:00 09/23/20 18:19 DC 09/22/20 20:42 Lorazepam (Ativan) 0.5 mg PRN BID PRN PO 1ST CHOICE ANXIETY 09/17/20 16:15 10/14/20 07:59 Mirtazapine (Remeron) 15 mg QHS PO 09/17/20 21:00 10/15/20 20:24 Olanzapine (ZyPREXA ZYDIS) 2.5 mg PRN Q2HR PRN PO 2ND CHOICE ANXIETY / AGITATION 09/17/20 16:15 10/14/20 19:48 Oxycodone/ Acetaminophen (Percocet 7.5/ 325) 1 tab PRN Q8HRS PRN PO MOD-SEVERE PAIN 09/17/20 16:15 10/15/20 02:30 Artificial Tears (Artificial Tears) 1 drop PRN Q15MIN PRN OU DRY EYE 09/17/20 16:15 Prazosin HCl (Minipress) 3 mg QHS PO 09/17/20 21:00 10/08/20 22:34 DC 10/07/20 20:01 Quetiapine Fumarate (SEROquel) 37.5 mg 0900,1300,1700 PO 09/17/20 17:00 09/22/20 18:34 DC 09/22/20 16:14 Quetiapine Fumarate (SEROquel) 50 mg PRN DAILY PRN PO 3RD CHOICE ANXIETY / AGITATION 09/17/20 16:15 Quetiapine Fumarate (SEROquel) 100 mg QHS PO 09/17/20 21:00 09/22/20 18:34 DC 09/21/20 20:53 Sertraline HCl (Zoloft) 100 mg DAILY@1700 PO 09/17/20 17:00 10/15/20 17:04 Trazodone HCl (Desyrel) 50 mg PRN QHS PRN PO INSOMNIA, MAY REPEAT X1 09/17/20 16:15 10/14/20 19:47 Loperamide HCl (Imodium) 2 mg PRN Q15MIN PRN PO DIARRHEA 09/17/20 16:30 Multivitamins/ Calcium (Thera-M Plus) 1 tab DAILY PO 09/18/20 09:00 10/15/20 08:15 Pantoprazole Sodium (Protonix) 40 mg DAILYAC PO 09/18/20 07:30 10/15/20 08:14 Potassium Chloride (Klor-Con) 10 meq QODAY PO 09/19/20 09:00 09/23/20 11:34 DC 09/21/20 08:08 Quetiapine Fumarate (SEROquel) 75 mg QHS PO 09/22/20 21:00 10/15/20 20:24 Quetiapine Fumarate (SEROquel) 50 mg 0900,1700 PO 09/23/20 09:00 10/12/20 22:27 DC 10/12/20 17:16 Quetiapine Fumarate (SEROquel) 37.5 mg 1300 PO 09/23/20 13:00 10/07/20 20:56 DC 10/07/20 12:05 Potassium Chloride (Klor-Con) 20 meq 1300 PO 09/23/20 13:00 09/23/20 19:08 DC 09/23/20 12:03 Furosemide (Lasix) 80 mg 1300 PO 09/23/20 13:00 09/23/20 19:08 DC 09/23/20 12:03 Furosemide (Lasix) 80 mg DAILY PO 09/24/20 09:00 10/02/20 17:26 DC 10/02/20 08:24 Potassium Chloride (Klor-Con) 20 meq DAILY PO 09/24/20 09:00 09/30/20 17:27 DC 09/30/20 08:27 Carbamazepine (TEGretol) 100 mg DAILY@0900,1700 PO 09/25/20 20:15 09/29/20 00:02 DC 09/28/20 17:26 Carbamazepine (TEGretol) 100 mg DAILY PO 09/29/20 09:00 10/02/20 16:45 DC 10/01/20 17:14 Carbamazepine (TEGretol) 200 mg DAILYWSUP PO 09/29/20 17:00 10/15/20 17:04 Potassium Chloride (Klor-Con) 20 meq BID PO 09/30/20 18:00 09/30/20 17:31 DC Metolazone (Zaroxolyn) 2.5 mg DAILY PO 10/01/20 09:00 10/02/20 17:26 DC 10/02/20 08:23 Potassium Chloride (Klor-Con) 20 meq BIDWMEALS PO 09/30/20 18:00 10/15/20 17:03 Carbamazepine (TEGretol) 200 mg DAILY PO 10/03/20 09:00 10/15/20 08:15 Furosemide (Lasix) 40 mg DAILY PO 10/03/20 09:00 10/15/20 08:14 Quetiapine Fumarate (SEROquel) 50 mg 1300 PO 10/07/20 13:00 10/07/20 21:01 DC Melatonin (Melatonin) 3 mg HS PO 10/07/20 21:00 10/15/20 20:24 Quetiapine Fumarate (SEROquel) 50 mg 1300 PO 10/08/20 13:00 10/15/20 17:50 DC 10/15/20 12:11 Prazosin HCl (Minipress) 2 mg HS PO 10/09/20 21:00 10/15/20 20:24 Quetiapine Fumarate (SEROquel) 62.5 mg 0900,1700 PO 10/13/20 09:00 10/15/20 17:50 DC 10/15/20 17:04 Quetiapine Fumarate (SEROquel) 62.5 mg 0900,1300,1700 PO 10/16/20 09:00 Quetiapine Fumarate (SEROquel) 12.5 mg 1X ONCE PO 10/15/20 18:00 10/15/20 18:03 DC 10/15/20 18:14 Current Medications Medications (Trade) Dose Ordered Sig/Abundio Route PRN Reason Start Time Stop Time Status Last Admin Dose Admin Quetiapine Fumarate (SEROquel) 12.5 mg 1X ONCE PO 10/15/20 18:00 10/15/20 18:03 DC 10/15/20 18:14 I have reviewed the current psychotropics carefully including drug interactions. Risk benefit ratio favors no change other than as noted in my dictated progress note. Diagnosis: Problems: (1) Impulse control disorder, unspecified (2) PTSD (post-traumatic stress disorder) (3) Anxiety disorder, unspecified (4) Dementia, vascular, with depression (5) Dementia, vascular, with delusions (6) Dementia in Alzheimer's disease with depression (7) Dementia in Alzheimer's disease with delusions (8) Dementia of the Alzheimer's type with early onset with behavioral disturbance (9) Major neurocognitive disorder DUANE NINO MD Oct 15, 2020 22:01
[2020-10-16] MEDS ORDERED: MELA3TAB4 PO (00:29)
[2020-10-16] MEDS ORDERED: FURO40TA4 PO (00:29)
[2020-10-16] MEDS ORDERED: QUET25TA5 PO (00:31)
[2020-10-16] MEDS: oxyCODONE/APAP 7.5/325 1 TAB TABLET PO PRN (03:24)
--- NOTE | 2020-10-16 03:31 | NUR ---
Prn pain med given. Pt reports foot pain. Last evening pt was cooperative and social with peers and has had no behaviors tonight.
[2020-10-16 05:31] VITALS: BP 118/64
[2020-10-16] MEDS: PANTOPRAZOLE 40 MG TABLET. PO SCH (07:30)
[2020-10-16] MEDS: FUROSEMIDE 40 MG TABLET PO SCH (08:07)
[2020-10-16] MEDS: POTASSIUM CHLORIDE 20 MEQ TABLET.ER. PO SCH ×2 (08:07→17:00)
[2020-10-16] MEDS: carBAMazepine 200 MG TABLET PO SCH ×2 (08:08→17:00)
[2020-10-16] MEDS: ASPIRIN CHEWABLE 81 MG TABLET. PO SCH (08:08)
[2020-10-16] MEDS: QUEtiapine 25 MG TABLET. PO SCH ×4 (08:08→20:12)
[2020-10-16] MEDS: MULTIVITAMIN with MINERAL TABLET. PO SCH (08:15)
[2020-10-16] MEDS: ACETAMINOPHEN 325 MG TABLET PO SCH ×2 (08:15→20:12)
--- NOTE | 2020-10-16 08:23 | NUR ---
Pt A&O to self only, confused and disorganized. He was initially med compliant with medications crushed and mixed into applesauce, however after 2 spoonfuls he refused to consume the remaining medication d/t his displeasure of the taste. These particular medications were his primary psychiatric medications. It is unknown at this time just how much of his morning medications was successfully administered to him. Pt absent of SI/HI/VH/AH at this time, PAINAD score is 0. Pt absent of verbal/physical aggression thus far. Plan of care continues, will pass to next shift.
--- NOTE | 2020-10-16 09:21 | NUR ---
Eric's discharge has been postponed until 10/17/20 at 11am due to the need for written prescriptions upon d/c. Nursing has prepared written prescriptions for levelman to sign this afternoon. [facility] preferred for Eric to arrive at their facility by early afternoon to avoid possible owning in transport. SW placed call to Heidy, , to inform of above change in plan.
[2020-10-16] MEDS: LORazepam 0.5 MG TABLET PO PRN ×2 (13:03→17:14)
--- NOTE | 2020-10-16 13:04 | NUR ---
After lunch pt was increasing in agitation and was heard by nursing staff to mumble "I want to kill that motherfucker." Pt escorted to his room for some privacy and a lower-stimuli environment to self-regulate his emotions. PRN Lorazepam 0.5mg PO administered without difficulty. Currently pt is seen to be laying in bed, no signs of distress.
[2020-10-16 15:49] VITALS: BP 122/61
[2020-10-16] MEDS: SERTRALINE 100 MG TABLET. PO SCH (17:00)
--- NOTE | 2020-10-16 17:14 | NUR ---
During dinner pt escalated in agitation and verbal aggression towards 2 male peers and he threatened (unprovoked) to "kill" them. PRN Lorazepam 0.5mg PO administered.
[2020-10-16] MEDS: MIRTAZAPINE 15 MG TABLET PO SCH (20:11)
[2020-10-16] MEDS: ATORVASTATIN CALCIUM 10 MG TABLET. PO SCH (20:11)
[2020-10-16] MEDS: MELATONIN 3 MG TABLET PO SCH (20:12)
[2020-10-16] MEDS: PRAZOSIN 1 MG CAPSULE. PO SCH (20:13)
--- NOTE | 2020-10-16 21:58 | PDOC ---
Exam Note: Raman Note: Please also refer to the separate dictated note~for this date of service dictated separately.~Patient seen individually. Discussed the patient with Nursing staff reviewed the chart.~Reviewed interim history and current functioning. Reviewed vital signs,~Labs/ Radiology~and current medications noted below. Continue current treatment with the changes noted in the dictated addendum note Assessment: Vital Signs/I&O: Vital Signs Date Time Temp Pulse Resp B/P (MAP) Pulse Ox O2 Delivery O2 Flow Rate FiO2 10/16/20 20:13 82 122/61 10/16/20 15:49 97.8 18 97 10/16/20 04:00 Room Air I & O 10/15/20 10/15/20 10/16/20 15:00 23:00 07:00 Intake Total 720 ml 480 ml Balance 720 ml 480 ml Current Medications: Meds: Current Medications Medications (Trade) Dose Ordered Sig/Abundio Route PRN Reason Start Time Stop Time Status Last Admin Dose Admin Acetaminophen (Tylenol) 650 mg PRN Q6HRS PRN PO MILD PAIN / TEMP > 100.3'F 09/17/20 15:30 09/21/20 07:53 DC 09/20/20 20:31 Multi-Ingredient Ointment (Analgesic [place]) 1 will PRN QID PRN TP 1ST CHOICE MUSCLE PAIN 09/17/20 15:30 Al Hydroxide/Mg Hydroxide (Mylanta Plus Xs) 15 ml PRN AFTMEALHC PRN PO DYSPEPSIA 09/17/20 15:30 Magnesium Hydroxide (Milk Of Magnesia) 2,400 mg PRN QHS PRN PO 1st choice CONSTIPATION 09/17/20 15:30 10/12/20 20:16 Acetaminophen (Tylenol) 650 mg BID PO 09/17/20 21:00 10/16/20 20:12 Acetaminophen (Tylenol) 650 mg PRN Q6HRS PRN PO MILD PAIN 1-3/ TEMP 09/17/20 16:15 Aspirin (Aspirin Chewable) 81 mg DAILY PO 09/18/20 09:00 10/16/20 08:08 Atorvastatin Calcium (Lipitor) 10 mg QHS PO 09/17/20 21:00 10/16/20 20:11 Bisacodyl (Dulcolax Supp) 10 mg PRN DAILY PRN RC 2nd choice CONSTIPATION 09/17/20 16:15 Diclofenac Sodium (Voltaren) 1 will PRN Q8HRS PRN TP 2ND CHOICE MUSCLE PAIN 09/17/20 16:15 Divalproex Sodium (Depakote Er) 750 mg QHS PO 09/17/20 21:00 09/23/20 18:19 DC 09/22/20 20:42 Lorazepam (Ativan) 0.5 mg PRN BID PRN PO 1ST CHOICE ANXIETY 09/17/20 16:15 10/16/20 17:14 Mirtazapine (Remeron) 15 mg QHS PO 09/17/20 21:00 10/16/20 20:11 Olanzapine (ZyPREXA ZYDIS) 2.5 mg PRN Q2HR PRN PO 2ND CHOICE ANXIETY / AGITATION 09/17/20 16:15 10/14/20 19:48 Oxycodone/ Acetaminophen (Percocet 7.5/ 325) 1 tab PRN Q8HRS PRN PO MOD-SEVERE PAIN 09/17/20 16:15 10/16/20 03:24 Artificial Tears (Artificial Tears) 1 drop PRN Q15MIN PRN OU DRY EYE 09/17/20 16:15 Prazosin HCl (Minipress) 3 mg QHS PO 09/17/20 21:00 10/08/20 22:34 DC 10/07/20 20:01 Quetiapine Fumarate (SEROquel) 37.5 mg 0900,1300,1700 PO 09/17/20 17:00 09/22/20 18:34 DC 09/22/20 16:14 Quetiapine Fumarate (SEROquel) 50 mg PRN DAILY PRN PO 3RD CHOICE ANXIETY / AGITATION 09/17/20 16:15 Quetiapine Fumarate (SEROquel) 100 mg QHS PO 09/17/20 21:00 09/22/20 18:34 DC 09/21/20 20:53 Sertraline HCl (Zoloft) 100 mg DAILY@1700 PO 09/17/20 17:00 10/16/20 17:00 Trazodone HCl (Desyrel) 50 mg PRN QHS PRN PO INSOMNIA, MAY REPEAT X1 09/17/20 16:15 10/14/20 19:47 Loperamide HCl (Imodium) 2 mg PRN Q15MIN PRN PO DIARRHEA 09/17/20 16:30 Multivitamins/ Calcium (Thera-M Plus) 1 tab DAILY PO 09/18/20 09:00 10/15/20 08:15 Pantoprazole Sodium (Protonix) 40 mg DAILYAC PO 09/18/20 07:30 10/15/20 08:14 Potassium Chloride (Klor-Con) 10 meq QODAY PO 09/19/20 09:00 09/23/20 11:34 DC 09/21/20 08:08 Quetiapine Fumarate (SEROquel) 75 mg QHS PO 09/22/20 21:00 10/16/20 20:12 Quetiapine Fumarate (SEROquel) 50 mg 0900,1700 PO 09/23/20 09:00 10/12/20 22:27 DC 10/12/20 17:16 Quetiapine Fumarate (SEROquel) 37.5 mg 1300 PO 09/23/20 13:00 10/07/20 20:56 DC 10/07/20 12:05 Potassium Chloride (Klor-Con) 20 meq 1300 PO 09/23/20 13:00 09/23/20 19:08 DC 09/23/20 12:03 Furosemide (Lasix) 80 mg 1300 PO 09/23/20 13:00 09/23/20 19:08 DC 09/23/20 12:03 Furosemide (Lasix) 80 mg DAILY PO 09/24/20 09:00 10/02/20 17:26 DC 10/02/20 08:24 Potassium Chloride (Klor-Con) 20 meq DAILY PO 09/24/20 09:00 09/30/20 17:27 DC 09/30/20 08:27 Carbamazepine (TEGretol) 100 mg DAILY@0900,1700 PO 09/25/20 20:15 09/29/20 00:02 DC 09/28/20 17:26 Carbamazepine (TEGretol) 100 mg DAILY PO 09/29/20 09:00 10/02/20 16:45 DC 10/01/20 17:14 Carbamazepine (TEGretol) 200 mg DAILYWSUP PO 09/29/20 17:00 10/16/20 17:00 Potassium Chloride (Klor-Con) 20 meq BID PO 09/30/20 18:00 09/30/20 17:31 DC Metolazone (Zaroxolyn) 2.5 mg DAILY PO 10/01/20 09:00 10/02/20 17:26 DC 10/02/20 08:23 Potassium Chloride (Klor-Con) 20 meq BIDWMEALS PO 09/30/20 18:00 10/16/20 17:00 Carbamazepine (TEGretol) 200 mg DAILY PO 10/03/20 09:00 10/16/20 08:08 Furosemide (Lasix) 40 mg DAILY PO 10/03/20 09:00 10/16/20 08:07 Quetiapine Fumarate (SEROquel) 50 mg 1300 PO 10/07/20 13:00 10/07/20 21:01 DC Melatonin (Melatonin) 3 mg HS PO 10/07/20 21:00 10/16/20 20:12 Quetiapine Fumarate (SEROquel) 50 mg 1300 PO 10/08/20 13:00 10/15/20 17:50 DC 10/15/20 12:11 Prazosin HCl (Minipress) 2 mg HS PO 10/09/20 21:00 10/16/20 20:13 Quetiapine Fumarate (SEROquel) 62.5 mg 0900,1700 PO 10/13/20 09:00 10/15/20 17:50 DC 10/15/20 17:04 Quetiapine Fumarate (SEROquel) 62.5 mg 0900,1300,1700 PO 10/16/20 09:00 10/16/20 17:00 Quetiapine Fumarate (SEROquel) 12.5 mg 1X ONCE PO 10/15/20 18:00 10/15/20 18:03 DC 10/15/20 18:14 Current Medications Medications (Trade) Dose Ordered Sig/Abundio Route PRN Reason Start Time Stop Time Status Last Admin Dose Admin Quetiapine Fumarate (SEROquel) 62.5 mg 0900,1300,1700 PO 10/16/20 09:00 10/16/20 17:00 I have reviewed the current psychotropics carefully including drug interactions. Risk benefit ratio favors no change other than as noted in my dictated progress note. Diagnosis: Problems: (1) Impulse control disorder, unspecified (2) PTSD (post-traumatic stress disorder) (3) Anxiety disorder, unspecified (4) Dementia, vascular, with depression (5) Dementia, vascular, with delusions (6) Dementia in Alzheimer's disease with depression (7) Dementia in Alzheimer's disease with delusions (8) Dementia of the Alzheimer's type with early onset with behavioral disturbance (9) Major neurocognitive disorder DUANE NINO MD Oct 16, 2020 21:58
--- NOTE | 2020-10-16 22:44 | NUR ---
This evening pt quietly wandered the halls or sat in a room. He took meds crushed in pudding and was cooperative with cares. Since going to bed teresa has been sleeping.
[2020-10-17 06:09] VITALS: BP 121/72
[2020-10-17] MEDS: PANTOPRAZOLE 40 MG TABLET. PO SCH (07:30)
[2020-10-17] MEDS: POTASSIUM CHLORIDE 20 MEQ TABLET.ER. PO SCH (08:00)
[2020-10-17] MEDS: MULTIVITAMIN with MINERAL TABLET. PO SCH (08:32)
[2020-10-17] MEDS: ACETAMINOPHEN 325 MG TABLET PO SCH (08:33)
--- NOTE | 2020-10-17 08:33 | NUR ---
Multivitamin, acetaminophen, and pantroprazole held from morning meds d/t difficultly with pt consuming and finishing all medications crushed/mixed in pudding. Priority administration given to Quetiapine, Aspirin, Carbamazepine, Furosemide, and Potassium. Pt's PAINAD score is 0, no signs of distress at this time.
[2020-10-17] MEDS: FUROSEMIDE 40 MG TABLET PO SCH (09:00)
[2020-10-17] MEDS: ASPIRIN CHEWABLE 81 MG TABLET. PO SCH (09:00)
[2020-10-17] MEDS: carBAMazepine 200 MG TABLET PO SCH (09:00)
[2020-10-17] MEDS: QUEtiapine 25 MG TABLET. PO SCH (09:00)
--- NOTE | 2020-10-17 09:01 | PDOC ---
Exam Note: Raman Note: This note is a late entry for 10/14/2020 covers elements not covered in my initial note. Subjective: The patient was seen face to face in the evening of 10/14/2020 with Sandra MONTEMAYOR, discussed and reviewed the chart. The patient slept 7 hours previous night. The patient has been confused, somewhat intrusive, gets into the space of other patients but does redirect. Review of Systems: No CV, , pulmonary, eye, ENT system symptoms on review. Reliability poor. Mental Status Exam: The patient is oriented to himself. Insight and judgment, recent and remote memory, attention and concentration, fund of knowledge is poor consistent with his diagnoses. Laboratory Data: Reviewed. Impression: Major neurocognitive disorder Alzheimer vascular with delusion, depression, and behavioral disturbance. Anxiety disorder unspecified. Impulse control disorder unspecified. PTSD. Plan: No change from initial note. Assessment: Vital Signs/I&O: Vital Signs Date Time Temp Pulse Resp B/P (MAP) Pulse Ox O2 Delivery O2 Flow Rate FiO2 10/17/20 06:09 97.1 72 18 121/72 (88) 96 10/16/20 04:00 Room Air I & O 10/16/20 10/16/20 10/17/20 15:00 23:00 07:00 Intake Total 480 ml 360 ml Balance 480 ml 360 ml Current Medications: Meds: Current Medications Medications (Trade) Dose Ordered Sig/Abundio Route PRN Reason Start Time Stop Time Status Last Admin Dose Admin Acetaminophen (Tylenol) 650 mg PRN Q6HRS PRN PO MILD PAIN / TEMP > 100.3'F 09/17/20 15:30 09/21/20 07:53 DC 09/20/20 20:31 Multi-Ingredient Ointment (Analgesic [place]) 1 will PRN QID PRN TP 1ST CHOICE MUSCLE PAIN 09/17/20 15:30 Al Hydroxide/Mg Hydroxide (Mylanta Plus Xs) 15 ml PRN AFTMEALHC PRN PO DYSPEPSIA 09/17/20 15:30 Magnesium Hydroxide (Milk Of Magnesia) 2,400 mg PRN QHS PRN PO 1st choice CONSTIPATION 09/17/20 15:30 10/12/20 20:16 Acetaminophen (Tylenol) 650 mg BID PO 09/17/20 21:00 10/16/20 20:12 Acetaminophen (Tylenol) 650 mg PRN Q6HRS PRN PO MILD PAIN 1-3/ TEMP 09/17/20 16:15 Aspirin (Aspirin Chewable) 81 mg DAILY PO 09/18/20 09:00 10/16/20 08:08 Atorvastatin Calcium (Lipitor) 10 mg QHS PO 09/17/20 21:00 10/16/20 20:11 Bisacodyl (Dulcolax Supp) 10 mg PRN DAILY PRN RC 2nd choice CONSTIPATION 09/17/20 16:15 Diclofenac Sodium (Voltaren) 1 will PRN Q8HRS PRN TP 2ND CHOICE MUSCLE PAIN 09/17/20 16:15 Divalproex Sodium (Depakote Er) 750 mg QHS PO 09/17/20 21:00 09/23/20 18:19 DC 09/22/20 20:42 Lorazepam (Ativan) 0.5 mg PRN BID PRN PO 1ST CHOICE ANXIETY 09/17/20 16:15 10/16/20 17:14 Mirtazapine (Remeron) 15 mg QHS PO 09/17/20 21:00 10/16/20 20:11 Olanzapine (ZyPREXA ZYDIS) 2.5 mg PRN Q2HR PRN PO 2ND CHOICE ANXIETY / AGITATION 09/17/20 16:15 10/14/20 19:48 Oxycodone/ Acetaminophen (Percocet 7.5/ 325) 1 tab PRN Q8HRS PRN PO MOD-SEVERE PAIN 09/17/20 16:15 10/16/20 03:24 Artificial Tears (Artificial Tears) 1 drop PRN Q15MIN PRN OU DRY EYE 09/17/20 16:15 Prazosin HCl (Minipress) 3 mg QHS PO 09/17/20 21:00 10/08/20 22:34 DC 10/07/20 20:01 Quetiapine Fumarate (SEROquel) 37.5 mg 0900,1300,1700 PO 09/17/20 17:00 09/22/20 18:34 DC 09/22/20 16:14 Quetiapine Fumarate (SEROquel) 50 mg PRN DAILY PRN PO 3RD CHOICE ANXIETY / AGITATION 09/17/20 16:15 Quetiapine Fumarate (SEROquel) 100 mg QHS PO 09/17/20 21:00 09/22/20 18:34 DC 09/21/20 20:53 Sertraline HCl (Zoloft) 100 mg DAILY@1700 PO 09/17/20 17:00 10/16/20 17:00 Trazodone HCl (Desyrel) 50 mg PRN QHS PRN PO INSOMNIA, MAY REPEAT X1 09/17/20 16:15 10/14/20 19:47 Loperamide HCl (Imodium) 2 mg PRN Q15MIN PRN PO DIARRHEA 09/17/20 16:30 Multivitamins/ Calcium (Thera-M Plus) 1 tab DAILY PO 09/18/20 09:00 10/15/20 08:15 Pantoprazole Sodium (Protonix) 40 mg DAILYAC PO 09/18/20 07:30 10/15/20 08:14 Potassium Chloride (Klor-Con) 10 meq QODAY PO 09/19/20 09:00 09/23/20 11:34 DC 09/21/20 08:08 Quetiapine Fumarate (SEROquel) 75 mg QHS PO 09/22/20 21:00 10/16/20 20:12 Quetiapine Fumarate (SEROquel) 50 mg 0900,1700 PO 09/23/20 09:00 10/12/20 22:27 DC 10/12/20 17:16 Quetiapine Fumarate (SEROquel) 37.5 mg 1300 PO 09/23/20 13:00 10/07/20 20:56 DC 10/07/20 12:05 Potassium Chloride (Klor-Con) 20 meq 1300 PO 09/23/20 13:00 09/23/20 19:08 DC 09/23/20 12:03 Furosemide (Lasix) 80 mg 1300 PO 09/23/20 13:00 09/23/20 19:08 DC 09/23/20 12:03 Furosemide (Lasix) 80 mg DAILY PO 09/24/20 09:00 10/02/20 17:26 DC 10/02/20 08:24 Potassium Chloride (Klor-Con) 20 meq DAILY PO 09/24/20 09:00 09/30/20 17:27 DC 09/30/20 08:27 Carbamazepine (TEGretol) 100 mg DAILY@0900,1700 PO 09/25/20 20:15 09/29/20 00:02 DC 09/28/20 17:26 Carbamazepine (TEGretol) 100 mg DAILY PO 09/29/20 09:00 10/02/20 16:45 DC 10/01/20 17:14 Carbamazepine (TEGretol) 200 mg DAILYWSUP PO 09/29/20 17:00 10/16/20 17:00 Potassium Chloride (Klor-Con) 20 meq BID PO 09/30/20 18:00 09/30/20 17:31 DC Metolazone (Zaroxolyn) 2.5 mg DAILY PO 10/01/20 09:00 10/02/20 17:26 DC 10/02/20 08:23 Potassium Chloride (Klor-Con) 20 meq BIDWMEALS PO 09/30/20 18:00 10/16/20 17:00 Carbamazepine (TEGretol) 200 mg DAILY PO 10/03/20 09:00 10/16/20 08:08 Furosemide (Lasix) 40 mg DAILY PO 10/03/20 09:00 10/16/20 08:07 Quetiapine Fumarate (SEROquel) 50 mg 1300 PO 10/07/20 13:00 10/07/20 21:01 DC Melatonin (Melatonin) 3 mg HS PO 10/07/20 21:00 10/16/20 20:12 Quetiapine Fumarate (SEROquel) 50 mg 1300 PO 10/08/20 13:00 10/15/20 17:50 DC 10/15/20 12:11 Prazosin HCl (Minipress) 2 mg HS PO 10/09/20 21:00 10/16/20 20:13 Quetiapine Fumarate (SEROquel) 62.5 mg 0900,1700 PO 10/13/20 09:00 10/15/20 17:50 DC 10/15/20 17:04 Quetiapine Fumarate (SEROquel) 62.5 mg 0900,1300,1700 PO 10/16/20 09:00 10/16/20 17:00 Quetiapine Fumarate (SEROquel) 12.5 mg 1X ONCE PO 10/15/20 18:00 10/15/20 18:03 DC 10/15/20 18:14 I have reviewed the current psychotropics carefully including drug interactions. Risk benefit ratio favors no change other than as noted in my dictated progress note. Diagnosis: Problems: (1) Impulse control disorder, unspecified (2) PTSD (post-traumatic stress disorder) (3) Anxiety disorder, unspecified (4) Dementia, vascular, with depression (5) Dementia, vascular, with delusions (6) Dementia in Alzheimer's disease with depression (7) Dementia in Alzheimer's disease with delusions (8) Dementia of the Alzheimer's type with early onset with behavioral disturbance (9) Major neurocognitive disorder DUANE NINO MD Oct 17, 2020 09:01
--- NOTE | 2020-10-17 09:11 | NUR ---
Pt confused and disorganized this shift; A&O to self only. He was initially med compliant but refused to eat any more medications crushed/mixed in pudding after 1 bite. Absent to SI/HI/VH/AH/pain. Absent of verbal/physical aggression at this time. Periodically wandering around and door checking, but not overtly exit seeking. Plan of care continues, preparing for d/c.
--- NOTE | 2020-10-17 09:25 | PDOC ---
Exam Note: Raman Note: This note is a late entry for 10/15/2020 covers elements not covered in my initial note. Subjective: The patient was seen face to face in the evening of 10/15/2020 with Marifer MONTEMAYOR, discussed and reviewed the chart. The patient slept 5 hours previous night. The patient remains confused, but has had a good day. Previous night he was somewhat intrusive, resistive to medications. In the middle of the night he is asking for cookies. He did get trazodone and p.r.n. Percocet and 3.30 a.m. He urinated in the hallway, redirected. Review of Systems: No CV, , pulmonary, eye, ENT system symptoms on review. Reliability poor. Mental Status Exam: The patient is oriented to himself. Insight and judgment, recent and remote memory, attention and concentration, fund of knowledge is poor consistent with his diagnoses. Laboratory Data: Reviewed. Impression: Major neurocognitive disorder Alzheimer vascular with delusion, depression, and behavioral disturbance. Anxiety disorder unspecified. Impulse control disorder unspecified. PTSD. Plan: No change from initial note but we will increase the 1 oclock Seroquel from 50 mg to 62.5 mg to help with the daytime agitation. Maintain rest unchang ed. Assessment: Vital Signs/I&O: Vital Signs Date Time Temp Pulse Resp B/P (MAP) Pulse Ox O2 Delivery O2 Flow Rate FiO2 10/17/20 06:09 97.1 72 18 121/72 (88) 96 10/16/20 04:00 Room Air I & O 10/16/20 10/16/20 10/17/20 15:00 23:00 07:00 Intake Total 480 ml 360 ml Balance 480 ml 360 ml Current Medications: Meds: Current Medications Medications (Trade) Dose Ordered Sig/Abundio Route PRN Reason Start Time Stop Time Status Last Admin Dose Admin Acetaminophen (Tylenol) 650 mg PRN Q6HRS PRN PO MILD PAIN / TEMP > 100.3'F 09/17/20 15:30 09/21/20 07:53 DC 09/20/20 20:31 Multi-Ingredient Ointment (Analgesic [place]) 1 will PRN QID PRN TP 1ST CHOICE MUSCLE PAIN 09/17/20 15:30 Al Hydroxide/Mg Hydroxide (Mylanta Plus Xs) 15 ml PRN AFTMEALHC PRN PO DYSPEPSIA 09/17/20 15:30 Magnesium Hydroxide (Milk Of Magnesia) 2,400 mg PRN QHS PRN PO 1st choice CONSTIPATION 09/17/20 15:30 10/12/20 20:16 Acetaminophen (Tylenol) 650 mg BID PO 09/17/20 21:00 10/16/20 20:12 Acetaminophen (Tylenol) 650 mg PRN Q6HRS PRN PO MILD PAIN 1-3/ TEMP 09/17/20 16:15 Aspirin (Aspirin Chewable) 81 mg DAILY PO 09/18/20 09:00 10/17/20 09:00 Atorvastatin Calcium (Lipitor) 10 mg QHS PO 09/17/20 21:00 10/16/20 20:11 Bisacodyl (Dulcolax Supp) 10 mg PRN DAILY PRN RC 2nd choice CONSTIPATION 09/17/20 16:15 Diclofenac Sodium (Voltaren) 1 will PRN Q8HRS PRN TP 2ND CHOICE MUSCLE PAIN 09/17/20 16:15 Divalproex Sodium (Depakote Er) 750 mg QHS PO 09/17/20 21:00 09/23/20 18:19 DC 09/22/20 20:42 Lorazepam (Ativan) 0.5 mg PRN BID PRN PO 1ST CHOICE ANXIETY 09/17/20 16:15 10/16/20 17:14 Mirtazapine (Remeron) 15 mg QHS PO 09/17/20 21:00 10/16/20 20:11 Olanzapine (ZyPREXA ZYDIS) 2.5 mg PRN Q2HR PRN PO 2ND CHOICE ANXIETY / AGITATION 09/17/20 16:15 10/14/20 19:48 Oxycodone/ Acetaminophen (Percocet 7.5/ 325) 1 tab PRN Q8HRS PRN PO MOD-SEVERE PAIN 09/17/20 16:15 10/16/20 03:24 Artificial Tears (Artificial Tears) 1 drop PRN Q15MIN PRN OU DRY EYE 09/17/20 16:15 Prazosin HCl (Minipress) 3 mg QHS PO 09/17/20 21:00 10/08/20 22:34 DC 10/07/20 20:01 Quetiapine Fumarate (SEROquel) 37.5 mg 0900,1300,1700 PO 09/17/20 17:00 09/22/20 18:34 DC 09/22/20 16:14 Quetiapine Fumarate (SEROquel) 50 mg PRN DAILY PRN PO 3RD CHOICE ANXIETY / AGITATION 09/17/20 16:15 Quetiapine Fumarate (SEROquel) 100 mg QHS PO 09/17/20 21:00 09/22/20 18:34 DC 09/21/20 20:53 Sertraline HCl (Zoloft) 100 mg DAILY@1700 PO 09/17/20 17:00 10/16/20 17:00 Trazodone HCl (Desyrel) 50 mg PRN QHS PRN PO INSOMNIA, MAY REPEAT X1 09/17/20 16:15 10/14/20 19:47 Loperamide HCl (Imodium) 2 mg PRN Q15MIN PRN PO DIARRHEA 09/17/20 16:30 Multivitamins/ Calcium (Thera-M Plus) 1 tab DAILY PO 09/18/20 09:00 10/15/20 08:15 Pantoprazole Sodium (Protonix) 40 mg DAILYAC PO 09/18/20 07:30 10/15/20 08:14 Potassium Chloride (Klor-Con) 10 meq QODAY PO 09/19/20 09:00 09/23/20 11:34 DC 09/21/20 08:08 Quetiapine Fumarate (SEROquel) 75 mg QHS PO 09/22/20 21:00 10/16/20 20:12 Quetiapine Fumarate (SEROquel) 50 mg 0900,1700 PO 09/23/20 09:00 10/12/20 22:27 DC 10/12/20 17:16 Quetiapine Fumarate (SEROquel) 37.5 mg 1300 PO 09/23/20 13:00 10/07/20 20:56 DC 10/07/20 12:05 Potassium Chloride (Klor-Con) 20 meq 1300 PO 09/23/20 13:00 09/23/20 19:08 DC 09/23/20 12:03 Furosemide (Lasix) 80 mg 1300 PO 09/23/20 13:00 09/23/20 19:08 DC 09/23/20 12:03 Furosemide (Lasix) 80 mg DAILY PO 09/24/20 09:00 10/02/20 17:26 DC 10/02/20 08:24 Potassium Chloride (Klor-Con) 20 meq DAILY PO 09/24/20 09:00 09/30/20 17:27 DC 09/30/20 08:27 Carbamazepine (TEGretol) 100 mg DAILY@0900,1700 PO 09/25/20 20:15 09/29/20 00:02 DC 09/28/20 17:26 Carbamazepine (TEGretol) 100 mg DAILY PO 09/29/20 09:00 10/02/20 16:45 DC 10/01/20 17:14 Carbamazepine (TEGretol) 200 mg DAILYWSUP PO 09/29/20 17:00 10/16/20 17:00 Potassium Chloride (Klor-Con) 20 meq BID PO 09/30/20 18:00 09/30/20 17:31 DC Metolazone (Zaroxolyn) 2.5 mg DAILY PO 10/01/20 09:00 10/02/20 17:26 DC 10/02/20 08:23 Potassium Chloride (Klor-Con) 20 meq BIDWMEALS PO 09/30/20 18:00 10/17/20 08:00 Carbamazepine (TEGretol) 200 mg DAILY PO 10/03/20 09:00 10/17/20 09:00 Furosemide (Lasix) 40 mg DAILY PO 10/03/20 09:00 10/17/20 09:00 Quetiapine Fumarate (SEROquel) 50 mg 1300 PO 10/07/20 13:00 10/07/20 21:01 DC Melatonin (Melatonin) 3 mg HS PO 10/07/20 21:00 10/16/20 20:12 Quetiapine Fumarate (SEROquel) 50 mg 1300 PO 10/08/20 13:00 10/15/20 17:50 DC 10/15/20 12:11 Prazosin HCl (Minipress) 2 mg HS PO 10/09/20 21:00 10/16/20 20:13 Quetiapine Fumarate (SEROquel) 62.5 mg 0900,1700 PO 10/13/20 09:00 10/15/20 17:50 DC 10/15/20 17:04 Quetiapine Fumarate (SEROquel) 62.5 mg 0900,1300,1700 PO 10/16/20 09:00 10/17/20 09:00 Quetiapine Fumarate (SEROquel) 12.5 mg 1X ONCE PO 10/15/20 18:00 10/15/20 18:03 DC 10/15/20 18:14 I have reviewed the current psychotropics carefully including drug interactions. Risk benefit ratio favors no change other than as noted in my dictated progress note. Diagnosis: Problems: (1) Impulse control disorder, unspecified (2) PTSD (post-traumatic stress disorder) (3) Anxiety disorder, unspecified (4) Dementia, vascular, with depression (5) Dementia, vascular, with delusions (6) Dementia in Alzheimer's disease with depression (7) Dementia in Alzheimer's disease with delusions (8) Dementia of the Alzheimer's type with early onset with behavioral disturbance (9) Major neurocognitive disorder DUANE NINO MD Oct 17, 2020 09:25
--- NOTE | 2020-10-17 10:32 | PDOC ---
Exam Note: Raman Note: This note is a late entry for 10/16/2020 covers elements not covered in my initial note. Subjective: The patient was seen face to face in the evening of 10/16/2020 with Maddie MONTEMAYOR, discussed and reviewed the chart. The patient slept 6-1/4 hours previous night. The patient remains confused. He takes medications in yogurt. He often refuses it. He received p.r.n. Ativan x2 for anxiety. He still remains somewhat intrusive with other patients. Review of Systems: No CV, , pulmonary, eye, ENT system symptoms on review. Reliability poor. Mental Status Exam: The patient is oriented to himself. Insight and judgment, recent and remote memory, attention and concentration, fund of knowledge is poor consistent with his diagnoses. Laboratory Data: Reviewed. Impression: Major neurocognitive disorder Alzheimer vascular with delusion, depression, and behavioral disturbance. Anxiety disorder unspecified. Impulse control disorder unspecified. PTSD. Plan: No change from initial note. We will plan on discharge to alf tomorrow. Assessment: Vital Signs/I&O: Vital Signs Date Time Temp Pulse Resp B/P (MAP) Pulse Ox O2 Delivery O2 Flow Rate FiO2 10/17/20 06:09 97.1 72 18 121/72 (88) 96 10/16/20 04:00 Room Air I & O 10/16/20 10/16/20 10/17/20 15:00 23:00 07:00 Intake Total 480 ml 360 ml Balance 480 ml 360 ml Current Medications: Meds: Current Medications Medications (Trade) Dose Ordered Sig/Abundio Route PRN Reason Start Time Stop Time Status Last Admin Dose Admin Acetaminophen (Tylenol) 650 mg PRN Q6HRS PRN PO MILD PAIN / TEMP > 100.3'F 09/17/20 15:30 09/21/20 07:53 DC 09/20/20 20:31 Multi-Ingredient Ointment (Analgesic [place]) 1 will PRN QID PRN TP 1ST CHOICE MUSCLE PAIN 09/17/20 15:30 Al Hydroxide/Mg Hydroxide (Mylanta Plus Xs) 15 ml PRN AFTMEALHC PRN PO DYSPEPSIA 09/17/20 15:30 Magnesium Hydroxide (Milk Of Magnesia) 2,400 mg PRN QHS PRN PO 1st choice CONSTIPATION 09/17/20 15:30 10/12/20 20:16 Acetaminophen (Tylenol) 650 mg BID PO 09/17/20 21:00 10/16/20 20:12 Acetaminophen (Tylenol) 650 mg PRN Q6HRS PRN PO MILD PAIN 1-3/ TEMP 09/17/20 16:15 Aspirin (Aspirin Chewable) 81 mg DAILY PO 09/18/20 09:00 10/17/20 09:00 Atorvastatin Calcium (Lipitor) 10 mg QHS PO 09/17/20 21:00 10/16/20 20:11 Bisacodyl (Dulcolax Supp) 10 mg PRN DAILY PRN RC 2nd choice CONSTIPATION 09/17/20 16:15 Diclofenac Sodium (Voltaren) 1 will PRN Q8HRS PRN TP 2ND CHOICE MUSCLE PAIN 09/17/20 16:15 Divalproex Sodium (Depakote Er) 750 mg QHS PO 09/17/20 21:00 09/23/20 18:19 DC 09/22/20 20:42 Lorazepam (Ativan) 0.5 mg PRN BID PRN PO 1ST CHOICE ANXIETY 09/17/20 16:15 10/16/20 17:14 Mirtazapine (Remeron) 15 mg QHS PO 09/17/20 21:00 10/16/20 20:11 Olanzapine (ZyPREXA ZYDIS) 2.5 mg PRN Q2HR PRN PO 2ND CHOICE ANXIETY / AGITATION 09/17/20 16:15 10/14/20 19:48 Oxycodone/ Acetaminophen (Percocet 7.5/ 325) 1 tab PRN Q8HRS PRN PO MOD-SEVERE PAIN 09/17/20 16:15 10/16/20 03:24 Artificial Tears (Artificial Tears) 1 drop PRN Q15MIN PRN OU DRY EYE 09/17/20 16:15 Prazosin HCl (Minipress) 3 mg QHS PO 09/17/20 21:00 10/08/20 22:34 DC 10/07/20 20:01 Quetiapine Fumarate (SEROquel) 37.5 mg 0900,1300,1700 PO 09/17/20 17:00 09/22/20 18:34 DC 09/22/20 16:14 Quetiapine Fumarate (SEROquel) 50 mg PRN DAILY PRN PO 3RD CHOICE ANXIETY / AGITATION 09/17/20 16:15 Quetiapine Fumarate (SEROquel) 100 mg QHS PO 09/17/20 21:00 09/22/20 18:34 DC 09/21/20 20:53 Sertraline HCl (Zoloft) 100 mg DAILY@1700 PO 09/17/20 17:00 10/16/20 17:00 Trazodone HCl (Desyrel) 50 mg PRN QHS PRN PO INSOMNIA, MAY REPEAT X1 09/17/20 16:15 10/14/20 19:47 Loperamide HCl (Imodium) 2 mg PRN Q15MIN PRN PO DIARRHEA 09/17/20 16:30 Multivitamins/ Calcium (Thera-M Plus) 1 tab DAILY PO 09/18/20 09:00 10/15/20 08:15 Pantoprazole Sodium (Protonix) 40 mg DAILYAC PO 09/18/20 07:30 10/15/20 08:14 Potassium Chloride (Klor-Con) 10 meq QODAY PO 09/19/20 09:00 09/23/20 11:34 DC 09/21/20 08:08 Quetiapine Fumarate (SEROquel) 75 mg QHS PO 09/22/20 21:00 10/16/20 20:12 Quetiapine Fumarate (SEROquel) 50 mg 0900,1700 PO 09/23/20 09:00 10/12/20 22:27 DC 10/12/20 17:16 Quetiapine Fumarate (SEROquel) 37.5 mg 1300 PO 09/23/20 13:00 10/07/20 20:56 DC 10/07/20 12:05 Potassium Chloride (Klor-Con) 20 meq 1300 PO 09/23/20 13:00 09/23/20 19:08 DC 09/23/20 12:03 Furosemide (Lasix) 80 mg 1300 PO 09/23/20 13:00 09/23/20 19:08 DC 09/23/20 12:03 Furosemide (Lasix) 80 mg DAILY PO 09/24/20 09:00 10/02/20 17:26 DC 10/02/20 08:24 Potassium Chloride (Klor-Con) 20 meq DAILY PO 09/24/20 09:00 09/30/20 17:27 DC 09/30/20 08:27 Carbamazepine (TEGretol) 100 mg DAILY@0900,1700 PO 09/25/20 20:15 09/29/20 00:02 DC 09/28/20 17:26 Carbamazepine (TEGretol) 100 mg DAILY PO 09/29/20 09:00 10/02/20 16:45 DC 10/01/20 17:14 Carbamazepine (TEGretol) 200 mg DAILYWSUP PO 09/29/20 17:00 10/16/20 17:00 Potassium Chloride (Klor-Con) 20 meq BID PO 09/30/20 18:00 09/30/20 17:31 DC Metolazone (Zaroxolyn) 2.5 mg DAILY PO 10/01/20 09:00 10/02/20 17:26 DC 10/02/20 08:23 Potassium Chloride (Klor-Con) 20 meq BIDWMEALS PO 09/30/20 18:00 10/17/20 08:00 Carbamazepine (TEGretol) 200 mg DAILY PO 10/03/20 09:00 10/17/20 09:00 Furosemide (Lasix) 40 mg DAILY PO 10/03/20 09:00 10/17/20 09:00 Quetiapine Fumarate (SEROquel) 50 mg 1300 PO 10/07/20 13:00 10/07/20 21:01 DC Melatonin (Melatonin) 3 mg HS PO 10/07/20 21:00 10/16/20 20:12 Quetiapine Fumarate (SEROquel) 50 mg 1300 PO 10/08/20 13:00 10/15/20 17:50 DC 10/15/20 12:11 Prazosin HCl (Minipress) 2 mg HS PO 10/09/20 21:00 10/16/20 20:13 Quetiapine Fumarate (SEROquel) 62.5 mg 0900,1700 PO 10/13/20 09:00 10/15/20 17:50 DC 10/15/20 17:04 Quetiapine Fumarate (SEROquel) 62.5 mg 0900,1300,1700 PO 10/16/20 09:00 10/17/20 09:00 Quetiapine Fumarate (SEROquel) 12.5 mg 1X ONCE PO 10/15/20 18:00 10/15/20 18:03 DC 10/15/20 18:14 I have reviewed the current psychotropics carefully including drug interactions. Risk benefit ratio favors no change other than as noted in my dictated progress note. Diagnosis: Problems: (1) Impulse control disorder, unspecified (2) PTSD (post-traumatic stress disorder) (3) Anxiety disorder, unspecified (4) Dementia, vascular, with depression (5) Dementia, vascular, with delusions (6) Dementia in Alzheimer's disease with depression (7) Dementia in Alzheimer's disease with delusions (8) Dementia of the Alzheimer's type with early onset with behavioral disturbance (9) Major neurocognitive disorder DUANE NINO MD Oct 17, 2020 10:32
--- NOTE | 2020-10-17 11:43 | NUR ---
Transition Record was faxed to follow-up provider with the following elements: Reason for admission, procedures, tests, principal diagnosis, pending studies, patient instructions, 08/09 contact information for unit, phone number to obtain pending test results, plan for follow-up care, physician follow-up, advanced directive information, and medication list with dose, duration and instructions. This information was included in the following documents: History and physical, lab results, study results, progress notes, social work planning form, DC instruction form, patient visit summary, and medication reconciliation form. Date & time record faxed: 10/16/20 0059 [phone][facility] Record discussed with/ report given to: Caryl LÓPEZ at [facility] ( )
--- NOTE | 2020-10-18 22:00 | DS ---
DATE OF DISCHARGE: 10/17/2020 DISCHARGE SUMMARY/PSYCHIATRIC PROGRESS NOTE This is a late entry, date of service 10/17/2020 covers elements not covered in my initial note. REASON FOR ADMISSION: Please refer to the admission history for details. Briefly, the patient is a 79-year-old male referred to us from [facility] by his primary care physician with progressively worsening symptoms of major neurocognitive disorder, Alzheimer, vascular with delusion, depression, behavioral disturbance, along with PTSD. The patient had been combative, agitated, delusional. He was on the skilled service having increasingly disruptive behavior, patient's psychiatric interventions resulting in this referral. SIGNIFICANT FINDINGS AND CLINICAL COURSE: Following admission, the patient was seen daily individually by myself from a psychiatric standpoint, medical followup with Dr. Pappas/Dr. Weber. The patient remained confused, agitated, somewhat paranoid, easily startled consistent with PTSD. Adjustments were made in his psychotropics and he seemed to respond to a combination of Seroquel 25 mg 0900, 1300, 1700 and 75 mg at bedtime. In fact, the Seroquel dosage was 62.5 mg at 0900, 1300, 1700 and was 75 mg at bedtime. He is also on prazosin 2 mg at bedtime for PTSD, Remeron 15 mg at bedtime for insomnia, Zoloft 100 mg a day, Tegretol as a mood stabilizer 200 mg twice a day, melatonin 3 mg at bedtime, trazodone 50 mg at bedtime p.r.n., Zyprexa and Ativan p.r.n. REVIEW OF SYSTEMS: Prior to discharge, No CV, , pulmonary, eye, ENT system symptoms on review. Reliability poor. MENTAL STATUS EXAMINATION: Oriented to himself. Insight, judgment, recent and remote memory, attention, concentration, fund of knowledge poor consistent with his diagnoses. FINAL DIAGNOSES: Major neurocognitive disorder, Alzheimer, vascular with delusion, depression, behavioral disturbance, anxiety disorder, unspecified; impulse control disorder, unspecified; posttraumatic stress disorder. Rest unchanged from admission. DISCHARGE MEDICATIONS: Please refer to the MRAD. DISCHARGE INSTRUCTIONS: Outpatient psychiatric and medical followup at the [facility]. Time for discharge day management greater than [address]: Judd TID: [id number]
--- NOTE | 2020-10-18 22:04 | PDOC ---
Exam Note: Raman Note: Late entry for date of discharge 10/17/2020. Please also refer to the separate dictated note~for this date of service dictated separately.~Patient seen individually. Discussed the patient with Nursing staff reviewed the chart.~Reviewed interim history and current functioning. Reviewed vital signs,~Labs/ Radiology~and current medications noted below. Continue current treatment with the changes noted in the dictated addendum note Assessment: Vital Signs/I&O: Vital Signs Date Time Temp Pulse Resp B/P (MAP) Pulse Ox O2 Delivery O2 Flow Rate FiO2 10/17/20 06:09 97.1 72 18 121/72 (88) 96 10/16/20 04:00 Room Air I & O 10/17/20 10/17/20 10/18/20 15:00 23:00 07:00 Intake Total 240 ml Balance 240 ml Current Medications: Meds: Current Medications Medications (Trade) Dose Ordered Sig/Abundio Route PRN Reason Start Time Stop Time Status Last Admin Dose Admin Acetaminophen (Tylenol) 650 mg PRN Q6HRS PRN PO MILD PAIN / TEMP > 100.3'F 09/17/20 15:30 09/21/20 07:53 DC 09/20/20 20:31 Multi-Ingredient Ointment (Analgesic [place]) 1 will PRN QID PRN TP 1ST CHOICE MUSCLE PAIN 09/17/20 15:30 10/17/20 11:52 DC Al Hydroxide/Mg Hydroxide (Mylanta Plus Xs) 15 ml PRN AFTMEALHC PRN PO DYSPEPSIA 09/17/20 15:30 10/17/20 11:52 DC Magnesium Hydroxide (Milk Of Magnesia) 2,400 mg PRN QHS PRN PO 1st choice CONSTIPATION 09/17/20 15:30 10/17/20 11:52 DC 10/12/20 20:16 Acetaminophen (Tylenol) 650 mg BID PO 09/17/20 21:00 10/17/20 11:52 DC 10/16/20 20:12 Acetaminophen (Tylenol) 650 mg PRN Q6HRS PRN PO MILD PAIN 1-3/ TEMP 09/17/20 16:15 10/17/20 11:52 DC Aspirin (Aspirin Chewable) 81 mg DAILY PO 09/18/20 09:00 10/17/20 11:52 DC 10/17/20 09:00 Atorvastatin Calcium (Lipitor) 10 mg QHS PO 09/17/20 21:00 10/17/20 11:52 DC 10/16/20 20:11 Bisacodyl (Dulcolax Supp) 10 mg PRN DAILY PRN RC 2nd choice CONSTIPATION 09/17/20 16:15 10/17/20 11:52 DC Diclofenac Sodium (Voltaren) 1 will PRN Q8HRS PRN TP 2ND CHOICE MUSCLE PAIN 09/17/20 16:15 10/17/20 11:52 DC Divalproex Sodium (Depakote Er) 750 mg QHS PO 09/17/20 21:00 09/23/20 18:19 DC 09/22/20 20:42 Lorazepam (Ativan) 0.5 mg PRN BID PRN PO 1ST CHOICE ANXIETY 09/17/20 16:15 10/17/20 11:52 DC 10/16/20 17:14 Mirtazapine (Remeron) 15 mg QHS PO 09/17/20 21:00 10/17/20 11:52 DC 10/16/20 20:11 Olanzapine (ZyPREXA ZYDIS) 2.5 mg PRN Q2HR PRN PO 2ND CHOICE ANXIETY / AGITATION 09/17/20 16:15 10/17/20 11:52 DC 10/14/20 19:48 Oxycodone/ Acetaminophen (Percocet 7.5/ 325) 1 tab PRN Q8HRS PRN PO MOD-SEVERE PAIN 09/17/20 16:15 10/17/20 11:52 DC 10/16/20 03:24 Artificial Tears (Artificial Tears) 1 drop PRN Q15MIN PRN OU DRY EYE 09/17/20 16:15 10/17/20 11:52 DC Prazosin HCl (Minipress) 3 mg QHS PO 09/17/20 21:00 10/08/20 22:34 DC 10/07/20 20:01 Quetiapine Fumarate (SEROquel) 37.5 mg 0900,1300,1700 PO 09/17/20 17:00 09/22/20 18:34 DC 09/22/20 16:14 Quetiapine Fumarate (SEROquel) 50 mg PRN DAILY PRN PO 3RD CHOICE ANXIETY / AGITATION 09/17/20 16:15 10/17/20 11:52 DC Quetiapine Fumarate (SEROquel) 100 mg QHS PO 09/17/20 21:00 09/22/20 18:34 DC 09/21/20 20:53 Sertraline HCl (Zoloft) 100 mg DAILY@1700 PO 09/17/20 17:00 10/17/20 11:52 DC 10/16/20 17:00 Trazodone HCl (Desyrel) 50 mg PRN QHS PRN PO INSOMNIA, MAY REPEAT X1 09/17/20 16:15 10/17/20 11:52 DC 10/14/20 19:47 Loperamide HCl (Imodium) 2 mg PRN Q15MIN PRN PO DIARRHEA 09/17/20 16:30 10/17/20 11:52 DC Multivitamins/ Calcium (Thera-M Plus) 1 tab DAILY PO 09/18/20 09:00 10/17/20 11:52 DC 10/15/20 08:15 Pantoprazole Sodium (Protonix) 40 mg DAILYAC PO 09/18/20 07:30 10/17/20 11:52 DC 10/15/20 08:14 Potassium Chloride (Klor-Con) 10 meq QODAY PO 09/19/20 09:00 09/23/20 11:34 DC 09/21/20 08:08 Quetiapine Fumarate (SEROquel) 75 mg QHS PO 09/22/20 21:00 10/17/20 11:52 DC 10/16/20 20:12 Quetiapine Fumarate (SEROquel) 50 mg 0900,1700 PO 09/23/20 09:00 10/12/20 22:27 DC 10/12/20 17:16 Quetiapine Fumarate (SEROquel) 37.5 mg 1300 PO 09/23/20 13:00 10/07/20 20:56 DC 10/07/20 12:05 Potassium Chloride (Klor-Con) 20 meq 1300 PO 09/23/20 13:00 09/23/20 19:08 DC 09/23/20 12:03 Furosemide (Lasix) 80 mg 1300 PO 09/23/20 13:00 09/23/20 19:08 DC 09/23/20 12:03 Furosemide (Lasix) 80 mg DAILY PO 09/24/20 09:00 10/02/20 17:26 DC 10/02/20 08:24 Potassium Chloride (Klor-Con) 20 meq DAILY PO 09/24/20 09:00 09/30/20 17:27 DC 09/30/20 08:27 Carbamazepine (TEGretol) 100 mg DAILY@0900,1700 PO 09/25/20 20:15 09/29/20 00:02 DC 09/28/20 17:26 Carbamazepine (TEGretol) 100 mg DAILY PO 09/29/20 09:00 10/02/20 16:45 DC 10/01/20 17:14 Carbamazepine (TEGretol) 200 mg DAILYWSUP PO 09/29/20 17:00 10/17/20 11:52 DC 10/16/20 17:00 Potassium Chloride (Klor-Con) 20 meq BID PO 09/30/20 18:00 09/30/20 17:31 DC Metolazone (Zaroxolyn) 2.5 mg DAILY PO 10/01/20 09:00 10/02/20 17:26 DC 10/02/20 08:23 Potassium Chloride (Klor-Con) 20 meq BIDWMEALS PO 09/30/20 18:00 10/17/20 11:52 DC 10/17/20 08:00 Carbamazepine (TEGretol) 200 mg DAILY PO 10/03/20 09:00 10/17/20 11:52 DC 10/17/20 09:00 Furosemide (Lasix) 40 mg DAILY PO 10/03/20 09:00 10/17/20 11:52 DC 10/17/20 09:00 Quetiapine Fumarate (SEROquel) 50 mg 1300 PO 10/07/20 13:00 10/07/20 21:01 DC Melatonin (Melatonin) 3 mg HS PO 10/07/20 21:00 10/17/20 11:52 DC 10/16/20 20:12 Quetiapine Fumarate (SEROquel) 50 mg 1300 PO 10/08/20 13:00 10/15/20 17:50 DC 10/15/20 12:11 Prazosin HCl (Minipress) 2 mg HS PO 10/09/20 21:00 10/17/20 11:52 DC 10/16/20 20:13 Quetiapine Fumarate (SEROquel) 62.5 mg 0900,1700 PO 10/13/20 09:00 10/15/20 17:50 DC 10/15/20 17:04 Quetiapine Fumarate (SEROquel) 62.5 mg 0900,1300,1700 PO 10/16/20 09:00 10/17/20 11:52 DC 10/17/20 09:00 Quetiapine Fumarate (SEROquel) 12.5 mg 1X ONCE PO 10/15/20 18:00 10/15/20 18:03 DC 10/15/20 18:14 I have reviewed the current psychotropics carefully including drug interactions. Risk benefit ratio favors no change other than as noted in my dictated progress note. Diagnosis: Problems: (1) Impulse control disorder, unspecified (2) PTSD (post-traumatic stress disorder) (3) Anxiety disorder, unspecified (4) Dementia, vascular, with depression (5) Dementia, vascular, with delusions (6) Dementia in Alzheimer's disease with depression (7) Dementia in Alzheimer's disease with delusions (8) Dementia of the Alzheimer's type with early onset with behavioral disturbance (9) Major neurocognitive disorder DUANE NINO MD Oct 18, 2020 22:04
[2020-11-01] MEDS ORDERED: POTA20TA4 PO (17:20)
[2020-11-01] MEDS ORDERED: OXYC1TAB19 PO (17:26)
[2020-11-01] MEDS ORDERED: LORA-254 PO (17:26)
[2020-11-01] MEDS ORDERED: QUET50TA5 PO (17:26)
== END 2020-10-17 11:51 | DRG 57 ==
LOC: GEROPSY 13:40
PROVIDERS: ADMIT Psychiatry & Neurology Psychiatry; ATTEND Psychiatry & Neurology Psychiatry
DX: G30.9 Alzheimer's disease, unspecified (principal); F01.51 Vascular dementia, unspecified severity, with behavioral disturbance; F02.81 Dementia in other diseases classified elsewhere, unspecified severity, with behavioral disturbance; F63.9 Impulse disorder, unspecified; E86.0 Dehydration; F32.9 Major depressive disorder, single episode, unspecified; F43.10 Post-traumatic stress disorder, unspecified; G47.00 Insomnia, unspecified; H54.40 Blindness, one eye, unspecified eye; I10 Essential (primary) hypertension; Z66 Do not resuscitate; Z79.899 Other long term (current) drug therapy; Z86.73 Personal history of transient ischemic attack (TIA), and cerebral infarction without residual deficits; K29.70 Gastritis, unspecified, without bleeding
CPT/HCPCS: 36415; 80053; 80156; 81001; 82140; 83735; 85025; 92526; 93970; 92610; 97530

== ENCOUNTER 2020-11-02 10:40 | Inpatient (IN) | payer MEDICARE, OTHER ==
[~2020-11-02] VITALS: Ht 172.7 cm; Wt 67.8 kg
[~2020-11-02 10:40] MED LIST changes: +CARB200T PO; +FURO40TA4 PO; +FURO80TA72 PO; +LORA-254 PO; +MAG-124 PO; +MAGN24003 PO; +MELA3TAB4 PO; +METH57CR17 TP; +METO2.5T PO; +POTA20TA4 PO
[2020-11-02 11:00] VITALS: BP 132/75
[2020-11-02] MEDS ORDERED: MAG HYDROX/AL HYDROX/SIMETH 30 ML ORAL.SUSP PO PRN (11:30)
[2020-11-02] MEDS ORDERED: METHYL SALICYLATE/MENTHOL TOPICAL OINTMENT 57GM TUBE. TP PRN (11:30)
[2020-11-02] MEDS ORDERED: QUEtiapine 50 MG TABLET. PO PRN (12:45)
[2020-11-02] MEDS: QUEtiapine 25 MG TABLET. PO SCH ×2 (13:33→17:43)
[2020-11-02 16:05] VITALS: BP 120/74
[2020-11-02] MEDS: SERTRALINE 100 MG TABLET. PO SCH (17:33)
[2020-11-02] MEDS: carBAMazepine 200 MG TABLET PO SCH (17:33)
[2020-11-02] MEDS: POTASSIUM CHLORIDE 20 MEQ TABLET.ER. PO SCH (20:26)
[2020-11-02] MEDS: MELATONIN 3 MG TABLET PO SCH (20:27)
[2020-11-02] MEDS: PRAZOSIN 1 MG CAPSULE. PO SCH (20:27)
[2020-11-02] MEDS: QUEtiapine 50 MG TABLET. PO SCH (20:28)
[2020-11-02] MEDS: LORazepam 1 MG TABLET PO SCH (20:28)
[2020-11-02] MEDS: traZODone 50 MG TABLET. PO SCH (20:28)
[2020-11-03 06:14] VITALS: BP 112/67
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
[2020-11-03] MEDS: POTASSIUM CHLORIDE 20 MEQ TABLET.ER. PO SCH ×2 (08:47→19:41)
[2020-11-03] MEDS: QUEtiapine 25 MG TABLET. PO SCH ×3 (08:47→17:42)
[2020-11-03] MEDS: carBAMazepine 200 MG TABLET PO SCH ×2 (08:49→17:42)
[2020-11-03] MEDS: FUROSEMIDE 40 MG TABLET PO SCH (08:49)
[2020-11-03] MEDS: ASPIRIN CHEWABLE 81 MG TABLET. PO SCH (08:49)
[2020-11-03] MEDS: PANTOPRAZOLE 40 MG TABLET. PO SCH (08:50)
[2020-11-03] MEDS: LORazepam 1 MG TABLET PO SCH ×2 (08:50→19:41)
[2020-11-03] MEDS: MULTIVITAMIN with MINERAL TABLET. PO SCH (08:50)
[2020-11-03] MEDS ORDERED: FLU VACC QUAD 21-22 (6MOS+) PF 0.5 ML SYRINGE. VAX IM ONE (09:00)
[2020-11-03 10:12] LABS: BASO # 0.1 x10^3/uL (0.0-0.2); BASO % 1 % (0-3); EOS # 0.5 x10^3/uL (0.0-0.7); EOS % 12 % (0-3); HEMATOCRIT 37.4 % (39.0-53.0); LYMPH # 0.8 x10^3/uL (1.0-4.8); LYMPH % 18 % (24-48); MEAN CORPUSCULAR HEMOGLOBIN 28 pg (25-35); MEAN CORPUSCULAR HGB CONC 32 g/dL (31-37); MEAN CORPUSCULAR VOLUME 87 fL (79-100); MONO # 0.5 x10^3/uL (0.0-1.1); MONO % 11 % (0-9); NEUT # 2.5 x10^3uL (1.8-7.7); NEUT % 58 % (31-73); PLATELET COUNT 148 x10^3/uL (140-400); RED BLOOD COUNT 4.28 x10^6/uL (4.30-5.70); RED CELL DISTRIBUTION WIDTH 17.2 % (11.5-14.5); WHITE BLOOD COUNT 4.3 x10^3/uL (4.0-11.0)
[2020-11-03 10:25] LABS: ALBUMIN 3.3 g/dL (3.4-5.0); CALCIUM 8.7 mg/dL (8.5-10.1); CREATININE 0.9 mg/dL (0.7-1.3); GFR 81.8; POTASSIUM 3.6 mmol/L (3.5-5.1); TOTAL BILIRUBIN 0.4 mg/dL (0.2-1.0); TOTAL PROTEIN 6.6 g/dL (6.4-8.2)
[2020-11-03 14:09] LABS: CARBAM 4.4 mcg/mL (4.0-12.0)
[2020-11-03 16:05] VITALS: BP 112/70
[2020-11-03] MEDS: SERTRALINE 100 MG TABLET. PO SCH (17:42)
[2020-11-03] MEDS: traZODone 50 MG TABLET. PO SCH (19:41)
[2020-11-03] MEDS: MELATONIN 3 MG TABLET PO SCH (19:41)
[2020-11-03] MEDS: QUEtiapine 50 MG TABLET. PO SCH (19:42)
[2020-11-03] MEDS: PRAZOSIN 1 MG CAPSULE. PO SCH (19:43)
[2020-11-03] MEDS: oxyCODONE/APAP 7.5/325 1 TAB TABLET PO PRN (22:57)
[2020-11-04 06:34] VITALS: BP 111/67
[2020-11-04] MEDS: LORazepam 1 MG TABLET PO SCH ×2 (08:26→19:42)
[2020-11-04] MEDS: carBAMazepine 200 MG TABLET PO SCH ×2 (08:26→17:30)
[2020-11-04] MEDS: FUROSEMIDE 40 MG TABLET PO SCH (08:26)
[2020-11-04] MEDS: MULTIVITAMIN with MINERAL TABLET. PO SCH (08:26)
[2020-11-04] MEDS: QUEtiapine 25 MG TABLET. PO SCH ×3 (08:26→17:30)
[2020-11-04] MEDS: ASPIRIN CHEWABLE 81 MG TABLET. PO SCH (08:27)
[2020-11-04] MEDS: PANTOPRAZOLE 40 MG TABLET. PO SCH (08:27)
[2020-11-04] MEDS: POTASSIUM CHLORIDE 20 MEQ TABLET.ER. PO SCH ×2 (08:27→19:42)
--- NOTE | 2020-11-04 12:02 | PDOC ---
Exam Note: Raman Note: Late entry for 11/02/2020. Please also refer to the separate dictated note~for this date of service dictated separately.~Patient seen individually. Discussed the patient with Nursing staff reviewed the chart.~Reviewed interim history and current functioning. Reviewed vital signs,~Labs/ Radiology~and current medic ations noted below. Continue current treatment with the changes noted in the dictated addendum note Assessment: Vital Signs/I&O: Vital Signs Date Time Temp Pulse Resp B/P (MAP) Pulse Ox O2 Delivery O2 Flow Rate FiO2 11/04/20 06:34 97.5 64 16 111/67 (82) 99 I & O 11/03/20 11/03/20 11/04/20 15:00 23:00 07:00 Intake Total 600 ml 360 ml Balance 600 ml 360 ml Current Medications: Meds: Current Medications Medications (Trade) Dose Ordered Sig/Abundio Route PRN Reason Start Time Stop Time Status Last Admin Dose Admin Acetaminophen (Tylenol) 650 mg PRN Q6HRS PRN PO MILD PAIN / TEMP > 100.3'F 11/02/20 11:30 Multi-Ingredient Ointment (Analgesic [place]) 1 will PRN QID PRN TP MUSCLE PAIN 11/02/20 11:30 Al Hydroxide/Mg Hydroxide (Mylanta Plus Xs) 15 ml PRN AFTMEALHC PRN PO DYSPEPSIA 11/02/20 11:30 Magnesium Hydroxide (Milk Of Magnesia) 2,400 mg PRN QHS PRN PO CONSTIPATION 11/02/20 11:30 Aspirin (Aspirin Chewable) 81 mg DAILY PO 11/03/20 09:00 11/04/20 08:27 Carbamazepine (TEGretol) 200 mg DAILY PO 11/03/20 09:00 11/04/20 08:26 Carbamazepine (TEGretol) 200 mg DAILYWSUP PO 11/02/20 17:00 11/03/20 17:42 Furosemide (Lasix) 40 mg DAILY PO 11/03/20 09:00 11/04/20 08:26 Lorazepam (Ativan) 1 mg BID PO 11/02/20 21:00 11/04/20 08:26 Melatonin (Melatonin) 3 mg HS PO 11/02/20 21:00 11/03/20 19:41 Oxycodone/ Acetaminophen (Percocet 7.5/ 325) 1 tab PRN DAILY PRN PO MOD-SEV PAIN 11/02/20 12:45 11/03/20 22:57 Potassium Chloride (Klor-Con) 20 meq BID PO 11/02/20 21:00 11/04/20 08:27 Prazosin HCl (Minipress) 2 mg QHS PO 11/02/20 21:00 11/03/20 19:43 Quetiapine Fumarate (SEROquel) 62.5 mg 0900,1300,1700 PO 11/02/20 13:00 11/04/20 08:26 Quetiapine Fumarate (SEROquel) 50 mg PRN DAILY PRN PO 3RD CHOICE FOR ANXIETY 11/02/20 12:45 Quetiapine Fumarate (SEROquel) 75 mg QHS PO 11/02/20 21:00 11/03/20 19:42 Sertraline HCl (Zoloft) 100 mg DAILY@1700 PO 11/02/20 17:00 11/03/20 17:42 Trazodone HCl (Desyrel) 50 mg QHS PO 11/02/20 21:00 11/03/20 19:41 Multivitamins/ Calcium (Thera-M Plus) 1 tab DAILY PO 11/03/20 09:00 11/04/20 08:26 Pantoprazole Sodium (Protonix) 40 mg DAILYAC PO 11/03/20 07:30 11/04/20 08:27 Influenza Virus Vaccine Quadrival (Flulaval Quad [id number] Syringe) 0.5 ml ONCE ONCE VAX IM 11/03/20 09:00 11/03/20 09:01 DC 11/03/20 08:52 I have reviewed the current psychotropics carefully including drug interactions. Risk benefit ratio favors no change other than as noted in my dictated progress note. Diagnosis: Problems: (1) Impulse control disorder, unspecified (2) Anxiety disorder, unspecified (3) Dementia, vascular, with delusions (4) Dementia in Alzheimer's disease with depression (5) Dementia in Alzheimer's disease with delusions (6) Dementia of the Alzheimer's type with early onset with behavioral disturbance (7) Major neurocognitive disorder DUANE NINO MD Nov 04, 2020 12:02
[2020-11-04 15:51] VITALS: BP 120/60
[2020-11-04] MEDS: SERTRALINE 100 MG TABLET. PO SCH (17:30)
[2020-11-04] MEDS: QUEtiapine 50 MG TABLET. PO SCH (19:41)
[2020-11-04] MEDS: MELATONIN 3 MG TABLET PO SCH (19:42)
[2020-11-04] MEDS: PRAZOSIN 1 MG CAPSULE. PO SCH (19:43)
[2020-11-04] MEDS: traZODone 50 MG TABLET. PO SCH (19:43)
--- NOTE | 2020-11-04 20:05 | PN ---
DATE: 11/03/2020 SUBJECTIVE: The patient was seen today, met with the staff. Chart was reviewed and also covering for Dr. Davis This is a late entry for the service date on 11/03/2020. Staff reports no major behavioral problems. She is pleasant, calm and cooperative. OBSERVATION: VITAL SIGNS: Temperature 97.6, blood pressure 112/67, pulse 77, respirations 18, O2 sat 99%. GENERAL: Slept about 5 hours last night. The patient's appetite is fair. CURRENT MEDICATIONS: The patient's current medications includes Tegretol 200 mg daily, trazodone 50 mg at night, Seroquel 75 mg at night, prazosin 2 mg at night, melatonin 3 mg at night, lorazepam 1 mg twice a day, Zoloft 100 mg daily, Tegretol 200 mg at night, Seroquel 62.5 mg 3 times a day and 50 mg at night p.r.n. Staff reports no major side effects. No falls. LABORATORY DATA: The patient's lab reviewed. ASSESSMENT: Major neurocognitive disorder, most likely Alzheimer's, vascular with delusions, depression; anxiety disorder, unspecified. PLAN: To continue with the current treatment plan. LENGTH OF STAY: Seven to [address]: Clive TID: [id number]
--- NOTE | 2020-11-05 | PN ---
DATE: 11/04/2020 SUBJECTIVE: The patient was seen today. Met with the staff. Chart was reviewed. Also covering for Dr. Davis. Staff reports no major behavior problems. Is pleasant, cooperative and also intrusive, tend to follow the staff. The patient has limited communication, lacking insight to his problems. OBSERVATION: VITAL SIGNS: Temperature 97.5, blood pressure 111/67, pulse 64, respirations 16, O2 sat 99%. GENERAL: Slept about 3 hours last night. The patient has a tendency to pace constantly, but no side effects to medications. Patient denies of any physical complaints. No falls. CURRENT MEDICATIONS: His current medications include Tegretol 200 mg daily, trazodone 50 mg at night, Seroquel 75 mg at night, prazosin 2 mg at night, melatonin 3 mg at night, lorazepam 1 mg twice a day, Zoloft 100 mg daily, Tegretol 200 mg at night, Seroquel 62.5 mg 3 times a day and 50 mg at night. 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 PLAN: Continue with treatment. LENGTH OF STAY: Seven days. ISAAC DR: Clive TID: [id number]
[2020-11-05 06:13] VITALS: BP 101/63
[2020-11-05] MEDS: QUEtiapine 25 MG TABLET. PO SCH ×3 (08:49→17:17)
[2020-11-05] MEDS: POTASSIUM CHLORIDE 20 MEQ TABLET.ER. PO SCH ×2 (08:50→19:49)
[2020-11-05] MEDS: LORazepam 1 MG TABLET PO SCH ×2 (08:50→19:50)
[2020-11-05] MEDS: PANTOPRAZOLE 40 MG TABLET. PO SCH (08:51)
[2020-11-05] MEDS: carBAMazepine 200 MG TABLET PO SCH ×2 (08:51→17:17)
[2020-11-05] MEDS: ASPIRIN CHEWABLE 81 MG TABLET. PO SCH (08:51)
[2020-11-05] MEDS: MULTIVITAMIN with MINERAL TABLET. PO SCH (08:51)
[2020-11-05] MEDS: FUROSEMIDE 40 MG TABLET PO SCH (08:51)
[2020-11-05 15:59] VITALS: BP 110/66
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
[2020-11-05] MEDS: SERTRALINE 100 MG TABLET. PO SCH (17:16)
[2020-11-05] MEDS: MELATONIN 3 MG TABLET PO SCH (19:49)
[2020-11-05] MEDS: PRAZOSIN 1 MG CAPSULE. PO SCH (19:50)
[2020-11-05] MEDS: traZODone 50 MG TABLET. PO SCH (19:50)
[2020-11-05] MEDS: QUEtiapine 50 MG TABLET. PO SCH (19:50)
[2020-11-06 05:39] VITALS: BP 113/63
[2020-11-06] MEDS: PANTOPRAZOLE 40 MG TABLET. PO SCH (08:24)
[2020-11-06] MEDS: MULTIVITAMIN with MINERAL TABLET. PO SCH (08:24)
[2020-11-06] MEDS: QUEtiapine 25 MG TABLET. PO SCH ×3 (08:24→17:09)
[2020-11-06] MEDS: FUROSEMIDE 40 MG TABLET PO SCH (08:25)
[2020-11-06] MEDS: ASPIRIN CHEWABLE 81 MG TABLET. PO SCH (08:25)
[2020-11-06] MEDS: POTASSIUM CHLORIDE 20 MEQ TABLET.ER. PO SCH ×2 (08:25→19:54)
[2020-11-06] MEDS: LORazepam 1 MG TABLET PO SCH ×2 (08:25→19:52)
[2020-11-06] MEDS: carBAMazepine 200 MG TABLET PO SCH ×2 (08:25→17:09)
[2020-11-06 16:01] VITALS: BP 133/88
[2020-11-06] MEDS: ACETAMINOPHEN 325 MG TABLET PO PRN (16:38)
[2020-11-06] MEDS: SERTRALINE 100 MG TABLET. PO SCH (17:09)
[2020-11-06] MEDS: QUEtiapine 50 MG TABLET. PO SCH (19:52)
[2020-11-06] MEDS: PRAZOSIN 1 MG CAPSULE. PO SCH (19:53)
[2020-11-06] MEDS: MELATONIN 3 MG TABLET PO SCH (19:54)
[2020-11-06] MEDS: traZODone 50 MG TABLET. PO SCH (19:54)
--- NOTE | 2020-11-07 01:15 | PN ---
DATE: 11/05/2020 SUBJECTIVE: The patient was seen on 11/05/2020, met with the staff. Chart was reviewed and also participated in the treatment review. This is a late entry for the service date 11/05/2020. Staff reports no major behavior problems except being intrusive, having some mood swings, irritability and has limited communication, also lacking insight to his problems and also has significant cognitive deficits. OBSERVATION: VITAL SIGNS: Temperature 98.0, blood pressure 101/63, pulse 82, respirations 18 and O2 sat 97%. GENERAL: Slept about 7 hours last night. CURRENT MEDICATIONS: Include Tegretol 200 mg daily, trazodone 50 mg at night, Seroquel 75 mg at night, prazosin 2 mg at night, melatonin 3 mg at night, lorazepam 1 mg twice a day, Zoloft 100 mg daily and Tegretol 200 mg at night. The patient is also on Seroquel 62.5 mg 3 times a day and 50 mg at night. 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 PLAN: To continue with the treatment. LENGTH OF STAY: [address]: Clive TID: [id number]
--- NOTE | 2020-11-07 01:28 | PN ---
DATE: 11/06/2020 SUBJECTIVE: The patient was seen today, met with the staff. Chart was reviewed and also covering for Dr. Davis. Staff reports no major behavior problems today except complaining of headaches. The patient apparently has some bruising on his face below eyes, seems to be scratching himself. Denies of any falls. The patient fluctuates with his mood and not presented with any major behavioral problems. He is also confused. OBSERVATION: VITAL SIGNS: Temperature 97.7, blood pressure 113/63, pulse 92, respirations 20, O2 sat 98%. GENERAL: Slept about 7 hours last night. The patient is not having any side effects to medications. CURRENT MEDICATIONS: Tegretol 200 mg daily, trazodone 50 mg at night, Seroquel 75 mg at night, prazosin 2 mg at night, melatonin 3 mg at night, lorazepam 1 mg twice a day, Zoloft 100 mg daily, and Tegretol 200 mg at night. He is also on Seroquel 62.5 mg 3 times a day and 50 mg at night. ASSESSMENT: Major neurocognitive disorder, most likely Alzheimer's with behavior problems. PLAN: To continue with the treatment. LENGTH OF STAY: Seven days. ANTIONE DR: Clive TID: [id number]
[2020-11-07 06:06] VITALS: BP 115/65
[2020-11-07] MEDS: LORazepam 1 MG TABLET PO SCH ×2 (08:12→19:46)
[2020-11-07] MEDS: MULTIVITAMIN with MINERAL TABLET. PO SCH (08:12)
[2020-11-07] MEDS: QUEtiapine 25 MG TABLET. PO SCH ×3 (08:12→17:30)
[2020-11-07] MEDS: PANTOPRAZOLE 40 MG TABLET. PO SCH (08:12)
[2020-11-07] MEDS: carBAMazepine 200 MG TABLET PO SCH ×2 (08:12→17:30)
[2020-11-07] MEDS: POTASSIUM CHLORIDE 20 MEQ TABLET.ER. PO SCH ×2 (08:13→19:46)
[2020-11-07] MEDS: FUROSEMIDE 40 MG TABLET PO SCH (08:13)
[2020-11-07] MEDS: ASPIRIN CHEWABLE 81 MG TABLET. PO SCH (08:13)
[2020-11-07 15:42] VITALS: BP 111/69
[2020-11-07] MEDS: SERTRALINE 100 MG TABLET. PO SCH (17:30)
[2020-11-07] MEDS: MELATONIN 3 MG TABLET PO SCH (19:45)
[2020-11-07] MEDS: traZODone 50 MG TABLET. PO SCH (19:45)
[2020-11-07] MEDS: oxyCODONE/APAP 7.5/325 1 TAB TABLET PO PRN (19:46)
[2020-11-07] MEDS: QUEtiapine 50 MG TABLET. PO SCH (19:46)
[2020-11-07] MEDS: PRAZOSIN 1 MG CAPSULE. PO SCH (19:47)
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
[2020-11-08] MEDS: ACETAMINOPHEN 325 MG TABLET PO PRN (02:18)
[2020-11-08 06:43] VITALS: BP 100/67
[2020-11-08] MEDS: QUEtiapine 25 MG TABLET. PO SCH ×3 (08:28→17:52)
[2020-11-08] MEDS: MULTIVITAMIN with MINERAL TABLET. PO SCH (08:28)
[2020-11-08] MEDS: LORazepam 1 MG TABLET PO SCH ×2 (08:28→20:47)
[2020-11-08] MEDS: PANTOPRAZOLE 40 MG TABLET. PO SCH (08:28)
[2020-11-08] MEDS: ASPIRIN CHEWABLE 81 MG TABLET. PO SCH (08:28)
[2020-11-08] MEDS: carBAMazepine 200 MG TABLET PO SCH ×2 (08:29→17:52)
[2020-11-08] MEDS: FUROSEMIDE 40 MG TABLET PO SCH (08:29)
[2020-11-08] MEDS: POTASSIUM CHLORIDE 20 MEQ TABLET.ER. PO SCH ×2 (08:29→20:47)
[2020-11-08 16:01] VITALS: BP 119/86
[2020-11-08] MEDS: SERTRALINE 100 MG TABLET. PO SCH (17:52)
[2020-11-08 20:00] VITALS: BP 103/66
[2020-11-08] MEDS: PRAZOSIN 1 MG CAPSULE. PO SCH (20:46)
[2020-11-08] MEDS: traZODone 50 MG TABLET. PO SCH (20:47)
[2020-11-08] MEDS: QUEtiapine 50 MG TABLET. PO SCH (20:47)
[2020-11-08] MEDS: MELATONIN 3 MG TABLET PO SCH (20:47)
--- NOTE | 2020-11-09 02:22 | PN ---
DATE: 11/08/2020 SUBJECTIVE: The patient was seen today, met with the staff, chart reviewed and also covering for Dr. Davis. Staff reports no major behavior problems except patient is withdrawn, angry, history of explosive and violent behaviors. He also complains of feeling tired. OBSERVATION: VITAL SIGNS: Temperature 96.9, blood pressure 119/86, pulse 72, respirations 18, O2 sat 99%. The patient apparently not sleeping well, but appetite improved. CURRENT MEDICATIONS: Include Tegretol 200 mg twice a day, trazodone 50 mg at night, Seroquel 75 mg at night, prazosin 2 mg at night, melatonin 3 mg at night, lorazepam 1 mg twice a day, Zoloft 100 mg daily and Seroquel 62.5 mg 3 times a day and 50 mg daily p.r.n. The patient is not having any major side effects. LABORATORY DATA: The patient's lab reviewed. ASSESSMENT: Major neurocognitive disorder, most likely Alzheimer's with behavior problems. PLAN: To continue with treatment. LENGTH OF STAY: 7 days. ROSA/EVE/DIOGENES DR: Clive TID: [id number]
[2020-11-09] MEDS: carBAMazepine 200 MG TABLET PO SCH ×2 (08:24→18:09)
[2020-11-09] MEDS: POTASSIUM CHLORIDE 20 MEQ TABLET.ER. PO SCH ×2 (08:25→20:24)
[2020-11-09] MEDS: LORazepam 1 MG TABLET PO SCH ×2 (08:25→20:26)
[2020-11-09] MEDS: PANTOPRAZOLE 40 MG TABLET. PO SCH (08:25)
[2020-11-09] MEDS: ASPIRIN CHEWABLE 81 MG TABLET. PO SCH (08:25)
[2020-11-09] MEDS: MULTIVITAMIN with MINERAL TABLET. PO SCH (08:25)
[2020-11-09] MEDS: FUROSEMIDE 40 MG TABLET PO SCH (08:25)
[2020-11-09] MEDS: QUEtiapine 25 MG TABLET. PO SCH ×3 (08:26→18:10)
[2020-11-09 16:00] VITALS: BP 113/84
[2020-11-09] MEDS: SERTRALINE 50 MG TABLET. PO SCH ×2 (18:08→18:15)
[2020-11-09] MEDS: QUEtiapine 50 MG TABLET. PO SCH (20:23)
[2020-11-09] MEDS: traZODone 50 MG TABLET. PO SCH (20:23)
[2020-11-09] MEDS: MELATONIN 3 MG TABLET PO SCH (20:23)
[2020-11-09] MEDS: PRAZOSIN 1 MG CAPSULE. PO SCH (20:24)
--- NOTE | 2020-11-10 02:01 | PN ---
DATE: 11/09/2020 SUBJECTIVE: The patient was seen today, met with the staff, chart reviewed. The patient continues to have problems, social isolation, angry, has a staring spell and also somewhat threatening to another male resident. The patient has difficulty communicating his feelings. The patient also verbally abusive towards the staff. OBSERVATION: VITAL SIGNS: Temperature 97.5, blood pressure 103/66, pulse 67, respirations 16, O2 sat 99%. GENERAL: Slept about 7 hours last night. His appetite normal. Patient has had no falls. LABORATORY DATA: The patient's lab reviewed. CURRENT MEDICATIONS: The patient's current medications include Tegretol 200 mg twice a day, trazodone 50 mg at night, Seroquel 75 mg at night, prazosin 2 mg at night, melatonin 3 mg at night, lorazepam 1 mg twice a day, Zoloft 100 mg daily and Seroquel 62.5 mg 3 times a day and 50 mg daily p.r.n. The patient denies of any side effects. ASSESSMENT: Major neurocognitive disorder, most likely Alzheimer's with behavior problems. PLAN: Continue with the treatment. LENGTH OF STAY: Seven days. ISAAC DR: Clive TID: [id number]
[2020-11-10 06:22] VITALS: BP 107/69
[2020-11-10] MEDS: MULTIVITAMIN with MINERAL TABLET. PO SCH (08:15)
[2020-11-10] MEDS: POTASSIUM CHLORIDE 20 MEQ TABLET.ER. PO SCH ×2 (08:16→19:56)
[2020-11-10] MEDS: FUROSEMIDE 40 MG TABLET PO SCH (08:16)
[2020-11-10] MEDS: carBAMazepine 200 MG TABLET PO SCH ×2 (08:16→17:47)
[2020-11-10] MEDS: LORazepam 1 MG TABLET PO SCH ×2 (08:16→19:57)
[2020-11-10] MEDS: ASPIRIN CHEWABLE 81 MG TABLET. PO SCH (08:16)
[2020-11-10] MEDS: QUEtiapine 25 MG TABLET. PO SCH ×3 (08:17→17:47)
[2020-11-10] MEDS: PANTOPRAZOLE 40 MG TABLET. PO SCH (08:17)
[2020-11-10 15:36] VITALS: BP 114/72
[2020-11-10] MEDS: SERTRALINE 50 MG TABLET. PO SCH (17:47)
[2020-11-10] MEDS: MELATONIN 3 MG TABLET PO SCH (19:55)
[2020-11-10] MEDS: QUEtiapine 50 MG TABLET. PO SCH (19:55)
[2020-11-10] MEDS: traZODone 50 MG TABLET. PO SCH (19:55)
[2020-11-10] MEDS: PRAZOSIN 1 MG CAPSULE. PO SCH (19:56)
[2020-11-10] MEDS: oxyCODONE/APAP 7.5/325 1 TAB TABLET PO PRN (23:00)
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
[2020-11-11 06:01] VITALS: BP 133/83
[2020-11-11] MEDS: QUEtiapine 25 MG TABLET. PO SCH ×3 (08:43→17:07)
[2020-11-11] MEDS: MULTIVITAMIN with MINERAL TABLET. PO SCH (08:45)
[2020-11-11] MEDS: POTASSIUM CHLORIDE 20 MEQ TABLET.ER. PO SCH ×2 (08:45→20:25)
[2020-11-11] MEDS: LORazepam 1 MG TABLET PO SCH ×2 (08:46→20:28)
[2020-11-11] MEDS: ASPIRIN CHEWABLE 81 MG TABLET. PO SCH (08:46)
[2020-11-11] MEDS: FUROSEMIDE 40 MG TABLET PO SCH (08:46)
[2020-11-11] MEDS: PANTOPRAZOLE 40 MG TABLET. PO SCH (08:46)
[2020-11-11] MEDS: carBAMazepine 200 MG TABLET PO SCH ×2 (08:46→17:09)
[2020-11-11 09:05] LABS: BASO # 0.1 x10^3/uL (0.0-0.2); BASO % 2 % (0-3); EOS # 0.6 x10^3/uL (0.0-0.7); EOS % 17 % (0-3); HEMATOCRIT 38.3 % (39.0-53.0); HEMOGLOBIN 12.4 g/dL (13.0-17.5); LYMPH % 28 % (24-48); MEAN CORPUSCULAR HEMOGLOBIN 29 pg (25-35); MEAN CORPUSCULAR HGB CONC 32 g/dL (31-37); MEAN CORPUSCULAR VOLUME 88 fL (79-100); MONO # 0.4 x10^3/uL (0.0-1.1); MONO % 12 % (0-9); NEUT # 1.5 x10^3uL (1.8-7.7); NEUT % 41 % (31-73); PLATELET COUNT 150 x10^3/uL (140-400); RED BLOOD COUNT 4.34 x10^6/uL (4.30-5.70); RED CELL DISTRIBUTION WIDTH 16.8 % (11.5-14.5); WHITE BLOOD COUNT 3.6 x10^3/uL (4.0-11.0)
[2020-11-11 09:21] LABS: CALCIUM 9.4 mg/dL (8.5-10.1); GFR 72.5; POTASSIUM 3.7 mmol/L (3.5-5.1); TOTAL BILIRUBIN 0.3 mg/dL (0.2-1.0); TOTAL PROTEIN 8.1 g/dL (6.4-8.2)
[2020-11-11 15:33] VITALS: BP 110/69
[2020-11-11] MEDS: SERTRALINE 50 MG TABLET. PO SCH (17:08)
[2020-11-11] MEDS: PRAZOSIN 1 MG CAPSULE. PO SCH (20:24)
[2020-11-11] MEDS: MELATONIN 3 MG TABLET PO SCH (20:25)
[2020-11-11] MEDS: traZODone 50 MG TABLET. PO SCH (20:25)
[2020-11-11] MEDS: QUEtiapine 50 MG TABLET. PO SCH (20:28)
--- NOTE | 2020-11-11 23:33 | PN ---
DATE: 11/11/2020 SUBJECTIVE: The patient was seen today, met with the staff, chart reviewed. Staff reports frequent wandering, restless, angry, but withdrawn and isolative. The patient also exhibiting episodes of agitation and also moderate psychomotor retardation. OBSERVATION: VITAL SIGNS: Temperature 98.1, blood pressure 133/83, pulse 70, respirations 18, O2 sat 99%. GENERAL: Slept about 5 hours last night. The patient's appetite is fair. LABORATORY DATA: The patient's lab reviewed. CURRENT MEDICATIONS: The patient's current medications include Zoloft 75 mg daily, Tegretol 200 mg twice a day, trazodone 50 mg at night, Seroquel 75 mg at night and also 62.5 mg 3 times a day. He is also on Seroquel 50 mg daily p.r.n. The patient is also on prazosin 2 mg at night, melatonin 3 mg at night, lorazepam 1 mg twice a day. The patient is not having any side effects to medications. ASSESSMENT: Major neurocognitive disorder, most likely Alzheimer's with behavior problems. PLAN: To continue with treatment. LENGTH OF STAY: Seven days. ROSA/SUELLEN/DIOGENES DR: ROSA/essence TID: [id number]
[2020-11-12 05:50] VITALS: BP 114/73
[2020-11-12] MEDS: POTASSIUM CHLORIDE 20 MEQ TABLET.ER. PO SCH ×2 (08:38→19:55)
[2020-11-12] MEDS: QUEtiapine 25 MG TABLET. PO SCH ×3 (08:38→17:46)
[2020-11-12] MEDS: carBAMazepine 200 MG TABLET PO SCH ×2 (08:38→17:45)
[2020-11-12] MEDS: LORazepam 1 MG TABLET PO SCH ×2 (08:38→19:56)
[2020-11-12] MEDS: ASPIRIN CHEWABLE 81 MG TABLET. PO SCH (08:38)
[2020-11-12] MEDS: MULTIVITAMIN with MINERAL TABLET. PO SCH (08:38)
[2020-11-12] MEDS: PANTOPRAZOLE 40 MG TABLET. PO SCH (08:38)
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
[2020-11-12 16:11] VITALS: BP 136/64
[2020-11-12] MEDS: SERTRALINE 50 MG TABLET. PO SCH (17:46)
[2020-11-12] MEDS: MELATONIN 3 MG TABLET PO SCH (19:54)
[2020-11-12] MEDS: PRAZOSIN 1 MG CAPSULE. PO SCH (19:55)
[2020-11-12] MEDS: traZODone 50 MG TABLET. PO SCH (19:55)
[2020-11-12] MEDS: QUEtiapine 50 MG TABLET. PO SCH (19:57)
--- NOTE | 2020-11-13 01:43 | PN ---
DATE: 11/12/2020 SUBJECTIVE: The patient was seen today, met with the staff, chart reviewed. Staff reports no major behavior problems and become more passive, at times also withdrawn with marked psychomotor retardation. The patient also resistive to care at times and he is legally blind. The patient lost about 7 pounds recently. OBSERVATION: VITAL SIGNS: Temperature 97.6, blood pressure 119/73, pulse 83, respirations 16, O2 sat 100%. GENERAL: Slept about 6 hours last night. The patient will be seen by Dr. Pappas for followup because of the weight loss. CURRENT MEDICATIONS: Include Zoloft 75 mg daily, Tegretol 200 mg twice a day, trazodone 50 mg at night, Seroquel 62.5 mg 3 times a day and 50 mg at night, prazosin 2 mg at night, melatonin 3 mg at night, lorazepam 1 mg twice a day. The patient is not having any side effects to medications. LABORATORY DATA: The patient's lab reviewed. ASSESSMENT: Major neurocognitive disorder, most likely Alzheimer's with behavior problems. PLAN: To continue with the treatment. LENGTH OF STAY: The patient is planned for discharge in [address]: Clive TID: [id number] [facility]
[2020-11-13 06:14] VITALS: BP 133/60
[2020-11-13] MEDS: PANTOPRAZOLE 40 MG TABLET. PO SCH (07:30)
[2020-11-13] MEDS: ASPIRIN CHEWABLE 81 MG TABLET. PO SCH (09:29)
[2020-11-13] MEDS: LORazepam 1 MG TABLET PO SCH ×2 (09:30→19:49)
[2020-11-13] MEDS: POTASSIUM CHLORIDE 20 MEQ TABLET.ER. PO SCH ×2 (09:30→19:50)
[2020-11-13] MEDS: carBAMazepine 200 MG TABLET PO SCH ×2 (09:32→17:23)
[2020-11-13] MEDS: QUEtiapine 25 MG TABLET. PO SCH ×3 (09:32→17:23)
[2020-11-13] MEDS: MULTIVITAMIN with MINERAL TABLET. PO SCH (09:32)
[2020-11-13 16:04] VITALS: BP 110/64
[2020-11-13] MEDS: SERTRALINE 50 MG TABLET. PO SCH (17:23)
[2020-11-13] MEDS: traZODone 50 MG TABLET. PO SCH (19:49)
[2020-11-13] MEDS: PRAZOSIN 1 MG CAPSULE. PO SCH (19:49)
[2020-11-13] MEDS: MELATONIN 3 MG TABLET PO SCH (19:49)
[2020-11-13] MEDS: QUEtiapine 50 MG TABLET. PO SCH (19:50)
[2020-11-13] MEDS: MAGNESIUM HYDROXIDE 2,400 MG/30 ML ORAL.SUSP. PO PRN (19:51)
[2020-11-14 06:33] VITALS: BP 129/79
--- NOTE | 2020-11-14 07:28 | PN ---
DATE: 11/13/2020 SUBJECTIVE: The patient was seen today, met with the staff, chart reviewed. The patient was seen by the dietitian because of loss of 7 pounds since admission. The patient continues to wander, having difficulty with thinking, disorganized. Staff reports no negative behaviors, is no longer exhibiting any violence towards others. OBSERVATION: VITAL SIGNS: Temperature 97.4, blood pressure 133/60, pulse 64, respirations 18, O2 sat 98%. GENERAL: Slept about 7 hours last night. The patient's appetite is decreased. CURRENT MEDICATIONS: Include Zoloft 75 mg daily, Tegretol 200 mg twice a day, trazodone 50 mg at night, Seroquel 62.5 mg 3 times a day and 50 mg at night, prazosin 2 mg at night, melatonin 3 mg at night and lorazepam 1 mg twice a day. The patient denies any side effects from medications. LABORATORY DATA: Reviewed. ASSESSMENT: Major neurocognitive disorder, most likely Alzheimer's with behavior problems. PLAN: To continue with the treatment. LENGTH OF STAY: 3 to [address]: Clive TID: [id number]
[2020-11-14] MEDS: LORazepam 1 MG TABLET PO SCH ×2 (08:55→20:18)
[2020-11-14] MEDS: ASPIRIN CHEWABLE 81 MG TABLET. PO SCH (08:55)
[2020-11-14] MEDS: carBAMazepine 200 MG TABLET PO SCH ×2 (08:55→17:12)
[2020-11-14] MEDS: PANTOPRAZOLE 40 MG TABLET. PO SCH (08:55)
[2020-11-14] MEDS: QUEtiapine 25 MG TABLET. PO SCH ×3 (08:56→17:00)
[2020-11-14] MEDS: POTASSIUM CHLORIDE 20 MEQ TABLET.ER. PO SCH ×2 (08:56→20:19)
[2020-11-14] MEDS: MULTIVITAMIN with MINERAL TABLET. PO SCH (09:00)
[2020-11-14 15:36] VITALS: BP 117/71
[2020-11-14] MEDS: SERTRALINE 50 MG TABLET. PO SCH (17:11)
[2020-11-14] MEDS: QUEtiapine 50 MG TABLET. PO SCH (20:18)
[2020-11-14] MEDS: MELATONIN 3 MG TABLET PO SCH (20:18)
[2020-11-14] MEDS: traZODone 50 MG TABLET. PO SCH (20:18)
[2020-11-14] MEDS: PRAZOSIN 1 MG CAPSULE. PO SCH (20:20)
--- NOTE | 2020-11-15 03:17 | PN ---
DATE: 11/14/2020 SUBJECTIVE: The patient was seen today, met with the staff, chart reviewed. The patient's behavior remains the same. He has not exhibited any aggressive behaviors. OBSERVATION: VITAL SIGNS: Temperature 97.0, blood pressure 129/79, pulse 83, respirations 18, O2 sat 100%. GENERAL: Slept about 7 hours last night. The patient's appetite improved. CURRENT MEDICATIONS: Include Zoloft 75 mg daily, Tegretol 200 mg twice a day, trazodone 50 mg at night, Seroquel 62.5 mg 3 times daily and 50 mg at night. The patient is also on prazosin 2 mg at night, melatonin 1 mg at night and lorazepam 1 mg twice a day. The patient denies of any side effects. LABORATORY DATA: The patient's lab reviewed. ASSESSMENT: Major neurocognitive disorder, most likely Alzheimer's with behavior problems. PLAN: To continue with the treatment. LENGTH OF STAY: Three days. VISHAL/DIOGENES DR: Clive TID: [id number]
[2020-11-15 06:19] VITALS: BP 128/70
[2020-11-15] MEDS: ASPIRIN CHEWABLE 81 MG TABLET. PO SCH (08:34)
[2020-11-15] MEDS: LORazepam 1 MG TABLET PO SCH ×2 (08:34→20:22)
[2020-11-15] MEDS: PANTOPRAZOLE 40 MG TABLET. PO SCH (08:35)
[2020-11-15] MEDS: MULTIVITAMIN with MINERAL TABLET. PO SCH (08:35)
[2020-11-15] MEDS: QUEtiapine 25 MG TABLET. PO SCH ×3 (08:35→17:00)
[2020-11-15] MEDS: POTASSIUM CHLORIDE 20 MEQ TABLET.ER. PO SCH ×2 (09:00→20:22)
[2020-11-15] MEDS: carBAMazepine 200 MG TABLET PO SCH ×2 (09:00→17:09)
[2020-11-15 15:51] VITALS: BP 131/65
[2020-11-15 15:52] VITALS: BP_SYST 131
[2020-11-15] MEDS: SERTRALINE 50 MG TABLET. PO SCH (17:11)
[2020-11-15] MEDS: MELATONIN 3 MG TABLET PO SCH (20:19)
[2020-11-15] MEDS: PRAZOSIN 1 MG CAPSULE. PO SCH (20:19)
[2020-11-15] MEDS: traZODone 50 MG TABLET. PO SCH (20:19)
[2020-11-15] MEDS: QUEtiapine 50 MG TABLET. PO SCH (20:20)
[2020-11-15] MEDS: ACETAMINOPHEN 325 MG TABLET PO PRN (20:22)
--- NOTE | 2020-11-15 22:10 | PDOC ---
Exam Note: Raman Note: Please also refer to the separate dictated note~for this date of service dictated separately.~Patient seen individually. Discussed the patient with Nursing staff reviewed the chart.~Reviewed interim history and current functioning. Reviewed vital signs,~Labs/ Radiology~and current medications noted below. Continue current treatment with the changes noted in the dictated addendum note Assessment: Vital Signs/I&O: Vital Signs Date Time Temp Pulse Resp B/P (MAP) Pulse Ox O2 Delivery O2 Flow Rate FiO2 11/15/20 20:19 85 131/65 11/15/20 15:52 97.8 11/15/20 15:51 20 100 11/14/20 15:36 Room Air I & O 11/14/20 11/14/20 11/15/20 15:00 23:00 07:00 Intake Total 250 ml 20 ml 120 ml Balance 250 ml 20 ml 120 ml Current Medications: Meds: Current Medications Medications (Trade) Dose Ordered Sig/Abundio Route PRN Reason Start Time Stop Time Status Last Admin Dose Admin Acetaminophen (Tylenol) 650 mg PRN Q6HRS PRN PO MILD PAIN / TEMP > 100.3'F 11/02/20 11:30 11/15/20 20:22 Multi-Ingredient Ointment (Analgesic [place]) 1 will PRN QID PRN TP MUSCLE PAIN 11/02/20 11:30 Al Hydroxide/Mg Hydroxide (Mylanta Plus Xs) 15 ml PRN AFTMEALHC PRN PO DYSPEPSIA 11/02/20 11:30 Magnesium Hydroxide (Milk Of Magnesia) 2,400 mg PRN QHS PRN PO CONSTIPATION 11/02/20 11:30 11/13/20 19:51 Aspirin (Aspirin Chewable) 81 mg DAILY PO 11/03/20 09:00 11/15/20 08:34 Carbamazepine (TEGretol) 200 mg DAILY PO 11/03/20 09:00 11/15/20 09:00 Carbamazepine (TEGretol) 200 mg DAILYWSUP PO 11/02/20 17:00 11/15/20 17:09 Furosemide (Lasix) 40 mg DAILY PO 11/03/20 09:00 11/11/20 14:39 DC 11/11/20 08:46 Lorazepam (Ativan) 1 mg BID PO 11/02/20 21:00 11/15/20 19:36 DC 11/15/20 08:34 Melatonin (Melatonin) 3 mg HS PO 11/02/20 21:00 11/15/20 20:19 Oxycodone/ Acetaminophen (Percocet 7.5/ 325) 1 tab PRN DAILY PRN PO MOD-SEV PAIN 11/02/20 12:45 11/10/20 23:00 Potassium Chloride (Klor-Con) 20 meq BID PO 11/02/20 21:00 11/15/20 20:22 Prazosin HCl (Minipress) 2 mg QHS PO 11/02/20 21:00 11/15/20 20:19 Quetiapine Fumarate (SEROquel) 62.5 mg 0900,1300,1700 PO 11/02/20 13:00 11/15/20 17:00 Quetiapine Fumarate (SEROquel) 50 mg PRN DAILY PRN PO 3RD CHOICE FOR ANXIETY 11/02/20 12:45 Quetiapine Fumarate (SEROquel) 75 mg QHS PO 11/02/20 21:00 11/15/20 20:20 Sertraline HCl (Zoloft) 100 mg DAILY@1700 PO 11/02/20 17:00 11/09/20 17:12 DC 11/08/20 17:52 Trazodone HCl (Desyrel) 50 mg QHS PO 11/02/20 21:00 11/15/20 20:19 Multivitamins/ Calcium (Thera-M Plus) 1 tab DAILY PO 11/03/20 09:00 11/15/20 08:35 Pantoprazole Sodium (Protonix) 40 mg DAILYAC PO 11/03/20 07:30 11/15/20 08:35 Influenza Virus Vaccine Quadrival (Flulaval Quad [id number] Syringe) 0.5 ml ONCE ONCE VAX IM 11/03/20 09:00 11/03/20 09:01 DC 11/03/20 08:52 Sertraline HCl (Zoloft) 75 mg DAILY@1700 PO 11/09/20 18:15 11/15/20 17:11 Lorazepam (Ativan) 1 mg BID PO 11/15/20 20:00 11/15/20 20:22 Current Medications Medications (Trade) Dose Ordered Sig/Abundio Route PRN Reason Start Time Stop Time Status Last Admin Dose Admin Lorazepam (Ativan) 1 mg BID PO 11/15/20 20:00 11/15/20 20:22 I have reviewed the current psychotropics carefully including drug interactions. Risk benefit ratio favors no change other than as noted in my dictated progress note. Diagnosis: Problems: (1) Dementia, vascular, with depression (2) Impulse control disorder, unspecified (3) Anxiety disorder, unspecified (4) Dementia, vascular, with delusions (5) Dementia in Alzheimer's disease with depression (6) Dementia in Alzheimer's disease with delusions (7) Dementia of the Alzheimer's type with early onset with behavioral disturbance (8) Major neurocognitive disorder DUANE NINO MD Nov 15, 2020 22:10
[2020-11-16 06:12] VITALS: BP 145/70
[2020-11-16] MEDS: LORazepam 1 MG TABLET PO SCH ×2 (08:26→21:08)
[2020-11-16] MEDS: QUEtiapine 25 MG TABLET. PO SCH ×3 (08:26→17:14)
[2020-11-16] MEDS: MULTIVITAMIN with MINERAL TABLET. PO SCH (08:27)
[2020-11-16] MEDS: carBAMazepine 200 MG TABLET PO SCH ×2 (08:27→17:14)
[2020-11-16] MEDS: POTASSIUM CHLORIDE 20 MEQ TABLET.ER. PO SCH ×2 (08:28→21:08)
[2020-11-16] MEDS: ASPIRIN CHEWABLE 81 MG TABLET. PO SCH (08:28)
[2020-11-16] MEDS: PANTOPRAZOLE 40 MG TABLET. PO SCH (08:28)
[2020-11-16 15:51] VITALS: BP 114/79
[2020-11-16] MEDS: SERTRALINE 50 MG TABLET. PO SCH (17:22)
[2020-11-16] MEDS: QUEtiapine 50 MG TABLET. PO SCH (21:07)
[2020-11-16] MEDS: MELATONIN 3 MG TABLET PO SCH (21:08)
[2020-11-16] MEDS: traZODone 50 MG TABLET. PO SCH (21:08)
[2020-11-16] MEDS: PRAZOSIN 1 MG CAPSULE. PO SCH (21:08)
--- NOTE | 2020-11-16 21:58 | PDOC ---
Exam Note: Raman Note: Please also refer to the separate dictated note~for this date of service dictated separately.~Patient seen individually. Discussed the patient with Nursing staff reviewed the chart.~Reviewed interim history and current functioning. Reviewed vital signs,~Labs/ Radiology~and current medications noted below. Continue current treatment with the changes noted in the dictated addendum note Assessment: Vital Signs/I&O: Vital Signs Date Time Temp Pulse Resp B/P (MAP) Pulse Ox O2 Delivery O2 Flow Rate FiO2 11/16/20 21:08 68 114/79 11/16/20 15:51 98.7 16 99 11/14/20 15:36 Room Air I & O 11/15/20 11/15/20 11/16/20 15:00 23:00 07:00 Intake Total 720 ml 600 ml Balance 720 ml 600 ml Current Medications: Meds: Current Medications Medications (Trade) Dose Ordered Sig/Abundio Route PRN Reason Start Time Stop Time Status Last Admin Dose Admin Acetaminophen (Tylenol) 650 mg PRN Q6HRS PRN PO MILD PAIN / TEMP > 100.3'F 11/02/20 11:30 11/15/20 20:22 Multi-Ingredient Ointment (Analgesic [place]) 1 will PRN QID PRN TP MUSCLE PAIN 11/02/20 11:30 Al Hydroxide/Mg Hydroxide (Mylanta Plus Xs) 15 ml PRN AFTMEALHC PRN PO DYSPEPSIA 11/02/20 11:30 Magnesium Hydroxide (Milk Of Magnesia) 2,400 mg PRN QHS PRN PO CONSTIPATION 11/02/20 11:30 11/13/20 19:51 Aspirin (Aspirin Chewable) 81 mg DAILY PO 11/03/20 09:00 11/16/20 08:28 Carbamazepine (TEGretol) 200 mg DAILY PO 11/03/20 09:00 11/16/20 08:27 Carbamazepine (TEGretol) 200 mg DAILYWSUP PO 11/02/20 17:00 11/16/20 17:14 Furosemide (Lasix) 40 mg DAILY PO 11/03/20 09:00 11/11/20 14:39 DC 11/11/20 08:46 Lorazepam (Ativan) 1 mg BID PO 11/02/20 21:00 11/15/20 19:36 DC 11/15/20 08:34 Melatonin (Melatonin) 3 mg HS PO 11/02/20 21:00 11/16/20 21:08 Oxycodone/ Acetaminophen (Percocet 7.5/ 325) 1 tab PRN DAILY PRN PO MOD-SEV PAIN 11/02/20 12:45 11/10/20 23:00 Potassium Chloride (Klor-Con) 20 meq BID PO 11/02/20 21:00 11/16/20 21:08 Prazosin HCl (Minipress) 2 mg QHS PO 11/02/20 21:00 11/16/20 21:08 Quetiapine Fumarate (SEROquel) 62.5 mg 0900,1300,1700 PO 11/02/20 13:00 11/16/20 17:14 Quetiapine Fumarate (SEROquel) 50 mg PRN DAILY PRN PO 3RD CHOICE FOR ANXIETY 11/02/20 12:45 Quetiapine Fumarate (SEROquel) 75 mg QHS PO 11/02/20 21:00 11/16/20 21:07 Sertraline HCl (Zoloft) 100 mg DAILY@1700 PO 11/02/20 17:00 11/09/20 17:12 DC 11/08/20 17:52 Trazodone HCl (Desyrel) 50 mg QHS PO 11/02/20 21:00 11/16/20 21:08 Multivitamins/ Calcium (Thera-M Plus) 1 tab DAILY PO 11/03/20 09:00 11/16/20 08:27 Pantoprazole Sodium (Protonix) 40 mg DAILYAC PO 11/03/20 07:30 11/16/20 08:28 Influenza Virus Vaccine Quadrival (Flulaval Quad [id number] Syringe) 0.5 ml ONCE ONCE VAX IM 11/03/20 09:00 11/03/20 09:01 DC 11/03/20 08:52 Sertraline HCl (Zoloft) 75 mg DAILY@1700 PO 11/09/20 18:15 11/16/20 17:22 Lorazepam (Ativan) 1 mg BID PO 11/15/20 20:00 11/16/20 21:08 I have reviewed the current psychotropics carefully including drug interactions. Risk benefit ratio favors no change other than as noted in my dictated progress note. Diagnosis: Problems: (1) Impulse control disorder, unspecified (2) Anxiety disorder, unspecified (3) Dementia, vascular, with delusions (4) Dementia in Alzheimer's disease with depression (5) Dementia in Alzheimer's disease with delusions (6) Dementia of the Alzheimer's type with early onset with behavioral disturbance (7) Major neurocognitive disorder (8) Dementia, vascular, with depression DUANE NINO MD Nov 16, 2020 21:58
[2020-11-17 05:42] VITALS: BP 123/66
[2020-11-17] MEDS: PANTOPRAZOLE 40 MG TABLET. PO SCH (07:30)
[2020-11-17] MEDS: QUEtiapine 25 MG TABLET. PO SCH ×3 (08:34→17:13)
[2020-11-17] MEDS: carBAMazepine 200 MG TABLET PO SCH ×2 (08:34→17:13)
[2020-11-17] MEDS: POTASSIUM CHLORIDE 20 MEQ TABLET.ER. PO SCH ×2 (08:34→19:49)
[2020-11-17] MEDS: ASPIRIN CHEWABLE 81 MG TABLET. PO SCH (08:34)
[2020-11-17] MEDS: LORazepam 1 MG TABLET PO SCH ×2 (08:34→19:51)
[2020-11-17] MEDS: MULTIVITAMIN with MINERAL TABLET. PO SCH (09:00)
[2020-11-17 15:33] VITALS: BP 131/74
[2020-11-17] MEDS: SERTRALINE 50 MG TABLET. PO SCH (17:13)
[2020-11-17] MEDS: traZODone 50 MG TABLET. PO SCH (19:49)
[2020-11-17] MEDS: QUEtiapine 50 MG TABLET. PO SCH (19:49)
[2020-11-17] MEDS: PRAZOSIN 1 MG CAPSULE. PO SCH (19:50)
[2020-11-17] MEDS: MELATONIN 3 MG TABLET PO SCH (19:50)
--- NOTE | 2020-11-17 22:02 | PDOC ---
Exam Note: Raman Note: Please also refer to the separate dictated note~for this date of service dictated separately.~Patient seen individually. Discussed the patient with Nursing staff reviewed the chart.~Reviewed interim history and current functioning. Reviewed vital signs,~Labs/ Radiology~and current medications noted below. Continue current treatment with the changes noted in the dictated addendum note Assessment: Vital Signs/I&O: Vital Signs Date Time Temp Pulse Resp B/P (MAP) Pulse Ox O2 Delivery O2 Flow Rate FiO2 11/17/20 19:50 72 131/74 11/17/20 15:33 97.8 20 100 Room Air I & O 11/16/20 11/16/20 11/17/20 14:59 22:59 06:59 Intake Total 440 ml 480 ml Balance 440 ml 480 ml Current Medications: Meds: Current Medications Medications (Trade) Dose Ordered Sig/Abundio Route PRN Reason Start Time Stop Time Status Last Admin Dose Admin Acetaminophen (Tylenol) 650 mg PRN Q6HRS PRN PO MILD PAIN / TEMP > 100.3'F 11/02/20 11:30 11/15/20 20:22 Multi-Ingredient Ointment (Analgesic [place]) 1 will PRN QID PRN TP MUSCLE PAIN 11/02/20 11:30 Al Hydroxide/Mg Hydroxide (Mylanta Plus Xs) 15 ml PRN AFTMEALHC PRN PO DYSPEPSIA 11/02/20 11:30 Magnesium Hydroxide (Milk Of Magnesia) 2,400 mg PRN QHS PRN PO CONSTIPATION 11/02/20 11:30 11/13/20 19:51 Aspirin (Aspirin Chewable) 81 mg DAILY PO 11/03/20 09:00 11/17/20 08:34 Carbamazepine (TEGretol) 200 mg DAILY PO 11/03/20 09:00 11/17/20 08:34 Carbamazepine (TEGretol) 200 mg DAILYWSUP PO 11/02/20 17:00 11/17/20 17:13 Furosemide (Lasix) 40 mg DAILY PO 11/03/20 09:00 11/11/20 14:39 DC 11/11/20 08:46 Lorazepam (Ativan) 1 mg BID PO 11/02/20 21:00 11/15/20 19:36 DC 11/15/20 08:34 Melatonin (Melatonin) 3 mg HS PO 11/02/20 21:00 11/17/20 19:50 Oxycodone/ Acetaminophen (Percocet 7.5/ 325) 1 tab PRN DAILY PRN PO MOD-SEV PAIN 11/02/20 12:45 11/10/20 23:00 Potassium Chloride (Klor-Con) 20 meq BID PO 11/02/20 21:00 11/17/20 19:49 Prazosin HCl (Minipress) 2 mg QHS PO 11/02/20 21:00 11/17/20 19:50 Quetiapine Fumarate (SEROquel) 62.5 mg 0900,1300,1700 PO 11/02/20 13:00 11/17/20 17:13 Quetiapine Fumarate (SEROquel) 50 mg PRN DAILY PRN PO 3RD CHOICE FOR ANXIETY 11/02/20 12:45 Quetiapine Fumarate (SEROquel) 75 mg QHS PO 11/02/20 21:00 11/17/20 19:49 Sertraline HCl (Zoloft) 100 mg DAILY@1700 PO 11/02/20 17:00 11/09/20 17:12 DC 11/08/20 17:52 Trazodone HCl (Desyrel) 50 mg QHS PO 11/02/20 21:00 11/17/20 19:49 Multivitamins/ Calcium (Thera-M Plus) 1 tab DAILY PO 11/03/20 09:00 11/17/20 09:00 Pantoprazole Sodium (Protonix) 40 mg DAILYAC PO 11/03/20 07:30 11/17/20 07:30 Influenza Virus Vaccine Quadrival (Flulaval Quad [id number] Syringe) 0.5 ml ONCE ONCE VAX IM 11/03/20 09:00 11/03/20 09:01 DC 11/03/20 08:52 Sertraline HCl (Zoloft) 75 mg DAILY@1700 PO 11/09/20 18:15 11/17/20 17:13 Lorazepam (Ativan) 1 mg BID PO 11/15/20 20:00 11/17/20 19:51 I have reviewed the current psychotropics carefully including drug interactions. Risk benefit ratio favors no change other than as noted in my dictated progress note. Diagnosis: Problems: (1) Impulse control disorder, unspecified (2) Anxiety disorder, unspecified (3) Dementia, vascular, with delusions (4) Dementia in Alzheimer's disease with depression (5) Dementia in Alzheimer's disease with delusions (6) Dementia of the Alzheimer's type with early onset with behavioral disturbance (7) Major neurocognitive disorder (8) Dementia, vascular, with depression DUANE NINO MD Nov 17, 2020 22:02
[2020-11-18 06:13] VITALS: BP 132/64
[2020-11-18] MEDS: POTASSIUM CHLORIDE 20 MEQ TABLET.ER. PO SCH ×2 (08:13→20:06)
[2020-11-18] MEDS: carBAMazepine 200 MG TABLET PO SCH ×2 (08:13→17:09)
[2020-11-18] MEDS: PANTOPRAZOLE 40 MG TABLET. PO SCH (08:13)
[2020-11-18] MEDS: ASPIRIN CHEWABLE 81 MG TABLET. PO SCH (08:13)
[2020-11-18] MEDS: MULTIVITAMIN with MINERAL TABLET. PO SCH (08:13)
[2020-11-18] MEDS: QUEtiapine 25 MG TABLET. PO SCH ×3 (08:14→17:09)
--- NOTE | 2020-11-18 08:51 | PDOC ---
Exam Note: Raman Note: This note is a late entry for 11/15/2020 covers elements not covered in my initial note. Subjective: This is my first visit with the patient since 11/03/[address] Zamora covered for me during my vacation. Reviewed information with Dr. Zamora, reviewed current and past records, reviewed interim history and circumstances prompting this referral for inpatient psychiatric stabilization. The patient was seen individually in the evening of 11/15/2020 with Alysa MONTEMAYOR, discussed and reviewed the chart. The patient slept 7-3/4 hours previous night. I met with the patient in the hallway in the evening. Overall he has been less aggressive. He remains confused, wandering. No p.r.n.s. have been given. Review of Systems: No CV, , pulmonary, eye, ENT system symptoms on review. Reliability poor. Mental Status Exam: The patient is oriented to himself. Insight and judgment, recent and remote memory, attention and concentration, fund of knowledge is poor consistent with his diagnoses. Laboratory Data: Reviewed. Impression: Major neurocognitive disorder Alzheimer vascular with delusion, depression, and behavioral disturbance. Anxiety disorder unspecified. Impulse control disorder unspecified. PTSD. Plan: Continue current psychotropics mentioned in my initial note including Tegretol, melatonin, Prazosin for PTSD, Seroquel, Zoloft, trazodone for insomnia, Ativan 1 mg b.i.d. We will try and taper this and Seroquel p.r.n. Ma ke further adjustments as clinically indicated. Tegretol level is 4.4 but since he is doing better despite slightly low level, we will not change for now. Assessment: Vital Signs/I&O: Vital Signs Date Time Temp Pulse Resp B/P (MAP) Pulse Ox O2 Delivery O2 Flow Rate FiO2 11/18/20 06:13 96.6 75 20 132/64 (86) 99 11/17/20 15:33 Room Air I & O 11/17/20 11/17/20 11/18/20 15:00 23:00 07:00 Intake Total 540 ml 480 ml Balance 540 ml 480 ml Current Medications: Meds: Current Medications Medications (Trade) Dose Ordered Sig/Abundio Route PRN Reason Start Time Stop Time Status Last Admin Dose Admin Acetaminophen (Tylenol) 650 mg PRN Q6HRS PRN PO MILD PAIN / TEMP > 100.3'F 11/02/20 11:30 11/15/20 20:22 Multi-Ingredient Ointment (Analgesic [place]) 1 will PRN QID PRN TP MUSCLE PAIN 11/02/20 11:30 Al Hydroxide/Mg Hydroxide (Mylanta Plus Xs) 15 ml PRN AFTMEALHC PRN PO DYSPEPSIA 11/02/20 11:30 Magnesium Hydroxide (Milk Of Magnesia) 2,400 mg PRN QHS PRN PO CONSTIPATION 11/02/20 11:30 11/13/20 19:51 Aspirin (Aspirin Chewable) 81 mg DAILY PO 11/03/20 09:00 11/18/20 08:13 Carbamazepine (TEGretol) 200 mg DAILY PO 11/03/20 09:00 11/18/20 08:13 Carbamazepine (TEGretol) 200 mg DAILYWSUP PO 11/02/20 17:00 11/17/20 17:13 Furosemide (Lasix) 40 mg DAILY PO 11/03/20 09:00 11/11/20 14:39 DC 11/11/20 08:46 Lorazepam (Ativan) 1 mg BID PO 11/02/20 21:00 11/15/20 19:36 DC 11/15/20 08:34 Melatonin (Melatonin) 3 mg HS PO 11/02/20 21:00 11/17/20 19:50 Oxycodone/ Acetaminophen (Percocet 7.5/ 325) 1 tab PRN DAILY PRN PO MOD-SEV PAIN 11/02/20 12:45 11/10/20 23:00 Potassium Chloride (Klor-Con) 20 meq BID PO 11/02/20 21:00 11/18/20 08:13 Prazosin HCl (Minipress) 2 mg QHS PO 11/02/20 21:00 11/17/20 19:50 Quetiapine Fumarate (SEROquel) 62.5 mg 0900,1300,1700 PO 11/02/20 13:00 11/18/20 08:14 Quetiapine Fumarate (SEROquel) 50 mg PRN DAILY PRN PO 3RD CHOICE FOR ANXIETY 11/02/20 12:45 Quetiapine Fumarate (SEROquel) 75 mg QHS PO 11/02/20 21:00 11/17/20 19:49 Sertraline HCl (Zoloft) 100 mg DAILY@1700 PO 11/02/20 17:00 11/09/20 17:12 DC 11/08/20 17:52 Trazodone HCl (Desyrel) 50 mg QHS PO 11/02/20 21:00 11/17/20 19:49 Multivitamins/ Calcium (Thera-M Plus) 1 tab DAILY PO 11/03/20 09:00 11/18/20 08:13 Pantoprazole Sodium (Protonix) 40 mg DAILYAC PO 11/03/20 07:30 11/18/20 08:13 Influenza Virus Vaccine Quadrival (Flulaval Quad Syringe) 0.5 ml ONCE ONCE VAX IM 11/03/20 09:00 11/03/20 09:01 DC 11/03/20 08:52 Sertraline HCl (Zoloft) 75 mg DAILY@1700 PO 11/09/20 18:15 11/17/20 17:13 Lorazepam (Ativan) 1 mg BID PO 11/15/20 20:00 11/17/20 19:51 I have reviewed the current psychotropics carefully including drug interactions. Risk benefit ratio favors no change other than as noted in my dictated progress note. 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
[2020-11-18 08:55] LABS: BASO # 0.1 x10^3/uL (0.0-0.2); BASO % 1 % (0-3); EOS # 0.6 x10^3/uL (0.0-0.7); EOS % 15 % (0-3); HEMATOCRIT 39.4 % (39.0-53.0); HEMOGLOBIN 12.5 g/dL (13.0-17.5); LYMPH % 27 % (24-48); MEAN CORPUSCULAR HEMOGLOBIN 28 pg (25-35); MEAN CORPUSCULAR HGB CONC 32 g/dL (31-37); MEAN CORPUSCULAR VOLUME 89 fL (79-100); MONO # 0.4 x10^3/uL (0.0-1.1); MONO % 11 % (0-9); NEUT # 1.8 x10^3uL (1.8-7.7); NEUT % 46 % (31-73); PLATELET COUNT 126 x10^3/uL (140-400); RED BLOOD COUNT 4.45 x10^6/uL (4.30-5.70); RED CELL DISTRIBUTION WIDTH 16.7 % (11.5-14.5); WHITE BLOOD COUNT 3.9 x10^3/uL (4.0-11.0)
[2020-11-18] MEDS: LORazepam 1 MG TABLET PO SCH ×2 (09:00→20:08)
[2020-11-18 09:17] LABS: ALBUMIN 3.4 g/dL (3.4-5.0); ALBUMIN/GLOBULIN RATIO 0.9 (1.0-1.7); CREATININE 0.8 mg/dL (0.7-1.3); GFR 93.7; POTASSIUM 4.2 mmol/L (3.5-5.1); TOTAL BILIRUBIN 0.2 mg/dL (0.2-1.0)
--- NOTE | 2020-11-18 09:23 | PDOC ---
Exam Note: Raman Note: This note is a late entry for 11/16/2020 covers elements not covered in my initial note. Subjective: The patient was seen individually in the evening of 11/16/2020 with Bere MONTEMAYOR, discussed and reviewed the chart. The patient slept 7-1/4 hours previous night. He has been calm, confused. I met with the patient in the hallway outside his room. He is compliant with his medications. He gets easily startled as part of his PTSD symptoms. Review of Systems: No CV, , pulmonary, system symptoms on review but he is legally blind and hard of hearing but unable to verbalize this when questioned. Reliability poor. Mental Status Exam: The patient is oriented to himself. Insight and judgment, recent and remote memory, attention and concentration, fund of knowledge is poor consistent with his diagnoses. Laboratory Data: Reviewed. Impression: Major neurocognitive disorder Alzheimer vascular with delusion, depression, and behavioral disturbance. Anxiety disorder unspecified. Impulse control disorder unspecified. PTSD. Plan: Continue current psychotropics mentioned in my initial note Tegretol, melatonin, Prazosin Seroquel, Zoloft, and trazodone. Adjust further as clinically indicated. Assessment: Vital Signs/I&O: Vital Signs Date Time Temp Pulse Resp B/P (MAP) Pulse Ox O2 Delivery O2 Flow Rate FiO2 11/18/20 06:13 96.6 75 20 132/64 (86) 99 11/17/20 15:33 Room Air I & O 11/17/20 11/17/20 11/18/20 15:00 23:00 07:00 Intake Total 540 ml 480 ml Balance 540 ml 480 ml Labs: Laboratory Tests Test 11/18/20 08:00 White Blood Count 3.9 x10^3/uL (4.0-11.0) L Red Blood Count 4.45 x10^6/uL (4.30-5.70) Hemoglobin 12.5 g/dL (13.0-17.5) L Hematocrit 39.4 % (39.0-53.0) Mean Corpuscular Volume 89 fL (79-100) Mean Corpuscular Hemoglobin 28 pg (25-35) Mean Corpuscular Hemoglobin Concent 32 g/dL (31-37) Red Cell Distribution Width 16.7 % (11.5-14.5) H Platelet Count 126 x10^3/uL (140-400) L Neutrophils (%) (Auto) 46 % (31-73) Lymphocytes (%) (Auto) 27 % (24-48) Monocytes (%) (Auto) 11 % (0-9) H Eosinophils (%) (Auto) 15 % (0-3) H Basophils (%) (Auto) 1 % (0-3) Neutrophils # (Auto) 1.8 x10^3uL (1.8-7.7) Lymphocytes # (Auto) 1.0 x10^3/uL (1.0-4.8) Monocytes # (Auto) 0.4 x10^3/uL (0.0-1.1) Eosinophils # (Auto) 0.6 x10^3/uL (0.0-0.7) Basophils # (Auto) 0.1 x10^3/uL (0.0-0.2) Current Medications: Meds: Laboratory Tests Test 11/18/20 08:00 White Blood Count 3.9 x10^3/uL Red Blood Count 4.45 x10^6/uL Hemoglobin 12.5 g/dL Hematocrit 39.4 % Mean Corpuscular Volume 89 fL Mean Corpuscular Hemoglobin 28 pg Mean Corpuscular Hemoglobin Concent 32 g/dL Red Cell Distribution Width 16.7 % Platelet Count 126 x10^3/uL Neutrophils (%) (Auto) 46 % Lymphocytes (%) (Auto) 27 % Monocytes (%) (Auto) 11 % Eosinophils (%) (Auto) 15 % Basophils (%) (Auto) 1 % Neutrophils # (Auto) 1.8 x10^3uL Lymphocytes # (Auto) 1.0 x10^3/uL Monocytes # (Auto) 0.4 x10^3/uL Eosinophils # (Auto) 0.6 x10^3/uL Basophils # (Auto) 0.1 x10^3/uL Current Medications Medications (Trade) Dose Ordered Sig/Abundio Route PRN Reason Start Time Stop Time Status Last Admin Dose Admin Acetaminophen (Tylenol) 650 mg PRN Q6HRS PRN PO MILD PAIN / TEMP > 100.3'F 11/02/20 11:30 11/15/20 20:22 Multi-Ingredient Ointment (Analgesic [place]) 1 will PRN QID PRN TP MUSCLE PAIN 11/02/20 11:30 Al Hydroxide/Mg Hydroxide (Mylanta Plus Xs) 15 ml PRN AFTMEALHC PRN PO DYSPEPSIA 11/02/20 11:30 Magnesium Hydroxide (Milk Of Magnesia) 2,400 mg PRN QHS PRN PO CONSTIPATION 11/02/20 11:30 11/13/20 19:51 Aspirin (Aspirin Chewable) 81 mg DAILY PO 11/03/20 09:00 11/18/20 08:13 Carbamazepine (TEGretol) 200 mg DAILY PO 11/03/20 09:00 11/18/20 08:13 Carbamazepine (TEGretol) 200 mg DAILYWSUP PO 11/02/20 17:00 11/17/20 17:13 Furosemide (Lasix) 40 mg DAILY PO 11/03/20 09:00 11/11/20 14:39 DC 11/11/20 08:46 Lorazepam (Ativan) 1 mg BID PO 11/02/20 21:00 11/15/20 19:36 DC 11/15/20 08:34 Melatonin (Melatonin) 3 mg HS PO 11/02/20 21:00 11/17/20 19:50 Oxycodone/ Acetaminophen (Percocet 7.5/ 325) 1 tab PRN DAILY PRN PO MOD-SEV PAIN 11/02/20 12:45 11/10/20 23:00 Potassium Chloride (Klor-Con) 20 meq BID PO 11/02/20 21:00 11/18/20 08:13 Prazosin HCl (Minipress) 2 mg QHS PO 11/02/20 21:00 11/17/20 19:50 Quetiapine Fumarate (SEROquel) 62.5 mg 0900,1300,1700 PO 11/02/20 13:00 11/18/20 08:14 Quetiapine Fumarate (SEROquel) 50 mg PRN DAILY PRN PO 3RD CHOICE FOR ANXIETY 11/02/20 12:45 Quetiapine Fumarate (SEROquel) 75 mg QHS PO 11/02/20 21:00 11/17/20 19:49 Sertraline HCl (Zoloft) 100 mg DAILY@1700 PO 11/02/20 17:00 11/09/20 17:12 DC 11/08/20 17:52 Trazodone HCl (Desyrel) 50 mg QHS PO 11/02/20 21:00 11/17/20 19:49 Multivitamins/ Calcium (Thera-M Plus) 1 tab DAILY PO 11/03/20 09:00 11/18/20 08:13 Pantoprazole Sodium (Protonix) 40 mg DAILYAC PO 11/03/20 07:30 11/18/20 08:13 Influenza Virus Vaccine Quadrival (Flulaval Quad Syringe) 0.5 ml ONCE ONCE VAX IM 11/03/20 09:00 11/03/20 09:01 DC 11/03/20 08:52 Sertraline HCl (Zoloft) 75 mg DAILY@1700 PO 11/09/20 18:15 11/17/20 17:13 Lorazepam (Ativan) 1 mg BID PO 11/15/20 20:00 11/18/20 09:00 I have reviewed the current psychotropics carefully including drug interactions. Risk benefit ratio favors no change other than as noted in my dictated progress note. Diagnosis: Problems: (1) Impulse control disorder, unspecified (2) Anxiety disorder, unspecified (3) Dementia, vascular, with delusions (4) Dementia in Alzheimer's disease with depression (5) Dementia in Alzheimer's disease with delusions (6) Dementia of the Alzheimer's type with early onset with behavioral disturbance (7) Major neurocognitive disorder (8) Dementia, vascular, with depression (9) PTSD (post-traumatic stress disorder) DUANE NINO MD Nov 18, 2020 09:23
[2020-11-18 16:00] VITALS: BP 110/63
[2020-11-18] MEDS: SERTRALINE 50 MG TABLET. PO SCH (17:09)
[2020-11-18] MEDS: MELATONIN 3 MG TABLET PO SCH (20:00)
[2020-11-18] MEDS: QUEtiapine 50 MG TABLET. PO SCH (20:01)
[2020-11-18] MEDS: traZODone 50 MG TABLET. PO SCH (20:01)
[2020-11-18] MEDS: PRAZOSIN 1 MG CAPSULE. PO SCH (20:07)
--- NOTE | 2020-11-18 21:49 | PDOC ---
Exam Note: Raman Note: Please also refer to the separate dictated note~for this date of service dictated separately.~Patient seen individually. Discussed the patient with Nursing staff reviewed the chart.~Reviewed interim history and current functioning. Reviewed vital signs,~Labs/ Radiology~and current medications noted below. Continue current treatment with the changes noted in the dictated addendum note Assessment: Vital Signs/I&O: Vital Signs Date Time Temp Pulse Resp B/P (MAP) Pulse Ox O2 Delivery O2 Flow Rate FiO2 11/18/20 20:07 76 110/63 11/18/20 16:00 98.3 20 98 Room Air I & O 11/17/20 11/17/20 11/18/20 14:59 22:59 06:59 Intake Total 540 ml 480 ml Balance 540 ml 480 ml Labs: Laboratory Tests Test 11/18/20 08:00 White Blood Count 3.9 x10^3/uL (4.0-11.0) L Red Blood Count 4.45 x10^6/uL (4.30-5.70) Hemoglobin 12.5 g/dL (13.0-17.5) L Hematocrit 39.4 % (39.0-53.0) Mean Corpuscular Volume 89 fL (79-100) Mean Corpuscular Hemoglobin 28 pg (25-35) Mean Corpuscular Hemoglobin Concent 32 g/dL (31-37) Red Cell Distribution Width 16.7 % (11.5-14.5) H Platelet Count 126 x10^3/uL (140-400) L Neutrophils (%) (Auto) 46 % (31-73) Lymphocytes (%) (Auto) 27 % (24-48) Monocytes (%) (Auto) 11 % (0-9) H Eosinophils (%) (Auto) 15 % (0-3) H Basophils (%) (Auto) 1 % (0-3) Neutrophils # (Auto) 1.8 x10^3uL (1.8-7.7) Lymphocytes # (Auto) 1.0 x10^3/uL (1.0-4.8) Monocytes # (Auto) 0.4 x10^3/uL (0.0-1.1) Eosinophils # (Auto) 0.6 x10^3/uL (0.0-0.7) Basophils # (Auto) 0.1 x10^3/uL (0.0-0.2) Sodium Level 142 mmol/L (136-145) Potassium Level 4.2 mmol/L (3.5-5.1) Chloride Level 108 mmol/L (98-107) H Carbon Dioxide Level 29 mmol/L (21-32) Anion Gap 5 (6-14) L Blood Urea Nitrogen 28 mg/dL (8-26) H Creatinine 0.8 mg/dL (0.7-1.3) Estimated GFR (Cockcroft-Gault) 93.7 BUN/Creatinine Ratio 35 (6-20) H Glucose Level 83 mg/dL (70-99) Calcium Level 9.0 mg/dL (8.5-10.1) Total Bilirubin 0.2 mg/dL (0.2-1.0) Aspartate Amino Transferase (AST) 18 U/L (15-37) Alanine Aminotransferase (ALT) 20 U/L (16-63) Alkaline Phosphatase 72 U/L (46-116) Total Protein 7.0 g/dL (6.4-8.2) Albumin 3.4 g/dL (3.4-5.0) Albumin/Globulin Ratio 0.9 (1.0-1.7) L Current Medications: Meds: Laboratory Tests Test 11/18/20 08:00 White Blood Count 3.9 x10^3/uL Red Blood Count 4.45 x10^6/uL Hemoglobin 12.5 g/dL Hematocrit 39.4 % Mean Corpuscular Volume 89 fL Mean Corpuscular Hemoglobin 28 pg Mean Corpuscular Hemoglobin Concent 32 g/dL Red Cell Distribution Width 16.7 % Platelet Count 126 x10^3/uL Neutrophils (%) (Auto) 46 % Lymphocytes (%) (Auto) 27 % Monocytes (%) (Auto) 11 % Eosinophils (%) (Auto) 15 % Basophils (%) (Auto) 1 % Neutrophils # (Auto) 1.8 x10^3uL Lymphocytes # (Auto) 1.0 x10^3/uL Monocytes # (Auto) 0.4 x10^3/uL Eosinophils # (Auto) 0.6 x10^3/uL Basophils # (Auto) 0.1 x10^3/uL Sodium Level 142 mmol/L Potassium Level 4.2 mmol/L Chloride Level 108 mmol/L Carbon Dioxide Level 29 mmol/L Anion Gap 5 Blood Urea Nitrogen 28 mg/dL Creatinine 0.8 mg/dL Estimated GFR (Cockcroft-Gault) 93.7 BUN/Creatinine Ratio 35 Glucose Level 83 mg/dL Calcium Level 9.0 mg/dL Total Bilirubin 0.2 mg/dL Aspartate Amino Transf (AST/SGOT) 18 U/L Alanine Aminotransferase (ALT/SGPT) 20 U/L Alkaline Phosphatase 72 U/L Total Protein 7.0 g/dL Albumin 3.4 g/dL Albumin/Globulin Ratio 0.9 Current Medications Medications (Trade) Dose Ordered Sig/Abundio Route PRN Reason Start Time Stop Time Status Last Admin Dose Admin Acetaminophen (Tylenol) 650 mg PRN Q6HRS PRN PO MILD PAIN / TEMP > 100.3'F 11/02/20 11:30 11/15/20 20:22 Multi-Ingredient Ointment (Analgesic [place]) 1 will PRN QID PRN TP MUSCLE PAIN 11/02/20 11:30 Al Hydroxide/Mg Hydroxide (Mylanta Plus Xs) 15 ml PRN AFTMEALHC PRN PO DYSPEPSIA 11/02/20 11:30 Magnesium Hydroxide (Milk Of Magnesia) 2,400 mg PRN QHS PRN PO CONSTIPATION 11/02/20 11:30 11/13/20 19:51 Aspirin (Aspirin Chewable) 81 mg DAILY PO 11/03/20 09:00 11/18/20 08:13 Carbamazepine (TEGretol) 200 mg DAILY PO 11/03/20 09:00 11/18/20 08:13 Carbamazepine (TEGretol) 200 mg DAILYWSUP PO 11/02/20 17:00 11/18/20 17:09 Furosemide (Lasix) 40 mg DAILY PO 11/03/20 09:00 11/11/20 14:39 DC 11/11/20 08:46 Lorazepam (Ativan) 1 mg BID PO 11/02/20 21:00 11/15/20 19:36 DC 11/15/20 08:34 Melatonin (Melatonin) 3 mg HS PO 11/02/20 21:00 11/18/20 20:00 Oxycodone/ Acetaminophen (Percocet 7.5/ 325) 1 tab PRN DAILY PRN PO MOD-SEV PAIN 11/02/20 12:45 11/10/20 23:00 Potassium Chloride (Klor-Con) 20 meq BID PO 11/02/20 21:00 11/18/20 20:06 Prazosin HCl (Minipress) 2 mg QHS PO 11/02/20 21:00 11/18/20 20:07 Quetiapine Fumarate (SEROquel) 62.5 mg 0900,1300,1700 PO 11/02/20 13:00 11/18/20 17:09 Quetiapine Fumarate (SEROquel) 50 mg PRN DAILY PRN PO 3RD CHOICE FOR ANXIETY 11/02/20 12:45 Quetiapine Fumarate (SEROquel) 75 mg QHS PO 11/02/20 21:00 11/18/20 20:01 Sertraline HCl (Zoloft) 100 mg DAILY@1700 PO 11/02/20 17:00 11/09/20 17:12 DC 11/08/20 17:52 Trazodone HCl (Desyrel) 50 mg QHS PO 11/02/20 21:00 11/18/20 20:01 Multivitamins/ Calcium (Thera-M Plus) 1 tab DAILY PO 11/03/20 09:00 11/18/20 08:13 Pantoprazole Sodium (Protonix) 40 mg DAILYAC PO 11/03/20 07:30 11/18/20 08:13 Influenza Virus Vaccine Quadrival (Flulaval Quad [id number] Syringe) 0.5 ml ONCE ONCE VAX IM 11/03/20 09:00 11/03/20 09:01 DC 11/03/20 08:52 Sertraline HCl (Zoloft) 75 mg DAILY@1700 PO 11/09/20 18:15 11/18/20 17:09 Lorazepam (Ativan) 1 mg BID PO 11/15/20 20:00 11/18/20 20:08 I have reviewed the current psychotropics carefully including drug interactions. Risk benefit ratio favors no change other than as noted in my dictated progress note. Diagnosis: Problems: (1) Impulse control disorder, unspecified (2) Anxiety disorder, unspecified (3) Dementia, vascular, with delusions (4) Dementia in Alzheimer's disease with depression (5) Dementia in Alzheimer's disease with delusions (6) Dementia of the Alzheimer's type with early onset with behavioral disturbance (7) Major neurocognitive disorder (8) Dementia, vascular, with depression (9) PTSD (post-traumatic stress disorder) DUANE NINO MD Nov 18, 2020 21:49
[2020-11-19] MEDS: MAGNESIUM HYDROXIDE 2,400 MG/30 ML ORAL.SUSP. PO PRN (04:49)
[2020-11-19] MEDS: ACETAMINOPHEN 325 MG TABLET PO PRN (04:49)
[2020-11-19 05:29] VITALS: BP 106/62
[2020-11-19] MEDS: ASPIRIN CHEWABLE 81 MG TABLET. PO SCH (07:56)
[2020-11-19] MEDS: PANTOPRAZOLE 40 MG TABLET. PO SCH (07:56)
[2020-11-19] MEDS: POTASSIUM CHLORIDE 20 MEQ TABLET.ER. PO SCH ×2 (07:56→20:38)
[2020-11-19] MEDS: LORazepam 1 MG TABLET PO SCH ×2 (07:56→20:39)
[2020-11-19] MEDS: carBAMazepine 200 MG TABLET PO SCH ×2 (07:59→17:20)
[2020-11-19] MEDS: MULTIVITAMIN with MINERAL TABLET. PO SCH (07:59)
[2020-11-19] MEDS: QUEtiapine 25 MG TABLET. PO SCH ×3 (07:59→17:20)
--- NOTE | 2020-11-19 08:54 | PDOC ---
Exam Note: Raman Note: This note is a late entry for 11/17/2020 covers elements not covered in my initial note. Subjective: The patient was seen individually in the evening of 11/17/2020 with Almita MONTEMAYOR, discussed and reviewed the chart. The patient slept 5-1/2 hours previous night. Overall he remains confused but has not been aggressive. He is less delusional. I met with him again in the hallway outside his room. Review of Systems: No CV, , pulmonary, system symptoms on review. Mental Status Exam: The patient is oriented just to himself. Insight and judgment, recent and remote memory, attention and concentration, fund of knowledge is poor consistent with his diagnoses. No active hallucinations noted but he is easily startled consistent with his PTSD diagnosis. Laboratory Data: Reviewed. Impression: Major neurocognitive disorder Alzheimer vascular with delusion, depression, and behavioral disturbance. Anxiety disorder unspecified. Impulse control disorder unspecified. PTSD. Plan: Continue current psychotropics mentioned in my initial note. Assessment: Vital Signs/I&O: Vital Signs Date Time Temp Pulse Resp B/P (MAP) Pulse Ox O2 Delivery O2 Flow Rate FiO2 11/19/20 05:29 97.2 85 18 106/62 (77) 96 11/18/20 16:00 Room Air I & O 0 11/18/20 11/18/20 11/19/20 15:00 23:00 07:00 Intake Total 440 ml 480 ml Balance 440 ml 480 ml Current Medications: Meds: Current Medications Medications (Trade) Dose Ordered Sig/Abundio Route PRN Reason Start Time Stop Time Status Last Admin Dose Admin Acetaminophen (Tylenol) 650 mg PRN Q6HRS PRN PO MILD PAIN / TEMP > 100.3'F 11/02/20 11:30 11/19/20 04:49 Multi-Ingredient Ointment (Analgesic [place]) 1 will PRN QID PRN TP MUSCLE PAIN 11/02/20 11:30 Al Hydroxide/Mg Hydroxide (Mylanta Plus Xs) 15 ml PRN AFTMEALHC PRN PO DYSPEPSIA 11/02/20 11:30 Magnesium Hydroxide (Milk Of Magnesia) 2,400 mg PRN QHS PRN PO CONSTIPATION 11/02/20 11:30 11/19/20 04:49 Aspirin (Aspirin Chewable) 81 mg DAILY PO 11/03/20 09:00 10/4/21 07:56 Carbamazepine (TEGretol) 200 mg DAILY PO 11/03/20 09:00 11/19/20 07:59 Carbamazepine (TEGretol) 200 mg DAILYWSUP PO 11/02/20 17:00 11/18/20 17:09 Furosemide (Lasix) 40 mg DAILY PO 11/03/20 09:00 11/11/20 14:39 DC 11/11/20 08:46 Lorazepam (Ativan) 1 mg BID PO 11/02/20 21:00 11/15/20 19:36 DC 11/15/20 08:34 Melatonin (Melatonin) 3 mg HS PO 11/02/20 21:00 11/18/20 20:00 Oxycodone/ Acetaminophen (Percocet 7.5/ 325) 1 tab PRN DAILY PRN PO MOD-SEV PAIN 11/02/20 12:45 11/10/20 23:00 Potassium Chloride (Klor-Con) 20 meq BID PO 11/02/20 21:00 11/19/20 07:56 Prazosin HCl (Minipress) 2 mg QHS PO 11/02/20 21:00 11/18/20 20:07 Quetiapine Fumarate (SEROquel) 62.5 mg 0900,1300,1700 PO 11/02/20 13:00 11/19/20 07:59 Quetiapine Fumarate (SEROquel) 50 mg PRN DAILY PRN PO 3RD CHOICE FOR ANXIETY 11/02/20 12:45 Quetiapine Fumarate (SEROquel) 75 mg QHS PO 11/02/20 21:00 11/18/20 20:01 Sertraline HCl (Zoloft) 100 mg DAILY@1700 PO 11/02/20 17:00 11/09/20 17:12 DC 11/08/20 17:52 Trazodone HCl (Desyrel) 50 mg QHS PO 11/02/20 21:00 11/18/20 20:01 Multivitamins/ Calcium (Thera-M Plus) 1 tab DAILY PO 11/03/20 09:00 11/19/20 07:59 Pantoprazole Sodium (Protonix) 40 mg DAILYAC PO 11/03/20 07:30 11/19/20 07:56 Influenza Virus Vaccine Quadrival (Flulaval Quad Syringe) 0.5 ml ONCE ONCE VAX IM 11/03/20 09:00 11/03/20 09:01 DC 11/03/20 08:52 Sertraline HCl (Zoloft) 75 mg DAILY@1700 PO 11/09/20 18:15 11/18/20 17:09 Lorazepam (Ativan) 1 mg BID PO 11/15/20 20:00 11/19/20 07:56 I have reviewed the current psychotropics carefully including drug interactions. Risk benefit ratio favors no change other than as noted in my dictated progress note. Diagnosis: Problems: (1) Impulse control disorder, unspecified (2) Anxiety disorder, unspecified (3) Dementia, vascular, with delusions (4) Dementia in Alzheimer's disease with depression (5) Dementia in Alzheimer's disease with delusions (6) Dementia of the Alzheimer's type with early onset with behavioral disturbance (7) Major neurocognitive disorder (8) Dementia, vascular, with depression (9) PTSD (post-traumatic stress disorder) DUANE NINO MD Nov 19, 2020 08:54
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
[2020-11-19 15:37] VITALS: BP 128/77
[2020-11-19] MEDS: SERTRALINE 50 MG TABLET. PO SCH (17:20)
[2020-11-19] MEDS: traZODone 50 MG TABLET. PO SCH (20:36)
[2020-11-19] MEDS: PRAZOSIN 1 MG CAPSULE. PO SCH (20:37)
[2020-11-19] MEDS: QUEtiapine 50 MG TABLET. PO SCH (20:37)
[2020-11-19] MEDS: MELATONIN 3 MG TABLET PO SCH (20:38)
--- NOTE | 2020-11-19 21:46 | PDOC ---
Exam Note: Raman Note: Please also refer to the separate dictated note~for this date of service dictated separately.~Patient seen individually. Discussed the patient with Nursing staff reviewed the chart.~Reviewed interim history and current functioning. Reviewed vital signs,~Labs/ Radiology~and current medications noted below. Continue current treatment with the changes noted in the dictated addendum note Assessment: Vital Signs/I&O: Vital Signs Date Time Temp Pulse Resp B/P (MAP) Pulse Ox O2 Delivery O2 Flow Rate FiO2 11/19/20 20:37 78 128/77 11/19/20 15:37 97.7 18 97 Room Air I & O 11/18/20 11/18/20 11/19/20 15:00 23:00 07:00 Intake Total 440 ml 480 ml Balance 440 ml 480 ml Current Medications: Meds: Current Medications Medications (Trade) Dose Ordered Sig/Abundio Route PRN Reason Start Time Stop Time Status Last Admin Dose Admin Acetaminophen (Tylenol) 650 mg PRN Q6HRS PRN PO MILD PAIN / TEMP > 100.3'F 11/02/20 11:30 11/19/20 04:49 Multi-Ingredient Ointment (Analgesic [place]) 1 will PRN QID PRN TP MUSCLE PAIN 11/02/20 11:30 Al Hydroxide/Mg Hydroxide (Mylanta Plus Xs) 15 ml PRN AFTMEALHC PRN PO DYSPEPSIA 11/02/20 11:30 Magnesium Hydroxide (Milk Of Magnesia) 2,400 mg PRN QHS PRN PO CONSTIPATION 11/02/20 11:30 11/19/20 04:49 Aspirin (Aspirin Chewable) 81 mg DAILY PO 11/03/20 09:00 11/19/20 07:56 Carbamazepine (TEGretol) 200 mg DAILY PO 11/03/20 09:00 11/19/20 07:59 Carbamazepine (TEGretol) 200 mg DAILYWSUP PO 11/02/20 17:00 11/19/20 17:20 Furosemide (Lasix) 40 mg DAILY PO 11/03/20 09:00 11/11/20 14:39 DC 11/11/20 08:46 Lorazepam (Ativan) 1 mg BID PO 11/02/20 21:00 11/15/20 19:36 DC 11/15/20 08:34 Melatonin (Melatonin) 3 mg HS PO 11/02/20 21:00 11/19/20 20:38 Oxycodone/ Acetaminophen (Percocet 7.5/ 325) 1 tab PRN DAILY PRN PO MOD-SEV PAIN 11/02/20 12:45 11/10/20 23:00 Potassium Chloride (Klor-Con) 20 meq BID PO 11/02/20 21:00 11/19/20 20:38 Prazosin HCl (Minipress) 2 mg QHS PO 11/02/20 21:00 11/19/20 20:37 Quetiapine Fumarate (SEROquel) 62.5 mg 0900,1300,1700 PO 11/02/20 13:00 11/19/20 17:20 Quetiapine Fumarate (SEROquel) 50 mg PRN DAILY PRN PO 3RD CHOICE FOR ANXIETY 11/02/20 12:45 Quetiapine Fumarate (SEROquel) 75 mg QHS PO 11/02/20 21:00 11/19/20 20:37 Sertraline HCl (Zoloft) 100 mg DAILY@1700 PO 11/02/20 17:00 11/09/20 17:12 DC 11/08/20 17:52 Trazodone HCl (Desyrel) 50 mg QHS PO 11/02/20 21:00 11/19/20 20:36 Multivitamins/ Calcium (Thera-M Plus) 1 tab DAILY PO 11/03/20 09:00 11/19/20 07:59 Pantoprazole Sodium (Protonix) 40 mg DAILYAC PO 11/03/20 07:30 11/19/20 07:56 Influenza Virus Vaccine Quadrival (Flulaval Quad [id number] Syringe) 0.5 ml ONCE ONCE VAX IM 11/03/20 09:00 11/03/20 09:01 DC 11/03/20 08:52 Sertraline HCl (Zoloft) 75 mg DAILY@1700 PO 11/09/20 18:15 11/19/20 17:20 Lorazepam (Ativan) 1 mg BID PO 11/15/20 20:00 11/19/20 20:39 I have reviewed the current psychotropics carefully including drug interactions. Risk benefit ratio favors no change other than as noted in my dictated progress note. Diagnosis: Problems: (1) Impulse control disorder, unspecified (2) Anxiety disorder, unspecified (3) Dementia, vascular, with delusions (4) Dementia in Alzheimer's disease with depression (5) Dementia in Alzheimer's disease with delusions (6) Dementia of the Alzheimer's type with early onset with behavioral disturbance (7) Major neurocognitive disorder (8) Dementia, vascular, with depression (9) PTSD (post-traumatic stress disorder) DUANE NINO MD Nov 19, 2020 21:46
[2020-11-19] MEDS: oxyCODONE/APAP 7.5/325 1 TAB TABLET PO PRN (22:00)
[2020-11-20] MEDS ORDERED: MAG-124 PO (01:08)
[2020-11-20] MEDS ORDERED: ACET325T9 PO (01:08)
[2020-11-20] MEDS ORDERED: MAGN24003 PO (01:09)
[2020-11-20] MEDS ORDERED: METH57CR17 TP (01:09)
[2020-11-20 06:24] VITALS: BP 127/69
[2020-11-20] MEDS: carBAMazepine 200 MG TABLET PO SCH ×2 (08:13→17:14)
[2020-11-20] MEDS: QUEtiapine 25 MG TABLET. PO SCH ×3 (08:14→17:15)
[2020-11-20] MEDS: POTASSIUM CHLORIDE 20 MEQ TABLET.ER. PO SCH ×2 (08:14→19:54)
[2020-11-20] MEDS: PANTOPRAZOLE 40 MG TABLET. PO SCH (08:14)
[2020-11-20] MEDS: ASPIRIN CHEWABLE 81 MG TABLET. PO SCH (08:14)
[2020-11-20] MEDS: LORazepam 1 MG TABLET PO SCH ×2 (08:14→19:55)
[2020-11-20] MEDS: MULTIVITAMIN with MINERAL TABLET. PO SCH (08:14)
--- NOTE | 2020-11-20 09:28 | PDOC ---
Exam Note: Raman Note: This note is a late entry for 11/18/2020 covers elements not covered in my initial note. Subjective: The patient was seen individually in the evening of 11/18/2020 with Almita MONTEMAYOR, discussed and reviewed the chart. The patient slept 5 hours previous night. Overall he remains confused but has not been aggressive. He does wander the unit, wanders into other patients rooms but redirects. Review of Systems: He is legally blind. No CV, , pulmonary, ENT system symptoms on review. Reliability poor. Mental Status Exam: The patient is oriented just to himself. Insight and judgment, recent and remote memory, attention and concentration, fund of knowledge is poor consistent with his diagnoses. Laboratory Data: Reviewed. Impression: Major neurocognitive disorder Alzheimer vascular with delusion, depression, and behavioral disturbance. Anxiety disorder unspecified. Impulse control disorder unspecified. PTSD. Plan: Continue current psychotropics mentioned in my initial note. Assessment: Vital Signs/I&O: Vital Signs Date Time Temp Pulse Resp B/P (MAP) Pulse Ox O2 Delivery O2 Flow Rate FiO2 11/20/20 06:24 97.2 77 18 127/69 (88) 98 11/19/20 15:37 Room Air I & O 11/19/20 11/19/20 11/20/20 15:00 23:00 07:00 Intake Total 720 ml 720 ml Balance 720 ml 720 ml Current Medications: Meds: Current Medications Medications (Trade) Dose Ordered Sig/Abundio Route PRN Reason Start Time Stop Time Status Last Admin Dose Admin Acetaminophen (Tylenol) 650 mg PRN Q6HRS PRN PO MILD PAIN / TEMP > 100.3'F 11/02/20 11:30 11/19/20 04:49 Multi-Ingredient Ointment (Analgesic [place]) 1 will PRN QID PRN TP MUSCLE PAIN 11/02/20 11:30 Al Hydroxide/Mg Hydroxide (Mylanta Plus Xs) 15 ml PRN AFTMEALHC PRN PO DYSPEPSIA 11/02/20 11:30 Magnesium Hydroxide (Milk Of Magnesia) 2,400 mg PRN QHS PRN PO CONSTIPATION 11/02/20 11:30 11/19/20 04:49 Aspirin (Aspirin Chewable) 81 mg DAILY PO 11/03/20 09:00 11/20/20 08:14 Carbamazepine (TEGretol) 200 mg DAILY PO 11/03/20 09:00 11/20/20 08:13 Carbamazepine (TEGretol) 200 mg DAILYWSUP PO 11/02/20 17:00 11/19/20 17:20 Furosemide (Lasix) 40 mg DAILY PO 11/03/20 09:00 11/11/20 14:39 DC 11/11/20 08:46 Lorazepam (Ativan) 1 mg BID PO 11/02/20 21:00 11/15/20 19:36 DC 11/15/20 08:34 Melatonin (Melatonin) 3 mg HS PO 11/02/20 21:00 11/19/20 20:38 Oxycodone/ Acetaminophen (Percocet 7.5/ 325) 1 tab PRN DAILY PRN PO MOD-SEV PAIN 11/02/20 12:45 11/19/20 22:00 Potassium Chloride (Klor-Con) 20 meq BID PO 11/02/20 21:00 11/20/20 08:14 Prazosin HCl (Minipress) 2 mg QHS PO 11/02/20 21:00 11/19/20 20:37 Quetiapine Fumarate (SEROquel) 62.5 mg 0900,1300,1700 PO 11/02/20 13:00 11/20/20 08:14 Quetiapine Fumarate (SEROquel) 50 mg PRN DAILY PRN PO 3RD CHOICE FOR ANXIETY 11/02/20 12:45 Quetiapine Fumarate (SEROquel) 75 mg QHS PO 11/02/20 21:00 11/19/20 20:37 Sertraline HCl (Zoloft) 100 mg DAILY@1700 PO 11/02/20 17:00 11/09/20 17:12 DC 11/08/20 17:52 Trazodone HCl (Desyrel) 50 mg QHS PO 11/02/20 21:00 11/19/20 20:36 Multivitamins/ Calcium (Thera-M Plus) 1 tab DAILY PO 11/03/20 09:00 11/20/20 08:14 Pantoprazole Sodium (Protonix) 40 mg DAILYAC PO 11/03/20 07:30 11/20/20 08:14 Influenza Virus Vaccine Quadrival (Flulaval Quad Syringe) 0.5 ml ONCE ONCE VAX IM 11/03/20 09:00 11/03/20 09:01 DC 11/03/20 08:52 Sertraline HCl (Zoloft) 75 mg DAILY@1700 PO 11/09/20 18:15 11/19/20 17:20 Lorazepam (Ativan) 1 mg BID PO 11/15/20 20:00 11/20/20 08:14 I have reviewed the current psychotropics carefully including drug interactions. Risk benefit ratio favors no change other than as noted in my dictated progress note. Diagnosis: Problems: (1) Impulse control disorder, unspecified (2) Anxiety disorder, unspecified (3) Dementia, vascular, with delusions (4) Dementia in Alzheimer's disease with depression (5) Dementia in Alzheimer's disease with delusions (6) Dementia of the Alzheimer's type with early onset with behavioral disturbance (7) Major neurocognitive disorder (8) Dementia, vascular, with depression (9) PTSD (post-traumatic stress disorder) DUANE NINO MD Nov 20, 2020 09:28
--- NOTE | 2020-11-20 09:48 | PDOC ---
Exam Note: Raman Note: This note is a late entry for 11/19/2020 covers elements not covered in my initial note. Subjective: The patient was reviewed at treatment team meeting individually in the morning on 11/19/2020 with Viola Dozier, Jennifer Zamora (social media marketing analyst), Maira, activity therapy and Bere MONTEMAYOR, discussed and reviewed the chart. The patient slept 6-1/2 hours previous night. Patients Heidy attended the treatment team meeting. He has been confused, calm, cooperative with cares. He has been fixated, wanting to make sure that the girls are taken care off. He has 2 daughters and 2 granddaughters per his . For 2 nights he had urinated on the floor. Appetite is 75%-100%. Sleeping average 7 hours. He has attended 3 groups in the past one week. Also discussed with Almita MONTEMAYOR in the evening. Review of Systems: He is legally blind. No CV, , pulmonary, ENT system symptoms on review. Reliability poor. Mental Status Exam: The patient is oriented just to himself. Insight and judgment, recent and remote memory, attention and concentration, fund of knowledge is poor consistent with his diagnoses. Laboratory Data: Reviewed. Impression: Major neurocognitive disorder Alzheimer vascular with delusion, depression, and behavioral disturbance. Anxiety disorder unspecified. Impulse control disorder unspecified. PTSD. Plan: Continue current psychotropics mentioned in my initial note. Possible transition back to the [facility] this Thursday. Assessment: Vital Signs/I&O: Vital Signs Date Time Temp Pulse Resp B/P (MAP) Pulse Ox O2 Delivery O2 Flow Rate FiO2 11/20/20 06:24 97.2 77 18 127/69 (88) 98 11/19/20 15:37 Room Air I & O 11/19/20 11/19/20 11/20/20 15:00 23:00 07:00 Intake Total 720 ml 720 ml Balance 720 ml 720 ml Current Medications: Meds: Current Medications Medications (Trade) Dose Ordered Sig/Abundio Route PRN Reason Start Time Stop Time Status Last Admin Dose Admin Acetaminophen (Tylenol) 650 mg PRN Q6HRS PRN PO MILD PAIN / TEMP > 100.3'F 11/02/20 11:30 11/19/20 04:49 Multi-Ingredient Ointment (Analgesic [place]) 1 will PRN QID PRN TP MUSCLE PAIN 11/02/20 11:30 Al Hydroxide/Mg Hydroxide (Mylanta Plus Xs) 15 ml PRN AFTMEALHC PRN PO DYSPEPSIA 11/02/20 11:30 Magnesium Hydroxide (Milk Of Magnesia) 2,400 mg PRN QHS PRN PO CONSTIPATION 11/02/20 11:30 11/19/20 04:49 Aspirin (Aspirin Chewable) 81 mg DAILY PO 11/03/20 09:00 11/20/20 08:14 Carbamazepine (TEGretol) 200 mg DAILY PO 11/03/20 09:00 11/20/20 08:13 Carbamazepine (TEGretol) 200 mg DAILYWSUP PO 11/02/20 17:00 11/19/20 17:20 Furosemide (Lasix) 40 mg DAILY PO 11/03/20 09:00 11/11/20 14:39 DC 11/11/20 08:46 Lorazepam (Ativan) 1 mg BID PO 11/02/20 21:00 11/15/20 19:36 DC 11/15/20 08:34 Melatonin (Melatonin) 3 mg HS PO 11/02/20 21:00 11/19/20 20:38 Oxycodone/ Acetaminophen (Percocet 7.5/ 325) 1 tab PRN DAILY PRN PO MOD-SEV PAIN 11/02/20 12:45 11/19/20 22:00 Potassium Chloride (Klor-Con) 20 meq BID PO 11/02/20 21:00 11/20/20 08:14 Prazosin HCl (Minipress) 2 mg QHS PO 11/02/20 21:00 11/19/20 20:37 Quetiapine Fumarate (SEROquel) 62.5 mg 0900,1300,1700 PO 11/02/20 13:00 11/20/20 08:14 Quetiapine Fumarate (SEROquel) 50 mg PRN DAILY PRN PO 3RD CHOICE FOR ANXIETY 11/02/20 12:45 Quetiapine Fumarate (SEROquel) 75 mg QHS PO 11/02/20 21:00 11/19/20 20:37 Sertraline HCl (Zoloft) 100 mg DAILY@1700 PO 11/02/20 17:00 11/09/20 17:12 DC 11/08/20 17:52 Trazodone HCl (Desyrel) 50 mg QHS PO 11/02/20 21:00 11/19/20 20:36 Multivitamins/ Calcium (Thera-M Plus) 1 tab DAILY PO 11/03/20 09:00 11/20/20 08:14 Pantoprazole Sodium (Protonix) 40 mg DAILYAC PO 11/03/20 07:30 11/20/20 08:14 Influenza Virus Vaccine Quadrival (Flulaval Quad Syringe) 0.5 ml ONCE ONCE VAX IM 11/03/20 09:00 11/03/20 09:01 DC 11/03/20 08:52 Sertraline HCl (Zoloft) 75 mg DAILY@1700 PO 11/09/20 18:15 11/19/20 17:20 Lorazepam (Ativan) 1 mg BID PO 11/15/20 20:00 11/20/20 08:14 I have reviewed the current psychotropics carefully including drug interactions. Risk benefit ratio favors no change other than as noted in my dictated progress note. Diagnosis: Problems: (1) Impulse control disorder, unspecified (2) Anxiety disorder, unspecified (3) Dementia, vascular, with delusions (4) Dementia in Alzheimer's disease with depression (5) Dementia in Alzheimer's disease with delusions (6) Dementia of the Alzheimer's type with early onset with behavioral disturbance (7) Major neurocognitive disorder (8) Dementia, vascular, with depression (9) PTSD (post-traumatic stress disorder) DUANE NINO MD Nov 20, 2020 09:48
[2020-11-20 16:28] VITALS: BP 112/62
[2020-11-20] MEDS: SERTRALINE 50 MG TABLET. PO SCH (17:15)
[2020-11-20] MEDS: PRAZOSIN 1 MG CAPSULE. PO SCH (19:53)
[2020-11-20] MEDS: traZODone 50 MG TABLET. PO SCH (19:54)
[2020-11-20] MEDS: QUEtiapine 50 MG TABLET. PO SCH (19:54)
[2020-11-20] MEDS: MELATONIN 3 MG TABLET PO SCH (19:54)
--- NOTE | 2020-11-20 21:55 | PDOC ---
Exam Note: Raman Note: Please also refer to the separate dictated note~for this date of service dictated separately.~Patient seen individually. Discussed the patient with Nursing staff reviewed the chart.~Reviewed interim history and current functioning. Reviewed vital signs,~Labs/ Radiology~and current medications noted below. Continue current treatment with the changes noted in the dictated addendum note Assessment: Vital Signs/I&O: Vital Signs Date Time Temp Pulse Resp B/P (MAP) Pulse Ox O2 Delivery O2 Flow Rate FiO2 11/20/20 19:53 62 112/62 11/20/20 16:28 98.2 15 98 11/19/20 15:37 Room Air I & O 11/19/20 11/19/20 11/20/20 15:00 23:00 07:00 Intake Total 720 ml 720 ml Balance 720 ml 720 ml Current Medications: Meds: Current Medications Medications (Trade) Dose Ordered Sig/Abundio Route PRN Reason Start Time Stop Time Status Last Admin Dose Admin Acetaminophen (Tylenol) 650 mg PRN Q6HRS PRN PO MILD PAIN / TEMP > 100.3'F 11/02/20 11:30 11/19/20 04:49 Multi-Ingredient Ointment (Analgesic [place]) 1 will PRN QID PRN TP MUSCLE PAIN 11/02/20 11:30 Al Hydroxide/Mg Hydroxide (Mylanta Plus Xs) 15 ml PRN AFTMEALHC PRN PO DYSPEPSIA 11/02/20 11:30 Magnesium Hydroxide (Milk Of Magnesia) 2,400 mg PRN QHS PRN PO CONSTIPATION 11/02/20 11:30 11/19/20 04:49 Aspirin (Aspirin Chewable) 81 mg DAILY PO 11/03/20 09:00 11/20/20 08:14 Carbamazepine (TEGretol) 200 mg DAILY PO 11/03/20 09:00 11/20/20 08:13 Carbamazepine (TEGretol) 200 mg DAILYWSUP PO 11/02/20 17:00 11/20/20 17:14 Furosemide (Lasix) 40 mg DAILY PO 11/03/20 09:00 11/11/20 14:39 DC 11/11/20 08:46 Lorazepam (Ativan) 1 mg BID PO 11/02/20 21:00 11/15/20 19:36 DC 11/15/20 08:34 Melatonin (Melatonin) 3 mg HS PO 11/02/20 21:00 11/20/20 19:54 Oxycodone/ Acetaminophen (Percocet 7.5/ 325) 1 tab PRN DAILY PRN PO MOD-SEV PAIN 11/02/20 12:45 11/19/20 22:00 Potassium Chloride (Klor-Con) 20 meq BID PO 11/02/20 21:00 11/20/20 19:54 Prazosin HCl (Minipress) 2 mg QHS PO 11/02/20 21:00 11/20/20 19:53 Quetiapine Fumarate (SEROquel) 62.5 mg 0900,1300,1700 PO 11/02/20 13:00 11/20/20 17:15 Quetiapine Fumarate (SEROquel) 50 mg PRN DAILY PRN PO 3RD CHOICE FOR ANXIETY 11/02/20 12:45 Quetiapine Fumarate (SEROquel) 75 mg QHS PO 11/02/20 21:00 11/20/20 19:54 Sertraline HCl (Zoloft) 100 mg DAILY@1700 PO 11/02/20 17:00 11/09/20 17:12 DC 11/08/20 17:52 Trazodone HCl (Desyrel) 50 mg QHS PO 11/02/20 21:00 11/20/20 19:54 Multivitamins/ Calcium (Thera-M Plus) 1 tab DAILY PO 11/03/20 09:00 11/20/20 08:14 Pantoprazole Sodium (Protonix) 40 mg DAILYAC PO 11/03/20 07:30 11/20/20 08:14 Influenza Virus Vaccine Quadrival (Flulaval Quad [id number] Syringe) 0.5 ml ONCE ONCE VAX IM 11/03/20 09:00 11/03/20 09:01 DC 11/03/20 08:52 Sertraline HCl (Zoloft) 75 mg DAILY@1700 PO 11/09/20 18:15 11/20/20 17:15 Lorazepam (Ativan) 1 mg BID PO 11/15/20 20:00 11/20/20 19:55 I have reviewed the current psychotropics carefully including drug interactions. Risk benefit ratio favors no change other than as noted in my dictated progress note. Diagnosis: Problems: (1) Impulse control disorder, unspecified (2) Anxiety disorder, unspecified (3) Dementia, vascular, with delusions (4) Dementia in Alzheimer's disease with depression (5) Dementia in Alzheimer's disease with delusions (6) Dementia of the Alzheimer's type with early onset with behavioral disturbance (7) Major neurocognitive disorder (8) Dementia, vascular, with depression (9) PTSD (post-traumatic stress disorder) DUANE NINO MD Nov 20, 2020 21:55
[2020-11-20] MEDS: oxyCODONE/APAP 7.5/325 1 TAB TABLET PO PRN (22:48)
[2020-11-21 06:04] VITALS: BP 113/75
[2020-11-21] MEDS: carBAMazepine 200 MG TABLET PO SCH (08:18)
[2020-11-21] MEDS: QUEtiapine 25 MG TABLET. PO SCH (08:19)
[2020-11-21] MEDS: MULTIVITAMIN with MINERAL TABLET. PO SCH (08:19)
[2020-11-21] MEDS: ASPIRIN CHEWABLE 81 MG TABLET. PO SCH (08:19)
[2020-11-21] MEDS: PANTOPRAZOLE 40 MG TABLET. PO SCH (08:19)
[2020-11-21] MEDS: LORazepam 1 MG TABLET PO SCH (08:19)
[2020-11-21] MEDS: POTASSIUM CHLORIDE 20 MEQ TABLET.ER. PO SCH (08:26)
--- NOTE | 2020-11-21 22:10 | PDOC ---
Exam Note: Raman Note: Please also refer to the separate dictated note~for this date of service dictated separately.~Patient seen individually. Discussed the patient with Nursing staff reviewed the chart.~Reviewed interim history and current functioning. Reviewed vital signs,~Labs/ Radiology~and current medications noted below. Continue current treatment with the changes noted in the dictated addendum note Assessment: Vital Signs/I&O: Vital Signs Date Time Temp Pulse Resp B/P (MAP) Pulse Ox O2 Delivery O2 Flow Rate FiO2 11/21/20 06:04 97.8 76 18 113/75 (88) 96 11/19/20 15:37 Room Air I & O 11/20/20 11/20/20 11/21/20 15:00 23:00 07:00 Intake Total 480 ml 480 ml Balance 480 ml 480 ml Current Medications: Meds: Current Medications Medications (Trade) Dose Ordered Sig/Abundio Route PRN Reason Start Time Stop Time Status Last Admin Dose Admin Acetaminophen (Tylenol) 650 mg PRN Q6HRS PRN PO MILD PAIN / TEMP > 100.3'F 11/02/20 11:30 11/21/20 11:11 DC 11/19/20 04:49 Multi-Ingredient Ointment (Analgesic [place]) 1 will PRN QID PRN TP MUSCLE PAIN 11/02/20 11:30 11/21/20 11:11 DC Al Hydroxide/Mg Hydroxide (Mylanta Plus Xs) 15 ml PRN AFTMEALHC PRN PO DYSPEPSIA 11/02/20 11:30 11/21/20 11:11 DC Magnesium Hydroxide (Milk Of Magnesia) 2,400 mg PRN QHS PRN PO CONSTIPATION 11/02/20 11:30 11/21/20 11:11 DC 11/19/20 04:49 Aspirin (Aspirin Chewable) 81 mg DAILY PO 11/03/20 09:00 11/21/20 11:11 DC 11/21/20 08:19 Carbamazepine (TEGretol) 200 mg DAILY PO 11/03/20 09:00 11/21/20 11:11 DC 11/21/20 08:18 Carbamazepine (TEGretol) 200 mg DAILYWSUP PO 11/02/20 17:00 11/21/20 11:11 DC 11/20/20 17:14 Furosemide (Lasix) 40 mg DAILY PO 11/03/20 09:00 11/11/20 14:39 DC 11/11/20 08:46 Lorazepam (Ativan) 1 mg BID PO 11/02/20 21:00 11/15/20 19:36 DC 11/15/20 08:34 Melatonin (Melatonin) 3 mg HS PO 11/02/20 21:00 11/21/20 11:11 DC 11/20/20 19:54 Oxycodone/ Acetaminophen (Percocet 7.5/ 325) 1 tab PRN DAILY PRN PO MOD-SEV PAIN 11/02/20 12:45 11/21/20 11:11 DC 11/20/20 22:48 Potassium Chloride (Klor-Con) 20 meq BID PO 11/02/20 21:00 11/21/20 11:11 DC 11/21/20 08:26 Prazosin HCl (Minipress) 2 mg QHS PO 11/02/20 21:00 11/21/20 11:11 DC 11/20/20 19:53 Quetiapine Fumarate (SEROquel) 62.5 mg 0900,1300,1700 PO 11/02/20 13:00 11/21/20 11:11 DC 11/21/20 08:19 Quetiapine Fumarate (SEROquel) 50 mg PRN DAILY PRN PO 3RD CHOICE FOR ANXIETY 11/02/20 12:45 11/21/20 11:11 DC Quetiapine Fumarate (SEROquel) 75 mg QHS PO 11/02/20 21:00 11/21/20 11:11 DC 11/20/20 19:54 Sertraline HCl (Zoloft) 100 mg DAILY@1700 PO 11/02/20 17:00 11/09/20 17:12 DC 11/08/20 17:52 Trazodone HCl (Desyrel) 50 mg QHS PO 11/02/20 21:00 11/21/20 11:11 DC 11/20/20 19:54 Multivitamins/ Calcium (Thera-M Plus) 1 tab DAILY PO 11/03/20 09:00 11/21/20 11:11 DC 11/21/20 08:19 Pantoprazole Sodium (Protonix) 40 mg DAILYAC PO 11/03/20 07:30 11/21/20 11:11 DC 11/21/20 08:19 Influenza Virus Vaccine Quadrival (Flulaval Quad Syringe) 0.5 ml ONCE ONCE VAX IM 11/03/20 09:00 11/03/20 09:01 DC 11/03/20 08:52 Sertraline HCl (Zoloft) 75 mg DAILY@1700 PO 11/09/20 18:15 11/21/20 11:11 DC 11/20/20 17:15 Lorazepam (Ativan) 1 mg BID PO 11/15/20 20:00 11/21/20 11:11 DC 11/21/20 08:19 I have reviewed the current psychotropics carefully including drug interactions. Risk benefit ratio favors no change other than as noted in my dictated progress note. Diagnosis: Problems: (1) Impulse control disorder, unspecified (2) Anxiety disorder, unspecified (3) Dementia, vascular, with delusions (4) Dementia in Alzheimer's disease with depression (5) Dementia in Alzheimer's disease with delusions (6) Dementia of the Alzheimer's type with early onset with behavioral disturbance (7) Major neurocognitive disorder (8) Dementia, vascular, with depression (9) PTSD (post-traumatic stress disorder) DUANE NINO MD Nov 21, 2020 22:10
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
--- NOTE | 2020-11-22 08:10 | PDOC ---
Exam Note: Raman Note: This note is a late entry for 11/20/2020 covers elements not covered in my initial note. Subjective: The patient was seen individually in the evening of 11/20/2020 with Bere MONTEMAYOR, discussed and reviewed the chart. The patient slept 3-1/4 hours previous night. He has been confused, but pleasant, redirectable. I met with him in the hallway. Review of Systems: He is legally blind. No CV, , pulmonary, ENT system symptoms on review. Reliability poor. Mental Status Exam: The patient is oriented just to himself. Insight and judgment, recent and remote memory, attention and concentration, fund of knowledge is poor consistent with his diagnoses. Laboratory Data: Reviewed. Impression: Major neurocognitive disorder Alzheimer vascular with delusion, depression, and behavioral disturbance. Anxiety disorder unspecified. Impulse control disorder unspecified. PTSD. Plan: [facility]. Assessment: Vital Signs/I&O: Vital Signs Date Time Temp Pulse Resp B/P (MAP) Pulse Ox O2 Delivery O2 Flow Rate FiO2 11/21/20 06:04 97.8 76 18 113/75 (88) 96 11/19/20 15:37 Room Air I & O 11/21/20 11/21/20 11/22/20 15:00 23:00 07:00 Intake Total 380 ml Balance 380 ml Current Medications: Meds: Current Medications Medications (Trade) Dose Ordered Sig/Abundio Route PRN Reason Start Time Stop Time Status Last Admin Dose Admin Acetaminophen (Tylenol) 650 mg PRN Q6HRS PRN PO MILD PAIN / TEMP > 100.3'F 11/02/20 11:30 11/21/20 11:11 DC 11/19/20 04:49 Multi-Ingredient Ointment (Analgesic [place]) 1 will PRN QID PRN TP MUSCLE PAIN 11/02/20 11:30 11/21/20 11:11 DC Al Hydroxide/Mg Hydroxide (Mylanta Plus Xs) 15 ml PRN AFTMEALHC PRN PO DYSPEPSIA 11/02/20 11:30 11/21/20 11:11 DC Magnesium Hydroxide (Milk Of Magnesia) 2,400 mg PRN QHS PRN PO CONSTIPATION 11/02/20 11:30 11/21/20 11:11 DC 11/19/20 04:49 Aspirin (Aspirin Chewable) 81 mg DAILY PO 11/03/20 09:00 11/21/20 11:11 DC 11/21/20 08:19 Carbamazepine (TEGretol) 200 mg DAILY PO 11/03/20 09:00 11/21/20 11:11 DC 11/21/20 08:18 Carbamazepine (TEGretol) 200 mg DAILYWSUP PO 11/02/20 17:00 11/21/20 11:11 DC 11/20/20 17:14 Furosemide (Lasix) 40 mg DAILY PO 11/03/20 09:00 11/11/20 14:39 DC 11/11/20 08:46 Lorazepam (Ativan) 1 mg BID PO 11/02/20 21:00 11/15/20 19:36 DC 11/15/20 08:34 Melatonin (Melatonin) 3 mg HS PO 11/02/20 21:00 11/21/20 11:11 PR 11/20/20 19:54 Oxycodone/ Acetaminophen (Percocet 7.5/ 325) 1 tab PRN DAILY PRN PO MOD-SEV PAIN 11/02/20 12:45 11/21/20 11:11 PR 11/20/20 22:48 Potassium Chloride (Klor-Con) 20 meq BID PO 11/02/20 21:00 11/21/20 11:11 DC 11/21/20 08:26 Prazosin HCl (Minipress) 2 mg QHS PO 11/02/20 21:00 11/21/20 11:11 PR 11/20/20 19:53 Quetiapine Fumarate (SEROquel) 62.5 mg 0900,1300,1700 PO 11/02/20 13:00 11/21/20 11:11 PR 11/21/20 08:19 Quetiapine Fumarate (SEROquel) 50 mg PRN DAILY PRN PO 3RD CHOICE FOR ANXIETY 11/02/20 12:45 11/21/20 11:11 DC Quetiapine Fumarate (SEROquel) 75 mg QHS PO 11/02/20 21:00 11/21/20 11:11 PR 11/20/20 19:54 Sertraline HCl (Zoloft) 100 mg DAILY@1700 PO 11/02/20 17:00 11/09/20 17:12 DC 11/08/20 17:52 Trazodone HCl (Desyrel) 50 mg QHS PO 11/02/20 21:00 11/21/20 11:11 DC 11/20/20 19:54 Multivitamins/ Calcium (Thera-M Plus) 1 tab DAILY PO 11/03/20 09:00 11/21/20 11:11 DC 11/21/20 08:19 Pantoprazole Sodium (Protonix) 40 mg DAILYAC PO 11/03/20 07:30 11/21/20 11:11 DC 11/21/20 08:19 Influenza Virus Vaccine Quadrival (Flulaval Quad [id number] Syringe) 0.5 ml ONCE ONCE VAX IM 11/03/20 09:00 11/03/20 09:01 DC 11/03/20 08:52 Sertraline HCl (Zoloft) 75 mg DAILY@1700 PO 11/09/20 18:15 11/21/20 11:11 DC 11/20/20 17:15 Lorazepam (Ativan) 1 mg BID PO 11/15/20 20:00 11/21/20 11:11 DC 11/21/20 08:19 I have reviewed the current psychotropics carefully including drug interactions. Risk benefit ratio favors no change other than as noted in my dictated progress note. Diagnosis: Problems: (1) Impulse control disorder, unspecified (2) Anxiety disorder, unspecified (3) Dementia, vascular, with delusions (4) Dementia in Alzheimer's disease with depression (5) Dementia in Alzheimer's disease with delusions (6) Dementia of the Alzheimer's type with early onset with behavioral disturbance (7) Major neurocognitive disorder (8) Dementia, vascular, with depression (9) PTSD (post-traumatic stress disorder) DUANE NINO MD Nov 22, 2020 08:10
== END 2020-11-21 11:00 | DRG 57 ==
LOC: GEROPSY 10:43
PROVIDERS: ADMIT Psychiatry & Neurology Psychiatry; ATTEND Psychiatry & Neurology Psychiatry
DX: G30.9 Alzheimer's disease, unspecified (principal); F01.51 Vascular dementia, unspecified severity, with behavioral disturbance; F02.81 Dementia in other diseases classified elsewhere, unspecified severity, with behavioral disturbance; Z66 Do not resuscitate; F32.9 Major depressive disorder, single episode, unspecified; F43.10 Post-traumatic stress disorder, unspecified; F63.9 Impulse disorder, unspecified; H54.8 Legal blindness, as defined in USA; M17.10 Unilateral primary osteoarthritis, unspecified knee; N40.0 Benign prostatic hyperplasia without lower urinary tract symptoms; Z79.899 Other long term (current) drug therapy
CPT/HCPCS: 36415; 80053; 80061; 80156; 81001; 82306; 82607; 83036; 83540; 83550; 83735; 84439; 84443; 84480; 85025; 85379; 86592; 90471; 90686; 93005; G0378; G0379; 97530

== ENCOUNTER 2021-06-13 03:01 | Inpatient (IN) | payer OTHER ==
[~2021-06-13] VITALS: Ht 172.7 cm; Wt 84.2 kg
[~2021-06-13 03:01] MED LIST changes: +ACET325T9 PO; +POTA-112 PO; -POTA10TA5 PO
[2021-06-13] MEDS ORDERED: BISA10EN RC (05:42)
[2021-06-13] MEDS ORDERED: DIVA250T PO (05:42)
[2021-06-13] MEDS ORDERED: DOCU100T5 PO (05:42)
[2021-06-13] MEDS ORDERED: CARB15DR3 OP (05:42)
[2021-06-13] MEDS ORDERED: DICL20GE TP (05:42)
[2021-06-13] MEDS ORDERED: LISI10TA16 PO (05:42)
[2021-06-13] MEDS ORDERED: LIDO700A21 TP (05:42)
[2021-06-13] MEDS ORDERED: FURO-69 PO (05:42)
[2021-06-13] MEDS ORDERED: LOPE2TAB27 PO (05:42)
[2021-06-13] MEDS ORDERED: METHYL SALICYLATE/MENTHOL TOPICAL OINTMENT 57GM TUBE. TP PRN (11:00)
[2021-06-13] MEDS ORDERED: MAG HYDROX/AL HYDROX/SIMETH 30 ML ORAL.SUSP PO PRN ×2 (11:00→12:45)
[2021-06-13] MEDS ORDERED: ACETAMINOPHEN 325 MG TABLET PO PRN (11:00)
[2021-06-13] MEDS ORDERED: MAGNESIUM HYDROXIDE 2,400 MG/30 ML ORAL.SUSP. PO PRN ×2 (11:00→13:15)
[2021-06-13 11:33] LABS: BASO % 1 % (0-3); EOS # 0.2 x10^3/uL (0.0-0.7); EOS % 7 % (0-3); HEMATOCRIT 36.4 % (39.0-53.0); HEMOGLOBIN 12.1 g/dL (13.0-17.5); LYMPH # 0.9 x10^3/uL (1.0-4.8); LYMPH % 30 % (24-48); MEAN CORPUSCULAR HEMOGLOBIN 29 pg (25-35); MEAN CORPUSCULAR HGB CONC 33 g/dL (31-37); MEAN CORPUSCULAR VOLUME 88 fL (79-100); MONO # 0.6 x10^3/uL (0.0-1.1); MONO % 21 % (0-9); NEUT # 1.2 x10^3uL (1.8-7.7); NEUT % 41 % (31-73); PLATELET COUNT 112 x10^3/uL (140-400); RED BLOOD COUNT 4.15 x10^6/uL (4.30-5.70); RED CELL DISTRIBUTION WIDTH 14.2 % (11.5-14.5)
[2021-06-13 11:42] LABS: ALBUMIN 3.4 g/dL (3.4-5.0); ALBUMIN/GLOBULIN RATIO 1.1 (1.0-1.7); ALK PHOS 58 U/L (46-116); ALT (SGPT) 29 U/L (16-63); ANION GAP 7 (6-14); AST (SGOT) 21 U/L (15-37); BLOOD UREA NITROGEN 33 mg/dL (8-26); BUN/CREATININE RATIO 24 (6-20); CALCIUM 8.4 mg/dL (8.5-10.1); CARBON DIOXIDE 27 mmol/L (21-32); CHLORIDE 106 mmol/L (98-107); CREATININE 1.4 mg/dL (0.7-1.3); GLUCOSE 96 mg/dL (70-99); POTASSIUM 3.8 mmol/L (3.5-5.1); SODIUM 140 mmol/L (136-145); TOTAL BILIRUBIN 0.5 mg/dL (0.2-1.0); TOTAL PROTEIN 6.6 g/dL (6.4-8.2)
[2021-06-13 11:45] LABS: VAL ACID 15 mcg/mL (50-100)
[2021-06-13] MEDS ORDERED: BISACODYL 10 MG/30 ML ENEMA RC PRN (12:45)
[2021-06-13] MEDS ORDERED: LIDOCAINE (700MG/PATCH) PATCH. TP PRN (12:45)
[2021-06-13] MEDS ORDERED: QUEtiapine 50 MG TABLET. PO PRN (12:45)
[2021-06-13] MEDS ORDERED: MENTHOL TP PRN (12:45)
[2021-06-13] MEDS ORDERED: METHYL SALICYLATE TP PRN (12:45)
[2021-06-13] MEDS ORDERED: LOPERAMIDE 2 MG CAPSULE PO PRN (13:15)
[2021-06-13] MEDS ORDERED: POLYVINYL ALCOHOL 1.4% OPHTH SOLUTION 15ML BOTTLE. OU PRN (13:30)
[2021-06-13 14:01] VITALS: BP 111/71
[2021-06-13 15:42] VITALS: BP 107/70
[2021-06-13] MEDS: QUEtiapine 100 MG TABLET. PO SCH ×2 (17:17→20:39)
[2021-06-13] MEDS: DIVALPROEX ER 250 MG TAB.ER.24H. PO SCH ×2 (17:18→20:39)
[2021-06-13] MEDS: DOCUSATE SODIUM 100 MG CAPSULE PO SCH (20:39)
[2021-06-13 21:03] LABS: CHOLESTEROL/HDL RATIO 2.6; THYROID STIM HORMONE (TSH) 2.81 uIU/mL (0.358-3.740)
--- NOTE | 2021-06-13 22:08 | PDOC ---
Exam Note: Raman Note: Please also refer to the separate dictated note~for this date of service dictated separately.~Patient seen individually. Discussed the patient with Nursing staff reviewed the chart.~Reviewed interim history and current functioning. Reviewed vital signs,~Labs/ Radiology~and current medications noted below. Continue current treatment with the changes noted in the dictated addendum note Assessment: Vital Signs/I&O: Vital Signs Date Time Temp Pulse Resp B/P (MAP) Pulse Ox O2 Delivery O2 Flow Rate FiO2 06/13/21 15:42 98.0 68 18 107/70 (82) 98 Labs: Laboratory Tests Test 06/13/21 11:15 White Blood Count 3.0 x10^3/uL (4.0-11.0) L Red Blood Count 4.15 x10^6/uL (4.30-5.70) L Hemoglobin 12.1 g/dL (13.0-17.5) L Hematocrit 36.4 % (39.0-53.0) L Mean Corpuscular Volume 88 fL (79-100) Mean Corpuscular Hemoglobin 29 pg (25-35) Mean Corpuscular Hemoglobin Concent 33 g/dL (31-37) Red Cell Distribution Width 14.2 % (11.5-14.5) Platelet Count 112 x10^3/uL (140-400) L Neutrophils (%) (Auto) 41 % (31-73) Lymphocytes (%) (Auto) 30 % (24-48) Monocytes (%) (Auto) 21 % (0-9) H Eosinophils (%) (Auto) 7 % (0-3) H Basophils (%) (Auto) 1 % (0-3) Neutrophils # (Auto) 1.2 x10^3uL (1.8-7.7) L Lymphocytes # (Auto) 0.9 x10^3/uL (1.0-4.8) L Monocytes # (Auto) 0.6 x10^3/uL (0.0-1.1) Eosinophils # (Auto) 0.2 x10^3/uL (0.0-0.7) Basophils # (Auto) 0.0 x10^3/uL (0.0-0.2) D-Dimer (Brenda) 2.10 mg/L (0.00-0.50) H Sodium Level 140 mmol/L (136-145) Potassium Level 3.8 mmol/L (3.5-5.1) Chloride Level 106 mmol/L (98-107) Carbon Dioxide Level 27 mmol/L (21-32) Anion Gap 7 (6-14) Blood Urea Nitrogen 33 mg/dL (8-26) H Creatinine 1.4 mg/dL (0.7-1.3) H Estimated GFR (Cockcroft-Gault) 49.0 BUN/Creatinine Ratio 24 (6-20) H Glucose Level 96 mg/dL (70-99) Calcium Level 8.4 mg/dL (8.5-10.1) L Magnesium Level 2.0 mg/dL (1.8-2.4) Iron Level 36 ug/dL (65-175) L Total Iron Binding Capacity 188 ug/dL (250-450) L Iron Saturation 19 % (15-34) Total Bilirubin 0.5 mg/dL (0.2-1.0) Aspartate Amino Transferase (AST) 21 U/L (15-37) Alanine Aminotransferase (ALT) 29 U/L (16-63) Alkaline Phosphatase 58 U/L (46-116) Total Protein 6.6 g/dL (6.4-8.2) Albumin 3.4 g/dL (3.4-5.0) Albumin/Globulin Ratio 1.1 (1.0-1.7) Triglycerides Level 58 mg/dL (0-150) Cholesterol Level 111 mg/dL (0-200) LDL Cholesterol, Calculated 56 mg/dL (0-100) VLDL Cholesterol, Calculated 12 mg/dL (0-40) Non-HDL Cholesterol Calculated 68 mg/dL (0-129) HDL Cholesterol 43 mg/dL (40-60) Cholesterol/HDL Ratio 2.6 25-Hydroxy Vitamin D Total 16.7 ng/mL (30-100) L Thyroid Stimulating Hormone (TSH) 2.810 uIU/mL (0.358-3.740) Valproic Acid Level 15 mcg/mL (50-100) L Valproic Acid Last Dose Date 06/13/21 Valproic Acid Last Dose Time 0800 Treponema pallidum Antibody Nonreactive (Nonreactive) Current Medications: Meds: Laboratory Tests Test 06/13/21 11:15 White Blood Count 3.0 x10^3/uL Red Blood Count 4.15 x10^6/uL Hemoglobin 12.1 g/dL Hematocrit 36.4 % Mean Corpuscular Volume 88 fL Mean Corpuscular Hemoglobin 29 pg Mean Corpuscular Hemoglobin Concent 33 g/dL Red Cell Distribution Width 14.2 % Platelet Count 112 x10^3/uL Neutrophils (%) (Auto) 41 % Lymphocytes (%) (Auto) 30 % Monocytes (%) (Auto) 21 % Eosinophils (%) (Auto) 7 % Basophils (%) (Auto) 1 % Neutrophils # (Auto) 1.2 x10^3uL Lymphocytes # (Auto) 0.9 x10^3/uL Monocytes # (Auto) 0.6 x10^3/uL Eosinophils # (Auto) 0.2 x10^3/uL Basophils # (Auto) 0.0 x10^3/uL D-Dimer (Brenda) 2.10 mg/L Sodium Level 140 mmol/L Potassium Level 3.8 mmol/L Chloride Level 106 mmol/L Carbon Dioxide Level 27 mmol/L Anion Gap 7 Blood Urea Nitrogen 33 mg/dL Creatinine 1.4 mg/dL Estimated GFR (Cockcroft-Gault) 49.0 BUN/Creatinine Ratio 24 Glucose Level 96 mg/dL Calcium Level 8.4 mg/dL Magnesium Level 2.0 mg/dL Iron Level 36 ug/dL Total Iron Binding Capacity 188 ug/dL Iron Saturation 19 % Total Bilirubin 0.5 mg/dL Aspartate Amino Transf (AST/SGOT) 21 U/L Alanine Aminotransferase (ALT/SGPT) 29 U/L Alkaline Phosphatase 58 U/L Total Protein 6.6 g/dL Albumin 3.4 g/dL Albumin/Globulin Ratio 1.1 Triglycerides Level 58 mg/dL Cholesterol Level 111 mg/dL LDL Cholesterol, Calculated 56 mg/dL VLDL Cholesterol, Calculated 12 mg/dL Non-HDL Cholesterol Calculated 68 mg/dL HDL Cholesterol 43 mg/dL Cholesterol/HDL Ratio 2.6 25-Hydroxy Vitamin D Total 16.7 ng/mL Thyroid Stimulating Hormone (TSH) 2.810 uIU/mL Valproic Acid (Depakene) Level 15 mcg/mL Valproic Acid Last Dose Date 06/13/21 Valproic Acid Last Dose Time 0800 Treponema pallidum Antibody Nonreactive Current Medications Medications (Trade) Dose Ordered Sig/Abundio Route PRN Reason Start Time Stop Time Status Last Admin Dose Admin Acetaminophen (Tylenol) 650 mg PRN Q6HRS PRN PO MILD PAIN / TEMP > 100.3'F 06/13/21 11:00 06/13/21 11:08 DC Multi-Ingredient Ointment (Analgesic [place]) 1 will PRN QID PRN TP MUSCLE PAIN 06/13/21 11:00 Al Hydroxide/Mg Hydroxide (Mylanta Plus Xs) 15 ml PRN AFTMEALHC PRN PO DYSPEPSIA 06/13/21 11:00 06/13/21 11:08 DC Magnesium Hydroxide (Milk Of Magnesia) 2,400 mg PRN QHS PRN PO CONSTIPATION 06/13/21 11:00 06/13/21 11:08 DC Acetaminophen (Tylenol) 650 mg PRN Q6HRS PRN PO MILD PAIN / TEMP > 100.3'F 06/13/21 12:45 Bisacodyl (Fleet Bisacodyl) 10 mg PRN DAILY PRN RC CONSTIPATION 06/13/21 12:45 Diclofenac Sodium (Voltaren) 1 will PRN BID PRN TP PAIN 06/13/21 12:45 Divalproex Sodium (Depakote Er) 250 mg TID PO 06/13/21 14:00 06/13/21 20:39 Furosemide (Lasix) 20 mg DAILY PO 06/14/21 09:00 Lidocaine (Lidoderm) 1 patch PRN DAILY PRN TP PAIN 06/13/21 12:45 Lisinopril (Prinivil) 10 mg DAILY PO 06/14/21 09:00 Al Hydroxide/Mg Hydroxide (Mylanta Plus Xs) 15 ml PRN AFTMEALHC PRN PO DYSPEPSIA 06/13/21 12:45 Potassium Chloride (Klor-Con) 20 meq DAILY PO 06/14/21 09:00 Prazosin HCl (Minipress) 3 mg DAILY PO 06/14/21 09:00 Quetiapine Fumarate (SEROquel) 100 mg 0900,1400 PO 06/13/21 14:00 06/13/21 17:17 Quetiapine Fumarate (SEROquel) 1,250 mg PRN Q8HRS PRN PO 3RD CHOICE FOR ANXIETY 06/13/21 12:45 06/13/21 13:24 DC Quetiapine Fumarate (SEROquel) 200 mg QHS PO 06/13/21 21:00 06/13/21 20:39 Artificial Tears (Artificial Tears) 1 drop PRN DAILY PRN OU DRY EYE 06/13/21 13:30 Docusate Sodium (Colace) 100 mg BID PO 06/13/21 21:00 06/13/21 20:39 Loperamide HCl (Imodium) 2 mg PRN QID PRN PO DIARRHEA 06/13/21 13:15 Magnesium Hydroxide (Milk Of Magnesia) 2,400 mg PRN QHS PRN PO CONSTIPATION 06/13/21 13:15 Non-Formulary Medication (Methyl Salicylate/ Menthol ([place] Greaseless Cream)) 1 will PRN QID PRN TP MUSCLE PAIN 06/13/21 12:45 UNV Quetiapine Fumarate (SEROquel) 25 mg PRN Q8HRS PRN PO 3RD CHOICE FOR ANXIETY 06/13/21 14:00 Current Medications Medications (Trade) Dose Ordered Sig/Abundio Route PRN Reason Start Time Stop Time Status Last Admin Dose Admin Divalproex Sodium (Depakote Er) 250 mg TID PO 06/13/21 14:00 06/13/21 20:39 Quetiapine Fumarate (SEROquel) 100 mg 0900,1400 PO 06/13/21 14:00 06/13/21 17:17 Quetiapine Fumarate (SEROquel) 200 mg QHS PO 06/13/21 21:00 06/13/21 20:39 Docusate Sodium (Colace) 100 mg BID PO 06/13/21 21:00 06/13/21 20:39 I have reviewed the current psychotropics carefully including drug interactions. Risk benefit ratio favors no change other than as noted in my dictated progress note. Diagnosis: Problems: (1) Impulse control disorder, unspecified (2) Anxiety disorder, unspecified (3) Dementia, vascular, with delusions (4) Dementia in Alzheimer's disease with depression (5) Dementia in Alzheimer's disease with delusions (6) Dementia of the Alzheimer's type with early onset with behavioral disturbance (7) Major neurocognitive disorder (8) Dementia, vascular, with depression DUANE NINO MD Jun 13, 2021 22:08
[2021-06-13 22:10] LABS: THYROXINE 4.5 ug/dL (4.5-12.0)
--- NOTE | 2021-06-13 22:44 | HP ---
DATE OF SERVICE: 06/13/2021 ADMIT DATE: 06/13/2021 IDENTIFYING DATA: The patient is a 80-year-old male referred to us by his primary care physician at [facility] in [place], [place] on account of worsening confusion within the context of his diagnosis of major neurocognitive disorder, Alzheimer, vascular with delusion, depression; anxiety disorder and impulse control disorder. The patient has been intrusive, agitated, aggressive with staff, refusing medications, having frequent falls, hitting peers. Her behaviors have been deemed dangerous, unmanageable at the facility, having failed outpatient psychiatric interventions. He is referred back to us once again for inpatient psychiatric stabilization as coordinated and approved by the [facility] since he is 100% service connected. CHIEF COMPLAINT: "Did you talk to Heidy." The patient's is Heidy, who is his DPOA and agreed to this hospitalization and the patient seems to have a recognition for her. Other than that, he is totally confused as I met with him this evening. He was neatly dressed with a hat in place. HISTORY OF PRESENT ILLNESS: The patient has a history of dementia, Alzheimer's, vascular type. He has been increasingly agitated, aggressive with marked mood swings. He has had a couple of psychiatric hospitalizations in the recent past with us and at other facilities as well. Most recently, he was admitted to [facility] and has been agitated, aggressive, disruptive, unmanageable at the facility with sleep and appetite changes, frequent falls and hitting peers. No suicidal or homicidal ideation. PAST PSYCHIATRIC HISTORY: As above. MEDICAL HISTORY: Macular degeneration, hard of hearing, chronic constipation, benign prostatic hypertrophy, hypertension, frequent falls, PTSD, neuropathy, status post CVA. CODE STATUS: DNR. ALLERGIES: Negative. ACCU-CHEKS: None. DIET: Mechanical soft. Takes medications crushed. Ambulates independently. UA is awaited. CURRENT PSYCHOTROPICS: Depakote 250 mg t.i.d., prazosin 3 mg daily, Seroquel 100 mg at 0900, 1400 and 200 mg at bedtime plus Seroquel p.r.n. FAMILY HISTORY: Noncontributory. SOCIAL HISTORY: No alcohol, drug abuse, physical, sexual, elder abuse history is noted. He is not known to be a perpetrator. He has 100% service connected due to his diagnosis of PTSD. REVIEW OF SYSTEMS: No CV, , pulmonary, eye, ENT system symptoms on review. Ambulation little unsteady at times. MENTAL STATUS EXAM: The patient was seen individually on evening of 06/13 in the hallway outside his room. He is dressed in casual clothing with a hat in place, somewhat anxious, repetitively asking about his Heidy. Insight, judgment, recent and remote memory, attention, concentration, fund of knowledge poor consistent with his diagnosis. IMPRESSION: Major neurocognitive disorder, Alzheimer, vascular with delusion, depression, behavioral disturbance, anxiety disorder, unspecified; impulse control disorder, unspecified. Rest as above. PLAN: Admit to Geropsychiatry unit at [facility]. I will see the patient daily individually from a psychiatric standpoint, medical followup, Dr. Pappas/Dr. Weber. Continue the patient on his current psychotropics. Consider increasing the prazosin and changing it to the nighttime and consider changing Depakote to gabapentin for his anxiety, mood lability. Also, consider using Luvox to help with some of his obsessiveness, anxiety symptoms. ESTIMATED LENGTH OF STAY: 10-12 days. DISPOSITION PLANS: Back to half-way when stable. DUKE DR: ABBE/essence TID: [id number]
[2021-06-13 23:15] LABS: BACTERIA,URINE 0 /HPF (0-FEW); CLARITY,URINE CLEAR; COLOR,URINE YELLOW; GLUCOSE,URINE NEG (NEG); NITRITE,URINE NEG (NEG); RBC,URINE 0 /HPF (0-2); SQUAMOUS EPITHELIAL CELL,UR OCC /LPF; WBC,URINE RARE /HPF (0-4)
[2021-06-14] MEDS: DICLOFENAC SODIUM 1% TOPICAL GEL 100GM TUBE. TP PRN (02:04)
[2021-06-14] MEDS: ACETAMINOPHEN 325 MG TABLET PO PRN ×2 (02:05→20:22)
[2021-06-14 02:07] LABS: HEMOGLOBIN A1C 5.7 % (4.8-5.6)
[2021-06-14 07:02] VITALS: BP 125/75
[2021-06-14] MEDS: DIVALPROEX ER 250 MG TAB.ER.24H. PO SCH (09:00)
[2021-06-14] MEDS: FUROSEMIDE 20 MG TABLET PO SCH (09:49)
[2021-06-14] MEDS: DOCUSATE SODIUM 100 MG CAPSULE PO SCH ×2 (09:49→20:22)
[2021-06-14] MEDS: POTASSIUM CHLORIDE 20 MEQ TABLET.ER. PO SCH (09:50)
[2021-06-14] MEDS: LISINOPRIL 10 MG TABLET PO SCH (09:50)
[2021-06-14] MEDS: PRAZOSIN 1 MG CAPSULE. PO SCH (09:50)
[2021-06-14] MEDS: QUEtiapine 100 MG TABLET. PO SCH ×3 (09:50→20:22)
[2021-06-14] MEDS: DIVALPROEX 125 MG CAP.SPRINK PO SCH ×2 (13:57→20:22)
[2021-06-14 17:22] VITALS: BP 95/50
--- NOTE | 2021-06-14 21:38 | PDOC ---
Exam Note: Raman Note: Please also refer to the separate dictated note~for this date of service dictated separately.~Patient seen individually. Discussed the patient with Nursing staff reviewed the chart.~Reviewed interim history and current functioning. Reviewed vital signs,~Labs/ Radiology~and current medications noted below. Continue current treatment with the changes noted in the dictated addendum note Assessment: Vital Signs/I&O: Vital Signs Date Time Temp Pulse Resp B/P (MAP) Pulse Ox O2 Delivery O2 Flow Rate FiO2 06/14/21 17:22 98.4 78 18 95/50 (65) 97 06/14/21 07:02 Room Air I & O 06/13/21 06/13/21 06/14/21 15:00 23:00 07:00 Intake Total 240 ml 240 ml Balance 240 ml 240 ml Labs: Laboratory Tests Test 06/13/21 22:53 Urine Collection Type Clean catch Urine Color Yellow Urine Clarity Clear Urine pH 6.5 Urine Specific [place] 1.010 Urine Protein Neg (NEG-TRACE) Urine Glucose (UA) Neg mg/dL (NEG) Urine Ketones (Stick) Neg mg/dL (NEG) Urine Blood Neg (NEG) Urine Nitrite Neg (NEG) Urine Bilirubin Neg (NEG) Urine Urobilinogen Dipstick 1.0 mg/dL (0.2 mg/dL) Urine Leukocyte Esterase Neg (NEG) Urine RBC 0 /HPF (0-2) Urine WBC Rare /HPF (0-4) Urine Squamous Epithelial Cells Occ /LPF Urine Bacteria 0 /HPF (0-FEW) Current Medications: Meds: Laboratory Tests Test 06/13/21 22:53 Urine Collection Type Clean catch Urine Color Yellow Urine Clarity Clear Urine pH 6.5 Urine Specific [place] 1.010 Urine Protein Neg Urine Glucose (UA) Neg mg/dL Urine Ketones (Stick) Neg mg/dL Urine Blood Neg Urine Nitrite Neg Urine Bilirubin Neg Urine Urobilinogen Dipstick 1.0 mg/dL Urine Leukocyte Esterase Neg Urine RBC 0 /HPF Urine WBC Rare /HPF Urine Squamous Epithelial Cells Occ /LPF Urine Bacteria 0 /HPF Current Medications Medications (Trade) Dose Ordered Sig/Abundio Route PRN Reason Start Time Stop Time Status Last Admin Dose Admin Acetaminophen (Tylenol) 650 mg PRN Q6HRS PRN PO MILD PAIN / TEMP > 100.3'F 06/13/21 11:00 06/13/21 11:08 DC Multi-Ingredient Ointment (Analgesic [place]) 1 will PRN QID PRN TP MUSCLE PAIN 06/13/21 11:00 Al Hydroxide/Mg Hydroxide (Mylanta Plus Xs) 15 ml PRN AFTMEALHC PRN PO DYSPEPSIA 06/13/21 11:00 06/13/21 11:08 DC Magnesium Hydroxide (Milk Of Magnesia) 2,400 mg PRN QHS PRN PO CONSTIPATION 06/13/21 11:00 06/13/21 11:08 DC Acetaminophen (Tylenol) 650 mg PRN Q6HRS PRN PO MILD PAIN / TEMP > 100.3'F 06/13/21 12:45 06/14/21 20:22 Bisacodyl (Fleet Bisacodyl) 10 mg PRN DAILY PRN RC 2nd choice CONSTIPATION 06/13/21 12:45 Diclofenac Sodium (Voltaren) 1 will PRN BID PRN TP muscle PAIN 06/13/21 12:45 06/14/21 02:04 Divalproex Sodium (Depakote Er) 250 mg TID PO 06/13/21 14:00 06/14/21 13:29 DC 06/14/21 09:00 Furosemide (Lasix) 20 mg DAILY PO 06/14/21 09:00 06/14/21 09:49 Lidocaine (Lidoderm) 1 patch PRN DAILY PRN TP muscle PAIN 06/13/21 12:45 06/14/21 06:39 Lisinopril (Prinivil) 10 mg DAILY PO 06/14/21 09:00 06/14/21 09:50 Al Hydroxide/Mg Hydroxide (Mylanta Plus Xs) 15 ml PRN AFTMEALHC PRN PO DYSPEPSIA 06/13/21 12:45 Potassium Chloride (Klor-Con) 20 meq DAILY PO 06/14/21 09:00 06/14/21 09:50 Prazosin HCl (Minipress) 3 mg DAILY PO 06/14/21 09:00 06/14/21 09:50 Quetiapine Fumarate (SEROquel) 100 mg 0900,1400 PO 06/13/21 14:00 06/14/21 13:57 Quetiapine Fumarate (SEROquel) 1,250 mg PRN Q8HRS PRN PO 3RD CHOICE FOR ANXIETY 06/13/21 12:45 06/13/21 13:24 DC Quetiapine Fumarate (SEROquel) 200 mg QHS PO 06/13/21 21:00 06/14/21 20:22 Artificial Tears (Artificial Tears) 1 drop PRN DAILY PRN OU DRY EYE 06/13/21 13:30 Docusate Sodium (Colace) 100 mg BID PO 06/13/21 21:00 06/14/21 20:22 Loperamide HCl (Imodium) 2 mg PRN QID PRN PO DIARRHEA 06/13/21 13:15 Magnesium Hydroxide (Milk Of Magnesia) 2,400 mg PRN QHS PRN PO 1st choice CONSTIPATION 06/13/21 13:15 Non-Formulary Medication (Methyl Salicylate/ Menthol (Bengay Greaseless Cream)) 1 will PRN QID PRN TP MUSCLE PAIN 06/13/21 12:45 UNV Quetiapine Fumarate (SEROquel) 25 mg PRN Q8HRS PRN PO 3RD CHOICE FOR ANXIETY 06/13/21 14:00 Divalproex Sodium (Depakote Sprinkles) 250 mg TID PO 06/14/21 14:00 06/14/21 20:22 Fluvoxamine Maleate (Luvox) 25 mg DAILY PO 06/15/21 09:00 Current Medications Medications (Trade) Dose Ordered Sig/Abundio Route PRN Reason Start Time Stop Time Status Last Admin Dose Admin Furosemide (Lasix) 20 mg DAILY PO 06/14/21 09:00 06/14/21 09:49 Lisinopril (Prinivil) 10 mg DAILY PO 06/14/21 09:00 06/14/21 09:50 Potassium Chloride (Klor-Con) 20 meq DAILY PO 06/14/21 09:00 06/14/21 09:50 Prazosin HCl (Minipress) 3 mg DAILY PO 06/14/21 09:00 06/14/21 09:50 Divalproex Sodium (Depakote Sprinkles) 250 mg TID PO 06/14/21 14:00 06/14/21 20:22 I have reviewed the current psychotropics carefully including drug interactions. Risk benefit ratio favors no change other than as noted in my dictated progress note. Diagnosis: Problems: (1) Impulse control disorder, unspecified (2) Anxiety disorder, unspecified (3) Dementia, vascular, with depression (4) Dementia, vascular, with delusions (5) Dementia in Alzheimer's disease with depression (6) Dementia in Alzheimer's disease with delusions (7) Dementia of the Alzheimer's type with early onset with behavioral disturbance (8) Major neurocognitive disorder DUANE NINO MD Jun 14, 2021 21:38
--- NOTE | 2021-06-15 02:37 | RAD ---
EXAM: XR LT HIP (WITH OR WITHOUT PELVIS) 2 VIEWS 06/14/2021 1:35 PM CLINICAL INDICATION: Pain and history of recent falls COMPARISON: None TECHNIQUE: AP view of the the pelvis. AP view of the left hip. FINDINGS: There is no acute fracture. Alignment is normal. The hip joint spaces are maintained. Ther e are small femoral head and prominent acetabular osteophytes bilaterally. The pubic symphysis and sa croiliac joints are maintained. IMPRESSION: 1. No acute osseous abnormality. 2. Mild degenerative joint disease of the hips. Electronically signed by: Abiola Beck MD (06/14/2021 4:28 PM) [id number]
--- NOTE | 2021-06-15 04:44 | CONS ---
DATE OF CONSULTATION: 06/14/2021 ATTENDING PHYSICIAN: Dr. Nino. We are asked to see this patient for medical evaluation. HISTORY OF PRESENT ILLNESS: The patient is 80 years old. He is well known to me from previous admission last summer. We had him on the medical floor with asymptomatic COVID exposure. He returns. He is from the intermediate. He has had a very intrusive and aggressive behavior, refusing meds and hitting his peers. He has significant dementia. PAST MEDICAL HISTORY: Significant for macular degeneration, benign prostatic hypertrophy, hypertension, posttraumatic stress disorder, and frequent falls. ALLERGIES: He has no known drug allergies. CURRENT MEDICATIONS: Include Tylenol, bisacodyl, methylcellulose eyedrops, diclofenac topically, Depakote 250 t.i.d., docusate, Lasix, Lidoderm patch, lisinopril, loperamide p.r.n., magnesium hydroxide p.r.n., potassium, prazosin 3 mg daily, Seroquel scheduled at bedtime. SOCIAL HISTORY: He was a smoker in the past. Nonsmoker. No drinking history. FAMILY HISTORY: Unobtainable. REVIEW OF SYSTEMS: Unobtainable. PHYSICAL EXAMINATION: GENERAL: When I saw him, this is a pleasant elderly gentleman who was fairly cooperative. He remembers me from last year. VITAL SIGNS: Initial vital signs showed a blood pressure 125/75 mmHg, pulse is 80 and regular. He is afebrile. Oxygen saturation 98% on room air. HEENT: Head is without trauma. Pupils are reactive. Sclerae nonicteric. He has some actinic keratoses on his scalp. NECK: Supple, no bruits. LUNGS: Clear to auscultation. CARDIOVASCULAR: Regular heart tones. ABDOMEN: Soft. EXTREMITIES: Show trace edema. NEUROLOGIC: Pleasantly confused. No focal deficits. SKIN: Warm and dry. PERTINENT LABORATORY STUDIES: Admission hemoglobin 12.1 g/dL, white count 3000, platelets are at 112,000. Chemistry panel: Electrolytes, BUN and creatinine within normal range. Creatinine is 1.4 mg percent. Transaminases were normal. Serology negative for Treponema pallidum and coronavirus. ASSESSMENT: 1. This 80-year-old gentleman has profound dementia with behavioral issues. 2. Degenerative arthritis. 3. Mild leukopenia on admission, not clinically relevant. 4. Mild thrombocytopenia without any active bleeding, not clinically relevant. 5. History of macular degeneration. 6. Prostatic hypertrophy. 7. Posttraumatic stress disorder. RECOMMENDATIONS: I have reviewed his medications. He is stable at this time. These meds should be continued as scheduled. Thank you again for asking me to see the patient for medical consultation. We should gladly follow along during his inpatient stay. AIDEN DR: Luiz TID: [id number] CC: DUANE NINO MD
[2021-06-15 06:22] VITALS: BP 114/68
[2021-06-15] MEDS: FUROSEMIDE 20 MG TABLET PO SCH (08:39)
[2021-06-15] MEDS: LISINOPRIL 10 MG TABLET PO SCH (08:40)
[2021-06-15] MEDS: PRAZOSIN 1 MG CAPSULE. PO SCH (08:40)
[2021-06-15] MEDS: QUEtiapine 100 MG TABLET. PO SCH ×3 (08:40→20:31)
[2021-06-15] MEDS: POTASSIUM CHLORIDE 20 MEQ TABLET.ER. PO SCH (08:41)
[2021-06-15] MEDS: DOCUSATE SODIUM 100 MG CAPSULE PO SCH ×2 (08:41→20:31)
[2021-06-15] MEDS: DIVALPROEX 125 MG CAP.SPRINK PO SCH ×3 (08:41→20:31)
--- NOTE | 2021-06-15 09:08 | PDOC ---
Exam Note: Raman Note: This note is a late entry for 06/14/2021 covers elements not covered in my initial note. Subjective: The patient was reviewed at treatment team meeting individually in the morning on 06/14/2021 with Jennifer Zamora and Chioma Mart (social services technician), Maira, activity therapy, and Marifer MONTEMAYOR, discussed and reviewed the chart. The patient slept 5 hours previous night. Reviewed past history including circumstances prompting referral from [facility]. Discussed past treatment, response to treatment. He has had some delusions and complains of some pain in the left hip radiating down to his leg. He had a history of falls but is still able to bear weight on this. Nevertheless we will check an x-ray for his left hip as a precaution. He remains somewhat obsessive, anxious. I met with him in his room. He was having supper but was interactive with me. I also met with the patient individually in the evening as well. Review of Systems: No CV, , pulmonary, eye system symptoms on review. Reliability poor. Mental Status Exam: Patient is oriented to himself and situation. Insight, judgment, recent and remote memory, attention and concentration, fund of knowledge is poor consistent with his diagnosis. Laboratory Data: Reviewed. Impression: Major neurocognitive disorder, Alzheimer, vascular with delusion, depression, behavioral disturbance. Anxiety disorder unspecified. Impulse control disorder unspecified. Plan: Continue current psychotropics from initial note including Depakote 250 mg t.i.d., Prazosin 3 mg daily for PTSD, Seroquel 100 mg twice a day and 200 mg h.s. plus p.r.n. and start Luvox 25 mg a day for his anxiety and obsessiveness. We will make further adjustments as clinically indicated. Assessment: Vital Signs/I&O: Vital Signs Date Time Temp Pulse Resp B/P (MAP) Pulse Ox O2 Delivery O2 Flow Rate FiO2 06/15/21 08:40 94 114/68 06/15/21 06:22 97.0 16 98 06/14/21 07:02 Room Air I & O 06/14/21 06/14/21 06/15/21 15:00 23:00 07:00 Intake Total 490 ml 480 ml Balance 490 ml 480 ml Current Medications: Meds: Current Medications Medications (Trade) Dose Ordered Sig/Abundio Route PRN Reason Start Time Stop Time Status Last Admin Dose Admin Divalproex Sodium (Depakote Sprinkles) 250 mg TID PO 06/14/21 14:00 06/15/21 08:41 Fluvoxamine Maleate (Luvox) 25 mg DAILY PO 06/15/21 09:00 06/15/21 08:41 I have reviewed the current psychotropics carefully including drug interactions. Risk benefit ratio favors no change other than as noted in my dictated progress note. Diagnosis: Problems: (1) PTSD (post-traumatic stress disorder) (2) Impulse control disorder, unspecified (3) Anxiety disorder, unspecified (4) Dementia, vascular, with depression (5) Dementia, vascular, with delusions (6) Dementia in Alzheimer's disease with depression (7) Dementia in Alzheimer's disease with delusions (8) Dementia of the Alzheimer's type with early onset with behavioral disturbance (9) Major neurocognitive disorder DUANE NINO MD Jun 15, 2021 09:08
[2021-06-15] MEDS: LIDOCAINE (700MG/PATCH) PATCH. TP SCH (11:00)
[2021-06-15 15:55] VITALS: BP 85/60
--- NOTE | 2021-06-15 16:01 | TX PLAN ---
Interdisciplinary Tx Plan Admission Information Jun 13, 2021 at 10:53 Legal Status (on Admission): Voluntary DPOA/Guardian Name: Heidy Sunon- Contact Other Contact Name: [facility] Other Contact Verified Code Status: DNR Allergies: Coded Allergies: No Known Drug Allergies (Unverified , 08/28/20) Diagnoses Primary Diagnosis: Dementia with BD Reasons for Admission: Aggressive, Combative, Confusion/Disoriented, Other Problem in Patient's Words: May need further medication review. Additional Admission Comments: According to the intake, pt is intrusive, aggressive with staff and peers, refusing meds, frequent falls. Problems Active Problems: restless wandering intrusive resistive to medications Pt Strengths/Limitations Ability for [place]: Poor Cognitive Functioning/Ability: Fair Communication Skills/Ability: Fair Financial Resources: Fair Insight/Judgement: Poor Intellectual Ability: Fair Physical Health: Fair Social Skills: Poor Stability in School/Work: Poor Verbal Skills: Fair Discharge Criteria Discharge Criteria: Adequate arrangements @DC, Improved behavior, Improved mood/thought Preliminary Discharge Plan Preliminary DC Plan: Memory Care Special Precautions Fall Risk: High Initial D/C Plan Pt will plan to return to [facility] Identified Discharge Needs: Out patient psychiatry Currently Utilized Resources Currently Utilized Resources/P: PCP Referrals Community Resources: referral to outpt psychiatry Identified Problems/Hx/Goals Objectives/Short-Term Goals Short Term Goals: Dec. Aggression, Dec. Outbursts, Medication Stabilization, Monitor Med Effects, Promote Coping Skill Short Term Goals in Patient's: N/A Interventions/Frequency Staff Interventions/Frequency&: Psychiatrist to assess pt at least 3x per week for medicaiton management Social Work to assess pt at least 2x per week to identify barriers to care and finalize discharge plans. Nursing to assess medication effects, behavior modification, and complete 15 minute checks daily. Encourage participation in group activities (if applicable) or 1:1 engagement based of activity therapy goals. 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 He was later the state [employer] for [place]; he retired in 2003 Education: Eric graduated high school and attended some college. Community Follow-up PCP Treatment Plan Explained Patient/Chipping Machine Operator had this treatment plan explained to him/her as indicated by the signature below and has been given the opportunity to ask questions and make suggestions: Date: Patient/Chipping Machine Operator Signature: Patient/Chipping Machine Operator Decline: No (Pt is very active in pt care.) HERMAN DELAROSA Jun 15, 2021 16:01
[2021-06-15 20:29] VITALS: BP 119/69
[2021-06-15] MEDS: PATCH REMOVAL. MC SCH (20:31)
[2021-06-15] MEDS: ACETAMINOPHEN 325 MG TABLET PO PRN (20:31)
--- NOTE | 2021-06-15 21:56 | PDOC ---
Exam Note: Raman Note: Please also refer to the separate dictated note~for this date of service dictated separately.~Patient seen individually. Discussed the patient with Nursing staff reviewed the chart.~Reviewed interim history and current functioning. Reviewed vital signs,~Labs/ Radiology~and current medications noted below. Continue current treatment with the changes noted in the dictated addendum note Assessment: Vital Signs/I&O: Vital Signs Date Time Temp Pulse Resp B/P (MAP) Pulse Ox O2 Delivery O2 Flow Rate FiO2 06/15/21 20:29 77 119/69 (86) 06/15/21 15:55 97.9 18 98 06/14/21 07:02 Room Air I & O 06/14/21 06/14/21 06/15/21 15:00 23:00 07:00 Intake Total 490 ml 480 ml Balance 490 ml 480 ml Current Medications: Meds: Current Medications Medications (Trade) Dose Ordered Sig/Abundio Route PRN Reason Start Time Stop Time Status Last Admin Dose Admin Acetaminophen (Tylenol) 650 mg PRN Q6HRS PRN PO MILD PAIN / TEMP > 100.3'F 06/13/21 11:00 06/13/21 11:08 DC Multi-Ingredient Ointment (Analgesic [place]) 1 will PRN QID PRN TP MUSCLE PAIN 06/13/21 11:00 Al Hydroxide/Mg Hydroxide (Mylanta Plus Xs) 15 ml PRN AFTMEALHC PRN PO DYSPEPSIA 06/13/21 11:00 06/13/21 11:08 DC Magnesium Hydroxide (Milk Of Magnesia) 2,400 mg PRN QHS PRN PO CONSTIPATION 06/13/21 11:00 06/13/21 11:08 DC Acetaminophen (Tylenol) 650 mg PRN Q6HRS PRN PO MILD PAIN / TEMP > 100.3'F 06/13/21 12:45 06/15/21 20:31 Bisacodyl (Fleet Bisacodyl) 10 mg PRN DAILY PRN RC 2nd choice CONSTIPATION 06/13/21 12:45 Diclofenac Sodium (Voltaren) 1 will PRN BID PRN TP muscle PAIN 06/13/21 12:45 06/14/21 02:04 Divalproex Sodium (Depakote Er) 250 mg TID PO 06/13/21 14:00 06/14/21 13:29 DC 06/14/21 09:00 Furosemide (Lasix) 20 mg DAILY PO 06/14/21 09:00 06/15/21 08:39 Lidocaine (Lidoderm) 1 patch PRN DAILY PRN TP muscle PAIN 06/13/21 12:45 06/15/21 10:37 DC 06/14/21 06:39 Lisinopril (Prinivil) 10 mg DAILY PO 06/14/21 09:00 06/15/21 08:40 Al Hydroxide/Mg Hydroxide (Mylanta Plus Xs) 15 ml PRN AFTMEALHC PRN PO DYSPEPSIA 06/13/21 12:45 Potassium Chloride (Klor-Con) 20 meq DAILY PO 06/14/21 09:00 06/15/21 08:41 Prazosin HCl (Minipress) 3 mg DAILY PO 06/14/21 09:00 06/15/21 08:40 Quetiapine Fumarate (SEROquel) 100 mg 0900,1400 PO 06/13/21 14:00 06/15/21 14:46 Quetiapine Fumarate (SEROquel) 1,250 mg PRN Q8HRS PRN PO 3RD CHOICE FOR ANXIETY 06/13/21 12:45 06/13/21 13:24 DC Quetiapine Fumarate (SEROquel) 200 mg QHS PO 06/13/21 21:00 06/15/21 20:31 Artificial Tears (Artificial Tears) 1 drop PRN DAILY PRN OU DRY EYE 06/13/21 13:30 Docusate Sodium (Colace) 100 mg BID PO 06/13/21 21:00 06/15/21 20:31 Loperamide HCl (Imodium) 2 mg PRN QID PRN PO DIARRHEA 06/13/21 13:15 Magnesium Hydroxide (Milk Of Magnesia) 2,400 mg PRN QHS PRN PO 1st choice CONSTIPATION 06/13/21 13:15 Non-Formulary Medication (Methyl Salicylate/ Menthol (Bengay Greaseless Cream)) 1 will PRN QID PRN TP MUSCLE PAIN 06/13/21 12:45 UNV Quetiapine Fumarate (SEROquel) 25 mg PRN Q8HRS PRN PO 3RD CHOICE FOR ANXIETY 06/13/21 14:00 Divalproex Sodium (Depakote Sprinkles) 250 mg TID PO 06/14/21 14:00 06/15/21 20:31 Fluvoxamine Maleate (Luvox) 25 mg DAILY PO 06/15/21 09:00 06/15/21 08:41 Lidocaine (Lidoderm) 1 patch DAILY TP 06/15/21 11:00 06/15/21 11:00 Miscellaneous (Lidoderm Patch Removal) 1 [facility] 06/15/21 21:00 06/15/21 20:31 Current Medications Medications (Trade) Dose Ordered Sig/Abundio Route PRN Reason Start Time Stop Time Status Last Admin Dose Admin Fluvoxamine Maleate (Luvox) 25 mg DAILY PO 06/15/21 09:00 06/15/21 08:41 Lidocaine (Lidoderm) 1 patch DAILY TP 06/15/21 11:00 06/15/21 11:00 Miscellaneous (Lidoderm Patch Removal) 1 [facility] 06/15/21 21:00 06/15/21 20:31 I have reviewed the current psychotropics carefully including drug interactions. Risk benefit ratio favors no change other than as noted in my dictated progress note. 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
[2021-06-15] MEDS: MIRTAZAPINE 7.5 MG TABLET. PO SCH (22:48)
[2021-06-16] MEDS: traZODone 50 MG TABLET. PO PRN ×2 (00:33→20:22)
[2021-06-16 06:33] VITALS: BP 126/71
[2021-06-16] MEDS: QUEtiapine 100 MG TABLET. PO SCH ×3 (08:16→20:22)
[2021-06-16] MEDS: POTASSIUM CHLORIDE 20 MEQ TABLET.ER. PO SCH (08:16)
[2021-06-16] MEDS: PRAZOSIN 1 MG CAPSULE. PO SCH (08:16)
[2021-06-16] MEDS: LIDOCAINE (700MG/PATCH) PATCH. TP SCH (08:17)
[2021-06-16] MEDS: VALPROATE ACID 250 MG/5 ML ORAL SOLUTION PO SCH ×3 (08:18→20:22)
[2021-06-16] MEDS: DOCUSATE 100 MG/10 ML SOLUTION. PO SCH ×2 (08:18→20:22)
[2021-06-16] MEDS: LISINOPRIL 10 MG TABLET PO SCH (08:18)
[2021-06-16] MEDS: FUROSEMIDE 20 MG TABLET PO SCH (08:18)
[2021-06-16 15:54] VITALS: BP 106/57
[2021-06-16] MEDS: MIRTAZAPINE 7.5 MG TABLET. PO SCH (20:22)
[2021-06-16] MEDS: PATCH REMOVAL. MC SCH (20:22)
--- NOTE | 2021-06-16 21:36 | PDOC ---
Exam Note: Raman Note: Please also refer to the separate dictated note~for this date of service dictated separately.~Patient seen individually. Discussed the patient with Nursing staff reviewed the chart.~Reviewed interim history and current functioning. Reviewed vital signs,~Labs/ Radiology~and current medications noted below. Continue current treatment with the changes noted in the dictated addendum note Assessment: Vital Signs/I&O: Vital Signs Date Time Temp Pulse Resp B/P (MAP) Pulse Ox O2 Delivery O2 Flow Rate FiO2 06/16/21 15:54 97.3 87 16 106/57 (73) 99 Room Air I & O 06/15/21 06/15/21 06/16/21 15:00 23:00 07:00 Intake Total 480 ml 300 ml Balance 480 ml 300 ml Current Medications: Meds: Current Medications Medications (Trade) Dose Ordered Sig/Abundio Route PRN Reason Start Time Stop Time Status Last Admin Dose Admin Acetaminophen (Tylenol) 650 mg PRN Q6HRS PRN PO MILD PAIN / TEMP > 100.3'F 06/13/21 11:00 06/13/21 11:08 DC Multi-Ingredient Ointment (Analgesic [place]) 1 will PRN QID PRN TP MUSCLE PAIN 06/13/21 11:00 Al Hydroxide/Mg Hydroxide (Mylanta Plus Xs) 15 ml PRN AFTMEALHC PRN PO DYSPEPSIA 06/13/21 11:00 06/13/21 11:08 DC Magnesium Hydroxide (Milk Of Magnesia) 2,400 mg PRN QHS PRN PO CONSTIPATION 06/13/21 11:00 06/13/21 11:08 DC Acetaminophen (Tylenol) 650 mg PRN Q6HRS PRN PO MILD PAIN / TEMP > 100.3'F 06/13/21 12:45 06/15/21 20:31 Bisacodyl (Fleet Bisacodyl) 10 mg PRN DAILY PRN RC 2nd choice CONSTIPATION 06/13/21 12:45 Diclofenac Sodium (Voltaren) 1 will PRN BID PRN TP muscle PAIN 06/13/21 12:45 06/14/21 02:04 Divalproex Sodium (Depakote Er) 250 mg TID PO 06/13/21 14:00 06/14/21 13:29 DC 06/14/21 09:00 Furosemide (Lasix) 20 mg DAILY PO 06/14/21 09:00 06/16/21 08:18 Lidocaine (Lidoderm) 1 patch PRN DAILY PRN TP muscle PAIN 06/13/21 12:45 06/15/21 10:37 DC 06/14/21 06:39 Lisinopril (Prinivil) 10 mg DAILY PO 06/14/21 09:00 06/15/21 08:40 Al Hydroxide/Mg Hydroxide (Mylanta Plus Xs) 15 ml PRN AFTMEALHC PRN PO DYSPEPSIA 06/13/21 12:45 Potassium Chloride (Klor-Con) 20 meq DAILY PO 06/14/21 09:00 06/16/21 08:16 Prazosin HCl (Minipress) 3 mg DAILY PO 06/14/21 09:00 06/16/21 08:16 Quetiapine Fumarate (SEROquel) 100 mg 0900,1400 PO 06/13/21 14:00 06/16/21 14:48 Quetiapine Fumarate (SEROquel) 1,250 mg PRN Q8HRS PRN PO 3RD CHOICE FOR ANXIETY 06/13/21 12:45 06/13/21 13:24 DC Quetiapine Fumarate (SEROquel) 200 mg QHS PO 06/13/21 21:00 06/16/21 20:22 Artificial Tears (Artificial Tears) 1 drop PRN DAILY PRN OU DRY EYE 06/13/21 13:30 Docusate Sodium (Colace) 100 mg BID PO 06/13/21 21:00 06/15/21 21:58 DC 06/15/21 20:31 Loperamide HCl (Imodium) 2 mg PRN QID PRN PO DIARRHEA 06/13/21 13:15 Magnesium Hydroxide (Milk Of Magnesia) 2,400 mg PRN QHS PRN PO 1st choice CONSTIPATION 06/13/21 13:15 Non-Formulary Medication (Methyl Salicylate/ Menthol (Bengay Greaseless Cream)) 1 will PRN QID PRN TP MUSCLE PAIN 06/13/21 12:45 UNV Quetiapine Fumarate (SEROquel) 25 mg PRN Q8HRS PRN PO 3RD CHOICE FOR ANXIETY 06/13/21 14:00 Divalproex Sodium (Depakote Sprinkles) 250 mg TID PO 06/14/21 14:00 06/15/21 21:58 DC 06/15/21 20:31 Fluvoxamine Maleate (Luvox) 25 mg DAILY PO 06/15/21 09:00 06/16/21 08:16 Lidocaine (Lidoderm) 1 patch DAILY TP 06/15/21 11:00 06/16/21 08:17 Miscellaneous (Lidoderm Patch Removal) 1 ea QHS [facility] 06/15/21 21:00 06/16/21 20:22 Valproic Acid (Depakene) 250 mg [id number] PO 06/16/21 09:00 06/16/21 20:22 Docusate Sodium (Colace Solution) 100 mg BID PO 06/16/21 09:00 06/16/21 20:22 Mirtazapine (Remeron) 7.5 mg QHS PO 06/15/21 22:45 06/16/21 20:22 Trazodone HCl (Desyrel) 50 mg PRN QHS PRN PO INSOMNIA 06/15/21 22:45 06/16/21 20:22 Current Medications Medications (Trade) Dose Ordered Sig/Abundio Route PRN Reason Start Time Stop Time Status Last Admin Dose Admin Valproic Acid (Depakene) 250 mg [id number] PO 06/16/21 09:00 06/16/21 20:22 Docusate Sodium (Colace Solution) 100 mg BID PO 06/16/21 09:00 06/16/21 20:22 Mirtazapine (Remeron) 7.5 mg QHS PO 06/15/21 22:45 06/16/21 20:22 Trazodone HCl (Desyrel) 50 mg PRN QHS PRN PO INSOMNIA 06/15/21 22:45 06/16/21 20:22 I have reviewed the current psychotropics carefully including drug interactions. Risk benefit ratio favors no change other than as noted in my dictated progress note. Diagnosis: Problems: (1) Impulse control disorder, unspecified (2) Anxiety disorder, unspecified (3) Dementia, vascular, with depression (4) Dementia, vascular, with delusions (5) Dementia in Alzheimer's disease with depression (6) Dementia in Alzheimer's disease with delusions (7) Dementia of the Alzheimer's type with early onset with behavioral disturbance (8) Major neurocognitive disorder (9) PTSD (post-traumatic stress disorder) DUANE NINO MD June 16, 2021 21:36
[2021-06-17] MEDS: ACETAMINOPHEN 325 MG TABLET PO PRN ×2 (00:11→16:05)
[2021-06-17] MEDS: QUEtiapine 25 MG TABLET. PO PRN ×2 (00:11→12:06)
[2021-06-17 06:13] VITALS: BP 125/65
--- NOTE | 2021-06-17 06:50 | PDOC ---
Exam Note: Raman Note: This note is a late entry for 06/15/2021 covers elements not covered in my initial note. Subjective: The patient was seen individually on 06/15/2021, discussed and reviewed the chart with Andreia MONTEMAYOR. The patient slept 6-1/2 hours previous night. He has been confused, but calm, spends much time in his room, compliant with medications, tries to spit out his meds at times. We will change the Depakote Sprinkle to liquid to assist with this. Review of Systems: No CV, , pulmonary, eye system symptoms on review. Reliability poor. Mental Status Exam: Patient is oriented to himself and situation. I met with him in his room. Insight, judgment, recent and remote memory, attention and concentration, fund of knowledge is poor consistent with his diagnosis. Laboratory Data: Reviewed. Impression: Major neurocognitive disorder, Alzheimer, vascular with delusion, depression, behavioral disturbance. Anxiety disorder unspecified. Impulse con trol disorder unspecified. Plan: Continue current psychotropics from initial note. Reviewed drug interactions and risk-benefit ratio, Assessment: Vital Signs/I&O: Vital Signs Date Time Temp Pulse Resp B/P (MAP) Pulse Ox O2 Delivery O2 Flow Rate FiO2 06/17/21 06:13 97.7 66 16 125/65 (85) 98 06/16/21 15:54 Room Air I & O 06/16/21 06/16/21 06/17/21 15:00 23:00 07:00 Intake Total 480 ml 480 ml Balance 480 ml 480 ml Current Medications: Meds: Current Medications Medications (Trade) Dose Ordered Sig/Abundio Route PRN Reason Start Time Stop Time Status Last Admin Dose Admin Valproic Acid (Depakene) 250 mg [id number] PO 06/16/21 09:00 06/16/21 20:22 Docusate Sodium (Colace Solution) 100 mg BID PO 06/16/21 09:00 06/16/21 20:22 I have reviewed the current psychotropics carefully including drug interactions. Risk benefit ratio favors no change other than as noted in my dictated progress note. Diagnosis: Problems: (1) Impulse control disorder, unspecified (2) Anxiety disorder, unspecified (3) Dementia, vascular, with depression (4) Dementia, vascular, with delusions (5) Dementia in Alzheimer's disease with depression (6) Dementia in Alzheimer's disease with delusions (7) Dementia of the Alzheimer's type with early onset with behavioral disturbance (8) Major neurocognitive disorder (9) PTSD (post-traumatic stress disorder) DUANE NINO MD June 17, 2021 06:50
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
[2021-06-17] MEDS: PRAZOSIN 1 MG CAPSULE. PO SCH (08:27)
[2021-06-17] MEDS: QUEtiapine 100 MG TABLET. PO SCH ×3 (08:28→20:01)
[2021-06-17] MEDS: LISINOPRIL 10 MG TABLET PO SCH (08:28)
[2021-06-17] MEDS: FUROSEMIDE 20 MG TABLET PO SCH (08:28)
[2021-06-17] MEDS: DOCUSATE 100 MG/10 ML SOLUTION. PO SCH ×2 (08:28→20:00)
[2021-06-17] MEDS: VALPROATE ACID 250 MG/5 ML ORAL SOLUTION PO SCH ×3 (08:28→20:00)
[2021-06-17] MEDS: POTASSIUM CHLORIDE 20 MEQ TABLET.ER. PO SCH (08:28)
[2021-06-17] MEDS: LIDOCAINE (700MG/PATCH) PATCH. TP SCH (08:29)
[2021-06-17 15:39] VITALS: BP 107/62
[2021-06-17] MEDS: traZODone 50 MG TABLET. PO PRN (20:01)
[2021-06-17] MEDS: MIRTAZAPINE 7.5 MG TABLET. PO SCH (20:01)
[2021-06-17] MEDS: PATCH REMOVAL. MC SCH (20:02)
--- NOTE | 2021-06-17 21:31 | PDOC ---
Exam Note: Raman Note: Please also refer to the separate dictated note~for this date of service dictated separately.~Patient seen individually. Discussed the patient with Nursing staff reviewed the chart.~Reviewed interim history and current functioning. Reviewed vital signs,~Labs/ Radiology~and current medications noted below. Continue current treatment with the changes noted in the dictated addendum note Assessment: Vital Signs/I&O: Vital Signs Date Time Temp Pulse Resp B/P (MAP) Pulse Ox O2 Delivery O2 Flow Rate FiO2 06/17/21 15:39 98.2 84 18 107/62 (77) 95 06/16/21 15:54 Room Air I & O 06/16/21 06/16/21 06/17/21 15:00 23:00 07:00 Intake Total 480 ml 480 ml Balance 480 ml 480 ml Current Medications: Meds: Current Medications Medications (Trade) Dose Ordered Sig/Abundio Route PRN Reason Start Time Stop Time Status Last Admin Dose Admin Acetaminophen (Tylenol) 650 mg PRN Q6HRS PRN PO MILD PAIN / TEMP > 100.3'F 06/13/21 11:00 06/13/21 11:08 DC Multi-Ingredient Ointment (Analgesic [place]) 1 will PRN QID PRN TP 2ND CHOICE MUSCLE PAIN 06/13/21 11:00 Al Hydroxide/Mg Hydroxide (Mylanta Plus Xs) 15 ml PRN AFTMEALHC PRN PO DYSPEPSIA 06/13/21 11:00 06/13/21 11:08 DC Magnesium Hydroxide (Milk Of Magnesia) 2,400 mg PRN QHS PRN PO CONSTIPATION 06/13/21 11:00 06/13/21 11:08 DC Acetaminophen (Tylenol) 650 mg PRN Q6HRS PRN PO MILD PAIN / TEMP > 100.3'F 06/13/21 12:45 06/17/21 16:05 Bisacodyl (Fleet Bisacodyl) 10 mg PRN DAILY PRN RC 2nd choice CONSTIPATION 06/13/21 12:45 Diclofenac Sodium (Voltaren) 1 will PRN BID PRN TP 1st choice muscle PAIN 06/13/21 12:45 06/14/21 02:04 Divalproex Sodium (Depakote Er) 250 mg TID PO 06/13/21 14:00 06/14/21 13:29 DC 06/14/21 09:00 Furosemide (Lasix) 20 mg DAILY PO 06/14/21 09:00 06/17/21 08:28 Lidocaine (Lidoderm) 1 patch PRN DAILY PRN TP muscle PAIN 06/13/21 12:45 06/15/21 10:37 DC 06/14/21 06:39 Lisinopril (Prinivil) 10 mg DAILY PO 06/14/21 09:00 06/17/21 08:28 Al Hydroxide/Mg Hydroxide (Mylanta Plus Xs) 15 ml PRN AFTMEALHC PRN PO DYSPEPSIA 06/13/21 12:45 Potassium Chloride (Klor-Con) 20 meq DAILY PO 06/14/21 09:00 06/17/21 08:28 Prazosin HCl (Minipress) 3 mg DAILY PO 06/14/21 09:00 06/17/21 08:27 Quetiapine Fumarate (SEROquel) 100 mg 0900,1400 PO 06/13/21 14:00 06/17/21 13:49 Quetiapine Fumarate (SEROquel) 1,250 mg PRN Q8HRS PRN PO 3RD CHOICE FOR ANXIETY 06/13/21 12:45 06/13/21 13:24 DC Quetiapine Fumarate (SEROquel) 200 mg QHS PO 06/13/21 21:00 06/17/21 20:01 Artificial Tears (Artificial Tears) 1 drop PRN DAILY PRN OU DRY EYE 06/13/21 13:30 Docusate Sodium (Colace) 100 mg BID PO 06/13/21 21:00 06/15/21 21:58 DC 06/15/21 20:31 Loperamide HCl (Imodium) 2 mg PRN QID PRN PO DIARRHEA 06/13/21 13:15 Magnesium Hydroxide (Milk Of Magnesia) 2,400 mg PRN QHS PRN PO 1st choice CONSTIPATION 06/13/21 13:15 Non-Formulary Medication (Methyl Salicylate/ Menthol (Bengay Greaseless Cream)) 1 will PRN QID PRN TP MUSCLE PAIN 06/13/21 12:45 UNV Quetiapine Fumarate (SEROquel) 25 mg PRN Q8HRS PRN PO ANXIETY 06/13/21 14:00 06/17/21 17:39 DC 06/17/21 12:06 Divalproex Sodium (Depakote Sprinkles) 250 mg TID PO 06/14/21 14:00 06/15/21 21:58 DC 06/15/21 20:31 Fluvoxamine Maleate (Luvox) 25 mg DAILY PO 06/15/21 09:00 06/17/21 08:26 Lidocaine (Lidoderm) 1 patch DAILY TP 06/15/21 11:00 06/17/21 08:29 Miscellaneous (Lidoderm Patch Removal) 1 ea QHS MC 06/15/21 21:00 06/17/21 20:02 Valproic Acid (Depakene) 250 mg [id number] PO 06/16/21 09:00 06/17/21 20:00 Docusate Sodium (Colace Solution) 100 mg BID PO 06/16/21 09:00 06/17/21 20:00 Mirtazapine (Remeron) 7.5 mg QHS PO 06/15/21 22:45 06/17/21 20:01 Trazodone HCl (Desyrel) 50 mg PRN QHS PRN PO INSOMNIA, MAY REPEAT X1 06/15/21 22:45 06/17/21 20:01 Olanzapine (ZyPREXA ZYDIS) 2.5 mg PRN Q2HRS PRN PO PSYCHOSIS 06/17/21 17:45 06/17/21 20:01 Current Medications Medications (Trade) Dose Ordered Sig/Abundio Route PRN Reason Start Time Stop Time Status Last Admin Dose Admin Olanzapine (ZyPREXA ZYDIS) 2.5 mg PRN Q2HRS PRN PO PSYCHOSIS 06/17/21 17:45 06/17/21 20:01 I have reviewed the current psychotropics carefully including drug interactions. Risk benefit ratio favors no change other than as noted in my dictated progress note. Diagnosis: Problems: (1) Impulse control disorder, unspecified (2) Anxiety disorder, unspecified (3) Dementia, vascular, with depression (4) Dementia, vascular, with delusions (5) Dementia in Alzheimer's disease with depression (6) Dementia in Alzheimer's disease with delusions (7) Dementia of the Alzheimer's type with early onset with behavioral disturbance (8) Major neurocognitive disorder (9) PTSD (post-traumatic stress disorder) DUANE NINO MD June 17, 2021 21:31
[2021-06-18 06:27] VITALS: BP 139/79
[2021-06-18 06:55] LABS: VAL ACID 32 mcg/mL (50-100)
[2021-06-18] MEDS: DOCUSATE 100 MG/10 ML SOLUTION. PO SCH ×2 (08:39→19:58)
[2021-06-18] MEDS: POTASSIUM CHLORIDE 20 MEQ TABLET.ER. PO SCH (08:39)
[2021-06-18] MEDS: FUROSEMIDE 20 MG TABLET PO SCH (08:39)
[2021-06-18] MEDS: VALPROATE ACID 250 MG/5 ML ORAL SOLUTION PO SCH ×3 (08:39→19:59)
[2021-06-18] MEDS: LISINOPRIL 10 MG TABLET PO SCH (08:39)
[2021-06-18] MEDS: PRAZOSIN 1 MG CAPSULE. PO SCH (08:40)
[2021-06-18] MEDS: LIDOCAINE (700MG/PATCH) PATCH. TP SCH (08:40)
[2021-06-18] MEDS: QUEtiapine 100 MG TABLET. PO SCH ×2 (08:40→14:09)
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
[2021-06-18] MEDS: ACETAMINOPHEN 325 MG TABLET PO PRN (15:24)
[2021-06-18] MEDS: risperiDONE 0.25 MG TABLET. PO SCH (18:11)
[2021-06-18] MEDS: MIRTAZAPINE 7.5 MG TABLET. PO SCH (19:59)
[2021-06-18] MEDS: traZODone 50 MG TABLET. PO PRN (19:59)
[2021-06-18] MEDS: PATCH REMOVAL. MC SCH (19:59)
[2021-06-18 21:40] VITALS: BP 101/60
--- NOTE | 2021-06-18 21:42 | PDOC ---
Exam Note: Raman Note: Please also refer to the separate dictated note~for this date of service dictated separately.~Patient seen individually. Discussed the patient with Nursing staff reviewed the chart.~Reviewed interim history and current functioning. Reviewed vital signs,~Labs/ Radiology~and current medications noted below. Continue current treatment with the changes noted in the dictated addendum note Assessment: Vital Signs/I&O: Vital Signs Date Time Temp Pulse Resp B/P (MAP) Pulse Ox O2 Delivery O2 Flow Rate FiO2 06/18/21 21:40 97.7 90 20 101/60 (74) 100 06/18/21 06:27 Room Air I & O 06/17/21 06/17/21 06/18/21 15:00 23:00 07:00 Intake Total 240 ml 240 ml Balance 240 ml 240 ml Labs: Laboratory Tests Test 06/18/21 06:18 Valproic Acid Level 32 mcg/mL (50-100) L Valproic Acid Last Dose Date 06/17/21 Valproic Acid Last Dose Time 2100 Current Medications: Meds: Laboratory Tests Test 06/18/21 06:18 Valproic Acid (Depakene) Level 32 mcg/mL Valproic Acid Last Dose Date 06/17/21 Valproic Acid Last Dose Time 2100 Current Medications Medications (Trade) Dose Ordered Sig/Abundio Route PRN Reason Start Time Stop Time Status Last Admin Dose Admin Acetaminophen (Tylenol) 650 mg PRN Q6HRS PRN PO MILD PAIN / TEMP > 100.3'F 06/13/21 11:00 06/13/21 11:08 DC Multi-Ingredient Ointment (Analgesic [place]) 1 will PRN QID PRN TP 2ND CHOICE MUSCLE PAIN 06/13/21 11:00 Al Hydroxide/Mg Hydroxide (Mylanta Plus Xs) 15 ml PRN AFTMEALHC PRN PO DYSPEPSIA 06/13/21 11:00 06/13/21 11:08 DC Magnesium Hydroxide (Milk Of Magnesia) 2,400 mg PRN QHS PRN PO CONSTIPATION 06/13/21 11:00 06/13/21 11:08 DC Acetaminophen (Tylenol) 650 mg PRN Q6HRS PRN PO MILD PAIN / TEMP > 100.3'F 06/13/21 12:45 06/18/21 15:24 Bisacodyl (Fleet Bisacodyl) 10 mg PRN DAILY PRN RC 2nd choice CONSTIPATION 06/13/21 12:45 Diclofenac Sodium (Voltaren) 1 will PRN BID PRN TP 1st choice muscle PAIN 06/13/21 12:45 06/14/21 02:04 Divalproex Sodium (Depakote Er) 250 mg TID PO 06/13/21 14:00 06/14/21 13:29 DC 06/14/21 09:00 Furosemide (Lasix) 20 mg DAILY PO 06/14/21 09:00 06/18/21 08:39 Lidocaine (Lidoderm) 1 patch PRN DAILY PRN TP muscle PAIN 06/13/21 12:45 06/15/21 10:37 DC 06/14/21 06:39 Lisinopril (Prinivil) 10 mg DAILY PO 06/14/21 09:00 06/18/21 08:39 Al Hydroxide/Mg Hydroxide (Mylanta Plus Xs) 15 ml PRN AFTMEALHC PRN PO DYSPEPSIA 06/13/21 12:45 Potassium Chloride (Klor-Con) 20 meq DAILY PO 06/14/21 09:00 06/18/21 08:39 Prazosin HCl (Minipress) 3 mg DAILY PO 06/14/21 09:00 06/18/21 08:40 Quetiapine Fumarate (SEROquel) 100 mg 0900,1400 PO 06/13/21 14:00 06/18/21 16:54 DC 06/18/21 14:09 Quetiapine Fumarate (SEROquel) 1,250 mg PRN Q8HRS PRN PO 3RD CHOICE FOR ANXIETY 06/13/21 12:45 06/13/21 13:24 DC Quetiapine Fumarate (SEROquel) 200 mg QHS PO 06/13/21 21:00 06/18/21 16:54 DC 06/17/21 20:01 Artificial Tears (Artificial Tears) 1 drop PRN DAILY PRN OU DRY EYE 06/13/21 13:30 Docusate Sodium (Colace) 100 mg BID PO 06/13/21 21:00 06/15/21 21:58 DC 06/15/21 20:31 Loperamide HCl (Imodium) 2 mg PRN QID PRN PO DIARRHEA 06/13/21 13:15 Magnesium Hydroxide (Milk Of Magnesia) 2,400 mg PRN QHS PRN PO 1st choice CONSTIPATION 06/13/21 13:15 Non-Formulary Medication (Methyl Salicylate/ Menthol (Bengay Greaseless Cream)) 1 will PRN QID PRN TP MUSCLE PAIN 06/13/21 12:45 UNV Quetiapine Fumarate (SEROquel) 25 mg PRN Q8HRS PRN PO ANXIETY 06/13/21 14:00 06/17/21 17:39 DC 06/17/21 12:06 Divalproex Sodium (Depakote Sprinkles) 250 mg TID PO 06/14/21 14:00 06/15/21 21:58 DC 06/15/21 20:31 Fluvoxamine Maleate (Luvox) 25 mg DAILY PO 06/15/21 09:00 06/18/21 08:40 Lidocaine (Lidoderm) 1 patch DAILY TP 06/15/21 11:00 06/18/21 08:40 Miscellaneous (Lidoderm Patch Removal) 1 ea QHS MC 06/15/21 21:00 06/18/21 19:59 Valproic Acid (Depakene) 250 mg [id number] PO 06/16/21 09:00 06/18/21 16:54 DC 06/18/21 14:09 Docusate Sodium (Colace Solution) 100 mg BID PO 06/16/21 09:00 06/18/21 19:58 Mirtazapine (Remeron) 7.5 mg QHS PO 06/15/21 22:45 06/18/21 19:59 Trazodone HCl (Desyrel) 50 mg PRN QHS PRN PO INSOMNIA, MAY REPEAT X1 06/15/21 22:45 06/18/21 19:59 Olanzapine (ZyPREXA ZYDIS) 2.5 mg PRN Q2HRS PRN PO PSYCHOSIS 06/17/21 17:45 06/18/21 19:59 Valproic Acid (Depakene) 250 mg 0900,1400 PO 06/19/21 09:00 Valproic Acid (Depakene) 500 mg QHS PO 06/18/21 21:00 06/18/21 19:59 Risperidone (RisperDAL) 0.25 mg 0900,1300,1700 PO 06/18/21 17:00 06/18/21 18:11 Current Medications Medications (Trade) Dose Ordered Sig/Abundio Route PRN Reason Start Time Stop Time Status Last Admin Dose Admin Valproic Acid (Depakene) 500 mg QHS PO 06/18/21 21:00 06/18/21 19:59 Risperidone (RisperDAL) 0.25 mg 0900,1300,1700 PO 06/18/21 17:00 06/18/21 18:11 I have reviewed the current psychotropics carefully including drug interactions. Risk benefit ratio favors no change other than as noted in my dictated progress note. Diagnosis: Problems: (1) Impulse control disorder, unspecified (2) Anxiety disorder, unspecified (3) Dementia, vascular, with depression (4) Dementia, vascular, with delusions (5) Dementia in Alzheimer's disease with depression (6) Dementia in Alzheimer's disease with delusions (7) Dementia of the Alzheimer's type with early onset with behavioral disturbance (8) Major neurocognitive disorder (9) PTSD (post-traumatic stress disorder) DUANE NINO MD June 18, 2021 21:42
[2021-06-19 05:54] VITALS: BP 99/52
--- NOTE | 2021-06-19 06:15 | PDOC ---
Exam Note: Raman Note: This note is a late entry for 06/18/2021 covers elements not covered in my initial note. Subjective: The patient was seen individually on 06/18/2021, discussed and reviewed the chart with Marifer MONTEMAYOR. The patient slept 2-1/2 hours previous night. Overall he has had a better day though he remains delusional, very confused. Reportedly he has urinated on the floor once. Valproic acid level is subtherapeutic at 32. Review of Systems: No CV, , pulmonary, eye system symptoms on review. Reliability poor. Mental Status Exam: I met with him in his room. He is awake, alert, oriented to himself. Insight, judgment, recent and remote memory, attention and concentration, fund of knowledge is poor consistent with his diagnosis. He is quite paranoid, delusional with intermittent pressure of speech. Laboratory Data: Reviewed. Impression: Major neurocognitive disorder, Alzheimer, vascular with delusion, depression, behavioral disturbance. Anxiety disorder unspecified. Impulse control disorder unspecified. Plan: He is currently on Depakene 250 mg t.i.d. with a level of 32 subtherapeutic. We will increase it to 250 mg b.i.d. and 500 mg h.s. Check CBC, CMP, valproic acid level and ammonia level in 3 days. Also significant his significant ongoing psychosis, we will change Seroquel to Risperdal 0.25 mg 9 a.m., 1 p.m. and 5 p.m. Maintain rest psychotropics from initial note. Reviewed drug interactions and risk-benefit ratio. Assessment: Vital Signs/I&O: Vital Signs Date Time Temp Pulse Resp B/P (MAP) Pulse Ox O2 Delivery O2 Flow Rate FiO2 06/19/21 05:54 97.6 63 18 99/52 (68) 96 Room Air I & O 06/18/21 06/18/21 06/19/21 15:00 23:00 07:00 Intake Total 840 ml 0 ml Balance 840 ml 0 ml Labs: Laboratory Tests Test 06/18/21 06:18 Valproic Acid Level 32 mcg/mL (50-100) L Valproic Acid Last Dose Date 06/17/21 Valproic Acid Last Dose Time 2100 Current Medications: Meds: Current Medications Medications (Trade) Dose Ordered Sig/Abundio Route PRN Reason Start Time Stop Time Status Last Admin Dose Admin Valproic Acid (Depakene) 500 mg QHS PO 06/18/21 21:00 06/18/21 19:59 Risperidone (RisperDAL) 0.25 mg 0900,1300,1700 PO 06/18/21 17:00 06/18/21 18:11 I have reviewed the current psychotropics carefully including drug interactions. Risk benefit ratio favors no change other than as noted in my dictated progress note. Diagnosis: Problems: (1) Impulse control disorder, unspecified (2) Anxiety disorder, unspecified (3) Dementia, vascular, with depression (4) Dementia, vascular, with delusions (5) Dementia in Alzheimer's disease with depression (6) Dementia in Alzheimer's disease with delusions (7) Dementia of the Alzheimer's type with early onset with behavioral disturbance (8) Major neurocognitive disorder (9) PTSD (post-traumatic stress disorder) DUANE NINO MD June 19, 2021 06:15
[2021-06-19 06:40] LABS: BASO % 1 % (0-3); EOS # 0.2 x10^3/uL (0.0-0.7); EOS % 6 % (0-3); HEMATOCRIT 36.1 % (39.0-53.0); HEMOGLOBIN 11.7 g/dL (13.0-17.5); LYMPH # 1.4 x10^3/uL (1.0-4.8); LYMPH % 37 % (24-48); MEAN CORPUSCULAR HEMOGLOBIN 29 pg (25-35); MEAN CORPUSCULAR HGB CONC 32 g/dL (31-37); MEAN CORPUSCULAR VOLUME 89 fL (79-100); MONO # 0.5 x10^3/uL (0.0-1.1); MONO % 14 % (0-9); NEUT # 1.7 x10^3uL (1.8-7.7); NEUT % 43 % (31-73); PLATELET COUNT 140 x10^3/uL (140-400); RED BLOOD COUNT 4.07 x10^6/uL (4.30-5.70); WHITE BLOOD COUNT 3.9 x10^3/uL (4.0-11.0)
[2021-06-19 06:55] LABS: CALCIUM 8.8 mg/dL (8.5-10.1); CREATININE 1.3 mg/dL (0.7-1.3); GFR 53.4; POTASSIUM 4.6 mmol/L (3.5-5.1); TOTAL BILIRUBIN 0.4 mg/dL (0.2-1.0); TOTAL PROTEIN 6.1 g/dL (6.4-8.2)
[2021-06-19] MEDS: LISINOPRIL 10 MG TABLET PO SCH (09:00)
[2021-06-19] MEDS: VALPROATE ACID 250 MG/5 ML ORAL SOLUTION PO SCH ×3 (09:00→20:22)
[2021-06-19] MEDS: FUROSEMIDE 20 MG TABLET PO SCH (09:00)
[2021-06-19] MEDS: DOCUSATE 100 MG/10 ML SOLUTION. PO SCH ×2 (09:00→20:21)
[2021-06-19] MEDS: PRAZOSIN 1 MG CAPSULE. PO SCH (09:00)
[2021-06-19] MEDS: POTASSIUM CHLORIDE 20 MEQ TABLET.ER. PO SCH (09:01)
[2021-06-19] MEDS: risperiDONE 0.25 MG TABLET. PO SCH ×3 (09:01→17:35)
[2021-06-19] MEDS: LIDOCAINE (700MG/PATCH) PATCH. TP SCH (09:02)
[2021-06-19 16:01] VITALS: BP 117/71
[2021-06-19] MEDS: PATCH REMOVAL. MC SCH (20:20)
[2021-06-19] MEDS: MIRTAZAPINE 7.5 MG TABLET. PO SCH (20:23)
[2021-06-19] MEDS: ACETAMINOPHEN 325 MG TABLET PO PRN ×2 (21:30→22:21)
--- NOTE | 2021-06-19 21:31 | PDOC ---
Exam Note: Raman Note: Please also refer to the separate dictated note~for this date of service dictated separately.~Patient seen individually. Discussed the patient with Nursing staff reviewed the chart.~Reviewed interim history and current functioning. Reviewed vital signs,~Labs/ Radiology~and current medications noted below. Continue current treatment with the changes noted in the dictated addendum note Assessment: Vital Signs/I&O: Vital Signs Date Time Temp Pulse Resp B/P (MAP) Pulse Ox O2 Delivery O2 Flow Rate FiO2 06/19/21 16:01 97.8 62 16 117/71 (86) 99 Room Air I & O 06/18/21 06/18/21 06/19/21 15:00 23:00 07:00 Intake Total 840 ml 0 ml Balance 840 ml 0 ml Labs: Laboratory Tests Test 06/19/21 06:04 White Blood Count 3.9 x10^3/uL (4.0-11.0) L Red Blood Count 4.07 x10^6/uL (4.30-5.70) L Hemoglobin 11.7 g/dL (13.0-17.5) L Hematocrit 36.1 % (39.0-53.0) L Mean Corpuscular Volume 89 fL (79-100) Mean Corpuscular Hemoglobin 29 pg (25-35) Mean Corpuscular Hemoglobin Concent 32 g/dL (31-37) Red Cell Distribution Width 14.0 % (11.5-14.5) Platelet Count 140 x10^3/uL (140-400) Neutrophils (%) (Auto) 43 % (31-73) Lymphocytes (%) (Auto) 37 % (24-48) Monocytes (%) (Auto) 14 % (0-9) H Eosinophils (%) (Auto) 6 % (0-3) H Basophils (%) (Auto) 1 % (0-3) Neutrophils # (Auto) 1.7 x10^3uL (1.8-7.7) L Lymphocytes # (Auto) 1.4 x10^3/uL (1.0-4.8) Monocytes # (Auto) 0.5 x10^3/uL (0.0-1.1) Eosinophils # (Auto) 0.2 x10^3/uL (0.0-0.7) Basophils # (Auto) 0.0 x10^3/uL (0.0-0.2) Sodium Level 143 mmol/L (136-145) Potassium Level 4.6 mmol/L (3.5-5.1) Chloride Level 107 mmol/L (98-107) Carbon Dioxide Level 31 mmol/L (21-32) Anion Gap 5 (6-14) L Blood Urea Nitrogen 31 mg/dL (8-26) H Creatinine 1.3 mg/dL (0.7-1.3) Estimated GFR (Cockcroft-Gault) 53.4 BUN/Creatinine Ratio 24 (6-20) H Glucose Level 90 mg/dL (70-99) Calcium Level 8.8 mg/dL (8.5-10.1) Total Bilirubin 0.4 mg/dL (0.2-1.0) Aspartate Amino Transferase (AST) 16 U/L (15-37) Alanine Aminotransferase (ALT) 23 U/L (16-63) Alkaline Phosphatase 47 U/L (46-116) Total Protein 6.1 g/dL (6.4-8.2) L Albumin 3.0 g/dL (3.4-5.0) L Albumin/Globulin Ratio 1.0 (1.0-1.7) Current Medications: Meds: Laboratory Tests Test 06/19/21 06:04 White Blood Count 3.9 x10^3/uL Red Blood Count 4.07 x10^6/uL Hemoglobin 11.7 g/dL Hematocrit 36.1 % Mean Corpuscular Volume 89 fL Mean Corpuscular Hemoglobin 29 pg Mean Corpuscular Hemoglobin Concent 32 g/dL Red Cell Distribution Width 14.0 % Platelet Count 140 x10^3/uL Neutrophils (%) (Auto) 43 % Lymphocytes (%) (Auto) 37 % Monocytes (%) (Auto) 14 % Eosinophils (%) (Auto) 6 % Basophils (%) (Auto) 1 % Neutrophils # (Auto) 1.7 x10^3uL Lymphocytes # (Auto) 1.4 x10^3/uL Monocytes # (Auto) 0.5 x10^3/uL Eosinophils # (Auto) 0.2 x10^3/uL Basophils # (Auto) 0.0 x10^3/uL Sodium Level 143 mmol/L Potassium Level 4.6 mmol/L Chloride Level 107 mmol/L Carbon Dioxide Level 31 mmol/L Anion Gap 5 Blood Urea Nitrogen 31 mg/dL Creatinine 1.3 mg/dL Estimated GFR (Cockcroft-Gault) 53.4 BUN/Creatinine Ratio 24 Glucose Level 90 mg/dL Calcium Level 8.8 mg/dL Total Bilirubin 0.4 mg/dL Aspartate Amino Transf (AST/SGOT) 16 U/L Alanine Aminotransferase (ALT/SGPT) 23 U/L Alkaline Phosphatase 47 U/L Total Protein 6.1 g/dL Albumin 3.0 g/dL Albumin/Globulin Ratio 1.0 Current Medications Medications (Trade) Dose Ordered Sig/Abundio Route PRN Reason Start Time Stop Time Status Last Admin Dose Admin Acetaminophen (Tylenol) 650 mg PRN Q6HRS PRN PO MILD PAIN / TEMP > 100.3'F 06/13/21 11:00 06/13/21 11:08 DC Multi-Ingredient Ointment (Analgesic [place]) 1 will PRN QID PRN TP 2ND CHOICE MUSCLE PAIN 06/13/21 11:00 Al Hydroxide/Mg Hydroxide (Mylanta Plus Xs) 15 ml PRN AFTMEALHC PRN PO DYSPEPSIA 06/13/21 11:00 06/13/21 11:08 DC Magnesium Hydroxide (Milk Of Magnesia) 2,400 mg PRN QHS PRN PO CONSTIPATION 06/13/21 11:00 06/13/21 11:08 DC Acetaminophen (Tylenol) 650 mg PRN Q6HRS PRN PO MILD PAIN / TEMP > 100.3'F 06/13/21 12:45 06/19/21 21:30 Bisacodyl (Fleet Bisacodyl) 10 mg PRN DAILY PRN RC 2nd choice CONSTIPATION 06/13/21 12:45 Diclofenac Sodium (Voltaren) 1 will PRN BID PRN TP 1st choice muscle PAIN 06/13/21 12:45 06/14/21 02:04 Divalproex Sodium (Depakote Er) 250 mg TID PO 06/13/21 14:00 06/14/21 13:29 DC 06/14/21 09:00 Furosemide (Lasix) 20 mg DAILY PO 06/14/21 09:00 06/19/21 09:00 Lidocaine (Lidoderm) 1 patch PRN DAILY PRN TP muscle PAIN 06/13/21 12:45 06/15/21 10:37 DC 06/14/21 06:39 Lisinopril (Prinivil) 10 mg DAILY PO 06/14/21 09:00 06/18/21 08:39 Al Hydroxide/Mg Hydroxide (Mylanta Plus Xs) 15 ml PRN AFTMEALHC PRN PO DYSPEPSIA 06/13/21 12:45 Potassium Chloride (Klor-Con) 20 meq DAILY PO 06/14/21 09:00 06/19/21 09:01 Prazosin HCl (Minipress) 3 mg DAILY PO 06/14/21 09:00 06/18/21 08:40 Quetiapine Fumarate (SEROquel) 100 mg 0900,1400 PO 06/13/21 14:00 06/18/21 16:54 DC 06/18/21 14:09 Quetiapine Fumarate (SEROquel) 1,250 mg PRN Q8HRS PRN PO 3RD CHOICE FOR ANXIETY 06/13/21 12:45 06/13/21 13:24 DC Quetiapine Fumarate (SEROquel) 200 mg QHS PO 06/13/21 21:00 06/18/21 16:54 DC 06/17/21 20:01 Artificial Tears (Artificial Tears) 1 drop PRN DAILY PRN OU DRY EYE 06/13/21 13:30 Docusate Sodium (Colace) 100 mg BID PO 06/13/21 21:00 06/15/21 21:58 DC 06/15/21 20:31 Loperamide HCl (Imodium) 2 mg PRN QID PRN PO DIARRHEA 06/13/21 13:15 Magnesium Hydroxide (Milk Of Magnesia) 2,400 mg PRN QHS PRN PO 1st choice CONSTIPATION 06/13/21 13:15 Non-Formulary Medication (Methyl Salicylate/ Menthol (Bengay Greaseless Cream)) 1 will PRN QID PRN TP MUSCLE PAIN 06/13/21 12:45 UNV Quetiapine Fumarate (SEROquel) 25 mg PRN Q8HRS PRN PO ANXIETY 06/13/21 14:00 06/17/21 17:39 DC 06/17/21 12:06 Divalproex Sodium (Depakote Sprinkles) 250 mg TID PO 06/14/21 14:00 06/15/21 21:58 DC 06/15/21 20:31 Fluvoxamine Maleate (Luvox) 25 mg DAILY PO 06/15/21 09:00 06/19/21 09:00 Lidocaine (Lidoderm) 1 patch DAILY TP 06/15/21 11:00 06/19/21 09:02 Miscellaneous (Lidoderm Patch Removal) 1 ea QHS MC 06/15/21 21:00 06/19/21 20:20 Valproic Acid (Depakene) 250 mg [id number] PO 06/16/21 09:00 06/18/21 16:54 DC 06/18/21 14:09 Docusate Sodium (Colace Solution) 100 mg BID PO 06/16/21 09:00 06/19/21 20:21 Mirtazapine (Remeron) 7.5 mg QHS PO 06/15/21 22:45 06/19/21 20:23 Trazodone HCl (Desyrel) 50 mg PRN QHS PRN PO INSOMNIA, MAY REPEAT X1 06/15/21 22:45 06/18/21 19:59 Olanzapine (ZyPREXA ZYDIS) 2.5 mg PRN Q2HRS PRN PO PSYCHOSIS 06/17/21 17:45 06/18/21 19:59 Valproic Acid (Depakene) 250 mg 0900,1400 PO 06/19/21 09:00 06/19/21 13:05 Valproic Acid (Depakene) 500 mg QHS PO 06/18/21 21:00 06/19/21 20:22 Risperidone (RisperDAL) 0.25 mg 0900,1300,1700 PO 06/18/21 17:00 06/19/21 17:35 Current Medications Medications (Trade) Dose Ordered Sig/Abundio Route PRN Reason Start Time Stop Time Status Last Admin Dose Admin Valproic Acid (Depakene) 250 mg 0900,1400 PO 06/19/21 09:00 06/19/21 13:05 I have reviewed the current psychotropics carefully including drug interactions. Risk benefit ratio favors no change other than as noted in my dictated progress note. 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
[2021-06-19] MEDS: traZODone 50 MG TABLET. PO PRN (22:41)
[2021-06-20 05:59] VITALS: BP 100/58
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
[2021-06-20] MEDS: DOCUSATE 100 MG/10 ML SOLUTION. PO SCH ×2 (08:08→19:59)
[2021-06-20] MEDS: VALPROATE ACID 250 MG/5 ML ORAL SOLUTION PO SCH ×3 (08:09→20:00)
[2021-06-20] MEDS: risperiDONE 0.25 MG TABLET. PO SCH ×3 (08:09→17:09)
[2021-06-20] MEDS: POTASSIUM CHLORIDE 20 MEQ TABLET.ER. PO SCH (08:10)
[2021-06-20] MEDS: FUROSEMIDE 20 MG TABLET PO SCH (08:10)
[2021-06-20] MEDS: LISINOPRIL 10 MG TABLET PO SCH (08:15)
[2021-06-20] MEDS: PRAZOSIN 1 MG CAPSULE. PO SCH (08:15)
[2021-06-20] MEDS: LIDOCAINE (700MG/PATCH) PATCH. TP SCH (08:18)
[2021-06-20 16:15] VITALS: BP 111/62
[2021-06-20] MEDS ORDERED: ONDANSETRON ODT 4 MG TAB.RAPDIS PO PRN (16:15)
[2021-06-20] MEDS: PATCH REMOVAL. MC SCH (19:59)
[2021-06-20] MEDS: MIRTAZAPINE 7.5 MG TABLET. PO SCH (20:01)
--- NOTE | 2021-06-20 21:40 | PDOC ---
Exam Note: Raman Note: Please also refer to the separate dictated note~for this date of service dictated separately.~Patient seen individually. Discussed the patient with Nursing staff reviewed the chart.~Reviewed interim history and current functioning. Reviewed vital signs,~Labs/ Radiology~and current medications noted below. Continue current treatment with the changes noted in the dictated addendum note Assessment: Vital Signs/I&O: Vital Signs Date Time Temp Pulse Resp B/P (MAP) Pulse Ox O2 Delivery O2 Flow Rate FiO2 06/20/21 16:15 98.0 76 20 111/62 (78) 96 06/19/21 16:01 Room Air I & O 06/19/21 06/19/21 06/20/21 15:00 23:00 07:00 Intake Total 240 ml 480 ml Balance 240 ml 480 ml Current Medications: Meds: Current Medications Medications (Trade) Dose Ordered Sig/Abundio Route PRN Reason Start Time Stop Time Status Last Admin Dose Admin Acetaminophen (Tylenol) 650 mg PRN Q6HRS PRN PO MILD PAIN / TEMP > 100.3'F 06/13/21 11:00 06/13/21 11:08 DC Multi-Ingredient Ointment (Analgesic [place]) 1 will PRN QID PRN TP 2ND CHOICE MUSCLE PAIN 06/13/21 11:00 Al Hydroxide/Mg Hydroxide (Mylanta Plus Xs) 15 ml PRN AFTMEALHC PRN PO DYSPEPSIA 06/13/21 11:00 06/13/21 11:08 DC Magnesium Hydroxide (Milk Of Magnesia) 2,400 mg PRN QHS PRN PO CONSTIPATION 06/13/21 11:00 06/13/21 11:08 DC Acetaminophen (Tylenol) 650 mg PRN Q6HRS PRN PO MILD PAIN / TEMP > 100.3'F 06/13/21 12:45 06/19/21 22:21 Bisacodyl (Fleet Bisacodyl) 10 mg PRN DAILY PRN RC 2nd choice CONSTIPATION 06/13/21 12:45 Diclofenac Sodium (Voltaren) 1 will PRN BID PRN TP 1st choice muscle PAIN 06/13/21 12:45 06/14/21 02:04 Divalproex Sodium (Depakote Er) 250 mg TID PO 06/13/21 14:00 06/14/21 13:29 DC 06/14/21 09:00 Furosemide (Lasix) 20 mg DAILY PO 06/14/21 09:00 06/20/21 08:10 Lidocaine (Lidoderm) 1 patch PRN DAILY PRN TP muscle PAIN 06/13/21 12:45 06/15/21 10:37 DC 06/14/21 06:39 Lisinopril (Prinivil) 10 mg DAILY PO 06/14/21 09:00 06/20/21 08:15 Al Hydroxide/Mg Hydroxide (Mylanta Plus Xs) 15 ml PRN AFTMEALHC PRN PO DYSPEPSIA 06/13/21 12:45 Potassium Chloride (Klor-Con) 20 meq DAILY PO 06/14/21 09:00 06/20/21 08:10 Prazosin HCl (Minipress) 3 mg DAILY PO 06/14/21 09:00 06/20/21 08:15 Quetiapine Fumarate (SEROquel) 100 mg 0900,1400 PO 06/13/21 14:00 06/18/21 16:54 DC 06/18/21 14:09 Quetiapine Fumarate (SEROquel) 1,250 mg PRN Q8HRS PRN PO 3RD CHOICE FOR ANXIETY 06/13/21 12:45 06/13/21 13:24 DC Quetiapine Fumarate (SEROquel) 200 mg QHS PO 06/13/21 21:00 06/18/21 16:54 DC 06/17/21 20:01 Artificial Tears (Artificial Tears) 1 drop PRN DAILY PRN OU DRY EYE 06/13/21 13:30 Docusate Sodium (Colace) 100 mg BID PO 06/13/21 21:00 06/15/21 21:58 DC 06/15/21 20:31 Loperamide HCl (Imodium) 2 mg PRN QID PRN PO DIARRHEA 06/13/21 13:15 Magnesium Hydroxide (Milk Of Magnesia) 2,400 mg PRN QHS PRN PO 1st choice CONSTIPATION 06/13/21 13:15 Non-Formulary Medication (Methyl Salicylate/ Menthol (Bengay Greaseless Cream)) 1 will PRN QID PRN TP MUSCLE PAIN 06/13/21 12:45 UNV Quetiapine Fumarate (SEROquel) 25 mg PRN Q8HRS PRN PO ANXIETY 06/13/21 14:00 5/2/22 17:39 DC 06/17/21 12:06 Divalproex Sodium (Depakote Sprinkles) 250 mg TID PO 06/14/21 14:00 06/15/21 21:58 DC 06/15/21 20:31 Fluvoxamine Maleate (Luvox) 25 mg DAILY PO 06/15/21 09:00 06/20/21 08:09 Lidocaine (Lidoderm) 1 patch DAILY TP 06/15/21 11:00 06/19/21 09:02 Miscellaneous (Lidoderm Patch Removal) 1 ea QHS MC 06/15/21 21:00 06/20/21 19:59 Valproic Acid (Depakene) 250 mg [id number] PO 06/16/21 09:00 06/18/21 16:54 DC 06/18/21 14:09 Docusate Sodium (Colace Solution) 100 mg BID PO 06/16/21 09:00 06/20/21 19:59 Mirtazapine (Remeron) 7.5 mg QHS PO 06/15/21 22:45 06/20/21 20:01 Trazodone HCl (Desyrel) 50 mg PRN QHS PRN PO INSOMNIA, MAY REPEAT X1 06/15/21 22:45 06/19/21 22:41 Olanzapine (ZyPREXA ZYDIS) 2.5 mg PRN Q2HRS PRN PO PSYCHOSIS 06/17/21 17:45 06/18/21 19:59 Valproic Acid (Depakene) 250 mg 0900,1400 PO 06/19/21 09:00 06/20/21 12:57 Valproic Acid (Depakene) 500 mg QHS PO 06/18/21 21:00 06/20/21 20:00 Risperidone (RisperDAL) 0.25 mg 0900,1300,1700 PO 06/18/21 17:00 06/20/21 17:09 Ondansetron HCl (Zofran Odt) 4 mg PRN Q8HRS PRN PO NAUSEA/VOMITING 06/20/21 16:15 I have reviewed the current psychotropics carefully including drug interactions. Risk benefit ratio favors no change other than as noted in my dictated progress note. Diagnosis: Problems: (1) Impulse control disorder, unspecified (2) Anxiety disorder, unspecified (3) Dementia, vascular, with depression (4) Dementia, vascular, with delusions (5) Dementia in Alzheimer's disease with depression (6) Dementia in Alzheimer's disease with delusions (7) Dementia of the Alzheimer's type with early onset with behavioral disturbanc e (8) Major neurocognitive disorder (9) PTSD (post-traumatic stress disorder) DUANE NINO MD June 20, 2021 21:40
[2021-06-20] MEDS: ACETAMINOPHEN 325 MG TABLET PO PRN (22:40)
[2021-06-20] MEDS: traZODone 50 MG TABLET. PO PRN (22:40)
[2021-06-21] MEDS ORDERED: MELATONIN 3 MG TABLET PO PRN (00:45)
[2021-06-21 05:49] VITALS: BP 139/58
[2021-06-21 06:47] LABS: BASO # 0.1 x10^3/uL (0.0-0.2); BASO % 1 % (0-3); EOS # 0.2 x10^3/uL (0.0-0.7); EOS % 5 % (0-3); HEMATOCRIT 38.2 % (39.0-53.0); HEMOGLOBIN 12.5 g/dL (13.0-17.5); LYMPH # 1.4 x10^3/uL (1.0-4.8); LYMPH % 33 % (24-48); MEAN CORPUSCULAR HEMOGLOBIN 29 pg (25-35); MEAN CORPUSCULAR HGB CONC 33 g/dL (31-37); MEAN CORPUSCULAR VOLUME 88 fL (79-100); MONO # 0.7 x10^3/uL (0.0-1.1); MONO % 17 % (0-9); NEUT # 1.8 x10^3uL (1.8-7.7); NEUT % 43 % (31-73); PLATELET COUNT 161 x10^3/uL (140-400); RED BLOOD COUNT 4.34 x10^6/uL (4.30-5.70); RED CELL DISTRIBUTION WIDTH 14.3 % (11.5-14.5); WHITE BLOOD COUNT 4.2 x10^3/uL (4.0-11.0)
[2021-06-21 07:00] LABS: ALBUMIN 3.6 g/dL (3.4-5.0); ALK PHOS 57 U/L (46-116); ALT (SGPT) 30 U/L (16-63); ANION GAP 7 (6-14); AST (SGOT) 19 U/L (15-37); BLOOD UREA NITROGEN 34 mg/dL (8-26); BUN/CREATININE RATIO 28 (6-20); CALCIUM 8.8 mg/dL (8.5-10.1); CARBON DIOXIDE 30 mmol/L (21-32); CHLORIDE 107 mmol/L (98-107); CREATININE 1.2 mg/dL (0.7-1.3); GFR 58.6; GLUCOSE 86 mg/dL (70-99); POTASSIUM 4.2 mmol/L (3.5-5.1); SODIUM 144 mmol/L (136-145); TOTAL BILIRUBIN 0.3 mg/dL (0.2-1.0); TOTAL PROTEIN 7.2 g/dL (6.4-8.2)
[2021-06-21 07:02] LABS: VAL ACID 48 mcg/mL (50-100)
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
[2021-06-21] MEDS: DOCUSATE 100 MG/10 ML SOLUTION. PO SCH ×2 (07:54→21:04)
[2021-06-21] MEDS: PRAZOSIN 1 MG CAPSULE. PO SCH (07:54)
[2021-06-21] MEDS: LISINOPRIL 10 MG TABLET PO SCH (07:54)
[2021-06-21] MEDS: VALPROATE ACID 250 MG/5 ML ORAL SOLUTION PO SCH ×3 (07:54→21:05)
[2021-06-21] MEDS: risperiDONE 0.25 MG TABLET. PO SCH ×3 (07:55→17:27)
[2021-06-21] MEDS: FUROSEMIDE 20 MG TABLET PO SCH (07:55)
[2021-06-21] MEDS: POTASSIUM CHLORIDE 20 MEQ TABLET.ER. PO SCH (07:55)
[2021-06-21] MEDS: LIDOCAINE (700MG/PATCH) PATCH. TP SCH (07:56)
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
[2021-06-21 15:53] VITALS: BP 98/57
[2021-06-21] MEDS: MELATONIN 3 MG TABLET PO SCH ×2 (21:00→21:05)
[2021-06-21] MEDS: PATCH REMOVAL. MC SCH (21:00)
[2021-06-21] MEDS: traZODone 100 MG TABLET. PO PRN (21:04)
[2021-06-21] MEDS: MIRTAZAPINE 7.5 MG TABLET. PO SCH (21:04)
--- NOTE | 2021-06-21 21:35 | PDOC ---
Exam Note: Raman Note: Please also refer to the separate dictated note~for this date of service dictated separately.~Patient seen individually. Discussed the patient with Nursing staff reviewed the chart.~Reviewed interim history and current functioning. Reviewed vital signs,~Labs/ Radiology~and current medications noted below. Continue current treatment with the changes noted in the dictated addendum note Assessment: Vital Signs/I&O: Vital Signs Date Time Temp Pulse Resp B/P (MAP) Pulse Ox O2 Delivery O2 Flow Rate FiO2 06/21/21 15:53 98.5 82 20 98/57 (71) 97 06/19/21 16:01 Room Air I & O 06/20/21 06/20/21 06/21/21 15:00 23:00 07:00 Intake Total 600 ml 240 ml 150 ml Balance 600 ml 240 ml 150 ml Labs: Laboratory Tests Test 06/21/21 06:18 White Blood Count 4.2 x10^3/uL (4.0-11.0) Red Blood Count 4.34 x10^6/uL (4.30-5.70) Hemoglobin 12.5 g/dL (13.0-17.5) L Hematocrit 38.2 % (39.0-53.0) L Mean Corpuscular Volume 88 fL (79-100) Mean Corpuscular Hemoglobin 29 pg (25-35) Mean Corpuscular Hemoglobin Concent 33 g/dL (31-37) Red Cell Distribution Width 14.3 % (11.5-14.5) Platelet Count 161 x10^3/uL (140-400) Neutrophils (%) (Auto) 43 % (31-73) Lymphocytes (%) (Auto) 33 % (24-48) Monocytes (%) (Auto) 17 % (0-9) H Eosinophils (%) (Auto) 5 % (0-3) H Basophils (%) (Auto) 1 % (0-3) Neutrophils # (Auto) 1.8 x10^3uL (1.8-7.7) Lymphocytes # (Auto) 1.4 x10^3/uL (1.0-4.8) Monocytes # (Auto) 0.7 x10^3/uL (0.0-1.1) Eosinophils # (Auto) 0.2 x10^3/uL (0.0-0.7) Basophils # (Auto) 0.1 x10^3/uL (0.0-0.2) Sodium Level 144 mmol/L (136-145) Potassium Level 4.2 mmol/L (3.5-5.1) Chloride Level 107 mmol/L (98-107) Carbon Dioxide Level 30 mmol/L (21-32) Anion Gap 7 (6-14) Blood Urea Nitrogen 34 mg/dL (8-26) H Creatinine 1.2 mg/dL (0.7-1.3) Estimated GFR (Cockcroft-Gault) 58.6 BUN/Creatinine Ratio 28 (6-20) H Glucose Level 86 mg/dL (70-99) Calcium Level 8.8 mg/dL (8.5-10.1) Total Bilirubin 0.3 mg/dL (0.2-1.0) Aspartate Amino Transferase (AST) 19 U/L (15-37) Alanine Aminotransferase (ALT) 30 U/L (16-63) Alkaline Phosphatase 57 U/L (46-116) Ammonia 52 mcmol/L (11-34) H Total Protein 7.2 g/dL (6.4-8.2) Albumin 3.6 g/dL (3.4-5.0) Albumin/Globulin Ratio 1.0 (1.0-1.7) Valproic Acid Level 48 mcg/mL (50-100) L Valproic Acid Last Dose Date 06/20/21 Valproic Acid Last Dose Time 2100 Current Medications: Meds: Laboratory Tests Test 06/21/21 06:18 White Blood Count 4.2 x10^3/uL Red Blood Count 4.34 x10^6/uL Hemoglobin 12.5 g/dL Hematocrit 38.2 % Mean Corpuscular Volume 88 fL Mean Corpuscular Hemoglobin 29 pg Mean Corpuscular Hemoglobin Concent 33 g/dL Red Cell Distribution Width 14.3 % Platelet Count 161 x10^3/uL Neutrophils (%) (Auto) 43 % Lymphocytes (%) (Auto) 33 % Monocytes (%) (Auto) 17 % Eosinophils (%) (Auto) 5 % Basophils (%) (Auto) 1 % Neutrophils # (Auto) 1.8 x10^3uL Lymphocytes # (Auto) 1.4 x10^3/uL Monocytes # (Auto) 0.7 x10^3/uL Eosinophils # (Auto) 0.2 x10^3/uL Basophils # (Auto) 0.1 x10^3/uL Sodium Level 144 mmol/L Potassium Level 4.2 mmol/L Chloride Level 107 mmol/L Carbon Dioxide Level 30 mmol/L Anion Gap 7 Blood Urea Nitrogen 34 mg/dL Creatinine 1.2 mg/dL Estimated GFR (Cockcroft-Gault) 58.6 BUN/Creatinine Ratio 28 Glucose Level 86 mg/dL Calcium Level 8.8 mg/dL Total Bilirubin 0.3 mg/dL Aspartate Amino Transf (AST/SGOT) 19 U/L Alanine Aminotransferase (ALT/SGPT) 30 U/L Alkaline Phosphatase 57 U/L Ammonia 52 mcmol/L Total Protein 7.2 g/dL Albumin 3.6 g/dL Albumin/Globulin Ratio 1.0 Valproic Acid (Depakene) Level 48 mcg/mL Valproic Acid Last Dose Date 06/20/21 Valproic Acid Last Dose Time 2100 Current Medications Medications (Trade) Dose Ordered Sig/Abundio Route PRN Reason Start Time Stop Time Status Last Admin Dose Admin Acetaminophen (Tylenol) 650 mg PRN Q6HRS PRN PO MILD PAIN / TEMP > 100.3'F 06/13/21 11:00 06/13/21 11:08 DC Multi-Ingredient Ointment (Analgesic [place]) 1 will PRN QID PRN TP 2ND CHOICE MUSCLE PAIN 06/13/21 11:00 Al Hydroxide/Mg Hydroxide (Mylanta Plus Xs) 15 ml PRN AFTMEALHC PRN PO DYSPEPSIA 06/13/21 11:00 06/13/21 11:08 DC Magnesium Hydroxide (Milk Of Magnesia) 2,400 mg PRN QHS PRN PO CONSTIPATION 06/13/21 11:00 06/13/21 11:08 DC Acetaminophen (Tylenol) 650 mg PRN Q6HRS PRN PO MILD PAIN / TEMP > 100.3'F 06/13/21 12:45 06/20/21 22:40 Bisacodyl (Fleet Bisacodyl) 10 mg PRN DAILY PRN RC 2nd choice CONSTIPATION 06/13/21 12:45 Diclofenac Sodium (Voltaren) 1 will PRN BID PRN TP 1st choice muscle PAIN 06/13/21 12:45 06/14/21 02:04 Divalproex Sodium (Depakote Er) 250 mg TID PO 06/13/21 14:00 06/14/21 13:29 DC 06/14/21 09:00 Furosemide (Lasix) 20 mg DAILY PO 06/14/21 09:00 06/21/21 07:55 Lidocaine (Lidoderm) 1 patch PRN DAILY PRN TP muscle PAIN 06/13/21 12:45 06/15/21 10:37 DC 06/14/21 06:39 Lisinopril (Prinivil) 10 mg DAILY PO 06/14/21 09:00 06/21/21 07:54 Al Hydroxide/Mg Hydroxide (Mylanta Plus Xs) 15 ml PRN AFTMEALHC PRN PO DYSPEPSIA 06/13/21 12:45 Potassium Chloride (Klor-Con) 20 meq DAILY PO 06/14/21 09:00 06/21/21 07:55 Prazosin HCl (Minipress) 3 mg DAILY PO 06/14/21 09:00 06/21/21 07:54 Quetiapine Fumarate (SEROquel) 100 mg 0900,1400 PO 06/13/21 14:00 06/18/21 16:54 DC 06/18/21 14:09 Quetiapine Fumarate (SEROquel) 1,250 mg PRN Q8HRS PRN PO 3RD CHOICE FOR ANXIETY 06/13/21 12:45 06/13/21 13:24 DC Quetiapine Fumarate (SEROquel) 200 mg QHS PO 06/13/21 21:00 06/18/21 16:54 DC 06/17/21 20:01 Artificial Tears (Artificial Tears) 1 drop PRN DAILY PRN OU DRY EYE 06/13/21 13:30 Docusate Sodium (Colace) 100 mg BID PO 06/13/21 21:00 06/15/21 21:58 DC 06/15/21 20:31 Loperamide HCl (Imodium) 2 mg PRN QID PRN PO DIARRHEA 06/13/21 13:15 Magnesium Hydroxide (Milk Of Magnesia) 2,400 mg PRN QHS PRN PO 1st choice CONSTIPATION 06/13/21 13:15 Non-Formulary Medication (Methyl Salicylate/ Menthol (Bengay Greaseless Cream)) 1 will PRN QID PRN TP MUSCLE PAIN 06/13/21 12:45 UNV Quetiapine Fumarate (SEROquel) 25 mg PRN Q8HRS PRN PO ANXIETY 06/13/21 14:00 06/17/21 17:39 DC 06/17/21 12:06 Divalproex Sodium (Depakote Sprinkles) 250 mg TID PO 06/14/21 14:00 06/15/21 21:58 DC 06/15/21 20:31 Fluvoxamine Maleate (Luvox) 25 mg DAILY PO 06/15/21 09:00 06/21/21 07:55 Lidocaine (Lidoderm) 1 patch DAILY TP 06/15/21 11:00 06/21/21 07:56 Miscellaneous (Lidoderm Patch Removal) 1 ea QHS MC 06/15/21 21:00 06/21/21 21:00 Valproic Acid (Depakene) 250 mg [id number] PO 06/16/21 09:00 06/18/21 16:54 DC 06/18/21 14:09 Docusate Sodium (Colace Solution) 100 mg BID PO 06/16/21 09:00 06/21/21 21:04 Mirtazapine (Remeron) 7.5 mg QHS PO 06/15/21 22:45 06/21/21 21:04 Trazodone HCl (Desyrel) 50 mg PRN QHS PRN PO INSOMNIA, MAY REPEAT X1 06/15/21 22:45 06/21/21 20:02 DC 06/20/21 22:40 Olanzapine (ZyPREXA ZYDIS) 2.5 mg PRN Q2HRS PRN PO PSYCHOSIS 06/17/21 17:45 06/18/21 19:59 Valproic Acid (Depakene) 250 mg 0900,1400 PO 06/19/21 09:00 06/21/21 13:50 Valproic Acid (Depakene) 500 mg QHS PO 06/18/21 21:00 06/21/21 21:05 Risperidone (RisperDAL) 0.25 mg 0900,1300,1700 PO 06/18/21 17:00 06/21/21 17:27 Ondansetron HCl (Zofran Odt) 4 mg PRN Q8HRS PRN PO NAUSEA/VOMITING 06/20/21 16:15 Melatonin (Melatonin) 3 mg PRN QHS PRN PO INSOMNIA 06/21/21 00:45 06/21/21 20:02 DC 06/21/21 00:59 Meloxicam (Mobic) 7.5 mg DAILY PO 06/22/21 09:00 Melatonin (Melatonin) 3 mg QHS PO 06/21/21 20:00 06/21/21 21:00 Trazodone HCl (Desyrel) 100 mg PRN QHS PRN PO INSOMNIA, MAY REPEAT X1 06/21/21 20:15 06/21/21 21:04 Current Medications Medications (Trade) Dose Ordered Sig/Abundio Route PRN Reason Start Time Stop Time Status Last Admin Dose Admin Melatonin (Melatonin) 3 mg PRN QHS PRN PO INSOMNIA 06/21/21 00:45 06/21/21 20:02 DC 06/21/21 00:59 Melatonin (Melatonin) 3 mg QHS PO 06/21/21 20:00 06/21/21 21:00 Trazodone HCl (Desyrel) 100 mg PRN QHS PRN PO INSOMNIA, MAY REPEAT X1 06/21/21 20:15 06/21/21 21:04 I have reviewed the current psychotropics carefully including drug interactions. Risk benefit ratio favors no change other than as noted in my dictated progress note. Diagnosis: Problems: (1) Impulse control disorder, unspecified (2) Anxiety disorder, unspecified (3) Dementia, vascular, with depression (4) Dementia, vascular, with delusions (5) Dementia in Alzheimer's disease with depression (6) Dementia in Alzheimer's disease with delusions (7) Dementia of the Alzheimer's type with early onset with behavioral disturbance (8) Major neurocognitive disorder (9) PTSD (post-traumatic stress disorder) DUANE NINO MD June 21, 2021 21:35
[2021-06-22 06:12] VITALS: BP 105/60
[2021-06-22] MEDS: DOCUSATE 100 MG/10 ML SOLUTION. PO SCH ×2 (07:41→19:47)
[2021-06-22] MEDS: VALPROATE ACID 250 MG/5 ML ORAL SOLUTION PO SCH ×3 (07:41→19:47)
[2021-06-22] MEDS: LISINOPRIL 10 MG TABLET PO SCH (07:42)
[2021-06-22] MEDS: POTASSIUM CHLORIDE 20 MEQ TABLET.ER. PO SCH (07:42)
[2021-06-22] MEDS: risperiDONE 0.25 MG TABLET. PO SCH ×3 (07:42→17:05)
[2021-06-22] MEDS: PRAZOSIN 1 MG CAPSULE. PO SCH (07:42)
[2021-06-22] MEDS: LIDOCAINE (700MG/PATCH) PATCH. TP SCH (07:43)
[2021-06-22] MEDS: MELOXICAM 7.5 MG TABLET PO SCH (07:43)
[2021-06-22] MEDS: FUROSEMIDE 20 MG TABLET PO SCH (07:44)
[2021-06-22] MEDS: PATCH REMOVAL. MC SCH (17:05)
[2021-06-22 17:20] VITALS: BP 102/66
[2021-06-22] MEDS: MIRTAZAPINE 7.5 MG TABLET. PO SCH (19:48)
[2021-06-22] MEDS: traZODone 100 MG TABLET. PO PRN (19:48)
[2021-06-22] MEDS: MELATONIN 3 MG TABLET PO SCH (19:48)
--- NOTE | 2021-06-22 21:52 | PDOC ---
Exam Note: Raman Note: This note is a late entry for 06/21/2021 covers elements not covered in my initial note. Subjective: The patient was seen individually on 06/21/2021, discussed and reviewed the chart with Bere MONTEMAYOR. The patient slept 1 hour previous night. Valproic acid level is 48, ammonia is 52 somewhat elevated. We will repeat it in 3 days. Overall he remains confused, wanders the hallway, less paranoid. I did get called by the nursing staff around midnight as the patient was not sleeping. We did add melatonin 3 mg h.s. and he still did not sleep very much. We will increase the trazodone to 100 mg h.s. p.r.n., may repeat x1 for insomnia. Review of Systems: No CV, , pulmonary, eye system symptoms on review. Reliability poor. Mental Status Exam: Patient is oriented to himself. Insight and judgment, recent and remote memory, attention and concentration, fund of knowledge is poor consistent with his diagnosis. Laboratory Data: Reviewed. Impression: Major neurocognitive disorder, Alzheimer, vascular with delusion, depression, behavioral disturbance. Anxiety disorder unspecified. Impulse control disorder unspecified. Plan: Continue current psychotropics. Reviewed drug interactions and risk- benefit ratio. We will adjust medications and check labs as noted above. We may consider increasing Luvox in due course. Assessment: Vital Signs/I&O: Vital Signs Date Time Temp Pulse Resp B/P (MAP) Pulse Ox O2 Delivery O2 Flow Rate FiO2 06/22/21 17:20 97.6 88 20 102/66 (78) 97 Room Air I & O 06/21/21 06/21/21 06/22/21 15:00 23:00 07:00 Intake Total 540 ml 480 ml Balance 540 ml 480 ml Current Medications: Meds: Current Medications Medications (Trade) Dose Ordered Sig/Abundio Route PRN Reason Start Time Stop Time Status Last Admin Dose Admin Meloxicam (Mobic) 7.5 mg DAILY PO 06/22/21 09:00 06/22/21 07:43 I have reviewed the current psychotropics carefully including drug interactions. Risk benefit ratio favors no change other than as noted in my dictated progress note. Diagnosis: Problems: (1) Impulse control disorder, unspecified (2) Anxiety disorder, unspecified (3) Dementia, vascular, with depression (4) Dementia, vascular, with delusions (5) Dementia in Alzheimer's disease with depression (6) Dementia in Alzheimer's disease with delusions (7) Dementia of the Alzheimer's type with early onset with behavioral disturbance (8) Major neurocognitive disorder (9) PTSD (post-traumatic stress disorder) DUANE NINO MD June 22, 2021 21:52
--- NOTE | 2021-06-22 21:53 | PDOC ---
Exam Note: Raman Note: Please also refer to the separate dictated note~for this date of service dictated separately.~Patient seen individually. Discussed the patient with Nursing staff reviewed the chart.~Reviewed interim history and current functioning. Reviewed vital signs,~Labs/ Radiology~and current medications noted below. Continue current treatment with the changes noted in the dictated addendum note Assessment: Vital Signs/I&O: Vital Signs Date Time Temp Pulse Resp B/P (MAP) Pulse Ox O2 Delivery O2 Flow Rate FiO2 06/22/21 17:20 97.6 88 20 102/66 (78) 97 Room Air I & O 06/21/21 06/21/21 06/22/21 15:00 23:00 07:00 Intake Total 540 ml 480 ml Balance 540 ml 480 ml Current Medications: Meds: Current Medications Medications (Trade) Dose Ordered Sig/Abundio Route PRN Reason Start Time Stop Time Status Last Admin Dose Admin Acetaminophen (Tylenol) 650 mg PRN Q6HRS PRN PO MILD PAIN / TEMP > 100.3'F 06/13/21 11:00 06/13/21 11:08 DC Multi-Ingredient Ointment (Analgesic [place]) 1 will PRN QID PRN TP 2ND CHOICE MUSCLE PAIN 06/13/21 11:00 Al Hydroxide/Mg Hydroxide (Mylanta Plus Xs) 15 ml PRN AFTMEALHC PRN PO DYSPEPSIA 06/13/21 11:00 06/13/21 11:08 DC Magnesium Hydroxide (Milk Of Magnesia) 2,400 mg PRN QHS PRN PO CONSTIPATION 06/13/21 11:00 06/13/21 11:08 DC Acetaminophen (Tylenol) 650 mg PRN Q6HRS PRN PO MILD PAIN / TEMP > 100.3'F 06/13/21 12:45 06/20/21 22:40 Bisacodyl (Fleet Bisacodyl) 10 mg PRN DAILY PRN RC 2nd choice CONSTIPATION 06/13/21 12:45 Diclofenac Sodium (Voltaren) 1 will PRN BID PRN TP 1st choice muscle PAIN 06/13/21 12:45 06/14/21 02:04 Divalproex Sodium (Depakote Er) 250 mg TID PO 06/13/21 14:00 06/14/21 13:29 DC 06/14/21 09:00 Furosemide (Lasix) 20 mg DAILY PO 06/14/21 09:00 06/22/21 07:44 Lidocaine (Lidoderm) 1 patch PRN DAILY PRN TP muscle PAIN 06/13/21 12:45 06/15/21 10:37 DC 06/14/21 06:39 Lisinopril (Prinivil) 10 mg DAILY PO 06/14/21 09:00 06/22/21 07:42 Al Hydroxide/Mg Hydroxide (Mylanta Plus Xs) 15 ml PRN AFTMEALHC PRN PO DYSPEPSIA 06/13/21 12:45 Potassium Chloride (Klor-Con) 20 meq DAILY PO 06/14/21 09:00 06/22/21 07:42 Prazosin HCl (Minipress) 3 mg DAILY PO 06/14/21 09:00 06/22/21 07:42 Quetiapine Fumarate (SEROquel) 100 mg 0900,1400 PO 06/13/21 14:00 06/18/21 16:54 DC 06/18/21 14:09 Quetiapine Fumarate (SEROquel) 1,250 mg PRN Q8HRS PRN PO 3RD CHOICE FOR ANXIETY 06/13/21 12:45 06/13/21 13:24 DC Quetiapine Fumarate (SEROquel) 200 mg QHS PO 06/13/21 21:00 06/18/21 16:54 DC 06/17/21 20:01 Artificial Tears (Artificial Tears) 1 drop PRN DAILY PRN OU DRY EYE 06/13/21 13:30 Docusate Sodium (Colace) 100 mg BID PO 06/13/21 21:00 06/15/21 21:58 DC 06/15/21 20:31 Loperamide HCl (Imodium) 2 mg PRN QID PRN PO DIARRHEA 06/13/21 13:15 Magnesium Hydroxide (Milk Of Magnesia) 2,400 mg PRN QHS PRN PO 1st choice CONSTIPATION 06/13/21 13:15 Non-Formulary Medication (Methyl Salicylate/ Menthol (Bengay Greaseless Cream)) 1 will PRN QID PRN TP MUSCLE PAIN 06/13/21 12:45 UNV Quetiapine Fumarate (SEROquel) 25 mg PRN Q8HRS PRN PO ANXIETY 06/13/21 14:00 06/17/21 17:39 DC 06/17/21 12:06 Divalproex Sodium (Depakote Sprinkles) 250 mg TID PO 06/14/21 14:00 06/15/21 21:58 DC 06/15/21 20:31 Fluvoxamine Maleate (Luvox) 25 mg DAILY PO 06/15/21 09:00 06/22/21 07:44 Lidocaine (Lidoderm) 1 patch DAILY TP 06/15/21 11:00 06/22/21 07:43 Miscellaneous (Lidoderm Patch Removal) 1 ea QHS MC 06/15/21 21:00 06/21/21 21:00 Valproic Acid (Depakene) 250 mg [id number] PO 06/16/21 09:00 06/18/21 16:54 DC 06/18/21 14:09 Docusate Sodium (Colace Solution) 100 mg BID PO 06/16/21 09:00 06/22/21 19:47 Mirtazapine (Remeron) 7.5 mg QHS PO 06/15/21 22:45 06/22/21 19:48 Trazodone HCl (Desyrel) 50 mg PRN QHS PRN PO INSOMNIA, MAY REPEAT X1 06/15/21 22:45 06/21/21 20:02 DC 06/20/21 22:40 Olanzapine (ZyPREXA ZYDIS) 2.5 mg PRN Q2HRS PRN PO PSYCHOSIS 06/17/21 17:45 06/18/21 19:59 Valproic Acid (Depakene) 250 mg 0900,1400 PO 06/19/21 09:00 06/22/21 12:42 Valproic Acid (Depakene) 500 mg QHS PO 06/18/21 21:00 06/22/21 19:47 Risperidone (RisperDAL) 0.25 mg 0900,1300,1700 PO 06/18/21 17:00 06/22/21 17:05 Ondansetron HCl (Zofran Odt) 4 mg PRN Q8HRS PRN PO NAUSEA/VOMITING 06/20/21 16:15 Melatonin (Melatonin) 3 mg PRN QHS PRN PO INSOMNIA 06/21/21 00:45 06/21/21 20:02 DC 06/21/21 00:59 Meloxicam (Mobic) 7.5 mg DAILY PO 06/22/21 09:00 06/22/21 07:43 Melatonin (Melatonin) 3 mg QHS PO 06/21/21 20:00 06/22/21 19:48 Trazodone HCl (Desyrel) 100 mg PRN QHS PRN PO INSOMNIA, JUNE REPEAT X1 06/21/21 20:15 06/22/21 19:48 Current Medications Medications (Trade) Dose Ordered Sig/Abundio Route PRN Reason Start Time Stop Time Status Last Admin Dose Admin Meloxicam (Mobic) 7.5 mg DAILY PO 06/22/21 09:00 06/22/21 07:43 I have reviewed the current psychotropics carefully including drug interactions. Risk benefit ratio favors no change other than as noted in my dictated progress note. Diagnosis: Problems: (1) Impulse control disorder, unspecified (2) Anxiety disorder, unspecified (3) Dementia, vascular, with depression (4) Dementia, vascular, with delusions (5) Dementia in Alzheimer's disease with depression (6) Dementia in Alzheimer's disease with delusions (7) Dementia of the Alzheimer's type with early onset with behavioral disturbance (8) Major neurocognitive disorder (9) PTSD (post-traumatic stress disorder) DUANE NINO MD June 22, 2021 21:53
[2021-06-23] MEDS: traZODone 100 MG TABLET. PO PRN ×2 (00:57→20:09)
[2021-06-23 06:00] VITALS: BP 119/66
--- NOTE | 2021-06-23 06:03 | EKG ---
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
[2021-06-23] MEDS: MELOXICAM 7.5 MG TABLET PO SCH (08:22)
[2021-06-23] MEDS: VALPROATE ACID 250 MG/5 ML ORAL SOLUTION PO SCH ×3 (08:24→20:09)
[2021-06-23] MEDS: risperiDONE 0.25 MG TABLET. PO SCH ×3 (08:24→17:12)
[2021-06-23] MEDS: POTASSIUM CHLORIDE 20 MEQ TABLET.ER. PO SCH (08:24)
[2021-06-23] MEDS: PRAZOSIN 1 MG CAPSULE. PO SCH (08:25)
[2021-06-23] MEDS: LIDOCAINE (700MG/PATCH) PATCH. TP SCH (08:25)
[2021-06-23] MEDS: FUROSEMIDE 20 MG TABLET PO SCH (08:25)
[2021-06-23] MEDS: DOCUSATE 100 MG/10 ML SOLUTION. PO SCH ×2 (08:25→20:09)
[2021-06-23] MEDS: LISINOPRIL 10 MG TABLET PO SCH (08:25)
[2021-06-23 15:48] VITALS: BP 140/84
[2021-06-23] MEDS: MELATONIN 3 MG TABLET PO SCH (20:08)
[2021-06-23] MEDS: PATCH REMOVAL. MC SCH (20:08)
[2021-06-23] MEDS: MIRTAZAPINE 7.5 MG TABLET. PO SCH (20:09)
--- NOTE | 2021-06-23 21:45 | PDOC ---
Exam Note: Raman Note: Please also refer to the separate dictated note~for this date of service dictated separately.~Patient seen individually. Discussed the patient with Nursing staff reviewed the chart.~Reviewed interim history and current functioning. Reviewed vital signs,~Labs/ Radiology~and current medications noted below. Continue current treatment with the changes noted in the dictated addendum note Assessment: Vital Signs/I&O: Vital Signs Date Time Temp Pulse Resp B/P (MAP) Pulse Ox O2 Delivery O2 Flow Rate FiO2 06/23/21 15:48 97.1 64 17 140/84 (102) 97 Room Air I & O 06/22/21 06/22/21 06/23/21 15:00 23:00 07:00 Intake Total 360 ml 480 ml Balance 360 ml 480 ml Current Medications: Meds: Current Medications Medications (Trade) Dose Ordered Sig/Abundio Route PRN Reason Start Time Stop Time Status Last Admin Dose Admin Acetaminophen (Tylenol) 650 mg PRN Q6HRS PRN PO MILD PAIN / TEMP > 100.3'F 06/13/21 11:00 06/13/21 11:08 DC Multi-Ingredient Ointment (Analgesic [place]) 1 will PRN QID PRN TP 2ND CHOICE MUSCLE PAIN 06/13/21 11:00 Al Hydroxide/Mg Hydroxide (Mylanta Plus Xs) 15 ml PRN AFTMEALHC PRN PO DYSPEPSIA 06/13/21 11:00 06/13/21 11:08 DC Magnesium Hydroxide (Milk Of Magnesia) 2,400 mg PRN QHS PRN PO CONSTIPATION 06/13/21 11:00 06/13/21 11:08 DC Acetaminophen (Tylenol) 650 mg PRN Q6HRS PRN PO MILD PAIN / TEMP > 100.3'F 06/13/21 12:45 06/20/21 22:40 Bisacodyl (Fleet Bisacodyl) 10 mg PRN DAILY PRN RC 2nd choice CONSTIPATION 06/13/21 12:45 Diclofenac Sodium (Voltaren) 1 will PRN BID PRN TP 1st choice muscle PAIN 06/13/21 12:45 06/14/21 02:04 Divalproex Sodium (Depakote Er) 250 mg TID PO 06/13/21 14:00 06/14/21 13:29 DC 06/14/21 09:00 Furosemide (Lasix) 20 mg DAILY PO 06/14/21 09:00 06/23/21 08:25 Lidocaine (Lidoderm) 1 patch PRN DAILY PRN TP muscle PAIN 06/13/21 12:45 06/15/21 10:37 DC 06/14/21 06:39 Lisinopril (Prinivil) 10 mg DAILY PO 06/14/21 09:00 06/22/21 07:42 Al Hydroxide/Mg Hydroxide (Mylanta Plus Xs) 15 ml PRN AFTMEALHC PRN PO DYSPEPSIA 06/13/21 12:45 Potassium Chloride (Klor-Con) 20 meq DAILY PO 06/14/21 09:00 06/23/21 08:24 Prazosin HCl (Minipress) 3 mg DAILY PO 06/14/21 09:00 06/22/21 07:42 Quetiapine Fumarate (SEROquel) 100 mg 0900,1400 PO 06/13/21 14:00 06/18/21 16:54 DC 06/18/21 14:09 Quetiapine Fumarate (SEROquel) 1,250 mg PRN Q8HRS PRN PO 3RD CHOICE FOR ANXIETY 06/13/21 12:45 06/13/21 13:24 DC Quetiapine Fumarate (SEROquel) 200 mg QHS PO 06/13/21 21:00 06/18/21 16:54 DC 06/17/21 20:01 Artificial Tears (Artificial Tears) 1 drop PRN DAILY PRN OU DRY EYE 06/13/21 13:30 Docusate Sodium (Colace) 100 mg BID PO 06/13/21 21:00 06/15/21 21:58 DC 06/15/21 20:31 Loperamide HCl (Imodium) 2 mg PRN QID PRN PO DIARRHEA 06/13/21 13:15 Magnesium Hydroxide (Milk Of Magnesia) 2,400 mg PRN QHS PRN PO 1st choice CONSTIPATION 06/13/21 13:15 Non-Formulary Medication (Methyl Salicylate/ Menthol (Bengay Greaseless Cream)) 1 will PRN QID PRN TP MUSCLE PAIN 06/13/21 12:45 UNV Quetiapine Fumarate (SEROquel) 25 mg PRN Q8HRS PRN PO ANXIETY 06/13/21 14:00 06/17/21 17:39 DC 06/17/21 12:06 Divalproex Sodium (Depakote Sprinkles) 250 mg TID PO 06/14/21 14:00 06/15/21 21:58 DC 06/15/21 20:31 Fluvoxamine Maleate (Luvox) 25 mg DAILY PO 06/15/21 09:00 06/23/21 08:24 Lidocaine (Lidoderm) 1 patch DAILY TP 06/15/21 11:00 06/23/21 08:25 Miscellaneous (Lidoderm Patch Removal) 1 ea QHS MC 06/15/21 21:00 06/23/21 20:08 Valproic Acid (Depakene) 250 mg [id number] PO 06/16/21 09:00 06/18/21 16:54 DC 06/18/21 14:09 Docusate Sodium (Colace Solution) 100 mg BID PO 06/16/21 09:00 06/23/21 20:09 Mirtazapine (Remeron) 7.5 mg QHS PO 06/15/21 22:45 06/23/21 20:09 Trazodone HCl (Desyrel) 50 mg PRN QHS PRN PO INSOMNIA, MAY REPEAT X1 06/15/21 22:45 06/21/21 20:02 DC 06/20/21 22:40 Olanzapine (ZyPREXA ZYDIS) 2.5 mg PRN Q2HRS PRN PO PSYCHOSIS 06/17/21 17:45 06/18/21 19:59 Valproic Acid (Depakene) 250 mg 0900,1400 PO 06/19/21 09:00 06/23/21 12:44 Valproic Acid (Depakene) 500 mg QHS PO 06/18/21 21:00 06/23/21 20:09 Risperidone (RisperDAL) 0.25 mg 0900,1300,1700 PO 06/18/21 17:00 06/23/21 17:12 Ondansetron HCl (Zofran Odt) 4 mg PRN Q8HRS PRN PO NAUSEA/VOMITING 06/20/21 16:15 Melatonin (Melatonin) 3 mg PRN QHS PRN PO INSOMNIA 06/21/21 00:45 06/21/21 20:02 DC 5/6/22 00:59 Meloxicam (Mobic) 7.5 mg DAILY PO 06/22/21 09:00 06/23/21 08:22 Melatonin (Melatonin) 3 mg QHS PO 06/21/21 20:00 06/23/21 20:08 Trazodone HCl (Desyrel) 100 mg PRN QHS PRN PO INSOMNIA, JUNE REPEAT X1 06/21/21 20:15 06/23/21 20:09 I have reviewed the current psychotropics carefully including drug interactions. Risk benefit ratio favors no change other than as noted in my dictated progress note. Diagnosis: Problems: (1) Impulse control disorder, unspecified (2) Anxiety disorder, unspecified (3) Dementia, vascular, with depression (4) Dementia, vascular, with delusions (5) Dementia in Alzheimer's disease with depression (6) Dementia in Alzheimer's disease with delusions (7) Dementia of the Alzheimer's type with early onset with behavioral disturbance (8) Major neurocognitive disorder (9) PTSD (post-traumatic stress disorder) DUANE NINO MD June 23, 2021 21:45
[2021-06-23] MEDS: ACETAMINOPHEN 325 MG TABLET PO PRN (22:08)
[2021-06-24] MEDS: DICLOFENAC SODIUM 1% TOPICAL GEL 100GM TUBE. TP PRN (00:30)
[2021-06-24 05:47] VITALS: BP 133/73
[2021-06-24] MEDS: FUROSEMIDE 20 MG TABLET PO SCH (07:53)
[2021-06-24] MEDS: POTASSIUM CHLORIDE 20 MEQ TABLET.ER. PO SCH (07:55)
[2021-06-24] MEDS: PRAZOSIN 1 MG CAPSULE. PO SCH (07:55)
[2021-06-24] MEDS: LISINOPRIL 10 MG TABLET PO SCH (07:55)
[2021-06-24] MEDS: MELOXICAM 7.5 MG TABLET PO SCH (07:55)
[2021-06-24] MEDS: risperiDONE 0.25 MG TABLET. PO SCH ×3 (07:55→17:31)
[2021-06-24] MEDS: LIDOCAINE (700MG/PATCH) PATCH. TP SCH (08:01)
[2021-06-24] MEDS: VALPROATE ACID 250 MG/5 ML ORAL SOLUTION PO SCH ×3 (08:12→20:01)
[2021-06-24] MEDS: DOCUSATE 100 MG/10 ML SOLUTION. PO SCH ×2 (08:12→20:01)
--- NOTE | 2021-06-24 08:21 | PDOC ---
Exam Note: Raman Note: This note is a late entry for 06/22/2021 covers elements not covered in my initial note. Subjective: The patient was seen individually on 06/22/2021, discussed and reviewed the chart with Bere MONTEMAYOR. The patient slept 6 hours last night and then another 3 hours this morning as the nurses let him sleep till 9 a.m., catching him up on his sleep. I met with him in the dayroom. He has had a nice day per nursing staff. He is less paranoid, less irritable, compliant with medications, still very confused. Review of Systems: No CV, , pulmonary, eye system symptoms on review. Reliability poor. Mental Status Exam: Patient is oriented to himself. Insight and judgment, recent and remote memory, attention and concentration, fund of knowledge is poor consistent with his diagnosis. Laboratory Data: Reviewed. Impression: Major neurocognitive disorder, Alzheimer, vascular with delusion, depression, behavioral disturbance. Anxiety disorder unspecified. Impulse control disorder unspecified. Plan: Continue current psychotropics. Reviewed drug interactions and risk- benefit ratio. Risperdal seems to be helping his psychosis. We will maintain at current dosages as mentioned in my initial note. Adjust as clinically indicated. Assessment: Vital Signs/I&O: Vital Signs Date Time Temp Pulse Resp B/P (MAP) Pulse Ox O2 Delivery O2 Flow Rate FiO2 06/24/21 07:55 69 133/73 06/24/21 05:47 98.1 20 99 Room Air I & O 06/23/21 06/23/21 06/24/21 15:00 23:00 07:00 Intake Total 720 ml 300 ml Balance 720 ml 300 ml Labs: Laboratory Tests Test 06/24/21 06:40 Ammonia 19 mcmol/L (11-34) Current Medications: I have reviewed the current psychotropics carefully including drug interactions. Risk benefit ratio favors no change other than as noted in my dictated progress note. Diagnosis: Problems: (1) Impulse control disorder, unspecified (2) Anxiety disorder, unspecified (3) Dementia, vascular, with depression (4) Dementia, vascular, with delusions (5) Dementia in Alzheimer's disease with depression (6) Dementia in Alzheimer's disease with delusions (7) Dementia of the Alzheimer's type with early onset with behavioral disturbance (8) Major neurocognitive disorder (9) PTSD (post-traumatic stress disorder) TRUNG,MAN M MD June 24, 2021 08:21
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
[2021-06-24 16:00] VITALS: BP 154/72
[2021-06-24] MEDS: PATCH REMOVAL. MC SCH (20:00)
[2021-06-24] MEDS: MIRTAZAPINE 7.5 MG TABLET. PO SCH (20:01)
[2021-06-24] MEDS: MELATONIN 3 MG TABLET PO SCH (20:01)
[2021-06-24] MEDS: traZODone 100 MG TABLET. PO PRN (20:02)
--- NOTE | 2021-06-24 21:24 | PDOC ---
Exam Note: Raman Note: Please also refer to the separate dictated note~for this date of service dictated separately.~Patient seen individually. Discussed the patient with Nursing staff reviewed the chart.~Reviewed interim history and current functioning. Reviewed vital signs,~Labs/ Radiology~and current medications noted below. Continue current treatment with the changes noted in the dictated addendum note Assessment: Vital Signs/I&O: Vital Signs Date Time Temp Pulse Resp B/P (MAP) Pulse Ox O2 Delivery O2 Flow Rate FiO2 06/24/21 16:00 97.9 90 20 154/72 (99) 97 Room Air I & O 06/23/21 06/23/21 06/24/21 14:59 22:59 06:59 Intake Total 720 ml 300 ml Balance 720 ml 300 ml Labs: Laboratory Tests Test 06/24/21 06:40 Ammonia 19 mcmol/L (11-34) Current Medications: Meds: Laboratory Tests Test 06/24/21 06:40 Ammonia 19 mcmol/L Current Medications Medications (Trade) Dose Ordered Sig/Abundio Route PRN Reason Start Time Stop Time Status Last Admin Dose Admin Acetaminophen (Tylenol) 650 mg PRN Q6HRS PRN PO MILD PAIN / TEMP > 100.3'F 06/13/21 11:00 06/13/21 11:08 DC Multi-Ingredient Ointment (Analgesic [place]) 1 will PRN QID PRN TP 2ND CHOICE MUSCLE PAIN 06/13/21 11:00 Al Hydroxide/Mg Hydroxide (Mylanta Plus Xs) 15 ml PRN AFTMEALHC PRN PO DYSPEPSIA 06/13/21 11:00 06/13/21 11:08 DC Magnesium Hydroxide (Milk Of Magnesia) 2,400 mg PRN QHS PRN PO CONSTIPATION 06/13/21 11:00 06/13/21 11:08 DC Acetaminophen (Tylenol) 650 mg PRN Q6HRS PRN PO MILD PAIN / TEMP > 100.3'F 06/13/21 12:45 06/23/21 22:08 Bisacodyl (Fleet Bisacodyl) 10 mg PRN DAILY PRN RC 2nd choice CONSTIPATION 06/13/21 12:45 Diclofenac Sodium (Voltaren) 1 will PRN BID PRN TP 1st choice muscle PAIN 06/13/21 12:45 06/24/21 00:30 Divalproex Sodium (Depakote Er) 250 mg TID PO 06/13/21 14:00 06/14/21 13:29 DC 06/14/21 09:00 Furosemide (Lasix) 20 mg DAILY PO 06/14/21 09:00 06/24/21 07:53 Lidocaine (Lidoderm) 1 patch PRN DAILY PRN TP muscle PAIN 06/13/21 12:45 06/15/21 10:37 DC 06/14/21 06:39 Lisinopril (Prinivil) 10 mg DAILY PO 06/14/21 09:00 06/24/21 07:55 Al Hydroxide/Mg Hydroxide (Mylanta Plus Xs) 15 ml PRN AFTMEALHC PRN PO DYSPEPSIA 06/13/21 12:45 Potassium Chloride (Klor-Con) 20 meq DAILY PO 06/14/21 09:00 06/24/21 07:55 Prazosin HCl (Minipress) 3 mg DAILY PO 06/14/21 09:00 06/24/21 07:55 Quetiapine Fumarate (SEROquel) 100 mg 0900,1400 PO 06/13/21 14:00 06/18/21 16:54 DC 06/18/21 14:09 Quetiapine Fumarate (SEROquel) 1,250 mg PRN Q8HRS PRN PO 3RD CHOICE FOR ANXIETY 06/13/21 12:45 06/13/21 13:24 DC Quetiapine Fumarate (SEROquel) 200 mg QHS PO 06/13/21 21:00 06/18/21 16:54 DC 06/17/21 20:01 Artificial Tears (Artificial Tears) 1 drop PRN DAILY PRN OU DRY EYE 06/13/21 13:30 Docusate Sodium (Colace) 100 mg BID PO 06/13/21 21:00 06/15/21 21:58 DC 06/15/21 20:31 Loperamide HCl (Imodium) 2 mg PRN QID PRN PO DIARRHEA 06/13/21 13:15 Magnesium Hydroxide (Milk Of Magnesia) 2,400 mg PRN QHS PRN PO 1st choice CONSTIPATION 06/13/21 13:15 Non-Formulary Medication (Methyl Salicylate/ Menthol (Beng[place] Greaseless Cream)) 1 will PRN QID PRN TP MUSCLE PAIN 06/13/21 12:45 UNV Quetiapine Fumarate (SEROquel) 25 mg PRN Q8HRS PRN PO ANXIETY 06/13/21 14:00 06/17/21 17:39 DC 06/17/21 12:06 Divalproex Sodium (Depakote Sprinkles) 250 mg TID PO 06/14/21 14:00 06/15/21 21:58 DC 06/15/21 20:31 Fluvoxamine Maleate (Luvox) 25 mg DAILY PO 06/15/21 09:00 06/24/21 07:54 Lidocaine (Lidoderm) 1 patch DAILY TP 06/15/21 11:00 06/24/21 08:01 Miscellaneous (Lidoderm Patch Removal) 1 ea QHS MC 06/15/21 21:00 06/24/21 20:00 Valproic Acid (Depakene) 250 mg [id number] PO 06/16/21 09:00 06/18/21 16:54 DC 06/18/21 14:09 Docusate Sodium (Colace Solution) 100 mg BID PO 06/16/21 09:00 06/24/21 20:01 Mirtazapine (Remeron) 7.5 mg QHS PO 06/15/21 22:45 06/24/21 20:01 Trazodone HCl (Desyrel) 50 mg PRN QHS PRN PO INSOMNIA, MAY REPEAT X1 06/15/21 22:45 06/21/21 20:02 DC 06/20/21 22:40 Olanzapine (ZyPREXA ZYDIS) 2.5 mg PRN Q2HRS PRN PO PSYCHOSIS 06/17/21 17:45 06/18/21 19:59 Valproic Acid (Depakene) 250 mg 0900,1400 PO 06/19/21 09:00 06/24/21 12:29 Valproic Acid (Depakene) 500 mg QHS PO 06/18/21 21:00 06/24/21 20:01 Risperidone (RisperDAL) 0.25 mg 0900,1300,1700 PO 06/18/21 17:00 06/24/21 17:31 Ondansetron HCl (Zofran Odt) 4 mg PRN Q8HRS PRN PO NAUSEA/VOMITING 06/20/21 16:15 Melatonin (Melatonin) 3 mg PRN QHS PRN PO INSOMNIA 06/21/21 00:45 06/21/21 20:02 DC 06/21/21 00:59 Meloxicam (Mobic) 7.5 mg DAILY PO 06/22/21 09:00 06/24/21 07:55 Melatonin (Melatonin) 3 mg QHS PO 06/21/21 20:00 06/24/21 20:01 Trazodone HCl (Desyrel) 100 mg PRN QHS PRN PO INSOMNIA, June X1 06/21/21 20:15 06/24/21 20:02 I have reviewed the current psychotropics carefully including drug interactions. Risk benefit ratio favors no change other than as noted in my dictated progress note. Diagnosis: Problems: (1) Impulse control disorder, unspecified (2) Anxiety disorder, unspecified (3) Dementia, vascular, with depression (4) Dementia, vascular, with delusions (5) Dementia in Alzheimer's disease with depression (6) Dementia in Alzheimer's disease with delusions (7) Dementia of the Alzheimer's type with early onset with behavioral disturbance (8) Major neurocognitive disorder (9) PTSD (post-traumatic stress disorder) DUANE NINO MD June 24, 2021 21:24
[2021-06-25 06:05] VITALS: BP 128/72
[2021-06-25] MEDS: POTASSIUM CHLORIDE 20 MEQ TABLET.ER. PO SCH (07:58)
[2021-06-25] MEDS: risperiDONE 0.25 MG TABLET. PO SCH ×3 (07:58→17:19)
[2021-06-25] MEDS: PRAZOSIN 1 MG CAPSULE. PO SCH (07:58)
[2021-06-25] MEDS: MELOXICAM 7.5 MG TABLET PO SCH (07:59)
[2021-06-25] MEDS: LISINOPRIL 10 MG TABLET PO SCH (08:02)
[2021-06-25] MEDS: LIDOCAINE (700MG/PATCH) PATCH. TP SCH (08:03)
[2021-06-25] MEDS: FUROSEMIDE 20 MG TABLET PO SCH (08:03)
[2021-06-25] MEDS: DOCUSATE 100 MG/10 ML SOLUTION. PO SCH ×2 (08:25→19:54)
[2021-06-25] MEDS: VALPROATE ACID 250 MG/5 ML ORAL SOLUTION PO SCH ×3 (08:25→19:49)
--- NOTE | 2021-06-25 08:31 | PDOC ---
Exam Note: Raman Note: This note is a late entry for 06/24/2021 covers elements not covered in my initial note. Subjective: The patient was seen individually on 06/24/2021, discussed and reviewed the chart with Disha MONTEMAYOR. The patient slept 1-1/2 hours last night. Overall he remains confused, not aggressive. He has less of a tendency urinating on the floor. He appears less psychotic and paranoid. Ammonia is improved from 52 to 19 today. I met with him in the hallway. Review of Systems: No CV, , pulmonary, eye system symptoms on review. Reliability poor. Mental Status Exam: Patient is oriented to himself. Insight and judgment, recent and remote memory, attention and concentration, fund of knowledge is poor consistent with his diagnosis. Laboratory Data: Reviewed. Impression: Major neurocognitive disorder, Alzheimer, vascular with delusion, depression, behavioral disturbance. Anxiety disorder unspecified. Impulse control disorder unspecified. Plan: Continue current psychotropics. Reviewed drug interactions and risk- benefit ratio. Assessment: Vital Signs/I&O: Vital Signs Date Time Temp Pulse Resp B/P (MAP) Pulse Ox O2 Delivery O2 Flow Rate FiO2 06/25/21 08:02 55 128/72 06/25/21 06:05 97.2 16 99 Room Air I & O 06/24/21 06/24/21 06/25/21 15:00 23:00 07:00 Intake Total 240 ml 360 ml Balance 240 ml 360 ml Current Medications: I have reviewed the current psychotropics carefully including drug interactions. Risk benefit ratio favors no change other than as noted in my dictated progress note. Diagnosis: Problems: (1) Impulse control disorder, unspecified (2) Anxiety disorder, unspecified (3) Dementia, vascular, with depression (4) Dementia, vascular, with delusions (5) Dementia in Alzheimer's disease with depression (6) Dementia in Alzheimer's disease with delusions (7) Dementia of the Alzheimer's type with early onset with behavioral disturbance (8) Major neurocognitive disorder (9) PTSD (post-traumatic stress disorder) DUANE NINO MD June 25, 2021 08:31
[2021-06-25] MEDS: ACETAMINOPHEN 325 MG TABLET PO PRN ×2 (13:50→22:27)
[2021-06-25] MEDS: MELATONIN 3 MG TABLET PO SCH (19:49)
[2021-06-25] MEDS: PATCH REMOVAL. MC SCH (19:49)
[2021-06-25] MEDS: MIRTAZAPINE 7.5 MG TABLET. PO SCH (19:49)
[2021-06-25] MEDS: traZODone 100 MG TABLET. PO PRN ×2 (19:49→22:27)
--- NOTE | 2021-06-25 21:28 | PDOC ---
Exam Note: Raman Note: Please also refer to the separate dictated note~for this date of service dictated separately.~Patient seen individually. Discussed the patient with Nursing staff reviewed the chart.~Reviewed interim history and current functioning. Reviewed vital signs,~Labs/ Radiology~and current medications noted below. Continue current treatment with the changes noted in the dictated addendum note Assessment: Vital Signs/I&O: Vital Signs Date Time Temp Pulse Resp B/P (MAP) Pulse Ox O2 Delivery O2 Flow Rate FiO2 06/25/21 08:02 55 128/72 06/25/21 06:05 97.2 16 99 Room Air I & O 06/24/21 06/24/21 06/25/21 14:59 22:59 06:59 Intake Total 240 ml 360 ml Balance 240 ml 360 ml Labs: Laboratory Tests Test 06/25/21 08:40 POC SARS CoV-2 Antigen Negative (NEGATIVE) Current Medications: Meds: Laboratory Tests Test 06/25/21 08:40 POC SARS CoV-2 Antigen Negative Current Medications Medications (Trade) Dose Ordered Sig/Abundio Route PRN Reason Start Time Stop Time Status Last Admin Dose Admin Acetaminophen (Tylenol) 650 mg PRN Q6HRS PRN PO MILD PAIN / TEMP > 100.3'F 06/13/21 11:00 06/13/21 11:08 DC Multi-Ingredient Ointment (Analgesic [place]) 1 will PRN QID PRN TP 2ND CHOICE MUSCLE PAIN 06/13/21 11:00 Al Hydroxide/Mg Hydroxide (Mylanta Plus Xs) 15 ml PRN AFTMEALHC PRN PO DYSPEPSIA 06/13/21 11:00 06/13/21 11:08 DC Magnesium Hydroxide (Milk Of Magnesia) 2,400 mg PRN QHS PRN PO CONSTIPATION 06/13/21 11:00 06/13/21 11:08 DC Acetaminophen (Tylenol) 650 mg PRN Q6HRS PRN PO MILD PAIN / TEMP > 100.3'F 06/13/21 12:45 06/25/21 13:50 Bisacodyl (Fleet Bisacodyl) 10 mg PRN DAILY PRN RC 2nd choice CONSTIPATION 06/13/21 12:45 Diclofenac Sodium (Voltaren) 1 will PRN BID PRN TP 1st choice muscle PAIN 06/13/21 12:45 06/24/21 00:30 Divalproex Sodium (Depakote Er) 250 mg TID PO 06/13/21 14:00 06/14/21 13:29 DC 06/14/21 09:00 Furosemide (Lasix) 20 mg DAILY PO 06/14/21 09:00 06/25/21 08:03 Lidocaine (Lidoderm) 1 patch PRN DAILY PRN TP muscle PAIN 06/13/21 12:45 06/15/21 10:37 DC 06/14/21 06:39 Lisinopril (Prinivil) 10 mg DAILY PO 06/14/21 09:00 06/25/21 08:02 Al Hydroxide/Mg Hydroxide (Mylanta Plus Xs) 15 ml PRN AFTMEALHC PRN PO DYSPEPSIA 06/13/21 12:45 Potassium Chloride (Klor-Con) 20 meq DAILY PO 06/14/21 09:00 06/25/21 07:58 Prazosin HCl (Minipress) 3 mg DAILY PO 06/14/21 09:00 06/25/21 07:58 Quetiapine Fumarate (SEROquel) 100 mg 0900,1400 PO 06/13/21 14:00 06/18/21 16:54 DC 06/18/21 14:09 Quetiapine Fumarate (SEROquel) 1,250 mg PRN Q8HRS PRN PO 3RD CHOICE FOR ANXIETY 06/13/21 12:45 06/13/21 13:24 DC Quetiapine Fumarate (SEROquel) 200 mg QHS PO 06/13/21 21:00 06/18/21 16:54 DC 06/17/21 20:01 Artificial Tears (Artificial Tears) 1 drop PRN DAILY PRN OU DRY EYE 06/13/21 13:30 Docusate Sodium (Colace) 100 mg BID PO 06/13/21 21:00 06/15/21 21:58 DC 06/15/21 20:31 Loperamide HCl (Imodium) 2 mg PRN QID PRN PO DIARRHEA 06/13/21 13:15 Magnesium Hydroxide (Milk Of Magnesia) 2,400 mg PRN QHS PRN PO 1st choice CONSTIPATION 06/13/21 13:15 Non-Formulary Medication (Methyl Salicylate/ Menthol ([place] Greaseless Cream)) 1 will PRN QID PRN TP MUSCLE PAIN 06/13/21 12:45 UNV Quetiapine Fumarate (SEROquel) 25 mg PRN Q8HRS PRN PO ANXIETY 06/13/21 14:00 06/17/21 17:39 DC 06/17/21 12:06 Divalproex Sodium (Depakote Sprinkles) 250 mg TID PO 06/14/21 14:00 06/15/21 21:58 DC 06/15/21 20:31 Fluvoxamine Maleate (Luvox) 25 mg DAILY PO 06/15/21 09:00 06/25/21 07:58 Lidocaine (Lidoderm) 1 patch DAILY TP 06/15/21 11:00 06/25/21 08:03 Miscellaneous (Lidoderm Patch Removal) 1 ea QHS MC 06/15/21 21:00 06/25/21 19:49 Valproic Acid (Depakene) 250 mg [id number] PO 06/16/21 09:00 06/18/21 16:54 DC 06/18/21 14:09 Docusate Sodium (Colace Solution) 100 mg BID PO 06/16/21 09:00 06/25/21 19:54 Mirtazapine (Remeron) 7.5 mg QHS PO 06/15/21 22:45 06/25/21 19:49 Trazodone HCl (Desyrel) 50 mg PRN QHS PRN PO INSOMNIA, MAY REPEAT X1 06/15/21 22:45 06/21/21 20:02 DC 06/20/21 22:40 Olanzapine (ZyPREXA ZYDIS) 2.5 mg PRN Q2HRS PRN PO PSYCHOSIS 06/17/21 17:45 06/18/21 19:59 Valproic Acid (Depakene) 250 mg 0900,1400 PO 06/19/21 09:00 06/25/21 13:53 Valproic Acid (Depakene) 500 mg QHS PO 06/18/21 21:00 06/25/21 19:49 Risperidone (RisperDAL) 0.25 mg 0900,1300,1700 PO 06/18/21 17:00 06/25/21 17:19 Ondansetron HCl (Zofran Odt) 4 mg PRN Q8HRS PRN PO NAUSEA/VOMITING 06/20/21 16:15 Melatonin (Melatonin) 3 mg PRN QHS PRN PO INSOMNIA 06/21/21 00:45 06/21/21 20:02 DC 06/21/21 00:59 Meloxicam (Mobic) 7.5 mg DAILY PO 06/22/21 09:00 06/25/21 07:59 Melatonin (Melatonin) 3 mg QHS PO 06/21/21 20:00 06/25/21 19:49 Trazodone HCl (Desyrel) 100 mg PRN QHS PRN PO INSOMNIA, June X1 06/21/21 20:15 06/25/21 19:49 Polyethylene Glycol (miraLAX) 17 gm DAILY PO 06/26/21 09:00 I have reviewed the current psychotropics carefully including drug interactions. Risk benefit ratio favors no change other than as noted in my dictated progress note. Diagnosis: Problems: (1) Impulse control disorder, unspecified (2) Anxiety disorder, unspecified (3) Dementia, vascular, with depression (4) Dementia, vascular, with delusions (5) Dementia in Alzheimer's disease with depression (6) Dementia in Alzheimer's disease with delusions (7) Dementia of the Alzheimer's type with early onset with behavioral disturbance (8) Major neurocognitive disorder (9) PTSD (post-traumatic stress disorder) DUANE NINO MD June 25, 2021 21:28
[2021-06-26 05:59] VITALS: BP 123/78
[2021-06-26] MEDS: VALPROATE ACID 250 MG/5 ML ORAL SOLUTION PO SCH ×3 (08:19→19:35)
[2021-06-26] MEDS: PRAZOSIN 1 MG CAPSULE. PO SCH (08:20)
[2021-06-26] MEDS: DOCUSATE 100 MG/10 ML SOLUTION. PO SCH ×2 (08:20→19:34)
[2021-06-26] MEDS: MELOXICAM 7.5 MG TABLET PO SCH ×2 (08:21→08:53)
[2021-06-26] MEDS: FUROSEMIDE 20 MG TABLET PO SCH (08:21)
[2021-06-26] MEDS: risperiDONE 0.25 MG TABLET. PO SCH ×3 (08:21→17:20)
[2021-06-26] MEDS: POTASSIUM CHLORIDE 20 MEQ TABLET.ER. PO SCH (08:22)
[2021-06-26] MEDS: POLYETHYLENE GLYCOL 3350 17 GM PACKET. PO SCH (08:22)
[2021-06-26] MEDS: LISINOPRIL 10 MG TABLET PO SCH (08:23)
[2021-06-26] MEDS: LIDOCAINE (700MG/PATCH) PATCH. TP SCH (08:24)
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
[2021-06-26 16:37] VITALS: BP 109/69
[2021-06-26] MEDS: traZODone 100 MG TABLET. PO PRN ×2 (19:34→21:00)
[2021-06-26] MEDS: MELATONIN 3 MG TABLET PO SCH (19:34)
[2021-06-26] MEDS: MIRTAZAPINE 7.5 MG TABLET. PO SCH (19:34)
[2021-06-26] MEDS: ACETAMINOPHEN 325 MG TABLET PO PRN (19:35)
[2021-06-26] MEDS: PATCH REMOVAL. MC SCH (19:35)
--- NOTE | 2021-06-26 21:50 | PDOC ---
Exam Note: Raman Note: Please also refer to the separate dictated note~for this date of service dictated separately.~Patient seen individually. Discussed the patient with Nursing staff reviewed the chart.~Reviewed interim history and current functioning. Reviewed vital signs,~Labs/ Radiology~and current medications noted below. Continue current treatment with the changes noted in the dictated addendum note Assessment: Vital Signs/I&O: Vital Signs Date Time Temp Pulse Resp B/P (MAP) Pulse Ox O2 Delivery O2 Flow Rate FiO2 06/26/21 16:37 98.0 90 20 109/69 (82) 98 Room Air I & O 06/25/21 06/25/21 06/26/21 15:00 23:00 07:00 Intake Total 480 ml 480 ml Balance 480 ml 480 ml Current Medications: Meds: Current Medications Medications (Trade) Dose Ordered Sig/Abundio Route PRN Reason Start Time Stop Time Status Last Admin Dose Admin Acetaminophen (Tylenol) 650 mg PRN Q6HRS PRN PO MILD PAIN / TEMP > 100.3'F 06/13/21 11:00 06/13/21 11:08 DC Multi-Ingredient Ointment (Analgesic [place]) 1 will PRN QID PRN TP 2ND CHOICE MUSCLE PAIN 06/13/21 11:00 Al Hydroxide/Mg Hydroxide (Mylanta Plus Xs) 15 ml PRN AFTMEALHC PRN PO DYSPEPSIA 06/13/21 11:00 06/13/21 11:08 DC Magnesium Hydroxide (Milk Of Magnesia) 2,400 mg PRN QHS PRN PO CONSTIPATION 06/13/21 11:00 06/13/21 11:08 DC Acetaminophen (Tylenol) 650 mg PRN Q6HRS PRN PO MILD PAIN / TEMP > 100.3'F 06/13/21 12:45 06/26/21 19:35 Bisacodyl (Fleet Bisacodyl) 10 mg PRN DAILY PRN RC 2nd choice CONSTIPATION 06/13/21 12:45 Diclofenac Sodium (Voltaren) 1 will PRN BID PRN TP 1st choice muscle PAIN 06/13/21 12:45 06/24/21 00:30 Divalproex Sodium (Depakote Er) 250 mg TID PO 06/13/21 14:00 06/14/21 13:29 DC 06/14/21 09:00 Furosemide (Lasix) 20 mg DAILY PO 06/14/21 09:00 06/26/21 08:21 Lidocaine (Lidoderm) 1 patch PRN DAILY PRN TP muscle PAIN 06/13/21 12:45 06/15/21 10:37 DC 06/14/21 06:39 Lisinopril (Prinivil) 10 mg DAILY PO 06/14/21 09:00 06/26/21 08:23 Al Hydroxide/Mg Hydroxide (Mylanta Plus Xs) 15 ml PRN AFTMEALHC PRN PO DYSPEPSIA 06/13/21 12:45 Potassium Chloride (Klor-Con) 20 meq DAILY PO 06/14/21 09:00 06/26/21 08:22 Prazosin HCl (Minipress) 3 mg DAILY PO 06/14/21 09:00 06/26/21 08:20 Quetiapine Fumarate (SEROquel) 100 mg 0900,1400 PO 06/13/21 14:00 06/18/21 16:54 DC 06/18/21 14:09 Quetiapine Fumarate (SEROquel) 1,250 mg PRN Q8HRS PRN PO 3RD CHOICE FOR ANXIETY 06/13/21 12:45 06/13/21 13:24 DC Quetiapine Fumarate (SEROquel) 200 mg QHS PO 06/13/21 21:00 06/18/21 16:54 DC 06/17/21 20:01 Artificial Tears (Artificial Tears) 1 drop PRN DAILY PRN OU DRY EYE 06/13/21 13:30 Docusate Sodium (Colace) 100 mg BID PO 06/13/21 21:00 06/15/21 21:58 DC 06/15/21 20:31 Loperamide HCl (Imodium) 2 mg PRN QID PRN PO DIARRHEA 06/13/21 13:15 Magnesium Hydroxide (Milk Of Magnesia) 2,400 mg PRN QHS PRN PO 1st choice CONSTIPATION 06/13/21 13:15 Non-Formulary Medication (Methyl Salicylate/ Menthol (Bengay Greaseless Cream)) 1 will PRN QID PRN TP MUSCLE PAIN 06/13/21 12:45 UNV Quetiapine Fumarate (SEROquel) 25 mg PRN Q8HRS PRN PO ANXIETY 06/13/21 14:00 06/17/21 17:39 DC 06/17/21 12:06 Divalproex Sodium (Depakote Sprinkles) 250 mg TID PO 06/14/21 14:00 06/15/21 21:58 DC 06/15/21 20:31 Fluvoxamine Maleate (Luvox) 25 mg DAILY PO 06/15/21 09:00 06/26/21 08:21 Lidocaine (Lidoderm) 1 patch DAILY TP 06/15/21 11:00 06/26/21 08:24 Miscellaneous (Lidoderm Patch Removal) 1 ea QHS MC 06/15/21 21:00 06/26/21 19:35 Valproic Acid (Depakene) 250 mg [id number] PO 06/16/21 09:00 06/18/21 16:54 DC 06/18/21 14:09 Docusate Sodium (Colace Solution) 100 mg BID PO 06/16/21 09:00 06/26/21 19:34 Mirtazapine (Remeron) 7.5 mg QHS PO 06/15/21 22:45 06/26/21 19:34 Trazodone HCl (Desyrel) 50 mg PRN QHS PRN PO INSOMNIA, MAY REPEAT X1 06/15/21 22:45 06/21/21 20:02 DC 06/20/21 22:40 Olanzapine (ZyPREXA ZYDIS) 2.5 mg PRN Q2HRS PRN PO PSYCHOSIS 06/17/21 17:45 06/26/21 21:00 Valproic Acid (Depakene) 250 mg 0900,1400 PO 06/19/21 09:00 06/26/21 12:25 Valproic Acid (Depakene) 500 mg QHS PO 06/18/21 21:00 06/26/21 19:35 Risperidone (RisperDAL) 0.25 mg 0900,1300,1700 PO 06/18/21 17:00 06/26/21 17:20 Ondansetron HCl (Zofran Odt) 4 mg PRN Q8HRS PRN PO NAUSEA/VOMITING 06/20/21 16:15 Melatonin (Melatonin) 3 mg PRN QHS PRN PO INSOMNIA 06/21/21 00:45 06/21/21 20:02 DC 06/21/21 00:59 Meloxicam (Mobic) 7.5 mg DAILY PO 06/22/21 09:00 06/26/21 08:53 Melatonin (Melatonin) 3 mg QHS PO 06/21/21 20:00 06/26/21 19:34 Trazodone HCl (Desyrel) 100 mg PRN QHS PRN PO INSOMNIA, JUNE REPEAT X1 06/21/21 20:15 06/26/21 21:00 Polyethylene Glycol (miraLAX) 17 gm DAILY PO 06/26/21 09:00 06/26/21 08:22 Current Medications Medications (Trade) Dose Ordered Sig/Abundio Route PRN Reason Start Time Stop Time Status Last Admin Dose Admin Polyethylene Glycol (miraLAX) 17 gm DAILY PO 06/26/21 09:00 06/26/21 08:22 I have reviewed the current psychotropics carefully including drug interactions. Risk benefit ratio favors no change other than as noted in my dictated progress note. Diagnosis: Problems: (1) Impulse control disorder, unspecified (2) Anxiety disorder, unspecified (3) Dementia, vascular, with depression (4) Dementia, vascular, with delusions (5) Dementia in Alzheimer's disease with depression (6) Dementia in Alzheimer's disease with delusions (7) Dementia of the Alzheimer's type with early onset with behavioral disturbance (8) Major neurocognitive disorder (9) PTSD (post-traumatic stress disorder) DUANE NINO MD June 26, 2021 21:50
[2021-06-26 23:32] LABS: CLARITY,URINE CLEAR; COLOR,URINE YELLOW; GLUCOSE,URINE NEG (NEG)
[2021-06-26 23:33] LABS: BACTERIA,URINE 0 /HPF (0-FEW); NITRITE,URINE NEG (NEG); RBC,URINE 0 /HPF (0-2); SQUAMOUS EPITHELIAL CELL,UR OCC /LPF; WBC,URINE 0 /HPF (0-4)
[2021-06-27 06:01] VITALS: BP 149/81
[2021-06-27] MEDS: VALPROATE ACID 250 MG/5 ML ORAL SOLUTION PO SCH ×3 (08:22→19:38)
[2021-06-27] MEDS: POLYETHYLENE GLYCOL 3350 17 GM PACKET. PO SCH (08:22)
[2021-06-27] MEDS: PRAZOSIN 1 MG CAPSULE. PO SCH (08:23)
--- NOTE | 2021-06-27 08:23 | PDOC ---
Exam Note: Raman Note: This note is a late entry for 06/26/2021 covers elements not covered in my initial note. Subjective: The patient was seen individually on 06/26/2021, discussed and reviewed the chart with Kacy MONTEMAYOR. There has been Covid exposure on the unit and the unit has been placed on quarantine as determined by Infectious Disease Department. The patient slept 5-1/4 hours last night. He had a very difficult day. He remains confused, disorganized. He has been taking blankets and sheets out of the room of other patients and removing trash cans from the room. He has been urinating inappropriate places and urinated in the hallway. He had a bowel movement in the hallway and staff took him back to shower and change him and he was quite aggressive. He did receive Zyprexa p.r.n. and may increase Depakene since level at last check 48 slightly subtherapeutic, may need to increase Luvox as well. We will give it another day before deciding. Review of Systems: No CV, , pulmonary, eye system symptoms on review. Reliability poor. Mental Status Exam: Patient is oriented to himself. Insight and judgment, recent and remote memory, attention and concentration, fund of knowledge is poor consistent with his diagnosis. Laboratory Data: Reviewed. Impression: Major neurocognitive disorder, Alzheimer, vascular with delusion, depression, behavioral disturbance. Anxiety disorder unspecified. Impulse control disorder unspecified. Plan: Continue on his current psychotropics. Reviewed drug interactions and risk-benefit ratio. Assessment: Vital Signs/I&O: Vital Signs Date Time Temp Pulse Resp B/P (MAP) Pulse Ox O2 Delivery O2 Flow Rate FiO2 06/27/21 06:01 97.1 74 18 149/81 (103) 96 Room Air I & O 06/26/21 06/26/21 06/27/21 15:00 23:00 07:00 Intake Total 360 ml 120 ml Balance 360 ml 120 ml Labs: Laboratory Tests Test 06/26/21 22:30 Urine Collection Type Unknown Urine Color Yellow Urine Clarity Clear Urine pH 6.5 Urine Specific [place] 1.025 Urine Protein Neg (NEG-TRACE) Urine Glucose (UA) Neg mg/dL (NEG) Urine Ketones (Stick) 15 mg/dL (NEG) Urine Blood Neg (NEG) Urine Nitrite Neg (NEG) Urine Bilirubin Neg (NEG) Urine Urobilinogen Dipstick 1.0 mg/dL (0.2 mg/dL) Urine Leukocyte Esterase Neg (NEG) Urine RBC 0 /HPF (0-2) Urine WBC 0 /HPF (0-4) Urine Squamous Epithelial Cells Occ /LPF Urine Bacteria 0 /HPF (0-FEW) Current Medications: Meds: Current Medications Medications (Trade) Dose Ordered Sig/Abundio Route PRN Reason Start Time Stop Time Status Last Admin Dose Admin Polyethylene Glycol (miraLAX) 17 gm DAILY PO 06/26/21 09:00 06/26/21 08:22 I have reviewed the current psychotropics carefully including drug interactions. Risk benefit ratio favors no change other than as noted in my dictated progress note. 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
[2021-06-27] MEDS: risperiDONE 0.25 MG TABLET. PO SCH ×3 (08:24→17:15)
[2021-06-27] MEDS: LISINOPRIL 10 MG TABLET PO SCH (08:24)
[2021-06-27] MEDS: FUROSEMIDE 20 MG TABLET PO SCH (08:24)
[2021-06-27] MEDS: DOCUSATE 100 MG/10 ML SOLUTION. PO SCH ×2 (08:25→19:39)
[2021-06-27] MEDS: POTASSIUM CHLORIDE 20 MEQ TABLET.ER. PO SCH (08:25)
[2021-06-27] MEDS: LIDOCAINE (700MG/PATCH) PATCH. TP SCH (08:26)
[2021-06-27] MEDS ORDERED: VALPROATE ACID 250 MG/5 ML ORAL SOLUTION PO ONE (11:15)
[2021-06-27 11:36] LABS: BASO % 1 % (0-3); EOS # 0.2 x10^3/uL (0.0-0.7); EOS % 5 % (0-3); HEMATOCRIT 34.9 % (39.0-53.0); HEMOGLOBIN 11.4 g/dL (13.0-17.5); LYMPH # 0.9 x10^3/uL (1.0-4.8); LYMPH % 25 % (24-48); MEAN CORPUSCULAR HEMOGLOBIN 29 pg (25-35); MEAN CORPUSCULAR HGB CONC 33 g/dL (31-37); MEAN CORPUSCULAR VOLUME 89 fL (79-100); MONO # 0.5 x10^3/uL (0.0-1.1); MONO % 15 % (0-9); NEUT # 1.9 x10^3uL (1.8-7.7); NEUT % 55 % (31-73); PLATELET COUNT 116 x10^3/uL (140-400); RED BLOOD COUNT 3.95 x10^6/uL (4.30-5.70); RED CELL DISTRIBUTION WIDTH 14.5 % (11.5-14.5); WHITE BLOOD COUNT 3.5 x10^3/uL (4.0-11.0)
[2021-06-27 11:54] LABS: ALBUMIN 3.2 g/dL (3.4-5.0); ALBUMIN/GLOBULIN RATIO 0.9 (1.0-1.7); CALCIUM 8.4 mg/dL (8.5-10.1); CREATININE 1.1 mg/dL (0.7-1.3); GFR 64.7; POTASSIUM 4.5 mmol/L (3.5-5.1); TOTAL BILIRUBIN 0.4 mg/dL (0.2-1.0); TOTAL PROTEIN 6.6 g/dL (6.4-8.2)
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
[2021-06-27 16:37] VITALS: BP 106/54
[2021-06-27] MEDS: traZODone 100 MG TABLET. PO PRN (19:39)
[2021-06-27] MEDS: ACETAMINOPHEN 325 MG TABLET PO PRN (19:39)
[2021-06-27] MEDS: MELATONIN 3 MG TABLET PO SCH (19:39)
[2021-06-27] MEDS: PATCH REMOVAL. MC SCH (19:39)
[2021-06-27] MEDS: MIRTAZAPINE 7.5 MG TABLET. PO SCH (19:39)
--- NOTE | 2021-06-27 20:59 | PDOC ---
Exam Note: Raman Note: Please also refer to the separate dictated note~for this date of service dictated separately.~Patient seen individually. Discussed the patient with Nursing staff reviewed the chart.~Reviewed interim history and current functioning. Reviewed vital signs,~Labs/ Radiology~and current medications noted below. Continue current treatment with the changes noted in the dictated addendum note Assessment: Vital Signs/I&O: Vital Signs Date Time Temp Pulse Resp B/P (MAP) Pulse Ox O2 Delivery O2 Flow Rate FiO2 06/27/21 16:37 98.1 87 18 106/54 (71) 95 06/27/21 06:01 Room Air I & O 06/26/21 06/26/21 06/27/21 15:00 23:00 07:00 Intake Total 360 ml 120 ml Balance 360 ml 120 ml Labs: Laboratory Tests Test 06/26/21 22:30 06/27/21 11:28 Urine Collection Type Unknown Urine Color Yellow Urine Clarity Clear Urine pH 6.5 Urine Specific [place] 1.025 Urine Protein Neg (NEG-TRACE) Urine Glucose (UA) Neg mg/dL (NEG) Urine Ketones (Stick) 15 mg/dL (NEG) Urine Blood Neg (NEG) Urine Nitrite Neg (NEG) Urine Bilirubin Neg (NEG) Urine Urobilinogen Dipstick 1.0 mg/dL (0.2 mg/dL) Urine Leukocyte Esterase Neg (NEG) Urine RBC 0 /HPF (0-2) Urine WBC 0 /HPF (0-4) Urine Squamous Epithelial Cells Occ /LPF Urine Bacteria 0 /HPF (0-FEW) White Blood Count 3.5 x10^3/uL (4.0-11.0) L Red Blood Count 3.95 x10^6/uL (4.30-5.70) L Hemoglobin 11.4 g/dL (13.0-17.5) L Hematocrit 34.9 % (39.0-53.0) L Mean Corpuscular Volume 89 fL (79-100) Mean Corpuscular Hemoglobin 29 pg (25-35) Mean Corpuscular Hemoglobin Concent 33 g/dL (31-37) Red Cell Distribution Width 14.5 % (11.5-14.5) Platelet Count 116 x10^3/uL (140-400) L Neutrophils (%) (Auto) 55 % (31-73) Lymphocytes (%) (Auto) 25 % (24-48) Monocytes (%) (Auto) 15 % (0-9) H Eosinophils (%) (Auto) 5 % (0-3) H Basophils (%) (Auto) 1 % (0-3) Neutrophils # (Auto) 1.9 x10^3uL (1.8-7.7) Lymphocytes # (Auto) 0.9 x10^3/uL (1.0-4.8) L Monocytes # (Auto) 0.5 x10^3/uL (0.0-1.1) Eosinophils # (Auto) 0.2 x10^3/uL (0.0-0.7) Basophils # (Auto) 0.0 x10^3/uL (0.0-0.2) Sodium Level 142 mmol/L (136-145) Potassium Level 4.5 mmol/L (3.5-5.1) Chloride Level 107 mmol/L (98-107) Carbon Dioxide Level 28 mmol/L (21-32) Anion Gap 7 (6-14) Blood Urea Nitrogen 39 mg/dL (8-26) H Creatinine 1.1 mg/dL (0.7-1.3) Estimated GFR (Cockcroft-Gault) 64.7 BUN/Creatinine Ratio 35 (6-20) H Glucose Level 102 mg/dL (70-99) H Calcium Level 8.4 mg/dL (8.5-10.1) L Total Bilirubin 0.4 mg/dL (0.2-1.0) Aspartate Amino Transferase (AST) 17 U/L (15-37) Alanine Aminotransferase (ALT) 27 U/L (16-63) Alkaline Phosphatase 50 U/L (46-116) Total Protein 6.6 g/dL (6.4-8.2) Albumin 3.2 g/dL (3.4-5.0) L Albumin/Globulin Ratio 0.9 (1.0-1.7) L Current Medications: Meds: Laboratory Tests Test 06/26/21 22:30 06/27/21 11:28 Urine Collection Type Unknown Urine Color Yellow Urine Clarity Clear Urine pH 6.5 Urine Specific [place] 1.025 Urine Protein Neg Urine Glucose (UA) Neg mg/dL Urine Ketones (Stick) 15 mg/dL Urine Blood Neg Urine Nitrite Neg Urine Bilirubin Neg Urine Urobilinogen Dipstick 1.0 mg/dL Urine Leukocyte Esterase Neg Urine RBC 0 /HPF Urine WBC 0 /HPF Urine Squamous Epithelial Cells Occ /LPF Urine Bacteria 0 /HPF White Blood Count 3.5 x10^3/uL Red Blood Count 3.95 x10^6/uL Hemoglobin 11.4 g/dL Hematocrit 34.9 % Mean Corpuscular Volume 89 fL Mean Corpuscular Hemoglobin 29 pg Mean Corpuscular Hemoglobin Concent 33 g/dL Red Cell Distribution Width 14.5 % Platelet Count 116 x10^3/uL Neutrophils (%) (Auto) 55 % Lymphocytes (%) (Auto) 25 % Monocytes (%) (Auto) 15 % Eosinophils (%) (Auto) 5 % Basophils (%) (Auto) 1 % Neutrophils # (Auto) 1.9 x10^3uL Lymphocytes # (Auto) 0.9 x10^3/uL Monocytes # (Auto) 0.5 x10^3/uL Eosinophils # (Auto) 0.2 x10^3/uL Basophils # (Auto) 0.0 x10^3/uL Sodium Level 142 mmol/L Potassium Level 4.5 mmol/L Chloride Level 107 mmol/L Carbon Dioxide Level 28 mmol/L Anion Gap 7 Blood Urea Nitrogen 39 mg/dL Creatinine 1.1 mg/dL Estimated GFR (Cockcroft-Gault) 64.7 BUN/Creatinine Ratio 35 Glucose Level 102 mg/dL Calcium Level 8.4 mg/dL Total Bilirubin 0.4 mg/dL Aspartate Amino Transf (AST/SGOT) 17 U/L Alanine Aminotransferase (ALT/SGPT) 27 U/L Alkaline Phosphatase 50 U/L Total Protein 6.6 g/dL Albumin 3.2 g/dL Albumin/Globulin Ratio 0.9 Current Medications Medications (Trade) Dose Ordered Sig/Abundio Route PRN Reason Start Time Stop Time Status Last Admin Dose Admin Acetaminophen (Tylenol) 650 mg PRN Q6HRS PRN PO MILD PAIN / TEMP > 100.3'F 06/13/21 11:00 06/13/21 11:08 DC Multi-Ingredient Ointment (Analgesic [place]) 1 will PRN QID PRN TP 2ND CHOICE MUSCLE PAIN 06/13/21 11:00 Al Hydroxide/Mg Hydroxide (Mylanta Plus Xs) 15 ml PRN AFTMEALHC PRN PO DYSPEPSIA 06/13/21 11:00 06/13/21 11:08 DC Magnesium Hydroxide (Milk Of Magnesia) 2,400 mg PRN QHS PRN PO CONSTIPATION 06/13/21 11:00 06/13/21 11:08 DC Acetaminophen (Tylenol) 650 mg PRN Q6HRS PRN PO MILD PAIN / TEMP > 100.3'F 06/13/21 12:45 06/27/21 19:39 Bisacodyl (Fleet Bisacodyl) 10 mg PRN DAILY PRN RC 2nd choice CONSTIPATION 06/13/21 12:45 Diclofenac Sodium (Voltaren) 1 will PRN BID PRN TP 1st choice muscle PAIN 06/13/21 12:45 06/24/21 00:30 Divalproex Sodium (Depakote Er) 250 mg TID PO 06/13/21 14:00 06/14/21 13:29 DC 06/14/21 09:00 Furosemide (Lasix) 20 mg DAILY PO 06/14/21 09:00 06/27/21 17:11 DC 06/27/21 08:24 Lidocaine (Lidoderm) 1 patch PRN DAILY PRN TP muscle PAIN 06/13/21 12:45 06/15/21 10:37 DC 06/14/21 06:39 Lisinopril (Prinivil) 10 mg DAILY PO 06/14/21 09:00 06/27/21 08:24 Al Hydroxide/Mg Hydroxide (Mylanta Plus Xs) 15 ml PRN AFTMEALHC PRN PO DYSPEPSIA 06/13/21 12:45 Potassium Chloride (Klor-Con) 20 meq DAILY PO 06/14/21 09:00 06/27/21 08:25 Prazosin HCl (Minipress) 3 mg DAILY PO 06/14/21 09:00 06/27/21 08:23 Quetiapine Fumarate (SEROquel) 100 mg 0900,1400 PO 06/13/21 14:00 06/18/21 16:54 DC 06/18/21 14:09 Quetiapine Fumarate (SEROquel) 1,250 mg PRN Q8HRS PRN PO 3RD CHOICE FOR ANXIETY 06/13/21 12:45 06/13/21 13:24 DC Quetiapine Fumarate (SEROquel) 200 mg QHS PO 06/13/21 21:00 06/18/21 16:54 DC 06/17/21 20:01 Artificial Tears (Artificial Tears) 1 drop PRN DAILY PRN OU DRY EYE 06/13/21 13:30 Docusate Sodium (Colace) 100 mg BID PO 06/13/21 21:00 06/15/21 21:58 DC 06/15/21 20:31 Loperamide HCl (Imodium) 2 mg PRN QID PRN PO DIARRHEA 06/13/21 13:15 Magnesium Hydroxide (Milk Of Magnesia) 2,400 mg PRN QHS PRN PO 1st choice CONSTIPATION 06/13/21 13:15 Non-Formulary Medication (Methyl Salicylate/ Menthol (Bengay Greaseless Cream)) 1 will PRN QID PRN TP MUSCLE PAIN 06/13/21 12:45 UNV Quetiapine Fumarate (SEROquel) 25 mg PRN Q8HRS PRN PO ANXIETY 06/13/21 14:00 06/17/21 17:39 DC 06/17/21 12:06 Divalproex Sodium (Depakote Sprinkles) 250 mg TID PO 06/14/21 14:00 06/15/21 21:58 DC 06/15/21 20:31 Fluvoxamine Maleate (Luvox) 25 mg DAILY PO 06/15/21 09:00 06/27/21 08:24 Lidocaine (Lidoderm) 1 patch DAILY TP 06/15/21 11:00 06/27/21 08:26 Miscellaneous (Lidoderm Patch Removal) 1 ea QHS MC 06/15/21 21:00 06/27/21 19:39 Valproic Acid (Depakene) 250 mg [id number] PO 06/16/21 09:00 06/18/21 16:54 DC 06/18/21 14:09 Docusate Sodium (Colace Solution) 100 mg BID PO 06/16/21 09:00 06/27/21 19:39 Mirtazapine (Remeron) 7.5 mg QHS PO 06/15/21 22:45 06/27/21 19:39 Trazodone HCl (Desyrel) 50 mg PRN QHS PRN PO INSOMNIA, MAY REPEAT X1 06/15/21 22:45 06/21/21 20:02 DC 06/20/21 22:40 Olanzapine (ZyPREXA ZYDIS) 2.5 mg PRN Q2HRS PRN PO PSYCHOSIS 06/17/21 17:45 06/26/21 23:47 Valproic Acid (Depakene) 250 mg 0900,1400 PO 06/19/21 09:00 06/27/21 11:02 DC 06/27/21 08:22 Valproic Acid (Depakene) 500 mg QHS PO 06/18/21 21:00 06/27/21 11:02 DC 06/26/21 19:35 Risperidone (RisperDAL) 0.25 mg 0900,1300,1700 PO 06/18/21 17:00 06/27/21 17:15 Ondansetron HCl (Zofran Odt) 4 mg PRN Q8HRS PRN PO NAUSEA/VOMITING 06/20/21 16:15 Melatonin (Melatonin) 3 mg PRN QHS PRN PO INSOMNIA 06/21/21 00:45 06/21/21 20:02 DC 06/21/21 00:59 Meloxicam (Mobic) 7.5 mg DAILY PO 06/22/21 09:00 06/27/21 17:11 DC 06/26/21 08:53 Melatonin (Melatonin) 3 mg QHS PO 06/21/21 20:00 06/27/21 19:39 Trazodone HCl (Desyrel) 100 mg PRN QHS PRN PO INSOMNIA, MAY REPEAT X1 06/21/21 20:15 06/27/21 19:39 Polyethylene Glycol (miraLAX) 17 gm DAILY PO 06/26/21 09:00 06/27/21 08:22 Valproic Acid (Depakene) 500 mg 0900,2100 PO 06/27/21 21:00 06/27/21 19:38 Valproic Acid (Depakene) 250 mg 1400 PO 06/27/21 14:00 06/27/21 12:39 Valproic Acid (Depakene) 250 mg 1X ONCE PO 06/27/21 11:15 06/27/21 11:16 DC 06/27/21 11:15 Current Medications Medications (Trade) Dose Ordered Sig/Abundio Route PRN Reason Start Time Stop Time Status Last Admin Dose Admin Valproic Acid (Depakene) 500 mg 0900,2100 PO 06/27/21 21:00 06/27/21 19:38 Valproic Acid (Depakene) 250 mg 1400 PO 06/27/21 14:00 06/27/21 12:39 Valproic Acid (Depakene) 250 mg 1X ONCE PO 06/27/21 11:15 06/27/21 11:16 DC 06/27/21 11:15 I have reviewed the current psychotropics carefully including drug interactions. Risk benefit ratio favors no change other than as noted in my dictated progress note. Diagnosis: Problems: (1) Impulse control disorder, unspecified (2) Anxiety disorder, unspecified (3) Dementia, vascular, with depression (4) Dementia, vascular, with delusions (5) Dementia in Alzheimer's disease with depression (6) Dementia in Alzheimer's disease with delusions (7) Dementia of the Alzheimer's type with early onset with behavioral disturbance (8) Major neurocognitive disorder (9) PTSD (post-traumatic stress disorder) DUANE NINO MD June 27, 2021 20:59
[2021-06-28 06:20] VITALS: BP 167/82
[2021-06-28] MEDS: DOCUSATE 100 MG/10 ML SOLUTION. PO SCH ×2 (07:41→20:47)
[2021-06-28] MEDS: VALPROATE ACID 250 MG/5 ML ORAL SOLUTION PO SCH ×3 (07:42→20:47)
[2021-06-28] MEDS: PRAZOSIN 1 MG CAPSULE. PO SCH (07:43)
[2021-06-28] MEDS: risperiDONE 0.25 MG TABLET. PO SCH ×3 (07:43→17:19)
[2021-06-28] MEDS: LISINOPRIL 10 MG TABLET PO SCH (07:43)
[2021-06-28] MEDS: LIDOCAINE (700MG/PATCH) PATCH. TP SCH (07:44)
[2021-06-28] MEDS: POTASSIUM CHLORIDE 20 MEQ TABLET.ER. PO SCH (07:44)
[2021-06-28] MEDS: POLYETHYLENE GLYCOL 3350 17 GM PACKET. PO SCH (07:44)
--- NOTE | 2021-06-28 16:37 | RAD ---
CT abdomen pelvis without contrast dated 06/28/2021. COMPARISON: None. INDICATION: Right upper quadrant pain. TECHNIQUE: Contiguous axial imaging the abdomen pelvis performed without the administration of IV or oral contra st. One or more of the following individualized dose reduction techniques were utilized for this examinat ion: 1. Automated exposure control 2. Adjustment of the mA and/or kV according to patient size 3. Use of iterative reconstruction technique. FINDINGS: Limited images of the lung bases are clear. Upper portions of the liver and spleen are excluded on th is exam. Gallbladder surgically absent. The pancreas is atrophic. Adrenal glands unremarkable. Kidneys are symmetric in size. No stone or hydronephrosis. No inflammatory stranding in the perinephr ic fat. Unopacified GI tract normal in caliber and contour. No bowel wall thickening. Evaluation is somewhat limited by motion artifact. No ascites or lymphadenopathy. Abdominal aorta normal in caliber. The will endix is not well visualized. No inflammatory changes in the right lower quadrant. Images of pelvis show nondistended urinary bladder. No free fluid. No pelvic adenopathy. Small bilate ral inguinal hernia containing only fat. Bone window show no acute finding. Multilevel spondylosis. IMPRESSION: 1. Limited exam. No apparent acute abnormality. 2. No renal stone or hydronephrosis. 3. Status post cholecystectomy Electronically signed by: Channing Chavez MD (06/28/2021 4:35 PM) [id number]
[2021-06-28] MEDS: PATCH REMOVAL. MC SCH (19:59)
[2021-06-28] MEDS: MIRTAZAPINE 7.5 MG TABLET. PO SCH (20:46)
[2021-06-28] MEDS: traZODone 100 MG TABLET. PO PRN (20:46)
[2021-06-28] MEDS: MELATONIN 3 MG TABLET PO SCH (20:47)
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
--- NOTE | 2021-06-28 21:57 | PDOC ---
Exam Note: Raman Note: Please also refer to the separate dictated note~for this date of service dictated separately.~Patient seen individually. Discussed the patient with Nursing staff reviewed the chart.~Reviewed interim history and current functioning. Reviewed vital signs,~Labs/ Radiology~and current medications noted below. Continue current treatment with the changes noted in the dictated addendum note Assessment: Vital Signs/I&O: Vital Signs Date Time Temp Pulse Resp B/P (MAP) Pulse Ox O2 Delivery O2 Flow Rate FiO2 06/28/21 07:43 83 167/82 06/28/21 06:20 97.3 18 99 Room Air I & O 06/27/21 06/27/21 06/28/21 14:59 22:59 06:59 Intake Total 720 ml Balance 720 ml Current Medications: Meds: Current Medications Medications (Trade) Dose Ordered Sig/Abundio Route PRN Reason Start Time Stop Time Status Last Admin Dose Admin Acetaminophen (Tylenol) 650 mg PRN Q6HRS PRN PO MILD PAIN / TEMP > 100.3'F 06/13/21 11:00 06/13/21 11:08 DC Multi-Ingredient Ointment (Analgesic [place]) 1 will PRN QID PRN TP 2ND CHOICE MUSCLE PAIN 06/13/21 11:00 Al Hydroxide/Mg Hydroxide (Mylanta Plus Xs) 15 ml PRN AFTMEALHC PRN PO DYSPEPSIA 06/13/21 11:00 06/13/21 11:08 DC Magnesium Hydroxide (Milk Of Magnesia) 2,400 mg PRN QHS PRN PO CONSTIPATION 06/13/21 11:00 06/13/21 11:08 DC Acetaminophen (Tylenol) 650 mg PRN Q6HRS PRN PO MILD PAIN / TEMP > 100.3'F 06/13/21 12:45 06/27/21 19:39 Bisacodyl (Fleet Bisacodyl) 10 mg PRN DAILY PRN RC 2nd choice CONSTIPATION 06/13/21 12:45 Diclofenac Sodium (Voltaren) 1 will PRN BID PRN TP 1st choice muscle PAIN 06/13/21 12:45 06/24/21 00:30 Divalproex Sodium (Depakote Er) 250 mg TID PO 06/13/21 14:00 06/14/21 13:29 DC 06/14/21 09:00 Furosemide (Lasix) 20 mg DAILY PO 06/14/21 09:00 06/27/21 17:11 DC 06/27/21 08:24 Lidocaine (Lidoderm) 1 patch PRN DAILY PRN TP muscle PAIN 06/13/21 12:45 06/15/21 10:37 DC 06/14/21 06:39 Lisinopril (Prinivil) 10 mg DAILY PO 06/14/21 09:00 06/28/21 07:43 Al Hydroxide/Mg Hydroxide (Mylanta Plus Xs) 15 ml PRN AFTMEALHC PRN PO DYSPEPSIA 06/13/21 12:45 Potassium Chloride (Klor-Con) 20 meq DAILY PO 06/14/21 09:00 06/28/21 07:44 Prazosin HCl (Minipress) 3 mg DAILY PO 06/14/21 09:00 06/28/21 07:43 Quetiapine Fumarate (SEROquel) 100 mg 0900,1400 PO 06/13/21 14:00 06/18/21 16:54 DC 06/18/21 14:09 Quetiapine Fumarate (SEROquel) 1,250 mg PRN Q8HRS PRN PO 3RD CHOICE FOR ANXIETY 06/13/21 12:45 06/13/21 13:24 DC Quetiapine Fumarate (SEROquel) 200 mg QHS PO 06/13/21 21:00 06/18/21 16:54 DC 06/17/21 20:01 Artificial Tears (Artificial Tears) 1 drop PRN DAILY PRN OU DRY EYE 06/13/21 13:30 Docusate Sodium (Colace) 100 mg BID PO 06/13/21 21:00 06/15/21 21:58 DC 06/15/21 20:31 Loperamide HCl (Imodium) 2 mg PRN QID PRN PO DIARRHEA 06/13/21 13:15 Magnesium Hydroxide (Milk Of Magnesia) 2,400 mg PRN QHS PRN PO 1st choice CONSTIPATION 06/13/21 13:15 Non-Formulary Medication (Methyl Salicylate/ Menthol (Bengay Greaseless Cream)) 1 will PRN QID PRN TP MUSCLE PAIN 06/13/21 12:45 UNV Quetiapine Fumarate (SEROquel) 25 mg PRN Q8HRS PRN PO ANXIETY 06/13/21 14:00 06/17/21 17:39 DC 06/17/21 12:06 Divalproex Sodium (Depakote Sprinkles) 250 mg TID PO 06/14/21 14:00 06/15/21 21:58 DC 06/15/21 20:31 Fluvoxamine Maleate (Luvox) 25 mg DAILY PO 06/15/21 09:00 06/28/21 07:43 Lidocaine (Lidoderm) 1 patch DAILY TP 06/15/21 11:00 06/28/21 07:44 Miscellaneous (Lidoderm Patch Removal) 1 ea QHS MC 06/15/21 21:00 06/28/21 19:59 Valproic Acid (Depakene) 250 mg NSD120 PO 06/16/21 09:00 06/18/21 16:54 DC 06/18/21 14:09 Docusate Sodium (Colace Solution) 100 mg BID PO 06/16/21 09:00 06/28/21 20:47 Mirtazapine (Remeron) 7.5 mg QHS PO 06/15/21 22:45 06/28/21 20:46 Trazodone HCl (Desyrel) 50 mg PRN QHS PRN PO INSOMNIA, MAY REPEAT X1 06/15/21 22:45 06/21/21 20:02 DC 06/20/21 22:40 Olanzapine (ZyPREXA ZYDIS) 2.5 mg PRN Q2HRS PRN PO PSYCHOSIS 06/17/21 17:45 06/28/21 14:57 Valproic Acid (Depakene) 250 mg 0900,1400 PO 06/19/21 09:00 06/27/21 11:02 DC 06/27/21 08:22 Valproic Acid (Depakene) 500 mg QHS PO 06/18/21 21:00 06/27/21 11:02 DC 06/26/21 19:35 Risperidone (RisperDAL) 0.25 mg 0900,1300,1700 PO 06/18/21 17:00 06/28/21 17:19 Ondansetron HCl (Zofran Odt) 4 mg PRN Q8HRS PRN PO NAUSEA/VOMITING 06/20/21 16:15 Melatonin (Melatonin) 3 mg PRN QHS PRN PO INSOMNIA 06/21/21 00:45 06/21/21 20:02 DC 06/21/21 00:59 Meloxicam (Mobic) 7.5 mg DAILY PO 06/22/21 09:00 06/27/21 17:11 DC 06/26/21 08:53 Melatonin (Melatonin) 3 mg QHS PO 06/21/21 20:00 06/28/21 20:47 Trazodone HCl (Desyrel) 100 mg PRN QHS PRN PO INSOMNIA, MAY REPEAT X1 06/21/21 20:15 06/28/21 20:46 Polyethylene Glycol (miraLAX) 17 gm DAILY PO 06/26/21 09:00 06/28/21 07:44 Valproic Acid (Depakene) 500 mg 0900,2100 PO 06/27/21 21:00 06/28/21 20:47 Valproic Acid (Depakene) 250 mg 1400 PO 06/27/21 14:00 06/28/21 12:13 Valproic Acid (Depakene) 250 mg 1X ONCE PO 06/27/21 11:15 06/27/21 11:16 DC 06/27/21 11:15 I have reviewed the current psychotropics carefully including drug interactions. Risk benefit ratio favors no change other than as noted in my dictated progress note. Diagnosis: Problems: (1) Impulse control disorder, unspecified (2) Anxiety disorder, unspecified (3) Dementia, vascular, with depression (4) Dementia, vascular, with delusions (5) Dementia in Alzheimer's disease with depression (6) Dementia in Alzheimer's disease with delusions (7) Dementia of the Alzheimer's type with early onset with behavioral disturbance (8) Major neurocognitive disorder (9) PTSD (post-traumatic stress disorder) DUANE NINO MD June 28, 2021 21:57
[2021-06-29] MEDS: POTASSIUM CHLORIDE 20 MEQ TABLET.ER. PO SCH (07:26)
[2021-06-29] MEDS: POLYETHYLENE GLYCOL 3350 17 GM PACKET. PO SCH (07:26)
[2021-06-29] MEDS: LIDOCAINE (700MG/PATCH) PATCH. TP SCH (07:26)
[2021-06-29] MEDS: risperiDONE 0.25 MG TABLET. PO SCH ×3 (07:26→17:00)
[2021-06-29] MEDS: VALPROATE ACID 250 MG/5 ML ORAL SOLUTION PO SCH ×3 (07:27→20:14)
[2021-06-29] MEDS: PRAZOSIN 1 MG CAPSULE. PO SCH (07:27)
[2021-06-29] MEDS: DOCUSATE 100 MG/10 ML SOLUTION. PO SCH ×2 (07:28→20:14)
[2021-06-29] MEDS: LISINOPRIL 10 MG TABLET PO SCH (07:28)
--- NOTE | 2021-06-29 08:31 | PDOC ---
Exam Note: Raman Note: This note is a late entry for 06/28/2021 covers elements not covered in my initial note. Subjective: The patient was seen individually on 06/28/2021, discussed and reviewed the chart with Kacy MONTEMAYOR. The patient slept 4-1/4 hours last night. He was confused, irritable, resistive to cares and disorganized. Despite this he is less intrusive. He does urinate all over the hallway and nursing staff have put onesie on him so that his urination can be caught in a diaper. He is often wandering, looking for his father. At times he was stripping himself and was able to do this out of onesie as well. He has had some abdominal pain. Dr. Pappas has ordered a CT abdomen. We will defer this to Dr. Pappas. Review of Systems: No CV, , pulmonary, eye system symptoms on review. Reliability poor. Mental Status Exam: Patient is oriented to himself. I met with him in the hallway, walked with him in the hallway as part of this assessment. Insight and judgment, recent and remote memory, attention and concentration, fund of knowledge is poor consistent with his diagnosis. Laboratory Data: Reviewed. Impression: Major neurocognitive disorder, Alzheimer, vascular with delusion, depression, behavioral disturbance. Anxiety disorder unspecified. Impulse control disorder unspecified. Plan: Continue on his current psychotropics. Reviewed drug interactions and risk-benefit ratio. Repeat labs and valproic acid level. Adjust as clinically indicated. Dr. Zamora will cover for me from 06/29/2021 until 07/16/2021. Assessment: Vital Signs/I&O: Vital Signs Date Time Temp Pulse Resp B/P (MAP) Pulse Ox O2 Delivery O2 Flow Rate FiO2 06/29/21 07:28 83 167/82 06/28/21 06:20 97.3 18 99 Room Air I & O 06/28/21 06/28/21 06/29/21 15:00 23:00 07:00 Intake Total 580 ml 360 ml Balance 580 ml 360 ml Current Medications: I have reviewed the current psychotropics carefully including drug interactions. Risk benefit ratio favors no change other than as noted in my dictated progress note. Diagnosis: Problems: (1) Impulse control disorder, unspecified (2) Anxiety disorder, unspecified (3) Dementia, vascular, with depression (4) Dementia, vascular, with delusions (5) Dementia in Alzheimer's disease with depression (6) Dementia in Alzheimer's disease with delusions (7) Dementia of the Alzheimer's type with early onset with behavioral disturbance (8) Major neurocognitive disorder (9) PTSD (post-traumatic stress disorder) DUANE NINO MD June 29, 2021 08:31
[2021-06-29] MEDS: PATCH REMOVAL. MC SCH (19:36)
[2021-06-29] MEDS: MIRTAZAPINE 7.5 MG TABLET. PO SCH (20:14)
[2021-06-29] MEDS: MELATONIN 3 MG TABLET PO SCH (20:14)
[2021-06-29] MEDS: traZODone 100 MG TABLET. PO PRN ×2 (20:14→22:04)
--- NOTE | 2021-06-30 00:32 | PN ---
DATE: 06/29/2021 SUBJECTIVE: The patient was seen today, met with the staff. Chart reviewed and also covering for Dr. Davis. Staff reports continued behavior problems, resisted to care, confused, tend to wander a lot, difficult to redirect. He is also disorganized with his thinking. The patient is having difficulty with his communication. The patient recently had a CT abdomen, which was normal. OBSERVATION: VITAL SIGNS: The patient refused vitals. Slept only about 2 hours last night. GENERAL: The patient currently not having any other physical problems. No falls. CURRENT MEDICATIONS: Include Depakote 500 mg twice a day and 250 mg daily, trazodone 100 mg at night p.r.n., melatonin 3 mg at night, Risperdal 0.25 mg 3 times a day, mirtazapine 7.5 mg at night, Luvox 25 mg daily, prazosin 3 mg daily and also olanzapine 2.5 mg q. 2 hours p.r.n. The patient is not having any side effects to the medications. LABORATORY DATA: The patient's lab reviewed. The patient's Depakote level was 48. ASSESSMENT: 1. Dementia, most likely Alzheimer's with depression and behavioral disturbances. 2. Generalized anxiety disorder. 3. PTSD. PLAN: Continue with the current treatment plan. LENGTH OF STAY: Five to seven days. MARIAMA DR: Clive TID: [id number]
[2021-06-30 06:09] VITALS: BP 115/74
[2021-06-30] MEDS: POLYETHYLENE GLYCOL 3350 17 GM PACKET. PO SCH (08:07)
[2021-06-30] MEDS: DOCUSATE 100 MG/10 ML SOLUTION. PO SCH ×2 (08:07→20:21)
[2021-06-30] MEDS: VALPROATE ACID 250 MG/5 ML ORAL SOLUTION PO SCH ×3 (08:08→20:22)
[2021-06-30] MEDS: POTASSIUM CHLORIDE 20 MEQ TABLET.ER. PO SCH (08:08)
[2021-06-30] MEDS: PRAZOSIN 1 MG CAPSULE. PO SCH (08:09)
[2021-06-30] MEDS: LIDOCAINE (700MG/PATCH) PATCH. TP SCH (08:09)
[2021-06-30] MEDS: risperiDONE 0.25 MG TABLET. PO SCH ×3 (08:09→17:00)
[2021-06-30] MEDS: LISINOPRIL 10 MG TABLET PO SCH (08:09)
[2021-06-30] MEDS: PATCH REMOVAL. MC SCH (19:37)
[2021-06-30] MEDS: traZODone 100 MG TABLET. PO PRN (20:22)
[2021-06-30] MEDS: MIRTAZAPINE 7.5 MG TABLET. PO SCH (20:22)
[2021-06-30] MEDS: MELATONIN 3 MG TABLET PO SCH (20:22)
--- NOTE | 2021-06-30 23:18 | PN ---
DATE: 06/30/2021 SUBJECTIVE: The patient was seen today, met with the staff. Chart reviewed. Also, covering for Dr. Davis. Staff reports he continues to be irritable, resisted to care, disorganized with his thinking, difficult to redirect and increased agitation. OBSERVATION: VITAL SIGNS: Temperature 97.3, blood pressure 115/74, pulse 66, respirations 17, O2 sat 98%. GENERAL: Slept about 6 hours last night. The patient's appetite is fair. CURRENT MEDICATIONS: Include Depakote 500 mg twice a day and 250 mg daily, trazodone 100 mg at night p.r.n., also melatonin 3 mg at night, Risperdal 0.25 mg 3 times a day, mirtazapine 7.5 mg at night, Luvox 25 mg daily and prazosin 3 mg daily. The patient is not exhibiting any side effects. Staff reports no other problems. No falls. LABORATORY DATA: The patient's lab reviewed. ASSESSMENT: 1. Dementia, most likely Alzheimer's with the depression and behavioral disturbances. 2. Generalized anxiety disorder. 3. Posttraumatic stress disorder. PLAN: Continue with treatment. LENGTH OF STAY: Five to seven days. PELON DR: Clive TID: [id number]
[2021-07-01 05:43] VITALS: BP 137/62
[2021-07-01 07:11] LABS: BASO % 1 % (0-3); EOS # 0.3 x10^3/uL (0.0-0.7); EOS % 8 % (0-3); HEMATOCRIT 36.8 % (39.0-53.0); LYMPH % 29 % (24-48); MEAN CORPUSCULAR HEMOGLOBIN 29 pg (25-35); MEAN CORPUSCULAR HGB CONC 33 g/dL (31-37); MEAN CORPUSCULAR VOLUME 89 fL (79-100); MONO # 0.6 x10^3/uL (0.0-1.1); MONO % 16 % (0-9); NEUT # 1.6 x10^3uL (1.8-7.7); NEUT % 46 % (31-73); PLATELET COUNT 121 x10^3/uL (140-400); RED BLOOD COUNT 4.11 x10^6/uL (4.30-5.70); RED CELL DISTRIBUTION WIDTH 14.9 % (11.5-14.5); WHITE BLOOD COUNT 3.4 x10^3/uL (4.0-11.0)
[2021-07-01 07:19] LABS: ALBUMIN 3.3 g/dL (3.4-5.0); ALK PHOS 51 U/L (46-116); ALT (SGPT) 33 U/L (16-63); ANION GAP 5 (6-14); AST (SGOT) 22 U/L (15-37); BLOOD UREA NITROGEN 43 mg/dL (8-26); BUN/CREATININE RATIO 43 (6-20); CALCIUM 8.6 mg/dL (8.5-10.1); CARBON DIOXIDE 30 mmol/L (21-32); CHLORIDE 111 mmol/L (98-107); GFR 72.3; GLUCOSE 95 mg/dL (70-99); POTASSIUM 4.4 mmol/L (3.5-5.1); SODIUM 146 mmol/L (136-145); TOTAL BILIRUBIN 0.3 mg/dL (0.2-1.0); TOTAL PROTEIN 6.7 g/dL (6.4-8.2)
[2021-07-01 07:21] LABS: VAL ACID 46 mcg/mL (50-100)
[2021-07-01] MEDS: PRAZOSIN 1 MG CAPSULE. PO SCH (07:43)
[2021-07-01] MEDS: DOCUSATE 100 MG/10 ML SOLUTION. PO SCH ×2 (07:43→19:38)
[2021-07-01] MEDS: risperiDONE 0.25 MG TABLET. PO SCH ×3 (07:43→16:42)
[2021-07-01] MEDS: LISINOPRIL 10 MG TABLET PO SCH (07:43)
[2021-07-01] MEDS: POTASSIUM CHLORIDE 20 MEQ TABLET.ER. PO SCH (07:43)
[2021-07-01] MEDS: POLYETHYLENE GLYCOL 3350 17 GM PACKET. PO SCH (07:43)
[2021-07-01] MEDS: VALPROATE ACID 250 MG/5 ML ORAL SOLUTION PO SCH ×3 (07:45→19:38)
[2021-07-01 15:49] VITALS: BP 123/58
[2021-07-01] MEDS: PATCH REMOVAL. MC SCH (16:42)
[2021-07-01] MEDS: MIRTAZAPINE 7.5 MG TABLET. PO SCH (19:38)
[2021-07-01] MEDS: traZODone 100 MG TABLET. PO PRN (19:38)
[2021-07-01] MEDS: MELATONIN 3 MG TABLET PO SCH (19:38)
[2021-07-02 06:09] VITALS: BP 108/52
[2021-07-02] MEDS: POLYETHYLENE GLYCOL 3350 17 GM PACKET. PO SCH (07:41)
[2021-07-02] MEDS: risperiDONE 0.25 MG TABLET. PO SCH ×3 (08:13→16:25)
[2021-07-02] MEDS: PRAZOSIN 1 MG CAPSULE. PO SCH (08:13)
[2021-07-02] MEDS: LISINOPRIL 10 MG TABLET PO SCH (08:13)
[2021-07-02] MEDS: VALPROATE ACID 250 MG/5 ML ORAL SOLUTION PO SCH ×3 (08:14→19:24)
[2021-07-02] MEDS: POTASSIUM CHLORIDE 20 MEQ TABLET.ER. PO SCH (08:14)
[2021-07-02] MEDS: DOCUSATE 100 MG/10 ML SOLUTION. PO SCH ×2 (08:34→19:27)
--- NOTE | 2021-07-02 09:28 | PN ---
DATE: 07/01/2021 SUBJECTIVE: The patient was seen today, met with the staff. Chart reviewed and also covering for Dr. Davis. Also participated in the treatment review conference today. The patient continues to be agitated, confused, significant cognitive deficits, tend to wander. Staff reports no falls. OBSERVATION: VITAL SIGNS: Temperature 97.0, blood pressure 137/62, pulse 73, respirations 18, O2 sat 99%. GENERAL: Slept about 4 hours last night. The patient's appetite is fair. CURRENT MEDICATIONS: Valproic acid 500 mg twice a day and 250 mg daily, trazodone 100 mg at night p.r.n., melatonin 3 mg at night, Risperdal 0.25 mg 3 times a day, olanzapine 2.5 mg q. 2 hours p.r.n., mirtazapine 7.5 mg at night, fluvoxamine 25 mg daily, prazosin 3 mg daily. LABORATORY DATA: The patient's lab reviewed. ASSESSMENT: 1. Dementia, most likely Alzheimer's with depression and behavioral disturbances. 2. Generalized anxiety disorder. 3. Posttraumatic stress disorder. PLAN: To continue treatment. LENGTH OF STAY: Five to seven days. XI DR: Clive TID: [id number] [facility]
[2021-07-02 15:57] VITALS: BP 116/79
[2021-07-02] MEDS: MELATONIN 3 MG TABLET PO SCH (19:25)
[2021-07-02] MEDS: MIRTAZAPINE 7.5 MG TABLET. PO SCH (19:25)
[2021-07-02] MEDS: PATCH REMOVAL. MC SCH (19:27)
[2021-07-02] MEDS: traZODone 100 MG TABLET. PO PRN (19:30)
[2021-07-03 05:24] VITALS: BP 104/51
--- NOTE | 2021-07-03 06:33 | PN ---
DATE: 07/02/2021 SUBJECTIVE: The patient was seen today, met with the staff and chart reviewed and also covering for Dr. Davis. Staff reports he is still confused, wandering, disorganized, also delusional at times. The patient also has problems with his cognition, not able to hold a conversation and dependent on staff for ADLs. OBSERVATION: VITAL SIGNS: Temperature 98.1, blood pressure 116/79, pulse 71, respirations 20, O2 sat 96%. GENERAL: Slept only about an hour. CURRENT MEDICATIONS: Valproic acid 500 mg twice a day and 250 mg at 4:00 p.m., trazodone 100 mg at night p.r.n., melatonin 3 mg at night, Risperdal 0.25 mg 3 times a day, olanzapine 2.5 mg q. 2 hours p.r.n., mirtazapine 7.5 mg at night, fluvoxamine 25 mg daily, and prazosin 3 mg daily. LABORATORY DATA: The patient's lab reviewed. The patient's Depakote level 46. ASSESSMENT: 1. Dementia, most likely Alzheimer's with the depression and behavioral disturbances. 2. Generalized anxiety disorder. 3. Posttraumatic stress disorder . PLAN: To continue treatment. LENGTH OF STAY: 5-[address]: Clive TID: [id number] [facility]
[2021-07-03] MEDS: DOCUSATE 100 MG/10 ML SOLUTION. PO SCH ×2 (07:29→19:46)
[2021-07-03] MEDS: POLYETHYLENE GLYCOL 3350 17 GM PACKET. PO SCH (07:30)
[2021-07-03] MEDS: VALPROATE ACID 250 MG/5 ML ORAL SOLUTION PO SCH ×3 (08:11→19:46)
[2021-07-03] MEDS: PRAZOSIN 1 MG CAPSULE. PO SCH (08:12)
[2021-07-03] MEDS: POTASSIUM CHLORIDE 20 MEQ TABLET.ER. PO SCH (08:12)
[2021-07-03] MEDS: risperiDONE 0.25 MG TABLET. PO SCH ×3 (08:13→17:05)
[2021-07-03] MEDS: LISINOPRIL 10 MG TABLET PO SCH (08:13)
[2021-07-03 16:01] VITALS: BP 103/55
[2021-07-03] MEDS: PATCH REMOVAL. MC SCH (19:38)
[2021-07-03] MEDS: ACETAMINOPHEN 325 MG TABLET PO PRN (19:39)
[2021-07-03] MEDS: MELATONIN 3 MG TABLET PO SCH (19:39)
[2021-07-03] MEDS: MIRTAZAPINE 7.5 MG TABLET. PO SCH (19:39)
[2021-07-03] MEDS: traZODone 100 MG TABLET. PO PRN (19:46)
--- NOTE | 2021-07-04 03:11 | PN ---
DATE: 07/03/2021 SUBJECTIVE: The patient was seen today, met with the staff, chart reviewed and covering for Dr. Davis. The patient is still confused, inappropriate behavior, wandering, disorganized thinking, and also delusional at times. The patient most of the time, noncommunicative. OBSERVATION: VITAL SIGNS: Temperature 98.4, blood pressure 104/51, pulse 77, respirations 20, O2 sat 98%. GENERAL: Slept about 5 hours last night. Appetite fair. CURRENT MEDICATIONS: Valproic acid 500 mg twice a day and 250 mg daily, trazodone 100 mg at night, melatonin 3 mg at night, Risperdal 0.25 mg 3 times a day, olanzapine 2.5 mg q. 2 hours p.r.n., mirtazapine 7.5 mg at night, fluvoxamine 25 mg daily, and prazosin 3 mg daily. The patient is not having any side effects to the medications. LABORATORY DATA: The patient's lab reviewed. The patient's white cell count 3.4. The patient's BUN 43, sodium 146. ASSESSMENT: 1. Dementia, most likely Alzheimer's with the depression and behavioral disturbances. 2. Generalized anxiety disorder. 3. Posttraumatic stress disorder. PLAN: To continue with treatment. LENGTH OF STAY: 5-[address]: Clive TID: [id number]
[2021-07-04 05:42] VITALS: BP 125/73
[2021-07-04] MEDS: DOCUSATE 100 MG/10 ML SOLUTION. PO SCH ×2 (07:26→20:18)
[2021-07-04] MEDS: POLYETHYLENE GLYCOL 3350 17 GM PACKET. PO SCH (07:27)
[2021-07-04] MEDS: PRAZOSIN 1 MG CAPSULE. PO SCH (07:50)
[2021-07-04] MEDS: VALPROATE ACID 250 MG/5 ML ORAL SOLUTION PO SCH ×3 (07:50→20:25)
[2021-07-04] MEDS: LISINOPRIL 10 MG TABLET PO SCH (07:51)
[2021-07-04] MEDS: risperiDONE 0.25 MG TABLET. PO SCH ×3 (07:51→16:47)
[2021-07-04] MEDS: POTASSIUM CHLORIDE 20 MEQ TABLET.ER. PO SCH (07:51)
[2021-07-04] MEDS: ACETAMINOPHEN 325 MG TABLET PO PRN (13:20)
[2021-07-04 15:59] VITALS: BP 108/63
--- NOTE | 2021-07-04 17:54 | TX PLAN ---
Interdisciplinary Tx Plan Admission Information Jun 13, 2021 at 10:53 Legal Status (on Admission): Voluntary DPOA/Guardian Name: Heidy Sunon- Contact Other Contact Name: [facility] Other Contact Verified Code Status: DNR Allergies: Coded Allergies: No Known Drug Allergies (Unverified , 08/28/20) Diagnoses Primary Diagnosis: Dementia with BD Reasons for Admission: Aggressive, Combative, Confusion/Disoriented, Other Problem in Patient's Words: May need further medication review. Additional Admission Comments: According to the intake, pt is intrusive, aggressive with staff and peers, refusing meds, frequent falls. Problems Active Problems: restless wandering intrusive resistive to medications Pt Strengths/Limitations Ability for [place]: Poor Cognitive Functioning/Ability: Fair Communication Skills/Ability: Fair Financial Resources: Fair Insight/Judgement: Poor Intellectual Ability: Fair Physical Health: Fair Social Skills: Poor Stability in School/Work: Poor Verbal Skills: Fair Discharge Criteria Discharge Criteria: Adequate arrangements @DC, Improved behavior, Improved mood/thought Preliminary Discharge Plan Preliminary DC Plan: Memory Care Special Precautions Fall Risk: High Initial D/C Plan Pt will plan to return to [facility] Identified Discharge Needs: Out patient psychiatry Currently Utilized Resources Currently Utilized Resources/P: PCP Referrals Community Resources: referral to outpt psychiatry Identified Problems/Hx/Goals Objectives/Short-Term Goals Short Term Goals: Dec. Aggression, Dec. Outbursts, Medication Stabilization, Monitor Med Effects, Promote Coping Skill Short Term Goals in Patient's: N/A Interventions/Frequency Staff Interventions/Frequency&: Psychiatrist to assess pt at least 3x per week for medicaiton management Social Work to assess pt at least 2x per week to identify barriers to care and finalize discharge plans. Nursing to assess medication effects, behavior modification, and complete 15 minute checks daily. Encourage participation in group activities (if applicable) or 1:1 engagement based of activity therapy goals. 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 He was later the state [employer] for [place]; he retired in 2003 Education: Eric graduated high school and attended some college. Community Follow-up PCP Treatment Plan Explained Patient/Emergency Services Professional had this treatment plan explained to him/her as indicated by the signature below and has been given the opportunity to ask questions and make suggestions: Date: Patient/Emergency Services Professional Signature: Status Update Update Pt is eating a little over 75% of meals and sleeping on average 5 hours per night. Pt is wandering, confused and disorganized. Pt is resistive to cares but not combative or aggressive at that time. It is noted that pt is incontinent of bowel and bladder all around the unit. They have found pt urinating in the halls and even having bowel movements in which he is pulling from his brief. Nursing has placed pt in a one-piece to refrain pt from playing in his bowel movement; however, pt will still somehow get his bowel movement removed. Staff will attempt to develop a plan of action for pt in decreasing this behavior. Pt is also noted to have pitting Edema and should have on Azam hose; which pt has been noted to take them off as well. Pt is to return to [facility] once stabilized. HERMAN DELAROSA July 04, 2021 17:54
[2021-07-04] MEDS: PATCH REMOVAL. MC SCH (17:59)
[2021-07-04] MEDS: MIRTAZAPINE 7.5 MG TABLET. PO SCH (20:25)
[2021-07-04] MEDS: MELATONIN 3 MG TABLET PO SCH (20:26)
[2021-07-04] MEDS: traZODone 100 MG TABLET. PO PRN (21:01)
--- NOTE | 2021-07-05 02:05 | PN ---
DATE: 07/04/2021 SUBJECTIVE: The patient was seen today, met with the staff. Chart was reviewed and covering for Dr. Davis. Also participated in the treatment review conference today. Staff reports increased confusion, wandering, disorganized, inability to comprehend his surroundings, able to hold a conversation briefly. The patient has to be redirected. OBSERVATION: VITAL SIGNS: Temperature 97.3, blood pressure 125/73, pulse 72, respirations 20, O2 sat 96%. GENERAL: Slept about 7 hours last night. The patient's appetite is fair. CURRENT MEDICATIONS: Valproic acid 500 mg twice a day and 250 mg daily, trazodone 100 mg at night, melatonin 3 mg at night, Risperdal 0.25 mg 3 times a day, mirtazapine 7.5 mg at night, fluvoxamine 25 mg daily and prazosin 3 mg daily. The patient is also on olanzapine 2.5 mg q. 2 hours p.r.n. LABORATORY DATA: The patient's lab reviewed. ASSESSMENT: 1. Dementia, most likely Alzheimer's with depression and behavioral disturbances. 2. Generalized anxiety disorder. 3. Post-traumatic stress disorder. PLAN: To continue with treatment. LENGTH OF STAY: Five to seven days. ANUPAMA DR: Clive TID: [id number]
[2021-07-05 05:57] VITALS: BP 147/66
[2021-07-05] MEDS: DOCUSATE 100 MG/10 ML SOLUTION. PO SCH ×2 (07:50→19:34)
[2021-07-05] MEDS: POTASSIUM CHLORIDE 20 MEQ TABLET.ER. PO SCH (07:50)
[2021-07-05] MEDS: PRAZOSIN 1 MG CAPSULE. PO SCH (07:50)
[2021-07-05] MEDS: risperiDONE 0.25 MG TABLET. PO SCH ×3 (07:50→16:59)
[2021-07-05] MEDS: VALPROATE ACID 250 MG/5 ML ORAL SOLUTION PO SCH ×3 (07:50→19:35)
[2021-07-05] MEDS: LISINOPRIL 10 MG TABLET PO SCH (07:51)
[2021-07-05] MEDS: POLYETHYLENE GLYCOL 3350 17 GM PACKET. PO SCH (07:55)
[2021-07-05 15:31] VITALS: BP 115/68
[2021-07-05] MEDS: PATCH REMOVAL. MC SCH (16:59)
[2021-07-05] MEDS: MIRTAZAPINE 7.5 MG TABLET. PO SCH (19:35)
[2021-07-05] MEDS: MELATONIN 3 MG TABLET PO SCH (19:35)
[2021-07-05] MEDS: traZODone 100 MG TABLET. PO PRN (23:51)
[2021-07-06 05:58] VITALS: BP 103/57
--- NOTE | 2021-07-06 07:00 | PN ---
DATE: 07/05/2021 SUBJECTIVE: The patient was seen today, met with the staff, chart reviewed. Covering for Dr. Davis. Staff reports continued behavior problems, wandering, confusion, disorganized thinking and also being combative during ADLs. OBSERVATION: VITAL SIGNS: Temperature 98.0, blood pressure 115/68, pulse 68, respirations 20, O2 sat 95. CURRENT MEDICATIONS: Valproic acid 500 mg twice a day and 250 mg daily, trazodone 100 mg at night, melatonin 3 mg at night, Risperdal 0.25 mg 3 times a day, mirtazapine 7.5 mg at night, fluvoxamine 25 mg daily and prazosin 3 mg daily. The patient is not having any side effects to medications. The patient is not having any physical complaints. LABORATORY DATA: Reviewed. ASSESSMENT: 1. Dementia, most likely Alzheimer's with depression and behavioral disturbances. 2. Generalized anxiety disorder. 3. Posttraumatic stress disorder. PLAN: To continue treatment. LENGTH OF STAY: Five to seven days. XI DR: Clive TID: [id number]
[2021-07-06] MEDS: DOCUSATE 100 MG/10 ML SOLUTION. PO SCH ×2 (07:59→17:44)
[2021-07-06] MEDS: POTASSIUM CHLORIDE 20 MEQ TABLET.ER. PO SCH (08:00)
[2021-07-06] MEDS: VALPROATE ACID 250 MG/5 ML ORAL SOLUTION PO SCH ×3 (08:01→17:44)
[2021-07-06] MEDS: risperiDONE 0.25 MG TABLET. PO SCH ×3 (08:01→17:43)
[2021-07-06] MEDS: PRAZOSIN 1 MG CAPSULE. PO SCH (08:02)
[2021-07-06] MEDS: POLYETHYLENE GLYCOL 3350 17 GM PACKET. PO SCH (08:03)
[2021-07-06] MEDS: LISINOPRIL 10 MG TABLET PO SCH (08:03)
[2021-07-06 15:36] VITALS: BP 151/66
[2021-07-06] MEDS: PATCH REMOVAL. MC SCH (17:43)
[2021-07-06] MEDS: MIRTAZAPINE 7.5 MG TABLET. PO SCH (17:44)
[2021-07-06] MEDS: MELATONIN 3 MG TABLET PO SCH (17:44)
[2021-07-06] MEDS: traZODone 100 MG TABLET. PO PRN ×2 (22:16→23:48)
[2021-07-06] MEDS: ACETAMINOPHEN 325 MG TABLET PO PRN (23:48)
--- NOTE | 2021-07-07 03:43 | PN ---
DATE: 07/06/2021 SUBJECTIVE: The patient was seen today, met with the staff. Chart was reviewed and covering for Dr. Davis. The patient's behavior remains the same, wandering, confused, disorganized and difficult to redirect and also social withdrawal. OBSERVATION: VITAL SIGNS: Temperature 97.6, blood pressure 103/57, pulse 60, respirations 18, O2 sat 97%. Slept about 6-1/2 hours last night. The patient's appetite is fair. CURRENT MEDICATIONS: Valproic acid 500 mg twice a day and 250 mg daily, trazodone 100 mg at night, melatonin 3 mg at night, Risperdal 0.25 mg 3 times a day, mirtazapine 7.5 mg at night, fluvoxamine 25 mg daily and prazosin 3 mg daily. The patient is not exhibiting any side effects to medications. LABORATORY DATA: Reviewed. ASSESSMENT: 1. Dementia, most likely Alzheimer's with the depression and behavioral disturbances. 2. Generalized anxiety disorder. 3. Posttraumatic stress disorder. PLAN: To continue with treatment. LENGTH OF STAY: Five to seven days. XI DR: Clive TID: [id number]
[2021-07-07 05:45] VITALS: BP 148/69
[2021-07-07] MEDS: DOCUSATE 100 MG/10 ML SOLUTION. PO SCH ×2 (07:42→20:05)
[2021-07-07] MEDS: MIRTAZAPINE 7.5 MG TABLET. PO SCH ×2 (07:43→20:10)
[2021-07-07] MEDS: VALPROATE ACID 250 MG/5 ML ORAL SOLUTION PO SCH ×3 (07:43→20:05)
[2021-07-07] MEDS: MELATONIN 3 MG TABLET PO SCH ×2 (07:43→20:10)
[2021-07-07] MEDS: POLYETHYLENE GLYCOL 3350 17 GM PACKET. PO SCH (07:48)
[2021-07-07] MEDS: PRAZOSIN 1 MG CAPSULE. PO SCH (07:48)
[2021-07-07] MEDS: risperiDONE 0.25 MG TABLET. PO SCH ×3 (07:49→17:00)
[2021-07-07] MEDS: POTASSIUM CHLORIDE 20 MEQ TABLET.ER. PO SCH (07:49)
[2021-07-07] MEDS: LISINOPRIL 10 MG TABLET PO SCH (07:51)
[2021-07-07 15:54] VITALS: BP 134/44
[2021-07-07] MEDS ORDERED: PATCH REMOVAL. MC PRN (17:30)
[2021-07-07] MEDS: traZODone 100 MG TABLET. PO PRN (20:06)
[2021-07-07] MEDS: ACETAMINOPHEN 325 MG TABLET PO PRN (22:10)
--- NOTE | 2021-07-07 23:48 | PN ---
DATE: 07/07/2021 SUBJECTIVE: The patient was seen today, met with the staff. Chart was reviewed and covering for Dr. Davis. Staff reports increased confusion, wandering and difficult to redirect and also behavioral issues and also spreading feces on the floor. OBSERVATION: VITAL SIGNS: Temperature 97.4, blood pressure 148/69, pulse 70, respirations 18, O2 sat 97%. GENERAL: Slept about 3 hours last night. The patient's appetite decreased. CURRENT MEDICATIONS: Valproic acid 500 mg twice daily and 250 mg daily, trazodone 100 mg at night, melatonin 3 mg at night, Risperdal 0.25 mg 3 times a day, mirtazapine 7.5 mg at night, fluvoxamine 25 mg daily and prazosin 3 mg daily. The patient is not having any major side effects, no sedation. LABORATORY DATA: Reviewed. ASSESSMENT: 1. Dementia, most likely Alzheimer's with the depression and behavioral disturbances. 2. Generalized anxiety disorder. 3. Posttraumatic stress disorder. PLAN: To continue with the treatment. LENGTH OF STAY: Five to seven days. ANUPAMA DR: Clive TID: [id number]
[2021-07-08] MEDS: DICLOFENAC SODIUM 1% TOPICAL GEL 100GM TUBE. TP PRN (01:18)
[2021-07-08 05:51] VITALS: BP 137/65
[2021-07-08] MEDS: DOCUSATE 100 MG/10 ML SOLUTION. PO SCH ×2 (08:11→20:34)
[2021-07-08] MEDS: POLYETHYLENE GLYCOL 3350 17 GM PACKET. PO SCH (08:12)
[2021-07-08] MEDS: VALPROATE ACID 250 MG/5 ML ORAL SOLUTION PO SCH ×3 (08:12→20:34)
[2021-07-08] MEDS: LISINOPRIL 10 MG TABLET PO SCH (08:13)
[2021-07-08] MEDS: PRAZOSIN 1 MG CAPSULE. PO SCH (08:13)
[2021-07-08] MEDS: risperiDONE 0.25 MG TABLET. PO SCH ×3 (08:13→17:16)
[2021-07-08] MEDS: POTASSIUM CHLORIDE 20 MEQ TABLET.ER. PO SCH (08:13)
[2021-07-08 16:01] VITALS: BP 149/59
[2021-07-08] MEDS: MIRTAZAPINE 7.5 MG TABLET. PO SCH (20:34)
[2021-07-08] MEDS: MELATONIN 3 MG TABLET PO SCH (20:34)
[2021-07-08] MEDS: traZODone 100 MG TABLET. PO PRN (20:40)
--- NOTE | 2021-07-09 05:06 | PN ---
DATE: 07/08/2021 SUBJECTIVE: The patient was seen today, met with the staff, chart reviewed, and covering for Dr. Davis. Staff reports continued behavior problems, being restless, wandering, intrusive, and continues to urinate on the floor, difficult to redirect. He is also confused with significant cognitive deficits. OBSERVATION: VITAL SIGNS: Temperature 97.6, blood pressure 149/59, pulse 70, respirations 16, O2 sat 97%. GENERAL: Slept about 3-4 hours last night. The patient's appetite is fair. The patient apparently has not lost any weight. CURRENT MEDICATIONS: Valproic acid 500 mg twice a day and 250 mg daily, trazodone 100 mg at night, melatonin 3 mg at night, Risperdal 0.25 mg 3 times a day, and mirtazapine 7.5 mg at night. The patient is also on fluvoxamine 25 mg daily and prazosin 3 mg daily. The patient is not having any side effects to medications. LABORATORY DATA: The patient's lab reviewed. ASSESSMENT: 1. Dementia, most likely Alzheimer's with depression and behavioral disturbances. 2. Generalized anxiety disorder. 3. Posttraumatic stress disorder. PLAN: To continue with treatment. LENGTH OF STAY: 5-7 days. ROSA/CHANCE/DIOGENES DR: ROSA/essence TID: [id number]
[2021-07-09 05:54] VITALS: BP 130/73
[2021-07-09 06:14] LABS: BASO % 1 % (0-3); EOS # 0.3 x10^3/uL (0.0-0.7); EOS % 6 % (0-3); HEMATOCRIT 35.6 % (39.0-53.0); HEMOGLOBIN 11.6 g/dL (13.0-17.5); LYMPH # 1.3 x10^3/uL (1.0-4.8); LYMPH % 27 % (24-48); MEAN CORPUSCULAR HEMOGLOBIN 29 pg (25-35); MEAN CORPUSCULAR HGB CONC 33 g/dL (31-37); MEAN CORPUSCULAR VOLUME 89 fL (79-100); MONO # 0.8 x10^3/uL (0.0-1.1); MONO % 17 % (0-9); NEUT # 2.3 x10^3uL (1.8-7.7); NEUT % 49 % (31-73); PLATELET COUNT 149 x10^3/uL (140-400); WHITE BLOOD COUNT 4.7 x10^3/uL (4.0-11.0)
[2021-07-09 06:42] LABS: ALBUMIN 3.1 g/dL (3.4-5.0); ALBUMIN/GLOBULIN RATIO 0.8 (1.0-1.7); CALCIUM 8.7 mg/dL (8.5-10.1); CREATININE 1.1 mg/dL (0.7-1.3); GFR 64.7; POTASSIUM 4.5 mmol/L (3.5-5.1); TOTAL BILIRUBIN 0.3 mg/dL (0.2-1.0); TOTAL PROTEIN 6.8 g/dL (6.4-8.2)
[2021-07-09] MEDS: DOCUSATE 100 MG/10 ML SOLUTION. PO SCH ×2 (09:00→19:42)
[2021-07-09] MEDS: VALPROATE ACID 250 MG/5 ML ORAL SOLUTION PO SCH ×3 (09:00→19:42)
[2021-07-09] MEDS: PRAZOSIN 1 MG CAPSULE. PO SCH (09:31)
[2021-07-09] MEDS: POTASSIUM CHLORIDE 20 MEQ TABLET.ER. PO SCH (09:32)
[2021-07-09] MEDS: LISINOPRIL 10 MG TABLET PO SCH (09:32)
[2021-07-09] MEDS: risperiDONE 0.25 MG TABLET. PO SCH ×3 (09:32→17:48)
[2021-07-09] MEDS: POLYETHYLENE GLYCOL 3350 17 GM PACKET. PO SCH (09:33)
[2021-07-09 15:56] VITALS: BP 146/72
[2021-07-09] MEDS: GABAPENTIN 100 MG CAPSULE. PO SCH ×2 (17:48→19:45)
[2021-07-09] MEDS: MELATONIN 3 MG TABLET PO SCH (19:42)
[2021-07-09] MEDS: MIRTAZAPINE 15 MG TABLET PO SCH (19:45)
[2021-07-09] MEDS: traZODone 100 MG TABLET. PO PRN (19:56)
[2021-07-10 06:08] VITALS: BP 121/60
--- NOTE | 2021-07-10 07:57 | PN ---
DATE: 07/09/2021 SUBJECTIVE: The patient was seen today, met with the staff. Chart was reviewed. I am covering for Dr. Davis. Staff reports increased confusion, wandering and difficult to redirect, came to the breakfast with his penis out and urinating all over and also picking up his feces out of his diaper and threw it across the dining room. The patient continues to having problems with the behavior and staff has to spend a lot of time trying to deal with his problems. OBSERVATION: VITAL SIGNS: Temperature 97.4, blood pressure 146/72, pulse 92, respirations 18, O2 sat 98%. GENERAL: Slept less than an hour last night. The patient's appetite is decreased. CURRENT MEDICATIONS: Valproic acid 500 mg twice a day and 250 mg daily, trazodone 100 mg at night p.r.n., Risperdal 0.25 mg 3 times a day, melatonin 3 mg at night, olanzapine 2.5 mg every 2 hours p.r.n., prazosin 3 mg daily. The patient is not having any side effects, no sedation, no falls. LABORATORY DATA: The patient's lab reviewed. ASSESSMENT: 1. Dementia, most likely Alzheimer's with depression and behavioral disturbances. 2. Generalized anxiety disorder. 3. Posttraumatic stress disorder. PLAN: To continue with treatment. The patient's medications reviewed. Staff requesting to increase the medications, so that he can sleep better and also contain his behavior. The patient's Remeron was increased to 15 mg at night and also start on gabapentin 100 mg 4 times a day. LENGTH OF STAY: Five to seven days. EUGENIO DR: Clive TID: [id number]
[2021-07-10] MEDS: DOCUSATE 100 MG/10 ML SOLUTION. PO SCH ×2 (08:13→19:49)
[2021-07-10] MEDS: POTASSIUM CHLORIDE 20 MEQ TABLET.ER. PO SCH (08:13)
[2021-07-10] MEDS: VALPROATE ACID 250 MG/5 ML ORAL SOLUTION PO SCH ×3 (08:13→19:50)
[2021-07-10] MEDS: PRAZOSIN 1 MG CAPSULE. PO SCH (08:14)
[2021-07-10] MEDS: GABAPENTIN 100 MG CAPSULE. PO SCH ×4 (08:14→19:51)
[2021-07-10] MEDS: POLYETHYLENE GLYCOL 3350 17 GM PACKET. PO SCH (08:14)
[2021-07-10] MEDS: risperiDONE 0.25 MG TABLET. PO SCH ×3 (08:15→16:52)
[2021-07-10] MEDS: LISINOPRIL 10 MG TABLET PO SCH (08:15)
[2021-07-10 16:16] VITALS: BP 130/60
[2021-07-10] MEDS: MELATONIN 3 MG TABLET PO SCH (19:50)
[2021-07-10] MEDS: MIRTAZAPINE 15 MG TABLET PO SCH (19:51)
[2021-07-11 06:10] VITALS: BP 93/62
[2021-07-11] MEDS: POTASSIUM CHLORIDE 20 MEQ TABLET.ER. PO SCH (07:41)
[2021-07-11] MEDS: risperiDONE 0.25 MG TABLET. PO SCH ×3 (07:41→16:46)
--- NOTE | 2021-07-11 07:44 | PN ---
DATE: 07/10/2021 SUBJECTIVE: The patient was seen today, met with the staff. Chart was reviewed and covering for Dr. Davis. Staff reports continued behavior problems, increased confusion, wandering, pacing, difficult to redirect. The patient's gait is unsteady, but did not have any falls. OBSERVATION: VITAL SIGNS: Temperature 97.1, blood pressure 121/60, pulse 93, respirations 20, O2 sat 94%. GENERAL: Slept about 5 hours last night. The patient's appetite decreased. CURRENT MEDICATIONS: Valproic acid 500 mg twice a day and 250 mg daily, trazodone 100 mg at night p.r.n., Risperdal 0.25 mg 3 times a day, melatonin 3 mg at night, olanzapine 2.5 mg q. 2 hours p.r.n., prazosin 3 mg daily. The patient is not showing any side effects of the medications. LABORATORY DATA: The patient's lab reviewed. ASSESSMENT: 1. Dementia, most likely Alzheimer's with depression and behavioral disturbances. 2. Generalized anxiety disorder. 3. Posttraumatic stress disorder. PLAN: Continue with current treatment. The patient's Remeron was increased to 15 mg last night and also on gabapentin 100 mg 4 times a day. LENGTH OF STAY: Five to seven days. XI DR: Clive TID: [id number] [facility]
[2021-07-11] MEDS: ACETAMINOPHEN 325 MG TABLET PO PRN ×2 (09:43→20:13)
[2021-07-11] MEDS: VALPROATE ACID 250 MG/5 ML ORAL SOLUTION PO SCH ×2 (13:26→19:50)
--- NOTE | 2021-07-11 14:29 | TX PLAN ---
Interdisciplinary Tx Plan Admission Information Jun 13, 2021 at 10:53 Legal Status (on Admission): Voluntary DPOA/Guardian Name: Heidy Sunon- Contact Other Contact Name: [facility] Other Contact Verified Code Status: DNR Allergies: Coded Allergies: No Known Drug Allergies (Unverified , 08/28/20) Diagnoses Primary Diagnosis: Dementia with BD Reasons for Admission: Aggressive, Combative, Confusion/Disoriented, Other Problem in Patient's Words: May need further medication review. Additional Admission Comments: According to the intake, pt is intrusive, aggressive with staff and peers, refusing meds, frequent falls. Problems Active Problems: restless wandering intrusive resistive to medications Pt Strengths/Limitations Ability for Continental: Poor Cognitive Functioning/Ability: Fair Communication Skills/Ability: Fair Financial Resources: Fair Insight/Judgement: Poor Intellectual Ability: Fair Physical Health: Fair Social Skills: Poor Stability in School/Work: Poor Verbal Skills: Fair Discharge Criteria Discharge Criteria: Adequate arrangements @DC, Improved behavior, Improved mood/thought Preliminary Discharge Plan Preliminary DC Plan: Memory Care Special Precautions Fall Risk: High Initial D/C Plan Pt will plan to return to [facility] Identified Discharge Needs: Out patient psychiatry Currently Utilized Resources Currently Utilized Resources/P: PCP Referrals Community Resources: referral to outpt psychiatry Identified Problems/Hx/Goals Objectives/Short-Term Goals Short Term Goals: Dec. Aggression, Dec. Outbursts, Medication Stabilization, Monitor Med Effects, Promote Coping Skill Short Term Goals in Patient's: N/A Interventions/Frequency Staff Interventions/Frequency&: Psychiatrist to assess pt at least 3x per week for medicaiton management Social Work to assess pt at least 2x per week to identify barriers to care and finalize discharge plans. Nursing to assess medication effects, behavior modification, and complete 15 minute checks daily. Encourage participation in group activities (if applicable) or 1:1 engagement based of activity therapy goals. 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 He was later the state [employer] for [place]; he retired in 2003 Education: Eric graduated high school and attended some college. 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 Pt is confused, disorganized and continues to aimlessly wander the unit. Pt does continue to urinate and defecate in random places around the unit with no cognitive awareness of not being in or around a bathroom. Staff attempted to have pt in onsie to prevent this; however, pt gets more agitated in wearing them. Treatment team discussed having pt started on a toileting schedule. Nursing noted that the hospitalist stopped pt medications and would like to have orders for them restarted: restart Depakene 500mg BID, 250 at 1400 with labs and levels in three days, Prazosin 1 mg daily and Gabapentin 100mg BID. ELOS for another 7-10 days. HERMAN DELAROSA July 11, 2021 14:29
[2021-07-11 16:25] VITALS: BP 110/65
[2021-07-11] MEDS: MELATONIN 3 MG TABLET PO SCH (19:50)
[2021-07-11] MEDS: MIRTAZAPINE 15 MG TABLET PO SCH (19:51)
[2021-07-11] MEDS: GABAPENTIN 100 MG CAPSULE. PO SCH (19:51)
--- NOTE | 2021-07-12 03:16 | PN ---
DATE: 07/11/2021 SUBJECTIVE: The patient was seen today, met with the staff. Chart was reviewed and I am covering for Dr. Davis. Also participated in the treatment review meeting today. The patient is still confused, disorganized, wanders. The patient is eating better 75-100% of meals. Sleeping on average about 4 hours at night. The patient continues to urinate and losing control over his bowels. The patient has significant cognitive decline and difficult to redirect. The patient also gets agitated when staff tried to redirect him: OBSERVATION: VITAL SIGNS: Temperature 98.4, blood pressure 110/65, pulse 83, respirations 18, O2 sat 97%. GENERAL: Slept about 7 hours last night. CURRENT MEDICATIONS: Valproic acid 500 mg twice a day, 250 mg daily, Risperdal 0.25 mg 3 times daily, melatonin 3 mg at night, olanzapine 2.5 mg q. 2 hours p.r.n., prazosin 3 mg daily. The patient also on mirtazapine 15 mg at night. The patient is not having any side effects to medications. LABORATORY DATA: The patient's lab reviewed. ASSESSMENT: 1. Dementia, most likely Alzheimer's with depression and behavioral disturbances. 2. Generalized anxiety disorder. 3. Posttraumatic stress disorder. PLAN: To continue with the treatment. The patient is also on gabapentin 100 mg q.i.d. p.o. LENGTH OF STAY: Five to seven days. ANUPAMA DR: Clive TID: [id number]
[2021-07-12 05:35] VITALS: BP 116/72
[2021-07-12] MEDS: PRAZOSIN 1 MG CAPSULE. PO SCH (07:46)
[2021-07-12] MEDS: ACETAMINOPHEN 325 MG TABLET PO PRN (07:46)
[2021-07-12] MEDS: risperiDONE 0.25 MG TABLET. PO SCH ×3 (07:46→17:02)
[2021-07-12] MEDS: POTASSIUM CHLORIDE 20 MEQ TABLET.ER. PO SCH (07:46)
[2021-07-12] MEDS: GABAPENTIN 100 MG CAPSULE. PO SCH ×2 (07:46→19:48)
[2021-07-12] MEDS: VALPROATE ACID 250 MG/5 ML ORAL SOLUTION PO SCH ×3 (07:47→19:48)
[2021-07-12 15:31] VITALS: BP 113/62
[2021-07-12] MEDS: MIRTAZAPINE 15 MG TABLET PO SCH (19:48)
[2021-07-12] MEDS: MELATONIN 3 MG TABLET PO SCH (19:48)
[2021-07-13] MEDS: traZODone 100 MG TABLET. PO PRN ×3 (00:22→22:13)
--- NOTE | 2021-07-13 04:05 | PN ---
DATE: 07/12/2021 SUBJECTIVE: The patient was seen today, met with the staff, chart reviewed, and covering for Dr. Davis. Staff reports continued problems, mostly confusion, disorganized thinking, wandering and difficult to redirect. Staff also reports he has shown some improvement. His gait has improved. He has not had any falls. OBSERVATION: VITAL SIGNS: Temperature 97.5, blood pressure 113/62, pulse 74, respirations 20, O2 sat 96%. GENERAL: Slept about 5 hours last night. CURRENT MEDICATIONS: Prazosin 1 mg daily, gabapentin 100 mg twice a day, valproic acid 500 mg twice a day, and 250 mg daily, mirtazapine 15 mg at night, trazodone 100 mg at night p.r.n., melatonin 3 mg at night, Risperdal 0.25 mg 3 times a day, olanzapine 2.5 mg q. 2 hours p.r.n., fluvoxamine 25 mg daily. The patient is not having any side effects. LABORATORY DATA: The patient's lab reviewed. ASSESSMENT: 1. Dementia, most likely Alzheimer's with depression and behavioral disturbances. 2. Generalized anxiety disorder. 3. Posttraumatic stress disorder. PLAN: To continue with the treatment. The patient is also on gabapentin 100 mg 4 times a day. LENGTH OF STAY: Five to seven days. The patient will be returned to [facility] sometime next week. NANETTE DR: Clive TID: [id number]
[2021-07-13 05:44] VITALS: BP 127/78
[2021-07-13] MEDS: GABAPENTIN 100 MG CAPSULE. PO SCH ×2 (07:39→19:49)
[2021-07-13] MEDS: POTASSIUM CHLORIDE 20 MEQ TABLET.ER. PO SCH (07:40)
[2021-07-13] MEDS: risperiDONE 0.25 MG TABLET. PO SCH ×3 (07:40→17:15)
[2021-07-13] MEDS: VALPROATE ACID 250 MG/5 ML ORAL SOLUTION PO SCH ×3 (07:40→19:49)
[2021-07-13] MEDS: PRAZOSIN 1 MG CAPSULE. PO SCH (07:40)
[2021-07-13 16:04] VITALS: BP 112/52
[2021-07-13] MEDS: MIRTAZAPINE 15 MG TABLET PO SCH (19:49)
[2021-07-13] MEDS: MELATONIN 3 MG TABLET PO SCH (19:49)
[2021-07-13] MEDS: ACETAMINOPHEN 325 MG TABLET PO PRN (23:04)
[2021-07-13] MEDS: LIDOCAINE (700MG/PATCH) PATCH. TP PRN (23:05)
--- NOTE | 2021-07-14 05:33 | PN ---
DATE: 07/13/2021 SUBJECTIVE: The patient was seen today, met with the staff. Chart was reviewed and I am covering for Dr. Davis. Staff reports increased confusion, disorganized and wanders, apparently not eating, has to be fed. Staff reports no falls. OBSERVATION: VITAL SIGNS: Stable. GENERAL: Slept only 1 or 2 hours at night. Labs reviewed. CURRENT MEDICATIONS: Prazosin 1 mg daily, gabapentin 100 mg twice a day, valproic acid 500 mg twice a day and 250 mg daily, mirtazapine 15 mg at night, trazodone 100 mg at night p.r.n., melatonin 3 mg at night, Risperdal 0.25 mg 3 times a day, olanzapine 2.5 mg q. 2 hours p.r.n., fluvoxamine 25 mg daily. The patient is not showing any side effects to medications. ASSESSMENT: 1. Dementia, most likely Alzheimer's with the depression and behavioral disturbances. 2. Generalized anxiety disorder. 3. Posttraumatic stress disorder. PLAN: To continue with the treatment. The patient will continue on his gabapentin 100 mg twice a day. LENGTH OF STAY: Five to seven days. ROSA/ALESHIA/DIPIKA DR: Clive TID: [id number]
[2021-07-14 06:26] VITALS: BP 129/59
[2021-07-14] MEDS: PRAZOSIN 1 MG CAPSULE. PO SCH (07:42)
[2021-07-14] MEDS: GABAPENTIN 100 MG CAPSULE. PO SCH ×2 (07:42→20:08)
[2021-07-14] MEDS: VALPROATE ACID 250 MG/5 ML ORAL SOLUTION PO SCH ×3 (07:43→20:08)
[2021-07-14] MEDS: POTASSIUM CHLORIDE 20 MEQ TABLET.ER. PO SCH (07:43)
[2021-07-14] MEDS: risperiDONE 0.25 MG TABLET. PO SCH ×3 (07:43→17:00)
[2021-07-14] MEDS ORDERED: FUROSEMIDE 40 MG TABLET PO ONE (11:15)
[2021-07-14 15:53] VITALS: BP 126/49
[2021-07-14] MEDS: traZODone 100 MG TABLET. PO PRN (20:08)
[2021-07-14] MEDS: MIRTAZAPINE 15 MG TABLET PO SCH (20:08)
[2021-07-14] MEDS: MELATONIN 3 MG TABLET PO SCH (20:08)
[2021-07-14] MEDS: ACETAMINOPHEN 325 MG TABLET PO PRN (20:10)
[2021-07-14] MEDS: LIDOCAINE (700MG/PATCH) PATCH. TP PRN (20:10)
[2021-07-15 05:55] VITALS: BP 174/83
[2021-07-15 06:20] VITALS: BP 135/62
[2021-07-15 06:40] LABS: BASO % 1 % (0-3); EOS # 0.3 x10^3/uL (0.0-0.7); EOS % 8 % (0-3); HEMATOCRIT 36.5 % (39.0-53.0); HEMOGLOBIN 11.9 g/dL (13.0-17.5); LYMPH # 1.1 x10^3/uL (1.0-4.8); LYMPH % 27 % (24-48); MEAN CORPUSCULAR HEMOGLOBIN 29 pg (25-35); MEAN CORPUSCULAR HGB CONC 33 g/dL (31-37); MEAN CORPUSCULAR VOLUME 90 fL (79-100); MONO # 0.7 x10^3/uL (0.0-1.1); MONO % 17 % (0-9); NEUT # 1.9 x10^3uL (1.8-7.7); NEUT % 47 % (31-73); PLATELET COUNT 171 x10^3/uL (140-400); RED BLOOD COUNT 4.06 x10^6/uL (4.30-5.70); RED CELL DISTRIBUTION WIDTH 15.6 % (11.5-14.5)
[2021-07-15 06:46] LABS: ALBUMIN 3.1 g/dL (3.4-5.0); ALBUMIN/GLOBULIN RATIO 0.8 (1.0-1.7); CALCIUM 8.7 mg/dL (8.5-10.1); CREATININE 1.2 mg/dL (0.7-1.3); GFR 58.6; POTASSIUM 4.1 mmol/L (3.5-5.1); TOTAL BILIRUBIN 0.3 mg/dL (0.2-1.0)
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
[2021-07-15] MEDS: risperiDONE 0.25 MG TABLET. PO SCH ×3 (08:22→17:12)
[2021-07-15] MEDS: POTASSIUM CHLORIDE 20 MEQ TABLET.ER. PO SCH ×2 (08:23→19:40)
[2021-07-15] MEDS: PRAZOSIN 1 MG CAPSULE. PO SCH (08:23)
[2021-07-15] MEDS: GABAPENTIN 100 MG CAPSULE. PO SCH ×2 (08:23→19:38)
[2021-07-15] MEDS: VALPROATE ACID 250 MG/5 ML ORAL SOLUTION PO SCH ×3 (08:24→19:38)
[2021-07-15 16:08] VITALS: BP 116/71
[2021-07-15] MEDS: MIRTAZAPINE 15 MG TABLET PO SCH (19:38)
[2021-07-15] MEDS: MELATONIN 3 MG TABLET PO SCH (19:38)
[2021-07-15] MEDS: SMZ/TMP 800/160MG TABLET. PO SCH (19:40)
[2021-07-15] MEDS: DOXYCYCLINE HYCLATE 100 MG TABLET PO SCH (19:40)
[2021-07-15] MEDS: traZODone 100 MG TABLET. PO PRN (19:40)
[2021-07-15] MEDS: LIDOCAINE (700MG/PATCH) PATCH. TP PRN (19:48)
--- NOTE | 2021-07-15 21:07 | PN ---
DATE: 07/15/2021 CONSULTATION AND PROGRESS NOTE ATTENDING PHYSICIAN: Dr. Davis. SUBJECTIVE: The patient remains confused. He is less agitated. He is not having behavioral issues. I was asked to see him regarding his swollen ankles and the redness in both feet. OBJECTIVE FINDINGS: VITAL SIGNS: Blood pressure this morning is 135/62 mmHg. He is afebrile. Oxygen saturation 100% on room air. HEENT: Head is without trauma. Pupils are reactive. Sclerae nonicteric. LUNGS: Clear. CARDIOVASCULAR: Shows regular heart tones. ABDOMEN: Soft. EXTREMITIES: Showed 3+ pitting edema extending up to his knees. There is redness and erythema consistent with a stasis dermatitis. ASSESSMENT: 1. A 80-year-old gentleman with bilateral pedal edema. 2. Associated stasis dermatitis, most likely this is due to a Staphylococcus infection. 3. Underlying dementia with behavioral issues. 4. Macular degeneration. 5. Posttraumatic stress disorder. RECOMMENDATIONS: 1. Lasix 80 mg p.o. daily q.a.m. 2. K-Dur 20 mEq p.o. q.a.m. 3. He has no antibiotic allergies. I recommend a 7-day course of doxycycline 100 mg p.o. b.i.d. and Bactrim DS 1 p.o. b.i.d. We shall follow closely. Thank you again for asking me to see the patient for consultation. GARRETT DR: HARI/essence TID: [id number]
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
[2021-07-16] MEDS: traZODone 100 MG TABLET. PO PRN ×2 (01:08→21:31)
[2021-07-16 05:32] VITALS: BP 127/54
[2021-07-16] MEDS: GABAPENTIN 100 MG CAPSULE. PO SCH ×2 (07:23→19:22)
[2021-07-16] MEDS: DOXYCYCLINE HYCLATE 100 MG TABLET PO SCH ×2 (07:23→19:11)
[2021-07-16] MEDS: POTASSIUM CHLORIDE 20 MEQ TABLET.ER. PO SCH ×2 (07:23→19:11)
[2021-07-16] MEDS: SMZ/TMP 800/160MG TABLET. PO SCH ×2 (07:23→19:13)
[2021-07-16] MEDS: PRAZOSIN 1 MG CAPSULE. PO SCH (07:23)
[2021-07-16] MEDS: VALPROATE ACID 250 MG/5 ML ORAL SOLUTION PO SCH ×2 (07:24→14:00)
[2021-07-16] MEDS: LACTOBACILLUS RHAMNOSUS GG 1 CAPSULE. PO SCH ×2 (07:40→19:11)
[2021-07-16] MEDS ORDERED: FUROSEMIDE 80 MG TABLET PO SCH (09:00)
[2021-07-16] MEDS: risperiDONE ORAL 1 MG/ML 30ml BOTTLE. SL SCH ×3 (09:00→17:00)
[2021-07-16 16:00] VITALS: BP 124/73
[2021-07-16] MEDS: MIRTAZAPINE 15 MG TABLET PO SCH (19:11)
[2021-07-16] MEDS: MELATONIN 3 MG TABLET PO SCH (19:11)
[2021-07-16] MEDS ORDERED: VALPROATE ACID 250 MG/5 ML ORAL SOLUTION PO SCH (21:00)
[2021-07-17] MEDS ORDERED: VALPROATE ACID 250 MG/5 ML ORAL SOLUTION PO SCH (09:00)
== END 2021-07-17 | DRG 57 ==
LOC: GEROPSY 10:53
PROVIDERS: ADMIT Psychiatry & Neurology Psychiatry; ATTEND Psychiatry & Neurology Psychiatry
DX: G30.9 Alzheimer's disease, unspecified (principal); B95.8 Unspecified staphylococcus as the cause of diseases classified elsewhere; F01.51 Vascular dementia, unspecified severity, with behavioral disturbance; F02.81 Dementia in other diseases classified elsewhere, unspecified severity, with behavioral disturbance; F63.9 Impulse disorder, unspecified; D69.6 Thrombocytopenia, unspecified; D72.819 Decreased white blood cell count, unspecified; F32.A Depression, unspecified; F41.1 Generalized anxiety disorder; F43.10 Post-traumatic stress disorder, unspecified; G47.00 Insomnia, unspecified; H35.30 Unspecified macular degeneration; H91.90 Unspecified hearing loss, unspecified ear; I10 Essential (primary) hypertension; I87.2 Venous insufficiency (chronic) (peripheral); M19.90 Unspecified osteoarthritis, unspecified site; N40.0 Benign prostatic hyperplasia without lower urinary tract symptoms; Z20.822 Contact with and (suspected) exposure to COVID-19; R29.6 Repeated falls; Z66 Do not resuscitate; Z86.73 Personal history of transient ischemic attack (TIA), and cerebral infarction without residual deficits; Z87.891 Personal history of nicotine dependence; Z91.81 History of falling
CPT/HCPCS: 36415; 73502; 74176; 80053; 80061; 80164; 81001; 82140; 82306; 83036; 83540; 83550; 83735; 84436; 84443; 84480; 85025; 85379; 86592; 93005; U0003; 97535